=== PATIENT | male | born 1940 | race Caucasian/White ===

== ENCOUNTER 2017-04-13 17:45 | Inpatient (IN) | payer MEDICARE ==
[2017-04-13 18:12] VITALS: BMI 42.0
--- NOTE | 2017-04-13 18:15 | CT ---
PROCEDURE: CT HEAD WITHOUT CONTRAST. HISTORY: CODE STROKE COMPARISON: None available. TECHNIQUE: Axial computed tomography images were obtained through the head/brain without intravenous contrast. Radiation dose: Total exam DLP = 988 mGy-cm. This CT exam was performed using one or more of the following dose reduction techniques: Automated exposure control, adjustment of the mA and/or kV according to patient size, and/or use of iterative reconstruction technique. FINDINGS: HEMORRHAGE: No intracranial hemorrhage. BRAIN: No mass effect or edema. 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 VENTRICLES: Unremarkable. No hydrocephalus. CALVARIUM: Unremarkable. PARANASAL SINUSES: Unremarkable as visualized. No significant inflammatory changes. MASTOID AIR CELLS: Unremarkable as visualized. No inflammatory changes. OTHER FINDINGS: None. IMPRESSION: No bleed..
[2017-04-13] MEDS ORDERED: Aspirin 325 mg EC Tablets PO STA (18:25)
[2017-04-13 18:29] LABS: BASO # 0.1 K/uL (0.0-0.2); BASO % 0.7 % (0.0-2.0); EOS # 0.4 K/uL (0.0-0.7); EOS % 3.9 % (0.0-4.0); HEMATOCRIT 41.2 % (35.0-51.0); LYMPH # 1.3 K/uL (1.0-4.3); LYMPH % 13.3 % (20.0-40.0); MEAN CELL VOLUME 88.8 fL (80.0-94.0); MEAN CORPUSCULAR HEMOGLOBIN 29.6 pg (27.0-31.0); MEAN CORPUSCULAR HGB CONC 33.4 g/dL (33.0-37.0); MEAN PLATELET VOLUME 7.8 fL (7.2-11.7); RED CELL DISTRIBUTION WIDTH 13.7 % (11.5-14.5); WHITE BLOOD COUNT 9.6 K/uL (4.8-10.8)
[2017-04-13 18:36] LABS: CHLORIDE 100 mmol/L (98-107); SODIUM 135 mmol/L (132-148)
[2017-04-13 18:37] LABS: POTASSIUM 5.4 mmol/L (3.6-5.2)
[2017-04-13 18:38] LABS: ALB/GLOB RATIO 1.4 (1.0-2.1); ALKALINE PHOSPHATASE 56 U/L (38-126); AST/SGOT 23 U/L (17-59); BILIRUBIN,TOTAL 0.6 mg/dL (0.2-1.3); BLOOD UREA NITROGEN 42 mg/dL (9-20); CARBON DIOXIDE 26 mmol/L (22-30); CHOLESTEROL 122 mg/dL (0-199); GFR AFRICAN-AMERICAN 40; INR 1.2; TOTAL PROTEIN 7.1 g/dL (6.3-8.3)
[2017-04-13 18:39] LABS: ALT/SGPT 30 U/L (21-72); CALCIUM 8.7 mg/dl (8.6-10.4); GLUCOSE,RANDOM 255 mg/dL (75-110)
--- NOTE | 2017-04-13 18:56 | C.PDOC ---
History Of Present Illness 77 y/o male presents to the emergency department with complains of right facial paresthesia droop and left arm heaviness paresthesia. Pt with history of CVA with prior aphasia, rehabilitated back to normal vocabulary. Pt states symptoms are improving. Denies fever, chest pain, SOB, headache, vomiting or any other complaints. Time Seen by Provider: 04/13/17 18:03 Chief Complaint (Nursing): Weakness/Neurological Deficit History Per: Patient History/Exam Limitations: no limitations Onset/Duration Of Symptoms: Mins Current Symptoms Are (Timing): Better Fall Associated With With Symptoms: No Severity: Mild Recent travel outside of the [place]: No - Symptoms Of CVA Recent Head Trauma: No Past Medical History Reviewed: Historical Data, Nursing Documentation, Vital Signs Vital Signs: Last Vital Signs Temp 98.1 F 04/13/17 17:54 Pulse 92 H 04/13/17 18:15 Resp 18 04/13/17 18:15 BP 135/72 04/13/17 18:15 Pulse Ox 96 04/13/17 19:18 - Medical History PMH: Diabetes, HTN, Hypercholesterolemia Surgical History: CABG (2011) - [facility] Procedures ENDO EXCISION/DEST OF LESION OR TISSUE OF STOMACH (12/31/14) Family History: States: Unknown Family Hx - Social History Hx Tobacco Use: No Hx Alcohol Use: Yes Hx Substance Use: No - Immunization History Hx Tetanus Toxoid Vaccination: No Hx Influenza Vaccination: Yes Hx Pneumococcal Vaccination: No Review Of Systems Except As Marked, All Systems Reviewed And Found Negative. Constitutional: Negative for: Fever Cardiovascular: Negative for: Chest Pain Respiratory: Negative for: Shortness of Breath Gastrointestinal: Negative for: Vomiting Neurological: Positive for: Other (right facial paresthesia droop, left arm heaviness paresthesia). Negative for: Headache Physical Exam - Physical Exam Appears: Non-toxic, No Acute Distress Skin: Warm, Dry, No Rash Head: Atraumatic, Normacephalic Eye(s): bilateral: Normal Inspection, PERRL, EOMI Neck: Normal, Normal ROM, Supple Chest: Symmetrical Cardiovascular: Rhythm Regular, No Murmur Respiratory: Normal Breath Sounds, No Rales, No Rhonchi, No Wheezing Gastrointestinal/Abdominal: Normal Exam, Soft, No Tenderness Extremity: Normal ROM, Other (Extremities normal) Extremity: Bilateral: Atraumatic Neurological/Psych: Oriented x3, Normal Speech, Normal Cognition, Normal Motor, Normal Sensation, Other (mild right facial droop) ED Course And Treatment - Laboratory Results Result Diagrams: 04/13/17 18:23 04/13/17 18:23 Lab Interpretation: Abnormal (mild elev glu) ECG: Interpreted By Wy ECG Rhythm: Sinus Rhythm ECG Interpretation: Normal Rate From EC O2 Sat by Pulse Oximetry: 96 (room air) Pulse Ox Interpretation: Normal - Radiology CXR: Interpreted by Me CXR Interpretation: Yes: No Acute Disease, Other (mild widened mediastinum not sig changed from prior) - CT Scan/US CT head Other Rad Studies (CT/US): Read By Radiologist, Radiology Report Reviewed CT/US Interpretation: FINDINGS: HEMORRHAGE: No intracranial hemorrhage. BRAIN : No mass effect or edema. 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 VENTRICLES : Unremarkable. No hydrocephalus. CALVARIUM: Unremarkable. PARANASAL SINUSES : Unremarkable as visualized. No significant inflammatory changes. MASTOID AIR CELLS: Unremarkable as visualized. No inflammatory changes. OTHER FINDINGS : None. IMPRESSION: No bleed.. Progress Note: Plan: CT head, EKG, labs, CXR, UA, aspirin Reevaluation Time: 19:20 Reassessment Condition: Improved (symptoms resolved.) - Physician Consult Information Outcome Of Conversation: 1914: d/w Dr. Yolanda Seo- Medicine [employer] Consultant- ok to Tele Obs. NIHSS Stroke Scale - Date/Time Evaluation Performed Date Performed: 04/13/17 Time Performed: 17:55 - How Severe is the Stoke Level of Consciousness: 0=Alert LOC to Questions: 0=Both comments correct LOC to commands: 0=Obeys both correctly Best Gaze: 0=Normal Visual: 0=No visual loss Facial: 1=Minor asymmetry (minor R facial droop) Motor Arm - Left: 0=No drift Motor Arm - Right: 0=No drift Motor Leg - Left: 0=No drift Motor Leg - Right: 0=No drift Limb Ataxia: 0=Absent Sensory: 0=Normal Best Language: 0=No aphasia Dysarthia: 0=Normal articulation Extinction & Inattention (Neglect): 0=Normal, no object Score: 1 Severity Of Stroke: 1-4= Minor Stroke rTPA Inclusion/Exclusion - Refusal of Treatment Patient Refused Treatment: No - Inclusion Criteria for Altepase Patient is 18 years or Older: Yes The Clinical Diagnosis of Ischemic Stroke That is Causing a Potentially Disabling Neurological Deficit: Yes Time of Onset is Well Established to be Less Than 270 Minute Before Treatment Would Begin: Yes Risk/Benefit Discussed With Patient/Family Member Present: No - Exclusion Criteria for Altepase Uncontrolled Hypertension at Time of Treatment (Systolic BP above 185 or Diastolic BP above 110 mmHg): No Known Bleeding Diathesis Including but Not Limited to: Platelets Below 100,000/ mm,PTT Above 40 sec After Heparin Use, Current Use of Oral Anitcoagulant With INR Greater Than 1.7 or PT Greater Than 15 secs: No Evidence of an Intracranial Hemorrhage: No Evidence of Major Acute Infarct With Signs Greater Than 1/3 MCA Territory: No Suspicion of Subarachnoid Hemorrhage on Pretreatment Evaluation Even if CT Head Negative For Hemorrhage: No - Warning to TPA With Conditions Following Conditions Weighed Against Anticipated Benefit: Yes Condition: Stroke Serevity Too Mild Medical Decision Making Medical Decision Making: mild recurrent symptoms resolved [employer]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 Disposition Doctor Will See Patient In The: Hospital Counseled Patient/Family Regarding: Studies Performed - Disposition Disposition: HOSPITALIZED Disposition Time: 19:21 Condition: GOOD - POA Core Measure Indicators: Code Stroke - Clinical Impression Clinical Impression: Facial droop, Paresthesia of left arm, TIA (transient ischemic attack) - Scribe Statement The provider has reviewed the documentation as recorded by the Max Gibbs Provider Attestation: All medical record entries made by the Max were at my direction and personally dictated by me. I have reviewed the chart and agree that the record accurately reflects my personal performance of the history, physical exam, medical decision making, and the department course for this patient. I have also personally directed, reviewed, and agree with the discharge instructions and disposition.
--- NOTE | 2017-04-13 19:03 | C.PDOC ---
Time Seen by Provider: 04/13/17 18:03 Chief Complaint (Nursing): Weakness/Neurological Deficit Past Medical History Vital Signs: Last Vital Signs Temp 98.1 F 04/13/17 17:54 Pulse 92 H 04/13/17 18:15 Resp 18 04/13/17 18:15 BP 135/72 04/13/17 18:15 Pulse Ox 96 04/13/17 18:15 - Medical History PMH: Diabetes, HTN, Hypercholesterolemia Surgical History: CABG (2011) - [facility] Procedures ENDO EXCISION/DEST OF LESION OR TISSUE OF STOMACH (12/31/14) Family History: States: Unknown Family Hx - Social History Hx Tobacco Use: No Hx Alcohol Use: Yes Hx Substance Use: No - Immunization History Hx Tetanus Toxoid Vaccination: No Hx Influenza Vaccination: Yes Hx Pneumococcal Vaccination: No ED Course And Treatment - Laboratory Results Result Diagrams: 04/13/17 18:23 04/13/17 18:23 O2 Sat by Pulse Oximetry: 96
[2017-04-13] MEDS ORDERED: Aspirin 325 mg EC Tablets PO ONE (20:11)
[2017-04-14] MEDS ORDERED: Sod Polystyrene Sulf 15 gm/60 ml Oral Susp PO ONE (01:43)
[2017-04-14 07:32] LABS: BILIRUBIN,TOTAL 0.6 mg/dL (0.2-1.3)
[2017-04-14 07:33] LABS: ALB/GLOB RATIO 1.3 (1.0-2.1); CALCIUM 8.5 mg/dl (8.6-10.4); TOTAL PROTEIN 6.7 g/dL (6.3-8.3)
[2017-04-14] MEDS: Enoxaparin 40 mg Syringe SC SCH (10:10)
--- NOTE | 2017-04-14 13:36 | CP.PCM.HP ---
Past Patient History - Infectious Disease Hx of Infectious Diseases: None - Past Medical History & Family History Past Medical History?: Yes - Past Social History Smoking Status: Former Smoker - CARDIAC Hx Hypercholesterolemia: Yes Hx Hypertension: Yes - PULMONARY Hx Respiratory Disorders: No - NEUROLOGICAL Hx Neurological Disorder: Yes HX Cerebrovascular Accident: Yes - HEENT Hx HEENT Problems: No - RENAL Hx Chronic Kidney Disease: No - ENDOCRINE/METABOLIC Hx Endocrine Disorders: Yes Hx Diabetes Mellitus Type 2: Yes - HEMATOLOGICAL/ONCOLOGICAL Hx Blood Disorders: Yes Hx Blood Transfusions: Yes Hx Blood Transfusion Reaction: No - INTEGUMENTARY Hx Dermatological Problems: No - MUSCULOSKELETAL/RHEUMATOLOGICAL Hx Musculoskeletal Disorders: No Hx Falls: No - GASTROINTESTINAL Hx Gastrointestinal Disorders: Yes Hx Constipation: Yes Hx Nausea: Yes Hx Vomiting: Yes - GENITOURINARY/GYNECOLOGICAL Hx Genitourinary Disorders: No - PSYCHIATRIC Hx Psychophysiologic Disorder: No Hx Substance Use: No - SURGICAL HISTORY Hx Surgeries: Yes Hx Coronary Artery Bypass Graft: Yes (2011) - ANESTHESIA Hx Anesthesia: Yes Hx Anesthesia Reactions: No Hx Malignant Hyperthermia: No Meds Allergies/Adverse Reactions: Allergies Allergy/AdvReac Type Severity Reaction Status Date / Time No Known Allergies Allergy Verified 04/13/17 18:11 Physical Exam - Constitutional Appears: Well - Head Exam Head Exam: ATRAUMATIC, NORMAL INSPECTION, NORMOCEPHALIC - Eye Exam Eye Exam: EOMI, Normal appearance, PERRL Pupil Exam: NORMAL ACCOMODATION, PERRL - ENT Exam ENT Exam: Mucous Membranes Moist, Normal Exam - Neck Exam Neck exam: Positive for: Normal Inspection - Respiratory Exam Respiratory Exam: Decreased Breath Sounds - Cardiovascular Exam Cardiovascular Exam: REGULAR RHYTHM, +S1, +S2 - GI/Abdominal Exam GI & Abdominal Exam: Diminished Bowel Sounds, Soft - Rectal Exam Rectal Exam: Deferred Results - Vital Signs Recent Vital Signs: Last Vital Signs Temp 98.3 F 04/13/17 23:25 Pulse 85 04/14/17 07:40 Resp 20 04/13/17 23:25 BP 137/77 04/13/17 23:25 Pulse Ox 96 04/13/17 23:25 - Labs Result Diagrams: 04/13/17 18:23 04/14/17 07:00 Labs: Laboratory Results - last 24 hr 04/13/17 04/14/17 04/14/17 21:51 06:13 07:00 Sodium 138 Potassium 5.0 Chloride 101 Carbon Dioxide 28 Anion Gap 14 BUN 38 H Creatinine 1.8 H Est GFR ( Amer) 45 Est GFR (Non-Af Amer) 37 POC Glucose (mg/dL) 274 H 280 H Random Glucose 269 H Calcium 8.5 L Total Bilirubin 0.6 AST 22 ALT 31 Alkaline Phosphatase 53 Total Protein 6.7 Albumin 3.8 Globulin 2.9 Albumin/Globulin Ratio 1.3 04/14/17 11:10 Sodium Potassium Chloride Carbon Dioxide Anion Gap BUN Creatinine Est GFR ( Amer) Est GFR (Non-Af Amer) POC Glucose (mg/dL) 328 H Random Glucose Calcium Total Bilirubin AST ALT Alkaline Phosphatase Total Protein Albumin Globulin Albumin/Globulin Ratio Assessment & Plan (1) Facial droop Status: Acute (2) Paresthesia of left arm Status: Acute (3) TIA (transient ischemic attack) Status: Acute (4) Abdominal pain Status: Acute (5) CAD (coronary artery disease) of artery bypass graft Status: Acute (6) Dental abscess Status: Acute (7) Dental caries Status: Acute (8) Diabetes mellitus Status: Acute (9) Hypercholesterolemia Status: Acute (10) Leukocytosis Status: Acute (11) Renal insufficiency Status: Acute - Assessment and Plan (Free Text) Plan: asp lovenox crestor homemed reconciliation cardio neuro renu same
[2017-04-14] MEDS: (Novolin R) Insulin Human Regular 100 units/ml vial SC SCH ×2 (17:30→22:18)
--- NOTE | 2017-04-14 17:35 | CON ---
DATE: 04/14/2017 CHIEF COMPLAINT: Right facial tingling, numbness and questionable droop with left arm paresthesias, which does not correlate with the location of cerebrovascular accident. HISTORY OF PRESENT ILLNESS: A 77-year-old man with past medical history of diabetes type 2, hyperten tiana, hypercholesterolemia, history of coronary artery disease, CABG 2011, who came in with complaint s of right facial paresthesia, questionable droop, left arm heaviness and paresthesia, but no focal w eakness. CT head showed no acute intracranial abnormality. Currently, he has no focal neurological deficits except for some mild diabetic peripheral neuropathy on examination. He is on aspirin and Pl avix and Crestor for stroke prevention. No acute events overnight. It is noted that he has had hypo glycemic episodes as well during his course and has A1c of 8.7 and also has some elevated potassium o f 5.4 when he came in with elevated BUN and creatinine, which is more than his baseline. PAST MEDICAL HISTORY: Diabetes, hypertension, dyslipidemia, coronary artery disease, coronary artery bypass graft. FAMILY HISTORY: Noncontributory. PAST SURGICAL HISTORY: CABG. REVIEW OF SYSTEMS: A 14-point review of systems is negative except for the HPI. ALLERGIES: No known drug allergies. CURRENT MEDICATIONS: Reviewed via nurses reconciliation sheet. PHYSICAL EXAMINATION: VITAL SIGNS: Temperature 98.3, pulse rate 86, blood pressure 137/77 respiratory rate 20, oxygen satu ration 96% on room air. GENERAL: The patient is sitting up in bed in no acute distress. HEENT: Atraumatic, normocephalic. PERRLA. Extraocular muscles intact. NECK: Supple, no JVD, no adenopathy noted. LUNGS: Clear to auscultation. No adventitious sounds. HEART: S1, S2, normal rate and rhythm. No murmurs, rubs, or gallops. ABDOMEN: Soft, nontender, nondistended. Bowel sounds present. EXTREMITIES: No clubbing, no cyanosis. Peripheral pulses felt bilaterally. NEUROLOGIC: The patient is alert, oriented to person, place, month and year. Speech is fluent, with out any errors. Cranial nerves II through XII are intact. MOTOR: Moves all extremities, toes downgoing bilaterally. SENSORY: Light touch, pinprick intact up to calves, diffuse vibration of the toes. DTRs are 2+ thro ughout and 1 at the ankles. COORDINATION: Jqqric-es-tsws intact. GAIT: Deferred for now. LABORATORY DATA: A1c is 8.7. Sodium is 138, potassium 5, chloride of 101, carbon dioxide 28, BUN of 33, creatinine 1.8, ____ 269. ASSESSMENT AND PLAN: This is a 77-year-old man who has past medical history of hypertension, dyslipi demia, coronary artery disease, status post coronary artery bypass graft in 2011, diabetes type 2 wit h an A1c of 8.7 which indicates poorly controlled diabetes. He came in with some right facial parest hesias and questionable droop with left arm heaviness, paresthesia, which has currently resolved. No focal neurological deficits but mild diabetic peripheral neuropathy on examination. He did have kofi vated potassium of 5.4 when he came in, elevated blood sugars and elevated BUN and creatinine, which is likely responsible for his underlying paresthesias. 1. At this time, recommend aspirin 81 mg and Plavix 75 mg and Crestor for stroke prevention. 2. Get better control of his blood sugars, keep blood sugars 140 - 180. Diabetic education needs to be given his elevated A1c of 8.7, he needs better hyperglycemic control. 3. At this time he is clinically stable from my standpoint and can follow up with his primary care benjamin tan. Randy Hamilton MD cc: [phone] TT: 04/14/2017 17:34:57 Confirmation # [id number] Dictation # [id number]
--- NOTE | 2017-04-14 20:06 | RAD ---
HISTORY: code stroke COMPARISON: Comparison chest 12/31/2014 FINDINGS: LUNGS: Poor inspiration with low lung volumes, mild crowded bronchovascular markings and mild bibasilar atelectasis. PLEURA: No significant pleural effusion identified, no pneumothorax apparent. CARDIOVASCULAR: Heart appears enlarged of. Sternotomy wires again noted. The OSSEOUS STRUCTURES: No significant abnormalities. VISUALIZED UPPER ABDOMEN: Normal. OTHER FINDINGS: None. IMPRESSION: Poor inspiration with low lung volumes, mild crowded bronchovascular markings and mild bibasilar atelectasis.
[2017-04-15 07:02] LABS: URINE BILIRUBIN NEGATIVE (NEGATIVE); URINE BLOOD NEGATIVE (NEGATIVE); URINE COLOR Yellow (YELLOW); URINE GLUCOSE (UA) 3+ mg/dL (Normal); URINE KETONE NEGATIVE (NEGATIVE); URINE LEUKOCYTE ESTERASE NEG Leu/uL (Negative); URINE PROTEIN NEGATIVE (NEGATIVE); URINE UROBILINOGEN NORMAL mg/dL (0.2-1.0)
[2017-04-15] MEDS: (Novolin R) Insulin Human Regular 100 units/ml vial SC SCH ×4 (08:22→21:51)
[2017-04-15] MEDS: Enoxaparin 40 mg Syringe SC SCH (09:29)
--- NOTE | 2017-04-15 12:18 | CP.PCM.PN ---
Subjective - Date & Time of Evaluation Date of Evaluation: 04/15/17 Objective - Vital Signs/Intake and Output Vital Signs (last 24 hours): Temp Pulse Resp BP Pulse Ox 97.6 F 77 20 142/78 92 L 04/15/17 08:00 04/15/17 08:00 04/15/17 08:00 04/15/17 08:00 04/15/17 08:00 Intake and Output: 04/15/17 04/15/17 06:59 18:59 Intake Total 240 Output Total 500 Balance -260 - Medications Medications: Current Medications Aspirin (Aspirin) 325 mg PO DAILY [facility] Last Admin: 04/15/17 09:29 Dose: 325 mg Clopidogrel Bisulfate (Plavix) 75 mg PO DAILY [facility] Last Admin: 04/15/17 09:29 Dose: 75 mg Enoxaparin Sodium (Lovenox) 40 mg SC DAILY [facility] Last Admin: 04/15/17 09:29 Dose: 40 mg Famotidine (Pepcid) 20 mg PO DAILY [facility] Last Admin: 04/15/17 09:29 Dose: 20 mg Glimepiride (Amaryl) 4 mg PO DAILY@0800 [facility] Last Admin: 04/15/17 08:22 Dose: 4 mg Insulin Human Regular (Novolin R) 0 unit SC [facility] PRN Reason: Protocol Last Admin: 04/15/17 08:22 Dose: 4 unit Rosuvastatin Calcium (Crestor) 20 mg PO [facility] Last Admin: 04/14/17 21:17 Dose: 20 mg - Labs Labs: 04/14/17 07:00 PT 13.9 SECONDS (9.7-12.2) H 04/13/17 18:23 INR 1.2 04/13/17 18:23 APTT 75 SECONDS (21-34) H 04/13/17 18:23 Assessment and Plan (1) Facial droop Status: Acute (2) Paresthesia of left arm Status: Acute (3) TIA (transient ischemic attack) Status: Acute (4) Abdominal pain Status: Acute (5) CAD (coronary artery disease) of artery bypass graft Status: Acute (6) Dental abscess Assessment & Plan: cardiology added contis robyn neuro pt feels better on asp and also o crestor awiting neuro to see p Status: Acute (7) Dental caries Status: Acute (8) Diabetes mellitus Status: Acute (9) Hypercholesterolemia Status: Acute (10) Leukocytosis Status: Acute (11) Renal insufficiency Status: Acute
[2017-04-16] MEDS: (Novolin R) Insulin Human Regular 100 units/ml vial SC SCH ×4 (08:00→23:00)
[2017-04-16] MEDS: Enoxaparin 40 mg Syringe SC SCH (10:21)
--- NOTE | 2017-04-16 12:26 | CARD ---
APPROVED REPORT EKG Measurement Heart [id number] <Conclusion> Normal sinus rhythm Inferior infarct, age undetermined Cannot rule out Anterior infarct, age undetermined Abnormal ECG
--- NOTE | 2017-04-16 12:50 | CP.PCM.CON ---
History of Present Illness - History of Present Illness History of Present Illness: 57-year-old gentleman with prior history of type 2 diabetes, hypertension, and mixed hyperlipidemia. It was complicated with coronary artery disease post coronary artery bypass surgery the year 2011, at [facility]. He did well and now he was admitted with questionable drooping of the face in addition to paresthesia. Seen by neurology no further deficits and the finding of the imaging does not correlate with the symptoms. No chest pain or shortness of breath no syncope follow-up with echocardiogram to evaluate coronary artery disease post CABG. Review of Systems - Constitutional Constitutional: Anorexia, Weakness - EENT Eyes: absent: Discharge Ears: absent: Ear Discharge, Dizziness Nose/Mouth/Throat: absent: Epistaxis - Cardiovascular Cardiovascular: absent: Acrocyanosis, Chest Pain, Diaphoresis, Palpitations, Pedal Edema, Syncope - Respiratory Respiratory: absent: Cough, Dyspnea, Hemoptysis - Gastrointestinal Gastrointestinal: absent: Abdominal Pain, Diarrhea, Hematochezia, Vomiting - Genitourinary Genitourinary: absent: Change in Urinary Stream Past Patient History - Infectious Disease Hx of Infectious Diseases: None - Past Medical History & Family History Past Medical History?: Yes - Past Social History Smoking Status: Former Smoker - CARDIAC Hx Hypertension: Yes - PULMONARY Hx Respiratory Disorders: No - NEUROLOGICAL HX Cerebrovascular Accident: Yes - HEENT Hx HEENT Problems: No - RENAL Hx Chronic Kidney Disease: No - ENDOCRINE/METABOLIC Hx Endocrine Disorders: Yes Hx Diabetes Mellitus Type 2: Yes - HEMATOLOGICAL/ONCOLOGICAL Hx Blood Disorders: Yes Hx Blood Transfusions: Yes Hx Blood Transfusion Reaction: No - INTEGUMENTARY Hx Dermatological Problems: No - MUSCULOSKELETAL/RHEUMATOLOGICAL Hx Musculoskeletal Disorders: No Hx Falls: No - GASTROINTESTINAL Hx Gastrointestinal Disorders: Yes Hx Constipation: Yes Hx Nausea: Yes Hx Vomiting: Yes - GENITOURINARY/GYNECOLOGICAL Hx Genitourinary Disorders: No - PSYCHIATRIC Hx Psychophysiologic Disorder: No Hx Substance Use: No - SURGICAL HISTORY Hx Surgeries: Yes Hx Coronary Artery Bypass Graft: Yes (2011) - ANESTHESIA Hx Anesthesia: Yes Hx Anesthesia Reactions: No Hx Malignant Hyperthermia: No Meds Allergies/Adverse Reactions: Allergies Allergy/AdvReac Type Severity Reaction Status Date / Time No Known Allergies Allergy Verified 04/13/17 18:11 - Medications Medications: Current Medications Aspirin (Aspirin) 325 mg PO DAILY [facility] Last Admin: 04/16/17 10:21 Dose: 325 mg Clopidogrel Bisulfate (Plavix) 75 mg PO DAILY [facility] Last Admin: 04/16/17 10:21 Dose: 75 mg Enoxaparin Sodium (Lovenox) 40 mg SC DAILY [facility] Last Admin: 04/16/17 10:21 Dose: 40 mg Famotidine (Pepcid) 20 mg PO DAILY [facility] Last Admin: 04/16/17 10:21 Dose: 20 mg Glimepiride (Amaryl) 4 mg PO DAILY@0800 [facility] Last Admin: 04/16/17 10:21 Dose: 4 mg Insulin Human Regular (Novolin R) 0 unit SC [facility] PRN Reason: Protocol Last Admin: 04/16/17 08:00 Dose: 4 unit Rosuvastatin Calcium (Crestor) 20 mg PO [facility] Last Admin: 04/15/17 21:52 Dose: 20 mg Physical Exam - Constitutional Appears: No Acute Distress - Head Exam Head Exam: ATRAUMATIC - Eye Exam Eye Exam: EOMI - ENT Exam ENT Exam: Mucous Membranes Moist - Neck Exam Neck exam: Negative for: Lymphadenopathy, Thyromegaly - Respiratory Exam Respiratory Exam: Clear to Auscultation Bilateral. absent: Rales - Cardiovascular Exam Cardiovascular Exam: REGULAR RHYTHM, Systolic Murmur - GI/Abdominal Exam GI & Abdominal Exam: Normal Bowel Sounds. absent: Organomegaly - Rectal Exam Rectal Exam: Deferred - Extremities Exam Extremities exam: Positive for: normal capillary refill. Negative for: calf tenderness - Neurological Exam Neurological exam: Alert, Oriented x3 - Psychiatric Exam Psychiatric exam: Normal Mood - Skin Skin Exam: Dry Results - Vital Signs Recent Vital Signs: Last Vital Signs Temp 97.5 F L 04/16/17 08:47 Pulse 80 04/16/17 08:47 Resp 18 04/16/17 08:47 BP 164/75 H 04/16/17 08:47 Pulse Ox 95 04/16/17 08:47 - Labs Result Diagrams: 04/16/17 14:16 04/16/17 14:16 Labs: Laboratory Results - last 24 hr 04/15/17 04/16/17 04/16/17 21:20 01:51 06:38 POC Glucose (mg/dL) 344 H 309 H 276 H 04/16/17 11:27 POC Glucose (mg/dL) 351 H Assessment & Plan (1) Paresthesia of left arm Status: Acute (2) TIA (transient ischemic attack) Status: Acute (3) CAD (coronary artery disease) of artery bypass graft Status: Chronic Comment: Stable clinically follow-up with echocardiogram (4) Diabetes mellitus Status: Chronic (5) Hypercholesterolemia Status: Chronic (6) Renal insufficiency Status: Acute
[2017-04-16 14:31] LABS: BASO # 0.1 K/uL (0.0-0.2); BASO % 0.7 % (0.0-2.0); EOS # 0.3 K/uL (0.0-0.7); EOS % 3.5 % (0.0-4.0); HEMATOCRIT 40.9 % (35.0-51.0); LYMPH # 1.1 K/uL (1.0-4.3); LYMPH % 12.8 % (20.0-40.0); MEAN CORPUSCULAR HEMOGLOBIN 29.1 pg (27.0-31.0); MEAN CORPUSCULAR HGB CONC 32.7 g/dL (33.0-37.0); MEAN PLATELET VOLUME 8.1 fL (7.2-11.7); MONO # 0.9 K/uL (0.0-0.8); RED CELL DISTRIBUTION WIDTH 13.7 % (11.5-14.5); WHITE BLOOD COUNT 8.7 K/uL (4.8-10.8)
[2017-04-16 14:48] LABS: POTASSIUM 4.8 mmol/L (3.6-5.2)
[2017-04-16 14:50] LABS: BILIRUBIN,TOTAL 0.6 mg/dL (0.2-1.3)
[2017-04-16 14:51] LABS: ALB/GLOB RATIO 1.2 (1.0-2.1)
[2017-04-16 14:52] LABS: CALCIUM 8.9 mg/dl (8.6-10.4)
[2017-04-16 16:09] VITALS: RESP 20
--- NOTE | 2017-04-16 17:33 | CP.PCM.PN ---
Subjective - Date & Time of Evaluation Date of Evaluation: 04/16/17 Time of Evaluation: 11:40 - Subjective Subjective: clinically same Objective - Vital Signs/Intake and Output Vital Signs (last 24 hours): Temp Pulse Resp BP Pulse Ox 97.9 F 78 20 163/79 H 96 04/16/17 15:00 04/16/17 15:00 04/16/17 15:00 04/16/17 15:00 04/16/17 15:00 Intake and Output: 04/16/17 04/16/17 06:59 18:59 Output Total 500 Balance -500 - Medications Medications: Current Medications Amlodipine Besylate (Norvasc) 10 mg PO DAILY [facility] Last Admin: 04/16/17 13:23 Dose: 10 mg Aspirin (Aspirin) 325 mg PO DAILY [facility] Last Admin: 04/16/17 10:21 Dose: 325 mg Clopidogrel Bisulfate (Plavix) 75 mg PO DAILY [facility] Last Admin: 04/16/17 10:21 Dose: 75 mg Enoxaparin Sodium (Lovenox) 40 mg SC DAILY [facility] Last Admin: 04/16/17 10:21 Dose: 40 mg Famotidine (Pepcid) 20 mg PO DAILY [facility] Last Admin: 04/16/17 10:21 Dose: 20 mg Glimepiride (Amaryl) 4 mg PO DAILY@0800 [facility] Last Admin: 04/16/17 10:21 Dose: 4 mg Hydrochlorothiazide (Hydrodiuril) 25 mg PO DAILY [facility] Insulin Human Regular (Novolin R) 0 unit SC [facility] PRN Reason: Protocol Last Admin: 04/16/17 13:00 Dose: 8 unit Losartan Potassium (Cozaar) 100 mg PO DAILY [facility] Last Admin: 04/16/17 13:23 Dose: 100 mg Metformin HCl (Glucophage) 500 mg PO BIDBS [facility] Metoprolol Tartrate (Lopressor) 50 mg PO BID [facility] Rosuvastatin Calcium (Crestor) 20 mg PO HS [facility] Last Admin: 04/15/17 21:52 Dose: 20 mg - Labs Labs: 04/16/17 14:16 04/16/17 14:16 PT 13.9 SECONDS (9.7-12.2) H 04/13/17 18:23 INR 1.2 04/13/17 18:23 APTT 75 SECONDS (21-34) H 04/13/17 18:23 - Constitutional Appears: Well - Head Exam Head Exam: ATRAUMATIC, NORMAL INSPECTION, NORMOCEPHALIC - Eye Exam Eye Exam: EOMI, Normal appearance, PERRL Pupil Exam: NORMAL ACCOMODATION, PERRL - ENT Exam ENT Exam: Mucous Membranes Moist, Normal Exam - Neck Exam Neck Exam: Full ROM, Normal Inspection. absent: Lymphadenopathy - Respiratory Exam Respiratory Exam: Decreased Breath Sounds - Cardiovascular Exam Cardiovascular Exam: REGULAR RHYTHM, +S1, +S2 - GI/Abdominal Exam GI & Abdominal Exam: Soft, Diminished Bowel Sounds - Rectal Exam Rectal Exam: Deferred Assessment and Plan (1) Facial droop Status: Acute (2) Paresthesia of left arm Status: Acute (3) TIA (transient ischemic attack) Status: Acute (4) Abdominal pain Status: Acute (5) CAD (coronary artery disease) of artery bypass graft Status: Chronic (6) Dental abscess Status: Acute (7) Dental caries Status: Acute (8) Diabetes mellitus Status: Chronic (9) Hypercholesterolemia Status: Chronic (10) Leukocytosis Status: Acute (11) Renal insufficiency Status: Acute
[2017-04-17 02:51] VITALS: O2SAT 95
[2017-04-17] MEDS: (Novolin R) Insulin Human Regular 100 units/ml vial SC SCH ×3 (07:55→17:38)
[2017-04-17] MEDS: Enoxaparin 40 mg Syringe SC SCH (09:39)
--- NOTE | 2017-04-17 12:11 | CP.PCM.PN ---
Subjective - Date & Time of Evaluation Date of Evaluation: 04/17/17 Time of Evaluation: 12:00 - Subjective Subjective: Doing well no further neurodeficit, echocardiogram revealed LVH with normal left ventricular contractility and diastolic dysfunction. No aortic stenosis and no pericardial effusion. Stable cardiac continue medical treatment Objective - Vital Signs/Intake and Output Vital Signs (last 24 hours): Temp Pulse Resp BP Pulse Ox 98.4 F 93 H 20 125/65 95 04/17/17 04:25 04/17/17 07:00 04/17/17 04:25 04/17/17 04:25 04/17/17 04:25 - Medications Medications: Current Medications Amlodipine Besylate (Norvasc) 10 mg PO DAILY [facility] Last Admin: 04/17/17 09:39 Dose: 10 mg Aspirin (Aspirin) 325 mg PO DAILY [facility] Last Admin: 04/17/17 09:39 Dose: 325 mg Clopidogrel Bisulfate (Plavix) 75 mg PO DAILY [facility] Last Admin: 04/17/17 09:39 Dose: 75 mg Enoxaparin Sodium (Lovenox) 40 mg SC DAILY [facility] Last Admin: 04/17/17 09:39 Dose: 40 mg Famotidine (Pepcid) 20 mg PO DAILY [facility] Last Admin: 04/17/17 09:39 Dose: 20 mg Glimepiride (Amaryl) 4 mg PO DAILY@0800 [facility] Last Admin: 04/17/17 07:55 Dose: 4 mg Hydrochlorothiazide (Hydrodiuril) 25 mg PO DAILY [facility] Last Admin: 04/17/17 11:59 Dose: 25 mg Insulin Human Regular (Novolin R) 0 unit SC [facility] PRN Reason: Protocol Last Admin: 04/17/17 07:55 Dose: 3 unit Losartan Potassium (Cozaar) 100 mg PO DAILY [facility] Last Admin: 04/17/17 09:39 Dose: 100 mg Metformin HCl (Glucophage) 500 mg PO BIDBS [facility] Last Admin: 04/17/17 07:55 Dose: 500 mg Metoprolol Tartrate (Lopressor) 50 mg PO BID [facility] Last Admin: 04/17/17 09:39 Dose: 50 mg Rosuvastatin Calcium (Crestor) 20 mg PO HS [facility] Last Admin: 04/17/17 00:07 Dose: 20 mg - Labs Labs: 04/16/17 14:16 04/16/17 14:16 PT 13.9 SECONDS (9.7-12.2) H 04/13/17 18:23 INR 1.2 04/13/17 18:23 APTT 75 SECONDS (21-34) H 04/13/17 18:23 - Constitutional Appears: Non-toxic - Head Exam Head Exam: ATRAUMATIC - Eye Exam Eye Exam: EOMI - ENT Exam ENT Exam: Mucous Membranes Moist - Neck Exam Neck Exam: absent: Lymphadenopathy, Thyromegaly - Respiratory Exam Respiratory Exam: Clear to Ausculation Bilateral. absent: Rales - Cardiovascular Exam Cardiovascular Exam: Irregular Rhythm, REGULAR RHYTHM - GI/Abdominal Exam GI & Abdominal Exam: Normal Bowel Sounds. absent: Organomegaly - Rectal Exam Rectal Exam: Deferred - Extremities Exam Extremities Exam: Normal Capillary Refill. absent: Calf Tenderness - Neurological Exam Neurological Exam: Alert, Oriented x3 - Psychiatric Exam Psychiatric exam: Anxious - Skin Skin Exam: Dry Assessment and Plan (1) Paresthesia of left arm Status: Acute (2) TIA (transient ischemic attack) Status: Acute (3) CAD (coronary artery disease) of artery bypass graft Status: Chronic (4) Diabetes mellitus Status: Chronic (5) Hypercholesterolemia Status: Chronic (6) Renal insufficiency Status: Acute
--- NOTE | 2017-04-17 12:15 | CARD ---
APPROVED REPORT EXAM: Two-dimensional and M-mode echocardiogram with Doppler and color Doppler. Other Information Quality : GoodRhythm : NSR INDICATION CVA/TIA Cardiac Disease: CAD Syncope CABG M-Mode DIMENSIONS RVDd2.15 (2.1-3.2cm)Left Atrium (MM)3.75 (2.5-4.0cm) IVSd1.13 (0.7-1.1cm)Aortic Root3.05 (2.2-3.7cm) LVDd4.65 (4.0-5.6cm)Aortic Cusp Exc.1.84 (1.5-2.0cm) PWd1.60 (0.7-1.1cm)FS (%) 45 % LVDs2.58 (2.0-3.8cm)LVEF (%)76 (>50%) Aortic Valve AoV Peak Afdjxsai187.5cm/Jeancarlos Peak GR.8mmHg Mitral Valve MV E Unpdykpp31.0cm/sMV A Pdiuihhp442.1cm/sE/A ratio0.7 TDI E/Lateral E'0.0E/Medial E'0.0 Tricuspid Valve TR Peak Hszzjyft252he/sTR Peak Gr.61dxGlEKYC61bmXs LEFT VENTRICLE The left ventricle is normal size. There is normal left ventricular wall thickness. The left ventricular function is normal. The left ventricular ejection fraction is within the normal range. No regional wall motion abnormalities noted. Transmitral Doppler flow pattern is Grade I-abnormal relaxation pattern. The left atrial pressure is normal No left ventricle thrombus noted on this study. There is no ventricular septal defect visualized. There is no left ventricular aneurysm. There is no mass noted in the left ventricle. RIGHT VENTRICLE The right ventricle is normal size. There is normal right ventricular wall thickness. The right ventricular systolic function is normal. ATRIA The left atrium size is normal. The right atrium size is normal. The interatrial septum is intact with no evidence for an atrial septal defect. AORTIC VALVE The aortic valve is normal in structure and function. No aortic regurgitation is present. There is no aortic valvular stenosis. There is no aortic valvular vegetation. MITRAL VALVE The mitral valve is normal in structure and function. There is no evidence of mitral valve prolapse. There is no mitral valve stenosis. There is no mitral valve regurgitation noted. TRICUSPID VALVE The tricuspid valve is normal in structure and function. There is mild tricuspid regurgitation. Right ventricular systolic pressure is estimated at less than 30 mmHg. There is no tricuspid valve prolapse or vegetation. There is no tricuspid valve stenosis. PULMONIC VALVE The pulmonary valve is normal in structure and function. There is no pulmonic valvular regurgitation. There is no pulmonic valvular stenosis. GREAT VESSELS The aortic root is normal in size. The ascending aorta is normal in size. The pulmonary artery is normal. The IVC is normal in size and collapses >50% with inspiration. PERICARDIAL EFFUSION The pericardium appears normal. There is no pleural effusion. <Conclusion> The left ventricular function is normal. The left ventricular ejection fraction is within the normal range. No regional wall motion abnormalities noted.
[2017-04-17 14:05] LABS: BASO % 0.3 % (0.0-2.0); EOS # 0.3 K/uL (0.0-0.7); EOS % 3.2 % (0.0-4.0); HEMATOCRIT 40.2 % (35.0-51.0); LYMPH # 1.3 K/uL (1.0-4.3); LYMPH % 15.5 % (20.0-40.0); MEAN CELL VOLUME 88.7 fL (80.0-94.0); MEAN CORPUSCULAR HEMOGLOBIN 29.2 pg (27.0-31.0); MEAN CORPUSCULAR HGB CONC 32.9 g/dL (33.0-37.0); MEAN PLATELET VOLUME 7.7 fL (7.2-11.7); MONO # 0.8 K/uL (0.0-0.8); MONO % 10.1 % (0.0-10.0); RED CELL DISTRIBUTION WIDTH 13.7 % (11.5-14.5); WHITE BLOOD COUNT 8.1 K/uL (4.8-10.8)
[2017-04-17 14:28] LABS: POTASSIUM 5.4 mmol/L (3.6-5.2)
[2017-04-17 14:30] LABS: ALB/GLOB RATIO 1.3 (1.0-2.1); BILIRUBIN,TOTAL 0.7 mg/dL (0.2-1.3); TOTAL PROTEIN 6.3 g/dL (6.3-8.3)
[2017-04-17 14:31] LABS: CALCIUM 8.9 mg/dl (8.6-10.4)
--- NOTE | 2017-04-17 16:17 | CP.PCM.PN ---
Subjective - Date & Time of Evaluation Date of Evaluation: 04/17/17 Time of Evaluation: 11:20 - Subjective Subjective: clinically same Objective - Vital Signs/Intake and Output Vital Signs (last 24 hours): Temp Pulse Resp BP Pulse Ox 98.4 F 93 H 20 125/65 95 04/17/17 04:25 04/17/17 07:00 04/17/17 04:25 04/17/17 04:25 04/17/17 04:25 - Medications Medications: Current Medications Amlodipine Besylate (Norvasc) 10 mg PO DAILY [facility] Last Admin: 04/17/17 09:39 Dose: 10 mg Aspirin (Aspirin) 325 mg PO DAILY [facility] Last Admin: 04/17/17 09:39 Dose: 325 mg Clopidogrel Bisulfate (Plavix) 75 mg PO DAILY [facility] Last Admin: 04/17/17 09:39 Dose: 75 mg Enoxaparin Sodium (Lovenox) 40 mg SC DAILY [facility] Last Admin: 04/17/17 09:39 Dose: 40 mg Famotidine (Pepcid) 20 mg PO DAILY [facility] Last Admin: 04/17/17 09:39 Dose: 20 mg Glimepiride (Amaryl) 4 mg PO DAILY@0800 [facility] Last Admin: 04/17/17 07:55 Dose: 4 mg Hydrochlorothiazide (Hydrodiuril) 25 mg PO DAILY [facility] Last Admin: 04/17/17 11:59 Dose: 25 mg Insulin Human Regular (Novolin R) [address] [facility] PRN Reason: Protocol Last Admin: 04/17/17 12:16 Dose: 8 unit Losartan Potassium (Cozaar) 100 mg PO DAILY [facility] Last Admin: 04/17/17 09:39 Dose: 100 mg Metformin HCl (Glucophage) 500 mg PO BIDBS [facility] Last Admin: 04/17/17 07:55 Dose: 500 mg Metoprolol Tartrate (Lopressor) 50 mg PO BID [facility] Last Admin: 04/17/17 09:39 Dose: 50 mg Rosuvastatin Calcium (Crestor) 20 mg PO HS [facility] Last Admin: 04/17/17 00:07 Dose: 20 mg - Labs Labs: 04/17/17 13:54 04/17/17 13:54 PT 13.9 SECONDS (9.7-12.2) H 04/13/17 18:23 INR 1.2 04/13/17 18:23 APTT 75 SECONDS (21-34) H 04/13/17 18:23 - Constitutional Appears: Well - Head Exam Head Exam: ATRAUMATIC, NORMAL INSPECTION, NORMOCEPHALIC - Eye Exam Eye Exam: EOMI, Normal appearance, PERRL Pupil Exam: NORMAL ACCOMODATION, PERRL - ENT Exam ENT Exam: Mucous Membranes Moist, Normal Exam - Neck Exam Neck Exam: Full ROM, Normal Inspection. absent: Lymphadenopathy - Respiratory Exam Respiratory Exam: Decreased Breath Sounds - Cardiovascular Exam Cardiovascular Exam: REGULAR RHYTHM, +S1, +S2 - GI/Abdominal Exam GI & Abdominal Exam: Soft, Diminished Bowel Sounds - Rectal Exam Rectal Exam: Deferred Assessment and Plan (1) Facial droop Status: Acute (2) Paresthesia of left arm Status: Acute (3) TIA (transient ischemic attack) Status: Acute (4) Abdominal pain Status: Acute (5) CAD (coronary artery disease) of artery bypass graft Status: Chronic (6) Dental abscess Status: Acute (7) Dental caries Status: Acute (8) Diabetes mellitus Status: Chronic (9) Hypercholesterolemia Status: Chronic (10) Leukocytosis Status: Acute (11) Renal insufficiency Status: Acute
[2017-04-17 16:27] VITALS: BP 132/73; PULSE 71; TEMP 98.1
--- NOTE | 2017-04-17 17:30 | CP.PCM.PN ---
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 Hamilton today, cardiac shrestha stable , continue meidcal treatemnt Seen by Dr. Nicholson , cleared for discharge home ot and f/u with Dr. Bruna nicholson office tomorrow and Dr. Murrieta office on Sunday Discharge plan discussed with patent , who understands and agrees with plan, Pt instructed to returns to ED if symptoms returns Objective - Vital Signs/Intake and Output Vital Signs (last 24 hours): Temp Pulse Resp BP Pulse Ox 98.1 F 71 20 132/73 95 04/17/17 16:00 04/17/17 16:00 04/17/17 16:00 04/17/17 16:00 04/17/17 16:00 - Medications Medications: Current Medications Amlodipine Besylate (Norvasc) 10 mg PO DAILY [facility] Last Admin: 04/17/17 09:39 Dose: 10 mg Aspirin (Aspirin) 325 mg PO DAILY [facility] Last Admin: 04/17/17 09:39 Dose: 325 mg Clopidogrel Bisulfate (Plavix) 75 mg PO DAILY [facility] Last Admin: 04/17/17 09:39 Dose: 75 mg Enoxaparin Sodium (Lovenox) 40 mg SC DAILY [facility] Last Admin: 04/17/17 09:39 Dose: 40 mg Famotidine (Pepcid) 20 mg PO DAILY [facility] Last Admin: 04/17/17 09:39 Dose: 20 mg Glimepiride (Amaryl) 4 mg PO DAILY@0800 [facility] Last Admin: 04/17/17 07:55 Dose: 4 mg Hydrochlorothiazide (Hydrodiuril) 25 mg PO DAILY [facility] Last Admin: 04/17/17 11:59 Dose: 25 mg Insulin Human Regular (Novolin R) 0 unit SC [facility] PRN Reason: Protocol Last Admin: 04/17/17 12:16 Dose: 8 unit Losartan Potassium (Cozaar) 100 mg PO DAILY [facility] Last Admin: 04/17/17 09:39 Dose: 100 mg Metformin HCl (Glucophage) 500 mg PO BIDBS [facility] Last Admin: 04/17/17 07:55 Dose: 500 mg Metoprolol Tartrate (Lopressor) 50 mg PO BID [facility] Last Admin: 04/17/17 09:39 Dose: 50 mg Rosuvastatin Calcium (Crestor) 20 mg PO [facility] Last Admin: 04/17/17 00:07 Dose: 20 mg - Labs Labs: 04/17/17 13:54 04/17/17 13:54 PT 13.9 SECONDS (9.7-12.2) H 04/13/17 18:23 INR 1.2 04/13/17 18:23 APTT 75 SECONDS (21-34) H 04/13/17 18:23
== END 2017-04-17 18:31 | disposition home or self-care (01) | DRG 69 ==
LOC: C.ER 17:45 → C.9E 19:15 → C.6T 19:50 → OBSVTOIN 04-15 19:15
PROVIDERS: ADMIT Internal Medicine Nephrology; ATTEND Internal Medicine Nephrology
DX: G45.9 Transient cerebral ischemic attack, unspecified (principal); E11.42 Type 2 diabetes mellitus with diabetic polyneuropathy; E11.65 Type 2 diabetes mellitus with hyperglycemia; I10 Essential (primary) hypertension; I25.10 Atherosclerotic heart disease of native coronary artery without angina pectoris; D72.829 Elevated white blood cell count, unspecified; N28.9 Disorder of kidney and ureter, unspecified; K04.7 Periapical abscess without sinus; K02.9 Dental caries, unspecified; E78.2 Mixed hyperlipidemia; Z86.73 Personal history of transient ischemic attack (TIA), and cerebral infarction without residual deficits; Z95.1 Presence of aortocoronary bypass graft; Z87.891 Personal history of nicotine dependence; Z79.84 Long term (current) use of oral hypoglycemic drugs

== ENCOUNTER 2017-05-10 09:23 | Inpatient (IN) | payer MEDICARE ==
[2017-05-10 09:30] VITALS: BMI 40.7
[2017-05-10 10:09] LABS: BASO # 0.1 K/uL (0.0-0.2); EOS # 0.2 K/uL (0.0-0.7); EOS % 2.8 % (0.0-4.0); HEMOGLOBIN 13.6 g/dL (12.0-18.0); LYMPH # 1.3 K/uL (1.0-4.3); LYMPH % 16.6 % (20.0-40.0); MEAN CELL VOLUME 90.3 fL (80.0-94.0); MEAN CORPUSCULAR HEMOGLOBIN 29.5 pg (27.0-31.0); MEAN CORPUSCULAR HGB CONC 32.6 g/dL (33.0-37.0); MEAN PLATELET VOLUME 8.1 fL (7.2-11.7); MONO % 12.3 % (0.0-10.0); NEUT # 5.4 K/uL (1.8-7.0); NEUT % 67.3 % (50.0-75.0); NRBC % 0.1 % (0.0-2.0); RBC 4.63 Mil/uL (4.40-5.90); RED CELL DISTRIBUTION WIDTH 14.3 % (11.5-14.5)
[2017-05-10 10:19] LABS: ALB/GLOB RATIO 1.3 (1.0-2.1); AST/SGOT 31 U/L (17-59); BLOOD UREA NITROGEN 35 mg/dL (9-20); GFR AFRICAN-AMERICAN 51; GFR NON-AFRICAN AMERICAN 42
[2017-05-10 10:20] LABS: ALT/SGPT 35 U/L (21-72); CALCIUM 9.3 mg/dl (8.6-10.4); HDL CHOLESTEROL 50 mg/dL (30-70)
[2017-05-10 10:23] LABS: INR 1.1
[2017-05-10 10:31] LABS: LDL CHOLESTEROL 61 mg/dL (0-129)
--- NOTE | 2017-05-10 10:49 | C.PDOC ---
History Of Present Illness 77 y/o female presents to the ED with complaints of intermittent left arm numbness/weakness x4 days, worsening since yesterday. 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 Pt denies visual changes, headache, facial droop, slurred speech, chest pain, palpitations, SOB. Patient took full strength ASA this morning prior to arrival. Time Seen by Provider: 05/10/17 09:41 Chief Complaint (Nursing): Weakness/Neurological Deficit History Per: Patient History/Exam Limitations: no limitations Onset/Duration Of Symptoms: Days Current Symptoms Are (Timing): Worse Fall Associated With With Symptoms: No Severity: Moderate - Symptoms Of CVA Character Of Deficits: Left: Weakness, Sensory Loss, Arm: Weakness, Sensory Loss Recent Head Trauma: No Past Medical History Reviewed: Historical Data, Nursing Documentation, Vital Signs Vital Signs: Last Vital Signs Temp 97.7 F 05/14/17 15:37 Pulse 69 05/14/17 15:37 Resp 20 05/14/17 15:37 BP 118/63 05/14/17 15:37 Pulse Ox 96 05/14/17 15:37 - Medical History PMH: Diabetes, HTN, Hypercholesterolemia Surgical History: CABG (2011) - [facility]ated Procedures ENDO EXCISION/DEST OF LESION OR TISSUE OF STOMACH (12/31/14) Family History: States: No Known Family Hx - Social History Hx Tobacco Use: No Hx Alcohol Use: Yes Hx Substance Use: No - Immunization History Hx Tetanus Toxoid Vaccination: No Hx Influenza Vaccination: Yes Hx Pneumococcal Vaccination: No Review Of Systems Except As Marked, All Systems Reviewed And Found Negative. Constitutional: Negative for: Fever, Chills Eyes: Negative for: Vision Change Cardiovascular: Negative for: Chest Pain, Palpitations Respiratory: Negative for: Shortness of Breath Skin: Negative for: Rash Neurological: Positive for: Weakness (left arm), Numbness (left arm). Negative for: Change in Speech (no slurred speech), Headache Physical Exam - Physical Exam Appears: Well, Non-toxic, No Acute Distress Skin: Warm, Dry, No Rash Head: Atraumatic, Normacephalic Eye(s): bilateral: Normal Inspection, PERRL, EOMI Oral Mucosa: Moist Neck: Normal, Normal ROM, Supple Chest: Symmetrical, Other (midline sternotomy scar) Cardiovascular: Rhythm Regular, No Murmur Respiratory: Normal Breath Sounds, No Rales, No Rhonchi, No Wheezing Gastrointestinal/Abdominal: Normal Exam, Bowel Sounds, Soft, No Tenderness Extremity: Normal ROM Extremity: Bilateral: Atraumatic Neurological/Psych: Oriented x3, Normal Speech, Normal Cognition, Normal Cranial Nerves, No Cerebellar Signs, No Normal Motor (LUE 3/5 strength, all other extremities 5/5), No Normal Sensation (decreased sensation to left arm and hand, all other extremities normal) ED Course And Treatment - Laboratory Results Result Diagrams: 05/10/17 10:04 05/10/17 10:04 ECG: Interpreted By Me, Viewed By Me (NSR 82 bpm, normal axis, Q waves III, aVF , no acute ST/T wave changes) ECG Interpretation: Abnormal Rate From EC (BPM) O2 Sat by Pulse Oximetry: 97 (room air) Pulse Ox Interpretation: Normal - CT Scan/US ct head Other Rad Studies (CT/US): Read By Radiologist, Radiology Report Reviewed CT/US Interpretation: Accession No. : [id number]. Patient Name / ID : MIHAELA YE / [id number]. Exam Date : 05/10/2017 10:36:13 ( Approved ). Study Comment : Sex / Age : M / [id number]. Creator : Scarlet Cherry MD. Dictator : Scarlet Cherry MD. Graphic Design Intern : Drug Abuse Counselor : Scarlet Cherry MD. Approver2 : Report Date : 05/10/2017 10:54:21. My Comment : . PROCEDURE: CT HEAD WITHOUT CONTRAST. HISTORY: left side weakness/ numbness. COMPARISON: Noncontrast head CT performed 04/13/17. TECHNIQUE: Axial computed tomography images were obtained through the head/brain without intravenous contrast. Radiation dose: Total exam DLP = 987.59 mGy-cm. This CT exam was performed using one or more of the following dose reduction techniques: Automated exposure control, adjustment of the mA and/or kV according to patient size, and/or use of iterative reconstruction technique. FINDINGS: HEMORRHAGE: No intracranial hemorrhage. BRAIN: Diffuse atrophy with prominence of the ventricles and sulci noted. 5 x 14 mm partially calcified right convexity lesion which appears within the extra-axial space within the frontal lobe. No edema. Dense intracranial atherosclerotic calcifications. Left frontal, parietal, and occipital encephalomalacia. Please note that MRI with diffusion imaging is more sensitive in the detection of acute ischemic event. VENTRICLES: No hydrocephalus. CALVARIUM: Unremarkable. PARANASAL SINUSES: Unremarkable as visualized. No significant inflammatory changes. MASTOID AIR CELLS: Unremarkable as visualized. No inflammatory changes. OTHER FINDINGS: None. IMPRESSION: 5 x 14 mm partially calcified right convexity lesion which appears within the extra-axial space within the frontal lobe. If indicated, MRI without and with IV contrast suggested for further characterization. Left frontal, parietal, and occipital encephalomalacia. Findings discussed with Dr. Mahoney on 05/10/17 at 10:53 a.m. Progress Note: Plan: Blood work, CT head, EKG ordered and reviewed. Patient given IV NS bolus. Patient refusing MRI at this time. - Physician Consult Information Physician Contacted: Marshall Madison Outcome Of Conversation: Spoke with Dr. Madison, covers Dr. Murrieta, agrees with telemetry admission for CVA - would like Dr. Hamilton for neurology. NIHSS Stroke Scale - Date/Time Evaluation Performed Date Performed: 05/10/17 Time Performed: 09:30 When Was NIHSS Performed: Baseline - How Severe is the Stoke Level of Consciousness: 0=Alert LOC to Questions: 0=Both comments correct LOC to commands: 0=Obeys both correctly Best Gaze: 0=Normal Visual: 0=No visual loss Facial: 0=Normal Motor Arm - Left: 2=Falls before 10 sec Motor Arm - Right: 0=No drift Motor Leg - Left: 0=No drift Motor Leg - Right: 0=No drift Limb Ataxia: 0=Absent Sensory: 1=Mild to moderate loss (LUE) Best Language: 0=No aphasia Dysarthia: 0=Normal articulation Extinction & Inattention (Neglect): 0=Normal, no object Score: 3 Severity Of Stroke: 1-4= Minor Stroke rTPA Inclusion/Exclusion - Refusal of Treatment Patient Refused Treatment: No - Inclusion Criteria for Altepase Patient is 18 years or Older: Yes The Clinical Diagnosis of Ischemic Stroke That is Causing a Potentially Disabling Neurological Deficit: Yes Time of Onset is Well Established to be Less Than 270 Minute Before Treatment Would Begin: No Risk/Benefit Discussed With Patient/Family Member Present: No Disposition - Disposition Disposition: HOSPITALIZED Disposition Time: 11:20 Condition: STABLE - Clinical Impression Clinical Impression: CVA (cerebral vascular accident), Right frontal lobe lesion, Left arm weakness - Scribe Statement The provider has reviewed the documentation as recorded by the Max Escobedo Provider Attestation: All medical record entries made by the Max were at my direction and personally dictated by me. I have reviewed the chart and agree that the record accurately reflects my personal performance of the history, physical exam, medical decision making, and the department course for this patient. I have also personally directed, reviewed, and agree with the discharge instructions and disposition. Decision To Admit - Pt Status Changed To: Hospital Disposition Of: Inpatient - Admit Certification Admit to Inpatient:: After my assessment, the patient will require hospitalization for at least two midnights. This is because of the severity of symptoms shown, intensity of services needed, and/or the medical risk in this patient being treated as an outpatient. - InPatient: Physician Admission Certification: I certify that this patient requires 2 or more midnights of care for the following reason:: see notes - . Bed Request Type: Telemetry Admitting Physician: Marshall Madison Patient Diagnosis: Left arm weakness, CVA (cerebral vascular accident), Right frontal lobe lesion
--- NOTE | 2017-05-10 10:56 | CT ---
PROCEDURE: CT HEAD WITHOUT CONTRAST. HISTORY: left side weakness/numbness COMPARISON: Noncontrast head CT performed 04/13/17 TECHNIQUE: Axial computed tomography images were obtained through the head/brain without intravenous contrast. Radiation dose: Total exam DLP = 987.59 mGy-cm. This CT exam was performed using one or more of the following dose reduction techniques: Automated exposure control, adjustment of the mA and/or kV according to patient size, and/or use of iterative reconstruction technique. FINDINGS: HEMORRHAGE: No intracranial hemorrhage. BRAIN: Diffuse atrophy with prominence of the ventricles and sulci noted. 5 x 14 mm partially calcified right convexity lesion which appears within the extra-axial space within the frontal lobe. No edema. Dense intracranial atherosclerotic calcifications. Left frontal, parietal, and occipital encephalomalacia. Please note that MRI with diffusion imaging is more sensitive in the detection of acute ischemic event. VENTRICLES: No hydrocephalus. CALVARIUM: Unremarkable. PARANASAL SINUSES: Unremarkable as visualized. No significant inflammatory changes. MASTOID AIR CELLS: Unremarkable as visualized. No inflammatory changes. OTHER FINDINGS: None. IMPRESSION: 5 x 14 mm partially calcified right convexity lesion which appears within the extra-axial space within the frontal lobe. If indicated, MRI without and with IV contrast suggested for further characterization. Left frontal, parietal, and occipital encephalomalacia. Findings discussed with Dr. Mahoney on 05/10/17 at 10:53 a.m.
--- NOTE | 2017-05-10 18:01 | CP.PCM.HP ---
History of Present Illness - History of Present Illness History of Present Illness: 77 y/o male presents with complaints of intermittent left arm numbness/weakness x4 days, worsening since yesterday. 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 Pt denies visual changes, headache, facial droop, slurred speech, chest pain, palpitations, SOB. Patient took 325 mg aspirin prior to coming to the hospital Present on Admission - Present on Admission Any Indicators Present on Admission: No History of DVT/PE: No History of Uncontrolled Diabetes: Yes Urinary Catheter: No Decubitus Ulcer Present: No Review of Systems - Review of Systems All systems: reviewed and no additional remarkable complaints except (As mentioned in HPI) Past Patient History - Infectious Disease Hx of Infectious Diseases: None - Past Medical History & Family History Past Medical History?: Yes - Past Social History Smoking Status: Former Smoker - CARDIAC Hx Hypercholesterolemia: Yes Hx Hypertension: Yes - PULMONARY Hx Respiratory Disorders: No - NEUROLOGICAL HX Cerebrovascular Accident: Yes - HEENT Hx HEENT Problems: No - RENAL Hx Chronic Kidney Disease: No - ENDOCRINE/METABOLIC Hx Diabetes Mellitus Type 2: Yes - HEMATOLOGICAL/ONCOLOGICAL Hx Blood Disorders: Yes Hx Blood Transfusions: Yes Hx Blood Transfusion Reaction: No - INTEGUMENTARY Hx Dermatological Problems: No - MUSCULOSKELETAL/RHEUMATOLOGICAL Hx Musculoskeletal Disorders: No Hx Falls: No - GASTROINTESTINAL Hx Gastrointestinal Disorders: Yes Hx Constipation: Yes Hx Nausea: Yes Hx Vomiting: Yes - GENITOURINARY/GYNECOLOGICAL Hx Genitourinary Disorders: No - PSYCHIATRIC Hx Substance Use: No - SURGICAL HISTORY Hx Coronary Artery Bypass Graft: Yes (2011) - ANESTHESIA Hx Anesthesia: Yes Hx Anesthesia Reactions: No Hx Malignant Hyperthermia: No Meds Allergies/Adverse Reactions: Allergies Allergy/AdvReac Type Severity Reaction Status Date / Time No Known Allergies Allergy Verified 05/10/17 09:29 Physical Exam - Head Exam Head Exam: NORMAL INSPECTION - Eye Exam Eye Exam: Normal appearance - ENT Exam ENT Exam: Mucous Membranes Moist - Respiratory Exam Respiratory Exam: Clear to Auscultation Bilateral - Cardiovascular Exam Cardiovascular Exam: REGULAR RHYTHM, +S1, +S2 - GI/Abdominal Exam GI & Abdominal Exam: Normal Bowel Sounds, Soft - Neurological Exam Neurological exam: Alert, Motor Sensory Deficit (Left forearm and fingers numbness), Oriented x3, Reflexes Normal - Skin Skin Exam: Normal Color, Warm Results - Vital Signs Recent Vital Signs: Last Vital Signs Temp 98.3 F 05/10/17 09:30 Pulse 75 05/10/17 16:33 Resp 17 05/10/17 16:33 BP 118/64 05/10/17 16:33 Pulse Ox 97 05/10/17 16:33 - Labs Result Diagrams: 05/10/17 10:04 05/10/17 10:04 Assessment & Plan - Assessment and Plan (Free Text) Assessment: Subacute CVA Hypertension Diabetes Morbid obesity Prior history of CVA Plan: Subacute CVA History of CVA Hypertension Diabetes Morbid obesity Neurology consult appreciated Needs MRI Aspirin Plavix Statins Accu-Chek Glimepiride 4 mg daily Insulin sliding scale DVT GI prophylaxis
[2017-05-10] MEDS ORDERED: DiphenhydrAMINE 50 mg/ml Inj IVP STA (18:53)
[2017-05-10] MEDS: (Novolin R) Insulin Human Regular 100 units/ml vial SC SCH (22:06)
[2017-05-11 02:43] LABS: CK-MB 2.06 ng/mL (0.0-3.38)
--- NOTE | 2017-05-11 08:25 | CP.PCM.CON ---
History of Present Illness - History of Present Illness History of Present Illness: NEURO CONSULT NOTE: 05/10/17 CHIEF COMPLAINT: LEFT ARM NUMBNESS AND WEAKNESS HPI: THIS IS A 77 YEAR OLD WOMAN WITH PMH OF HTN, HLD, CAD, CABG, TYPE 2 DM WITH LAST A1C 8.7 INDICATING POORLY CONTROLLED DM WHO PRESENTED WITH INTERMITTENT NUMBNESS AND TINGLING/WEAKNESS OF LEFT ARM FOR THE PAST [address] HEAD SHOWED ENCEPHALOMALACIA IN THE LEFT FRONTAL, PARIETAL, OCCIPITAL LOBE INDICATING OLD STROKE. PT WILL HAS MILD NECK TIGHTNESS AND WILL GO FOR MRI BRAIN TO ASSESS FOR STROKE AND C-SPINE TO ASSESS FOR ANY RADICULAR COMPONENT. ROS: 14 POINT REVIEW OF SYMPTOMS IS NEGATIVE PER HPI. ALLERGIES: NONE SOCIAL HISTORY: NO ILLICIT DRUG USE, SMOKING, OR ETOH USE. FAMILY: NON CONTRIBUTORY. MEDICATIONS: REVIEWED BY NURSE'S RECONCILIATION SHEET. PAST MEDICAL HISTORY: HTN, HLD, CAD, CABG, TYPE 2 DM WITH LAST A1C 8.7 PHYSICAL EXAM: VITAL SIGNS: REVIEWED BY THE CHART GENERAL EXAM: PATIENT SEEN IN BED, IN NO ACUTE DISTRESS HEENT: PERRLA, EOMI, NECK SUPPLE, NO JVD, NO ADENOPATHY CVS: S1, S2, RRR, NO MURMURS NOTED LUNGS: CLEAR TO AUSCULTATION, NO ADVENTITIOUS SOUNDS ABDOMEN: SOFT AND NONTENDER EXTREMITIES: NO CLUBBING OR CYANOSIS. PP 2+ B/L NEURO: PT IS ALERT AND ORIENTED TO PERSON, PLACE, AND YEAR. , RECALL TO 5 MINUTES 3/3, SPEECH IS FLUENT WITHOUT ERRORS, CN II-XII INTACT, MOTOR EXAM: NORMAL TONE, NORMAL BULK OF MUSCLE, MOVES ALL EXTREMITIES EQUALLY, NO PRONATOR DRIFT SEEN. SENSORY EXAM: DECREASED LIGHT TOUCH, PIN PRICK UP TO CALVES B/L, INTACT PROPRIOCEPTION , DECREASED VIBRATION AT TOES AND KNEES DEEP TENDON REFLEXES: 2+ THROUGHOUT AND 1 AT THE ANKLES AND KNEES. COORDINATION: FINGER TO NOSE IS INTACT. HEEL TO STEVE IS INTACT GAIT: DEFERRED. LABS: REVIEWED BY THE CHART. ASSESSMENT AND PLAN: THIS IS A 77 YEAR OLD WOMAN WITH PMH OF HTN, HLD, CAD, CABG, TYPE 2 DM WITH LAST A1C 8.7 INDICATING POORLY CONTROLLED DM WHO PRESENTED WITH INTERMITTENT NUMBNESS AND TINGLING/WEAKNESS OF LEFT ARM FOR THE PAST [address] HEAD SHOWED ENCEPHALOMALACIA IN THE LEFT FRONTAL, PARIETAL, OCCIPITAL LOBE INDICATING OLD STROKE. PT HAS MILD NECK TIGHTNESS AND WILL GO FOR MRI BRAIN TO ASSESS FOR STROKE AND C-SPINE TO ASSESS FOR ANY RADICULAR COMPONENT. IMPRESSION: LEFT ARM PARASTHESIAS AND WEAKNESS COULD BE SECONDARY TO LACUNAR INFARCT GIVEN RISK FACTORS VS HTN/HYPERGLYCEMIA VS CERVICAL. 1. ASA 81 MG, PLAVIX 75MG AND CRESTOR 10MG FOR STROKE PREVENTION 2. MONITOR ELECTROLYTES AND CORRECT ACCORDINGLY. HYDRATE. 3. MRI OF BRAIN TO ASSESS FOR STROKE 4. MRI C-SPINE TO ASSESS FOR RADICULAR COMPONET. 5. KEEP BLOOD SUGAR BETWEEN 140-180. DIABETIC EDUCATION INSISTED. 6. PT EVAL THANK YOU. Julio ARANDA MD Past Patient History - Infectious Disease Hx of Infectious Diseases: None - Past Medical History & Family History Past Medical History?: Yes - Past Social History Smoking Status: Former Smoker - CARDIAC Hx Hypercholesterolemia: Yes Hx Hypertension: Yes - PULMONARY Hx Respiratory Disorders: No - NEUROLOGICAL HX Cerebrovascular Accident: Yes - HEENT Hx HEENT Problems: No - RENAL Hx Chronic Kidney Disease: No - ENDOCRINE/METABOLIC Hx Diabetes Mellitus Type 2: Yes - HEMATOLOGICAL/ONCOLOGICAL Hx Blood Disorders: Yes Hx Blood Transfusions: Yes Hx Blood Transfusion Reaction: No - INTEGUMENTARY Hx Dermatological Problems: No - MUSCULOSKELETAL/RHEUMATOLOGICAL Hx Musculoskeletal Disorders: No Hx Falls: No - GASTROINTESTINAL Hx Gastrointestinal Disorders: Yes Hx Constipation: Yes Hx Nausea: Yes Hx Vomiting: Yes - GENITOURINARY/GYNECOLOGICAL Hx Genitourinary Disorders: No - PSYCHIATRIC Hx Substance Use: No - SURGICAL HISTORY Hx Coronary Artery Bypass Graft: Yes (2011) - ANESTHESIA Hx Anesthesia: Yes Hx Anesthesia Reactions: No Hx Malignant Hyperthermia: No Meds Allergies/Adverse Reactions: Allergies Allergy/AdvReac Type Severity Reaction Status Date / Time No Known Allergies Allergy Verified 05/10/17 09:29 Results - Vital Signs Recent Vital Signs: Last Vital Signs Temp 98.3 F 05/10/17 09:30 Pulse 75 05/10/17 16:33 Resp 17 05/10/17 16:33 BP 118/64 05/10/17 16:33 Pulse Ox 97 05/10/17 16:33 - Labs Result Diagrams: 05/10/17 10:04 05/10/17 10:04
[2017-05-11] MEDS: (Novolin R) Insulin Human Regular 100 units/ml vial SC SCH ×4 (08:30→22:42)
--- NOTE | 2017-05-11 12:27 | CP.PCM.CON ---
History of Present Illness - History of Present Illness History of Present Illness: Consult Note for Dr. Sainz Reason for Consult: Chest pain 77 y/o F with PMH of HTN, CAD, CABG, HLD, and NIDDM presents to the ED initially on 05/10/17 for left arm numbness and weakness. Pt states he had these symptoms intermittently for the past 4 days. Pt states there was no pain associated with symptoms. He states that he is compliant with all his medication. Pt denies any recent trauma to the his neck or arm. Pt is currently being seen by neurology who is working him up for his left arm and weakness. Brain MRI has been ordered. Pt states he had intermittent chest pain on arrival to the ED. Pain is nonradiating and located substernally. Pt states he gets out of breath after walking short distances. He states he had a stress test 2 years ago and it was normal. Pt does have a hx of CABG. Troponins have been negative x 2. Currently, pt does not have CP. Denies CP, SOB, N/V/D, fevers, chills, syncope, dysuria. PMH: HTN, CAD, CABG, HLD, and NIDDM Surgical Hx: CABG Social HX: Former smoker, 1 ppd x 10 years, 30 years ago. Denies alcohol or illicit drug use Medication: See MAR Allergies: NKDA Review of Systems - Constitutional Constitutional: Weakness. absent: Fatigue, Fever - EENT Eyes: absent: Blurred Vision, Change in Vision - Cardiovascular Cardiovascular: Chest Pain. absent: Irregular Heart Rhythm - Respiratory Respiratory: absent: Cough, Dyspnea - Gastrointestinal Gastrointestinal: absent: Abdominal Pain, Diarrhea, Vomiting - Genitourinary Genitourinary: absent: Dysuria, Hematuria - Musculoskeletal Musculoskeletal: Muscle Weakness, Numbness - Integumentary Integumentary: absent: Changing Lesions, New Lesions - Neurological Neurological: Numbness, Tingling. absent: Syncope Past Patient History - Infectious Disease Hx of Infectious Diseases: None - Past Medical History & Family History Past Medical History?: Yes - Past Social History Smoking Status: Former Smoker - CARDIAC Hx Hypercholesterolemia: Yes Hx Hypertension: Yes - PULMONARY Hx Respiratory Disorders: No - NEUROLOGICAL HX Cerebrovascular Accident: Yes - HEENT Hx HEENT Problems: No - RENAL Hx Chronic Kidney Disease: No - ENDOCRINE/METABOLIC Hx Diabetes Mellitus Type 2: Yes - HEMATOLOGICAL/ONCOLOGICAL Hx Blood Disorders: Yes Hx Blood Transfusions: Yes Hx Blood Transfusion Reaction: No - INTEGUMENTARY Hx Dermatological Problems: No - MUSCULOSKELETAL/RHEUMATOLOGICAL Hx Musculoskeletal Disorders: No Hx Falls: No - GASTROINTESTINAL Hx Gastrointestinal Disorders: Yes Hx Constipation: Yes Hx Nausea: Yes Hx Vomiting: Yes - GENITOURINARY/GYNECOLOGICAL Hx Genitourinary Disorders: No - PSYCHIATRIC Hx Substance Use: No - SURGICAL HISTORY Hx Coronary Artery Bypass Graft: Yes (2011) - ANESTHESIA Hx Anesthesia: Yes Hx Anesthesia Reactions: No Hx Malignant Hyperthermia: No Meds Allergies/Adverse Reactions: Allergies Allergy/AdvReac Type Severity Reaction Status Date / Time No Known Allergies Allergy Verified 05/10/17 09:29 - Medications Medications: Current Medications Acetaminophen (Tylenol 325mg Tab) 650 mg PO Q6 PRN PRN Reason: Fever >100.4 F Last Admin: 05/10/17 18:58 Dose: 650 mg Aspirin (Aspirin Chewable) 81 mg PO DAILY [facility] Last Admin: 05/11/17 10:01 Dose: 81 mg Clopidogrel Bisulfate (Plavix) 75 mg PO DAILY [facility] Last Admin: 05/11/17 10:01 Dose: 75 mg Glimepiride (Amaryl) 4 mg PO DAILY [facility] Last Admin: 05/11/17 10:00 Dose: 4 mg Insulin Human Regular (Novolin R) 0 unit SC ACHS [facility] PRN Reason: Protocol Last Admin: 05/11/17 08:30 Dose: 2 unit Metoprolol Tartrate (Lopressor) 25 mg PO Q12 [facility] Last Admin: 05/11/17 10:00 Dose: 25 mg Rosuvastatin Calcium (Crestor) 10 mg PO HS [facility] Last Admin: 05/10/17 21:20 Dose: 10 mg Tramadol HCl (Ultram) 50 mg PO Q8H PRN PRN Reason: Pain, moderate (4-7) Physical Exam - Constitutional Appears: Non-toxic, No Acute Distress - Head Exam Head Exam: ATRAUMATIC, NORMAL INSPECTION, NORMOCEPHALIC - Respiratory Exam Respiratory Exam: Clear to Auscultation Bilateral, NORMAL BREATHING PATTERN - Cardiovascular Exam Cardiovascular Exam: RRR, +S1, +S2 - GI/Abdominal Exam GI & Abdominal Exam: Normal Bowel Sounds, Soft. absent: Tenderness - Extremities Exam Extremities exam: Negative for: calf tenderness, pedal edema - Neurological Exam Neurological exam: Alert, Oriented x3 - Skin Skin Exam: Intact, Normal Color, Warm Results - Vital Signs Recent Vital Signs: Last Vital Signs Temp 98 F 05/11/17 07:00 Pulse 80 05/11/17 07:00 Resp 20 05/11/17 07:00 BP 158/78 H 05/11/17 10:00 Pulse Ox 95 05/11/17 07:00 - Labs Result Diagrams: 05/10/17 10:04 05/10/17 10:04 Labs: Laboratory Results - last 24 hr 05/10/17 05/11/17 05/11/17 21:37 01:50 06:47 POC Glucose (mg/dL) 253 H 177 H Total Creatine Kinase 72 CK-MB (Mass) 2.06 Troponin I Troponin I, Quant < 0.0120 05/11/17 09:23 POC Glucose (mg/dL) Total Creatine Kinase CK-MB (Mass) Troponin I < 0.0120 Troponin I, Quant Assessment & Plan (1) Chest pain Assessment and Plan: Troponins negative x 2. EKG shows NSR Echocardiogram ordered Exercise stress test ordered Continue current medical regimen Status: Acute
--- NOTE | 2017-05-11 13:45 | CP.PCM.PN ---
Subjective - Date & Time of Evaluation Date of Evaluation: 05/11/17 Time of Evaluation: 13:34 Objective - Vital Signs/Intake and Output Vital Signs (last 24 hours): Temp Pulse Resp BP Pulse Ox 98 F 80 20 158/78 H 95 05/11/17 07:00 05/11/17 07:00 05/11/17 07:00 05/11/17 10:00 05/11/17 07:00 Intake and Output: 05/11/17 05/11/17 06:59 18:59 Output Total 300 Balance -300 - Medications Medications: Current Medications Acetaminophen (Tylenol 325mg Tab) 650 mg PO Q6 PRN PRN Reason: Fever >100.4 F Last Admin: 05/10/17 18:58 Dose: 650 mg Aspirin (Aspirin Chewable) 81 mg PO DAILY [facility] Last Admin: 05/11/17 10:01 Dose: 81 mg Clopidogrel Bisulfate (Plavix) 75 mg PO DAILY [facility] Last Admin: 05/11/17 10:01 Dose: 75 mg Glimepiride (Amaryl) 4 mg PO DAILY [facility] Last Admin: 05/11/17 10:00 Dose: 4 mg Insulin Human Regular (Novolin R) 0 unit SC ACHS [facility] PRN Reason: Protocol Last Admin: 05/11/17 12:35 Dose: 3 unit Metoprolol Tartrate (Lopressor) 25 mg PO Q12 [facility] Last Admin: 05/11/17 10:00 Dose: 25 mg Rosuvastatin Calcium (Crestor) 10 mg PO HS [facility] Last Admin: 05/10/17 21:20 Dose: 10 mg Tramadol HCl (Ultram) 50 mg PO Q8H PRN PRN Reason: Pain, moderate (4-7) - Labs Labs: PT 12.0 SECONDS (9.7-12.2) 05/10/17 10:04 INR 1.1 05/10/17 10:04 APTT 72 SECONDS (21-34) H 05/10/17 10:04 Assessment and Plan (1) Chest pain Status: Acute
--- NOTE | 2017-05-11 16:45 | CP.PCM.PCO ---
Physician Communication Note - Physician Communication Note Physician Communication Note: MRI PENDING C/W ASPIRIN AND PLAVIX FOR STROKE.
--- NOTE | 2017-05-11 17:39 | CP.PCM.PN ---
Subjective - Date & Time of Evaluation Date of Evaluation: 05/11/17 Time of Evaluation: 17:39 Objective - Vital Signs/Intake and Output Vital Signs (last 24 hours): Temp Pulse Resp BP Pulse Ox 98.1 F 68 20 134/65 96 05/11/17 16:00 05/11/17 16:00 05/11/17 16:00 05/11/17 16:00 05/11/17 16:00 Intake and Output: 05/11/17 05/11/17 06:59 18:59 Intake Total 550 Output Total 300 300 Balance -300 250 - Medications Medications: Current Medications Acetaminophen (Tylenol 325mg Tab) 650 mg PO Q6 PRN PRN Reason: Fever >100.4 F Last Admin: 05/10/17 18:58 Dose: 650 mg Aspirin (Aspirin Chewable) 81 mg PO DAILY [facility] Last Admin: 05/11/17 10:01 Dose: 81 mg Clopidogrel Bisulfate (Plavix) 75 mg PO DAILY [facility] Last Admin: 05/11/17 10:01 Dose: 75 mg Glimepiride (Amaryl) 4 mg PO DAILY [facility] Last Admin: 05/11/17 10:00 Dose: 4 mg Insulin Human Regular (Novolin R) 0 unit SC ACHS [facility] PRN Reason: Protocol Last Admin: 05/11/17 12:35 Dose: 3 unit Metoprolol Tartrate (Lopressor) 25 mg PO Q12 [facility] Last Admin: 05/11/17 10:00 Dose: 25 mg Rosuvastatin Calcium (Crestor) 10 mg PO HS [facility] Last Admin: 05/10/17 21:20 Dose: 10 mg Tramadol HCl (Ultram) 50 mg PO Q8H PRN PRN Reason: Pain, moderate (4-7) - Labs Labs: PT 12.0 SECONDS (9.7-12.2) 05/10/17 10:04 INR 1.1 05/10/17 10:04 APTT 72 SECONDS (21-34) H 05/10/17 10:04
[2017-05-11] MEDS ORDERED: DiphenhydrAMINE 50 mg/ml Inj IVP PRN (20:41)
[2017-05-12 02:14] LABS: CK-MB 1.38 ng/mL (0.0-3.38)
--- NOTE | 2017-05-12 06:59 | CP.PCM.PN ---
Subjective - Date & Time of Evaluation Date of Evaluation: 05/12/17 Time of Evaluation: 06:58 Objective - Vital Signs/Intake and Output Vital Signs (last 24 hours): Temp Pulse Resp BP Pulse Ox 97.7 F 83 20 132/67 98 05/12/17 01:40 05/12/17 04:18 05/12/17 01:40 05/12/17 01:40 05/12/17 01:40 Intake and Output: 05/11/17 05/12/17 18:59 06:59 Intake Total 550 Output Total 300 Balance 250 - Medications Medications: Current Medications Acetaminophen (Tylenol 325mg Tab) 650 mg PO Q6 PRN PRN Reason: Fever >100.4 F Last Admin: 05/10/17 18:58 Dose: 650 mg Aspirin (Aspirin Chewable) 81 mg PO DAILY [facility] Last Admin: 05/11/17 10:01 Dose: 81 mg Clopidogrel Bisulfate (Plavix) 75 mg PO DAILY [facility] Last Admin: 05/11/17 10:01 Dose: 75 mg Diphenhydramine HCl (Benadryl) 25 mg IVP DAILY PRN PRN Reason: Give prior to MRI Glimepiride (Amaryl) 4 mg PO DAILY [facility] Last Admin: 05/11/17 10:00 Dose: 4 mg Insulin Human Regular (Novolin R) 0 unit SC ACHS [facility] PRN Reason: Protocol Last Admin: 05/11/17 22:42 Dose: Not Given Metoprolol Tartrate (Lopressor) 25 mg PO Q12 [facility] Last Admin: 05/11/17 22:41 Dose: 25 mg Rosuvastatin Calcium (Crestor) 10 mg PO HS [facility] Last Admin: 05/11/17 22:40 Dose: 10 mg Tramadol HCl (Ultram) 50 mg PO Q8H PRN PRN Reason: Pain, moderate (4-7) - Labs Labs: PT 12.0 SECONDS (9.7-12.2) 05/10/17 10:04 INR 1.1 05/10/17 10:04 APTT 72 SECONDS (21-34) H 05/10/17 10:04
[2017-05-12] MEDS: (Novolin R) Insulin Human Regular 100 units/ml vial SC SCH ×3 (07:36→22:00)
--- NOTE | 2017-05-12 12:41 | MRI ---
PROCEDURE: MRI BRAIN WITHOUT CONTRAST HISTORY: LUE weakness COMPARISON: Noncontrast head CT from 05/10/2017 TECHNIQUE: Multiplanar, multisequence MR images of the brain were obtained without intravenous contrast enhancement. FINDINGS: HEMORRHAGE: None DWI: There are several discrete areas of restricted diffusion in the right high parietal cortex, right posterior insular cortex and right periatrial white matter. BRAIN PARENCHYMA: There is cystic encephalomalacia and gliosis in the left frontal, temporal and parietal lobes with volume loss and ex vacuo dilatation of the left lateral ventricle. There are moderate chronic microangiopathic changes. There are old infarctions in the left cerebellar hemisphere the midline sagittal structures are normal. VENTRICLES: There is moderate age-related global parenchymal volume loss and proportionate enlargement of the ventricles and cortical sulci. CRANIUM: There is normal bone marrow signal pattern. ORBITS: Grossly unremarkable. PARANASAL SINUSES/MASTOIDS: Predominantly clear. VASCULAR SYSTEM: There are normal signal voids in the larger intracranial arteries. OTHER FINDINGS: None. IMPRESSION: 1. Scattered acute infarctions in the right MCA territory involving the parietal lobe as described above. 2. Cystic encephalomalacia and gliosis in the left MCA territory involving the frontal, parietal and temporal lobes. Old infarction in the left cerebellar hemisphere. 3. Mild chronic microangiopathic changes and moderate age-related global parenchymal volume loss. Important findings were discussed with nurse Houston on 05/12/2017 at 12:35 p.m.
--- NOTE | 2017-05-13 06:09 | CP.PCM.PN ---
Subjective - Date & Time of Evaluation Date of Evaluation: 05/13/17 Time of Evaluation: 06:09 Objective - Vital Signs/Intake and Output Vital Signs (last 24 hours): Temp Pulse Resp BP Pulse Ox 98 F 73 20 169/81 H 98 05/13/17 04:45 05/13/17 04:45 05/13/17 04:45 05/13/17 04:45 05/12/17 23:45 - Medications Medications: Current Medications Acetaminophen (Tylenol 325mg Tab) 650 mg PO Q6 PRN PRN Reason: Fever >100.4 F Last Admin: 05/10/17 18:58 Dose: 650 mg Aspirin (Aspirin Chewable) 81 mg PO DAILY [facility] Last Admin: 05/12/17 09:17 Dose: 81 mg Clopidogrel Bisulfate (Plavix) 75 mg PO DAILY [facility] Last Admin: 05/12/17 09:17 Dose: 75 mg Diphenhydramine HCl (Benadryl) 25 mg IVP DAILY PRN PRN Reason: Give prior to MRI Last Admin: 05/12/17 10:28 Dose: 25 mg Glimepiride (Amaryl) 4 mg PO DAILY [facility] Last Admin: 05/12/17 09:17 Dose: 4 mg Insulin Human Regular (Novolin R) 0 unit SC ACHS [facility] PRN Reason: Protocol Last Admin: 05/12/17 22:00 Dose: Not Given Metoprolol Tartrate (Lopressor) 25 mg PO Q12 [facility] Last Admin: 05/12/17 22:02 Dose: 25 mg Rosuvastatin Calcium (Crestor) 10 mg PO HS [facility] Last Admin: 05/12/17 22:03 Dose: 10 mg Tramadol HCl (Ultram) 50 mg PO Q8H PRN PRN Reason: Pain, moderate (4-7) - Labs Labs: PT 12.0 SECONDS (9.7-12.2) 05/10/17 10:04 INR 1.1 05/10/17 10:04 APTT 72 SECONDS (21-34) H 05/10/17 10:04
[2017-05-13] MEDS: (Novolin R) Insulin Human Regular 100 units/ml vial SC SCH ×4 (09:40→21:52)
--- NOTE | 2017-05-13 13:35 | CP.PCM.PN ---
Subjective - Date & Time of Evaluation Date of Evaluation: 05/13/17 Objective - Vital Signs/Intake and Output Vital Signs (last 24 hours): Temp Pulse Resp BP Pulse Ox 98.1 F 74 20 129/76 94 L 05/13/17 08:57 05/13/17 08:57 05/13/17 08:57 05/13/17 10:17 05/13/17 08:57 - Medications Medications: Current Medications Acetaminophen (Tylenol 325mg Tab) 650 mg PO Q6 PRN PRN Reason: Fever >100.4 F Last Admin: 05/10/17 18:58 Dose: 650 mg Aspirin (Aspirin Chewable) 81 mg PO DAILY [facility] Last Admin: 05/13/17 10:17 Dose: 81 mg Clopidogrel Bisulfate (Plavix) 75 mg PO DAILY [facility] Last Admin: 05/13/17 13:33 Dose: 75 mg Diphenhydramine HCl (Benadryl) 25 mg IVP DAILY PRN PRN Reason: Give prior to MRI Last Admin: 05/12/17 10:28 Dose: 25 mg Glimepiride (Amaryl) 4 mg PO DAILY [facility] Last Admin: 05/13/17 10:17 Dose: 4 mg Insulin Human Regular (Novolin R) 0 unit SC ACHS [facility] PRN Reason: Protocol Last Admin: 05/13/17 12:43 Dose: 3 unit Metoprolol Tartrate (Lopressor) 25 mg PO Q12 [facility] Last Admin: 05/13/17 10:17 Dose: 25 mg Rosuvastatin Calcium (Crestor) 10 mg PO HS [facility] Last Admin: 05/12/17 22:03 Dose: 10 mg Tramadol HCl (Ultram) 50 mg PO Q8H PRN PRN Reason: Pain, moderate (4-7) - Labs Labs: PT 12.0 SECONDS (9.7-12.2) 05/10/17 10:04 INR 1.1 05/10/17 10:04 APTT 72 SECONDS (21-34) H 05/10/17 10:04
[2017-05-13] MEDS ORDERED: guaiFENesin 200 mg/10 ml Syrup UD PO PRN (14:24)
[2017-05-13] MEDS: guaiFENesin 200 mg/10 ml Syrup UD PO PRN (17:11)
--- NOTE | 2017-05-13 18:09 | CP.PCM.CON ---
History of Present Illness - History of Present Illness History of Present Illness: REC EPISODES OF LEFT HAND NUMBNESS WITH FINGER FLEXION AND LEFT FOOT SPAM AND ALSO ASSOCIATED WITH SPEECH IMPAIRMENT FOR THE LAST 3 DAYS. LAST ONE TODAY THIS AFTERNOON LASTED FOR 10 MINUTES NO LOC OCCASIONAL DOUBLE VISION Past Patient History - Infectious Disease Hx of Infectious Diseases: None - Past Medical History & Family History Past Medical History?: Yes - Past Social History Smoking Status: Former Smoker - CARDIAC Hx Hypercholesterolemia: Yes Hx Hypertension: Yes - PULMONARY Hx Respiratory Disorders: No - NEUROLOGICAL HX Cerebrovascular Accident: Yes - HEENT Hx HEENT Problems: No - RENAL Hx Chronic Kidney Disease: No - ENDOCRINE/METABOLIC Hx Diabetes Mellitus Type 2: Yes - HEMATOLOGICAL/ONCOLOGICAL Hx Blood Disorders: Yes Hx Blood Transfusions: Yes Hx Blood Transfusion Reaction: No - INTEGUMENTARY Hx Dermatological Problems: No - MUSCULOSKELETAL/RHEUMATOLOGICAL Hx Musculoskeletal Disorders: No Hx Falls: No - GASTROINTESTINAL Hx Gastrointestinal Disorders: Yes Hx Constipation: Yes Hx Nausea: Yes Hx Vomiting: Yes - GENITOURINARY/GYNECOLOGICAL Hx Genitourinary Disorders: No - PSYCHIATRIC Hx Substance Use: No - SURGICAL HISTORY Hx Coronary Artery Bypass Graft: Yes (2011) - ANESTHESIA Hx Anesthesia: Yes Hx Anesthesia Reactions: No Hx Malignant Hyperthermia: No Meds Allergies/Adverse Reactions: Allergies Allergy/AdvReac Type Severity Reaction Status Date / Time No Known Allergies Allergy Verified 05/10/17 09:29 - Medications Medications: Current Medications Acetaminophen (Tylenol 325mg Tab) 650 mg PO Q6 PRN PRN Reason: Fever >100.4 F Last Admin: 05/10/17 18:58 Dose: 650 mg Clopidogrel Bisulfate (Plavix) 75 mg PO DAILY [facility] Last Admin: 05/13/17 13:33 Dose: 75 mg Diphenhydramine HCl (Benadryl) 25 mg IVP DAILY PRN PRN Reason: Give prior to MRI Last Admin: 05/12/17 10:28 Dose: 25 mg Dipyridamole/Aspirin (Aggrenox 25-200 Mg) 1 ea PO BID [facility] Glimepiride (Amaryl) 4 mg PO DAILY [facility] Last Admin: 05/13/17 10:17 Dose: 4 mg Guaifenesin (Robitussin) 200 mg PO Q6 PRN PRN Reason: Cough and congestion Last Admin: 05/13/17 17:11 Dose: 200 mg Insulin Human Regular (Novolin R) 0 unit SC [facility] PRN Reason: Protocol Last Admin: 05/13/17 12:43 Dose: 3 unit Metoprolol Tartrate (Lopressor) 25 mg PO Q12 [facility] Last Admin: 05/13/17 10:17 Dose: 25 mg Rosuvastatin Calcium (Crestor) 10 mg PO HS [facility] Last Admin: 05/12/17 22:03 Dose: 10 mg Physical Exam - Neck Exam Neck exam: Positive for: Normal Inspection - Expanded Neurological Exam Expanded Patient oriented to: person, place, time Speech: Garbled Speech Cranial nerves: EOM's Intact: Abnormal Left, Abnormal Right (DECREASED), Facial Sensation: Normal, Gag Reflex: Normal, Nystagmus: Normal, Tongue Deviation: Normal Ataxia: No Cerebellar Function: Finger to Nose: Abnormal Left Upper motor neuron: Babinski Sign: Abnormal Left, Abnormal Right, Pronator Drift : Normal, Sensory Extinction: Normal Sensory exam: Lower Extremity Light Touch: Abnormal Left, Abnormal Right, Lower Extremity Pin Prick: Abnormal Left, Abnormal Right (neuropathy) Neuro motor strength exam: Left Upper Extremity: 5, Right Upper Extremity: 5, Left Lower Extremity: 5, Right Lower Extremity: 5 DTR: Achilles Tendon Left: 0, Achilles Tendon Right: 0, Bicep Left: 0, Bicep Right: 0, Brachioradialis Left: 0, Brachioradialis Right: 0, Patellar Left: 0, Patellar Right: 0, Tricep Left: 0, Tricep Right: 0 Results - Vital Signs Recent Vital Signs: Last Vital Signs Temp 97.9 F 05/13/17 15:33 Pulse 77 05/13/17 15:33 Resp 20 05/13/17 15:33 BP 125/75 05/13/17 15:33 Pulse Ox 96 05/13/17 15:33 - Labs Result Diagrams: 05/10/17 10:04 05/10/17 10:04 Labs: Laboratory Results - last 24 hr 05/12/17 05/12/17 05/13/17 16:21 21:03 06:16 POC Glucose (mg/dL) 208 H 194 H 206 H 05/13/17 05/13/17 11:37 16:35 POC Glucose (mg/dL) 231 H 188 H - Imaging and Cardiology MRI - head Status: Image reviewed by me (left mca encephalomalacia and new scattered acute ischemic process in right mca teritary ) Assessment & Plan (1) Stroke (cerebrum) Status: Acute Priority: High - Assessment and Plan (Free Text) Plan: ASA FAILURE SWITCH TO AGGRENOX WITH PLAVIX BP CONTROL DM AND WEIGHT CONTROL CHECK CAROTID /EEG AND ALE NEEDS PSG FOR EFRAIN/CSA OR [facility] EMG AND NCV AN OP - Date & Time Date: 05/13/17 Time: 18:14
[2017-05-13] MEDS ORDERED: Aspirin-Dipyridamole 200-25 mg ER Cap PO SCH (20:45)
[2017-05-13 21:18] LABS: PROLACTIN 24.6 ng/mL (3.7-17.9)
[2017-05-13 21:57] LABS: FREE T4 1.06 ng/dL (0.78-2.19)
--- NOTE | 2017-05-14 07:23 | CP.PCM.PN ---
Subjective - Date & Time of Evaluation Date of Evaluation: 05/14/17 Time of Evaluation: 07:05 - Subjective Subjective: HAD 2 NEW EPISODE OF LEFT HAND SPASM NOT ASSOCIATING WITH SPEECH IMPAIRMENT NO HEADACHE NO NEW NEURO DEFICIT PLAN TOLERATING AGGRENOX DISCUSSED WITH NURSE TO WITNESS THE EVENT IF ANY NEW EPISODES NEEDS ALE AND CARDIO TO FOLLOW Objective - Vital Signs/Intake and Output Vital Signs (last 24 hours): Temp Pulse Resp BP Pulse Ox 98.2 F 66 18 146/73 95 05/14/17 00:00 05/14/17 04:13 05/14/17 00:00 05/14/17 00:00 05/14/17 00:00 - Medications Medications: Current Medications Acetaminophen (Tylenol 325mg Tab) 650 mg PO Q6 PRN PRN Reason: Fever >100.4 F Last Admin: 05/10/17 18:58 Dose: 650 mg Clopidogrel Bisulfate (Plavix) 75 mg PO DAILY [facility] Last Admin: 05/13/17 13:33 Dose: 75 mg Diphenhydramine HCl (Benadryl) 25 mg IVP DAILY PRN PRN Reason: Give prior to MRI Last Admin: 05/12/17 10:28 Dose: 25 mg Dipyridamole/Aspirin (Aggrenox 25-200 Mg) 1 ea PO BID [facility] Dipyridamole/Aspirin (Aggrenox 25-200 Mg) 1 ea PO BID [facility] Last Admin: 05/13/17 22:13 Dose: 1 ea Glimepiride (Amaryl) 4 mg PO DAILY [facility] Last Admin: 05/13/17 10:17 Dose: 4 mg Guaifenesin (Robitussin) 200 mg PO Q6 PRN PRN Reason: Cough and congestion Last Admin: 05/13/17 17:11 Dose: 200 mg Insulin Human Regular (Novolin R) 0 unit SC ACHS [facility] PRN Reason: Protocol Last Admin: 05/13/17 21:52 Dose: Not Given Metoprolol Tartrate (Lopressor) 25 mg PO Q12 [facility] Last Admin: 05/13/17 22:14 Dose: 25 mg Rosuvastatin Calcium (Crestor) 10 mg PO HS [facility] Last Admin: 05/13/17 22:13 Dose: 10 mg - Labs Labs: PT 12.0 SECONDS (9.7-12.2) 05/10/17 10:04 INR 1.1 05/10/17 10:04 APTT 72 SECONDS (21-34) H 05/10/17 10:04 Assessment and Plan (1) Stroke (cerebrum) Status: Acute
[2017-05-14] MEDS: (Novolin R) Insulin Human Regular 100 units/ml vial SC SCH ×4 (08:10→21:21)
[2017-05-14] MEDS: guaiFENesin 200 mg/10 ml Syrup UD PO PRN (09:41)
[2017-05-14] MEDS: Aspirin-Dipyridamole 200-25 mg ER Cap PO SCH ×2 (09:44→17:57)
--- NOTE | 2017-05-14 10:55 | VASCLAB ---
PROCEDURE: HISTORY: STENOSIS COMPARISON: Last exam 06/29/2009,normal TECHNIQUE: Grayscale and duplex Doppler evaluation of the cervical carotid and vertebral arteries were performed. The common carotid, carotid bifurcations and cervical Internal Carotid Artery (ICA) and proximal External Carotid Artery (ECA) were evaluated. The vertebral arteries were evaluated for gross patency and flow direction. Report prepared by VALERIA Santizo FINDINGS: RIGHT CAROTID ARTERIES: 1. Common Carotid Artery: No significant focal plaque formation of the right common carotid artery. Maximum Peak Systolic velocity: 99 cm/sec: End-diastolic velocity 14 cm/sec. 2. Carotid Bifurcation: Calcific plaque formation. Maximum Peak Systolic velocity: 49 cm/sec: End-diastolic velocity 7 cm/sec. 3. Internal Carotid Artery: Plaque description: Calcific 3.1. Proximal Segment: Peak systolic velocity 88 cm/sec: End-diastolic velocity 16 cm/sec - % stenosis 0-15% 3.2. Middle Segment: Peak systolic velocity 121 cm/sec: End-diastolic velocity 33 cm/sec - % stenosis 0-15% 3.3. Distal Segment: Peak systolic velocity 70 cm/sec: End-diastolic velocity 14 cm/sec - % stenosis 0-15% 4. External Carotid Artery: Calcific plaque formation. Peak systolic velocity 133 cm/sec 5. ICA/CCA Ratio: 1.7 LEFT CAROTID ARTERIES: 1. Common Carotid Artery: No significant focal plaque formation of the left common carotid artery. Maximum Peak Systolic velocity: 88 cm/sec: End-diastolic velocity 13 cm/sec. 2. Carotid Bifurcation: Calcific plaque formation. Maximum Peak Systolic velocity: 51 cm/sec: End-diastolic velocity 10 cm/sec. 3. Internal Carotid Artery: Plaque description: Calcific 3.1. Proximal Segment: Peak systolic velocity 81 cm/sec: End-diastolic velocity 24 cm/sec - % stenosis 0-15% 3.2. Middle Segment: Peak systolic velocity 81 cm/sec: End-diastolic velocity 20 cm/sec - % stenosis 0-15% 3.3. Distal Segment: Peak systolic velocity 98 cm/sec: End-diastolic velocity 24 cm/sec - % stenosis 0-15% 4. External Carotid Artery: Calcific plaque formation. Peak systolic velocity 169 cm/sec 5. ICA/CCA Ratio: 1.3 VERTEBRAL ARTERIES: 1. Right Vertebral Artery: The right vertebral artery flow direction is antegrade. 2. Left Vertebral Artery: The left vertebral artery flow direction is antegrade. OTHER FINDINGS: 1. Right Brachial Blood pressure: 150 mmHg. 2. Left Brachial Blood pressure: 160 mmHg. IMPRESSION: RIGHT: Duplex scan does not suggest hemodynamically significant stenosis of the right extracranial carotid arteries. LEFT: Duplex scan does not suggest hemodynamically significant stenosis of the left extracranial carotid arteries. Increased velocity noted of the left ECA of 169cm/s.
--- NOTE | 2017-05-14 11:12 | CP.PCM.PCO ---
Physician Communication Note - Physician Communication Note Physician Communication Note: mri brain reviewed. aggrenox/plavix. Dr hermosillo will be follwoing.
--- NOTE | 2017-05-14 13:00 | CP.PCM.PN ---
Subjective - Date & Time of Evaluation Date of Evaluation: 05/14/17 Time of Evaluation: 13:00 Objective - Vital Signs/Intake and Output Vital Signs (last 24 hours): Temp Pulse Resp BP Pulse Ox 98.1 F 74 18 148/74 95 05/14/17 07:45 05/14/17 07:45 05/14/17 07:45 05/14/17 09:41 05/14/17 07:45 - Medications Medications: Current Medications Acetaminophen (Tylenol 325mg Tab) 650 mg PO Q6 PRN PRN Reason: Fever >100.4 F Last Admin: 05/10/17 18:58 Dose: 650 mg Clopidogrel Bisulfate (Plavix) 75 mg PO DAILY [facility] Last Admin: 05/14/17 09:41 Dose: 75 mg Diphenhydramine HCl (Benadryl) 25 mg IVP DAILY PRN PRN Reason: Give prior to MRI Last Admin: 05/12/17 10:28 Dose: 25 mg Dipyridamole/Aspirin (Aggrenox 25-200 Mg) 1 ea PO BID [facility] Last Admin: 05/14/17 09:44 Dose: 1 ea Glimepiride (Amaryl) 4 mg PO DAILY [facility] Last Admin: 05/14/17 09:41 Dose: 4 mg Guaifenesin (Robitussin) 200 mg PO Q6 PRN PRN Reason: Cough and congestion Last Admin: 05/14/17 09:41 Dose: 200 mg Insulin Human Regular (Novolin R) 0 unit SC A[facility]S [facility] PRN Reason: Protocol Last Admin: 05/14/17 12:27 Dose: 3 unit Metoprolol Tartrate (Lopressor) 25 mg PO Q12 [facility] Last Admin: 05/14/17 09:41 Dose: 25 mg Rosuvastatin Calcium (Crestor) 10 mg PO HS [facility] Last Admin: 05/13/17 22:13 Dose: 10 mg - Labs Labs: PT 12.0 SECONDS (9.7-12.2) 05/10/17 10:04 INR 1.1 05/10/17 10:04 APTT 72 SECONDS (21-34) H 05/10/17 10:04
--- NOTE | 2017-05-14 14:01 | CP.PCM.DIS ---
Provider - Provider Date of Admission: 05/10/17 11:20 Attending physician: Marshall Madison MD [facility] - Lab Results Lab Results: Most Recent Lab Values WBC 8.0 K/uL (4.8-10.8) 05/10/17 10:04 RBC 4.63 Mil/uL (4.40-5.90) 05/10/17 10:04 Hgb 13.6 g/dL (12.0-18.0) 05/10/17 10:04 Hct 41.8 % (35.0-51.0) 05/10/17 10:04 MCV 90.3 fL (80.0-94.0) 05/10/17 10:04 MCH 29.5 pg (27.0-31.0) 05/10/17 10:04 MCHC 32.6 g/dL (33.0-37.0) L 05/10/17 10:04 RDW 14.3 % (11.5-14.5) 05/10/17 10:04 Plt Count 152 K/uL (130-400) 05/10/17 10:04 MPV 8.1 fL (7.2-11.7) 05/10/17 10:04 Neut % (Auto) 67.3 % (50.0-75.0) 05/10/17 10:04 Lymph % (Auto) 16.6 % (20.0-40.0) L 05/10/17 10:04 [place] % (Auto) 12.3 % (0.0-10.0) H 05/10/17 10:04 Eos % (Auto) 2.8 % (0.0-4.0) 05/10/17 10:04 Baso % (Auto) 1.0 % (0.0-2.0) 05/10/17 10:04 Neut # 5.4 K/uL (1.8-7.0) 05/10/17 10:04 Lymph # 1.3 K/uL (1.0-4.3) 05/10/17 10:04 [place] # 1.0 K/uL (0.0-0.8) H 05/10/17 10:04 Eos # 0.2 K/uL (0.0-0.7) 05/10/17 10:04 Baso # 0.1 K/uL (0.0-0.2) 05/10/17 10:04 PT 12.0 SECONDS (9.7-12.2) 05/10/17 10:04 INR 1.1 05/10/17 10:04 APTT 72 SECONDS (21-34) H 05/10/17 10:04 Sodium 140 mmol/L (132-148) 05/10/17 10:04 Potassium 4.8 mmol/L (3.6-5.2) 05/10/17 10:04 Chloride 106 mmol/L (98-107) 05/10/17 10:04 Carbon Dioxide 22 mmol/L (22-30) 05/10/17 10:04 Anion Gap 16 (10-20) 05/10/17 10:04 BUN 35 mg/dL (9-20) H 05/10/17 10:04 Creatinine 1.6 MG/DL (0.8-1.5) H 05/10/17 10:04 Est GFR ( Amer) 51 05/10/17 10:04 Est GFR (Non-Af Amer) 42 05/10/17 10:04 POC Glucose (mg/dL) 225 mg/dL (65-110) H 05/14/17 11:49 Random Glucose 135 mg/dL (75-110) H 05/10/17 10:04 Hemoglobin A1c 9.4 % (4.2-6.5) H 05/10/17 10:04 Calcium 9.3 mg/dl (8.6-10.4) 05/10/17 10:04 Total Bilirubin 0.8 mg/dL (0.2-1.3) 05/10/17 10:04 AST 31 U/L (17-59) 05/10/17 10:04 ALT 35 U/L (21-72) 05/10/17 10:04 Alkaline Phosphatase 63 U/L (38-126) 05/10/17 10:04 Total Creatine Kinase 60 U/L (55-170) 05/12/17 01:45 CK-MB (Mass) 1.38 ng/mL (0.0-3.38) 05/12/17 01:45 Troponin I < 0.0120 ng/mL (0.00-0.120) 05/11/17 09:23 Troponin I, Quant < 0.0120 ng/mL (0.00-0.120) 05/12/17 01:45 Total Protein 7.3 g/dL (6.3-8.3) 05/10/17 10:04 Albumin 4.0 g/dL (3.5-5.0) 05/10/17 10:04 Globulin 3.2 gm/dL (2.2-3.9) 05/10/17 10:04 Albumin/Globulin Ratio 1.3 (1.0-2.1) 05/10/17 10:04 Triglycerides 93 mg/dL (0-149) D 05/10/17 10:04 Cholesterol 131 mg/dL (0-199) 05/10/17 10:04 LDL Cholesterol Direct 61 mg/dL (0-129) 05/10/17 10:04 HDL Cholesterol 50 mg/dL (30-70) 05/10/17 10:04 Vitamin B12 556 pg/mL (239-931) 05/13/17 20:34 Homocysteine 16.5 umol/L (6.6-14.8) H 05/13/17 20:34 Free T4 1.06 ng/dL (0.78-2.19) 05/13/17 20:34 TSH 3rd Generation 2.12 mIU/L (0.46-4.68) 05/13/17 20:34 Prolactin 24.6 ng/mL (3.7-17.9) H 05/13/17 20:34 Discharge Exam - Head Exam Head Exam: ATRAUMATIC, NORMAL INSPECTION, NORMOCEPHALIC Discharge Plan - Follow Up Plan Condition: GOOD Disposition: HOME/ ROUTINE
--- NOTE | 2017-05-14 14:30 | CP.PCM.PN ---
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 He is sitting up comfortably and he is conversing appropriately. He denies any symptoms of CP/SOB. He reports that he continues to feel intermittent numbness and weakness diffusely on his L side involving the upper extremity, lower extremity and the face. Additionally he reports that he had 2 episodes of his L hand "locking up" in the flexed position and he was unable to extend the digits. As per nursing, these events were confirmed. No acute cardiovascular symptoms overnight. Objective - Vital Signs/Intake and Output Vital Signs (last 24 hours): Temp Pulse Resp BP Pulse Ox 98.1 F 74 18 148/74 95 05/14/17 07:45 05/14/17 07:45 05/14/17 07:45 05/14/17 09:41 05/14/17 07:45 - Medications Medications: Current Medications Acetaminophen (Tylenol 325mg Tab) 650 mg PO Q6 PRN PRN Reason: Fever >100.4 F Last Admin: 05/10/17 18:58 Dose: 650 mg Clopidogrel Bisulfate (Plavix) 75 mg PO DAILY [facility] Last Admin: 05/14/17 09:41 Dose: 75 mg Diphenhydramine HCl (Benadryl) 25 mg IVP DAILY PRN PRN Reason: Give prior to MRI Last Admin: 05/12/17 10:28 Dose: 25 mg Dipyridamole/Aspirin (Aggrenox 25-200 Mg) 1 ea PO BID [facility] Last Admin: 05/14/17 09:44 Dose: 1 ea Glimepiride (Amaryl) 4 mg PO DAILY [facility] Last Admin: 05/14/17 09:41 Dose: 4 mg Guaifenesin (Robitussin) 200 mg PO Q6 PRN PRN Reason: Cough and congestion Last Admin: 05/14/17 09:41 Dose: 200 mg Insulin Human Regular (Novolin R) 0 unit SC ACHS [facility] PRN Reason: Protocol Last Admin: 05/14/17 12:27 Dose: 3 unit Metoprolol Tartrate (Lopressor) 25 mg PO Q12 [facility] Last Admin: 05/14/17 09:41 Dose: 25 mg Rosuvastatin Calcium (Crestor) 10 mg PO HS [facility] Last Admin: 05/13/17 22:13 Dose: 10 mg - Labs Labs: PT 12.0 SECONDS (9.7-12.2) 05/10/17 10:04 INR 1.1 05/10/17 10:04 APTT 72 SECONDS (21-34) H 05/10/17 10:04 - Constitutional Appears: No Acute Distress - Eye Exam Eye Exam: EOMI - ENT Exam ENT Exam: Mucous Membranes Moist - Respiratory Exam Respiratory Exam: Decreased Breath Sounds, Clear to Ausculation Bilateral - Cardiovascular Exam Cardiovascular Exam: REGULAR RHYTHM - GI/Abdominal Exam GI & Abdominal Exam: Soft. 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
--- NOTE | 2017-05-15 07:06 | CP.PCM.PN ---
Subjective - Date & Time of Evaluation Date of Evaluation: 05/15/17 Time of Evaluation: 07:06 - Subjective Subjective: Patient seen and examined at bedside. No acute events overnight as per nursing. Patient continues to feel intermittent numbness and weakness on his L side involving the upper extremity, lower extremity and the face. Patient reports no acute complaints of chest pain, palpitations, SOB, cough, abdominal pain, pain in his legs b/l. Objective - Vital Signs/Intake and Output Vital Signs (last 24 hours): Temp Pulse Resp BP Pulse Ox 97.7 F 71 20 150/70 97 05/14/17 23:40 05/15/17 05:18 05/14/17 23:40 05/14/17 23:40 05/14/17 23:40 Intake and Output: 05/15/17 05/15/17 06:59 18:59 Intake Total 400 Balance 400 - Medications Medications: Current Medications Acetaminophen (Tylenol 325mg Tab) 650 mg PO Q6 PRN PRN Reason: Fever >100.4 F Last Admin: 05/10/17 18:58 Dose: 650 mg Clopidogrel Bisulfate (Plavix) 75 mg PO DAILY [facility] Last Admin: 05/14/17 09:41 Dose: 75 mg Diphenhydramine HCl (Benadryl) 25 mg IVP DAILY PRN PRN Reason: Give prior to MRI Last Admin: 05/12/17 10:28 Dose: 25 mg Dipyridamole/Aspirin (Aggrenox 25-200 Mg) 1 ea PO BID [facility] Last Admin: 05/14/17 17:57 Dose: 1 ea Glimepiride (Amaryl) 4 mg PO DAILY [facility] Last Admin: 05/14/17 09:41 Dose: 4 mg Guaifenesin (Robitussin) 200 mg PO Q6 PRN PRN Reason: Cough and congestion Last Admin: 05/14/17 09:41 Dose: 200 mg Insulin Human Regular (Novolin R) 0 unit SC ACHS [facility] PRN Reason: Protocol Last Admin: 05/14/17 21:21 Dose: Not Given Metoprolol Tartrate (Lopressor) 25 mg PO Q12 [facility] Last Admin: 05/14/17 21:51 Dose: 25 mg Rosuvastatin Calcium (Crestor) 10 mg PO HS [facility] Last Admin: 05/14/17 21:51 Dose: 10 mg - Labs Labs: PT 12.0 SECONDS (9.7-12.2) 05/10/17 10:04 INR 1.1 05/10/17 10:04 APTT 72 SECONDS (21-34) H 05/10/17 10:04 - Constitutional Appears: Non-toxic, No Acute Distress - Head Exam Head Exam: NORMAL INSPECTION - Eye Exam Eye Exam: Normal appearance. absent: Conjunctival injection, Scleral icterus - ENT Exam ENT Exam: Mucous Membranes Moist - Respiratory Exam Respiratory Exam: Decreased Breath Sounds, Clear to Ausculation Bilateral - Cardiovascular Exam Cardiovascular Exam: REGULAR RHYTHM - GI/Abdominal Exam GI & Abdominal Exam: Soft. absent: Tenderness - Neurological Exam Neurological Exam: Alert, Awake, Oriented x3 Assessment and Plan - Assessment and Plan (Free Text) Assessment: 77 M PMHx of numerous acute cerebral infarcts in region of R MCA. Cardiology consulted for chest pain. Plan: Chest pain r/o ACS -troponin negative x 3 and no acute changes on EKG x 2 -Echo 04/16/17 shows normal EF with no abnormalities -Lipid panel WNL -HgbA1c 9.4 -Plavix 75mg po daily -Aggrenox 25-200mg 1ea po bid -Lopressor 25mg po q12 -Crestor 10mg po hs -Continue management as per medical team Cardiology will sign off. Thank you for the consult. Please re consult if necessary.
[2017-05-15] MEDS: (Novolin R) Insulin Human Regular 100 units/ml vial SC SCH ×3 (08:17→17:58)
[2017-05-15] MEDS: guaiFENesin 200 mg/10 ml Syrup UD PO PRN (09:05)
[2017-05-15] MEDS: Aspirin-Dipyridamole 200-25 mg ER Cap PO SCH ×2 (09:06→18:02)
--- NOTE | 2017-05-15 13:16 | CP.PCM.PN ---
Subjective - Date & Time of Evaluation Date of Evaluation: 05/15/17 Objective - Vital Signs/Intake and Output Vital Signs (last 24 hours): Temp Pulse Resp BP Pulse Ox 98.3 F 71 20 158/80 H 94 L 05/15/17 07:00 05/15/17 07:00 05/15/17 07:00 05/15/17 09:06 05/15/17 07:00 Intake and Output: 05/15/17 05/15/17 06:59 18:59 Intake Total 400 Balance 400 - Medications Medications: Current Medications Acetaminophen (Tylenol 325mg Tab) 650 mg PO Q6 PRN PRN Reason: Fever >100.4 F Last Admin: 05/10/17 18:58 Dose: 650 mg Clopidogrel Bisulfate (Plavix) 75 mg PO DAILY [facility] Last Admin: 05/15/17 09:05 Dose: 75 mg Diphenhydramine HCl (Benadryl) 25 mg IVP DAILY PRN PRN Reason: Give prior to MRI Last Admin: 05/12/17 10:28 Dose: 25 mg Dipyridamole/Aspirin (Aggrenox 25-200 Mg) 1 ea PO BID [facility] Last Admin: 05/15/17 09:06 Dose: 1 ea Glimepiride (Amaryl) 4 mg PO DAILY [facility] Last Admin: 05/15/17 09:06 Dose: 4 mg Guaifenesin (Robitussin) 200 mg PO Q6 PRN PRN Reason: Cough and congestion Last Admin: 05/15/17 09:05 Dose: 200 mg Insulin Human Regular (Novolin R) 0 unit SC ACHS [facility] PRN Reason: Protocol Last Admin: 05/15/17 12:30 Dose: 6 unit Metoprolol Tartrate (Lopressor) 25 mg PO Q12 [facility] Last Admin: 05/15/17 09:06 Dose: 25 mg Rosuvastatin Calcium (Crestor) 10 mg PO HS [facility] Last Admin: 05/14/17 21:51 Dose: 10 mg - Labs Labs: PT 12.0 SECONDS (9.7-12.2) 05/10/17 10:04 INR 1.1 05/10/17 10:04 APTT 72 SECONDS (21-34) H 05/10/17 10:04
[2017-05-16] MEDS: (Novolin R) Insulin Human Regular 100 units/ml vial SC SCH ×4 (08:40→22:17)
[2017-05-16] MEDS: Aspirin-Dipyridamole 200-25 mg ER Cap PO SCH ×2 (10:01→18:48)
[2017-05-16] MEDS: guaiFENesin 200 mg/10 ml Syrup UD PO PRN (10:01)
[2017-05-16] MEDS ORDERED: Aluminum Hydroxide/Magnesium Hydroxide Susp (30 mL) PO ONE (16:35)
--- NOTE | 2017-05-16 18:34 | CP.PCM.PN ---
Subjective - Date & Time of Evaluation Date of Evaluation: 05/16/17 Time of Evaluation: 07:15 - Subjective Subjective: MILD LEFT HAND WEAKNESS - SUBJECTIVE NO NEW EPISODE OF INVOL MOVEMENTS OR SPEECH IMPIRMENT NOW TOLERATING AGGRENOX WITH PLAVIX REC ALE IS STILL PENDING Objective - Vital Signs/Intake and Output Vital Signs (last 24 hours): Temp Pulse Resp BP Pulse Ox 97.7 F 91 H 20 152/72 H 95 05/16/17 08:00 05/16/17 12:36 05/16/17 08:00 05/16/17 10:00 05/16/17 08:00 Intake and Output: 05/16/17 05/16/17 06:59 18:59 Intake Total 400 Balance 400 - Medications Medications: Current Medications Acetaminophen (Tylenol 325mg Tab) 650 mg PO Q6 PRN PRN Reason: Fever >100.4 F Last Admin: 05/10/17 18:58 Dose: 650 mg Clopidogrel Bisulfate (Plavix) 75 mg PO DAILY [facility] Last Admin: 05/16/17 10:00 Dose: 75 mg Diphenhydramine HCl (Benadryl) 25 mg IVP DAILY PRN PRN Reason: Give prior to MRI Last Admin: 05/12/17 10:28 Dose: 25 mg Dipyridamole/Aspirin (Aggrenox 25-200 Mg) 1 ea PO BID [facility] Last Admin: 05/16/17 10:01 Dose: 1 ea Glimepiride (Amaryl) 4 mg PO DAILY [facility] Last Admin: 05/16/17 10:01 Dose: 4 mg Guaifenesin (Robitussin) 200 mg PO Q6 PRN PRN Reason: Cough and congestion Last Admin: 05/16/17 10:01 Dose: 200 mg Insulin Human Regular (Novolin R) 0 unit SC ACHS [facility] PRN Reason: Protocol Last Admin: 05/16/17 12:32 Dose: 3 unit Metoprolol Tartrate (Lopressor) 25 mg PO Q12 [facility] Last Admin: 05/16/17 10:00 Dose: 25 mg Ondansetron HCl (Zofran Inj) 4 mg IVP Q6H PRN PRN Reason: Nausea/Vomiting Last Admin: 05/16/17 16:53 Dose: 4 mg Rosuvastatin Calcium (Crestor) 10 mg PO HS [facility] Last Admin: 05/15/17 21:58 Dose: 10 mg - Labs Labs: PT 12.0 SECONDS (9.7-12.2) 05/10/17 10:04 INR 1.1 05/10/17 10:04 APTT 72 SECONDS (21-34) H 05/10/17 10:04 Assessment and Plan (1) Stroke (cerebrum) Status: Acute
--- NOTE | 2017-05-16 20:23 | CP.PCM.PN ---
Objective - Vital Signs/Intake and Output Vital Signs (last 24 hours): Temp Pulse Resp BP Pulse Ox 98.3 F 70 20 153/57 H 96 05/16/17 16:00 05/16/17 16:00 05/16/17 16:00 05/16/17 16:00 05/16/17 16:00 Intake and Output: 05/16/17 05/17/17 18:59 06:59 Intake Total 400 Balance 400 - Medications Medications: Current Medications Acetaminophen (Tylenol 325mg Tab) 650 mg PO Q6 PRN PRN Reason: Fever >100.4 F Last Admin: 05/10/17 18:58 Dose: 650 mg Clopidogrel Bisulfate (Plavix) 75 mg PO DAILY [facility] Last Admin: 05/16/17 10:00 Dose: 75 mg Diphenhydramine HCl (Benadryl) 25 mg IVP DAILY PRN PRN Reason: Give prior to MRI Last Admin: 05/12/17 10:28 Dose: 25 mg Dipyridamole/Aspirin (Aggrenox 25-200 Mg) 1 ea PO BID [facility] Last Admin: 05/16/17 18:48 Dose: 1 ea Glimepiride (Amaryl) 4 mg PO DAILY [facility] Last Admin: 05/16/17 10:01 Dose: 4 mg Guaifenesin (Robitussin) 200 mg PO Q6 PRN PRN Reason: Cough and congestion Last Admin: 05/16/17 10:01 Dose: 200 mg Insulin Human Regular (Novolin R) 0 unit SC ACHS [facility] PRN Reason: Protocol Last Admin: 05/16/17 18:52 Dose: 3 unit Metoprolol Tartrate (Lopressor) 25 mg PO Q12 [facility] Last Admin: 05/16/17 10:00 Dose: 25 mg Ondansetron HCl (Zofran Inj) 4 mg IVP Q6H PRN PRN Reason: Nausea/Vomiting Last Admin: 05/16/17 16:53 Dose: 4 mg Rosuvastatin Calcium (Crestor) 10 mg PO HS [facility] Last Admin: 05/15/17 21:58 Dose: 10 mg - Labs Labs: PT 12.0 SECONDS (9.7-12.2) 05/10/17 10:04 INR 1.1 05/10/17 10:04 APTT 72 SECONDS (21-34) H 05/10/17 10:04
[2017-05-16] MEDS ORDERED: Alum-Mag Hydrox-Simethicone Susp (30 mL) PO STA (21:37)
--- NOTE | 2017-05-16 21:46 | CP.PCM.PN ---
Subjective - Date & Time of Evaluation Date of Evaluation: 05/16/17 Time of Evaluation: 17:30 - Subjective Subjective: EEG REPORT: BILATERAL SLOW ACTIVITIES. NO PAROXYSMAL ACTIVITIES OR FOCAL SLOWING NOTED. PHOTIC STIMULATION NO EVOKED RESPONSES. THIS IS CONSISTENT WITH BILATERAL CEREBREAL DYSFUNCTION. CORRELATE CLINICALLY AND RADIOLOGICALLY Objective - Vital Signs/Intake and Output Vital Signs (last 24 hours): Temp Pulse Resp BP Pulse Ox 98.3 F 70 20 153/57 H 96 05/16/17 16:00 05/16/17 16:00 05/16/17 16:00 05/16/17 16:00 05/16/17 16:00 Intake and Output: 05/16/17 05/17/17 18:59 06:59 Intake Total 400 Balance 400 - Medications Medications: Current Medications Acetaminophen (Tylenol 325mg Tab) 650 mg PO Q6 PRN PRN Reason: Fever >100.4 F Last Admin: 05/10/17 18:58 Dose: 650 mg Clopidogrel Bisulfate (Plavix) 75 mg PO DAILY [facility] Last Admin: 05/16/17 10:00 Dose: 75 mg Diphenhydramine HCl (Benadryl) 25 mg IVP DAILY PRN PRN Reason: Give prior to MRI Last Admin: 05/12/17 10:28 Dose: 25 mg Dipyridamole/Aspirin (Aggrenox 25-200 Mg) 1 ea PO BID [facility] Last Admin: 05/16/17 18:48 Dose: 1 ea Glimepiride (Amaryl) 4 mg PO DAILY [facility] Last Admin: 05/16/17 10:01 Dose: 4 mg Guaifenesin (Robitussin) 200 mg PO Q6 PRN PRN Reason: Cough and congestion Last Admin: 05/16/17 10:01 Dose: 200 mg Insulin Human Regular (Novolin R) 0 unit SC ACHS [facility] PRN Reason: Protocol Last Admin: 05/16/17 18:52 Dose: 3 unit Metoprolol Tartrate (Lopressor) 25 mg PO Q12 [facility] Last Admin: 05/16/17 10:00 Dose: 25 mg Ondansetron HCl (Zofran Inj) 4 mg IVP Q6H PRN PRN Reason: Nausea/Vomiting Last Admin: 05/16/17 16:53 Dose: 4 mg Ondansetron HCl (Zofran Inj) 4 mg IVP DAILY@ONCE PRN PRN Reason: Nausea vomiting Last Admin: 05/16/17 20:55 Dose: 4 mg Rosuvastatin Calcium (Crestor) 10 mg PO HS [facility] Last Admin: 05/15/17 21:58 Dose: 10 mg - Labs Labs: PT 12.0 SECONDS (9.7-12.2) 05/10/17 10:04 INR 1.1 05/10/17 10:04 APTT 72 SECONDS (21-34) H 05/10/17 10:04 Assessment and Plan (1) Stroke (cerebrum) Status: Acute
--- NOTE | 2017-05-16 23:30 | CP.PCM.CON ---
History of Present Illness - History of Present Illness History of Present Illness: Patient seen and evaluated Scheduled for ALE in am Past Patient History - Infectious Disease Hx of Infectious Diseases: None - Past Medical History & Family History Past Medical History?: Yes - Past Social History Smoking Status: Former Smoker - CARDIAC Hx Hypercholesterolemia: Yes Hx Hypertension: Yes - PULMONARY Hx Respiratory Disorders: No - NEUROLOGICAL HX Cerebrovascular Accident: Yes - HEENT Hx HEENT Problems: No - RENAL Hx Chronic Kidney Disease: No - ENDOCRINE/METABOLIC Hx Diabetes Mellitus Type 2: Yes - HEMATOLOGICAL/ONCOLOGICAL Hx Blood Disorders: Yes Hx Blood Transfusions: Yes Hx Blood Transfusion Reaction: No - INTEGUMENTARY Hx Dermatological Problems: No - MUSCULOSKELETAL/RHEUMATOLOGICAL Hx Musculoskeletal Disorders: No Hx Falls: No - GASTROINTESTINAL Hx Gastrointestinal Disorders: Yes Hx Constipation: Yes Hx Nausea: Yes Hx Vomiting: Yes - GENITOURINARY/GYNECOLOGICAL Hx Genitourinary Disorders: No - PSYCHIATRIC Hx Substance Use: No - SURGICAL HISTORY Hx Coronary Artery Bypass Graft: Yes (2011) - ANESTHESIA Hx Anesthesia: Yes Hx Anesthesia Reactions: No Hx Malignant Hyperthermia: No Meds Allergies/Adverse Reactions: Allergies Allergy/AdvReac Type Severity Reaction Status Date / Time No Known Allergies Allergy Verified 05/10/17 09:29 - Medications Medications: Current Medications Acetaminophen (Tylenol 325mg Tab) 650 mg PO Q6 PRN PRN Reason: Fever >100.4 F Last Admin: 05/10/17 18:58 Dose: 650 mg Clopidogrel Bisulfate (Plavix) 75 mg PO DAILY [facility] Last Admin: 05/16/17 10:00 Dose: 75 mg Diphenhydramine HCl (Benadryl) 25 mg IVP DAILY PRN PRN Reason: Give prior to MRI Last Admin: 05/12/17 10:28 Dose: 25 mg Dipyridamole/Aspirin (Aggrenox 25-200 Mg) 1 ea PO BID [facility] Last Admin: 05/16/17 18:48 Dose: 1 ea Famotidine (Pepcid) 20 mg IVP Q24H [facility] Last Admin: 05/16/17 23:27 Dose: 20 mg Glimepiride (Amaryl) 4 mg PO DAILY [facility] Last Admin: 05/16/17 10:01 Dose: 4 mg Guaifenesin (Robitussin) 200 mg PO Q6 PRN PRN Reason: Cough and congestion Last Admin: 05/16/17 10:01 Dose: 200 mg Insulin Human Regular (Novolin R) 0 unit SC ACHS [facility] PRN Reason: Protocol Last Admin: 05/16/17 22:17 Dose: Not Given Metoprolol Tartrate (Lopressor) 25 mg PO Q12 [facility] Last Admin: 05/16/17 22:11 Dose: 25 mg Ondansetron HCl (Zofran Inj) 4 mg IVP Q6H PRN PRN Reason: Nausea/Vomiting Last Admin: 05/16/17 16:53 Dose: 4 mg Ondansetron HCl (Zofran Inj) 4 mg IVP DAILY@ONCE PRN PRN Reason: Nausea vomiting Last Admin: 05/16/17 20:55 Dose: 4 mg Rosuvastatin Calcium (Crestor) 10 mg PO HS [facility] Last Admin: 05/16/17 22:11 Dose: 10 mg Results - Vital Signs Recent Vital Signs: Last Vital Signs Temp 98.3 F 05/16/17 16:00 Pulse 70 05/16/17 16:00 Resp 20 05/16/17 16:00 BP 164/89 H 05/16/17 22:11 Pulse Ox 96 05/16/17 16:00 - Labs Result Diagrams: 05/10/17 10:04 05/10/17 10:04 Labs: Laboratory Results - last 24 hr 05/12/17 05/16/17 05/16/17 16:21 06:44 11:30 POC Glucose (mg/dL) 208 H 172 H 241 H 05/16/17 05/16/17 16:48 21:35 POC Glucose (mg/dL) 216 H 140 H
[2017-05-17 04:31] LABS: BASO % 0.3 % (0.0-2.0); EOS % 0.1 % (0.0-4.0); HEMOGLOBIN 14.5 g/dL (12.0-18.0); LYMPH # 0.5 K/uL (1.0-4.3); LYMPH % 3.3 % (20.0-40.0); MEAN CORPUSCULAR HEMOGLOBIN 29.2 pg (27.0-31.0); MEAN CORPUSCULAR HGB CONC 32.1 g/dL (33.0-37.0); MEAN PLATELET VOLUME 8.4 fL (7.2-11.7); MONO # 1.6 K/uL (0.0-0.8); MONO % 9.6 % (0.0-10.0); NEUT # 14.1 K/uL (1.8-7.0); NEUT % 86.7 % (50.0-75.0); NRBC % 0.1 % (0.0-2.0); PLATELET COUNT 178 K/uL (130-400); RBC 4.97 Mil/uL (4.40-5.90); RED CELL DISTRIBUTION WIDTH 14.1 % (11.5-14.5); WHITE BLOOD COUNT 16.2 K/uL (4.8-10.8)
[2017-05-17 04:37] LABS: ALBUMIN 4.1 g/dL (3.5-5.0)
[2017-05-17 04:40] LABS: ALB/GLOB RATIO 1.2 (1.0-2.1); ALT/SGPT 130 U/L (21-72); AST/SGOT 170 U/L (17-59); BLOOD UREA NITROGEN 33 mg/dL (9-20); GFR AFRICAN-AMERICAN > 60; GFR NON-AFRICAN AMERICAN 54
[2017-05-17 04:41] LABS: CALCIUM 9.6 mg/dl (8.6-10.4); MAGNESIUM 2.3 mg/dL (1.6-2.3)
[2017-05-17] MEDS ORDERED: Sod Polystyrene Sulf 15 gm/60 ml Oral Susp PO STA (05:09)
--- NOTE | 2017-05-17 05:47 | CP.PCM.PN ---
Subjective - Date & Time of Evaluation Date of Evaluation: 05/17/17 Time of Evaluation: 05:00 - Subjective Subjective: House Doctor Paged for chest pain Patient was seen and examined at bedside. Patient reported having midsternal chest pain that radiated towards his back. CBC, CMP, MAG, PHOS, GINNA, EKG was ordered. Patient was given a dose of morphine. Pain did not improve. EKG looks unchanged from previous EKGs. Labs revealed leukocytosis, hyperkalemia, and transaminitis. Stat dissection study was ordered. Objective - Vital Signs/Intake and Output Vital Signs (last 24 hours): Temp Pulse Resp BP Pulse Ox 98 F 84 20 163/81 H 95 05/16/17 23:50 05/16/17 23:50 05/16/17 23:50 05/16/17 23:50 05/16/17 23:50 Intake and Output: 05/16/17 05/17/17 18:59 06:59 Intake Total 400 Balance 400 - Medications Medications: Current Medications Acetaminophen (Tylenol 325mg Tab) 650 mg PO Q6 PRN PRN Reason: Fever >100.4 F Last Admin: 05/10/17 18:58 Dose: 650 mg Clopidogrel Bisulfate (Plavix) 75 mg PO DAILY [facility] Last Admin: 05/16/17 10:00 Dose: 75 mg Dipyridamole/Aspirin (Aggrenox 25-200 Mg) 1 ea PO BID [facility] Last Admin: 05/16/17 18:48 Dose: 1 ea Famotidine (Pepcid) 20 mg IVP Q12 [facility] Glimepiride (Amaryl) 4 mg PO DAILY [facility] Last Admin: 05/16/17 10:01 Dose: 4 mg Guaifenesin (Robitussin) 200 mg PO Q6 PRN PRN Reason: Cough and congestion Last Admin: 05/16/17 10:01 Dose: 200 mg Sodium Chloride (Sodium Chloride 0.45%) 1,000 mls @ 100 mls/hr IV .Q10H [facility] Insulin Human Regular (Novolin R) 0 unit SC ACHS [facility] PRN Reason: Protocol Last Admin: 05/16/17 22:17 Dose: Not Given Metoprolol Tartrate (Lopressor) 25 mg PO Q12 [facility] Last Admin: 05/16/17 22:11 Dose: 25 mg Ondansetron HCl (Zofran Inj) 4 mg IVP Q6H PRN PRN Reason: Nausea/Vomiting Last Admin: 05/16/17 16:53 Dose: 4 mg Ondansetron HCl (Zofran Inj) 4 mg IVP DAILY@ONCE PRN PRN Reason: Nausea vomiting Last Admin: 05/16/17 20:55 Dose: 4 mg Rosuvastatin Calcium (Crestor) 10 mg PO HS [facility] Last Admin: 05/16/17 22:11 Dose: 10 mg - Labs Labs: 05/17/17 04:26 05/17/17 04:26 PT 12.0 SECONDS (9.7-12.2) 05/10/17 10:04 INR 1.1 05/10/17 10:04 APTT 72 SECONDS (21-34) H 05/10/17 10:04
[2017-05-17] MEDS ORDERED: Iodixanol 320 MG/ML 100 ML BOTTLE IV ONE (05:51)
[2017-05-17 06:30] LABS: BANDS 1 % (0-2); LYMPHOCYTE 4 % (20-40); MONOCYTE 12 % (0-10); NEUTROPHIL 83 % (50-75); TOTAL CELLS COUNTED 100
[2017-05-17 06:31] LABS: PLATELET ESTIMATE NORMAL (NORMAL); TOXIC GRANULATION PRESENT
[2017-05-17] MEDS ORDERED: Sodium Chloride 0.45% 1,000 ML IV SCH ×2 (06:45→14:15)
--- NOTE | 2017-05-17 07:14 | CP.PCM.PN ---
Subjective - Date & Time of Evaluation Date of Evaluation: 05/17/17 Time of Evaluation: 07:00 - Subjective Subjective: PT SEEMS TO BE MENTALLY BETTER NO NEW RT CEREBRAL DYSFUNCITON C/O NEW ABDOMINAL PAIN AND NAUSEA SCHEDULED FOR ALE TOLERATING DUAL ANTIPLATLETS EEG IS NO Sz ACTIVITIES Objective - Vital Signs/Intake and Output Vital Signs (last 24 hours): Temp Pulse Resp BP Pulse Ox 97.8 F 94 H 18 184/83 H 97 05/17/17 05:52 05/17/17 05:52 05/17/17 05:52 05/17/17 05:52 05/17/17 05:52 - Medications Medications: Current Medications Acetaminophen (Tylenol 325mg Tab) 650 mg PO Q6 PRN PRN Reason: Fever >100.4 F Last Admin: 05/10/17 18:58 Dose: 650 mg Clopidogrel Bisulfate (Plavix) 75 mg PO DAILY [facility] Last Admin: 05/16/17 10:00 Dose: 75 mg Dipyridamole/Aspirin (Aggrenox 25-200 Mg) 1 ea PO BID [facility] Last Admin: 05/16/17 18:48 Dose: 1 ea Famotidine (Pepcid) 20 mg IVP Q12 [facility] Glimepiride (Amaryl) 4 mg PO DAILY [facility] Last Admin: 05/16/17 10:01 Dose: 4 mg Guaifenesin (Robitussin) 200 mg PO Q6 PRN PRN Reason: Cough and congestion Last Admin: 05/16/17 10:01 Dose: 200 mg Sodium Chloride (Sodium Chloride 0.45%) 1,000 mls @ 100 mls/hr IV .Q10H [facility] Last Admin: 05/17/17 06:56 Dose: 100 mls/hr Insulin Human Regular (Novolin R) 0 unit SC ACHS [facility] PRN Reason: Protocol Last Admin: 05/16/17 22:17 Dose: Not Given Metoprolol Tartrate (Lopressor) 25 mg PO Q12 [facility] Last Admin: 05/16/17 22:11 Dose: 25 mg Ondansetron HCl (Zofran Inj) 4 mg IVP Q6H PRN PRN Reason: Nausea/Vomiting Last Admin: 05/16/17 16:53 Dose: 4 mg Ondansetron HCl (Zofran Inj) 4 mg IVP DAILY@ONCE PRN PRN Reason: Nausea vomiting Last Admin: 05/16/17 20:55 Dose: 4 mg Rosuvastatin Calcium (Crestor) 10 mg PO HS [facility] Last Admin: 05/16/17 22:11 Dose: 10 mg - Labs Labs: 05/17/17 04:26 05/17/17 04:26 PT 12.0 SECONDS (9.7-12.2) 05/10/17 10:04 INR 1.1 05/10/17 10:04 APTT 72 SECONDS (21-34) H 05/10/17 10:04 Assessment and Plan (1) Stroke (cerebrum) Status: Acute
--- NOTE | 2017-05-17 07:24 | CARD ---
APPROVED REPORT EKG Measurement Heart [id number] [place] 168P [id number] <Conclusion> Poor data quality, interpretation may be adversely affected Suspect arm lead reversal, interpretation assumes no reversal Sinus rhythm with occasional premature ventricular complexes and fusion complexes Lateral infarct, age undetermined Inferior infarct, age undetermined Abnormal ECG
--- NOTE | 2017-05-17 07:26 | CARD ---
APPROVED REPORT EKG Measurement Heart [id number] <Conclusion> Normal sinus rhythm Inferior infarct, age undetermined Abnormal ECG
--- NOTE | 2017-05-17 07:27 | CARD ---
APPROVED REPORT EKG Measurement Heart [id number] [place] [id number] [id number] <Conclusion> Normal sinus rhythm Inferior infarct, age undetermined Abnormal ECG
[2017-05-17 07:33] LABS: INR 1.2; PROTHROMBIN TIME 13.2 SECONDS (9.7-12.2)
[2017-05-17 08:17] VITALS: RESP 20
[2017-05-17] MEDS: (Novolin R) Insulin Human Regular 100 units/ml vial SC SCH ×4 (08:42→23:20)
[2017-05-17] MEDS: Piperacillin/Tazobact 3.375 GM in Sodium Chloride 100 ML IVPB SCH ×2 (10:16→19:52)
[2017-05-17] MEDS: Aspirin-Dipyridamole 200-25 mg ER Cap PO SCH ×2 (10:18→23:19)
--- NOTE | 2017-05-17 13:28 | US ---
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 FINDINGS: LIVER: Measures 21.6 cm in length. Echogenic liver may be seen in setting of hepatic parenchymal disease or fatty infiltration. No focal hepatic mass identified. No intrahepatic bile duct dilatation. GALLBLADDER: Gallstones. No gallbladder wall thickening or pericholecystic edema. Echogenic foci about the gallbladder wall presumably related to a air demonstrated on CT performed 05/17/17. Positive sonographic Saleh's sign as assessed by the belling machine operator. COMMON BILE DUCT: Measures 4 mm. PANCREAS: Not well-visualized. RIGHT KIDNEY: Measures 11.3 x 5.1 x 5.0 cm. No obstructing calculus or hydronephrosis identified. Right lower pole lesion with associated calcification, poorly visualized. AORTA: Limited visualization appears grossly unremarkable. IVC: Limited visualization appears grossly unremarkable. OTHER FINDINGS: None . IMPRESSION: Gallstones. No gallbladder wall thickening or pericholecystic edema. Echogenic foci about the gallbladder wall presumably related to a air demonstrated on CT performed 05/17/17. Positive sonographic Saleh's sign as assessed by the belling machine operator. Correlate clinically. Right lower pole renal lesion with associated calcification, poorly visualized. Hepatomegaly. Echogenic liver may be seen in setting of hepatic parenchymal disease or fatty infiltration.
--- NOTE | 2017-05-17 13:57 | CP.PCM.CON ---
History of Present Illness - History of Present Illness History of Present Illness: General surgery consult for Fauzia Ventura, PGY-1 Pt S & E at bedside. 77M w/PMH sig for CVA, HTN, DM, HLD consulted for potential retroperitoneal hematoma on Pt states that he was admitted to the hospital for dizziness, non productive cough x 6 days. Pt states that 2 days ago, he developed severe, intermittent, RUQ abdominal pain w/radiation to Right back. Pain was alleviated by morphine. Denies association with fatty food intake. No aggravating factors identified. Pt admits to nausea, numerous episodes of bilious, non bloody emesis (states he is vomiting Q5min) x 2 days, back pain (diffuse), chest pain, numbness and tingling of extremities. Denies fevers, chills, recent illness, constipation, diarrhea, changes in urinary habits (dysuria, hematuria, urgency), SOB, hematochezia, hematuria. PMH: CVA, HTN, HLD, DM, chronic constipation, cataracts PSH: CABG (2011), Left inguinal hernia repair (1986) All: Denies SH: former tobacco use (quit 30 yrs ago, 1ppd x 10 yrs), denies ETOH or illicit drug use; wears glasses FH: Colon CA in siblings and mother Review of Systems - Constitutional Constitutional: absent: Chills, Fever - EENT Eyes: absent: Change in Vision Nose/Mouth/Throat: Epistaxis (occasional). absent: Sore Throat - Cardiovascular Cardiovascular: Chest Pain, Leg Edema, Lightheadedness. absent: Palpitations - Respiratory Respiratory: Cough (non productive) - Gastrointestinal Gastrointestinal: Abdominal Pain (RUQ), Constipation (occasional), Nausea, Vomiting. absent: Diarrhea, Dysphagia, Hematemesis, Hematochezia - Genitourinary Genitourinary: absent: Change in Urinary Stream, Dysuria, Hematuria - Musculoskeletal Musculoskeletal: absent: Neck Pain - Neurological Neurological: Dizziness, Numbness (of extremities), Tingling (of extremities). absent: Focal Weakness Past Patient History - Infectious Disease Hx of Infectious Diseases: None - Past Medical History & Family History Past Medical History?: Yes - Past Social History Smoking Status: Former Smoker - CARDIAC Hx Hypercholesterolemia: Yes Hx Hypertension: Yes - PULMONARY Hx Respiratory Disorders: No - NEUROLOGICAL HX Cerebrovascular Accident: Yes - HEENT Hx HEENT Problems: No - RENAL Hx Chronic Kidney Disease: No - ENDOCRINE/METABOLIC Hx Diabetes Mellitus Type 2: Yes - HEMATOLOGICAL/ONCOLOGICAL Hx Blood Disorders: Yes Hx Blood Transfusions: Yes Hx Blood Transfusion Reaction: No - INTEGUMENTARY Hx Dermatological Problems: No - MUSCULOSKELETAL/RHEUMATOLOGICAL Hx Musculoskeletal Disorders: No Hx Falls: No - GASTROINTESTINAL Hx Gastrointestinal Disorders: Yes Hx Constipation: Yes Hx Nausea: Yes Hx Vomiting: Yes - GENITOURINARY/GYNECOLOGICAL Hx Genitourinary Disorders: No - PSYCHIATRIC Hx Substance Use: No - SURGICAL HISTORY Hx Coronary Artery Bypass Graft: Yes (2011) - ANESTHESIA Hx Anesthesia: Yes Hx Anesthesia Reactions: No Hx Malignant Hyperthermia: No Meds Allergies/Adverse Reactions: Allergies Allergy/AdvReac Type Severity Reaction Status Date / Time No Known Allergies Allergy Verified 05/10/17 09:29 - Medications Medications: Current Medications Acetaminophen (Tylenol 325mg Tab) 650 mg PO Q6 PRN PRN Reason: Fever >100.4 F Last Admin: 05/10/17 18:58 Dose: 650 mg Clopidogrel Bisulfate (Plavix) 75 mg PO DAILY [facility] [place] Last Admin: 05/17/17 10:18 Dose: 75 mg Dipyridamole/Aspirin (Aggrenox 25-200 Mg) 1 ea PO BID [facility] Last Admin: 05/17/17 10:18 Dose: 1 ea Famotidine (Pepcid) 20 mg IVP Q12 [facility] Last Admin: 05/17/17 10:18 Dose: 20 mg Glimepiride (Amaryl) 4 mg PO DAILY [facility] Last Admin: 05/17/17 10:18 Dose: 4 mg Guaifenesin (Robitussin) 200 mg PO Q6 PRN PRN Reason: Cough and congestion Last Admin: 05/16/17 10:01 Dose: 200 mg Sodium Chloride (Sodium Chloride 0.45%) 1,000 mls @ 100 mls/hr IV .Q10H [facility] Last Admin: 05/17/17 06:56 Dose: 100 mls/hr Piperacillin Sod/Tazobactam (Sod 3.375 gm/ Sodium Chloride) 100 mls @ 200 mls/ hr IVPB Q8H [facility] Last Admin: 05/17/17 10:16 Dose: 200 mls/hr Insulin Human Regular (Novolin R) 0 unit SC ACHS [facility] [place] PRN Reason: Protocol Last Admin: 05/17/17 12:48 Dose: Not Given Metoprolol Tartrate (Lopressor) 25 mg PO Q12 [facility] Last Admin: 05/17/17 10:18 Dose: 25 mg Ondansetron HCl (Zofran Inj) 4 mg IVP Q6H PRN PRN Reason: Nausea/Vomiting Last Admin: 05/16/17 16:53 Dose: 4 mg Ondansetron HCl (Zofran Inj) 4 mg IVP DAILY@ONCE PRN PRN Reason: Nausea vomiting Last Admin: 05/16/17 20:55 Dose: 4 mg Rosuvastatin Calcium (Crestor) 10 mg PO HS [facility] Last Admin: 05/16/17 22:11 Dose: 10 mg Physical Exam - Constitutional Appears: Non-toxic, No Acute Distress - Head Exam Head Exam: ATRAUMATIC, NORMAL INSPECTION, NORMOCEPHALIC - Eye Exam Eye Exam: EOMI, Normal appearance, PERRL. absent: Nystagmus Pupil Exam: NORMAL ACCOMODATION, PERRL - ENT Exam ENT Exam: Mucous Membranes Moist, Normal Exam - Neck Exam Neck exam: Positive for: Full Rom, Normal Inspection - Respiratory Exam Respiratory Exam: Clear to Auscultation Bilateral, NORMAL BREATHING PATTERN. absent: Accessory Muscle Use, Chest Wall Tenderness, Rales, Rhonchi, Wheezes, Respiratory Distress Additional comments: Midchest with linear, well healed surgical incision - Cardiovascular Exam Cardiovascular Exam: REGULAR RHYTHM, +S1, +S2 - GI/Abdominal Exam GI & Abdominal Exam: Guarding (RUQ), Hernia (umbilical), Normal Bowel Sounds, Tenderness (RUQ). absent: Distended (obese), Firm, Rebound, Rigid Additional comments: diastasis + Saleh's sign - Extremities Exam Extremities exam: Positive for: full ROM, normal inspection. Negative for: tenderness - Back Exam Back exam: FULL ROM, NORMAL INSPECTION, tenderness (diffuse). absent: CVA tenderness (L), CVA tenderness (R) - Neurological Exam Neurological exam: Alert, CN II-XII Intact, Oriented x3 - Psychiatric Exam Psychiatric exam: Normal Affect, Normal Mood - Skin Skin Exam: Dry, Intact, Normal Color, Warm Results - Vital Signs Recent Vital Signs: Last Vital Signs Temp 99.5 F 05/17/17 08:16 Pulse 106 H 05/17/17 08:16 Resp 20 05/17/17 08:16 BP 126/76 05/17/17 10:18 Pulse Ox 98 05/17/17 08:16 - Labs Result Diagrams: 05/17/17 04:26 05/17/17 04:26 Labs: Laboratory Results - last 24 hr 05/16/17 05/16/17 05/17/17 16:48 21:35 04:26 WBC 16.2 H D RBC 4.97 Hgb 14.5 Hct 45.2 MCV 91.0 MCH 29.2 MCHC 32.1 L RDW 14.1 Plt Count 178 MPV 8.4 Neut % (Auto) 86.7 H Lymph % (Auto) 3.3 L [place] % (Auto) 9.6 Eos % (Auto) 0.1 Baso % (Auto) 0.3 Neut # 14.1 H Lymph # 0.5 L [place] # 1.6 H Eos # 0.0 Baso # 0.0 Neutrophils % (Manual) 83 H Band Neutrophils % 1 Lymphocytes % (Manual) 4 L Monocytes % (Manual) 12 H Toxic Granulation Present Platelet Estimate Normal RBC Morphology Normal PT INR APTT Sodium Potassium Chloride Carbon Dioxide Anion Gap BUN Creatinine Est GFR ( Amer) Est GFR (Non-Af Amer) POC Glucose (mg/dL) 216 H 140 H Random Glucose Calcium Phosphorus Magnesium Total Bilirubin AST ALT Alkaline Phosphatase Total Creatine Kinase CK-MB (Mass) Troponin I, Quant Total Protein Albumin Globulin Albumin/Globulin Ratio 05/17/17 05/17/17 05/17/17 04:26 06:56 07:11 WBC RBC Hgb Hct MCV MCH MCHC RDW Plt Count MPV Neut % (Auto) Lymph % (Auto) Jasper % (Auto) Eos % (Auto) Baso % (Auto) Neut # Lymph # Jasper # Eos # Baso # Neutrophils % (Manual) Band Neutrophils % Lymphocytes % (Manual) Monocytes % (Manual) Toxic Granulation Platelet Estimate RBC Morphology PT 13.2 H INR 1.2 APTT 71 H Sodium 137 Potassium 5.7 H Chloride 101 Carbon Dioxide 24 Anion Gap 17 BUN 33 H Creatinine 1.3 Est GFR ( Amer) > 60 Est GFR (Non-Af Amer) 54 POC Glucose (mg/dL) 253 H Random Glucose 305 H Calcium 9.6 Phosphorus 2.8 Magnesium 2.3 Total Bilirubin 1.6 H AST 170 H D ALT 130 H D Alkaline Phosphatase 162 H D Total Creatine Kinase 42 L CK-MB (Mass) 1.50 Troponin I, Quant 0.0180 Total Protein 7.6 Albumin 4.1 Globulin 3.5 Albumin/Globulin Ratio 1.2 05/17/17 11:38 WBC RBC Hgb Hct MCV MCH MCHC RDW Plt Count MPV Neut % (Auto) Lymph % (Auto) [place]asper % (Auto) Eos % (Auto) Baso % (Auto) Neut # Lymph # [place] # Eos # Baso # Neutrophils % (Manual) Band Neutrophils % Lymphocytes % (Manual) Monocytes % (Manual) Toxic Granulation Platelet Estimate RBC Morphology PT INR APTT Sodium Potassium Chloride Carbon Dioxide Anion Gap BUN Creatinine Est GFR ( Amer) Est GFR (Non-Af Amer) POC Glucose (mg/dL) 255 H Random Glucose Calcium Phosphorus Magnesium Total Bilirubin AST ALT Alkaline Phosphatase Total Creatine Kinase CK-MB (Mass) Troponin I, Quant Total Protein Albumin Globulin Albumin/Globulin Ratio Assessment & Plan - Assessment and Plan (Free Text) Plan: 77M w/sepsis 2/2 emphysematous gallbladder w/transaminitis -Cont IVF- changed to NS @100 -Cont ABx -FU trujillo cultures -FU lipase, amylase, Lactate -Rec ID c/s -Rec IR c/s for armando tube 2/2 pt currently on anticoagulation and underlying co -morbidities -Rec GI c/s -Regarding retroperitoneal hematoma-recheck Hgb in AM, pain likely 2/2 emphysematous gallbladder DW attending Shannon, PGY-1 - Date & Time Date: 05/17/17 Time: 13:59
--- NOTE | 2017-05-17 14:43 | CT ---
Dissection CT Indication: Rule out aortic dissection Technique: Contiguous axial images were obtained through the chest, abdomen, and pelvis with intravenous contrast enhancement. Sagittal and coronal reconstructions were generated and reviewed. This CT exam was performed using 1 or more of the falling dose reduction techniques: Automated exposure control, adjustment of the MAA and/or kV according to patient size, and/or use of iterative reconstruction technique. IV Contrast: 100 cc Visipaque Radiation dose (DLP): 2644.44 MGy-cm. Comparison: CT abdomen and pelvis with contrast performed 12/31/14 chest x-ray performed 04/13/27 Findings: 1.8 x 2.5 cm left peritracheal soft tissue lesion appears to arise from the lower pole inferior thyroid gland, likely nodule. The mediastinal and hilar vascular structures appear grossly unremarkable. Median sternotomy wires and vascular clips compatible with CABG. The heart appears within normal limits of size. Minimal basilar atelectasis. No focal consolidation. No pleural effusion. No pneumothorax. No suspicious pulmonary nodules measuring greater than 5 mm. Scattered atherosclerotic calcifications of the aorta and branches. There is normal course and contour of the abdominal aorta and common iliac arteries. The celiac artery origin is widely patent. The superior mesenteric artery origin is widely patent. The inferior mesenteric artery origin is patent. Single renal arteries identified bilaterally, both widely patent. Mild intrahepatic pneumobilia. Intraluminal gas within the gallbladder lumen. Gas is noted within the cystic duct and common bile duct. Numerous gallstones within the gallbladder. Gallbladder wall thickening. Pericholecystic inflammatory stranding and fluid. Air also appears within the gallbladder wall. 19 mm low-density lesion within the right lower pole kidney with associated peripheral calcifications. No hydronephrosis. No obstructing calculus evident. The spleen, right adrenal gland, and pancreas appear unremarkable. Nodular appearance of the left adrenal gland. 5.6 x 3.5 cm left retroperitoneal mass medial to the left kidney, appear cystic. Small fat containing umbilical hernia. The stomach is nondistended. The bowel loops appear within normal limits of caliber without evidence of intestinal obstruction. Diverticulosis without CT evidence of acute diverticulitis. The appendix appears within normal limits of caliber. No secondary signs of acute appendicitis. There is no definite free air. Enlarged prostate gland measures approximately 6.1 x 6.6 cm. Under distention of the urinary bladder limits evaluation. Probable tiny urachal remnant and calcification. Fat containing left inguinal hernia. Degenerative changes of the spine. Impression: Findings as described above appear consistent with emphysematous cholecystitis. Correlate clinically. No evidence for aortic dissection. Left retroperitoneal cystic appearing mass, indeterminate. Considerations include but not limited to cystic lymphangioma, mesothelioma, chronic hematoma, etc. Recommend further evaluation as indicated. 1.8 x 2.5 cm left peritracheal soft tissue lesion appears to arise from the lower pole inferior thyroid gland, likely nodule. Recommend dedicated thyroid ultrasound for further evaluation. Enlargement of the prostate gland. Recommend correlation with PSA. Additional findings as above. Preliminary impression was provided by virtual radiologic. Emergent findings were discussed between Dr. Mckee and GAY Higgins by telephone on 05/17/17 at 8:35 a.m. Additional findings discussed with GAY Higgins on 05/17/17 at 2:38 p.m..
--- NOTE | 2017-05-17 18:03 | CP.PCM.PN ---
Objective - Vital Signs/Intake and Output Vital Signs (last 24 hours): Temp Pulse Resp BP Pulse Ox 98.9 F 103 H 20 148/74 95 05/17/17 16:00 05/17/17 16:00 05/17/17 16:00 05/17/17 16:00 05/17/17 16:00 Intake and Output: 05/17/17 05/17/17 06:59 18:59 Intake Total 600 Balance 600 - Medications Medications: Current Medications Acetaminophen (Tylenol 325mg Tab) 650 mg PO Q6 PRN PRN Reason: Fever >100.4 F Last Admin: 05/10/17 18:58 Dose: 650 mg Clopidogrel Bisulfate (Plavix) 75 mg PO DAILY [facility] Last Admin: 05/17/17 10:18 Dose: 75 mg Dipyridamole/Aspirin (Aggrenox 25-200 Mg) 1 ea PO BID [facility] Last Admin: 05/17/17 10:18 Dose: 1 ea Famotidine (Pepcid) 20 mg IVP Q12 [facility] Last Admin: 05/17/17 10:18 Dose: 20 mg Glimepiride (Amaryl) 4 mg PO DAILY [facility] Last Admin: 05/17/17 10:18 Dose: 4 mg Guaifenesin (Robitussin) 200 mg PO Q6 PRN PRN Reason: Cough and congestion Last Admin: 05/16/17 10:01 Dose: 200 mg Piperacillin Sod/Tazobactam (Sod 3.375 gm/ Sodium Chloride) 100 mls @ 200 mls/ hr IVPB Q8H [facility] Last Admin: 05/17/17 10:16 Dose: 200 mls/hr Sodium Chloride (Sodium Chloride 0.9%) 1,000 mls @ 100 mls/hr IV .Q10H [facility] Insulin Human Regular (Novolin R) 0 unit SC ACHS [facility] PRN Reason: Protocol Last Admin: 05/17/17 12:48 Dose: Not Given Metoprolol Tartrate (Lopressor) 25 mg PO Q12 [facility] Last Admin: 05/17/17 10:18 Dose: 25 mg Ondansetron HCl (Zofran Inj) 4 mg IVP Q6H PRN PRN Reason: Nausea/Vomiting Last Admin: 05/16/17 16:53 Dose: 4 mg Ondansetron HCl (Zofran Inj) 4 mg IVP DAILY@ONCE PRN PRN Reason: Nausea vomiting Last Admin: 05/16/17 20:55 Dose: 4 mg Rosuvastatin Calcium (Crestor) 10 mg PO HS [facility] Last Admin: 05/16/17 22:11 Dose: 10 mg - Labs Labs: 05/17/17 04:26 05/17/17 04:26 PT 13.2 SECONDS (9.7-12.2) H 05/17/17 07:11 INR 1.2 05/17/17 07:11 APTT 71 SECONDS (21-34) H 05/17/17 07:11
--- NOTE | 2017-05-17 18:51 | CP.PCM.CON ---
History of Present Illness - History of Present Illness History of Present Illness: 77M w/PMH sig for CVA, HTN, DM, HLD was admitted to the hospital for dizziness, non productive cough x 6 days. Pt states that 2 days [employer]ORDINATE MEAS[employer]MENT [employer] , he developed severe, intermittent, RUQ abdominal pain w/radiation to Right back. 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 and ID consulted for possible sepsis DR Epps on board for GI IV antibiotics in progress PMH: CVA, HTN, HLD, DM, chronic constipation, cataracts PSH: CABG (2011), Left inguinal hernia repair (1986) All: Denies SH: former tobacco use (quit 30 yrs ago, 1ppd x 10 yrs), denies ETOH or illicit drug use; wears glasses FH: Colon CA in siblings and mother Review of Systems - Review of Systems All systems: reviewed and no additional remarkable complaints except - Constitutional Constitutional: As Per HPI - EENT Eyes: absent: As Per HPI, Blind Spots, Blurred Vision, Change in Vision, Decreased Night Vision, Diplopia, Discharge, Dry Eye, Exophthalmos, Floaters, Irritation, Itchy Eyes, Loss of Peripheral Vision, Pain, Photophobia, Requires Corrective Lenses, Sees Flashes, Spots in Vision, Tunnel Vision, Other Visual Disturbances, Loss of Vision, Other Ears: absent: As Per HPI, Decreased Hearing, Ear Discharge, Ear Pain, Tinnitus, Abnormal Hearing, Disequilibrium, Dizziness, Other Nose/Mouth/Throat: absent: As Per HPI, Epistaxis, Nasal Congestion, Nasal Discharge, Nasal Obstruction, Nasal Trauma, Nose Pain, Post Nasal Drip, Sinus Pain, Sinus Pressure, Bleeding Gums, Change in Voice, Dental Pain, Dry Mouth, Dysphagia, Halitosis, Hoarsness, Lip Swelling, Mouth Lesions, Mouth Pain, Odynophagia, Sore Throat, Throat Swelling, Tongue Swelling, Facial Pain, Neck Pain, Neck Mass, Other - Cardiovascular Cardiovascular: As Per HPI - Respiratory Respiratory: As Per HPI - Gastrointestinal Gastrointestinal: As Per HPI, Abdominal Pain - Genitourinary Genitourinary: absent: As Per HPI, Change in Urinary Stream, Difficulty Urinating, Dysuria, Flank Pain, Hematuria, Pyuria, Nocturia, Urinary Incontinence, Urinary Frequency, Urinary Hesitance, Urinary Urgency, Voiding Freq/Small Amts, Freq UTI, Hx Renal/Bladder Calculi, Hx /Renal Surgery, Bladder Distension, Other - Musculoskeletal Musculoskeletal: absent: As Per HPI, Abnormal Gait, Arthralgias, Atrophy, Back Pain, Deformity, Joint Swelling, Limited Range of Motion, Loss of Height, Muscle Cramps, Muscle Weakness, Myalgias, Neck Pain, Numbness, Radiating Pain into Limb, Stiffness, Tingling, Other - Neurological Neurological: absent: As Per HPI, Abnormal Gait, Abnormal Hearing, Abnormal Movements, Abnormal Speech, Behavioral Changes, Burning Sensations, Confusion, Convulsions, Disequilibrium, Dizziness, Numbness, Focal Weakness, Frequent Falls , Headaches, Lack of Coordination, Loss of Vision, Memory Loss, Paresthesias, Radicular Pain, Restless Legs, Sensory Deficit, Syncope, Tingling, Tremor, Vertigo, Weakness, Other Visual Disturbances, Other - Psychiatric Psychiatric: absent: As Per HPI, Abnormal Sleep Pattern, Anhedonia, Anxiety, Auditory Hallucinations, Behavioral Changes, Change in Appetite, Change in Libido, Confusion, Depression, Difficulty Concentrating, Hallucinations, Homicidal Ideation, Hopelessness, Irritability, Memory Loss, Mood Swings, Panic Attacks, Paranoia, Suicidal Ideation, Visual Hallucinations, Tactile Hallucinations, Other - Endocrine Endocrine: absent: As Per HPI, Change in Body Appearance, Change in Libido, Cold Intolorance, Deepening of Voice, Excessive Sweating, Fatigue, Flushing, Heat Intolorance, Increase in Ring/Shoe/Hat Size, Palpitations, Polydipsia, Polyphagia, Polyuria, Other - Hematologic/Lymphatic Hematologic: absent: As Per HPI, Easy Bleeding, Easy Bruising, Lymphadenopathy, Other Past Patient History - Infectious Disease Hx of Infectious Diseases: None - Past Medical History & Family History Past Medical History?: Yes - Past Social History Smoking Status: Former Smoker - CARDIAC Hx Hypercholesterolemia: Yes Hx Hypertension: Yes - PULMONARY Hx Respiratory Disorders: No - NEUROLOGICAL HX Cerebrovascular Accident: Yes - HEENT Hx HEENT Problems: No - RENAL Hx Chronic Kidney Disease: No - ENDOCRINE/METABOLIC Hx Diabetes Mellitus Type 2: Yes - HEMATOLOGICAL/ONCOLOGICAL Hx Blood Disorders: Yes Hx Blood Transfusions: Yes Hx Blood Transfusion Reaction: No - INTEGUMENTARY Hx Dermatological Problems: No - MUSCULOSKELETAL/RHEUMATOLOGICAL Hx Musculoskeletal Disorders: No Hx Falls: No - GASTROINTESTINAL Hx Gastrointestinal Disorders: Yes Hx Constipation: Yes Hx Nausea: Yes Hx Vomiting: Yes - GENITOURINARY/GYNECOLOGICAL Hx Genitourinary Disorders: No - PSYCHIATRIC Hx Substance Use: No - SURGICAL HISTORY Hx Coronary Artery Bypass Graft: Yes (2011) - ANESTHESIA Hx Anesthesia: Yes Hx Anesthesia Reactions: No Hx Malignant Hyperthermia: No Meds Allergies/Adverse Reactions: Allergies Allergy/AdvReac Type Severity Reaction Status Date / Time No Known Allergies Allergy Verified 05/10/17 09:29 - Medications Medications: Current Medications Acetaminophen (Tylenol 325mg Tab) 650 mg PO Q6 PRN PRN Reason: Fever >100.4 F Last Admin: 05/10/17 18:58 Dose: 650 mg Clopidogrel Bisulfate (Plavix) 75 mg PO DAILY [facility] Last Admin: 05/17/17 10:18 Dose: 75 mg Dipyridamole/Aspirin (Aggrenox 25-200 Mg) 1 ea PO BID [facility] Last Admin: 05/17/17 10:18 Dose: 1 ea Famotidine (Pepcid) 20 mg IVP Q12 [facility] Last Admin: 05/17/17 10:18 Dose: 20 mg Glimepiride (Amaryl) 4 mg PO DAILY [facility] Last Admin: 05/17/17 10:18 Dose: 4 mg Guaifenesin (Robitussin) 200 mg PO Q6 PRN PRN Reason: Cough and congestion Last Admin: 05/16/17 10:01 Dose: 200 mg Piperacillin Sod/Tazobactam (Sod 3.375 gm/ Sodium Chloride) 100 mls @ 200 mls/ hr IVPB Q8H [facility] Last Admin: 05/17/17 10:16 Dose: 200 mls/hr Sodium Chloride (Sodium Chloride 0.9%) 1,000 mls @ 100 mls/hr IV .Q10H [facility] Insulin Human Regular (Novolin R) 0 unit SC ACHS [facility] PRN Reason: Protocol Last Admin: 05/17/17 12:48 Dose: Not Given Metoprolol Tartrate (Lopressor) 25 mg PO Q12 [facility] Last Admin: 05/17/17 10:18 Dose: 25 mg Ondansetron HCl (Zofran Inj) 4 mg IVP Q6H PRN PRN Reason: Nausea/Vomiting Last Admin: 05/16/17 16:53 Dose: 4 mg Ondansetron HCl (Zofran Inj) 4 mg IVP DAILY@ONCE PRN PRN Reason: Nausea vomiting Last Admin: 05/16/17 20:55 Dose: 4 mg Rosuvastatin Calcium (Crestor) 10 mg PO HS [facility] Last Admin: 05/16/17 22:11 Dose: 10 mg Physical Exam - Constitutional Appears: Non-toxic, Chronically Ill - Head Exam Head Exam: NORMOCEPHALIC - Eye Exam Eye Exam: PERRL. absent: Scleral icterus - ENT Exam ENT Exam: Mucous Membranes Dry, Normal External Ear Exam - Neck Exam Neck exam: Negative for: Lymphadenopathy - Respiratory Exam Respiratory Exam: Decreased Breath Sounds, Rhonchi - Cardiovascular Exam Cardiovascular Exam: REGULAR RHYTHM, +S1, +S2 - GI/Abdominal Exam GI & Abdominal Exam: Diminished Bowel Sounds, Distended, Guarding, Soft, Tenderness. absent: Rebound, Rigid - Rectal Exam Rectal Exam: Deferred - Exam Exam: NORMAL INSPECTION - Extremities Exam Extremities exam: Positive for: pedal pulses present. Negative for: calf tenderness, pedal edema, tenderness - Back Exam Back exam: absent: CVA tenderness (L), CVA tenderness (R) - Neurological Exam Neurological exam: Alert, CN II-XII Intact, Oriented x3, Reflexes Normal - Psychiatric Exam Psychiatric exam: Normal Mood - Skin Skin Exam: Dry, Intact Results - Vital Signs Recent Vital Signs: Last Vital Signs Temp 98.9 F 05/17/17 16:00 Pulse 103 H 05/17/17 16:00 Resp 20 05/17/17 16:00 BP 148/74 05/17/17 16:00 Pulse Ox 95 05/17/17 16:00 - Labs Result Diagrams: 05/17/17 04:26 05/17/17 04:26 Labs: Laboratory Results - last 24 hr 05/16/17 05/17/17 05/17/17 21:35 04:26 04:26 WBC 16.2 H D RBC 4.97 Hgb 14.5 Hct 45.2 MCV 91.0 MCH 29.2 MCHC 32.1 L RDW 14.1 Plt Count 178 MPV 8.4 Neut % (Auto) 86.7 H Lymph % (Auto) 3.3 L Gila % (Auto) 9.6 Eos % (Auto) 0.1 Baso % (Auto) 0.3 Neut # 14.1 H Lymph # 0.5 L Gila # 1.6 H Eos # 0.0 Baso # 0.0 Neutrophils % (Manual) 83 H Band Neutrophils % 1 Lymphocytes % (Manual) 4 L Monocytes % (Manual) 12 H Toxic Granulation Present Platelet Estimate Normal RBC Morphology Normal PT INR APTT Sodium 137 Potassium 5.7 H Chloride 101 Carbon Dioxide 24 Anion Gap 17 BUN 33 H Creatinine 1.3 Est GFR ( Amer) > 60 Est GFR (Non-Af Amer) 54 POC Glucose (mg/dL) 140 H Random Glucose 305 H Calcium 9.6 Phosphorus 2.8 Magnesium 2.3 Total Bilirubin 1.6 H AST 170 H D ALT 130 H D Alkaline Phosphatase 162 H D Total Creatine Kinase 42 L CK-MB (Mass) 1.50 Troponin I, Quant 0.0180 Total Protein 7.6 Albumin 4.1 Globulin 3.5 Albumin/Globulin Ratio 1.2 05/17/17 05/17/17 05/17/17 06:56 07:11 11:38 WBC RBC Hgb Hct MCV MCH MCHC RDW Plt Count MPV Neut % (Auto) Lymph % (Auto) Gila % (Auto) Eos % (Auto) Baso % (Auto) Neut # Lymph # Gila # Eos # Baso # Neutrophils % (Manual) Band Neutrophils % Lymphocytes % (Manual) Monocytes % (Manual) Toxic Granulation Platelet Estimate RBC Morphology PT 13.2 H INR 1.2 APTT 71 H Sodium Potassium Chloride Carbon Dioxide Anion Gap BUN Creatinine Est GFR ( Amer) Est GFR (Non-Af Amer) POC Glucose (mg/dL) 253 H 255 H Random Glucose Calcium Phosphorus Magnesium Total Bilirubin AST ALT Alkaline Phosphatase Total Creatine Kinase CK-MB (Mass) Troponin I, Quant Total Protein Albumin Globulin Albumin/Globulin Ratio 05/17/17 16:37 WBC RBC Hgb Hct MCV MCH MCHC RDW Plt Count MPV Neut % (Auto) Lymph % (Auto) Gila % (Auto) Eos % (Auto) Baso % (Auto) Neut # Lymph # Gila # Eos # Baso # Neutrophils % (Manual) Band Neutrophils % Lymphocytes % (Manual) Monocytes % (Manual) Toxic Granulation Platelet Estimate RBC Morphology PT INR APTT Sodium Potassium Chloride Carbon Dioxide Anion Gap BUN Creatinine Est GFR ( Amer) Est GFR (Non-Af Amer) POC Glucose (mg/dL) 216 H Random Glucose Calcium Phosphorus Magnesium Total Bilirubin AST ALT Alkaline Phosphatase Total Creatine Kinase CK-MB (Mass) Troponin I, Quant Total Protein Albumin Globulin Albumin/Globulin Ratio Assessment & Plan - Assessment and Plan (Free Text) Assessment: emphysematous cholecystitis r/o sepsis may need cholecystotomy GI on board cont iv antibiotic
[2017-05-17] MEDS: Sodium Chloride 0.9% 1,000 ML IV SCH (20:06)
[2017-05-17 20:28] LABS: AMYLASE 57 U/L (30-110); LIPASE 112 U/L (23-300)
[2017-05-18] MEDS: Piperacillin/Tazobact 3.375 GM in Sodium Chloride 100 ML IVPB SCH ×3 (03:27→18:55)
[2017-05-18] MEDS: (Novolin R) Insulin Human Regular 100 units/ml vial SC SCH ×4 (07:30→22:00)
[2017-05-18] MEDS ORDERED: Lidocaine 4% (Laryng-O-Jet) Kit MM ONE ×2 (07:50→08:44)
--- NOTE | 2017-05-18 08:12 | PCM.IRPREO ---
Pre Procedure Note - History Proposed Procedure: Cholecystostomy tube placement Pre-Op Diagnosis: Emphysematous cholecystitis - Previous Medical/Surgical History Endocrine/Metabolic: Diabetes Neuro: TIA/CVA - Pre Procedure Were any radiologic studies performed in the last 12 months: Yes List of radiologic studies performed: CT abdomen, Ultrasound Was medical management performed in the past 24 months: Not Applicable Clinical indication for the procedure: Emphesematous cholecystitis. Have risks and benefits been explained to the patient: Yes Risks and benefits been explained to the patient: Bleeding, liver injury, gallbladder injury, peritonitis. Have alternatives to surgery explained to the patient as applicable: Yes (Pt is not a surgical candidate and cholecystostomy requested. Medical management explained.) - Allergies Allergies: Allergies No Known Allergies Allergy (Verified 05/10/17 09:29) - Physical Exam Vital Signs: Vital Signs 05/18/17 05/18/17 05/18/17 02:13 04:31 06:46 Temperature 98.1 F 98.3 F Pulse Rate 98 H 95 H 98 H Respiratory 20 20 Rate Blood Pressure 138/76 154/76 H O2 Sat by Pulse 96 95 Oximetry 05/18/17 07:03 Temperature Pulse Rate Respiratory Rate Blood Pressure 154/76 H O2 Sat by Pulse Oximetry Mental Status: Alert & Oriented x3 Neuro: WNL Heart: WNL Lungs: WNL - Specialist Directed Exam Abdomen: Other (Tender to palpation RUQ) - Impression Impression: Pt with emphysematous cholecystitis referred for cholecystostomy tube placement. Imaging reviewed and case discussed with patient. Plan cholecystostomy tube placement. Informed consent obtained. - Date & Time Date: 05/18/17 Time: 08:00
[2017-05-18] MEDS ORDERED: Midazolam 2 MG/2 ML VIAL ONE (08:21)
[2017-05-18] MEDS ORDERED: Propofol 10 mg/ml Inj (20 ML) ONE (08:40)
[2017-05-18 08:41] LABS: BASO % 0.2 % (0.0-2.0); HEMOGLOBIN 13.6 g/dL (12.0-18.0); LYMPH # 0.6 K/uL (1.0-4.3); LYMPH % 4.2 % (20.0-40.0); MEAN CELL VOLUME 90.1 fL (80.0-94.0); MEAN CORPUSCULAR HEMOGLOBIN 29.1 pg (27.0-31.0); MEAN CORPUSCULAR HGB CONC 32.4 g/dL (33.0-37.0); MEAN PLATELET VOLUME 8.2 fL (7.2-11.7); MONO # 1.6 K/uL (0.0-0.8); MONO % 12.3 % (0.0-10.0); NEUT # 10.9 K/uL (1.8-7.0); NEUT % 83.3 % (50.0-75.0); PLATELET COUNT 179 K/uL (130-400); RBC 4.68 Mil/uL (4.40-5.90); RED CELL DISTRIBUTION WIDTH 14.6 % (11.5-14.5); WHITE BLOOD COUNT 13.1 K/uL (4.8-10.8)
--- NOTE | 2017-05-18 08:55 | CP.PCM.PN ---
Subjective - Date & Time of Evaluation Date of Evaluation: 05/18/17 Time of Evaluation: 06:35 - Subjective Subjective: General Sx progress note for Dr. Marisela Ortega, PGY-1 Pt S & E at bedside. Pt continues with RUQ pain overnight. Denies N/V/F/C, SOB, CP. Pt NPO since MN. Objective - Vital Signs/Intake and Output Vital Signs (last 24 hours): Temp Pulse Resp BP Pulse Ox 98.5 F 70 20 132/85 98 05/18/17 08:41 05/18/17 08:41 05/18/17 08:41 05/18/17 08:41 05/18/17 08:41 - Medications Medications: Current Medications Acetaminophen (Tylenol 325mg Tab) 650 mg PO Q6 PRN PRN Reason: Fever >100.4 F Last Admin: 05/10/17 18:58 Dose: 650 mg Clopidogrel Bisulfate (Plavix) 75 mg PO DAILY [facility] Last Admin: 05/17/17 10:18 Dose: 75 mg Dipyridamole/Aspirin (Aggrenox 25-200 Mg) 1 ea PO BID [facility] Last Admin: 05/17/17 23:19 Dose: 1 ea Famotidine (Pepcid) 20 mg IVP Q12 [facility] Last Admin: 05/17/17 23:21 Dose: 20 mg Glimepiride (Amaryl) 4 mg PO DAILY [facility] Last Admin: 05/17/17 10:18 Dose: 4 mg Guaifenesin (Robitussin) 200 mg PO Q6 PRN PRN Reason: Cough and congestion Last Admin: 05/16/17 10:01 Dose: 200 mg Piperacillin Sod/Tazobactam (Sod 3.375 gm/ Sodium Chloride) 100 mls @ 200 mls/ hr IVPB Q8H [facility] Last Admin: 05/18/17 03:27 Dose: 200 mls/hr Sodium Chloride (Sodium Chloride 0.9%) 1,000 mls @ 100 mls/hr IV .Q10H [facility] Last Admin: 05/17/17 20:06 Dose: 100 mls/hr Insulin Human Regular (Novolin R) 0 unit SC ACHS [facility] PRN Reason: Protocol Last Admin: 05/17/17 23:20 Dose: Not Given Metoprolol Tartrate (Lopressor) 25 mg PO Q12 [facility] Last Admin: 05/18/17 07:03 Dose: 25 mg Ondansetron HCl (Zofran Inj) 4 mg IVP Q6H PRN PRN Reason: Nausea/Vomiting Last Admin: 05/16/17 16:53 Dose: 4 mg Ondansetron HCl (Zofran Inj) 4 mg IVP DAILY@ONCE PRN PRN Reason: Nausea vomiting Last Admin: 05/16/17 20:55 Dose: 4 mg Rosuvastatin Calcium (Crestor) 10 mg PO HS [facility] Last Admin: 05/17/17 23:20 Dose: 10 mg - Labs Labs: 05/18/17 08:34 05/17/17 04:26 PT 13.2 SECONDS (9.7-12.2) H 05/17/17 07:11 INR 1.2 05/17/17 07:11 APTT 71 SECONDS (21-34) H 05/17/17 07:11 - Constitutional Appears: Non-toxic, No Acute Distress - Head Exam Head Exam: ATRAUMATIC, NORMAL INSPECTION, NORMOCEPHALIC - Eye Exam Eye Exam: EOMI, Normal appearance - ENT Exam ENT Exam: Mucous Membranes Moist, Normal Exam - Neck Exam Neck Exam: Full ROM, Normal Inspection - Respiratory Exam Respiratory Exam: Clear to Ausculation Bilateral, NORMAL BREATHING PATTERN. absent: Rales, Rhonchi, Wheezes - Cardiovascular Exam Cardiovascular Exam: REGULAR RHYTHM, +S1, +S2 - GI/Abdominal Exam GI & Abdominal Exam: Guarding, Soft, Tenderness (RUQ with increased temperature) , Hernia (umbilical w/large diastasis). absent: Distended (obese), Firm, Mass, Rebound - Extremities Exam Extremities Exam: Normal Inspection - Neurological Exam Neurological Exam: Alert, Awake, CN II-XII Intact, Oriented x3 - Psychiatric Exam Psychiatric exam: Normal Affect, Normal Mood - Skin Skin Exam: Dry, Intact, Normal Color, Warm Assessment and Plan - Assessment and Plan (Free Text) Assessment: 77M w/sepsis 2/2 cholecystitis. Plan: for perc armando tube today following ALE Ok to advance diet after procedures OOBTC PT/OT IS Cont ABx Cont IVF Will DW attending Shannon, PGY-1
--- NOTE | 2017-05-18 08:59 | PCM.SURG1 ---
Surgeon's Initial Post Op Note - Surgeon's Notes Surgeon: Sea Vale MD Battery Tester: NONE Type of Anesthesia: IV Sedation Pre-Operative Diagnosis: Cholecystitis Operative Findings: Complex GB with air Post-Operative Diagnosis: Cholecystitis Operation Performed: 8.5 Fr Cholecystostomy tube placement. Specimen/Specimens Removed: 20 cc of slightly bloody purulent bile Estimated Blood Loss: EBL {In ML}: 0 Blood Products Given: N/A Drains Used: Wilson Metz Post-Op Condition: Fair Date of Surgery/Procedure: 05/18/17 Time of Surgery/Procedure: 08:35
[2017-05-18 09:05] LABS: ALBUMIN 3.7 g/dL (3.5-5.0)
[2017-05-18 09:08] LABS: ALB/GLOB RATIO 1.1 (1.0-2.1)
[2017-05-18 09:09] LABS: CALCIUM 9.2 mg/dl (8.6-10.4)
[2017-05-18] MEDS: Aspirin-Dipyridamole 200-25 mg ER Cap PO SCH ×2 (10:30→21:57)
[2017-05-18 10:39] LABS: BANDS 3 % (0-2); LYMPHOCYTE 2 % (20-40); MONOCYTE 12 % (0-10); NEUTROPHIL 82 % (50-75); PLATELET ESTIMATE NORMAL (NORMAL); REACTIVE LYMPHOCYTES 1 % (0-0); TOTAL CELLS COUNTED 100
--- NOTE | 2017-05-18 11:45 | US ---
PROCEDURE: Date of procedure: 05/18/2017 Procedure: 1. Percutaneous Cholecystostomy tube placement Medications: The patient was sedated by the anesthesiologist along with physiologic monitoring. 8 cubic centimeters lidocaine 2 percent HISTORY: Emphysematous cholecystitis, poor surgical candidate. TECHNIQUE: Following informed consent the patient right abdomen was marked. The patient was placed supine on the interventional table and procedure time-out was called. Ultrasound showed distended gallbladder. At the patient sedated, the skin was anesthetized with 2 percent lidocaine. Under direct ultrasound guidance, a Ovuline catheter was advanced percutaneously into the gallbladder. Upon return of bile, an 035 wire was advanced into the gallbladder. The tract was dilated to accommodate 8.5 Polish drainage catheter which was formed within the gallbladder. The catheter was secured to patient's renogram IMPRESSION: Percutaneous placement of a 8.5 fr cholecystostomy tube.
[2017-05-18] MEDS: Sodium Chloride 0.9% 1,000 ML IV SCH (11:51)
--- NOTE | 2017-05-18 15:05 | CP.PCM.PN ---
Subjective - Date & Time of Evaluation Date of Evaluation: 05/18/17 Time of Evaluation: 07:05 - Subjective Subjective: SEEN WITH HIS HIS LEFT HAND IS NUMB AND MILD WEAKNESS AND NOT PROGRESSIVE. EXAM IS UNCHANGED HE IS SCHEDULED FOR ABDOMINAL PROCEDURES ALE IS PENDING PATIENT IS THROWING CLOTS FROM [employer] SOURCE. HE SHOULD GET ALE PRIOR TO THE OTHER PROCEDURES WHICH WERE NOT LIFE THERATEANING ON AGGRENOX AND PLAVIX Objective - Vital Signs/Intake and Output Vital Signs (last 24 hours): Temp Pulse Resp BP Pulse Ox 98.5 F 70 20 132/85 98 05/18/17 08:41 05/18/17 08:41 05/18/17 08:41 05/18/17 08:41 05/18/17 08:41 - Medications Medications: Current Medications Acetaminophen (Tylenol 325mg Tab) 650 mg PO Q6 PRN PRN Reason: Fever >100.4 F Last Admin: 05/10/17 18:58 Dose: 650 mg Clopidogrel Bisulfate (Plavix) 75 mg PO DAILY [facility] Last Admin: 05/18/17 10:30 Dose: Not Given Dipyridamole/Aspirin (Aggrenox 25-200 Mg) 1 ea PO BID [facility] Last Admin: 05/18/17 10:30 Dose: Not Given Famotidine (Pepcid) 20 mg IVP Q12 [facility] Last Admin: 05/18/17 10:30 Dose: 20 mg Glimepiride (Amaryl) 4 mg PO DAILY [facility] Last Admin: 05/18/17 10:30 Dose: Not Given Guaifenesin (Robitussin) 200 mg PO Q6 PRN PRN Reason: Cough and congestion Last Admin: 05/16/17 10:01 Dose: 200 mg Piperacillin Sod/Tazobactam (Sod 3.375 gm/ Sodium Chloride) 100 mls @ 200 mls/ hr IVPB Q8H [facility] Last Admin: 05/18/17 11:50 Dose: 200 mls/hr Sodium Chloride (Sodium Chloride 0.9%) 1,000 mls @ 100 mls/hr IV .Q10H [facility] Last Admin: 05/18/17 11:51 Dose: 100 mls/hr Insulin Human Regular (Novolin R) 0 unit SC ACHS [facility] PRN Reason: Protocol Last Admin: 05/18/17 13:01 Dose: 2 unit Metoprolol Tartrate (Lopressor) 25 mg PO Q12 [facility] Last Admin: 05/18/17 10:30 Dose: Not Given Ondansetron HCl (Zofran Inj) 4 mg IVP Q6H PRN PRN Reason: Nausea/Vomiting Last Admin: 05/16/17 16:53 Dose: 4 mg Ondansetron HCl (Zofran Inj) 4 mg IVP DAILY@ONCE PRN PRN Reason: Nausea vomiting Last Admin: 05/16/17 20:55 Dose: 4 mg Rosuvastatin Calcium (Crestor) 10 mg PO HS [facility] Last Admin: 05/17/17 23:20 Dose: 10 mg - Labs Labs: 05/18/17 08:34 05/18/17 08:34 PT 13.2 SECONDS (9.7-12.2) H 05/17/17 07:11 INR 1.2 05/17/17 07:11 APTT 71 SECONDS (21-34) H 05/17/17 07:11 Assessment and Plan (1) Stroke (cerebrum) Status: Acute
--- NOTE | 2017-05-18 15:17 | CP.PCM.PN ---
Subjective - Date & Time of Evaluation Date of Evaluation: 05/18/17 Time of Evaluation: 08:00 - Subjective Subjective: pain relieved s/p cholecystotomy afebrile alert NAD Objective - Vital Signs/Intake and Output Vital Signs (last 24 hours): Temp Pulse Resp BP Pulse Ox 98.5 F 103 H 20 132/85 98 05/18/17 08:41 05/18/17 13:14 05/18/17 08:41 05/18/17 08:41 05/18/17 08:41 Intake and Output: 05/18/17 05/18/17 06:59 18:59 Intake Total 775 Balance 775 - Medications Medications: Current Medications Acetaminophen (Tylenol 325mg Tab) 650 mg PO Q6 PRN PRN Reason: Fever >100.4 F Last Admin: 05/10/17 18:58 Dose: 650 mg Clopidogrel Bisulfate (Plavix) 75 mg PO DAILY [facility] Last Admin: 05/18/17 10:30 Dose: Not Given Dipyridamole/Aspirin (Aggrenox 25-200 Mg) 1 ea PO BID [facility] Last Admin: 05/18/17 10:30 Dose: Not Given Famotidine (Pepcid) 20 mg IVP Q12 [facility] Last Admin: 05/18/17 10:30 Dose: 20 mg Glimepiride (Amaryl) 4 mg PO DAILY [facility] Last Admin: 05/18/17 10:30 Dose: Not Given Guaifenesin (Robitussin) 200 mg PO Q6 PRN PRN Reason: Cough and congestion Last Admin: 05/16/17 10:01 Dose: 200 mg Piperacillin Sod/Tazobactam (Sod 3.375 gm/ Sodium Chloride) 100 mls @ 200 mls/ hr IVPB Q8H [facility] Last Admin: 05/18/17 11:50 Dose: 200 mls/hr Sodium Chloride (Sodium Chloride 0.9%) 1,000 mls @ 100 mls/hr IV .Q10H [facility] Last Admin: 05/18/17 11:51 Dose: 100 mls/hr Insulin Human Regular (Novolin R) 0 unit SC ACHS [facility] PRN Reason: Protocol Last Admin: 05/18/17 13:01 Dose: 2 unit Metoprolol Tartrate (Lopressor) 25 mg PO Q12 [facility] Last Admin: 05/18/17 10:30 Dose: Not Given Ondansetron HCl (Zofran Inj) 4 mg IVP Q6H PRN PRN Reason: Nausea/Vomiting Last Admin: 05/16/17 16:53 Dose: 4 mg Ondansetron HCl (Zofran Inj) 4 mg IVP DAILY@ONCE PRN PRN Reason: Nausea vomiting Last Admin: 05/16/17 20:55 Dose: 4 mg Rosuvastatin Calcium (Crestor) 10 mg PO HS [facility] Last Admin: 05/17/17 23:20 Dose: 10 mg - Labs Labs: 05/18/17 08:34 05/18/17 08:34 PT 13.2 SECONDS (9.7-12.2) H 05/17/17 07:11 INR 1.2 05/17/17 07:11 APTT 71 SECONDS (21-34) H 05/17/17 07:11 - Constitutional Appears: Non-toxic, Chronically Ill - Head Exam Head Exam: NORMOCEPHALIC - Eye Exam Eye Exam: PERRL - ENT Exam ENT Exam: Mucous Membranes Dry - Neck Exam Neck Exam: absent: Lymphadenopathy - Respiratory Exam Respiratory Exam: Decreased Breath Sounds, Clear to Ausculation Bilateral - Cardiovascular Exam Cardiovascular Exam: REGULAR RHYTHM - GI/Abdominal Exam GI & Abdominal Exam: Distended, Soft. absent: Tenderness - Rectal Exam Rectal Exam: Deferred - Exam Exam: NORMAL INSPECTION - Extremities Exam Extremities Exam: absent: Calf Tenderness, Pedal Edema - Back Exam Back Exam: absent: CVA tenderness (L), CVA tenderness (R) - Neurological Exam Neurological Exam: Alert, Awake, Oriented x3 - Psychiatric Exam Psychiatric exam: Normal Mood - Skin Skin Exam: Dry Assessment and Plan - Assessment and Plan (Free Text) Assessment: s/p cholecystotomy cholecystitis cont IV antibiotics
--- NOTE | 2017-05-18 18:25 | CP.PCM.PN ---
Subjective - Date & Time of Evaluation Date of Evaluation: 05/18/17 Time of Evaluation: 18:25 Objective - Vital Signs/Intake and Output Vital Signs (last 24 hours): Temp Pulse Resp BP Pulse Ox 99.1 F 94 H 20 132/66 95 05/18/17 17:50 05/18/17 17:50 05/18/17 17:50 05/18/17 17:50 05/18/17 17:50 Intake and Output: 05/18/17 05/18/17 06:59 18:59 Intake Total 775 Balance 775 - Medications Medications: Current Medications Acetaminophen (Tylenol 325mg Tab) 650 mg PO Q6 PRN PRN Reason: Fever >100.4 F Last Admin: 05/10/17 18:58 Dose: 650 mg Clopidogrel Bisulfate (Plavix) 75 mg PO DAILY [facility] Last Admin: 05/18/17 10:30 Dose: Not Given Dipyridamole/Aspirin (Aggrenox 25-200 Mg) 1 ea PO BID [facility] Last Admin: 05/18/17 10:30 Dose: Not Given Famotidine (Pepcid) 20 mg IVP Q12 [facility] Last Admin: 05/18/17 10:30 Dose: 20 mg Glimepiride (Amaryl) 4 mg PO DAILY [facility] Last Admin: 05/18/17 10:30 Dose: Not Given Guaifenesin (Robitussin) 200 mg PO Q6 PRN PRN Reason: Cough and congestion Last Admin: 05/16/17 10:01 Dose: 200 mg Piperacillin Sod/Tazobactam (Sod 3.375 gm/ Sodium Chloride) 100 mls @ 200 mls/ hr IVPB Q8H [facility] Last Admin: 05/18/17 11:50 Dose: 200 mls/hr Sodium Chloride (Sodium Chloride 0.9%) 1,000 mls @ 100 mls/hr IV .Q10H [facility] Last Admin: 05/18/17 11:51 Dose: 100 mls/hr Insulin Human Regular (Novolin R) 0 unit SC ACHS [facility] PRN Reason: Protocol Last Admin: 05/18/17 13:01 Dose: 2 unit Metoprolol Tartrate (Lopressor) 25 mg PO Q12 [facility] Last Admin: 05/18/17 10:30 Dose: Not Given Ondansetron HCl (Zofran Inj) 4 mg IVP Q6H PRN PRN Reason: Nausea/Vomiting Last Admin: 05/16/17 16:53 Dose: 4 mg Ondansetron HCl (Zofran Inj) 4 mg IVP DAILY@ONCE PRN PRN Reason: Nausea vomiting Last Admin: 05/16/17 20:55 Dose: 4 mg Rosuvastatin Calcium (Crestor) 10 mg PO HS [facility] Last Admin: 05/17/17 23:20 Dose: 10 mg - Labs Labs: 05/18/17 08:34 05/18/17 08:34 PT 13.2 SECONDS (9.7-12.2) H 05/17/17 07:11 INR 1.2 05/17/17 07:11 APTT 71 SECONDS (21-34) H 05/17/17 07:11
--- NOTE | 2017-05-18 22:27 | CP.PCM.PN ---
Subjective - Date & Time of Evaluation Date of Evaluation: 05/18/17 Time of Evaluation: 10:00 - Subjective Subjective: Patient s/p ALE Normal LV function No intra cardiac clot noted No bubble cross over Full report to follow Objective - Vital Signs/Intake and Output Vital Signs (last 24 hours): Temp Pulse Resp BP Pulse Ox 99.1 F 94 H 20 109/70 95 05/18/17 17:50 05/18/17 17:50 05/18/17 17:50 05/18/17 21:57 05/18/17 17:50 Intake and Output: 05/18/17 05/19/17 18:59 06:59 Intake Total 775 Balance 775 - Medications Medications: Current Medications Acetaminophen (Tylenol 325mg Tab) 650 mg PO Q6 PRN PRN Reason: Fever >100.4 F Last Admin: 05/10/17 18:58 Dose: 650 mg Clopidogrel Bisulfate (Plavix) 75 mg PO DAILY [facility] Last Admin: 05/18/17 10:30 Dose: Not Given Dipyridamole/Aspirin (Aggrenox 25-200 Mg) 1 ea PO BID [facility] Last Admin: 05/18/17 21:57 Dose: 1 ea Famotidine (Pepcid) 20 mg IVP Q12 [facility] Last Admin: 05/18/17 21:58 Dose: 20 mg Glimepiride (Amaryl) 4 mg PO DAILY [facility] Last Admin: 05/18/17 10:30 Dose: Not Given Guaifenesin (Robitussin) 200 mg PO Q6 PRN PRN Reason: Cough and congestion Last Admin: 05/16/17 10:01 Dose: 200 mg Piperacillin Sod/Tazobactam (Sod 3.375 gm/ Sodium Chloride) 100 mls @ 200 mls/ hr IVPB Q8H [facility] Last Admin: 05/18/17 18:55 Dose: 200 mls/hr Sodium Chloride (Sodium Chloride 0.9%) 1,000 mls @ 100 mls/hr IV .Q10H [facility] Last Admin: 05/18/17 11:51 Dose: 100 mls/hr Insulin Human Regular (Novolin R) 0 unit SC ACHS [facility] PRN Reason: Protocol Last Admin: 05/18/17 18:55 Dose: 3 unit Metoprolol Tartrate (Lopressor) 25 mg PO Q12 [facility] Last Admin: 05/18/17 21:57 Dose: 25 mg Ondansetron HCl (Zofran Inj) 4 mg IVP Q6H PRN PRN Reason: Nausea/Vomiting Last Admin: 05/16/17 16:53 Dose: 4 mg Ondansetron HCl (Zofran Inj) 4 mg IVP DAILY@ONCE PRN PRN Reason: Nausea vomiting Last Admin: 05/16/17 20:55 Dose: 4 mg Rosuvastatin Calcium (Crestor) 10 mg PO HS [facility] Last Admin: 05/18/17 21:57 Dose: 10 mg - Labs Labs: 05/18/17 08:34 05/18/17 08:34 PT 13.2 SECONDS (9.7-12.2) H 05/17/17 07:11 INR 1.2 05/17/17 07:11 APTT 71 SECONDS (21-34) H 05/17/17 07:11
[2017-05-19] MEDS: Sodium Chloride 0.9% 1,000 ML IV SCH ×4 (01:00→21:48)
[2017-05-19] MEDS: Piperacillin/Tazobact 3.375 GM in Sodium Chloride 100 ML IVPB SCH ×3 (02:37→18:17)
[2017-05-19 06:46] LABS: BASO % 0.1 % (0.0-2.0); EOS # 0.1 K/uL (0.0-0.7); EOS % 1.3 % (0.0-4.0); HEMOGLOBIN 11.7 g/dL (12.0-18.0); LYMPH # 0.6 K/uL (1.0-4.3); LYMPH % 8.9 % (20.0-40.0); MEAN CELL VOLUME 92.1 fL (80.0-94.0); MEAN CORPUSCULAR HEMOGLOBIN 29.2 pg (27.0-31.0); MEAN CORPUSCULAR HGB CONC 31.7 g/dL (33.0-37.0); MEAN PLATELET VOLUME 8.1 fL (7.2-11.7); MONO # 0.9 K/uL (0.0-0.8); MONO % 14.9 % (0.0-10.0); NEUT # 4.8 K/uL (1.8-7.0); NEUT % 74.8 % (50.0-75.0); PLATELET COUNT 146 K/uL (130-400); RBC 4.02 Mil/uL (4.40-5.90); RED CELL DISTRIBUTION WIDTH 14.7 % (11.5-14.5); WHITE BLOOD COUNT 6.4 K/uL (4.8-10.8)
[2017-05-19 07:00] LABS: CALCIUM 8.3 mg/dl (8.6-10.4)
[2017-05-19 08:29] LABS: EOSINOPHIL 1 % (0-4); NEUTROPHIL 77 % (50-75); TOTAL CELLS COUNTED 100
[2017-05-19 08:30] LABS: ANISOCYTOSIS SLIGHT; LYMPHOCYTE 9 % (20-40); MONOCYTE 13 % (0-10); PLATELET ESTIMATE NORMAL (NORMAL)
[2017-05-19 08:31] LABS: LARGE PLATELETS PRESENT
--- NOTE | 2017-05-19 08:38 | CP.PCM.PN ---
Subjective - Date & Time of Evaluation Date of Evaluation: 05/19/17 Time of Evaluation: 06:05 - Subjective Subjective: General Surgery Dr. Delacruz Pt S&E @bedside. NAEO. armando tube placed yesterday by IR. pt tolerated procedure well. 120cc output since placement. c/o n/v, abd pain w/ mvt. denies f /c. tolerating diet. Objective - Vital Signs/Intake and Output Vital Signs (last 24 hours): Temp Pulse Resp BP Pulse Ox 98.6 F 83 20 128/55 L 96 05/18/17 23:00 05/19/17 03:51 05/18/17 23:00 05/18/17 23:00 05/18/17 23:00 Intake and Output: 05/19/17 05/19/17 06:59 18:59 Intake Total 2300 Output Total 120 Balance 2180 - Medications Medications: Current Medications Acetaminophen (Tylenol 325mg Tab) 650 mg PO Q6 PRN PRN Reason: Fever >100.4 F Last Admin: 05/19/17 04:44 Dose: 650 mg Clopidogrel Bisulfate (Plavix) 75 mg PO DAILY [facility] Last Admin: 05/18/17 10:30 Dose: Not Given Dipyridamole/Aspirin (Aggrenox 25-200 Mg) 1 ea PO BID [facility] Last Admin: 05/18/17 21:57 Dose: 1 ea Famotidine (Pepcid) 20 mg IVP Q12 [facility] Last Admin: 05/18/17 21:58 Dose: 20 mg Glimepiride (Amaryl) 4 mg PO DAILY [facility] Last Admin: 05/18/17 10:30 Dose: Not Given Guaifenesin (Robitussin) 200 mg PO Q6 PRN PRN Reason: Cough and congestion Last Admin: 05/16/17 10:01 Dose: 200 mg Piperacillin Sod/Tazobactam (Sod 3.375 gm/ Sodium Chloride) 100 mls @ 200 mls/ hr IVPB Q8H [facility] Last Admin: 05/19/17 02:37 Dose: 200 mls/hr Sodium Chloride (Sodium Chloride 0.9%) 1,000 mls @ 100 mls/hr IV .Q10H [facility] Last Admin: 05/19/17 01:00 Dose: 100 mls/hr Insulin Human Regular (Novolin R) 0 unit SC ACHS [facility] PRN Reason: Protocol Last Admin: 05/18/17 22:00 Dose: Not Given Metoprolol Tartrate (Lopressor) 25 mg PO Q12 [facility] Last Admin: 05/18/17 21:57 Dose: 25 mg Ondansetron HCl (Zofran Inj) 4 mg IVP Q6H PRN PRN Reason: Nausea/Vomiting Last Admin: 05/16/17 16:53 Dose: 4 mg Ondansetron HCl (Zofran Inj) 4 mg IVP DAILY@ONCE PRN PRN Reason: Nausea vomiting Last Admin: 05/16/17 20:55 Dose: 4 mg Rosuvastatin Calcium (Crestor) 10 mg PO HS [facility] Last Admin: 05/18/17 21:57 Dose: 10 mg - Labs Labs: 05/19/17 06:33 05/19/17 06:33 PT 13.2 SECONDS (9.7-12.2) H 05/17/17 07:11 INR 1.2 05/17/17 07:11 APTT 71 SECONDS (21-34) H 05/17/17 07:11 - Constitutional Appears: Non-toxic, No Acute Distress - Head Exam Head Exam: NORMAL INSPECTION - Eye Exam Eye Exam: Normal appearance - ENT Exam ENT Exam: Mucous Membranes Moist - Respiratory Exam Respiratory Exam: NORMAL BREATHING PATTERN. absent: Accessory Muscle Use, Respiratory Distress - Cardiovascular Exam Cardiovascular Exam: absent: Bradycardia, Tachycardia - GI/Abdominal Exam GI & Abdominal Exam: Distended (minimal), Soft, Tenderness (TTP RUQ). absent: Firm, Guarding, Rigid, Rebound Additional comments: IR drain in place - Neurological Exam Neurological Exam: Alert, Awake, Oriented x3 - Psychiatric Exam Psychiatric exam: Normal Affect, Normal Mood - Skin Skin Exam: Dry, Intact, Normal Color, Warm Assessment and Plan - Assessment and Plan (Free Text) Assessment: 77 y/o M w/ sepsis 2/2 cholecystitis. - Cont IV Abx - Cont IVF - pain management - f/u bile Cx - OOB to chair/Amb/IS use - PT/OT - GI/DVT PPx Pt discussed w/ Dr. Jayme Gilliam PGY2
[2017-05-19] MEDS: (Novolin R) Insulin Human Regular 100 units/ml vial SC SCH ×4 (09:16→22:00)
[2017-05-19] MEDS: Aspirin-Dipyridamole 200-25 mg ER Cap PO SCH ×2 (10:48→17:46)
--- NOTE | 2017-05-19 10:57 | CP.PCM.PN ---
Subjective - Date & Time of Evaluation Date of Evaluation: 05/19/17 Time of Evaluation: 10:57 - Subjective Subjective: much improved Objective - Vital Signs/Intake and Output Vital Signs (last 24 hours): Temp Pulse Resp BP Pulse Ox 98 F 85 20 135/73 97 05/19/17 08:00 05/19/17 10:46 05/19/17 08:00 05/19/17 10:47 05/19/17 08:00 Intake and Output: 05/19/17 05/19/17 06:59 18:59 Intake Total 2300 Output Total 120 Balance 2180 - Medications Medications: Current Medications Acetaminophen (Tylenol 325mg Tab) 650 mg PO Q6 PRN PRN Reason: Fever >100.4 F Last Admin: 05/19/17 04:44 Dose: 650 mg Clopidogrel Bisulfate (Plavix) 75 mg PO DAILY [facility] Last Admin: 05/19/17 10:48 Dose: 75 mg Dipyridamole/Aspirin (Aggrenox 25-200 Mg) 1 ea PO BID [facility] Last Admin: 05/19/17 10:48 Dose: 1 ea Famotidine (Pepcid) 20 mg IVP Q12 [facility] Last Admin: 05/19/17 10:48 Dose: 20 mg Glimepiride (Amaryl) 4 mg PO DAILY [facility] Last Admin: 05/19/17 10:48 Dose: 4 mg Guaifenesin (Robitussin) 200 mg PO Q6 PRN PRN Reason: Cough and congestion Last Admin: 05/16/17 10:01 Dose: 200 mg Piperacillin Sod/Tazobactam (Sod 3.375 gm/ Sodium Chloride) 100 mls @ 200 mls/ hr IVPB Q8H [facility] Last Admin: 05/19/17 10:47 Dose: 200 mls/hr Sodium Chloride (Sodium Chloride 0.9%) 1,000 mls @ 100 mls/hr IV .Q10H [facility] Last Admin: 05/19/17 01:00 Dose: 100 mls/hr Insulin Human Regular (Novolin R) 0 unit SC ACHS [facility] PRN Reason: Protocol Last Admin: 05/19/17 09:16 Dose: 2 unit Metoprolol Tartrate (Lopressor) 25 mg PO Q12 [facility] Last Admin: 05/19/17 10:47 Dose: 25 mg Ondansetron HCl (Zofran Inj) 4 mg IVP Q6H PRN PRN Reason: Nausea/Vomiting Last Admin: 05/16/17 16:53 Dose: 4 mg Ondansetron HCl (Zofran Inj) 4 mg IVP DAILY@ONCE PRN PRN Reason: Nausea vomiting Last Admin: 05/16/17 20:55 Dose: 4 mg Rosuvastatin Calcium (Crestor) 10 mg PO HS [facility] Last Admin: 05/18/17 21:57 Dose: 10 mg - Labs Labs: 05/19/17 06:33 05/19/17 06:33 PT 13.2 SECONDS (9.7-12.2) H 05/17/17 07:11 INR 1.2 05/17/17 07:11 APTT 71 SECONDS (21-34) H 05/17/17 07:11
--- NOTE | 2017-05-19 12:48 | CP.PCM.PN ---
Subjective - Date & Time of Evaluation Date of Evaluation: 05/19/17 Time of Evaluation: 12:47 - Subjective Subjective: Pt seen and examined S/p Cholecystostomy tube placed by IR Awake and alert Objective - Vital Signs/Intake and Output Vital Signs (last 24 hours): Temp Pulse Resp BP Pulse Ox 98 F 85 20 135/73 97 05/19/17 08:00 05/19/17 10:46 05/19/17 08:00 05/19/17 10:47 05/19/17 08:00 Intake and Output: 05/19/17 05/19/17 06:59 18:59 Intake Total 2300 Output Total 120 Balance 2180 - Medications Medications: Current Medications Acetaminophen (Tylenol 325mg Tab) 650 mg PO Q6 PRN PRN Reason: Fever >100.4 F Last Admin: 05/19/17 04:44 Dose: 650 mg Clopidogrel Bisulfate (Plavix) 75 mg PO DAILY [facility] Last Admin: 05/19/17 10:48 Dose: 75 mg Dipyridamole/Aspirin (Aggrenox 25-200 Mg) 1 ea PO BID [facility] Last Admin: 05/19/17 10:48 Dose: 1 ea Famotidine (Pepcid) 20 mg IVP Q12 [facility] Last Admin: 05/19/17 10:48 Dose: 20 mg Glimepiride (Amaryl) 4 mg PO DAILY [facility] Last Admin: 05/19/17 10:48 Dose: 4 mg Guaifenesin (Robitussin) 200 mg PO Q6 PRN PRN Reason: Cough and congestion Last Admin: 05/16/17 10:01 Dose: 200 mg Piperacillin Sod/Tazobactam (Sod 3.375 gm/ Sodium Chloride) 100 mls @ 200 mls/ hr IVPB Q8H [facility] Last Admin: 05/19/17 10:47 Dose: 200 mls/hr Sodium Chloride (Sodium Chloride 0.9%) 1,000 mls @ 100 mls/hr IV .Q10H [facility] Last Admin: 05/19/17 01:00 Dose: 100 mls/hr Insulin Human Regular (Novolin R) 0 unit SC ACHS [facility] PRN Reason: Protocol Last Admin: 05/19/17 09:16 Dose: 2 unit Metoprolol Tartrate (Lopressor) 25 mg PO Q12 [facility] Last Admin: 05/19/17 10:47 Dose: 25 mg Ondansetron HCl (Zofran Inj) 4 mg IVP Q6H PRN PRN Reason: Nausea/Vomiting Last Admin: 05/16/17 16:53 Dose: 4 mg Ondansetron HCl (Zofran Inj) 4 mg IVP DAILY@ONCE PRN PRN Reason: Nausea vomiting Last Admin: 05/16/17 20:55 Dose: 4 mg Rosuvastatin Calcium (Crestor) 10 mg PO HS [facility] Last Admin: 05/18/17 21:57 Dose: 10 mg - Labs Labs: 05/19/17 06:33 05/19/17 06:33 PT 13.2 SECONDS (9.7-12.2) H 05/17/17 07:11 INR 1.2 05/17/17 07:11 APTT 71 SECONDS (21-34) H 05/17/17 07:11 - Head Exam Head Exam: ATRAUMATIC, NORMAL INSPECTION, NORMOCEPHALIC - Eye Exam Eye Exam: Normal appearance - ENT Exam ENT Exam: Mucous Membranes Moist - Respiratory Exam Respiratory Exam: Clear to Ausculation Bilateral, NORMAL BREATHING PATTERN - Cardiovascular Exam Cardiovascular Exam: REGULAR RHYTHM, +S1, +S2 - GI/Abdominal Exam GI & Abdominal Exam: Soft, Normal Bowel Sounds - Skin Skin Exam: Normal Color, Warm Assessment and Plan - Assessment and Plan (Free Text) Assessment: Acute Cholecystitis Acute CVA HTN DM s/p Cholecystostomy Continue Abx Surgery follow up OOB to chair PT/OT Aggrenox and plavix Follow cultures Neuro on board Accucheck BP control DVT/GI prophalaxis
--- NOTE | 2017-05-19 14:23 | CP.PCM.PN ---
Subjective - Date & Time of Evaluation Date of Evaluation: 05/19/17 Time of Evaluation: 14:21 - Subjective Subjective: MORE AWAKE AND ALERT ' NO NEW EPISODES CASE DISCUSSED WITH DR KNOX AND PMD ALE NEGATIVE BUT HE MAY NEED REPEAT BUBBLE STUDY NEAR FUTURE MEAN TIME CONTINUE THE PRESENT MANAGEMENT Objective - Vital Signs/Intake and Output Vital Signs (last 24 hours): Temp Pulse Resp BP Pulse Ox 98 F 85 20 135/73 97 05/19/17 08:00 05/19/17 10:46 05/19/17 08:00 05/19/17 10:47 05/19/17 08:00 Intake and Output: 05/19/17 05/19/17 06:59 18:59 Intake Total 2300 Output Total 120 Balance 2180 - Medications Medications: Current Medications Acetaminophen (Tylenol 325mg Tab) 650 mg PO Q6 PRN PRN Reason: Fever >100.4 F Last Admin: 05/19/17 04:44 Dose: 650 mg Clopidogrel Bisulfate (Plavix) 75 mg PO DAILY [facility] Last Admin: 05/19/17 10:48 Dose: 75 mg Dipyridamole/Aspirin (Aggrenox 25-200 Mg) 1 ea PO BID [facility] Last Admin: 05/19/17 10:48 Dose: 1 ea Famotidine (Pepcid) 20 mg IVP Q12 [facility] Last Admin: 05/19/17 10:48 Dose: 20 mg Glimepiride (Amaryl) 4 mg PO DAILY [facility] Last Admin: 05/19/17 10:48 Dose: 4 mg Guaifenesin (Robitussin) 200 mg PO Q6 PRN PRN Reason: Cough and congestion Last Admin: 05/16/17 10:01 Dose: 200 mg Piperacillin Sod/Tazobactam (Sod 3.375 gm/ Sodium Chloride) 100 mls @ 200 mls/ hr IVPB Q8H [facility] Last Admin: 05/19/17 10:47 Dose: 200 mls/hr Sodium Chloride (Sodium Chloride 0.9%) 1,000 mls @ 100 mls/hr IV .Q10H [facility] Last Admin: 05/19/17 01:00 Dose: 100 mls/hr Insulin Human Regular (Novolin R) 0 unit SC ACHS [facility] PRN Reason: Protocol Last Admin: 05/19/17 13:30 Dose: 2 unit Metoprolol Tartrate (Lopressor) 25 mg PO Q12 [facility] Last Admin: 05/19/17 10:47 Dose: 25 mg Ondansetron HCl (Zofran Inj) 4 mg IVP Q6H PRN PRN Reason: Nausea/Vomiting Last Admin: 05/16/17 16:53 Dose: 4 mg Ondansetron HCl (Zofran Inj) 4 mg IVP DAILY@ONCE PRN PRN Reason: Nausea vomiting Last Admin: 05/16/17 20:55 Dose: 4 mg Rosuvastatin Calcium (Crestor) 10 mg PO HS [facility] Last Admin: 05/18/17 21:57 Dose: 10 mg - Labs Labs: 05/19/17 06:33 05/19/17 06:33 PT 13.2 SECONDS (9.7-12.2) H 05/17/17 07:11 INR 1.2 05/17/17 07:11 APTT 71 SECONDS (21-34) H 05/17/17 07:11 Assessment and Plan (1) Stroke (cerebrum) Status: Acute
--- NOTE | 2017-05-19 19:44 | CARD ---
APPROVED REPORT EXAM: Transesophageal echocardiogram with color flow Doppler. INDICATION CVA/TIA Mitral Valve E/A ratio0.0 TDI E/Lateral E'0.0E/Medial E'0.0 Reason For Test : Rule out cardiac source of emboli. PROCEDURE After obtaining informed consent, patient underwent transesophageal echo in the [employer]. Type of Sedation : Conscious Sedation Sedation was provided by anesthesiologist. Sedation was achieved with intravenously. The ALE was performed complications. Throughout the procedure, the blood pressure, pulse oximetry, cardiac rhythm, and rate were monitored. The patient tolerated the procedure without adverse effects. Recovery from conscious sedation was uneventful and vital signs were stable. LEFT VENTRICLE The left ventricle is normal size. The left ventricular function is normal. The left ventricular ejection fraction is within the normal range. There is normal LV segmental wall motion. No left ventricle thrombus noted on this study. There is no ventricular septal defect visualized. There is no left ventricular aneurysm. RIGHT VENTRICLE The right ventricular systolic function is normal. ATRIA The left atrium size is normal. The right atrium size is normal. 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 No aortic regurgitation is present. There is no aortic valvular stenosis. There is no aortic valvular vegetation. MITRAL VALVE The mitral valve is normal in structure. There is no mitral valve stenosis. Mitral regurgitation is mild. TRICUSPID VALVE The tricuspid valve is normal in structure. There is mild tricuspid regurgitation. There is no tricuspid valve stenosis. PULMONIC VALVE The pulmonary valve is normal in structure. GREAT VESSELS The aortic root is normal in size. <Conclusion> ALE report as above No evidence of cardiac source of emboli
[2017-05-20] MEDS: Piperacillin/Tazobact 3.375 GM in Sodium Chloride 100 ML IVPB SCH ×3 (03:01→18:13)
[2017-05-20] MEDS: Sodium Chloride 0.9% 1,000 ML IV SCH (03:03)
[2017-05-20 08:32] LABS: BASO % 0.5 % (0.0-2.0); EOS # 0.2 K/uL (0.0-0.7); EOS % 3.2 % (0.0-4.0); HEMOGLOBIN 11.7 g/dL (12.0-18.0); LYMPH # 0.6 K/uL (1.0-4.3); MEAN CORPUSCULAR HEMOGLOBIN 29.5 pg (27.0-31.0); MEAN CORPUSCULAR HGB CONC 32.8 g/dL (33.0-37.0); MEAN PLATELET VOLUME 8.4 fL (7.2-11.7); MONO # 0.8 K/uL (0.0-0.8); NEUT % 71.3 % (50.0-75.0); NRBC % 0.1 % (0.0-2.0); RBC 3.96 Mil/uL (4.40-5.90); RED CELL DISTRIBUTION WIDTH 14.1 % (11.5-14.5); WHITE BLOOD COUNT 5.7 K/uL (4.8-10.8)
[2017-05-20 08:39] LABS: ALBUMIN 3.1 g/dL (3.5-5.0)
[2017-05-20 08:40] LABS: MEAN CELL VOLUME 90.1 fL (80.0-94.0)
[2017-05-20 08:43] LABS: CALCIUM 8.7 mg/dl (8.6-10.4)
[2017-05-20] MEDS: (Novolin R) Insulin Human Regular 100 units/ml vial SC SCH ×5 (10:43→21:47)
[2017-05-20] MEDS: Aspirin-Dipyridamole 200-25 mg ER Cap PO SCH ×2 (11:00→17:54)
--- NOTE | 2017-05-20 12:00 | CP.PCM.PN ---
Subjective - Date & Time of Evaluation Date of Evaluation: 05/20/17 Time of Evaluation: 07:00 - Subjective Subjective: SURGERY PROGRESS NOTE FOR DR. RECIO Patient seen and examined at bedside. He states the abdominal pain is a little better but he does have some pain that is worse with standing. He is tolerating his diet and denies nausea or vomiting. IR armando drain had 270cc output over past 24 hours. Objective - Vital Signs/Intake and Output Vital Signs (last 24 hours): Temp Pulse Resp BP Pulse Ox 98.3 F 71 20 152/78 H 96 05/20/17 09:05 05/20/17 09:05 05/20/17 09:05 05/20/17 10:49 05/20/17 09:05 Intake and Output: 05/20/17 05/20/17 06:59 18:59 Intake Total 2170 Output Total 70 Balance 2100 - Medications Medications: Current Medications Acetaminophen (Tylenol 325mg Tab) 650 mg PO Q6 PRN PRN Reason: Fever >100.4 F Last Admin: 05/19/17 04:44 Dose: 650 mg Clopidogrel Bisulfate (Plavix) 75 mg PO DAILY [facility] Last Admin: 05/20/17 10:49 Dose: 75 mg Dipyridamole/Aspirin (Aggrenox 25-200 Mg) 1 ea PO BID [facility] Last Admin: 05/19/17 17:46 Dose: 1 ea Famotidine (Pepcid) 20 mg IVP Q12 [facility] Last Admin: 05/20/17 10:49 Dose: 20 mg Glimepiride (Amaryl) 4 mg PO DAILY [facility] Last Admin: 05/20/17 10:49 Dose: 4 mg Guaifenesin (Robitussin) 200 mg PO Q6 PRN PRN Reason: Cough and congestion Last Admin: 05/16/17 10:01 Dose: 200 mg Piperacillin Sod/Tazobactam (Sod 3.375 gm/ Sodium Chloride) 100 mls @ 200 mls/ hr IVPB Q8H [facility] Last Admin: 05/20/17 10:52 Dose: 200 mls/hr Sodium Chloride (Sodium Chloride 0.9%) 1,000 mls @ 100 mls/hr IV .Q10H [facility] Last Admin: 05/20/17 03:03 Dose: 100 mls/hr Insulin Human Regular (Novolin R) 0 unit SC ACHS E[facility]KA PRN Reason: Protocol Last Admin: 05/20/17 10:43 Dose: Not Given Metoprolol Tartrate (Lopressor) 25 mg PO Q12 [facility] Last Admin: 05/20/17 10:49 Dose: 25 mg Ondansetron HCl (Zofran Inj) 4 mg IVP Q6H PRN PRN Reason: Nausea/Vomiting Last Admin: 05/16/17 16:53 Dose: 4 mg Ondansetron HCl (Zofran Inj) 4 mg IVP DAILY@ONCE PRN PRN Reason: Nausea vomiting Last Admin: 05/16/17 20:55 Dose: 4 mg Rosuvastatin Calcium (Crestor) 10 mg PO HS [facility] Last Admin: 05/19/17 21:43 Dose: 10 mg - Labs Labs: 05/20/17 08:05 05/20/17 08:05 PT 13.2 SECONDS (9.7-12.2) H 05/17/17 07:11 INR 1.2 05/17/17 07:11 APTT 71 SECONDS (21-34) H 05/17/17 07:11 - Constitutional Appears: Non-toxic, No Acute Distress - Head Exam Head Exam: ATRAUMATIC, NORMAL INSPECTION - Respiratory Exam Respiratory Exam: NORMAL BREATHING PATTERN. absent: Respiratory Distress - Cardiovascular Exam Cardiovascular Exam: +S1, +S2 - GI/Abdominal Exam GI & Abdominal Exam: Soft, Tenderness (mild tenderness in RUQ and LUQ). absent : Distended, Firm, Guarding, Rigid, Rebound Additional comments: IR drain in place with sero-bilious output - Neurological Exam Neurological Exam: Alert, Awake - Psychiatric Exam Psychiatric exam: Normal Affect, Normal Mood - Skin Skin Exam: Dry, Normal Color Assessment and Plan - Assessment and Plan (Free Text) Assessment: 77yo M with sepsis secondary to cholecystitis - Afebrile, VSS - No leukocytosis - Bili improved to 1.0 today - LFTs still elevated but trending down - Continue IV Abx - Pain management PRN - Bile cx = no growth at 24 hours, Bile gram stain = moderate Gram + bacilli - OOB to chair, encouraged ambulation - IR armando drain had 270cc output over past 24 hours - Discussed plan with Dr. Jayme Dasilva PGY-2
--- NOTE | 2017-05-20 12:49 | CP.PCM.PN ---
Subjective - Date & Time of Evaluation Date of Evaluation: 05/19/17 Time of Evaluation: 15:10 - Subjective Subjective: Patient seen and evaluated No cardiac events ALE negative for cardioembolic stroke Continue Neuro recommendations Objective - Vital Signs/Intake and Output Vital Signs (last 24 hours): Temp Pulse Resp BP Pulse Ox 98.3 F 71 20 152/78 H 96 05/20/17 09:05 05/20/17 09:05 05/20/17 09:05 05/20/17 10:49 05/20/17 09:05 Intake and Output: 05/20/17 05/20/17 06:59 18:59 Intake Total 2170 Output Total 70 Balance 2100 - Medications Medications: Current Medications Acetaminophen (Tylenol 325mg Tab) 650 mg PO Q6 PRN PRN Reason: Fever >100.4 F Last Admin: 05/19/17 04:44 Dose: 650 mg Clopidogrel Bisulfate (Plavix) 75 mg PO DAILY [facility] Last Admin: 05/20/17 10:49 Dose: 75 mg Dipyridamole/Aspirin (Aggrenox 25-200 Mg) 1 ea PO BID [facility] Last Admin: 05/19/17 17:46 Dose: 1 ea Famotidine (Pepcid) 20 mg IVP Q12 [facility] Last Admin: 05/20/17 10:49 Dose: 20 mg Glimepiride (Amaryl) 4 mg PO DAILY [facility] Last Admin: 05/20/17 10:49 Dose: 4 mg Guaifenesin (Robitussin) 200 mg PO Q6 PRN PRN Reason: Cough and congestion Last Admin: 05/16/17 10:01 Dose: 200 mg Piperacillin Sod/Tazobactam (Sod 3.375 gm/ Sodium Chloride) 100 mls @ 200 mls/ hr IVPB Q8H [facility] Last Admin: 05/20/17 10:52 Dose: 200 mls/hr Sodium Chloride (Sodium Chloride 0.9%) 1,000 mls @ 100 mls/hr IV .Q10H [facility] Last Admin: 05/20/17 03:03 Dose: 100 mls/hr Insulin Human Regular (Novolin R) 0 unit SC ACHS ERIKA PRN Reason: Protocol Last Admin: 05/20/17 10:43 Dose: Not Given Metoprolol Tartrate (Lopressor) 25 mg PO Q12 [facility] Last Admin: 05/20/17 10:49 Dose: 25 mg Ondansetron HCl (Zofran Inj) 4 mg IVP Q6H PRN PRN Reason: Nausea/Vomiting Last Admin: 05/16/17 16:53 Dose: 4 mg Ondansetron HCl (Zofran Inj) 4 mg IVP DAILY@ONCE PRN PRN Reason: Nausea vomiting Last Admin: 05/16/17 20:55 Dose: 4 mg Rosuvastatin Calcium (Crestor) 10 mg PO HS [facility] Last Admin: 05/19/17 21:43 Dose: 10 mg - Labs Labs: 05/20/17 08:05 05/20/17 08:05 PT 13.2 SECONDS (9.7-12.2) H 05/17/17 07:11 INR 1.2 05/17/17 07:11 APTT 71 SECONDS (21-34) H 05/17/17 07:11
--- NOTE | 2017-05-20 15:31 | CP.PCM.PN ---
Subjective - Date & Time of Evaluation Date of Evaluation: 05/20/17 Time of Evaluation: 15:29 - Subjective Subjective: COMFORTABLY LYING DOWN WITH NO NEW SYMPTOMS STILL MILD LEFT SENSORY AND MOTOR DYSFUNCTION REST IS UNCHANGED CONTINUE THE SAME DISCUSSED WITH CARDIO ON ALE Objective - Vital Signs/Intake and Output Vital Signs (last 24 hours): Temp Pulse Resp BP Pulse Ox 98.3 F 71 20 152/78 H 96 05/20/17 09:05 05/20/17 09:05 05/20/17 09:05 05/20/17 10:49 05/20/17 09:05 Intake and Output: 05/20/17 05/20/17 06:59 18:59 Intake Total 2170 Output Total 70 50 Balance 2100 -50 - Medications Medications: Current Medications Acetaminophen (Tylenol 325mg Tab) 650 mg PO Q6 PRN PRN Reason: Fever >100.4 F Last Admin: 05/19/17 04:44 Dose: 650 mg Clopidogrel Bisulfate (Plavix) 75 mg PO DAILY [facility] Last Admin: 05/20/17 10:49 Dose: 75 mg Dipyridamole/Aspirin (Aggrenox 25-200 Mg) 1 ea PO BID [facility] Last Admin: 05/20/17 11:00 Dose: 1 ea Famotidine (Pepcid) 20 mg IVP Q12 [facility] Last Admin: 05/20/17 10:49 Dose: 20 mg Glimepiride (Amaryl) 4 mg PO DAILY [facility] Last Admin: 05/20/17 10:49 Dose: 4 mg Guaifenesin (Robitussin) 200 mg PO Q6 PRN PRN Reason: Cough and congestion Last Admin: 05/16/17 10:01 Dose: 200 mg Piperacillin Sod/Tazobactam (Sod 3.375 gm/ Sodium Chloride) 100 mls @ 200 mls/ hr IVPB Q8H [facility] Last Admin: 05/20/17 10:52 Dose: 200 mls/hr Sodium Chloride (Sodium Chloride 0.9%) 1,000 mls @ 100 mls/hr IV .Q10H [facility] Last Admin: 05/20/17 03:03 Dose: 100 mls/hr Insulin Human Regular (Novolin R) 0 unit SC ACHS ERIKA PRN Reason: Protocol Last Admin: 05/20/17 13:58 Dose: Not Given Metoprolol Tartrate (Lopressor) 25 mg PO Q12 [facility] Last Admin: 05/20/17 10:49 Dose: 25 mg Ondansetron HCl (Zofran Inj) 4 mg IVP Q6H PRN PRN Reason: Nausea/Vomiting Last Admin: 05/16/17 16:53 Dose: 4 mg Ondansetron HCl (Zofran Inj) 4 mg IVP DAILY@ONCE PRN PRN Reason: Nausea vomiting Last Admin: 05/16/17 20:55 Dose: 4 mg Rosuvastatin Calcium (Crestor) 10 mg PO HS [facility] Last Admin: 05/19/17 21:43 Dose: 10 mg - Labs Labs: 05/20/17 08:05 05/20/17 08:05 PT 13.2 SECONDS (9.7-12.2) H 05/17/17 07:11 INR 1.2 05/17/17 07:11 APTT 71 SECONDS (21-34) H 05/17/17 07:11 Assessment and Plan (1) Stroke (cerebrum) Status: Acute
--- NOTE | 2017-05-20 15:57 | CP.PCM.PN ---
Subjective - Date & Time of Evaluation Date of Evaluation: 05/20/17 Time of Evaluation: 09:00 - Subjective Subjective: pain relieved s/p cholecystotomy afebrile alert NAD dr biggs on board Objective - Vital Signs/Intake and Output Vital Signs (last 24 hours): Temp Pulse Resp BP Pulse Ox 98.3 F 71 20 152/78 H 96 05/20/17 09:05 05/20/17 09:05 05/20/17 09:05 05/20/17 10:49 05/20/17 09:05 Intake and Output: 05/20/17 05/20/17 06:59 18:59 Intake Total 2170 Output Total 70 50 Balance 2100 -50 - Medications Medications: Current Medications Acetaminophen (Tylenol 325mg Tab) 650 mg PO Q6 PRN PRN Reason: Fever >100.4 F Last Admin: 05/19/17 04:44 Dose: 650 mg Clopidogrel Bisulfate (Plavix) 75 mg PO DAILY [facility] Last Admin: 05/20/17 10:49 Dose: 75 mg Dipyridamole/Aspirin (Aggrenox 25-200 Mg) 1 ea PO BID [facility] Last Admin: 05/20/17 11:00 Dose: 1 ea Famotidine (Pepcid) 20 mg IVP Q12 [facility] Last Admin: 05/20/17 10:49 Dose: 20 mg Glimepiride (Amaryl) 4 mg PO DAILY [facility] Last Admin: 05/20/17 10:49 Dose: 4 mg Guaifenesin (Robitussin) 200 mg PO Q6 PRN PRN Reason: Cough and congestion Last Admin: 05/16/17 10:01 Dose: 200 mg Piperacillin Sod/Tazobactam (Sod 3.375 gm/ Sodium Chloride) 100 mls @ 200 mls/ hr IVPB Q8H [facility] Last Admin: 05/20/17 10:52 Dose: 200 mls/hr Sodium Chloride (Sodium Chloride 0.9%) 1,000 mls @ 100 mls/hr IV .Q10H [facility] Last Admin: 05/20/17 03:03 Dose: 100 mls/hr Insulin Human Regular (Novolin R) 0 unit SC ACHS ERIKA PRN Reason: Protocol Last Admin: 05/20/17 13:58 Dose: Not Given Metoprolol Tartrate (Lopressor) 25 mg PO Q12 [facility] Last Admin: 05/20/17 10:49 Dose: 25 mg Ondansetron HCl (Zofran Inj) 4 mg IVP Q6H PRN PRN Reason: Nausea/Vomiting Last Admin: 05/16/17 16:53 Dose: 4 mg Ondansetron HCl (Zofran Inj) 4 mg IVP DAILY@ONCE PRN PRN Reason: Nausea vomiting Last Admin: 05/16/17 20:55 Dose: 4 mg Rosuvastatin Calcium (Crestor) 10 mg PO HS [facility] Last Admin: 05/19/17 21:43 Dose: 10 mg - Labs Labs: 05/20/17 08:05 05/20/17 08:05 PT 13.2 SECONDS (9.7-12.2) H 05/17/17 07:11 INR 1.2 05/17/17 07:11 APTT 71 SECONDS (21-34) H 05/17/17 07:11 - Constitutional Appears: Non-toxic, Chronically Ill - Head Exam Head Exam: NORMOCEPHALIC - Eye Exam Eye Exam: PERRL. absent: Scleral icterus - ENT Exam ENT Exam: Mucous Membranes Dry, Normal External Ear Exam - Neck Exam Neck Exam: absent: Lymphadenopathy - Respiratory Exam Respiratory Exam: Decreased Breath Sounds - Cardiovascular Exam Cardiovascular Exam: REGULAR RHYTHM - GI/Abdominal Exam GI & Abdominal Exam: Distended, Soft - Rectal Exam Rectal Exam: Deferred - Exam Exam: NORMAL INSPECTION - Back Exam Back Exam: absent: CVA tenderness (L), CVA tenderness (R) - Neurological Exam Neurological Exam: Alert, Awake Assessment and Plan (1) CVA (cerebral vascular accident) Status: Acute (2) CAD (coronary artery disease) of artery bypass graft Status: Chronic - Assessment and Plan (Free Text) Assessment: s/p cholecystotomy cholecystitis elevated liver enzymes s/p sepsis TIA cont iv antibiotic rx cultures neg thus far
--- NOTE | 2017-05-20 16:06 | CP.PCM.PN ---
Subjective - Date & Time of Evaluation Date of Evaluation: 05/20/17 Time of Evaluation: 16:06 Objective - Vital Signs/Intake and Output Vital Signs (last 24 hours): Temp Pulse Resp BP Pulse Ox 98.3 F 71 20 152/78 H 96 05/20/17 09:05 05/20/17 09:05 05/20/17 09:05 05/20/17 10:49 05/20/17 09:05 Intake and Output: 05/20/17 05/20/17 06:59 18:59 Intake Total 2170 Output Total 70 50 Balance 2100 -50 - Medications Medications: Current Medications Acetaminophen (Tylenol 325mg Tab) 650 mg PO Q6 PRN PRN Reason: Fever >100.4 F Last Admin: 05/19/17 04:44 Dose: 650 mg Clopidogrel Bisulfate (Plavix) 75 mg PO DAILY [facility] Last Admin: 05/20/17 10:49 Dose: 75 mg Dipyridamole/Aspirin (Aggrenox 25-200 Mg) 1 ea PO BID [facility] Last Admin: 05/20/17 11:00 Dose: 1 ea Famotidine (Pepcid) 20 mg IVP Q12 [facility] Last Admin: 05/20/17 10:49 Dose: 20 mg Glimepiride (Amaryl) 4 mg PO DAILY [facility] Last Admin: 05/20/17 10:49 Dose: 4 mg Guaifenesin (Robitussin) 200 mg PO Q6 PRN PRN Reason: Cough and congestion Last Admin: 05/16/17 10:01 Dose: 200 mg Piperacillin Sod/Tazobactam (Sod 3.375 gm/ Sodium Chloride) 100 mls @ 200 mls/ hr IVPB Q8H [facility] Last Admin: 05/20/17 10:52 Dose: 200 mls/hr Sodium Chloride (Sodium Chloride 0.9%) 1,000 mls @ 100 mls/hr IV .Q10H [facility] Last Admin: 05/20/17 03:03 Dose: 100 mls/hr Insulin Human Regular (Novolin R) 0 unit SC ACHS ERIKA PRN Reason: Protocol Last Admin: 05/20/17 13:58 Dose: Not Given Metoprolol Tartrate (Lopressor) 25 mg PO Q12 [facility] Last Admin: 05/20/17 10:49 Dose: 25 mg Ondansetron HCl (Zofran Inj) 4 mg IVP Q6H PRN PRN Reason: Nausea/Vomiting Last Admin: 05/16/17 16:53 Dose: 4 mg Ondansetron HCl (Zofran Inj) 4 mg IVP DAILY@ONCE PRN PRN Reason: Nausea vomiting Last Admin: 05/16/17 20:55 Dose: 4 mg Rosuvastatin Calcium (Crestor) 10 mg PO HS [facility] Last Admin: 05/19/17 21:43 Dose: 10 mg - Labs Labs: 05/20/17 08:05 05/20/17 08:05 PT 13.2 SECONDS (9.7-12.2) H 05/17/17 07:11 INR 1.2 05/17/17 07:11 APTT 71 SECONDS (21-34) H 05/17/17 07:11
[2017-05-21] MEDS: Piperacillin/Tazobact 3.375 GM in Sodium Chloride 100 ML IVPB SCH ×3 (02:08→19:09)
--- NOTE | 2017-05-21 07:24 | CP.PCM.PN ---
Subjective - Date & Time of Evaluation Date of Evaluation: 05/21/17 Time of Evaluation: 07:05 - Subjective Subjective: PT MORE AWAKE SPEECH IS CLEAR NEURO NO PROGRESSION STABLE PT OT CONTINUE THE REST Objective - Vital Signs/Intake and Output Vital Signs (last 24 hours): Temp Pulse Resp BP Pulse Ox 98.2 F 58 L 20 178/55 H 95 05/20/17 23:05 05/21/17 04:02 05/20/17 23:05 05/20/17 23:05 05/20/17 23:05 Intake and Output: 05/21/17 05/21/17 06:59 18:59 Intake Total 1990 Output Total 560 Balance 1430 - Medications Medications: Current Medications Acetaminophen (Tylenol 325mg Tab) 650 mg PO Q6 PRN PRN Reason: Fever >100.4 F Last Admin: 05/19/17 04:44 Dose: 650 mg Clopidogrel Bisulfate (Plavix) 75 mg PO DAILY [facility] Last Admin: 05/20/17 10:49 Dose: 75 mg Dipyridamole/Aspirin (Aggrenox 25-200 Mg) 1 ea PO BID [facility] Last Admin: 05/20/17 17:54 Dose: 1 ea Famotidine (Pepcid) 20 mg IVP Q12 [facility] Last Admin: 05/20/17 21:17 Dose: 20 mg Glimepiride (Amaryl) 4 mg PO DAILY [facility] Last Admin: 05/20/17 10:49 Dose: 4 mg Guaifenesin (Robitussin) 200 mg PO Q6 PRN PRN Reason: Cough and congestion Last Admin: 05/16/17 10:01 Dose: 200 mg Piperacillin Sod/Tazobactam (Sod 3.375 gm/ Sodium Chloride) 100 mls @ 200 mls/ hr IVPB Q8H [facility] Last Admin: 05/21/17 02:08 Dose: 200 mls/hr Insulin Human Regular (Novolin R) 0 unit SC ACHS ERIKA PRN Reason: Protocol Last Admin: 05/20/17 21:47 Dose: Not Given Metoprolol Tartrate (Lopressor) 25 mg PO Q12 [facility] Last Admin: 05/20/17 21:08 Dose: 25 mg Ondansetron HCl (Zofran Inj) 4 mg IVP Q6H PRN PRN Reason: Nausea/Vomiting Last Admin: 05/16/17 16:53 Dose: 4 mg Ondansetron HCl (Zofran Inj) 4 mg IVP DAILY@ONCE PRN PRN Reason: Nausea vomiting Last Admin: 05/16/17 20:55 Dose: 4 mg Rosuvastatin Calcium (Crestor) 10 mg PO HS [facility] Last Admin: 05/20/17 21:07 Dose: 10 mg - Labs Labs: 05/20/17 08:05 05/20/17 08:05 PT 13.2 SECONDS (9.7-12.2) H 05/17/17 07:11 INR 1.2 05/17/17 07:11 APTT 71 SECONDS (21-34) H 05/17/17 07:11 Assessment and Plan (1) Stroke (cerebrum) Status: Acute
[2017-05-21] MEDS: (Novolin R) Insulin Human Regular 100 units/ml vial SC SCH ×4 (07:41→21:39)
[2017-05-21 07:56] LABS: ALBUMIN 3.3 g/dL (3.5-5.0)
[2017-05-21 08:07] LABS: BASO % 0.3 % (0.0-2.0); EOS # 0.2 K/uL (0.0-0.7); EOS % 3.9 % (0.0-4.0); HEMOGLOBIN 12.4 g/dL (12.0-18.0); LYMPH # 0.5 K/uL (1.0-4.3); LYMPH % 10.3 % (20.0-40.0); MEAN CELL VOLUME 89.8 fL (80.0-94.0); MEAN CORPUSCULAR HEMOGLOBIN 29.5 pg (27.0-31.0); MEAN CORPUSCULAR HGB CONC 32.9 g/dL (33.0-37.0); MONO # 0.8 K/uL (0.0-0.8); MONO % 14.8 % (0.0-10.0); NEUT # 3.6 K/uL (1.8-7.0); NEUT % 70.7 % (50.0-75.0); RBC 4.19 Mil/uL (4.40-5.90); WHITE BLOOD COUNT 5.2 K/uL (4.8-10.8)
--- NOTE | 2017-05-21 09:03 | CP.PCM.PN ---
Subjective - Date & Time of Evaluation Date of Evaluation: 05/21/17 Time of Evaluation: 06:40 - Subjective Subjective: Patient seen and examined this AM. SONG. Patient states that he has pain at the cholecystostomy tube site and the RUQ but it is well controlled. Denies any nausea, vomiting, and is tolerating diet. Encouraged patient to ambulate Objective - Vital Signs/Intake and Output Vital Signs (last 24 hours): Temp Pulse Resp BP Pulse Ox 98.5 F 81 20 197/81 H 98 05/21/17 08:54 05/21/17 08:54 05/21/17 08:54 05/21/17 08:54 05/21/17 08:54 Intake and Output: 05/21/17 05/21/17 06:59 18:59 Intake Total 1990 Output Total 560 Balance 1430 - Medications Medications: Current Medications Acetaminophen (Tylenol 325mg Tab) 650 mg PO Q6 PRN PRN Reason: Fever >100.4 F Last Admin: 05/19/17 04:44 Dose: 650 mg Clopidogrel Bisulfate (Plavix) 75 mg PO DAILY [facility] Last Admin: 05/20/17 10:49 Dose: 75 mg Dipyridamole/Aspirin (Aggrenox 25-200 Mg) 1 ea PO BID [facility] Last Admin: 05/20/17 17:54 Dose: 1 ea Famotidine (Pepcid) 20 mg IVP Q12 [facility] Last Admin: 05/20/17 21:17 Dose: 20 mg Glimepiride (Amaryl) 4 mg PO DAILY [facility] Last Admin: 05/20/17 10:49 Dose: 4 mg Guaifenesin (Robitussin) 200 mg PO Q6 PRN PRN Reason: Cough and congestion Last Admin: 05/16/17 10:01 Dose: 200 mg Piperacillin Sod/Tazobactam (Sod 3.375 gm/ Sodium Chloride) 100 mls @ 200 mls/ hr IVPB Q8H [facility] Last Admin: 05/21/17 02:08 Dose: 200 mls/hr Insulin Human Regular (Novolin R) 0 unit SC ACHS [facility]RIKA PRN Reason: Protocol Last Admin: 05/21/17 07:41 Dose: Not Given Metoprolol Tartrate (Lopressor) 25 mg PO Q12 [facility] Last Admin: 05/20/17 21:08 Dose: 25 mg Ondansetron HCl (Zofran Inj) 4 mg IVP Q6H PRN PRN Reason: Nausea/Vomiting Last Admin: 05/16/17 16:53 Dose: 4 mg Ondansetron HCl (Zofran Inj) 4 mg IVP DAILY@ONCE PRN PRN Reason: Nausea vomiting Last Admin: 05/16/17 20:55 Dose: 4 mg Rosuvastatin Calcium (Crestor) 10 mg PO HS [facility] Last Admin: 05/20/17 21:07 Dose: 10 mg - Labs Labs: 05/21/17 07:14 05/21/17 07:14 PT 13.2 SECONDS (9.7-12.2) H 05/17/17 07:11 INR 1.2 05/17/17 07:11 APTT 71 SECONDS (21-34) H 05/17/17 07:11 - Constitutional Appears: Well, Non-toxic, No Acute Distress - Head Exam Head Exam: ATRAUMATIC, NORMOCEPHALIC - Eye Exam Eye Exam: Normal appearance. absent: Conjunctival injection, Scleral icterus - ENT Exam ENT Exam: Mucous Membranes Moist, Normal Oropharynx - Respiratory Exam Respiratory Exam: NORMAL BREATHING PATTERN. absent: Accessory Muscle Use, Respiratory Distress - GI/Abdominal Exam GI & Abdominal Exam: Distended (mild), Soft, Tenderness (RUQ around the cholecystostomy insertion site) Additional comments: cholecystostomy tube in the RUQ with minimal sero-bilious fluid drainage. Dressing c/d/i - Extremities Exam Extremities Exam: Calf Tenderness. absent: Pedal Edema, Tenderness - Neurological Exam Neurological Exam: Alert, Awake, Oriented x3 - Psychiatric Exam Psychiatric exam: Normal Affect, Normal Mood - Skin Skin Exam: Dry, Intact, Normal Color, Warm Assessment and Plan - Assessment and Plan (Free Text) Assessment: 77yo M with sepsis secondary to cholecystitis Afebrile, VSS 110 cc's of output in the cholecystostomy tube over 24 hours down from 270 day before LFT's wnl except for ALT of 157 Plan: - Continue IV Abx - Pain management and anti-emetics PRN - Bile cx = no growth at 48 hours - OOB to chair, encouraged ambulation, ordered PT - IR drain care per Dr. Sea Vale's recs - No plan for surgical intervention. Possible outpatient cholecystectomy in the future once patient's clinical state has stabilized. - Patient should follow up with Dr. Delacruz in his office after discharge - Surgery will sign off at this time. Please re-consult for further questions or concerns Discussed plan with Dr. Jayme Todd, PGY2
[2017-05-21] MEDS: Aspirin-Dipyridamole 200-25 mg ER Cap PO SCH ×2 (09:04→17:36)
[2017-05-21] MEDS: Sodium Chloride 0.9% 1,000 ML IV SCH ×2 (11:44)
--- NOTE | 2017-05-21 15:19 | CP.PCM.PN ---
Subjective - Date & Time of Evaluation Date of Evaluation: 05/21/17 Objective - Vital Signs/Intake and Output Vital Signs (last 24 hours): Temp Pulse Resp BP Pulse Ox 98.5 F 81 20 190/80 H 98 05/21/17 08:54 05/21/17 08:54 05/21/17 08:54 05/21/17 09:00 05/21/17 08:54 Intake and Output: 05/21/17 05/21/17 06:59 18:59 Intake Total 1990 550 Output Total 560 30 Balance 1430 520 - Medications Medications: Current Medications Acetaminophen (Tylenol 325mg Tab) 650 mg PO Q6 PRN PRN Reason: Fever >100.4 F Last Admin: 05/19/17 04:44 Dose: 650 mg Clopidogrel Bisulfate (Plavix) 75 mg PO DAILY [facility] Last Admin: 05/21/17 09:00 Dose: 75 mg Dipyridamole/Aspirin (Aggrenox 25-200 Mg) 1 ea PO BID [facility] Last Admin: 05/21/17 09:04 Dose: 1 ea Famotidine (Pepcid) 20 mg IVP Q12 [facility] Last Admin: 05/21/17 08:59 Dose: 20 mg Glimepiride (Amaryl) 4 mg PO DAILY [facility] Last Admin: 05/21/17 09:00 Dose: 4 mg Guaifenesin (Robitussin) 200 mg PO Q6 PRN PRN Reason: Cough and congestion Last Admin: 05/16/17 10:01 Dose: 200 mg Piperacillin Sod/Tazobactam (Sod 3.375 gm/ Sodium Chloride) 100 mls @ 200 mls/ hr IVPB Q8H [facility] Last Admin: 05/21/17 10:25 Dose: 200 mls/hr Insulin Human Regular (Novolin R) 0 unit SC ACHS [facility] PRN Reason: Protocol Last Admin: 05/21/17 12:12 Dose: 3 unit Metoprolol Tartrate (Lopressor) 25 mg PO Q12 [facility] Last Admin: 05/21/17 09:00 Dose: 25 mg Ondansetron HCl (Zofran Inj) 4 mg IVP Q6H PRN PRN Reason: Nausea/Vomiting Last Admin: 05/16/17 16:53 Dose: 4 mg Ondansetron HCl (Zofran Inj) 4 mg IVP DAILY@ONCE PRN PRN Reason: Nausea vomiting Last Admin: 05/16/17 20:55 Dose: 4 mg Rosuvastatin Calcium (Crestor) 10 mg PO HS [facility] Last Admin: 05/20/17 21:07 Dose: 10 mg - Labs Labs: 05/21/17 07:14 05/21/17 07:14 PT 13.2 SECONDS (9.7-12.2) H 05/17/17 07:11 INR 1.2 05/17/17 07:11 APTT 71 SECONDS (21-34) H 05/17/17 07:11
--- NOTE | 2017-05-21 15:40 | CARD ---
APPROVED REPORT EKG Measurement Heart [id number] <Conclusion> Normal sinus rhythm Inferior infarct, age undetermined Abnormal ECG
[2017-05-22] MEDS: Piperacillin/Tazobact 3.375 GM in Sodium Chloride 100 ML IVPB SCH ×3 (03:23→19:00)
[2017-05-22 07:21] LABS: BASO % 0.4 % (0.0-2.0); EOS # 0.2 K/uL (0.0-0.7); EOS % 2.7 % (0.0-4.0); LYMPH # 0.7 K/uL (1.0-4.3); LYMPH % 10.7 % (20.0-40.0); MEAN CELL VOLUME 89.5 fL (80.0-94.0); MEAN CORPUSCULAR HEMOGLOBIN 29.2 pg (27.0-31.0); MEAN CORPUSCULAR HGB CONC 32.7 g/dL (33.0-37.0); MEAN PLATELET VOLUME 7.6 fL (7.2-11.7); MONO # 0.8 K/uL (0.0-0.8); MONO % 13.7 % (0.0-10.0); NEUT # 4.5 K/uL (1.8-7.0); NEUT % 72.5 % (50.0-75.0); NRBC % 0.1 % (0.0-2.0); RBC 4.44 Mil/uL (4.40-5.90); RED CELL DISTRIBUTION WIDTH 14.2 % (11.5-14.5); WHITE BLOOD COUNT 6.2 K/uL (4.8-10.8)
[2017-05-22] MEDS: (Novolin R) Insulin Human Regular 100 units/ml vial SC SCH ×4 (07:30→21:24)
[2017-05-22 07:36] LABS: ALBUMIN 3.6 g/dL (3.5-5.0)
[2017-05-22 07:40] LABS: ALB/GLOB RATIO 1.1 (1.0-2.1); CALCIUM 9.3 mg/dl (8.6-10.4)
[2017-05-22] MEDS: Aspirin-Dipyridamole 200-25 mg ER Cap PO SCH ×2 (09:32→19:00)
--- NOTE | 2017-05-22 14:32 | CP.PCM.PN ---
Subjective - Date & Time of Evaluation Date of Evaluation: 05/22/17 Time of Evaluation: 14:32 Objective - Vital Signs/Intake and Output Vital Signs (last 24 hours): Temp Pulse Resp BP Pulse Ox 98.2 F 68 20 180/75 H 94 L 05/22/17 07:00 05/22/17 07:00 05/22/17 07:00 05/22/17 09:27 05/22/17 07:00 Intake and Output: 05/22/17 05/22/17 06:59 18:59 Intake Total 765 Output Total 90 Balance 675 - Medications Medications: Current Medications Acetaminophen (Tylenol 325mg Tab) 650 mg PO Q6 PRN PRN Reason: Fever >100.4 F Last Admin: 05/19/17 04:44 Dose: 650 mg Clopidogrel Bisulfate (Plavix) 75 mg PO DAILY [facility] Last Admin: 05/22/17 09:27 Dose: 75 mg Dipyridamole/Aspirin (Aggrenox 25-200 Mg) 1 ea PO BID [facility] Last Admin: 05/22/17 09:32 Dose: 1 ea Famotidine (Pepcid) 20 mg IVP Q12 [facility] Last Admin: 05/22/17 09:27 Dose: 20 mg Glimepiride (Amaryl) 4 mg PO DAILY [facility] Last Admin: 05/22/17 09:27 Dose: 4 mg Guaifenesin (Robitussin) 200 mg PO Q6 PRN PRN Reason: Cough and congestion Last Admin: 05/16/17 10:01 Dose: 200 mg Piperacillin Sod/Tazobactam (Sod 3.375 gm/ Sodium Chloride) 100 mls @ 200 mls/ hr IVPB Q8H [facility] Last Admin: 05/22/17 10:00 Dose: 200 mls/hr Insulin Human Regular (Novolin R) 0 unit SC ACHS ERIKA PRN Reason: Protocol Last Admin: 05/22/17 11:35 Dose: 3 unit Metoprolol Tartrate (Lopressor) 25 mg PO Q12 [facility] Last Admin: 05/22/17 09:27 Dose: 25 mg Ondansetron HCl (Zofran Inj) 4 mg IVP Q6H PRN PRN Reason: Nausea/Vomiting Last Admin: 05/16/17 16:53 Dose: 4 mg Ondansetron HCl (Zofran Inj) 4 mg IVP DAILY@ONCE PRN PRN Reason: Nausea vomiting Last Admin: 05/16/17 20:55 Dose: 4 mg Rosuvastatin Calcium (Crestor) 10 mg PO HS ERIKA Last Admin: 05/21/17 21:29 Dose: 10 mg - Labs Labs: 05/22/17 07:08 05/22/17 07:08 PT 13.2 SECONDS (9.7-12.2) H 05/17/17 07:11 INR 1.2 05/17/17 07:11 APTT 71 SECONDS (21-34) H 05/17/17 07:11
[2017-05-23] MEDS: Piperacillin/Tazobact 3.375 GM in Sodium Chloride 100 ML IVPB SCH ×2 (05:19→11:00)
[2017-05-23] MEDS: (Novolin R) Insulin Human Regular 100 units/ml vial SC SCH ×3 (07:58→17:48)
[2017-05-23 08:33] VITALS: TEMP 98.3
--- NOTE | 2017-05-23 08:35 | CARD ---
APPROVED REPORT EKG Measurement Heart [id number] [place] 170P [id number] <Conclusion> Suspect arm lead reversal, interpretation assumes no reversal Normal sinus rhythm Lateral infarct, age undetermined Inferior infarct, age undetermined Abnormal ECG
[2017-05-23] MEDS: Aspirin-Dipyridamole 200-25 mg ER Cap PO SCH ×2 (09:22→17:41)
--- NOTE | 2017-05-23 14:38 | CP.PCM.DIS ---
Provider - Provider Date of Admission: 05/10/17 11:20 Attending physician: Marshall Madison MD Time Spent in preparation of Discharge (in minutes): 30 Hospital Course - Lab Results Lab Results: Micro Results 05/17/17 15:16 Blood-Venous Blood Culture - Final NO GROWTH AFTER 5 DAYS 05/17/17 15:16 Blood-Venous Gram Stain - Final TEST NOT PERFORMED 05/17/17 17:30 Blood-Venous Blood Culture - Final NO GROWTH AFTER 5 DAYS 05/17/17 17:30 Blood-Venous Gram Stain - Final TEST NOT PERFORMED 05/18/17 10:00 Bile Gram Stain - Final 05/18/17 10:00 Bile Body Fluid Culture - Final No growth. 05/18/17 06:00 Urine,Clean Catch Urine Culture - Final No Growth (<1,000 CFU/ML) Most Recent Lab Values WBC 6.2 K/uL (4.8-10.8) 05/22/17 07:08 RBC 4.44 Mil/uL (4.40-5.90) 05/22/17 07:08 Hgb 13.0 g/dL (12.0-18.0) 05/22/17 07:08 Hct 39.7 % (35.0-51.0) 05/22/17 07:08 MCV 89.5 fL (80.0-94.0) 05/22/17 07:08 MCH 29.2 pg (27.0-31.0) 05/22/17 07:08 MCHC 32.7 g/dL (33.0-37.0) L 05/22/17 07:08 RDW 14.2 % (11.5-14.5) 05/22/17 07:08 Plt Count 190 K/uL (130-400) 05/22/17 07:08 MPV 7.6 fL (7.2-11.7) 05/22/17 07:08 Neut % (Auto) 72.5 % (50.0-75.0) 05/22/17 07:08 Lymph % (Auto) 10.7 % (20.0-40.0) L 05/22/17 07:08 Hamlin % (Auto) 13.7 % (0.0-10.0) H 05/22/17 07:08 Eos % (Auto) 2.7 % (0.0-4.0) 05/22/17 07:08 Baso % (Auto) 0.4 % (0.0-2.0) 05/22/17 07:08 Neut # 4.5 K/uL (1.8-7.0) 05/22/17 07:08 Lymph # 0.7 K/uL (1.0-4.3) L 05/22/17 07:08 Hamlin # 0.8 K/uL (0.0-0.8) 05/22/17 07:08 Eos # 0.2 K/uL (0.0-0.7) 05/22/17 07:08 Baso # 0.0 K/uL (0.0-0.2) 05/22/17 07:08 Neutrophils % (Manual) 77 % (50-75) H 05/19/17 06:33 Band Neutrophils % 3 % (0-2) H 05/18/17 08:34 Lymphocytes % (Manual) 9 % (20-40) L 05/19/17 06:33 Reactive Lymphs % 1 % (0-0) H 05/18/17 08:34 Monocytes % (Manual) 13 % (0-10) H 05/19/17 06:33 Eosinophils % (Manual) 1 % (0-4) 05/19/17 06:33 Toxic Granulation Present 05/17/17 04:26 Platelet Estimate Normal (NORMAL) 05/19/17 06:33 Large Platelets Present 05/19/17 06:33 RBC Morphology Normal 05/18/17 08:34 Anisocytosis (manual) Slight 05/19/17 06:33 PT 13.2 SECONDS (9.7-12.2) H 05/17/17 07:11 INR 1.2 05/17/17 07:11 APTT 71 SECONDS (21-34) H 05/17/17 07:11 Sodium 141 mmol/L (132-148) 05/22/17 07:08 Potassium 4.5 mmol/L (3.6-5.2) 05/22/17 07:08 Chloride 103 mmol/L (98-107) 05/22/17 07:08 Carbon Dioxide 25 mmol/L (22-30) 05/22/17 07:08 Anion Gap 17 (10-20) 05/22/17 07:08 BUN 17 mg/dL (9-20) 05/22/17 07:08 Creatinine 1.5 MG/DL (0.8-1.5) 05/22/17 07:08 Est GFR ( Amer) 55 05/22/17 07:08 Est GFR (Non-Af Amer) 46 05/22/17 07:08 POC Glucose (mg/dL) 218 mg/dL (65-110) H 05/23/17 11:15 Random Glucose 144 mg/dL (75-110) H 05/22/17 07:08 Hemoglobin A1c 9.4 % (4.2-6.5) H 05/10/17 10:04 Lactic Acid 1.0 mmol/L (0.7-2.1) 05/17/17 20:06 Calcium 9.3 mg/dl (8.6-10.4) 05/22/17 07:08 Phosphorus 2.8 mg/dL (2.5-4.5) 05/17/17 04:26 Magnesium 2.3 mg/dL (1.6-2.3) 05/17/17 04:26 Total Bilirubin 1.0 mg/dL (0.2-1.3) 05/22/17 07:08 AST 49 U/L (17-59) 05/22/17 07:08 ALT 135 U/L (21-72) H 05/22/17 07:08 Alkaline Phosphatase 113 U/L (38-126) 05/22/17 07:08 Total Creatine Kinase 42 U/L (55-170) L 05/17/17 04:26 CK-MB (Mass) 1.50 ng/mL (0.0-3.38) 05/17/17 04:26 Troponin I < 0.0120 ng/mL (0.00-0.120) 05/11/17 09:23 Troponin I, Quant 0.0180 ng/mL (0.00-0.120) 05/17/17 04:26 Total Protein 6.9 g/dL (6.3-8.3) 05/22/17 07:08 Albumin 3.6 g/dL (3.5-5.0) 05/22/17 07:08 Globulin 3.4 gm/dL (2.2-3.9) 05/22/17 07:08 Albumin/Globulin Ratio 1.1 (1.0-2.1) 05/22/17 07:08 Triglycerides 93 mg/dL (0-149) D 05/10/17 10:04 Cholesterol 131 mg/dL (0-199) 05/10/17 10:04 LDL Cholesterol Direct 61 mg/dL (0-129) 05/10/17 10:04 HDL Cholesterol 50 mg/dL (30-70) 05/10/17 10:04 Amylase 57 U/L (30-110) 05/17/17 20:06 Lipase 112 U/L (23-300) 05/17/17 20:06 Vitamin B12 556 pg/mL (239-931) 05/13/17 20:34 Homocysteine 16.5 umol/L (6.6-14.8) H 05/13/17 20:34 Procalcitonin 1.07 NG/ML (0.19-0.49) H 05/17/17 20:06 Free T4 1.06 ng/dL (0.78-2.19) 05/13/17 20:34 TSH 3rd Generation 2.12 mIU/L (0.46-4.68) 05/13/17 20:34 Prolactin 24.6 ng/mL (3.7-17.9) H 05/13/17 20:34 RPR Nonreactive (NONREACTIVE) 05/13/17 20:34 - Hospital Course Hospital Course: Evaluated by Neurology and Surgery for acute cholecystitis. The patient underwent cholecystostomy tube placement by IR. He will follow up with Dr Delacruz as out patient for cholecystectomy. The patient is being transferred to [facility] Discharge Exam - Head Exam Head Exam: ATRAUMATIC, NORMOCEPHALIC - Eye Exam Eye Exam: Normal appearance - Respiratory Exam Respiratory Exam: Clear to PA & Lateral, NORMAL BREATHING PATTERN - Cardiovascular Exam Cardiovascular Exam: REGULAR RHYTHM, +S1, +S2 - GI/Abdominal Exam GI & Abdominal Exam: Normal Bowel Sounds, Soft - Extremities Exam Extremities exam: normal inspection - Neurological Exam Neurological exam: Alert, Oriented x3 - Psychiatric Exam Psychiatric exam: Normal Affect, Normal Mood Discharge Plan - Follow Up Plan Condition: STABLE Disposition: REHAB FACILITY/REHAB UNIT Instructions: Cholecystitis (DC), Cholecystitis (GEN) Additional Instructions: Please place Pt under Dr Yolanda Seo's service while at [facility]-- call upon arrival with bed assignment and for admitting orders continue meds as per med rec follow up
--- NOTE | 2017-05-23 15:24 | CP.PCM.PN ---
Subjective - Date & Time of Evaluation Date of Evaluation: 05/23/17 Time of Evaluation: 08:00 - Subjective Subjective: events noted iv rx in progress drains in place no distress Objective - Vital Signs/Intake and Output Vital Signs (last 24 hours): Temp Pulse Resp BP Pulse Ox 98.3 F 77 20 162/80 H 96 05/23/17 06:00 05/23/17 07:00 05/23/17 06:00 05/23/17 09:23 05/23/17 06:00 Intake and Output: 05/23/17 05/23/17 06:59 18:59 Intake Total 500 550 Output Total 175 Balance 325 550 - Medications Medications: Current Medications Acetaminophen (Tylenol 325mg Tab) 650 mg PO Q6 PRN PRN Reason: Fever >100.4 F Last Admin: 05/19/17 04:44 Dose: 650 mg Clopidogrel Bisulfate (Plavix) 75 mg PO DAILY [facility] Last Admin: 05/23/17 09:23 Dose: 75 mg Dipyridamole/Aspirin (Aggrenox 25-200 Mg) 1 ea PO BID [facility] Last Admin: 05/23/17 09:22 Dose: 1 ea Famotidine (Pepcid) 20 mg IVP Q12 [facility] Last Admin: 05/23/17 09:22 Dose: 20 mg Glimepiride (Amaryl) 4 mg PO DAILY [facility] Last Admin: 05/23/17 09:23 Dose: 4 mg Guaifenesin (Robitussin) 200 mg PO Q6 PRN PRN Reason: Cough and congestion Last Admin: 05/16/17 10:01 Dose: 200 mg Insulin Human Regular (Novolin R) 0 unit SC [facility] PRN Reason: Protocol Last Admin: 05/23/17 11:56 Dose: 3 unit Metoprolol Tartrate (Lopressor) 25 mg PO Q12 [facility] Last Admin: 05/23/17 09:23 Dose: 25 mg Ondansetron HCl (Zofran Inj) 4 mg IVP Q6H PRN PRN Reason: Nausea/Vomiting Last Admin: 05/16/17 16:53 Dose: 4 mg Ondansetron HCl (Zofran Inj) 4 mg IVP DAILY@ONCE PRN PRN Reason: Nausea vomiting Last Admin: 05/16/17 20:55 Dose: 4 mg Rosuvastatin Calcium (Crestor) 10 mg PO HS [facility] Last Admin: 05/22/17 21:11 Dose: 10 mg - Labs Labs: 05/22/17 07:08 05/22/17 07:08 PT 13.2 SECONDS (9.7-12.2) H 05/17/17 07:11 INR 1.2 05/17/17 07:11 APTT 71 SECONDS (21-34) H 05/17/17 07:11 - Constitutional Appears: Non-toxic, Chronically Ill - Head Exam Head Exam: NORMOCEPHALIC - Eye Exam Eye Exam: PERRL. absent: Scleral icterus - ENT Exam ENT Exam: Mucous Membranes Dry, Normal External Ear Exam - Neck Exam Neck Exam: absent: Lymphadenopathy - Respiratory Exam Respiratory Exam: Decreased Breath Sounds, Clear to Ausculation Bilateral - Cardiovascular Exam Cardiovascular Exam: REGULAR RHYTHM, +S1, +S2 - GI/Abdominal Exam GI & Abdominal Exam: Distended, Soft. absent: Tenderness - Rectal Exam Rectal Exam: Deferred Assessment and Plan (1) CVA (cerebral vascular accident) Status: Acute (2) CAD (coronary artery disease) of artery bypass graft Status: Chronic
[2017-05-23 18:39] VITALS: O2SAT 94
[2017-05-23 19:26] VITALS: PULSE 75
[2017-05-23 21:12] VITALS: BP 159/77
--- NOTE | 2017-05-25 12:35 | CARD ---
APPROVED REPORT EKG Measurement Heart [id number] [place] 172P45 [id number] <Conclusion> Normal sinus rhythm Inferior infarct, age undetermined Abnormal ECG
--- NOTE | 2017-05-26 07:00 | CARD ---
APPROVED REPORT EKG Measurement Heart [id number] DC [id number] <Conclusion> Normal sinus rhythm Inferior infarct, age undetermined Abnormal ECG
--- NOTE | 2017-05-30 10:53 | CON ---
DATE: 05/18/[address] Dr. Epps [address] Dr. Madison, Marshall, I was called for a GI consultation by the admitting MD. The patient was seen and fully examined on 05/18/2017 as requested by the admitting medical team. A written short consultation note was provided and due to the malfunction of the dictation system this consultation dictation note is provided now. HISTORY OF PRESENT ILLNESS: This is a 77-year-old male seen and examined on 05/18/2017 as requested by the medical admitting staff. The entire chart is reviewed including, but not limited to the most recent lab and ------ results. Current and previous medication list, current and previous medical events, allergy to medication list as well as all the available current and previous medical records. Case discussed with the staff at length in the floor. This is a 77-year-old male who was admitted to the hospital through the emergency room with generalized weakness and malaise, mainly in the right upper extremities with dyspepsia and nausea, was known reported history of CVA with some mild speech difficulty, dyspepsia with nausea and intermittent periods of mild shortness of breath. The patient denied any recent episode of active bleeding, palpitations or actual chest pain. After being admitted to the hospital initial blood workup showed normal CBC with increased blood glucose level of 135, increased BUN of 35, creatinine 1.6 with subsequent drop of hemoglobin and hematocrit was reported. Guaiac positive stool. The patient had also CAT scan of the head and report is seen. PAST MEDICAL HISTORY: Included, but not limited to: 1. Hypertension. 2. Diabetes mellitus. 3. Hyperlipidemia. 4. Peptic ulcer disease. 5. Coronary artery disease. 6. Status post CABG. FAMILY HISTORY: Unknown. SOCIAL HISTORY: Positive for alcohol intake, but no recent history of cigarette smoking. ALLERGIES TO MEDICATIONS: UNCLEAR. CURRENT MEDICATIONS: Medication lists were reviewed. PHYSICAL EXAMINATION: GENERAL: A 77-year-old male in mild respiratory distress. Awake, alert and oriented with respiratory rate of 20 to 24, ------, pulse of 72, blood pressure 124/66. HEENT: Showed pale, dry mucous membrane, nonicteric sclerae. HEART: Positive S1 and S2. LUNGS: Few scattered crepitation. Decreased air entry at bases. ABDOMEN: Soft with mild generalized tenderness. No mass or organomegaly. No rebound tenderness or guarding. RECTAL: Deferred. EXTREMITIES: Left-sided weakness with mild loss of sensation especially in the left arm. No other reported neurological deficits. No clubbing or cyanosis. IMPRESSION: 1. Exacerbation of peptic ulcer disease. 2. Rule out recurrent transient ischemic attack. 3. Mild anemia. 4. Known history of, but not limited to hyperlipidemia. 5. Hypertension. 6. Diabetes mellitus. 7. Coronary artery disease as well as status post coronary artery bypass graft. SUGGESTIONS: 1. Consult ------. 2. The patient had abdomen and pelvic CAT scan. 3. ------. 4. Repeat stool for occult blood x3. 5. No need for aggressive GI workup in the meantime as said the patient is more stable clinically except for significant drop of hemoglobin and hematocrit. Otherwise proton pump inhibitor and IV ------ p.o. to be added. Thank you for letting me to participating in your patient's case management. Yamile Connor MD
== END 2017-05-23 21:20 | DRG 64 ==
LOC: C.ER 09:23 → C.9E 11:20 → C.6T 18:07
PROVIDERS: ADMIT Internal Medicine Critical Care Medicine; ATTEND Internal Medicine Critical Care Medicine
PROC: B246ZZ4 Ultrasonography of Right and Left Heart, Transesophageal (ICD-10-PCS; 2017-05-18)
PROC: 0F9430Z Drainage of Gallbladder with Drainage Device, Percutaneous Approach (ICD-10-PCS; principal; 2017-05-18 08:00)
DX: I63.9 Cerebral infarction, unspecified (principal); A41.9 Sepsis, unspecified organism; K81.0 Acute cholecystitis; E11.65 Type 2 diabetes mellitus with hyperglycemia; G93.89 Other specified disorders of brain; E66.01 Morbid (severe) obesity due to excess calories; I25.810 Atherosclerosis of coronary artery bypass graft(s) without angina pectoris; E87.5 Hyperkalemia; E78.5 Hyperlipidemia, unspecified; I10 Essential (primary) hypertension; I25.10 Atherosclerotic heart disease of native coronary artery without angina pectoris; G83.24 Monoplegia of upper limb affecting left nondominant side; I69.311 Memory deficit following cerebral infarction; I69.328 Other speech and language deficits following cerebral infarction; Z79.4 Long term (current) use of insulin; Z68.39 Body mass index [BMI] 39.0-39.9, adult; Z87.891 Personal history of nicotine dependence; Z95.1 Presence of aortocoronary bypass graft

== ENCOUNTER 2017-07-09 05:20 | Day surgery (SDC) | payer MEDICARE ==
[2017-07-09] MEDS ORDERED: Midazolam 2 MG/2 ML VIAL ONE (07:24)
[2017-07-09] MEDS ORDERED: Propofol 10 mg/ml Inj (20 ML) ONE (07:25)
[2017-07-09 07:36] LABS: INR 1.1
[2017-07-09] MEDS ORDERED: Lactated Ringer's 1,000 ML IV ONE ×4 (07:52→10:35)
[2017-07-09] MEDS ORDERED: Iohexol 240 (50 ml) ONE (08:23)
[2017-07-09] MEDS ORDERED: Succinylcholine Chloride 20 mg/ml Syr (5 ml) IV ONE (08:41)
[2017-07-09] MEDS ORDERED: ceFAZolin IV 1 gm in Dextrose 1 GM/50 ML BAG IVPB ONE (08:41)
[2017-07-09] MEDS ORDERED: Rocuronium 10 mg/ml (5 ml) ONE (08:41)
[2017-07-09] MEDS ORDERED: ePHEDrine 50 mg/ml Inj ONE (08:50)
[2017-07-09] MEDS ORDERED: Phenylephrine 10 mg/ml Inj ONE (08:50)
[2017-07-09] MEDS ORDERED: Morphine 4 MG/ML VIAL ONE (09:10)
[2017-07-09] MEDS ORDERED: Neostigmine Methylsulfate 3mg/3ml Syringe IV ONE (09:40)
--- NOTE | 2017-07-09 10:17 | PCM.SURG1 ---
Surgeon's Initial Post Op Note - Surgeon's Notes Surgeon: Dr. Delacruz Coal Shoveler: Dr. Dasilva PGY-3, Dr. Kellogg PGY-2, Garth Mcfarland Jackie-GUERRERO Type of Anesthesia: General Endo Pre-Operative Diagnosis: Cholecystitis Operative Findings: cholelithiasis, umbilical hernia Post-Operative Diagnosis: Cholecystitis, umbilical hernia Operation Performed: Laparoscopic cholecystectomy, intra-operative cholangiogram , umbilical hernia repair Specimen/Specimens Removed: gallbladder Estimated Blood Loss: EBL {In ML}: 75 Blood Products Given: N/A Drains Used: No Drains Post-Op Condition: Good Date of Surgery/Procedure: 07/09/17 Time of Surgery/Procedure: 08:00
[2017-07-09 13:27] VITALS: BP 116/57; PULSE 77; RESP 12; TEMP 97.2; O2SAT 95
--- NOTE | 2017-07-09 23:31 | OP ---
PROCEDURE DATE: 07/09/2017 PREOPERATIVE DIAGNOSES: Cholecystitis, cholelithiasis, and status post cholecystostomy tube percutaneous. POSTOPERATIVE DIAGNOSES: Cholecystitis, cholelithiasis, and status post cholecystostomy tube percutaneous. PROCEDURE CARRIED OUT: Laparoscopic cholecystectomy with C-arm cholangiogram and to repair of chronic umbilical hernia. SURGEON: Spenser Delacruz Jr., MD [employer] SUPERVISOR: Dr. Dasilva and Dr. Kellogg. ANESTHESIA ADMINISTERED BY: Dr. Shankar FINDINGS: The patient is an older man with history of cardiac and neurological problems who initially presented with abdominal pain and gallbladder attack. At that time, he underwent percutaneous cholecystostomy with excellent resolution of his problem. He is now readmitted for removal of the cholecystostomy tube and removal of his gallbladder. OPERATIVE FINDINGS: 1. The gallbladder was inflamed. 2. There was a chronic umbilical hernia, which led to some difficulty in entrance and exit, but eventually was repaired quite well. 3. There was some bleeding from the cystic artery, which was promptly controlled with blood loss; however, approximately 75 to 100 mL. DESCRIPTION OF PROCEDURE: The patient was given general anesthesia, intravenous antibiotics, and Venodyne boots were applied. Ariel trocar was inserted in the umbilicus using a cutdown technique. After this has been placed and a pneumoperitoneum created, we then placed 2 additional 5-mm trocars. The cystic duct and cystic artery were reviewed, the view safety was obtained. Cholangiogram carried out to the cystic duct, which showed free flow into the duodenum, visualization of hepatic radicles and it did show no evidence of any stones or strictures. The only technical problem as we had difficulty capturing the portion just above the entrance of the cystic duct. After this had been done and checked again, we then removed the gallbladder from the field. We removed the cholecystostomy tube and then we removed the gallbladder in a bag. Bleeding from the liver bed was controlled with the use of cautery. We made the thorough suture for hemostasis twice. The cystic duct and cystic artery had been adequately clipped. We then terminated the procedure. We repaired the umbilical hernia with Vicryl sutures and nonabsorbable suture Maxon on the way out and closed the skin with subcuticular closure. Blood loss was 75 to 100 mL and the operation carried out laparoscopic cholecystectomy with cholangiogram (status post percutaneous cholecystostomy and to repair of chronic umbilical hernia chronically incarcerated.) Spenser Delacruz Jr., MD [facility] # [id number]
--- NOTE | 2017-07-11 14:51 | RAD ---
PROCEDURE: Intraoperative fluoroscopy HISTORY: CHOLECYSTITIS COMPARISON: Not available TECHNIQUE: Intraoperative fluoroscopy was provided for an intraoperative cholangiogram. Total time of fluoroscopy was 15.1 seconds. FINDINGS: Multiple fluoroscopic spot films are submitted. These demonstrate filling of the common bile duct and proximal biliary tree. No gross filling defect is appreciated. IMPRESSION: Fluoroscopy provided.
== END 2017-07-09 14:05 | disposition home or self-care (01) ==
LOC: C.SDS 05:20
PROVIDERS: ATTEND Surgery Vascular Surgery
DX: K80.12 Calculus of gallbladder with acute and chronic cholecystitis without obstruction (principal); K42.9 Umbilical hernia without obstruction or gangrene; E11.9 Type 2 diabetes mellitus without complications; I10 Essential (primary) hypertension; E78.00 Pure hypercholesterolemia, unspecified; E78.5 Hyperlipidemia, unspecified; Z93.4 Other artificial openings of gastrointestinal tract status; Z95.1 Presence of aortocoronary bypass graft; Z79.4 Long term (current) use of insulin; Z86.73 Personal history of transient ischemic attack (TIA), and cerebral infarction without residual deficits; Z79.02 Long term (current) use of antithrombotics/antiplatelets; Z79.82 Long term (current) use of aspirin
CPT/HCPCS: 36415; 47563; 49652; 76000; 82948; 85610; 85730; 88304; J0690; J2001; J2270; J2370; J2704; J2710; J3010; J7120; Q9966

== ENCOUNTER 2017-07-10 23:48 | Inpatient (IN) | payer MEDICARE ==
[2017-07-10 23:48] VITALS: BMI 40.7
[2017-07-11] MEDS ORDERED: Sodium Chloride 0.9% 1,000 ML IV STA (00:16)
--- NOTE | 2017-07-11 00:21 | C.PDOC ---
History Of Present Illness 77 y/o M c PMHx HTN, HLD, DM, recent laparoscopy 2 days ago p/w fever x 1 day. Patient complained of chest pain at triage, fever during nursing evaluation, and low blood pressure (SBP 101) at home during my evaluation. at bedside states that patient has been confused for the last 2 days and is not a reliable historian at this time. Patient and state patient has had abdominal pain when palpated or when sitting up or lying down but not at rest. Time Seen by Provider: 07/11/17 00:00 Chief Complaint (Nursing): Fever History Per: Patient History/Exam Limitations: no limitations Onset/Duration Of Symptoms: Days (1) Current Symptoms Are (Timing): Still Present Severity: Mild Recent travel outside of the [place]: No Additional History Per: Patient Past Medical History Reviewed: Historical Data, Nursing Documentation, Vital Signs Vital Signs: Last Vital Signs Temp 99.3 F 07/11/17 00:58 Pulse 109 H 07/11/17 00:58 Resp 17 07/11/17 00:58 BP 138/71 07/11/17 00:58 Pulse Ox 94 L 07/11/17 00:58 - Medical History PMH: Diabetes, HTN, Hypercholesterolemia Denies: Chronic Kidney Disease Surgical History: CABG (2011) - [facility] Procedures DRAINAGE OF GALLBLADDER WITH DRAINAGE DEVICE, PERC APPROACH (05/10/17) ENDO EXCISION/DEST OF LESION OR TISSUE OF STOMACH (12/31/14) ULTRASONOGRAPHY OF RIGHT AND LEFT HEART, TRANSESOPHAGEAL (05/10/17) Family History: States: Unknown Family Hx - Social History Hx Tobacco Use: No Hx Alcohol Use: Yes Hx Substance Use: No - Immunization History Hx Tetanus Toxoid Vaccination: Yes Hx Influenza Vaccination: Yes Hx Pneumococcal Vaccination: Yes Review Of Systems Except As Marked, All Systems Reviewed And Found Negative. Constitutional: Positive for: Fever Cardiovascular: Negative for: Chest Pain Respiratory: Negative for: Shortness of Breath Physical Exam - Physical Exam Additional Physical Exam Comments: Constitutional: No acute distress. Head: Normocephalic. Atraumatic. Eyes: PERRL. ENT: Moist mucous membranes. Neck: Supple. Cardiovascular: Tachycardic. Radial pulse 2+ bilaterally. Chest: No tenderness. Abdomen: Soft, clean and dry surgical bandages, normal tenderness over incision sites. Respiratory: Clear to auscultation bilaterally. GI: Soft. Nontender. Nondistended. Back: No CVA tenderness. Musculoskeletal: No tenderness or swelling of extremities. Skin: No rash. Neurologic: Alert, no focal deficit. ED Course And Treatment - Laboratory Results Result Diagrams: 07/11/17 00:33 07/11/17 00:33 O2 Sat by Pulse Oximetry: 86 (RA) Pulse Ox Interpretation: Normal Medical Decision Making Medical Decision Making: Impression: 77 y/o male here for fever x 1 day. Plans: * Blood work up * CXR * Tylenol * IV fluids * UA IMPRESSION: There has been a cholecystectomy. There is a small amount of fluid in the right upper quadrant. If there is desire to evaluate for the possibility of a bile leak, a nuclear medicine hepatobiliary scan could be performed. There is mild patchy consolidation in the right lower lobe of the lung consistent with atelectasis and/or pneumonia. There is a small right pleural effusion. Started on Cefepime antibiotics. Vital signs improved. Dr. Madison accepts admission to his service. EKG shows sinus tachycardia 119 bpm, no ST elevations. Disposition - Disposition Disposition: HOSPITALIZED Disposition Time: 02:02 Condition: GUARDED Forms: [employer] (Indonesian) - POA Core Measure Indicators: Pneumonia - Clinical Impression Clinical Impression: Pneumonia, Sepsis - Scribe Statement The provider has reviewed the documentation as recorded by the Scribceline rubio All medical record entries made by the Dungibceline were at my direction and personally dictated by me. I have reviewed the chart and agree that the record accurately reflects my personal performance of the history, physical exam, medical decision making, and the department course for this patient. I have also personally directed, reviewed, and agree with the discharge instructions and disposition.
[2017-07-11] MEDS ORDERED: Sodium Chloride 0.9% 1,000 ML ONE (00:24)
[2017-07-11 00:36] LABS: BASO % 0.4 % (0.0-2.0); EOS # 0.1 K/uL (0.0-0.7); EOS % 0.8 % (0.0-4.0); HEMATOCRIT 35.3 % (35.0-51.0); LYMPH # 0.9 K/uL (1.0-4.3); LYMPH % 8.8 % (20.0-40.0); MEAN CORPUSCULAR HEMOGLOBIN 30.2 pg (27.0-31.0); MEAN CORPUSCULAR HGB CONC 33.2 g/dL (33.0-37.0); MEAN PLATELET VOLUME 8.1 fL (7.2-11.7); MONO # 1.6 K/uL (0.0-0.8); MONO % 15.3 % (0.0-10.0); NRBC % 0.1 % (0.0-2.0); PLATELET COUNT 137 K/uL (130-400); RED CELL DISTRIBUTION WIDTH 14.6 % (11.5-14.5); WHITE BLOOD COUNT 10.5 K/uL (4.8-10.8)
[2017-07-11 00:39] LABS: VENOUS BLOOD GAS BASE EXCESS -2.5 mmol/L (0.0-2.0); VENOUS BLOOD GAS PCO2 55 mmHg (40-60); VENOUS BLOOD PH 7.27 (7.32-7.43)
[2017-07-11 00:45] LABS: ALB/GLOB RATIO 1.3 (1.0-2.1); TOTAL PROTEIN 6.7 g/dL (6.3-8.3)
[2017-07-11 00:46] LABS: BILIRUBIN,TOTAL 0.7 mg/dL (0.2-1.3); CALCIUM 9.2 mg/dl (8.6-10.4)
[2017-07-11 01:48] LABS: EOSINOPHIL 1 % (0-4); NEUTROPHIL 79 % (50-75); TOTAL CELLS COUNTED 100
[2017-07-11 01:48] LABS: RBC URINE 1 /hpf (0-3); URINE BILIRUBIN NEGATIVE (NEGATIVE); URINE BLOOD NEGATIVE (NEGATIVE); URINE COLOR Yellow (YELLOW); URINE GLUCOSE (UA) NORMAL (Normal); URINE HYALINE CAST 0-2 /lpf (0-2); URINE KETONE NEGATIVE (NEGATIVE); URINE LEUKOCYTE ESTERASE NEG Leu/uL (Negative); URINE PROTEIN 2+ mg/dL (NEGATIVE); URINE UROBILINOGEN NORMAL mg/dL (0.2-1.0); WBC URINE 1 /hpf (0-5)
[2017-07-11] MEDS ORDERED: Cefepime IV 1 gm in Dextrose 1 GM/50 ML BAG IVPB STA (01:57)
[2017-07-11] MEDS: Cefepime IV 1 gm in Dextrose 1 GM/50 ML BAG IVPB SCH ×2 (02:00→13:27)
[2017-07-11 03:10] VITALS: RESP 20
[2017-07-11] MEDS: (Novolin R) Insulin Human Regular 100 units/ml vial SC SCH ×4 (08:00→21:49)
--- NOTE | 2017-07-11 08:44 | CT ---
PROCEDURE: CT Abdomen and Pelvis without intravenous contrast HISTORY: s/p recent laparoscopy, fever COMPARISON: 12/31/2014 TECHNIQUE: Without contrast.. Contrast Dose: 0 Radiation dose: Total exam DLP = 1182.27 mGy-cm. This CT exam was performed using one or more of the following dose reduction techniques: Automated exposure control, adjustment of the mA and/or kV according to patient size, and/or use of iterative reconstruction technique. FINDINGS: LOWER THORAX: Subsegmental atelectasis right lower lobe with trace right pleural effusion. Linear scar/atelectasis also noted in right lower lobe. No priscila infiltrate. Coronary arterial calcification noted. LIVER: Normal size, contour and attenuation. No mass. No biliary dilatation. Status post cholecystectomy. Surgical clips in gallbladder fossa. Small collection of fluid in gallbladder fossa may reflect merely expected postoperative change. However, cannot entirely rule out abscess or bile leak. There is also stranding of the pericholecystic fat again consistent with postoperative change from recent laparoscopic cholecystectomy. If there is clinical concern regarding bile leak, consider evaluation with radionuclide hepatobiliary scan. GALLBLADDER AND BILE DUCTS: Cholecystectomy PANCREAS: Unremarkable. No gross lesion or ductal dilatation. SPLEEN: Unremarkable. ADRENALS: Unremarkable. KIDNEYS AND URETERS: Curvilinear calcification associated with right lower pole renal cortical cyst. This is better visualized on prior CT examination of 12/31/2014, performed with intravenous contrast administration. The right lower pole cyst itself is poorly visualized on this noncontrast examination. There is a very small exophytic left upper pole renal cortical cyst, approximately 9 mm in diameter. This is unchanged. There is no other renal mass. There is no obstructing calculus or hydronephrosis. Medial to upper pole left kidney, there is a low-density mass which appears separate from the adrenal gland. This measures 3.3 x 5.2 x 4.8 cm. This has increased in size mildly when compared to the prior CT examination of 12/31/2014, at which time this measured approximately 4.9 x 3.0 x 4.4 cm. This measures 1.7 Hounsfield units, roughly equivalent to water. However this could represent partial lipid content as well. Given the lack of apparent association with the left adrenal gland and the interval increase in size, further evaluation is suggested. Recommend gadolinium enhanced magnetic resonance imaging for further evaluation. VASCULATURE: Unremarkable. No aortic aneurysm. BOWEL: Unremarkable. No obstruction. No gross mural thickening. APPENDIX: Unremarkable. Normal appendix. PERITONEUM: Unremarkable. No free fluid. No free air. LYMPH NODES: Unremarkable. No enlarged lymph nodes. BLADDER: Unremarkable. REPRODUCTIVE: Mild prostate enlargement. BONES: No acute fracture. OTHER FINDINGS: None. IMPRESSION: Postoperative changes in gallbladder fossa. Small collection of fluid in gallbladder fossa status post recent cholecystectomy, nonspecific. This may reflect postoperative seroma, bile leak or abscess. Please correlate clinically. Fluid density mass medial to upper pole left kidney separate from left adrenal gland, slightly increased in size from 12/31/2014. Further evaluation is advised with gadolinium enhanced magnetic resonance imaging. Preliminary interpretation of this examination was reported by Captain Wise at 1:56 a.m. on 07/11/2017. There is discordance of this report with the preliminary interpretation. Interval change in size of the mass medial to upper pole left kidney was not described and recommendation for further evaluation was not made in the preliminary report of this examination.
[2017-07-11] MEDS: Enoxaparin 40 mg Syringe SC SCH (10:28)
[2017-07-11] MEDS: Aspirin-Dipyridamole 200-25 mg ER Cap PO SCH ×2 (10:28→21:45)
--- NOTE | 2017-07-11 13:46 | RAD ---
HISTORY: fever COMPARISON: Chest x-ray performed 04/13/17, lung bases on CT of the abdomen and pelvis performed 07/11/17. TECHNIQUE: Chest, one view. FINDINGS: Examination limited by habitus and hypoinflation. LUNGS: Small right pleural effusion. Mild bibasilar atelectasis. No definite pneumothorax. CARDIOVASCULAR: Median sternotomy wires. Cardiomegaly. OSSEOUS STRUCTURES: No acute osseous abnormality identified. VISUALIZED UPPER ABDOMEN: Unremarkable. OTHER FINDINGS: None. IMPRESSION: Hypoinflation. Small right pleural effusion. Mild bibasilar atelectasis. Cardiomegaly.
--- NOTE | 2017-07-11 14:38 | CP.PCM.HP ---
History of Present Illness - History of Present Illness History of Present Illness: 77 y/o M c PMHx HTN, HLD, DM, recent laparoscopy 2 days ago p/w fever x 1 day. Patient complained of chest pain at triage, fever during nursing evaluation, and low blood pressure (SBP 101) at home during my evaluation. at bedside states that patient has been confused for the last 2 days and is not a reliable historian at this time. Patient and state patient has had abdominal pain when palpated or when sitting up or lying down but not at rest. Present on Admission - Present on Admission Any Indicators Present on Admission: No History of DVT/PE: No History of Uncontrolled Diabetes: No Urinary Catheter: No Decubitus Ulcer Present: No Review of Systems - Review of Systems All systems: reviewed and no additional remarkable complaints except (As mentioned in HPI) Past Patient History - Infectious Disease Hx of Infectious Diseases: None - Past Medical History & Family History Past Medical History?: Yes - Past Social History Smoking Status: Former Smoker - CARDIAC Hx Hypercholesterolemia: Yes Hx Hypertension: Yes - PULMONARY Hx Respiratory Disorders: Yes Hx Bronchitis: Yes - NEUROLOGICAL Hx Neurological Disorder: Yes HX Cerebrovascular Accident: Yes - HEENT Hx HEENT Problems: No - RENAL Hx Chronic Kidney Disease: No - ENDOCRINE/METABOLIC Hx Endocrine Disorders: Yes Hx Diabetes Mellitus Type 2: Yes - HEMATOLOGICAL/ONCOLOGICAL Hx Blood Disorders: Yes Hx Blood Transfusions: Yes Hx Blood Transfusion Reaction: No - INTEGUMENTARY Hx Dermatological Problems: No - MUSCULOSKELETAL/RHEUMATOLOGICAL Hx Musculoskeletal Disorders: Yes Hx Arthritis: Yes Hx Falls: No - GASTROINTESTINAL Hx Gastrointestinal Disorders: Yes - GENITOURINARY/GYNECOLOGICAL Hx Genitourinary Disorders: No - PSYCHIATRIC Hx Psychophysiologic Disorder: No Hx Substance Use: No - SURGICAL HISTORY Hx Surgeries: Yes Hx Cholecystectomy: Yes Hx Coronary Artery Bypass Graft: Yes (2011) Hx Herniorrhaphy: Yes - ANESTHESIA Hx Anesthesia: Yes Hx Anesthesia Reactions: No Hx Malignant Hyperthermia: No Meds Home Medications: Home Medication List Medication Instructions Recorded Confirmed Type Ciprofloxacin [Cipro] 500 mg PO Q12 #14 tab 07/14/17 Rx Metronidazole [Flagyl] 500 mg PO Q8 #21 tablet 07/14/17 Rx Allergies/Adverse Reactions: Allergies Allergy/AdvReac Type Severity Reaction Status Date / Time No Known Allergies Allergy Verified 07/11/17 00:04 Physical Exam - Head Exam Head Exam: NORMAL INSPECTION - Eye Exam Eye Exam: Normal appearance - ENT Exam ENT Exam: Mucous Membranes Moist - Respiratory Exam Respiratory Exam: Clear to Auscultation Bilateral, NORMAL BREATHING PATTERN - Cardiovascular Exam Cardiovascular Exam: REGULAR RHYTHM, +S1, +S2 - GI/Abdominal Exam GI & Abdominal Exam: Guarding, Hypoactive Bowel Sounds. absent: Rebound, Rigid - Extremities Exam Extremities exam: Positive for: pedal edema - Neurological Exam Neurological exam: Alert, Normal Gait, Oriented x3 - Skin Skin Exam: Normal Color Results - Vital Signs Recent Vital Signs: Last Vital Signs Temp 98.3 F 07/11/17 07:00 Pulse 98 H 07/11/17 07:00 Resp 20 07/11/17 07:00 BP 152/73 H 07/11/17 10:27 Pulse Ox 96 07/11/17 07:00 - Labs Result Diagrams: 07/14/17 06:21 07/14/17 06:21 Labs: Laboratory Results - last 24 hr 07/11/17 07/11/17 06:03 11:49 POC Glucose (mg/dL) 130 H 194 H Assessment & Plan - Assessment and Plan (Free Text) Assessment: Abdominal pain Sepsissmall collection of fluid in gallbladder fossa Hypertension Diabetes Zosyn/Vanco Peañ cultures BP control Accu-Chek Hyperglycemic control DVT/GI prophylaxis
--- NOTE | 2017-07-11 20:21 | CARD ---
APPROVED REPORT EKG Measurement Heart [id number] <Conclusion> Sinus tachycardia Inferior infarct, age undetermined Abnormal ECG
[2017-07-12] MEDS: Cefepime IV 1 gm in Dextrose 1 GM/50 ML BAG IVPB SCH ×2 (01:00→14:00)
[2017-07-12] MEDS: (Novolin R) Insulin Human Regular 100 units/ml vial SC SCH ×4 (07:47→22:17)
[2017-07-12] MEDS: Enoxaparin 40 mg Syringe SC SCH (09:17)
[2017-07-12] MEDS: Aspirin-Dipyridamole 200-25 mg ER Cap PO SCH ×2 (09:20→18:07)
--- NOTE | 2017-07-12 18:03 | CP.PCM.PN ---
Subjective - Date & Time of Evaluation Date of Evaluation: 07/12/17 Time of Evaluation: 18:03 - Subjective Subjective: Patient seen and examined Reports less abdominal pain Feels better Objective - Vital Signs/Intake and Output Vital Signs (last 24 hours): Temp Pulse Resp BP Pulse Ox 98.2 F 78 20 131/64 96 07/12/17 15:00 07/12/17 15:00 07/12/17 15:00 07/12/17 15:00 07/12/17 15:00 Intake and Output: 07/12/17 07/12/17 06:59 18:59 Intake Total 210 Balance 210 - Medications Medications: Current Medications Acetaminophen (Tylenol 325mg Tab) 650 mg PO Q6 PRN PRN Reason: Fever >100.4 F Last Admin: 07/12/17 14:18 Dose: 650 mg Clopidogrel Bisulfate (Plavix) 75 mg PO DAILY [facility] Last Admin: 07/12/17 09:18 Dose: 75 mg Dipyridamole/Aspirin (Aggrenox 25-200 Mg) 1 ea PO BID [facility] Last Admin: 07/12/17 09:20 Dose: 1 ea Enoxaparin Sodium (Lovenox) 40 mg SC DAILY [facility] Last Admin: 07/12/17 09:17 Dose: 40 mg Glimepiride (Amaryl) 4 mg PO ACB [facility] Last Admin: 07/12/17 07:46 Dose: 4 mg Cefepime HCl (Maxipime Iv 1 Gm Premix) 1 gm in 50 mls @ 100 mls/hr IVPB Q12H [facility] Last Admin: 07/12/17 14:00 Dose: 100 mls/hr Insulin Human Regular (Novolin R) 0 unit SC ACHS [facility] PRN Reason: Protocol Last Admin: 07/12/17 18:01 Dose: Not Given Metoprolol Tartrate (Lopressor) 25 mg PO Q12 [facility] Last Admin: 07/12/17 09:17 Dose: 25 mg Rosuvastatin Calcium (Crestor) 10 mg PO HS [facility] Last Admin: 07/11/17 21:45 Dose: 10 mg - Eye Exam Eye Exam: Normal appearance - ENT Exam ENT Exam: Mucous Membranes Moist - Respiratory Exam Respiratory Exam: Clear to Ausculation Bilateral, NORMAL BREATHING PATTERN - Cardiovascular Exam Cardiovascular Exam: REGULAR RHYTHM, +S1, +S2 - GI/Abdominal Exam GI & Abdominal Exam: Soft, Hypoactive Bowel Sounds - Extremities Exam Extremities Exam: Pedal Edema - Neurological Exam Neurological Exam: Alert, Oriented x3 - Psychiatric Exam Psychiatric exam: Normal Affect, Normal Mood Assessment and Plan - Assessment and Plan (Free Text) Assessment: Abdominal pain Sepsissource GI Hypertension Diabetes History of CVA Continue Vanco/Zosyn Cultures with no growth so far Repeat CBC in the morning PT/OT Out of bed to chair Incentive spirometry Accu-Chek Insulin sliding scale BP control DVT GI prophylax
[2017-07-13] MEDS: Cefepime IV 1 gm in Dextrose 1 GM/50 ML BAG IVPB SCH ×2 (01:36→14:00)
[2017-07-13] MEDS: (Novolin R) Insulin Human Regular 100 units/ml vial SC SCH ×4 (07:30→21:56)
[2017-07-13] MEDS: Enoxaparin 40 mg Syringe SC SCH (09:05)
[2017-07-13] MEDS: Aspirin-Dipyridamole 200-25 mg ER Cap PO SCH ×2 (10:39→17:18)
--- NOTE | 2017-07-13 16:17 | CP.PCM.PN ---
Subjective - Date & Time of Evaluation Date of Evaluation: 07/13/17 Time of Evaluation: 16:17 - Subjective Subjective: Patient seen and examined Abdominal pain has nearly resolved Objective - Vital Signs/Intake and Output Vital Signs (last 24 hours): Temp Pulse Resp BP Pulse Ox 98.4 F 74 20 125/71 96 07/13/17 07:49 07/13/17 16:04 07/13/17 07:49 07/13/17 09:07 07/13/17 07:49 Intake and Output: 07/13/17 07/13/17 06:59 18:59 Intake Total 60 Output Total 1000 Balance -940 - Medications Medications: Current Medications Acetaminophen (Tylenol 325mg Tab) 650 mg PO Q6 PRN PRN Reason: Fever >100.4 F Last Admin: 07/13/17 09:09 Dose: 650 mg Clopidogrel Bisulfate (Plavix) 75 mg PO DAILY [facility] Last Admin: 07/13/17 09:05 Dose: 75 mg Dipyridamole/Aspirin (Aggrenox 25-200 Mg) 1 ea PO BID [facility] Last Admin: 07/13/17 10:39 Dose: 1 ea Enoxaparin Sodium (Lovenox) 40 mg SC DAILY [facility] Last Admin: 07/13/17 09:05 Dose: 40 mg Glimepiride (Amaryl) 4 mg PO ACB [facility] Last Admin: 07/13/17 09:05 Dose: 4 mg Cefepime HCl (Maxipime Iv 1 Gm Premix) 1 gm in 50 mls @ 100 mls/hr IVPB Q12H [facility] Last Admin: 07/13/17 14:00 Dose: 100 mls/hr Insulin Human Regular (Novolin R) 0 unit SC ACHS [facility] PRN Reason: Protocol Last Admin: 07/13/17 11:30 Dose: Not Given Metoprolol Tartrate (Lopressor) 25 mg PO Q12 [facility] Last Admin: 07/13/17 09:07 Dose: 25 mg Rosuvastatin Calcium (Crestor) 10 mg PO HS [facility] Last Admin: 07/12/17 22:16 Dose: 10 mg - Head Exam Head Exam: NORMAL INSPECTION - Eye Exam Eye Exam: Normal appearance - ENT Exam ENT Exam: Mucous Membranes Moist - Respiratory Exam Respiratory Exam: Clear to Ausculation Bilateral, NORMAL BREATHING PATTERN - GI/Abdominal Exam GI & Abdominal Exam: Soft, Normal Bowel Sounds - Extremities Exam Extremities Exam: Pedal Edema - Neurological Exam Neurological Exam: Normal Gait, Oriented x3 Assessment and Plan - Assessment and Plan (Free Text) Assessment: Abdominal pain Sepsissource GI Hypertension Diabetes History of CVA Continue antibiotics PT/OT Out of bed to chair Incentive spirometry Accu-Chek Insulin sliding scale BP control DC planning for tomorrow morning DVT GI prophylax
[2017-07-14] MEDS: Cefepime IV 1 gm in Dextrose 1 GM/50 ML BAG IVPB SCH ×2 (02:29→13:25)
[2017-07-14 06:32] LABS: BASO % 0.1 % (0.0-2.0); EOS # 0.3 K/uL (0.0-0.7); EOS % 4.5 % (0.0-4.0); HEMATOCRIT 31.7 % (35.0-51.0); LYMPH # 0.8 K/uL (1.0-4.3); LYMPH % 11.4 % (20.0-40.0); MEAN CELL VOLUME 89.9 fL (80.0-94.0); MEAN CORPUSCULAR HEMOGLOBIN 30.4 pg (27.0-31.0); MEAN CORPUSCULAR HGB CONC 33.9 g/dL (33.0-37.0); MONO # 0.9 K/uL (0.0-0.8); MONO % 13.7 % (0.0-10.0); RED CELL DISTRIBUTION WIDTH 14.2 % (11.5-14.5); WHITE BLOOD COUNT 6.6 K/uL (4.8-10.8)
[2017-07-14 07:05] LABS: ALB/GLOB RATIO 1.1 (1.0-2.1); ALKALINE PHOSPHATASE 63 U/L (38-126); ALT/SGPT 46 U/L (21-72); AST/SGOT 21 U/L (17-59); BILIRUBIN,TOTAL 0.6 mg/dL (0.2-1.3); BLOOD UREA NITROGEN 22 mg/dL (9-20); CALCIUM 9.3 mg/dl (8.6-10.4); CARBON DIOXIDE 23 mmol/L (22-30); CHLORIDE 102 mmol/L (98-107); GFR AFRICAN-AMERICAN > 60; GLUCOSE,RANDOM 109 mg/dL (75-110); POTASSIUM 4.9 mmol/L (3.6-5.2); SODIUM 136 mmol/L (132-148); TOTAL PROTEIN 6.3 g/dL (6.3-8.3)
[2017-07-14] MEDS: (Novolin R) Insulin Human Regular 100 units/ml vial SC SCH ×2 (08:17→12:10)
[2017-07-14] MEDS: Aspirin-Dipyridamole 200-25 mg ER Cap PO SCH (09:57)
[2017-07-14] MEDS: Enoxaparin 40 mg Syringe SC SCH (10:00)
--- NOTE | 2017-07-14 14:47 | CP.PCM.PN ---
Subjective - Date & Time of Evaluation Date of Evaluation: 07/14/17 Time of Evaluation: 14:20 - Subjective Subjective: Pt seen and examined today, denies any chest pain, sob, abdominal pain, c/o cough a febrile Objective - Vital Signs/Intake and Output Vital Signs (last 24 hours): Temp Pulse Resp BP Pulse Ox 98.2 F 74 20 132/71 96 07/14/17 04:00 07/14/17 08:40 07/14/17 04:00 07/14/17 09:58 07/14/17 04:00 Intake and Output: 07/14/17 07/14/17 06:59 18:59 Intake Total 560 Output Total 300 Balance 260 - Medications Medications: Current Medications Acetaminophen (Tylenol 325mg Tab) 650 mg PO Q6 PRN PRN Reason: Fever >100.4 F Last Admin: 07/14/17 02:46 Dose: 650 mg Clopidogrel Bisulfate (Plavix) 75 mg PO DAILY [facility] Last Admin: 07/14/17 09:59 Dose: 75 mg Dipyridamole/Aspirin (Aggrenox 25-200 Mg) 1 ea PO BID [facility] Last Admin: 07/14/17 09:57 Dose: 1 ea Enoxaparin Sodium (Lovenox) 40 mg SC DAILY [facility] Last Admin: 07/14/17 10:00 Dose: 40 mg Glimepiride (Amaryl) 4 mg PO ACB [facility] Last Admin: 07/14/17 08:30 Dose: 4 mg Cefepime HCl (Maxipime Iv 1 Gm Premix) 1 gm in 50 mls @ 100 mls/hr IVPB Q12H [facility] Last Admin: 07/14/17 13:25 Dose: 100 mls/hr Insulin Human Regular (Novolin R) 0 unit SC ACHS [facility] PRN Reason: Protocol Last Admin: 07/14/17 12:10 Dose: 3 unit Metoprolol Tartrate (Lopressor) 25 mg PO Q12 [facility] Last Admin: 07/14/17 09:58 Dose: 25 mg Rosuvastatin Calcium (Crestor) 10 mg PO HS [facility] Last Admin: 07/13/17 21:06 Dose: 10 mg - Labs Labs: 07/14/17 06:21 07/14/17 06:21 Assessment and Plan - Assessment and Plan (Free Text) Assessment: A/P 77 yr old male admitted for fever, pneumonia afebrile blood and urine culture - negative x 3 days d/w Dr. Madison, stable for discharge home today and f/u wi Dr. Murrieta office in 1 week discharge plan discussed with patient and family at bedside , who understands and agrees with plan patient instructed to returns to ED if symptoms returns
[2017-07-14 16:35] VITALS: BP 171/77; PULSE 81; TEMP 98.4; O2SAT 95
--- NOTE | 2017-07-17 01:09 | CP.PCM.DIS ---
Provider - Provider Date of Admission: 07/11/17 02:04 Attending physician: Marshall Madison MD Time Spent in preparation of Discharge (in minutes): 25 Diagnosis - Discharge Diagnosis (1) Sepsis Status: Acute (2) Diabetes mellitus Status: Chronic Hospital Course - Lab Results Lab Results: Micro Results 07/11/17 09:03 Urine,Clean Catch Urine Culture - Final No Growth (<1,000 CFU/ML) Most Recent Lab Values WBC 6.6 K/uL (4.8-10.8) 07/14/17 06:21 RBC 3.53 Mil/uL (4.40-5.90) L 07/14/17 06:21 Hgb 10.7 g/dL (12.0-18.0) L 07/14/17 06:21 Hct 31.7 % (35.0-51.0) L 07/14/17 06:21 MCV 89.9 fL (80.0-94.0) 07/14/17 06:21 MCH 30.4 pg (27.0-31.0) 07/14/17 06:21 MCHC 33.9 g/dL (33.0-37.0) 07/14/17 06:21 RDW 14.2 % (11.5-14.5) 07/14/17 06:21 Plt Count 165 K/uL (130-400) 07/14/17 06:21 MPV 8.0 fL (7.2-11.7) 07/14/17 06:21 Neut % (Auto) 70.3 % (50.0-75.0) 07/14/17 06:21 Lymph % (Auto) 11.4 % (20.0-40.0) L 07/14/17 06:21 [place] % (Auto) 13.7 % (0.0-10.0) H 07/14/17 06:21 Eos % (Auto) 4.5 % (0.0-4.0) H 07/14/17 06:21 Baso % (Auto) 0.1 % (0.0-2.0) 07/14/17 06:21 Neut # 4.6 K/uL (1.8-7.0) 07/14/17 06:21 Lymph # 0.8 K/uL (1.0-4.3) L 07/14/17 06:21 [place] # 0.9 K/uL (0.0-0.8) H 07/14/17 06:21 Eos # 0.3 K/uL (0.0-0.7) 07/14/17 06:21 Baso # 0.0 K/uL (0.0-0.2) 07/14/17 06:21 Neutrophils % (Manual) 79 % (50-75) H 07/11/17 00:33 Lymphocytes % (Manual) 10 % (20-40) L 07/11/17 00:33 Monocytes % (Manual) 10 % (0-10) 07/11/17 00:33 Eosinophils % (Manual) 1 % (0-4) 07/11/17 00:33 Platelet Estimate Normal (NORMAL) 07/11/17 00:33 RBC Morphology Normal 07/11/17 00:33 pO2 41 mm/Hg (30-55) 07/11/17 00:25 VBG pH 7.27 (7.32-7.43) L 07/11/17 00:25 VBG pCO2 55 mmHg (40-60) 07/11/17 00:25 VBG HCO3 22.2 mmol/L 07/11/17 00:25 VBG Total CO2 27.0 mmol/L (22-28) 07/11/17 00:25 VBG O2 Sat (Calc) 79.0 % (40-65) H 07/11/17 00:25 VBG Base Excess -2.5 mmol/L (0.0-2.0) L 07/11/17 00:25 VBG Potassium 4.9 mmol/L (3.6-5.2) 07/11/17 00:25 Sodium 137.0 mmol/l (132-148) 07/11/17 00:25 Chloride 103.0 mmol/L (98-107) 07/11/17 00:25 Glucose 167 mg/dl (75-110) H 07/11/17 00:25 Lactate 1.4 mmol/L (0.7-2.1) 07/11/17 00:25 Sodium 136 mmol/L (132-148) 07/14/17 06:21 Potassium 4.9 mmol/L (3.6-5.2) 07/14/17 06:21 Chloride 102 mmol/L (98-107) 07/14/17 06:21 Carbon Dioxide 23 mmol/L (22-30) 07/14/17 06:21 Anion Gap 17 (10-20) 07/14/17 06:21 BUN 22 mg/dL (9-20) H 07/14/17 06:21 Creatinine 1.1 MG/DL (0.8-1.5) 07/14/17 06:21 Est GFR ( Amer) > 60 07/14/17 06:21 Est GFR (Non-Af Amer) > 60 07/14/17 06:21 POC Glucose (mg/dL) 204 mg/dL (65-110) H 07/14/17 11:41 Random Glucose 109 mg/dL (75-110) 07/14/17 06:21 Calcium 9.3 mg/dl (8.6-10.4) 07/14/17 06:21 Total Bilirubin 0.6 mg/dL (0.2-1.3) 07/14/17 06:21 AST 21 U/L (17-59) 07/14/17 06:21 ALT 46 U/L (21-72) 07/14/17 06:21 Alkaline Phosphatase 63 U/L (38-126) 07/14/17 06:21 NT-Pro-B Natriuret Pep 1390 pg/mL (0-900) H 07/11/17 00:33 Total Protein 6.3 g/dL (6.3-8.3) 07/14/17 06:21 Albumin 3.3 g/dL (3.5-5.0) L 07/14/17 06:21 Globulin 3.0 gm/dL (2.2-3.9) 07/14/17 06:21 Albumin/Globulin Ratio 1.1 (1.0-2.1) 07/14/17 06:21 Lipase 43 U/L (23-300) 07/11/17 00:33 Venous Blood Potassium 4.9 mmol/L (3.6-5.2) 07/11/17 00:25 Urine Color Yellow (YELLOW) 07/11/17 01:41 Urine Clarity Clear (Clear) 07/11/17 01:41 Urine pH 5.0 (5.0-8.0) 07/11/17 01:41 Ur Specific [place] 1.017 (1.003-1.030) 07/11/17 01:41 Urine Protein 2+ mg/dL (NEGATIVE) H 07/11/17 01:41 Urine Glucose (UA) Normal mg/dL (Normal) 07/11/17 01:41 Urine Ketones Negative mg/dL (NEGATIVE) 07/11/17 01:41 Urine Blood Negative (NEGATIVE) 07/11/17 01:41 Urine Nitrate Negative (NEGATIVE) 07/11/17 01:41 Urine Bilirubin Negative (NEGATIVE) 07/11/17 01:41 Urine Urobilinogen Normal mg/dL (0.2-1.0) 07/11/17 01:41 Ur Leukocyte Esterase Neg Isabel/uL (Negative) 07/11/17 01:41 Urine WBC (Auto) 1 /hpf (0-5) 07/11/17 01:41 Urine RBC (Auto) 1 /hpf (0-3) 07/11/17 01:41 Ur Squamous Epith Cells < 1 /hpf (0-5) 07/11/17 01:41 Hyaline Casts 0-2 /lpf (0-2) 07/11/17 01:41 - Hospital Course Hospital Course: Patient was treated with IV antibiotics and responded nicely. His white cell count improved and abdominal pain resolved. Patient was discharged home on oral antibiotics Discharge Exam - Eye Exam Eye Exam: Normal appearance - Respiratory Exam Respiratory Exam: Clear to PA & Lateral, NORMAL BREATHING PATTERN - Cardiovascular Exam Cardiovascular Exam: REGULAR RHYTHM, +S1, +S2 - GI/Abdominal Exam GI & Abdominal Exam: Normal Bowel Sounds, Soft - Extremities Exam Extremities exam: normal inspection - Neurological Exam Neurological exam: Alert, Oriented x3 - Psychiatric Exam Psychiatric exam: Normal Affect, Normal Mood Discharge Plan - Discharge Medications Prescriptions: Ciprofloxacin [Cipro] 500 mg PO Q12 #14 tab Metronidazole [Flagyl] 500 mg PO Q8 #21 tablet - Follow Up Plan Condition: GOOD Disposition: HOME/ ROUTINE Instructions: Cholecystitis (DC), Cholecystitis (GEN), Sepsis (DC), Sepsis (GEN ), Acute Abdominal Pain (DC), Acute Abdominal Pain (GEN), Pneumonia (DC) Additional Instructions: Please f/u with Dr. Murrieta office in 1 week continue medication as per Med. REc. Referrals: Kojo Murrieta DO [Staff Provider] -
== END 2017-07-14 14:10 | disposition home or self-care (01) | DRG 871 ==
LOC: C.ER 23:48 → C.6T 07-11 02:04
PROVIDERS: ADMIT Internal Medicine Critical Care Medicine; ATTEND Internal Medicine Critical Care Medicine
DX: A41.9 Sepsis, unspecified organism (principal); J18.9 Pneumonia, unspecified organism; I10 Essential (primary) hypertension; R65.20 Severe sepsis without septic shock; E11.65 Type 2 diabetes mellitus with hyperglycemia; E78.5 Hyperlipidemia, unspecified; Z79.4 Long term (current) use of insulin; Z87.891 Personal history of nicotine dependence; Z86.73 Personal history of transient ischemic attack (TIA), and cerebral infarction without residual deficits; Z95.1 Presence of aortocoronary bypass graft

== ENCOUNTER 2017-08-22 16:24 | Inpatient (IN) | payer MEDICARE ==
[2017-08-22 16:25] VITALS: BMI 40.7
--- NOTE | 2017-08-22 16:58 | C.PDOC ---
History Of Present Illness 77 y/o male with a hx of bypass surgery, c/o chest pain that began today. Patient notes a brief episode of chest pain that occurred yesterday night. Pain is described as heaviness and is 6/10. Reports SOB, diaphoresis, and vomiting x3. Took 325 mg of aspirin [employer]. Denies lower extremity swelling or pain, Jaw pain, or palpitations. Time Seen by Provider: 08/22/17 16:42 Chief Complaint (Nursing): Chest Pain History Per: Patient History/Exam Limitations: no limitations Onset/Duration Of Symptoms: Hrs (today) Current Symptoms Are (Timing): Still Present Severity: Moderate Pain Scale Rating Of: 6 Quality: Pressure Recent travel outside of the [place]: No Additional History Per: Patient Past Medical History Reviewed: Historical Data, Nursing Documentation, Vital Signs Vital Signs: Last Vital Signs Temp 97.8 F 08/22/17 16:25 Pulse 78 08/22/17 17:57 Resp 18 08/22/17 17:57 BP 100/58 L 08/22/17 17:57 Pulse Ox 95 08/22/17 18:29 - Medical History PMH: Arthritis, Bronchitis, Diabetes, HTN, Hypercholesterolemia Denies: Chronic Kidney Disease Surgical History: CABG (2011), Cholecystectomy - [facility] Procedures DRAINAGE OF GALLBLADDER WITH DRAINAGE DEVICE, PERC APPROACH (05/10/17) ENDO EXCISION/DEST OF LESION OR TISSUE OF STOMACH (12/31/14) ULTRASONOGRAPHY OF RIGHT AND LEFT HEART, TRANSESOPHAGEAL (05/10/17) Family History: States: Unknown Family Hx - Social History Hx Tobacco Use: No Hx Alcohol Use: Yes (holidays) Hx Substance Use: No - Immunization History Hx Tetanus Toxoid Vaccination: No Hx Influenza Vaccination: Yes Hx Pneumococcal Vaccination: Yes Review Of Systems Except As Marked, All Systems Reviewed And Found Negative. Constitutional: Positive for: Sweats Cardiovascular: Positive for: Chest Pain. Negative for: Palpitations Respiratory: Positive for: Shortness of Breath Gastrointestinal: Positive for: Vomiting Musculoskeletal: Negative for: Leg Pain, Foot Pain, Other (Jaw pain) Physical Exam - Physical Exam Appears: Non-toxic, No Acute Distress Skin: Warm, Dry Head: Atraumatic, Normacephalic Chest: Symmetrical, No Tenderness, Other (Old medsternal scar) Cardiovascular: Rhythm Regular (NSR, normal rate), No Murmur Respiratory: Normal Breath Sounds, No Rales, No Rhonchi, No Wheezing Extremity: Normal ROM, No Pedal Edema, Capillary Refill (<2secs), No Swelling Pulses: Left Dorsalis Pedis: Normal, Right Dorsalis Pedis: Normal Neurological/Psych: Oriented x3 ED Course And Treatment - Laboratory Results Result Diagrams: 08/22/17 17:04 08/22/17 17:04 ECG: Interpreted By Me ECG Rhythm: Sinus Rhythm ECG Interpretation: Abnormal Interpretation Of ECG: Q waves in 3,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.No acute ST or T wave abnormalities.No ectopy Rate From EC O2 Sat by Pulse Oximetry: 95 (RA/nasal cannula) Pulse Ox Interpretation: Normal Medical Decision Making Medical Decision Making: Impression: * chest pain that began today.Pt with known CAD.Will admit for poss ACS.Pt is pain free after SLNTG times 2.Will admit to floor telem Plans: * Blood labs * CXR * EKG * Nitro * O2 nasal cannula * IV fluids Disposition - Disposition Disposition: HOSPITALIZED Disposition Time: 18:28 Condition: SERIOUS Forms: [facility] (Vietnamese) - Clinical Impression Clinical Impression: Crescendo angina - Scribe Statement The provider has reviewed the documentation as recorded by the Scribe Benitez rubio All medical record entries made by the Scribe were at my direction and personally dictated by me. I have reviewed the chart and agree that the record accurately reflects my personal performance of the history, physical exam, medical decision making, and the department course for this patient. I have also personally directed, reviewed, and agree with the discharge instructions and disposition.
[2017-08-22 17:16] LABS: BASO % 0.4 % (0.0-2.0); EOS # 0.3 K/uL (0.0-0.7); EOS % 3.9 % (0.0-4.0); HEMATOCRIT 37.3 % (35.0-51.0); LYMPH % 14.9 % (20.0-40.0); MEAN CELL VOLUME 91.5 fL (80.0-94.0); MEAN CORPUSCULAR HEMOGLOBIN 30.4 pg (27.0-31.0); MEAN CORPUSCULAR HGB CONC 33.3 g/dL (33.0-37.0); MEAN PLATELET VOLUME 8.2 fL (7.2-11.7); MONO # 0.7 K/uL (0.0-0.8); MONO % 11.3 % (0.0-10.0); RED CELL DISTRIBUTION WIDTH 13.6 % (11.5-14.5); WHITE BLOOD COUNT 6.5 K/uL (4.8-10.8)
[2017-08-22 17:27] LABS: INR 1.1
[2017-08-22 17:39] LABS: CHLORIDE 102 mmol/L (98-107); POTASSIUM 5.2 mmol/L (3.6-5.2); SODIUM 136 mmol/L (132-148)
[2017-08-22 17:41] LABS: BILIRUBIN,TOTAL 0.9 mg/dL (0.2-1.3); CARBON DIOXIDE 21 mmol/L (22-30); GFR AFRICAN-AMERICAN 55
[2017-08-22 17:42] LABS: ALB/GLOB RATIO 1.1 (1.0-2.1); ALKALINE PHOSPHATASE 84 U/L (38-126); ALT/SGPT 64 U/L (21-72); AST/SGOT 54 U/L (17-59); BLOOD UREA NITROGEN 38 mg/dL (9-20); CALCIUM 9.4 mg/dl (8.6-10.4); GLUCOSE,RANDOM 254 mg/dL (75-110); TOTAL PROTEIN 7.8 g/dL (6.3-8.3)
--- NOTE | 2017-08-22 17:57 | RAD ---
PROCEDURE: CHEST RADIOGRAPH, 1 VIEW HISTORY: chest pain COMPARISON: Comparison chest dated 07/11/2017 FINDINGS: LUNGS: Mild bibasilar atelectasis. PLEURA: No pneumothorax or pleural fluid seen. CARDIOVASCULAR: Sternotomy wires again noted. Heart size is within range of normal. OSSEOUS STRUCTURES: Mild degenerative changes right acromioclavicular joint. VISUALIZED UPPER ABDOMEN: Normal. OTHER FINDINGS: None. IMPRESSION: Minor bibasilar atelectasis.
[2017-08-22] MEDS ORDERED: Nitroglycerin 2% Ointment Foilpak UD TOP STA (18:52)
[2017-08-22] MEDS ORDERED: Nitroglycerin 2% Ointment Foilpak UD TOP ONE ×2 (19:15→19:17)
[2017-08-23] MEDS: (Novolog) Insulin Aspart, Recombinant 100 u/ml 10 ml vial SC SCH ×4 (08:18→22:00)
[2017-08-23] MEDS: Aspirin-Dipyridamole 200-25 mg ER Cap PO SCH ×2 (09:45→18:03)
[2017-08-23] MEDS ORDERED: Influenza Vaccine 60 mcg/0.5 mL SYR (4YR UP) IM ONE (10:00)
--- NOTE | 2017-08-23 13:06 | CARD ---
APPROVED REPORT EKG Measurement Heart [id number] <Conclusion> Normal sinus rhythm Inferior infarct, age undetermined Abnormal ECG
--- NOTE | 2017-08-23 19:16 | CP.PCM.HP ---
Past Patient History - Infectious Disease Hx of Infectious Diseases: None - Past Medical History & Family History Past Medical History?: Yes - Past Social History Smoking Status: Former Smoker - CARDIAC Hx Hypercholesterolemia: Yes Hx Hypertension: Yes - PULMONARY Hx Bronchitis: Yes - NEUROLOGICAL Hx Neurological Disorder: Yes HX Cerebrovascular Accident: Yes - HEENT Hx HEENT Problems: No - RENAL Hx Chronic Kidney Disease: No - ENDOCRINE/METABOLIC Hx Endocrine Disorders: Yes Hx Diabetes Mellitus Type 2: Yes - HEMATOLOGICAL/ONCOLOGICAL Hx Blood Disorders: Yes Hx Blood Transfusions: Yes Hx Blood Transfusion Reaction: No - INTEGUMENTARY Hx Dermatological Problems: No - MUSCULOSKELETAL/RHEUMATOLOGICAL Hx Arthritis: Yes Hx Falls: Yes - GASTROINTESTINAL Hx Gastrointestinal Disorders: Yes - GENITOURINARY/GYNECOLOGICAL Hx Genitourinary Disorders: No - PSYCHIATRIC Hx Substance Use: No - SURGICAL HISTORY Hx Cholecystectomy: Yes Hx Coronary Artery Bypass Graft: Yes (2011) - ANESTHESIA Hx Anesthesia: Yes Hx Anesthesia Reactions: No Hx Malignant Hyperthermia: No Meds Allergies/Adverse Reactions: Allergies Allergy/AdvReac Type Severity Reaction Status Date / Time No Known Allergies Allergy Verified 08/22/17 16:29 Results - Vital Signs Recent Vital Signs: Last Vital Signs Temp 97.7 F 08/23/17 15:45 Pulse 66 08/23/17 15:45 Resp 18 08/23/17 15:45 BP 133/64 08/23/17 15:45 Pulse Ox 96 08/23/17 15:45 - Labs Result Diagrams: 08/22/17 17:04 08/22/17 17:04 Labs: Laboratory Results - last 24 hr 08/22/17 08/23/17 08/23/17 21:34 01:01 06:17 POC Glucose (mg/dL) 285 H 159 H Total Creatine Kinase 48 L CK-MB (Mass) 0.95 Troponin I, Quant < 0.0120 08/23/17 08/23/17 08/23/17 08:30 12:40 16:11 POC Glucose (mg/dL) 219 H 276 H Total Creatine Kinase 52 L CK-MB (Mass) 1.15 Troponin I, Quant < 0.0120
--- NOTE | 2017-08-23 22:49 | CP.PCM.CON ---
History of Present Illness - History of Present Illness History of Present Illness: CAD s/p CABG admitted for chest pain ECHO and stress test in am 77 y/o male with a hx of bypass surgery, c/o chest pain that began yesterday. Patient notes a brief episode of chest pain that occurred yesterday night. Pain is described as heaviness and is 6/10. Reports SOB, diaphoresis, and vomiting x3. 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 Denies lower extremity swelling or pain, Jaw pain, or palpitations. Chief Complaint (Nursing): Chest Pain History Per: Patient History/Exam Limitations: no limitations Onset/Duration Of Symptoms: Hrs Current Symptoms Are (Timing): Resolved Severity: Moderate Pain Scale Rating Of: 6 Quality: Pressure Recent travel outside of the [place]: No Additional History Per: Patient - Medical History PMH: Arthritis, Bronchitis, Diabetes, HTN, Hypercholesterolemia Denies: Chronic Kidney Disease Surgical History: CABG (2011), Cholecystectomy - [facility] Procedures DRAINAGE OF GALLBLADDER WITH DRAINAGE DEVICE, PERC APPROACH (05/10/17) ENDO EXCISION/DEST OF LESION OR TISSUE OF STOMACH (12/31/14) ULTRASONOGRAPHY OF RIGHT AND LEFT HEART, TRANSESOPHAGEAL (05/10/17) Family History: States: Unknown Family Hx - Social History Hx Tobacco Use: No Hx Alcohol Use: Yes (holidays) Hx Substance Use: No - Immunization History Hx Tetanus Toxoid Vaccination: No Hx Influenza Vaccination: Yes Hx Pneumococcal Vaccination: Yes Review Of Systems Except As Marked, All Systems Reviewed And Found Negative. Constitutional: Positive for: Sweats Cardiovascular: Positive for: Chest Pain. Negative for: Palpitations Respiratory: Positive for: Shortness of Breath Gastrointestinal: Positive for: Vomiting Musculoskeletal: Negative for: Leg Pain, Foot Pain, Other (Jaw pain) Physical Exam - Physical Exam Appears: Non-toxic, No Acute Distress Skin: Warm, Dry Head: Atraumatic, Normacephalic Chest: Symmetrical, No Tenderness, Other (Old medsternal scar) Cardiovascular: Rhythm Regular (NSR, normal rate), No Murmur Respiratory: Normal Breath Sounds, No Rales, No Rhonchi, No Wheezing Extremity: Normal ROM, No Pedal Edema, Capillary Refill (<2secs), No Swelling Pulses: Left Dorsalis Pedis: Normal, Right Dorsalis Pedis: Normal Neurological/Psych: Oriented x3 Past Patient History - Infectious Disease Hx of Infectious Diseases: None - Past Medical History & Family History Past Medical History?: Yes - Past Social History Smoking Status: Former Smoker - CARDIAC Hx Hypercholesterolemia: Yes Hx Hypertension: Yes - PULMONARY Hx Bronchitis: Yes - NEUROLOGICAL Hx Neurological Disorder: Yes HX Cerebrovascular Accident: Yes - HEENT Hx HEENT Problems: No - RENAL Hx Chronic Kidney Disease: No - ENDOCRINE/METABOLIC Hx Endocrine Disorders: Yes Hx Diabetes Mellitus Type 2: Yes - HEMATOLOGICAL/ONCOLOGICAL Hx Blood Disorders: Yes Hx Blood Transfusions: Yes Hx Blood Transfusion Reaction: No - INTEGUMENTARY Hx Dermatological Problems: No - MUSCULOSKELETAL/RHEUMATOLOGICAL Hx Arthritis: Yes Hx Falls: Yes - GASTROINTESTINAL Hx Gastrointestinal Disorders: Yes - GENITOURINARY/GYNECOLOGICAL Hx Genitourinary Disorders: No - PSYCHIATRIC Hx Substance Use: No - SURGICAL HISTORY Hx Cholecystectomy: Yes Hx Coronary Artery Bypass Graft: Yes (2011) - ANESTHESIA Hx Anesthesia: Yes Hx Anesthesia Reactions: No Hx Malignant Hyperthermia: No Meds Home Medications: Home Medication List Medication Instructions Recorded Confirmed Type Famotidine [Pepcid] 20 mg PO BID tab 08/25/17 Rx Allergies/Adverse Reactions: Allergies Allergy/AdvReac Type Severity Reaction Status Date / Time No Known Allergies Allergy Verified 08/22/17 16:29 - Medications Medications: Current Medications Acetaminophen (Tylenol 325mg Tab) 650 mg PO Q6 PRN PRN Reason: Fever >100.4 F Ciprofloxacin (Cipro) 500 mg PO Q12 [facility] Last Admin: 08/23/17 21:21 Dose: Not Given Dipyridamole/Aspirin (Aggrenox 25-200 Mg) 1 ea PO BID [facility] Last Admin: 08/23/17 18:03 Dose: 1 ea Famotidine (Pepcid) 20 mg PO BID [facility] Last Admin: 08/23/17 18:04 Dose: 20 mg Glimepiride (Amaryl) 4 mg PO DAILY [facility] Last Admin: 08/23/17 09:44 Dose: 4 mg Heparin Sodium (Porcine) (Heparin) 5,000 units SC Q8 [facility] Last Admin: 08/23/17 21:22 Dose: 5,000 units Insulin Aspart (Novolog) 0 unit SC ACHS [facility] PRN Reason: Protocol Last Admin: 08/23/17 18:03 Dose: 4 unit Metoprolol Tartrate (Lopressor) 25 mg PO Q12 [facility] Last Admin: 08/23/17 21:46 Dose: 25 mg Metronidazole (Flagyl) 500 mg PO Q8 [facility] Last Admin: 08/23/17 21:21 Dose: Not Given Rosuvastatin Calcium (Crestor) 10 mg PO HS [facility] Last Admin: 08/23/17 21:46 Dose: 10 mg Results - Vital Signs Recent Vital Signs: Last Vital Signs Temp 97.7 F 08/23/17 15:45 Pulse 66 08/23/17 15:45 Resp 18 08/23/17 15:45 BP 152/77 H 08/23/17 21:46 Pulse Ox 96 08/23/17 15:45 - Labs Result Diagrams: 08/22/17 17:04 08/22/17 17:04 Labs: Laboratory Results - last 24 hr 08/23/17 08/23/17 08/23/17 01:01 06:17 08:30 POC Glucose (mg/dL) 159 H Total Creatine Kinase 48 L 52 L CK-MB (Mass) 0.95 1.15 Troponin I, Quant < 0.0120 < 0.0120 08/23/17 08/23/17 08/23/17 12:40 16:11 21:15 POC Glucose (mg/dL) 219 H 276 H 205 H Total Creatine Kinase CK-MB (Mass) Troponin I, Quant Assessment & Plan - Assessment and Plan (Free Text) Assessment: 1. CVA 2. CAD s/p CABG 3. DM 2 4. HTN Will check ECHO and Stress test
[2017-08-24 00:21] VITALS: RESP 20
[2017-08-24] MEDS ORDERED: Aminophylline 25 mg/ml Inj ONE (07:18)
[2017-08-24] MEDS: (Novolog) Insulin Aspart, Recombinant 100 u/ml 10 ml vial SC SCH ×3 (07:59→22:20)
[2017-08-24] MEDS: Aspirin-Dipyridamole 200-25 mg ER Cap PO SCH ×2 (09:55→17:58)
--- NOTE | 2017-08-24 15:20 | CP.PCM.PN ---
Subjective - Date & Time of Evaluation Date of Evaluation: 08/24/17 Time of Evaluation: 15:20 Objective - Vital Signs/Intake and Output Vital Signs (last 24 hours): Temp Pulse Resp BP Pulse Ox 98.0 F 82 20 129/74 96 08/24/17 08:40 08/24/17 08:40 08/24/17 08:40 08/24/17 09:38 08/24/17 08:40 - Medications Medications: Current Medications Acetaminophen (Tylenol 325mg Tab) 650 mg PO Q6 PRN PRN Reason: Fever >100.4 F Ciprofloxacin (Cipro) 500 mg PO Q12 [facility] Last Admin: 08/24/17 09:55 Dose: 500 mg Dipyridamole/Aspirin (Aggrenox 25-200 Mg) 1 ea PO BID [facility] Last Admin: 08/24/17 09:55 Dose: 1 ea Famotidine (Pepcid) 20 mg PO BID [facility] Last Admin: 08/24/17 09:55 Dose: 20 mg Glimepiride (Amaryl) 4 mg PO DAILY [facility] Last Admin: 08/24/17 09:55 Dose: 4 mg Heparin Sodium (Porcine) (Heparin) 5,000 units SC Q8 [facility] Last Admin: 08/24/17 14:25 Dose: Not Given Insulin Aspart (Novolog) 0 unit SC ACHS [facility] PRN Reason: Protocol Last Admin: 08/24/17 07:59 Dose: Not Given Metoprolol Tartrate (Lopressor) 25 mg PO Q12 [facility] Last Admin: 08/24/17 09:38 Dose: 25 mg Metronidazole (Flagyl) 500 mg PO Q8 [facility] Last Admin: 08/24/17 14:25 Dose: Not Given Rosuvastatin Calcium (Crestor) 10 mg PO HS [facility] Last Admin: 08/23/17 21:46 Dose: 10 mg - Labs Labs: 08/22/17 17:04 08/22/17 17:04 PT 12.0 SECONDS (9.7-12.2) 08/22/17 17:04 INR 1.1 08/22/17 17:04 APTT 64 SECONDS (21-34) H 08/22/17 17:04
--- NOTE | 2017-08-24 23:09 | CP.PCM.PN ---
Subjective - Date & Time of Evaluation Date of Evaluation: 08/24/17 Time of Evaluation: 08:30 - Subjective Subjective: Patient seen and evaluated Denies chest pain and dyspnea Review Of Systems Except As Marked, All Systems Reviewed And Found Negative. Constitutional: Positive for: Sweats Cardiovascular: Positive for: Chest Pain. Negative for: Palpitations Respiratory: Positive for: Shortness of Breath Gastrointestinal: Positive for: Vomiting Musculoskeletal: Negative for: Leg Pain, Foot Pain, Other (Jaw pain) Physical Exam - Physical Exam Appears: Non-toxic, No Acute Distress Skin: Warm, Dry Head: Atraumatic, Normacephalic Chest: Symmetrical, No Tenderness, Other (Old medsternal scar) Cardiovascular: Rhythm Regular (NSR, normal rate), No Murmur Respiratory: Normal Breath Sounds, No Rales, No Rhonchi, No Wheezing Extremity: Normal ROM, No Pedal Edema, Capillary Refill (<2secs), No Swelling Pulses: Left Dorsalis Pedis: Normal, Right Dorsalis Pedis: Normal Neurological/Psych: Oriented x3 Objective - Vital Signs/Intake and Output Vital Signs (last 24 hours): Temp Pulse Resp BP Pulse Ox 97.9 F 64 20 146/76 98 08/24/17 15:30 08/24/17 17:30 08/24/17 15:30 08/24/17 22:19 08/24/17 15:30 - Medications Medications: Current Medications Acetaminophen (Tylenol 325mg Tab) 650 mg PO Q6 PRN PRN Reason: Fever >100.4 F Dipyridamole/Aspirin (Aggrenox 25-200 Mg) 1 ea PO BID [facility] Last Admin: 08/24/17 17:58 Dose: 1 ea Famotidine (Pepcid) 20 mg PO BID [facility] Last Admin: 08/24/17 17:58 Dose: 20 mg Glimepiride (Amaryl) 4 mg PO DAILY [facility] Last Admin: 08/24/17 09:55 Dose: 4 mg Heparin Sodium (Porcine) (Heparin) 5,000 units SC Q8 [facility] Last Admin: 08/24/17 22:19 Dose: 5,000 units Insulin Aspart (Novolog) 0 unit SC ACHS [facility] PRN Reason: Protocol Last Admin: 08/24/17 22:20 Dose: Not Given Metoprolol Tartrate (Lopressor) 25 mg PO Q12 [facility] Last Admin: 08/24/17 22:19 Dose: 25 mg Rosuvastatin Calcium (Crestor) 10 mg PO HS [facility] Last Admin: 08/24/17 22:18 Dose: 10 mg - Labs Labs: 08/22/17 17:04 08/22/17 17:04 PT 12.0 SECONDS (9.7-12.2) 08/22/17 17:04 INR 1.1 08/22/17 17:04 APTT 64 SECONDS (21-34) H 08/22/17 17:04 Assessment and Plan - Assessment and Plan (Free Text) Assessment: 1. CVA 2. CAD s/p CABG 3. DM 2 4. 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 yeh
[2017-08-25 00:40] VITALS: O2SAT 96
[2017-08-25 08:24] VITALS: TEMP 97.2
[2017-08-25] MEDS: (Novolog) Insulin Aspart, Recombinant 100 u/ml 10 ml vial SC SCH (08:40)
[2017-08-25] MEDS: Aspirin-Dipyridamole 200-25 mg ER Cap PO SCH (10:31)
[2017-08-25 10:32] VITALS: BP 131/67
[2017-08-25 12:45] VITALS: PULSE 76
--- NOTE | 2017-08-25 15:49 | CP.PCM.DIS ---
Provider - Provider Date of Admission: 08/22/17 18:26 Attending physician: Marshall Madison MD [facility] Course - Lab Results Lab Results: Most Recent Lab Values WBC 6.5 K/uL (4.8-10.8) 08/22/17 17:04 RBC 4.08 Mil/uL (4.40-5.90) L 08/22/17 17:04 Hgb 12.4 g/dL (12.0-18.0) 08/22/17 17:04 Hct 37.3 % (35.0-51.0) 08/22/17 17:04 MCV 91.5 fL (80.0-94.0) 08/22/17 17: MCH 30.4 pg (27.0-31.0) 08/22/17 17:04 MCHC 33.3 g/dL (33.0-37.0) 08/22/17 17:04 RDW 13.6 % (11.5-14.5) 08/22/17 17:04 Plt Count 168 K/uL (130-400) 08/22/17 17:04 MPV 8.2 fL (7.2-11.7) 08/22/17 17:04 Neut % (Auto) 69.5 % (50.0-75.0) 08/22/17 17:04 Lymph % (Auto) 14.9 % (20.0-40.0) L 08/22/17 17:04 [place] % (Auto) 11.3 % (0.0-10.0) H 08/22/17 17:04 Eos % (Auto) 3.9 % (0.0-4.0) 08/22/17 17:04 Baso % (Auto) 0.4 % (0.0-2.0) 08/22/17 17:04 Neut # 4.5 K/uL (1.8-7.0) 08/22/17 17:04 Lymph # 1.0 K/uL (1.0-4.3) 08/22/17 17:04 [place] # 0.7 K/uL (0.0-0.8) 08/22/17 17:04 Eos # 0.3 K/uL (0.0-0.7) 08/22/17 17:04 Baso # 0.0 K/uL (0.0-0.2) 08/22/17 17:04 PT 12.0 SECONDS (9.7-12.2) 08/22/17 17:04 INR 1.1 08/22/17 17:04 APTT 64 SECONDS (21-34) H 08/22/17 17:04 Sodium 136 mmol/L (132-148) 08/22/17 17:04 Potassium 5.2 mmol/L (3.6-5.2) 08/22/17 17:04 Chloride 102 mmol/L (98-107) 08/22/17 17:04 Carbon Dioxide 21 mmol/L (22-30) L 08/22/17 17:04 Anion Gap 18 (10-20) 08/22/17 17:04 BUN 38 mg/dL (9-20) H 08/22/17 17:04 Creatinine 1.5 mg/dL (0.8-1.5) 08/22/17 17:04 Est GFR ( Amer) 55 08/22/17 17:04 Est GFR (Non-Af Amer) 46 08/22/17 17:04 POC Glucose (mg/dL) 276 mg/dL (65-110) H 08/25/17 13:02 Random Glucose 254 mg/dL (75-110) H 08/22/17 17:04 Calcium 9.4 mg/dl (8.6-10.4) 08/22/17 17:04 Total Bilirubin 0.9 mg/dL (0.2-1.3) 08/22/17 17:04 AST 54 U/L (17-59) 08/22/17 17:04 ALT 64 U/L (21-72) 08/22/17 17:04 Alkaline Phosphatase 84 U/L (38-126) 08/22/17 17:04 Total Creatine Kinase 52 U/L (55-170) L 08/23/17 08:30 CK-MB (Mass) 1.15 ng/mL (0.0-3.38) 08/23/17 08:30 Troponin I < 0.0120 ng/mL (0.00-0.120) 08/22/17 17:04 Troponin I, Quant < 0.0120 ng/mL (0.00-0.120) 08/23/17 08:30 NT-Pro-B Natriuret Pep 243 pg/mL (0-900) 08/22/17 17:04 Total Protein 7.8 g/dL (6.3-8.3) 08/22/17 17:04 Albumin 4.1 g/dL (3.5-5.0) 08/22/17 17:04 Globulin 3.7 gm/dL (2.2-3.9) 08/22/17 17:04 Albumin/Globulin Ratio 1.1 (1.0-2.1) 08/22/17 17:04 Discharge Plan - Follow Up Plan Condition: SERIOUS Disposition: HOME/ ROUTINE Instructions: Chest Pain (DC), Chest Pain (GEN) Additional Instructions: PLEASE FOLLOW UP WITH YOUR PMD AND CARDIOLOGY IN THE OFFICE-- CALL FOR AN APPOINTMENT CONTINUE HOME MEDS RETURN TO ER FOR ANY WORSENING S/S Referrals: Darnell Yeung MD [Staff Provider] - Marshall Madison MD [Staff Provider] -
== END 2017-08-25 14:07 | disposition home or self-care (01) | DRG 303 ==
LOC: C.ER 16:24 → C.9E 18:26 → C.6T 20:19 → C.9E 20:25 → C.6T 20:28
PROVIDERS: ADMIT Internal Medicine Critical Care Medicine; ATTEND Internal Medicine Critical Care Medicine
DX: I25.10 Atherosclerotic heart disease of native coronary artery without angina pectoris (principal); E11.9 Type 2 diabetes mellitus without complications; I10 Essential (primary) hypertension; Z86.73 Personal history of transient ischemic attack (TIA), and cerebral infarction without residual deficits; Z87.891 Personal history of nicotine dependence; Z95.1 Presence of aortocoronary bypass graft; E78.00 Pure hypercholesterolemia, unspecified

== ENCOUNTER 2017-08-27 21:35 | Emergency (ER) | payer MEDICARE ==
[2017-08-27 21:35] VITALS: BMI 40.7
[2017-08-27] MEDS ORDERED: Sodium Chloride 0.9% 1,000 ML IV ONE (22:36)
--- NOTE | 2017-08-27 22:36 | C.PDOC ---
History Of Present Illness Patient presents to the ER with a complaint of elevated blood sugar after he noticed it was high at approximately 17:40. Patient took 5 units of insulin at home; on arrival patient's blood sugar is 409. Patient denies fever, chills, nausea, vomiting, or vision changes. Time Seen by Provider: 08/27/17 22:36 Chief Complaint (Nursing): High Blood Sugar History Per: Patient History/Exam Limitations: no limitations Onset/Duration Of Symptoms: Hrs Current Symptoms Are (Timing): Still Present Severity: Mild Pain Scale Rating Of: 4 Current Diabetic Medications: Insulin Causative (Exacerbating) Factor(s): Other (Not known) Associated Infectious Symptoms: denies: Cough, Sore Throat, Sinus Congestion, Dysuria, Urinary Urgency, Urinary Frequency, Nausea, Vomiting, Diarrhea Treatment Prior To Provider Evaluation: None Recent travel outside of the [place]: No Past Medical History Reviewed: Historical Data, Nursing Documentation, Vital Signs Vital Signs: Last Vital Signs Temp 97.6 F 08/27/17 21:56 Pulse 87 08/27/17 21:56 Resp 20 08/27/17 21:56 BP 164/80 H 08/27/17 21:56 Pulse Ox 96 08/27/17 22:54 - Medical History PMH: Arthritis, Bronchitis, Diabetes, HTN, Hypercholesterolemia Surgical History: CABG (2011), Cholecystectomy - [facility] Procedures DRAINAGE OF GALLBLADDER WITH DRAINAGE DEVICE, PERC APPROACH (05/10/17) ENDO EXCISION/DEST OF LESION OR TISSUE OF STOMACH (12/31/14) ULTRASONOGRAPHY OF RIGHT AND LEFT HEART, TRANSESOPHAGEAL (05/10/17) Family History: States: No Known Family Hx - Social History Hx Tobacco Use: No Hx Alcohol Use: No Hx Substance Use: No - Immunization History Hx Tetanus Toxoid Vaccination: No Hx Influenza Vaccination: Yes Hx Pneumococcal Vaccination: Yes Review Of Systems Constitutional: Negative for: Fever, Chills Eyes: Negative for: Vision Change Gastrointestinal: Negative for: Nausea, Vomiting Physical Exam - Physical Exam Appears: Non-toxic, No Acute Distress Skin: Warm, Dry Head: Normacephalic Oral Mucosa: Moist Neck: Supple Chest: Symmetrical Cardiovascular: Rhythm Regular Respiratory: No Rales, No Rhonchi, No Wheezing Gastrointestinal/Abdominal: Soft, No Tenderness, Other (Obese) Back: No CVA Tenderness Extremity: Normal ROM Extremity: Bilateral: Atraumatic Pulses: Left Dorsalis Pedis: Normal, Right Dorsalis Pedis: Normal Neurological/Psych: Oriented x3, Normal Speech, Normal Cognition Gait: Steady ED Course And Treatment - Laboratory Results Result Diagrams: 08/27/17 22:40 08/27/17 22:40 O2 Sat by Pulse Oximetry: 96 (Room air) Pulse Ox Interpretation: Normal Progress Note: Blood work and urinalysis ordered. IV fluids administered. Reevaluation Time: 00:27 Reassessment Condition: Improved Medical Decision Making Medical Decision Making: Upon provider reevaluation patient is feeling better, is medically stable, and requires no further treatment in the ED at this time. Patient will be discharged home . Counseling was provided and all questions were answered regarding diagnosis and need for follow up with dr arrington. There is agreement to discharge plan. Return if symptoms persist or worsen. Disposition Counseled Patient/Family Regarding: Studies Performed, Diagnosis, Need For Followup - Disposition Referrals: Kojo Arrington DO [Staff Provider] - Disposition: HOME/ ROUTINE Disposition Time: 22:36 Condition: FAIR Instructions: Diabetic Hyperglycemia (ED) Forms: [employer] (Kosovan) - Clinical Impression Clinical Impression: Hyperglycemia - Scribe Statement The provider has reviewed the documentation as recorded by the Scribe Dale Lee All medical record entries made by the Scribe were at my direction and personally dictated by me. I have reviewed the chart and agree that the record accurately reflects my personal performance of the history, physical exam, medical decision making, and the department course for this patient. I have also personally directed, reviewed, and agree with the discharge instructions and disposition.
[2017-08-27 22:43] LABS: BASO % 0.3 % (0.0-2.0); EOS # 0.2 K/uL (0.0-0.7); EOS % 3.1 % (0.0-4.0); HEMATOCRIT 37.1 % (35.0-51.0); LYMPH % 14.4 % (20.0-40.0); MEAN CELL VOLUME 93.1 fL (80.0-94.0); MEAN CORPUSCULAR HEMOGLOBIN 30.7 pg (27.0-31.0); MEAN PLATELET VOLUME 8.7 fL (7.2-11.7); MONO # 0.8 K/uL (0.0-0.8); MONO % 12.2 % (0.0-10.0); NRBC % 0.1 % (0.0-2.0); RED CELL DISTRIBUTION WIDTH 13.6 % (11.5-14.5); WHITE BLOOD COUNT 6.8 K/uL (4.8-10.8)
[2017-08-27 22:45] LABS: URINE BILIRUBIN NEGATIVE (NEGATIVE); URINE BLOOD NEGATIVE (NEGATIVE); URINE COLOR Straw (YELLOW); URINE GLUCOSE (UA) 3+ mg/dL (Normal); URINE KETONE NEGATIVE (NEGATIVE); URINE LEUKOCYTE ESTERASE NEG Leu/uL (Negative); URINE PROTEIN NEGATIVE (NEGATIVE); URINE UROBILINOGEN NORMAL mg/dL (0.2-1.0)
[2017-08-27 22:52] LABS: CHLORIDE 98 mmol/L (98-107); POTASSIUM 5.5 mmol/L (3.6-5.2); SODIUM 131 mmol/L (132-148)
[2017-08-27 22:54] LABS: BILIRUBIN,TOTAL 0.5 mg/dL (0.2-1.3); GFR AFRICAN-AMERICAN 55
[2017-08-27 22:55] LABS: ALB/GLOB RATIO 1.4 (1.0-2.1); ALKALINE PHOSPHATASE 92 U/L (38-126); ALT/SGPT 140 U/L (21-72); AST/SGOT 30 U/L (17-59); BLOOD UREA NITROGEN 37 mg/dL (9-20); CALCIUM 8.8 mg/dl (8.6-10.4); CARBON DIOXIDE 22 mmol/L (22-30); TOTAL PROTEIN 7.3 g/dL (6.3-8.3)
[2017-08-27 22:57] LABS: GLUCOSE,RANDOM 484 mg/dL (75-110)
[2017-08-27] MEDS ORDERED: (Novolin R) Insulin Human Regular 100 units/ml vial IV ONE (23:05)
[2017-08-27] MEDS ORDERED: (Novolin R) Insulin Human Regular 100 units/ml vial ONE (23:41)
[2017-08-27 23:54] LABS: VENOUS BLOOD GAS BASE EXCESS -1.9 mmol/L (0.0-2.0); VENOUS BLOOD GAS PCO2 53 mmHg (40-60); VENOUS BLOOD PH 7.29 (7.32-7.43)
[2017-08-28 00:40] VITALS: BP 142/56; PULSE 72; RESP 16; TEMP 98.4; O2SAT 97
== END 2017-08-28 00:40 | disposition home or self-care (01) ==
LOC: C.ER 21:35
DX: E11.65 Type 2 diabetes mellitus with hyperglycemia (principal); Z79.4 Long term (current) use of insulin
CPT/HCPCS: 80053; 81001; 82009; 82803; 82948; 83690; 85025; 96374; 99284; J7040

== ENCOUNTER 2018-10-23 19:34 | Inpatient (IN) | payer MEDICARE ==
[2018-10-23 19:34] VITALS: BMI 40.7
[2018-10-23] MEDS ORDERED: Sodium Chloride 0.9% 1,000 ML IV ONE (20:24)
--- NOTE | 2018-10-23 20:36 | C.PDOC ---
History Of Present Illness 78 year old male presents to the ED c/o right flank pain, hematuria, fever, chills, SOB. Patient states his abdominal pain and hematuria has been worsening since this morning. Patient is speaking in 3-4 sentences. Patient denies nausea, vomit, diarrhea, rash, weakness, numbness. Time Seen by Provider: 10/23/18 20:23 Chief Complaint (Nursing): Dizziness/Lightheaded History Per: Patient History/Exam Limitations: no limitations Onset/Duration Of Symptoms: Hrs Current Symptoms Are (Timing): Still Present Seizure Or Post-ictal Symptoms: None Fall Associated With With Symptoms: No Severity: Moderate Pain Scale Rating Of: 5 Recent travel outside of the [place]: No Additional History Per: Patient Past Medical History Reviewed: Historical Data, Nursing Documentation, Vital Signs Vital Signs: Last Vital Signs Temp 100.0 F H 10/23/18 19:35 Pulse 114 H 10/23/18 19:35 Resp 34 H 10/23/18 20:07 BP 156/85 H 10/23/18 19:35 Pulse Ox 92 L 10/23/18 19:35 - Medical History PMH: Arthritis, Bronchitis, Diabetes, HTN, Hypercholesterolemia Denies: Chronic Kidney Disease Surgical History: CABG (2011), Cholecystectomy - [facility] Procedures DRAINAGE OF GALLBLADDER WITH DRAINAGE DEVICE, PERC APPROACH (05/10/17) ENDO EXCISION/DEST OF LESION OR TISSUE OF STOMACH (12/31/14) ULTRASONOGRAPHY OF RIGHT AND LEFT HEART, TRANSESOPHAGEAL (05/10/17) Family History: States: Unknown Family Hx - Social History Hx Tobacco Use: No Hx Alcohol Use: No Hx Substance Use: No - Immunization History Hx Tetanus Toxoid Vaccination: No Hx Influenza Vaccination: Yes Hx Pneumococcal Vaccination: Yes Review Of Systems Constitutional: Negative for: Fever, Chills Eyes: Negative for: Vision Change Cardiovascular: Negative for: Chest Pain, Palpitations Respiratory: Positive for: Shortness of Breath. Negative for: Cough Gastrointestinal: Positive for: Abdominal Pain. Negative for: Nausea, Vomiting Genitourinary: Positive for: Hematuria Musculoskeletal: Positive for: Back Pain Skin: Negative for: Rash Neurological: Negative for: Weakness, Numbness, Headache Physical Exam - Physical Exam Appears: Non-toxic, Other (in moderate discomfort) Skin: Warm, Dry Head: Normacephalic Eye(s): bilateral: Normal Inspection Oral Mucosa: Moist Neck: Supple Chest: Symmetrical Cardiovascular: Rhythm Regular Respiratory: Decreased Breath Sounds, No Rales, Rhonchi (scattered), No Wheezing Gastrointestinal/Abdominal: Soft, Tenderness (diffuse, but worse rlq), Distention, No Guarding, No Rebound, Other (tympanic to percussion, glucose meter on left abdominal wall) Back: Normal Inspection Extremity: Normal ROM Extremity: Bilateral: Atraumatic, Normal Color And Temperature, Normal ROM, Other (trace pedal edema) Pulses: Left Dorsalis Pedis: Normal, Right Dorsalis Pedis: Normal Neurological/Psych: Oriented x3, Normal Speech, Normal Cognition Gait: With Assistance ED Course And Treatment - Laboratory Results Result Diagrams: 10/23/18 20:50 10/23/18 20:50 ECG: Interpreted By Me, Viewed By Me O2 Sat by Pulse Oximetry: 92 Pulse Ox Interpretation: Abnormal - Radiology CXR: Interpreted by Me, Viewed By Me Progress Note: Plan: - VBG. - EKG. - Labs. - CXR. - IV fluids. - Tylenol 975 mg PO. - Blood culture. - UA. spoke with the surgical residen t and will see the patient in the ed Critical Care Time - Critical Care Note Total Time (in mins): 30 Documented critical care: time excludes all time spent performing seperately billable procedures. Disposition Discussed With : Marshall Madison Comment: accepted the pt on his service and took over the care at 11:53 PM Doctor Will See Patient In The: Hospital Counseled Patient/Family Regarding: Studies Performed, Diagnosis - Disposition Disposition: HOSPITALIZED Disposition Time: 20:36 Condition: GUARDED Forms: [facility] (Burkinan) - POA Present On Arrival: Poor Glycemic Control - Clinical Impression Clinical Impression: Abdominal pain, Acute appendicitis with rupture, Renal insufficiency - Scribe Statement The provider has reviewed the documentation as recorded by the Scribe Kurt Pratt All medical record entries made by the Scribe were at my direction and personally dictated by me. I have reviewed the chart and agree that the record accurately reflects my personal performance of the history, physical exam, medical decision making, and the department course for this patient. I have also personally directed, reviewed, and agree with the discharge instructions and disposition. Decision To Admit - Pt Status Changed To: Hospital Disposition Of: Inpatient - Admit Certification Admit to Inpatient:: After my assessment, the patient will require hospitalization for at least two midnights. This is because of the severity of symptoms shown, intensity of services needed, and/or the medical risk in this patient being treated as an outpatient. - InPatient: Physician Admission Certification: I certify that this patient requires 2 or more midnights of care for the following reason:: After my assessment, the patient will require hospitalization for at least two midnights. This is bec ause of the severity of symptoms shown, intensity of services needed, and/or the medical risk in this patient being treated as an outpatient. - . Bed Request Type: Telemetry Admitting Physician: Marshall Madison Patient Diagnosis: Abdominal pain, Acute appendicitis with rupture, Renal insufficiency
[2018-10-23] MEDS ORDERED: Sodium Chloride 0.9% 1,000 ML ONE (20:51)
[2018-10-23 20:53] LABS: VENOUS BLOOD GAS BASE EXCESS 0.6 mmol/L (0.0-2.0); VENOUS BLOOD GAS PCO2 52 mmHg (40-60); VENOUS BLOOD GAS PO2 51 mm/Hg (30-55); VENOUS BLOOD PH 7.33 (7.32-7.43)
[2018-10-23 21:04] LABS: BASO # 0.1 K/uL (0.0-0.2); BASO % 0.7 % (0.0-2.0); HEMOGLOBIN 13.7 g/dL (12.0-18.0); LYMPH # 0.8 K/uL (1.0-4.3); MEAN CORPUSCULAR HEMOGLOBIN 29.2 pg (27.0-31.0); MEAN CORPUSCULAR HGB CONC 32.3 g/dL (33.0-37.0); MEAN PLATELET VOLUME 8.5 fL (7.2-11.7); MONO % 9.8 % (0.0-10.0); NEUT # 17.2 K/uL (1.8-7.0); NEUT % 85.5 % (50.0-75.0); PLATELET COUNT 167 K/uL (130-400); RBC 4.68 Mil/uL (4.40-5.90); RED CELL DISTRIBUTION WIDTH 13.6 % (11.5-14.5); WHITE BLOOD COUNT 20.2 K/uL (4.8-10.8)
[2018-10-23 21:06] LABS: MEAN CELL VOLUME 90.5 fL (80.0-94.0)
[2018-10-23 21:13] LABS: INR 1.5; PROTHROMBIN TIME 15.9 SECONDS (9.7-12.2)
[2018-10-23] MEDS ORDERED: Piperacillin/Tazobact 3.375 gm 100 ML IVPB STA (21:13)
[2018-10-23 21:23] LABS: ALB/GLOB RATIO 1.3 (1.0-2.1); ALBUMIN 4.1 g/dL (3.5-5.0); CALCIUM 9.1 mg/dl (8.6-10.4)
[2018-10-23] MEDS ORDERED: Piperacillin/Tazobact 3.375 gm 100 ML IVPB ONE (21:26)
[2018-10-23 22:10] LABS: SQUAMOUS EPITHIAL 2 /hpf (0-5); URINE AMORPHOUS SEDIMENT RARE /ul (<OCC); URINE BACTERIA RARE (<OCC); URINE BILIRUBIN NEGATIVE (NEGATIVE); URINE BLOOD 1+ (NEGATIVE); URINE CLARITY Hazy (Clear); URINE COLOR Amber (YELLOW); URINE GLUCOSE (UA) NORMAL (Normal); URINE LEUKOCYTE ESTERASE NEG Leu/uL (Negative); URINE PROTEIN 3+ mg/dL (NEGATIVE)
[2018-10-23 22:46] LABS: BANDS 1 % (0-2); LYMPHOCYTE 3 % (20-40); MONOCYTE 7 % (0-10); NEUTROPHIL 89 % (50-75); PLATELET ESTIMATE NORMAL (NORMAL); TOTAL CELLS COUNTED 100
[2018-10-23] MEDS ORDERED: metroNIDAZOLE IV 500 mg/100 ml 500 MG/100 ML BAG IVPB SCH (23:45)
[2018-10-24] MEDS ORDERED: Benzoin Compound Tincture (60 ml) ONE (00:19)
[2018-10-24] MEDS: Sodium Chloride 0.9% 1,000 ML IV SCH ×3 (00:21→22:08)
[2018-10-24] MEDS: Piperacillin/Tazobact 3.375 GM in Sodium Chloride 100 ML IVPB SCH ×2 (00:22→09:15)
[2018-10-24] MEDS ORDERED: metroNIDAZOLE IV 500 mg/100 ml 500 MG/100 ML BAG ONE (00:29)
[2018-10-24] MEDS ORDERED: metroNIDAZOLE IV 500 mg/100 ml 500 MG/100 ML BAG IVPB STA (00:34)
--- NOTE | 2018-10-24 05:38 | CP.PCM.CON ---
History of Present Illness - History of Present Illness History of Present Illness: General Surgery Cons Note for Dr. Delacruz This is a 78M with a PMH of CAD, HTN, DM, HLD, who presents to the ER due to abdominal pain. Durring my patient encounter the patient is minimally verbal both in [place] and in [place]. He endorses RLQ abdominal pain of the pst day. He does not endorse ay changes in character or qualirty of the pain since it began. He reports feeling sweaty and feverish without subjective temp. CT in the Ed shows acute perforated appendicitis. PMH: CVA, Catracts, CAD, HTN, DM, HLD PSH: CABG (2011), Left inguinal hernia repair (1986), Lap [place] (2016) ALL: NKDA SH: former tobacco use (quit 30 yrs ago, 1ppd x 10 yrs), denies ETOH or illicit drug use Review of Systems - Review of Systems All systems: reviewed and no additional remarkable complaints except - Constitutional Constitutional: Chills, Fever - Respiratory Respiratory: Dyspnea - Gastrointestinal Gastrointestinal: Abdominal Pain Past Patient History - Infectious Disease Hx of Infectious Diseases: None - Past Medical History & Family History Past Medical History?: Yes - Past Social History Smoking Status: Former Smoker - CARDIAC Hx Hypercholesterolemia: Yes Hx Hypertension: Yes - PULMONARY Hx Bronchitis: Yes - NEUROLOGICAL Hx Neurological Disorder: Yes HX Cerebrovascular Accident: Yes - HEENT Hx HEENT Problems: No - RENAL Hx Chronic Kidney Disease: No - ENDOCRINE/METABOLIC Hx Endocrine Disorders: Yes Hx Diabetes Mellitus Type 2: Yes - HEMATOLOGICAL/ONCOLOGICAL Hx Blood Disorders: Yes Hx Blood Transfusions: Yes Hx Blood Transfusion Reaction: No - INTEGUMENTARY Hx Dermatological Problems: No - MUSCULOSKELETAL/RHEUMATOLOGICAL Hx Falls: No - GASTROINTESTINAL Hx Gastrointestinal Disorders: Yes - GENITOURINARY/GYNECOLOGICAL Hx Genitourinary Disorders: No - PSYCHIATRIC Hx Substance Use: No - SURGICAL HISTORY Hx Cholecystectomy: Yes Hx Coronary Artery Bypass Graft: Yes (2011) - ANESTHESIA Hx Anesthesia: Yes Hx Anesthesia Reactions: No Hx Malignant Hyperthermia: No Meds Allergies/Adverse Reactions: Allergies Allergy/AdvReac Type Severity Reaction Status Date / Time No Known Allergies Allergy Verified 10/23/18 19:42 - Medications Medications: Current Medications Enoxaparin Sodium (Lovenox) 40 mg SC DAILY ERIKA Sodium Chloride (Sodium Chloride 0.9%) 1,000 mls @ 100 mls/hr IV .Q10H ONE Stop: 10/24/18 06:23 Last Admin: 10/23/18 20:54 Dose: 100 mls/hr Piperacillin Sod/Tazobactam (Sod 3.375 gm/ Sodium Chloride) 100 mls @ 200 mls/hr IVPB Q8H [facility]; Protocol Last Admin: 10/24/18 00:22 Dose: Not Given Sodium Chloride (Sodium Chloride 0.9%) 1,000 mls @ 100 mls/hr IV .Q10H [facility] Last Admin: 10/24/18 00:21 Dose: 100 mls/hr Physical Exam - Constitutional Appears: Non-toxic, No Acute Distress - Head Exam Head Exam: ATRAUMATIC, NORMOCEPHALIC - Eye Exam Eye Exam: EOMI - ENT Exam ENT Exam: Mucous Membranes Moist - Respiratory Exam Respiratory Exam: NORMAL BREATHING PATTERN - Cardiovascular Exam Cardiovascular Exam: +S1, +S2 - GI/Abdominal Exam GI & Abdominal Exam: Distended, Rebound, Soft, Tenderness. absent: Firm, Guarding, Rigid - Psychiatric Exam Psychiatric exam: Normal Affect, Normal Mood - Skin Skin Exam: Diaphoretic, Warm Results - Vital Signs Recent Vital Signs: Last Vital Signs Temp 97.8 F 10/24/18 03:30 Pulse 83 10/24/18 03:45 Resp 20 10/24/18 03:30 BP 103/64 10/24/18 03:30 Pulse Ox 95 10/24/18 03:30 - Labs Result Diagrams: 10/23/18 20:50 10/23/18 20:50 Labs: Laboratory Results - last 24 hr 10/23/18 10/23/18 10/23/18 19:42 20:40 20:50 WBC 20.2 H D RBC 4.68 Hgb 13.7 Hct 42.4 MCV 90.5 D MCH 29.2 MCHC 32.3 L RDW 13.6 Plt Count 167 MPV 8.5 Neut % (Auto) 85.5 H Lymph % (Auto) 4.0 L [place] % (Auto) 9.8 Eos % (Auto) 0.0 Baso % (Auto) 0.7 Neut # (Auto) 17.2 H Lymph # (Auto) 0.8 L [place] # (Auto) 2.0 H Eos # (Auto) 0.0 Baso # (Auto) 0.1 Neutrophils % (Manual) 89 H Band Neutrophils % 1 Lymphocytes % (Manual) 3 L Monocytes % (Manual) 7 Platelet Estimate Normal PT INR APTT pO2 51 VBG pH 7.33 VBG pCO2 52 VBG HCO3 25.0 VBG Total CO2 29.0 H VBG O2 Sat (Calc) 87.5 H VBG Base Excess 0.6 VBG Potassium 4.5 Sodium 135.0 Chloride 99.0 Glucose 201 H Lactate 1.9 Potassium Carbon Dioxide Anion Gap BUN Creatinine Est GFR ( Amer) Est GFR (Non-Af Amer) POC Glucose (mg/dL) 153 H Random Glucose Lactic Acid Calcium Total Bilirubin AST ALT Alkaline Phosphatase NT-Pro-B Natriuret Pep Total Protein Albumin Globulin Albumin/Globulin Ratio Lipase Venous Blood Potassium 4.5 Urine Color Urine Clarity Urine pH Ur Specific [place] Urine Protein Urine Glucose (UA) Urine Ketones Urine Blood Urine Nitrate Urine Bilirubin Urine Urobilinogen Ur Leukocyte Esterase Urine WBC (Auto) Urine RBC (Auto) Ur Squamous Epith Cells Amorphous Sediment Urine Bacteria 10/23/18 10/23/18 10/23/18 20:50 20:50 21:25 WBC RBC Hgb Hct MCV MCH MCHC RDW Plt Count MPV Neut % (Auto) Lymph % (Auto) [place] % (Auto) Eos % (Auto) Baso % (Auto) Neut # (Auto) Lymph # (Auto) [place] # (Auto) Eos # (Auto) Baso # (Auto) Neutrophils % (Manual) Band Neutrophils % Lymphocytes % (Manual) Monocytes % (Manual) Platelet Estimate PT 15.9 H INR 1.5 APTT 93 H pO2 VBG pH VBG pCO2 VBG HCO3 VBG Total CO2 VBG O2 Sat (Calc) VBG Base Excess VBG Potassium Sodium 134 Chloride 95 L Glucose Lactate Potassium 4.7 Carbon Dioxide 27 Anion Gap 17 BUN 48 H Creatinine 2.8 H Est GFR ( Amer) 27 Est GFR (Non-Af Amer) 22 POC Glucose (mg/dL) Random Glucose 203 H Lactic Acid Calcium 9.1 Total Bilirubin 2.5 H AST 29 ALT 26 Alkaline Phosphatase 67 NT-Pro-B Natriuret Pep 582 Total Protein 7.4 Albumin 4.1 Globulin 3.2 Albumin/Globulin Ratio 1.3 Lipase 38 Venous Blood Potassium Urine Color Urine Clarity Urine pH Ur Specific [place] Urine Protein Urine Glucose (UA) Urine Ketones Urine Blood Urine Nitrate Urine Bilirubin Urine Urobilinogen Ur Leukocyte Esterase Urine WBC (Auto) Urine RBC (Auto) Ur Squamous Epith Cells Amorphous Sediment Urine Bacteria 10/23/18 10/23/18 10/24/18 21:55 22:51 02:54 WBC RBC Hgb Hct MCV MCH MCHC RDW Plt Count MPV Neut % (Auto) Lymph % (Auto) [place] % (Auto) Eos % (Auto) Baso % (Auto) Neut # (Auto) Lymph # (Auto) [place] # (Auto) Eos # (Auto) Baso # (Auto) Neutrophils % (Manual) Band Neutrophils % Lymphocytes % (Manual) Monocytes % (Manual) Platelet Estimate PT INR APTT pO2 VBG pH VBG pCO2 VBG HCO3 VBG Total CO2 VBG O2 Sat (Calc) VBG Base Excess VBG Potassium Sodium Chloride Glucose Lactate Potassium Carbon Dioxide Anion Gap BUN Creatinine Est GFR ( Amer) Est GFR (Non-Af Amer) POC Glucose (mg/dL) 172 H Random Glucose Lactic Acid 0.9 Calcium Total Bilirubin AST ALT Alkaline Phosphatase NT-Pro-B Natriuret Pep Total Protein Albumin Globulin Albumin/Globulin Ratio Lipase Venous Blood Potassium Urine Color Marie Urine Clarity Hazy Urine pH 5.0 Ur Specific [place] 1.019 Urine Protein 3+ H Urine Glucose (UA) Normal Urine Ketones Negative Urine Blood 1+ H Urine Nitrate Negative Urine Bilirubin Negative Urine Urobilinogen 4.0 Ur Leukocyte Esterase Neg Urine WBC (Auto) 2 Urine RBC (Auto) 3 Ur Squamous Epith Cells 2 Amorphous Sediment Rare H Urine Bacteria Rare Assessment & Plan - Assessment and Plan (Free Text) Assessment: 78M with ruptured appendicitis NPO IV ABX, consider Merrem/imepenem IVF Monitor CBC for response to ABX D/W Dr. Jayme Willis PGY3 [phone]
[2018-10-24] MEDS ORDERED: Enoxaparin 30 mg Syringe SC SCH (10:00)
--- NOTE | 2018-10-24 10:13 | RAD ---
Chest x-ray single frontal view History: Shortness of breath. Comparison: 08/22/2017 Findings: Status post median sternotomy and CABG. Cardiomegaly. Prominent superior mediastinum. Mild venous congestion. Right hilar prominence. Patchy increased markings at the left lung base. Surgical clip projects over the left lung apex. Degenerative changes in the spine and shoulders. Impression: Status post median sternotomy and CABG. Cardiomegaly. Prominent superior mediastinum. Mild venous congestion. Right hilar prominence. Patchy increased markings at the left lung base. Surgical clip projects over the left lung apex.
--- NOTE | 2018-10-24 10:50 | CARD ---
APPROVED REPORT Date of service: 10/23/2018 EKG Measurement Heart [id number] <Conclusion> Sinus tachycardia Inferior infarct, age undetermined Abnormal ECG
--- NOTE | 2018-10-24 12:53 | CT ---
PROCEDURE: CT Abdomen and Pelvis without Oral or IV contrast. HISTORY: abd pain COMPARISON: CT abdomen and pelvis without IV contrast performed 07/11/17 TECHNIQUE: Contiguous axial images of the abdomen and pelvis. No oral or IV contrast administered. Coronal and Sagittal reformats generated and reviewed. Radiation dose: Total exam DLP = 1295.45 mGy-cm. This CT exam was performed using one or more of the following dose reduction techniques: Automated exposure control, adjustment of the mA and/or kV according to patient size, and/or use of iterative reconstruction technique. FINDINGS: There is limited evaluation of the solid organs without the administration of IV contrast. LOWER THORAX: Mild bibasilar atelectasis. No visible pleural effusion or pneumothorax. Small hiatal hernia/distal esophageal wall thickening. LIVER: Hepatomegaly. GALLBLADDER AND BILE DUCTS: Cholecystectomy. PANCREAS: Unremarkable. SPLEEN: Unremarkable. ADRENALS: Mild bilateral adrenal gland hypertrophy. KIDNEYS AND URETERS: No hydronephrosis or obstructing renal calculus. Curvilinear calcification re-identified involving right lower pole renal cortical cyst. 9 mm left upper pole exophytic hypodensity, statistically likely cyst. 4.9 x 3.3 cm ovoid left retroperitoneal mass measures approximately 13 Hounsfield units. BLADDER: Thick-walled under distended urinary bladder. REPRODUCTIVE: Enlarged prostate gland measures approximately 5.8 x 6.5 cm and contains calcifications. APPENDIX: Dilated appendix measuring approximately 19 mm in diameter with evidence of appendicolith. Severe associated inflammatory stranding. Suspect adjacent phlegmon which may be due to rupture. BOWEL: The stomach is nondistended. Lack of oral contrast limits evaluation for bowel pathology. The bowel loops appear within normal limits of caliber without evidence of intestinal obstruction. PERITONEUM: No significant free fluid. No definite free air. LYMPH NODES: No bulky lymphadenopathy identified. VASCULATURE: Atherosclerotic calcifications of the aorta. No aortic aneurysm. BONES: Degenerative changes. OTHER FINDINGS: Small fat containing left inguinal hernia. IMPRESSION: Findings as above consistent with acute appendicitis. Appearance concerning for possible rupture. Correlate clinically. 4.9 x 3.3 cm ovoid left retroperitoneal mass measures approximately 13 Hounsfield units, similar prior study. Recommend follow-up cross-sectional imaging without and with IV contrast for further characterization if indicated. Severely enlarged prostate gland containing calcifications. Recommend correlation with PSA. Urinary bladder wall thickening. Cystitis is not excluded. Recommend correlation with urinalysis. Curvilinear calcification re-identified involving right lower pole renal cortical cyst. 9 mm left upper pole exophytic hypodensity, statistically likely cyst. Additional incidental findings as above. Preliminary impression was provided by [facility].
--- NOTE | 2018-10-24 13:49 | CP.PCM.HP ---
History of Present Illness - History of Present Illness History of Present Illness: 78 year old male presents to the ED c/o right flank pain, hematuria, fever, chills, SOB. Patient states his abdominal pain and hematuria has been worsening since this morning. Patient is speaking in 3-4 sentences. Patient denies nausea, vomit, diarrhea, rash, weakness, numbness. CT abdomen shows appendicitis Present on Admission - Present on Admission Any Indicators Present on Admission: No History of DVT/PE: No History of Uncontrolled Diabetes: No Urinary Catheter: No Decubitus Ulcer Present: No Review of Systems - Review of Systems All systems: reviewed and no additional remarkable complaints except (As mentioned in HPI) Past Patient History - Infectious Disease Hx of Infectious Diseases: None - Past Medical History & Family History Past Medical History?: Yes - Past Social History Smoking Status: Former Smoker - CARDIAC Hx Hypercholesterolemia: Yes Hx Hypertension: Yes - PULMONARY Hx Bronchitis: Yes - NEUROLOGICAL Hx Neurological Disorder: Yes HX Cerebrovascular Accident: Yes - HEENT Hx HEENT Problems: No - RENAL Hx Chronic Kidney Disease: No - ENDOCRINE/METABOLIC Hx Endocrine Disorders: Yes Hx Diabetes Mellitus Type 2: Yes - HEMATOLOGICAL/ONCOLOGICAL Hx Blood Disorders: Yes Hx Blood Transfusions: Yes Hx Blood Transfusion Reaction: No - INTEGUMENTARY Hx Dermatological Problems: No - MUSCULOSKELETAL/RHEUMATOLOGICAL Hx Falls: No - GASTROINTESTINAL Hx Gastrointestinal Disorders: Yes - GENITOURINARY/GYNECOLOGICAL Hx Genitourinary Disorders: No - PSYCHIATRIC Hx Substance Use: No - SURGICAL HISTORY Hx Cholecystectomy: Yes Hx Coronary Artery Bypass Graft: Yes (2011) - ANESTHESIA Hx Anesthesia: Yes Hx Anesthesia Reactions: No Hx Malignant Hyperthermia: No Meds Allergies/Adverse Reactions: Allergies Allergy/AdvReac Type Severity Reaction Status Date / Time No Known Allergies Allergy Verified 10/23/18 19:42 Physical Exam - Head Exam Head Exam: NORMAL INSPECTION - Eye Exam Eye Exam: Normal appearance - ENT Exam ENT Exam: Mucous Membranes Moist - Respiratory Exam Respiratory Exam: Decreased Breath Sounds - Cardiovascular Exam Cardiovascular Exam: REGULAR RHYTHM, +S1, +S2 - GI/Abdominal Exam GI & Abdominal Exam: Diminished Bowel Sounds, Guarding, Tenderness - Extremities Exam Extremities exam: Positive for: normal inspection Results - Vital Signs Recent Vital Signs: Last Vital Signs Temp 97.9 F 10/24/18 07:00 Pulse 83 10/24/18 07:13 Resp 18 10/24/18 07:00 BP 105/66 10/24/18 07:00 Pulse Ox 96 10/24/18 07:00 - Labs Result Diagrams: 10/25/18 08:51 10/23/18 20:50 Labs: Laboratory Results - last 24 hr 10/23/18 10/23/18 10/23/18 19:42 20:40 20:50 WBC 20.2 H D RBC 4.68 Hgb 13.7 Hct 42.4 MCV 90.5 D MCH 29.2 MCHC 32.3 L RDW 13.6 Plt Count 167 MPV 8.5 Neut % (Auto) 85.5 H Lymph % (Auto) 4.0 L [place] % (Auto) 9.8 Eos % (Auto) 0.0 Baso % (Auto) 0.7 Neut # (Auto) 17.2 H Lymph # (Auto) 0.8 L [place] # (Auto) 2.0 H Eos # (Auto) 0.0 Baso # (Auto) 0.1 Neutrophils % (Manual) 89 H Band Neutrophils % 1 Lymphocytes % (Manual) 3 L Monocytes % (Manual) 7 Platelet Estimate Normal PT INR APTT pO2 51 VBG pH 7.33 VBG pCO2 52 VBG HCO3 25.0 VBG Total CO2 29.0 H VBG O2 Sat (Calc) 87.5 H VBG Base Excess 0.6 VBG Potassium 4.5 Sodium 135.0 Chloride 99.0 Glucose 201 H Lactate 1.9 Potassium Carbon Dioxide Anion Gap BUN Creatinine Est GFR ( Amer) Est GFR (Non-Af Amer) POC Glucose (mg/dL) 153 H Random Glucose Lactic Acid Calcium Total Bilirubin AST ALT Alkaline Phosphatase NT-Pro-B Natriuret Pep Total Protein Albumin Globulin Albumin/Globulin Ratio Lipase Venous Blood Potassium 4.5 Urine Color Urine Clarity Urine pH Ur Specific [place] Urine Protein Urine Glucose (UA) Urine Ketones Urine Blood Urine Nitrate Urine Bilirubin Urine Urobilinogen Ur Leukocyte Esterase Urine WBC (Auto) Urine RBC (Auto) Ur Squamous Epith Cells Amorphous Sediment Urine Bacteria 10/23/18 10/23/18 10/23/18 20:50 20:50 21:25 WBC RBC Hgb Hct MCV MCH MCHC RDW Plt Count MPV Neut % (Auto) Lymph % (Auto) [place] % (Auto) Eos % (Auto) Baso % (Auto) Neut # (Auto) Lymph # (Auto) [place] # (Auto) Eos # (Auto) Baso # (Auto) Neutrophils % (Manual) Band Neutrophils % Lymphocytes % (Manual) Monocytes % (Manual) Platelet Estimate PT 15.9 H INR 1.5 APTT 93 H pO2 VBG pH VBG pCO2 VBG HCO3 VBG Total CO2 VBG O2 Sat (Calc) VBG Base Excess VBG Potassium Sodium 134 Chloride 95 L Glucose Lactate Potassium 4.7 Carbon Dioxide 27 Anion Gap 17 BUN 48 H Creatinine 2.8 H Est GFR ( Amer) 27 Est GFR (Non-Af Amer) 22 POC Glucose (mg/dL) Random Glucose 203 H Lactic Acid Calcium 9.1 Total Bilirubin 2.5 H AST 29 ALT 26 Alkaline Phosphatase 67 NT-Pro-B Natriuret Pep 582 Total Protein 7.4 Albumin 4.1 Globulin 3.2 Albumin/Globulin Ratio 1.3 Lipase 38 Venous Blood Potassium Urine Color Urine Clarity Urine pH Ur Specific [place] Urine Protein Urine Glucose (UA) Urine Ketones Urine Blood Urine Nitrate Urine Bilirubin Urine Urobilinogen Ur Leukocyte Esterase Urine WBC (Auto) Urine RBC (Auto) Ur Squamous Epith Cells Amorphous Sediment Urine Bacteria 10/23/18 10/23/18 10/24/18 21:55 22:51 02:54 WBC RBC Hgb Hct MCV MCH MCHC RDW Plt Count MPV Neut % (Auto) Lymph % (Auto) [place] % (Auto) Eos % (Auto) Baso % (Auto) Neut # (Auto) Lymph # (Auto) [place] # (Auto) Eos # (Auto) Baso # (Auto) Neutrophils % (Manual) Band Neutrophils % Lymphocytes % (Manual) Monocytes % (Manual) Platelet Estimate PT INR APTT pO2 VBG pH VBG pCO2 VBG HCO3 VBG Total CO2 VBG O2 Sat (Calc) VBG Base Excess VBG Potassium Sodium Chloride Glucose Lactate Potassium Carbon Dioxide Anion Gap BUN Creatinine Est GFR ( Amer) Est GFR (Non-Af Amer) POC Glucose (mg/dL) 172 H Random Glucose Lactic Acid 0.9 Calcium Total Bilirubin AST ALT Alkaline Phosphatase NT-Pro-B Natriuret Pep Total Protein Albumin Globulin Albumin/Globulin Ratio Lipase Venous Blood Potassium Urine Color [place] Urine Clarity Hazy Urine pH 5.0 Ur Specific [place] 1.019 Urine Protein 3+ H Urine Glucose (UA) Normal Urine Ketones Negative Urine Blood 1+ H Urine Nitrate Negative Urine Bilirubin Negative Urine Urobilinogen 4.0 Ur Leukocyte Esterase Neg Urine WBC (Auto) 2 Urine RBC (Auto) 3 Ur Squamous Epith Cells 2 Amorphous Sediment Rare H Urine Bacteria Rare 10/24/18 10/24/18 06:33 10:51 WBC RBC Hgb Hct MCV MCH MCHC RDW Plt Count MPV Neut % (Auto) Lymph % (Auto) [place] % (Auto) Eos % (Auto) Baso % (Auto) Neut # (Auto) Lymph # (Auto) [place] # (Auto) Eos # (Auto) Baso # (Auto) Neutrophils % (Manual) Band Neutrophils % Lymphocytes % (Manual) Monocytes % (Manual) Platelet Estimate PT INR APTT pO2 VBG pH VBG pCO2 VBG HCO3 VBG Total CO2 VBG O2 Sat (Calc) VBG Base Excess VBG Potassium Sodium Chloride Glucose Lactate Potassium Carbon Dioxide Anion Gap BUN Creatinine Est GFR ( Amer) Est GFR (Non-Af Amer) POC Glucose (mg/dL) 165 H 166 H Random Glucose Lactic Acid Calcium Total Bilirubin AST ALT Alkaline Phosphatase NT-Pro-B Natriuret Pep Total Protein Albumin Globulin Albumin/Globulin Ratio Lipase Venous Blood Potassium Urine Color Urine Clarity Urine pH Ur Specific [place] Urine Protein Urine Glucose (UA) Urine Ketones Urine Blood Urine Nitrate Urine Bilirubin Urine Urobilinogen Ur Leukocyte Esterase Urine WBC (Auto) Urine RBC (Auto) Ur Squamous Epith Cells Amorphous Sediment Urine Bacteria Assessment & Plan (1) Abdominal pain Status: Acute (2) Acute appendicitis with rupture Status: Acute (3) CVA (cerebral vascular accident) Status: Acute (4) Diabetes mellitus Status: Chronic - Assessment and Plan (Free Text) Plan: IV antibiotics ID consult Surgery consult N.p.o. Accu-Chek Insulin sliding scale insulin blood pressure control DVT/GI prophylaxis
[2018-10-24] MEDS: Meropenem 500 MG in Sodium Chloride 0.9% 100 ML IVPB SCH ×2 (14:44→21:32)
--- NOTE | 2018-10-24 18:06 | CP.PCM.CON ---
History of Present Illness - History of Present Illness History of Present Illness: 78M presents to the ER due to abdominal pain. Pain started 2 days ago . Positive nausea and fever without vomiting Also reported hematuria on admission to ER CT in the Ed shows acute perforated appendicitis. ID consulted for this PMH: CVA, Catracts, CAD, HTN, DM, HLD PSH: CABG (2011), Left inguinal hernia repair (1986), Lap [place] (2016) ALL: NKDA SH: former tobacco use (quit 30 yrs ago, 1ppd x 10 yrs), denies ETOH or illicit drug use Review of Systems - Review of Systems All systems: reviewed and no additional remarkable complaints except - Constitutional Constitutional: Chills, Fever, Malaise - EENT Eyes: absent: As Per HPI, Blind Spots, Blurred Vision, Change in Vision, Decreased Night Vision, Diplopia, Discharge, Dry Eye, Exophthalmos, Floaters, Irritation, Itchy Eyes, Loss of Peripheral Vision, Pain, Photophobia, Requires Corrective Lenses, Sees Flashes, Spots in Vision, Tunnel Vision, Other Visual Disturbances, Loss of Vision, Other Ears: absent: As Per HPI, Decreased Hearing, Ear Discharge, Ear Pain, Tinnitus, Abnormal Hearing, Disequilibrium, Dizziness, Other Nose/Mouth/Throat: absent: As Per HPI, Epistaxis, Nasal Congestion, Nasal Discharge, Nasal Obstruction, Nasal Trauma, Nose Pain, Post Nasal Drip, Sinus Pain, Sinus Pressure, Bleeding Gums, Change in Voice, Dental Pain, Dry Mouth, Dysphagia, Halitosis, Hoarsness, Lip Swelling, Mouth Lesions, Mouth Pain, Odynophagia, Sore Throat, Throat Swelling, Tongue Swelling, Facial Pain, Neck Pain, Neck Mass, Other - Cardiovascular Cardiovascular: absent: As Per HPI, Acrocyanosis, Chest Pain, Chest Pain at Rest, Chest Pain with Activity, Claudication, Diaphoresis, Dyspnea, Dyspnea on Exertion, Edema, Irregular Heart Rhythm, Pain Radiating to Arm/Neck/Jaw, Leg Edema, Leg Ulcers, Lightheadedness, Orthopnea, Palpitations, Paroxysmal Nocturnal Dyspnea, Pedal Edema, Radiating Pain, Rapid Heart Rate, Slow Heart Rat e, Syncope, Other - Respiratory Respiratory: absent: As Per HPI, Cough, Dyspnea, Hemoptysis, Dyspnea on Exertion, Wheezing, Snoring, Stridor, Pain on Inspiration, Chest Congestion, Excessive Mucous Production, Change in Mucous Color, Pain with Coughing, Other - Gastrointestinal Gastrointestinal: As Per HPI - Genitourinary Genitourinary: absent: As Per HPI, Change in Urinary Stream, Difficulty Urinating, Dysuria, Flank Pain, Hematuria, Pyuria, Nocturia, Urinary Incontinence, Urinary Frequency, Urinary Hesitance, Urinary Urgency, Voiding Freq/Small Amts, Freq UTI, Hx Renal/Bladder Calculi, Hx /Renal Surgery, Bladder Distension, Other - Musculoskeletal Musculoskeletal: absent: As Per HPI, Abnormal Gait, Arthralgias, Atrophy, Back Pain, Deformity, Joint Swelling, Limited Range of Motion, Loss of Height, Muscle Cramps, Muscle Weakness, Myalgias, Neck Pain, Numbness, Radiating Pain into Limb, Stiffness, Tingling, Other - Integumentary Integumentary: absent: As Per HPI, Acne, Alopecia, Bleeding Lesions, Change in Hair, Change in Nails, Change in Pigmentation, Changing Lesions, Dry Skin, Erythema, Furuncle, Hirsutism, Lesions, New Lesions, Non-Healing Lesions, Photosensitivity, Pruritus, Rash, Skin Pain, Skin Ulcer, Sores, Striae, Swelling, Unusual Bruising, Wounds, Jaundice, Other - Neurological Neurological: absent: As Per HPI, Abnormal Gait, Abnormal Hearing, Abnormal Movements, Abnormal Speech, Behavioral Changes, Burning Sensations, Confusion, Convulsions, Disequilibrium, Dizziness, Numbness, Focal Weakness, Frequent Falls, Headaches, Lack of Coordination, Loss of Vision, Memory Loss, Paresthesias, Radicular Pain, Restless Legs, Sensory Deficit, Syncope, Tingling, Tremor, Vertigo, Weakness, Other Visual Disturbances, Other - Psychiatric Psychiatric: absent: As Per HPI, Abnormal Sleep Pattern, Anhedonia, Anxiety, Auditory Hallucinations, Behavioral Changes, Change in Appetite, Change in Libido, Confusion, Depression, Difficulty Concentrating, Hallucinations, Homicidal Ideation, Hopelessness, Irritability, Memory Loss, Mood Swings, Panic Attacks, Paranoia, Suicidal Ideation, Visual Hallucinations, Tactile Hallucinations, Other - Endocrine Endocrine: absent: As Per HPI, Change in Body Appearance, Change in Libido, Cold Intolorance, Deepening of Voice, Excessive Sweating, Fatigue, Flushing, Heat Intolorance, Increase in Ring/Shoe/Hat Size, Palpitations, Polydipsia, Polyphagia, Polyuria, Other Past Patient History - Infectious Disease Hx of Infectious Diseases: None - Past Medical History & Family History Past Medical History?: Yes - Past Social History Smoking Status: Former Smoker - CARDIAC Hx Hypercholesterolemia: Yes Hx Hypertension: Yes - PULMONARY Hx Bronchitis: Yes - NEUROLOGICAL Hx Neurological Disorder: Yes HX Cerebrovascular Accident: Yes - HEENT Hx HEENT Problems: No - RENAL Hx Chronic Kidney Disease: No - ENDOCRINE/METABOLIC Hx Endocrine Disorders: Yes Hx Diabetes Mellitus Type 2: Yes - HEMATOLOGICAL/ONCOLOGICAL Hx Blood Disorders: Yes Hx Blood Transfusions: Yes Hx Blood Transfusion Reaction: No - INTEGUMENTARY Hx Dermatological Problems: No - MUSCULOSKELETAL/RHEUMATOLOGICAL Hx Falls: No - GASTROINTESTINAL Hx Gastrointestinal Disorders: Yes - GENITOURINARY/GYNECOLOGICAL Hx Genitourinary Disorders: No - PSYCHIATRIC Hx Substance Use: No - SURGICAL HISTORY Hx Cholecystectomy: Yes Hx Coronary Artery Bypass Graft: Yes (2011) - ANESTHESIA Hx Anesthesia: Yes Hx Anesthesia Reactions: No Hx Malignant Hyperthermia: No Meds Allergies/Adverse Reactions: Allergies Allergy/AdvReac Type Severity Reaction Status Date / Time No Known Allergies Allergy Verified 10/23/18 19:42 - Medications Medications: Current Medications Enoxaparin Sodium (Lovenox) 40 mg SC DAILY ERIKA Sodium Chloride (Sodium Chloride 0.9%) 1,000 mls @ 100 mls/hr IV .Q10H ERIKA Last Admin: 10/24/18 10:12 Dose: 100 mls/hr Meropenem 500 mg/ Sodium (Chloride) 100 mls @ 100 mls/hr IVPB Q8H ERIKA; Protocol Last Admin: 10/24/18 14:44 Dose: 100 mls/hr Physical Exam - Constitutional Appears: Non-toxic, No Acute Distress, Chronically Ill - Head Exam Head Exam: ATRAUMATIC, NORMAL INSPECTION, NORMOCEPHALIC - Eye Exam Eye Exam: PERRL. absent: Scleral icterus - ENT Exam ENT Exam: Mucous Membranes Dry, Normal External Ear Exam - Neck Exam Neck exam: Negative for: Lymphadenopathy - Respiratory Exam Respiratory Exam: Decreased Breath Sounds, Clear to Auscultation Bilateral - Cardiovascular Exam Cardiovascular Exam: REGULAR RHYTHM, +S1, +S2 - GI/Abdominal Exam GI & Abdominal Exam: Diminished Bowel Sounds, Distended, Guarding, Rebound, So ft, Tenderness. absent: Organomegaly, Pulsatile Mass, Rigid - Rectal Exam Rectal Exam: Deferred - Exam Exam: NORMAL INSPECTION - Extremities Exam Extremities exam: Negative for: pedal edema - Back Exam Back exam: absent: CVA tenderness (L), CVA tenderness (R), paraspinal tenderness - Neurological Exam Neurological exam: Alert, CN II-XII Intact, Oriented x3, Reflexes Normal - Psychiatric Exam Psychiatric exam: Depressed - Skin Skin Exam: Dry, Intact Results - Vital Signs Recent Vital Signs: Last Vital Signs Temp 99.5 F 10/24/18 15:00 Pulse 114 H 10/24/18 15:00 Resp 18 10/24/18 15:00 BP 105/56 L 10/24/18 15:00 Pulse Ox 95 10/24/18 15:00 - Labs Result Diagrams: 10/23/18 20:50 10/23/18 20:50 Labs: Laboratory Results - last 24 hr 10/23/18 10/23/18 10/23/18 19:42 20:40 20:50 WBC 20.2 H D RBC 4.68 Hgb 13.7 Hct 42.4 MCV 90.5 D MCH 29.2 MCHC 32.3 L RDW 13.6 Plt Count 167 MPV 8.5 Neut % (Auto) 85.5 H Lymph % (Auto) 4.0 L [place] % (Auto) 9.8 Eos % (Auto) 0.0 Baso % (Auto) 0.7 Neut # (Auto) 17.2 H Lymph # (Auto) 0.8 L [place] # (Auto) 2.0 H Eos # (Auto) 0.0 Baso # (Auto) 0.1 Neutrophils % (Manual) 89 H Band Neutrophils % 1 Lymphocytes % (Manual) 3 L Monocytes % (Manual) 7 Platelet Estimate Normal PT INR APTT pO2 51 VBG pH 7.33 VBG pCO2 52 VBG HCO3 25.0 VBG Total CO2 29.0 H VBG O2 Sat (Calc) 87.5 H VBG Base Excess 0.6 VBG Potassium 4.5 Sodium 135.0 Chloride 99.0 Glucose 201 H Lactate 1.9 Potassium Carbon Dioxide Anion Gap BUN Creatinine Est GFR ( Amer) Est GFR (Non-Af Amer) POC Glucose (mg/dL) 153 H Random Glucose Lactic Acid Calcium Total Bilirubin AST ALT Alkaline Phosphatase NT-Pro-B Natriuret Pep Total Protein Albumin Globulin Albumin/Globulin Ratio Lipase Venous Blood Potassium 4.5 Urine Color Urine Clarity Urine pH Ur Specific [place] Urine Protein Urine Glucose (UA) Urine Ketones Urine Blood Urine Nitrate Urine Bilirubin Urine Urobilinogen Ur Leukocyte Esterase Urine WBC (Auto) Urine RBC (Auto) Ur Squamous Epith Cells Amorphous Sediment Urine Bacteria 10/23/18 10/23/18 10/23/18 20:50 20:50 21:25 WBC RBC Hgb Hct MCV MCH MCHC RDW Plt Count MPV Neut % (Auto) Lymph % (Auto) [place] % (Auto) Eos % (Auto) Baso % (Auto) Neut # (Auto) Lymph # (Auto) [place] # (Auto) Eos # (Auto) Baso # (Auto) Neutrophils % (Manual) Band Neutrophils % Lymphocytes % (Manual) Monocytes % (Manual) Platelet Estimate PT 15.9 H INR 1.5 APTT 93 H pO2 VBG pH VBG pCO2 VBG HCO3 VBG Total CO2 VBG O2 Sat (Calc) VBG Base Excess VBG Potassium Sodium 134 Chloride 95 L Glucose Lactate Potassium 4.7 Carbon Dioxide 27 Anion Gap 17 BUN 48 H Creatinine 2.8 H Est GFR ( Amer) 27 Est GFR (Non-Af Amer) 22 POC Glucose (mg/dL) Random Glucose 203 H Lactic Acid Calcium 9.1 Total Bilirubin 2.5 H AST 29 ALT 26 Alkaline Phosphatase 67 NT-Pro-B Natriuret Pep 582 Total Protein 7.4 Albumin 4.1 Globulin 3.2 Albumin/Globulin Ratio 1.3 Lipase 38 Venous Blood Potassium Urine Color Urine Clarity Urine pH Ur Specific [place] Urine Protein Urine Glucose (UA) Urine Ketones Urine Blood Urine Nitrate Urine Bilirubin Urine Urobilinogen Ur Leukocyte Esterase Urine WBC (Auto) Urine RBC (Auto) Ur Squamous Epith Cells Amorphous Sediment Urine Bacteria 10/23/18 10/23/18 10/24/18 21:55 22:51 02:54 WBC RBC Hgb Hct MCV MCH MCHC RDW Plt Count MPV Neut % (Auto) Lymph % (Auto) [place] % (Auto) Eos % (Auto) Baso % (Auto) Neut # (Auto) Lymph # (Auto) [place] # (Auto) Eos # (Auto) Baso # (Auto) Neutrophils % (Manual) Band Neutrophils % Lymphocytes % (Manual) Monocytes % (Manual) Platelet Estimate PT INR APTT pO2 VBG pH VBG pCO2 VBG HCO3 VBG Total CO2 VBG O2 Sat (Calc) VBG Base Excess VBG Potassium Sodium Chloride Glucose Lactate Potassium Carbon Dioxide Anion Gap BUN Creatinine Est GFR ( Amer) Est GFR (Non-Af Amer) POC Glucose (mg/dL) 172 H Random Glucose Lactic Acid 0.9 Calcium Total Bilirubin AST ALT Alkaline Phosphatase NT-Pro-B Natriuret Pep Total Protein Albumin Globulin Albumin/Globulin Ratio Lipase Venous Blood Potassium Urine Color Marie Urine Clarity Hazy Urine pH 5.0 Ur Specific [place] 1.019 Urine Protein 3+ H Urine Glucose (UA) Normal Urine Ketones Negative Urine Blood 1+ H Urine Nitrate Negative Urine Bilirubin Negative Urine Urobilinogen 4.0 Ur Leukocyte Esterase Neg Urine WBC (Auto) 2 Urine RBC (Auto) 3 Ur Squamous Epith Cells 2 Amorphous Sediment Rare H Urine Bacteria Rare 10/24/18 10/24/18 10/24/18 06:33 10:51 16:49 WBC RBC Hgb Hct MCV MCH MCHC RDW Plt Count MPV Neut % (Auto) Lymph % (Auto) [place] % (Auto) Eos % (Auto) Baso % (Auto) Neut # (Auto) Lymph # (Auto) [place] # (Auto) Eos # (Auto) Baso # (Auto) Neutrophils % (Manual) Band Neutrophils % Lymphocytes % (Manual) Monocytes % (Manual) Platelet Estimate PT INR APTT pO2 VBG pH VBG pCO2 VBG HCO3 VBG Total CO2 VBG O2 Sat (Calc) VBG Base Excess VBG Potassium Sodium Chloride Glucose Lactate Potassium Carbon Dioxide Anion Gap BUN Creatinine Est GFR ( Amer) Est GFR (Non-Af Amer) POC Glucose (mg/dL) 165 H 166 H 144 H Random Glucose Lactic Acid Calcium Total Bilirubin AST ALT Alkaline Phosphatase NT-Pro-B Natriuret Pep Total Protein Albumin Globulin Albumin/Globulin Ratio Lipase Venous Blood Potassium Urine Color Urine Clarity Urine pH Ur Specific [place] Urine Protein Urine Glucose (UA) Urine Ketones Urine Blood Urine Nitrate Urine Bilirubin Urine Urobilinogen Ur Leukocyte Esterase Urine WBC (Auto) Urine RBC (Auto) Ur Squamous Epith Cells Amorphous Sediment Urine Bacteria Assessment & Plan (1) Abdominal pain Status: Acute (2) Acute appendicitis with rupture Status: Acute - Assessment and Plan (Free Text) Assessment: 78 yo male with ruptured appendix and SIRS Has multiple co-morbidities including DM HTN CAD COPD CKD with RILEY IV antibiotic in progress If no improvement may need IR / OR drainage
[2018-10-24] MEDS: metroNIDAZOLE IV 500 mg/100 ml 500 MG/100 ML BAG IVPB SCH (18:52)
[2018-10-25] MEDS: metroNIDAZOLE IV 500 mg/100 ml 500 MG/100 ML BAG IVPB SCH ×3 (02:53→18:00)
[2018-10-25] MEDS: Sodium Chloride 0.9% 1,000 ML IV SCH ×3 (04:35→17:57)
[2018-10-25] MEDS: Meropenem 500 MG in Sodium Chloride 0.9% 100 ML IVPB SCH ×3 (05:29→21:37)
[2018-10-25 09:07] LABS: BASO % 0.3 % (0.0-2.0); HEMOGLOBIN 12.2 g/dL (12.0-18.0); LYMPH # 0.5 K/uL (1.0-4.3); LYMPH % 3.3 % (20.0-40.0); MEAN CORPUSCULAR HEMOGLOBIN 30.3 pg (27.0-31.0); MEAN CORPUSCULAR HGB CONC 32.6 g/dL (33.0-37.0); MEAN PLATELET VOLUME 8.8 fL (7.2-11.7); MONO # 1.7 K/uL (0.0-0.8); MONO % 11.9 % (0.0-10.0); NEUT # 12.4 K/uL (1.8-7.0); NEUT % 84.5 % (50.0-75.0); PLATELET COUNT 173 K/uL (130-400); RBC 4.03 Mil/uL (4.40-5.90); RED CELL DISTRIBUTION WIDTH 14.2 % (11.5-14.5); WHITE BLOOD COUNT 14.7 K/uL (4.8-10.8)
[2018-10-25 09:24] LABS: MEAN CELL VOLUME 92.9 fL (80.0-94.0)
[2018-10-25] MEDS: Enoxaparin 40 mg Syringe SC SCH (09:37)
--- NOTE | 2018-10-25 10:12 | CP.PCM.PN ---
Subjective - Date & Time of Evaluation Date of Evaluation: 10/25/18 Time of Evaluation: 10:08 - Subjective Subjective: General Surgery Progress Note for Dr. Delacruz This 78M was seen and examined this Am at bedside no acute events overnight.he reports his pain is improving, he is hungry. He denies any chest pain or SOb he reports he is moving his bowels and has had diarrhea. Objective - Vital Signs/Intake and Output Vital Signs (last 24 hours): Temp Pulse Resp BP Pulse Ox 98.1 F 95 H 18 117/65 96 10/25/18 07:35 10/25/18 07:35 10/25/18 07:35 10/25/18 07:35 10/25/18 07:35 Intake and Output: 10/25/18 10/25/18 06:59 18:59 Intake Total 1600 Balance 1600 - Medications Medications: Current Medications Enoxaparin Sodium (Lovenox) 40 mg SC DAILY ERIKA Last Admin: 10/25/18 09:37 Dose: 40 mg Sodium Chloride (Sodium Chloride 0.9%) 1,000 mls @ 100 mls/hr IV .Q10H ERIKA Last Admin: 10/25/18 04:35 Dose: 100 mls/hr Meropenem 500 mg/ Sodium (Chloride) 100 mls @ 100 mls/hr IVPB Q8H ERIKA; Protocol Last Admin: 10/25/18 05:29 Dose: 100 mls/hr Metronidazole (Flagyl) 500 mg in 100 mls @ 100 mls/hr IVPB Q8H ERIKA; Protocol Last Admin: 10/25/18 10:08 Dose: 100 mls/hr Morphine Sulfate (Morphine) 2 mg IVP Q4 PRN PRN Reason: Pain, severe (8-10) Last Admin: 10/25/18 02:54 Dose: 2 mg - Labs Labs: 10/25/18 08:51 10/23/18 20:50 PT 15.9 SECONDS (9.7-12.2) H 10/23/18 20:50 INR 1.5 10/23/18 20:50 APTT 93 SECONDS (21-34) H 10/23/18 20:50 - Constitutional Appears: Non-toxic, No Acute Distress - Head Exam Head Exam: ATRAUMATIC, NORMOCEPHALIC - Eye Exam Eye Exam: EOMI - ENT Exam ENT Exam: Mucous Membranes Moist - Respiratory Exam Respiratory Exam: NORMAL BREATHING PATTERN - Cardiovascular Exam Cardiovascular Exam: +S1, +S2 - GI/Abdominal Exam GI & Abdominal Exam: Distended, Soft, Tenderness. absent: Firm, Guarding, Rigid - Neurological Exam Neurological Exam: Alert, Awake - Psychiatric Exam Psychiatric exam: Normal Affect, Normal Mood - Skin Skin Exam: Dry, Intact Assessment and Plan - Assessment and Plan (Free Text) Assessment: 78M with ruptured appendicitis WBC down to 14.7 from 10 Clear Liquid Diet IV abx Monitor abdominal exam AM labs Further recs per Dr. Jayme Willis PGY3
[2018-10-25 10:41] LABS: BANDS 1 % (0-2); LYMPHOCYTE 4 % (20-40); MONOCYTE 10 % (0-10); NEUTROPHIL 85 % (50-75); TOTAL CELLS COUNTED 100
[2018-10-25 10:43] LABS: PLATELET ESTIMATE NORMAL (NORMAL)
--- NOTE | 2018-10-25 16:41 | CP.PCM.PN ---
Subjective - Date & Time of Evaluation Date of Evaluation: 10/25/18 Time of Evaluation: 16:40 Objective - Vital Signs/Intake and Output Vital Signs (last 24 hours): Temp Pulse Resp BP Pulse Ox 99.3 F 107 H 18 128/72 93 L 10/25/18 16:00 10/25/18 16:00 10/25/18 07:35 10/25/18 16:00 10/25/18 16:00 Intake and Output: 10/25/18 10/25/18 06:59 18:59 Intake Total 1600 Balance 1600 - Medications Medications: Current Medications Enoxaparin Sodium (Lovenox) 40 mg SC DAILY ERIKA Last Admin: 10/25/18 09:37 Dose: 40 mg Sodium Chloride (Sodium Chloride 0.9%) 1,000 mls @ 100 mls/hr IV .Q10H ERIKA Last Admin: 10/25/18 15:43 Dose: Not Given Meropenem 500 mg/ Sodium (Chloride) 100 mls @ 100 mls/hr IVPB Q8H ERIKA; Protocol Last Admin: 10/25/18 15:30 Dose: 100 mls/hr Metronidazole (Flagyl) 500 mg in 100 mls @ 100 mls/hr IVPB Q8H ERIKA; Protocol Last Admin: 10/25/18 10:08 Dose: 100 mls/hr Morphine Sulfate (Morphine) 2 mg IVP Q4 PRN PRN Reason: Pain, severe (8-10) Last Admin: 10/25/18 16:03 Dose: 2 mg - Labs Labs: 10/25/18 08:51 10/23/18 20:50 PT 15.9 SECONDS (9.7-12.2) H 10/23/18 20:50 INR 1.5 10/23/18 20:50 APTT 93 SECONDS (21-34) H 10/23/18 20:50 Assessment and Plan (1) Abdominal pain Status: Acute (2) Acute appendicitis with rupture Status: Acute (3) CVA (cerebral vascular accident) Status: Acute (4) Diabetes mellitus Status: Chronic
--- NOTE | 2018-10-25 18:00 | CP.PCM.PN ---
Subjective - Date & Time of Evaluation Date of Evaluation: 10/25/18 Time of Evaluation: 08:00 - Subjective Subjective: afeb less pain Objective - Vital Signs/Intake and Output Vital Signs (last 24 hours): Temp Pulse Resp BP Pulse Ox 99.3 F 107 H 18 128/72 93 L 10/25/18 16:00 10/25/18 16:00 10/25/18 07:35 10/25/18 16:00 10/25/18 16:00 Intake and Output: 10/25/18 10/25/18 06:59 18:59 Intake Total 1600 Balance 1600 - Medications Medications: Current Medications Enoxaparin Sodium (Lovenox) 40 mg SC DAILY ERIKA Last Admin: 10/25/18 09:37 Dose: 40 mg Sodium Chloride (Sodium Chloride 0.9%) 1,000 mls @ 100 mls/hr IV .Q10H ERIKA Last Admin: 10/25/18 17:57 Dose: 100 mls/hr Meropenem 500 mg/ Sodium (Chloride) 100 mls @ 100 mls/hr IVPB Q8H ERIKA; Protocol Last Admin: 10/25/18 15:30 Dose: 100 mls/hr Metronidazole (Flagyl) 500 mg in 100 mls @ 100 mls/hr IVPB Q8H ERIKA; Protocol Last Admin: 10/25/18 10:08 Dose: 100 mls/hr Morphine Sulfate (Morphine) 2 mg IVP Q4 PRN PRN Reason: Pain, severe (8-10) Last Admin: 10/25/18 16:03 Dose: 2 mg - Labs Labs: 10/25/18 08:51 10/23/18 20:50 PT 15.9 SECONDS (9.7-12.2) H 10/23/18 20:50 INR 1.5 10/23/18 20:50 APTT 93 SECONDS (21-34) H 10/23/18 20:50 - Constitutional Appears: Non-toxic, Chronically Ill - Head Exam Head Exam: NORMOCEPHALIC - Eye Exam Eye Exam: absent: Nystagmus - ENT Exam ENT Exam: Mucous Membranes Dry - Neck Exam Neck Exam: absent: Lymphadenopathy - Respiratory Exam Respiratory Exam: Decreased Breath Sounds, Rhonchi - Cardiovascular Exam Cardiovascular Exam: REGULAR RHYTHM, +S1, +S2 - GI/Abdominal Exam GI & Abdominal Exam: Distended, Guarding, Soft, Tenderness, Hypoactive Bowel Sounds. absent: Mass, Normal Bowel Sounds, Organomegaly - Rectal Exam Rectal Exam: Deferred - Exam Exam: NORMAL INSPECTION - Extremities Exam Extremities Exam: absent: Pedal Edema - Back Exam Back Exam: absent: CVA tenderness (L), CVA tenderness (R) - Neurological Exam Neurological Exam: Alert, Awake, Oriented x3 Neuro motor strength exam: Left Upper Extremity: 5, Right Upper Extremity: 5, Left Lower Extremity: 5, Right Lower Extremity: 5 - Psychiatric Exam Psychiatric exam: Normal Mood - Skin Skin Exam: Dry Assessment and Plan (1) Abdominal pain Status: Acute (2) Acute appendicitis with rupture Status: Acute - Assessment and Plan (Free Text) Assessment: cont iv rx as ordered
[2018-10-26] MEDS: Sodium Chloride 0.9% 1,000 ML IV SCH ×6 (01:45→22:56)
[2018-10-26] MEDS: metroNIDAZOLE IV 500 mg/100 ml 500 MG/100 ML BAG IVPB SCH ×3 (03:15→19:25)
[2018-10-26] MEDS: Meropenem 500 MG in Sodium Chloride 0.9% 100 ML IVPB SCH ×2 (05:30→13:51)
--- NOTE | 2018-10-26 08:42 | CP.PCM.PN ---
Subjective - Date & Time of Evaluation Date of Evaluation: 10/26/18 Time of Evaluation: 06:45 - Subjective Subjective: General Surgery Pt seen and examined. Febrile to 100.6 this AM. Had confusion overnight, needed 1:1. Ambulating, tolerating CLD. Still reports pain in RLQ Objective - Vital Signs/Intake and Output Vital Signs (last 24 hours): Temp Pulse Resp BP Pulse Ox 101.4 F H 100 H 20 106/65 97 10/26/18 07:00 10/26/18 07:10 10/26/18 07:00 10/26/18 07:00 10/26/18 07:00 Intake and Output: 10/26/18 10/26/18 06:59 18:59 Intake Total 700 Output Total 200 Balance 500 - Medications Medications: Current Medications Enoxaparin Sodium (Lovenox) 40 mg SC DAILY ERIKA Last Admin: 10/25/18 09:37 Dose: 40 mg Sodium Chloride (Sodium Chloride 0.9%) 1,000 mls @ 100 mls/hr IV .Q10H ERIKA Last Admin: 10/26/18 03:00 Dose: 100 mls/hr Meropenem 500 mg/ Sodium (Chloride) 100 mls @ 100 mls/hr IVPB Q8H ERIKA; Protocol Last Admin: 10/26/18 05:30 Dose: 100 mls/hr Metronidazole (Flagyl) 500 mg in 100 mls @ 100 mls/hr IVPB Q8H ERIKA; Protocol Last Admin: 10/26/18 03:15 Dose: 100 mls/hr Morphine Sulfate (Morphine) 2 mg IVP Q4 PRN PRN Reason: Pain, severe (8-10) Last Admin: 10/26/18 03:13 Dose: 2 mg - Labs Labs: 10/25/18 08:51 10/23/18 20:50 PT 15.9 SECONDS (9.7-12.2) H 10/23/18 20:50 INR 1.5 10/23/18 20:50 APTT 93 SECONDS (21-34) H 10/23/18 20:50 - Constitutional Appears: Non-toxic, No Acute Distress - Head Exam Head Exam: ATRAUMATIC, NORMOCEPHALIC - Eye Exam Eye Exam: EOMI. absent: Scleral icterus - Respiratory Exam Respiratory Exam: NORMAL BREATHING PATTERN. absent: Respiratory Distress - GI/Abdominal Exam GI & Abdominal Exam: Soft, Tenderness (In RLQ and some epigastrum). absent: Distended, Firm, Guarding, Rigid, Rebound - Neurological Exam Neurological Exam: Alert, Awake - Skin Skin Exam: Dry, Warm Assessment and Plan - Assessment and Plan (Free Text) Assessment: 78M with ruptured appendicitis Plan: Clear Liquid Diet IV abx Monitor abdominal exam F/U CBC AM labs May need OR if no improvement or clinically declines, will consider CT scan to re-evaluate D/W Dr. Jayme Dykes PGY4
[2018-10-26] MEDS: Enoxaparin 40 mg Syringe SC SCH (10:08)
[2018-10-26 11:45] LABS: BASO % 0.2 % (0.0-2.0); HEMOGLOBIN 11.3 g/dL (12.0-18.0); LYMPH # 0.5 K/uL (1.0-4.3); LYMPH % 3.2 % (20.0-40.0); MEAN CELL VOLUME 93.3 fL (80.0-94.0); MEAN CORPUSCULAR HEMOGLOBIN 29.7 pg (27.0-31.0); MEAN CORPUSCULAR HGB CONC 31.8 g/dL (33.0-37.0); MEAN PLATELET VOLUME 9.3 fL (7.2-11.7); MONO # 1.6 K/uL (0.0-0.8); MONO % 11.3 % (0.0-10.0); NEUT # 11.9 K/uL (1.8-7.0); NEUT % 85.3 % (50.0-75.0); PLATELET COUNT 162 K/uL (130-400); RBC 3.82 Mil/uL (4.40-5.90); RED CELL DISTRIBUTION WIDTH 14.5 % (11.5-14.5)
[2018-10-26 12:02] LABS: LYMPHOCYTE 8 % (20-40); MONOCYTE 12 % (0-10); NEUTROPHIL 80 % (50-75); TOTAL CELLS COUNTED 100
[2018-10-26 12:03] LABS: ANISOCYTOSIS SLIGHT; PLATELET ESTIMATE NORMAL (NORMAL)
[2018-10-26 12:04] LABS: ALBUMIN 3.2 g/dL (3.5-5.0); CALCIUM 8.3 mg/dl (8.6-10.4)
[2018-10-26 12:05] LABS: POLYCHROMIC SLIGHT
--- NOTE | 2018-10-26 17:25 | CP.PCM.PN ---
Subjective - Date & Time of Evaluation Date of Evaluation: 10/26/18 Time of Evaluation: 17:25 Objective - Vital Signs/Intake and Output Vital Signs (last 24 hours): Temp Pulse Resp BP Pulse Ox 98.9 F 99 H 20 106/65 97 10/26/18 10:30 10/26/18 16:00 10/26/18 07:00 10/26/18 07:00 10/26/18 07:00 Intake and Output: 10/26/18 10/26/18 06:59 18:59 Intake Total 700 950 Output Total 200 Balance 500 950 - Medications Medications: Current Medications Acetaminophen (Tylenol 325mg Tab) 650 mg PO Q6 PRN PRN Reason: Fever >100.4 F Last Admin: 10/26/18 09:30 Dose: 650 mg Enoxaparin Sodium (Lovenox) 40 mg SC DAILY ERIKA Last Admin: 10/26/18 10:08 Dose: 40 mg Metronidazole (Flagyl) 500 mg in 100 mls @ 100 mls/hr IVPB Q8H ERIKA; Protocol Last Admin: 10/26/18 10:12 Dose: 100 mls/hr Sodium Chloride (Sodium Chloride 0.9%) 1,000 mls @ 125 mls/hr IV .Q8H ERIKA Last Admin: 10/26/18 13:00 Dose: 125 mls/hr Meropenem 500 mg/ Sodium (Chloride) 100 mls @ 100 mls/hr IVPB Q12H ERIKA; Protocol Morphine Sulfate (Morphine) 2 mg IVP Q4 PRN PRN Reason: Pain, severe (8-10) Last Admin: 10/26/18 03:13 Dose: 2 mg - Labs Labs: 10/26/18 11:34 10/26/18 11:34 PT 15.9 SECONDS (9.7-12.2) H 10/23/18 20:50 INR 1.5 10/23/18 20:50 APTT 93 SECONDS (21-34) H 10/23/18 20:50 Assessment and Plan (1) Abdominal pain Status: Acute (2) Acute appendicitis with rupture Status: Acute (3) CVA (cerebral vascular accident) Status: Acute (4) Diabetes mellitus Status: Chronic
[2018-10-26 17:49] LABS: ABG ALLEN TEST POS; ARTERIAL BLOOD GAS HCO3 23.3 mmol/L (21-28); ARTERIAL BLOOD GAS O2 SAT 93.6 % (95-98); ARTERIAL BLOOD GAS PCO2 72 mm/Hg (35-45); ARTERIAL BLOOD GAS PO2 65 mm/Hg (80-100); ARTERIAL BLOOD GAS TCO2 30.3 mmol/L (22-28)
[2018-10-26 19:56] LABS: ABG ALLEN TEST POS; ARTERIAL BLOOD GAS HCO3 24.2 mmol/L (21-28); ARTERIAL BLOOD GAS HEMOGLOBIN 11.3 g/dL (11.7-17.4); ARTERIAL BLOOD GAS O2 SAT 97.1 % (95-98); ARTERIAL BLOOD GAS PCO2 80 mm/Hg (35-45); ARTERIAL BLOOD GAS PH 7.17 (7.35-7.45); ARTERIAL BLOOD GAS PO2 91 mm/Hg (80-100); ARTERIAL BLOOD GAS TCO2 31.7 mmol/L (22-28)
[2018-10-26] MEDS ORDERED: Naloxone 0.4 mg/ml Inj (Adult) ONE (20:24)
[2018-10-26] MEDS ORDERED: Naloxone 0.4 mg/ml Inj (Adult) IVP ONE (20:29)
[2018-10-26 21:50] LABS: ABG ALLEN TEST POS; ARTERIAL BLOOD GAS HCO3 23.2 mmol/L (21-28); ARTERIAL BLOOD GAS HEMOGLOBIN 11.5 g/dL (11.7-17.4); ARTERIAL BLOOD GAS O2 SAT 97.7 % (95-98); ARTERIAL BLOOD GAS PCO2 76 mm/Hg (35-45); ARTERIAL BLOOD GAS PH 7.17 (7.35-7.45); ARTERIAL BLOOD GAS PO2 99 mm/Hg (80-100)
--- NOTE | 2018-10-26 22:31 | CP.PCM.CON ---
History of Present Illness - History of Present Illness History of Present Illness: [facility] Asked to f/u pt with resp acidosis. Pt is 78 yo male with hx HTN/DM /HLD /CAD/CABG /CVA /?CKD Adm. with abd pain. Pt found with appendicitis and was being managed with IV AB. ON ABG today pt with resp acidosis. Repeat ABG not improved and pt had receive morphine. Pt lethargic when seen was given narcan and became more alert and responsive. Not giving good hx of pain or sob. denied nausea. Pt remains on BIPAP 3rd abg sl. better. ROS- as noted All- NKDA Pncezg-kh-dbp/? etoh or drugs Meds- reviewed FH- Unknown PE T-99.8 P-103 R-28 BP123/68 Obese lethargic--> more responsive Perrl Neck- no jvd lungs- bilat bs Heart-rr ABd- distended, bs+, sl. 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) Increase IV fluid bolus and maintanance avoid narcotics maintain optimal lytes f/u labs /abg May require intubation Nephrology eval I&O's DVT prophylaxis analgesia prn cont AB Surgical f/u Past Patient History - Infectious Disease Hx of Infectious Diseases: None - Past Medical History & Family History Past Medical History?: Yes - Past Social History Smoking Status: Former Smoker - CARDIAC Hx Hypercholesterolemia: Yes Hx Hypertension: Yes - PULMONARY Hx Bronchitis: Yes - NEUROLOGICAL Hx Neurological Disorder: Yes HX Cerebrovascular Accident: Yes - HEENT Hx HEENT Problems: No - RENAL Hx Chronic Kidney Disease: No - ENDOCRINE/METABOLIC Hx Endocrine Disorders: Yes Hx Diabetes Mellitus Type 2: Yes - HEMATOLOGICAL/ONCOLOGICAL Hx Blood Disorders: Yes Hx Blood Transfusions: Yes Hx Blood Transfusion Reaction: No - INTEGUMENTARY Hx Dermatological Problems: No - MUSCULOSKELETAL/RHEUMATOLOGICAL Hx Falls: No - GASTROINTESTINAL Hx Gastrointestinal Disorders: Yes - GENITOURINARY/GYNECOLOGICAL Hx Genitourinary Disorders: No - PSYCHIATRIC Hx Substance Use: No - SURGICAL HISTORY Hx Cholecystectomy: Yes Hx Coronary Artery Bypass Graft: Yes (2011) - ANESTHESIA Hx Anesthesia: Yes Hx Anesthesia Reactions: No Hx Malignant Hyperthermia: No Meds Allergies/Adverse Reactions: Allergies Allergy/AdvReac Type Severity Reaction Status Date / Time No Known Allergies Allergy Verified 10/23/18 19:42 - Medications Medications: Current Medications Acetaminophen (Tylenol 325mg Tab) 650 mg PO Q6 PRN PRN Reason: Fever >100.4 F Last Admin: 10/26/18 09:30 Dose: 650 mg Enoxaparin Sodium (Lovenox) 40 mg SC DAILY ERIKA Last Admin: 10/26/18 10:08 Dose: 40 mg Metronidazole (Flagyl) 500 mg in 100 mls @ 100 mls/hr IVPB Q8H ERIKA; Protocol Last Admin: 10/26/18 19:25 Dose: 100 mls/hr Sodium Chloride (Sodium Chloride 0.9%) 1,000 mls @ 125 mls/hr IV .Q8H ERIKA Last Admin: 10/26/18 21:14 Dose: Not Given Meropenem 500 mg/ Sodium (Chloride) 100 mls @ 100 mls/hr IVPB Q12H ERIKA; Protocol Acetaminophen (Ofirmev) 100 mls @ 100 mls/hr IV ONCE ONE Stop: 10/26/18 21:59 Morphine Sulfate (Morphine) 2 mg IVP Q4 PRN PRN Reason: Pain, severe (8-10) Last Admin: 10/26/18 18:01 Dose: 2 mg Results - Vital Signs Recent Vital Signs: Last Vital Signs Temp 99.8 F H 10/26/18 15:32 Pulse 103 H 10/26/18 21:24 Resp 28 H 10/26/18 20:30 BP 123/68 10/26/18 20:30 Pulse Ox 96 10/26/18 20:30 - Labs Result Diagrams: 10/26/18 11:34 10/26/18 11:34 Labs: Laboratory Results - last 24 hr 10/26/18 10/26/18 10/26/18 06:40 11:28 11:34 WBC 14.0 H RBC 3.82 L Hgb 11.3 L Hct 35.6 MCV 93.3 MCH 29.7 MCHC 31.8 L RDW 14.5 Plt Count 162 MPV 9.3 Neut % (Auto) 85.3 H Lymph % (Auto) 3.2 L [place] % (Auto) 11.3 H Eos % (Auto) 0.0 Baso % (Auto) 0.2 Neut # (Auto) 11.9 H Lymph # (Auto) 0.5 L [place] # (Auto) 1.6 H Eos # (Auto) 0.0 Baso # (Auto) 0.0 Neutrophils % (Manual) 80 H Lymphocytes % (Manual) 8 L Monocytes % (Manual) 12 H Platelet Estimate Normal Polychromasia Slight Basophilic Stippling Slight Anisocytosis (manual) Slight Puncture Site pCO2 pO2 HCO3 ABG pH ABG Total CO2 ABG O2 Saturation ABG Base Excess ABG Hemoglobin ABG Carboxyhemoglobin POC ABG HHb (Measured) ABG Methemoglobin Andres Test ABG Potassium A-a O2 Difference Respiratory Index Hgb O2 Saturation Glucose Lactate Liter Flow Vent Mode FiO2 Inspiratory BiPAP Expiratory BiPAP Crit Value Called To Crit Value Called By Crit Value Read Back Blood Gas Notified Time Sodium Potassium Chloride Carbon Dioxide Anion Gap BUN Creatinine Est GFR ( Amer) Est GFR (Non-Af Amer) POC Glucose (mg/dL) 204 H 205 H Random Glucose Calcium Phosphorus Magnesium Total Bilirubin AST ALT Alkaline Phosphatase Total Protein Albumin Globulin Albumin/Globulin Ratio Arterial Blood Potassium 10/26/18 10/26/18 10/26/18 11:34 16:48 17:40 WBC RBC Hgb Hct MCV MCH MCHC RDW Plt Count MPV Neut % (Auto) Lymph % (Auto) [place] % (Auto) Eos % (Auto) Baso % (Auto) Neut # (Auto) Lymph # (Auto) [place] # (Auto) Eos # (Auto) Baso # (Auto) Neutrophils % (Manual) Lymphocytes % (Manual) Monocytes % (Manual) Platelet Estimate Polychromasia Basophilic Stippling Anisocytosis (manual) Puncture Site Rradial pCO2 72 H* pO2 65 L HCO3 23.3 ABG pH 7.20 L ABG Total CO2 30.3 H ABG O2 Saturation 93.6 L ABG Base Excess -1.7 ABG Hemoglobin ABG Carboxyhemoglobin POC ABG HHb (Measured) ABG Methemoglobin Andres Test Pos ABG Potassium 4.6 A-a O2 Difference 130.0 Respiratory Index 2.0 Hgb O2 Saturation Glucose 225 H Lactate 0.7 Liter Flow 5.0 Vent Mode FiO2 40.0 Inspiratory BiPAP Expiratory BiPAP Crit Value Called To Dr. marrero Crit Value Called By Brenda cisneros rcp Crit Value Read Back Y Blood Gas Notified Time 175 Sodium 137 141.0 Potassium 4.9 Chloride 100 110.0 H Carbon Dioxide 28 Anion Gap 15 BUN 91 H Creatinine 3.4 H Est GFR ( Amer) 21 Est GFR (Non-Af Amer) 18 POC Glucose (mg/dL) 224 H Random Glucose 228 H Calcium 8.3 L Phosphorus 5.3 H Magnesium 2.3 Total Bilirubin 0.6 AST 27 ALT 33 Alkaline Phosphatase 60 Total Protein 6.2 L Albumin 3.2 L D Globulin 3.1 Albumin/Globulin Ratio 1.0 Arterial Blood Potassium 4.6 10/26/18 10/26/18 19:50 21:40 WBC RBC Hgb Hct MCV MCH MCHC RDW Plt Count MPV Neut % (Auto) Lymph % (Auto) [place] % (Auto) Eos % (Auto) Baso % (Auto) Neut # (Auto) Lymph # (Auto) [place] # (Auto) Eos # (Auto) Baso # (Auto) Neutrophils % (Manual) Lymphocytes % (Manual) Monocytes % (Manual) Platelet Estimate Polychromasia Basophilic Stippling Anisocytosis (manual) Puncture Site Rradial Lradial pCO2 80 H* 76 H* pO2 91 99 HCO3 24.2 23.2 ABG pH 7.17 L* 7.17 L* ABG Total CO2 31.7 H 30.0 H ABG O2 Saturation 97.1 97.7 ABG Base Excess -0.9 -2.2 L ABG Hemoglobin 11.3 L 11.5 L ABG Carboxyhemoglobin 1.4 1.3 POC ABG HHb (Measured) 2.8 2.2 ABG Methemoglobin 1.3 1.3 Andres Test Pos Pos ABG Potassium A-a O2 Difference 166.0 163.0 Respiratory Index 1.8 1.6 Hgb O2 Saturation 94.6 L 95.2 Glucose Lactate Liter Flow Vent Mode Bipap Bipap FiO2 50.0 50.0 Inspiratory BiPAP 12 16 Expiratory BiPAP 6 8 Crit Value Called To Dr. gregoria kinney Crit Value Called By mazin Vasquez rcp Crit Value Read Back Y Y Blood Gas Notified Time 1954 2149 Sodium Potassium Chloride Carbon Dioxide Anion Gap BUN Creatinine Est GFR ( Amer) Est GFR (Non-Af Amer) POC Glucose (mg/dL) Random Glucose Calcium Phosphorus Magnesium Total Bilirubin AST ALT Alkaline Phosphatase Total Protein Albumin Globulin Albumin/Globulin Ratio Arterial Blood Potassium Assessment & Plan (1) Acute respiratory failure with hypercapnia Status: Acute (2) Appendicitis with perforation Status: Acute (3) RILEY (acute kidney injury) Status: Acute (4) Diabetes mellitus Status: Chronic (5) CAD (coronary artery disease) of artery bypass graft Status: Chronic
[2018-10-26] MEDS ORDERED: Sodium Chloride 0.9% 500 ML IV ONE (22:35)
[2018-10-26 23:42] LABS: ABG ALLEN TEST POS; ARTERIAL BLOOD GAS HCO3 23.5 mmol/L (21-28); ARTERIAL BLOOD GAS HEMOGLOBIN 11.3 g/dL (11.7-17.4); ARTERIAL BLOOD GAS O2 SAT 96.9 % (95-98); ARTERIAL BLOOD GAS PCO2 77 mm/Hg (35-45); ARTERIAL BLOOD GAS PH 7.17 (7.35-7.45); ARTERIAL BLOOD GAS PO2 95 mm/Hg (80-100); ARTERIAL BLOOD GAS TCO2 30.5 mmol/L (22-28)
[2018-10-27] MEDS: Acetaminophen IV 1,000 MG in Premixed IV 1 EA IV PRN ×3 (01:47→22:15)
[2018-10-27] MEDS: Meropenem 500 MG in Sodium Chloride 0.9% 100 ML IVPB SCH ×2 (01:47→14:59)
[2018-10-27] MEDS: Dexmedetomidine Hydrochloride 200 MCG in Sodium Chloride 0.9% 48 ML IV PRN ×2 (02:11→06:08)
[2018-10-27] MEDS: metroNIDAZOLE IV 500 mg/100 ml 500 MG/100 ML BAG IVPB SCH ×3 (02:11→18:26)
[2018-10-27 03:38] LABS: BASO % 0.3 % (0.0-2.0); EOS % 0.1 % (0.0-4.0); HEMOGLOBIN 10.5 g/dL (12.0-18.0); LYMPH # 0.4 K/uL (1.0-4.3); LYMPH % 3.7 % (20.0-40.0); MEAN CELL VOLUME 94.5 fL (80.0-94.0); MEAN CORPUSCULAR HEMOGLOBIN 29.7 pg (27.0-31.0); MEAN CORPUSCULAR HGB CONC 31.4 g/dL (33.0-37.0); MEAN PLATELET VOLUME 8.8 fL (7.2-11.7); MONO # 1.3 K/uL (0.0-0.8); MONO % 13.9 % (0.0-10.0); NEUT # 7.8 K/uL (1.8-7.0); PLATELET COUNT 149 K/uL (130-400); RBC 3.54 Mil/uL (4.40-5.90); RED CELL DISTRIBUTION WIDTH 14.8 % (11.5-14.5); WHITE BLOOD COUNT 9.5 K/uL (4.8-10.8)
[2018-10-27 03:44] LABS: INR 1.4; PROTHROMBIN TIME 15.2 SECONDS (9.7-12.2)
[2018-10-27 03:45] LABS: ARTERIAL BLOOD GAS HCO3 22.5 mmol/L (21-28); ARTERIAL BLOOD GAS O2 SAT 96.7 % (95-98); ARTERIAL BLOOD GAS PCO2 80 mm/Hg (35-45); ARTERIAL BLOOD GAS PH 7.15 (7.35-7.45); ARTERIAL BLOOD GAS PO2 88 mm/Hg (80-100); ARTERIAL BLOOD GAS TCO2 30.4 mmol/L (22-28)
[2018-10-27 03:53] LABS: ALB/GLOB RATIO 1.1 (1.0-2.1); ALBUMIN 2.8 g/dL (3.5-5.0)
[2018-10-27 04:02] LABS: LYMPHOCYTE 3 % (20-40); MONOCYTE 14 % (0-10); NEUTROPHIL 83 % (50-75); PLATELET ESTIMATE NORMAL (NORMAL); TOTAL CELLS COUNTED 100
[2018-10-27] MEDS: Sodium Chloride 0.9% 1,000 ML IV SCH (05:39)
--- NOTE | 2018-10-27 06:36 | PCM.PROC ---
Procedures Attestation:: I certify that I have explained the specified Operation(s) or Procedure(s), risks, benefits and reasonable alternatives to the Patient and/or other person responsible. The opportunity was given to ask questions and all questions answered - Intubation Sedative: Etomidate Laryngoscope: Celia ET Tube Size: 8.0 ET Tube Uncuffed: No ET Tube Secured at Depth: 23 ET Tube Secured Locarion: Lips ET Tube Placement Confirmation: Visualized Passing Through Cords, Breath Sounds Equal Bilaterally, No Breath Sounds Over Epigastrum, Confirmation w/Capnometry Patient Tolerated Procedure: Well, No Complications Procedure Immediate Complications: None Additional comments: Intubated for worsening resp acidosis
[2018-10-27 08:29] LABS: ARTERIAL BLOOD GAS HCO3 20.2 mmol/L (21-28); ARTERIAL BLOOD GAS O2 SAT 97.6 % (95-98); ARTERIAL BLOOD GAS PCO2 47 mm/Hg (35-45); ARTERIAL BLOOD GAS PH 7.26 (7.35-7.45); ARTERIAL BLOOD GAS PO2 113 mm/Hg (80-100); ARTERIAL BLOOD GAS TCO2 22.5 mmol/L (22-28)
[2018-10-27] MEDS ORDERED: Lactated Ringer's 1,000 ML IV SCH (08:30)
--- NOTE | 2018-10-27 08:32 | RAD ---
Date of service: 10/26/2018 HISTORY: sob COMPARISON: Comparison is made with 10/23/2018 FINDINGS: LUNGS: Bibasilar opacities likely atelectasis. Mild pulmonary vascular congestion is again noted. PLEURA: No significant pleural effusion identified, no pneumothorax apparent. CARDIOVASCULAR: No aortic atherosclerotic calcification present. Normal cardiac size. No pulmonary vascular congestion. OSSEOUS STRUCTURES: No significant abnormalities. VISUALIZED UPPER ABDOMEN: No evidence of free air. OTHER FINDINGS: Post sternotomy changes are again noted. IMPRESSION: Bibasilar atelectasis and mild pulmonary vascular congestion.
--- NOTE | 2018-10-27 09:11 | CP.PCM.PN ---
Subjective - Date & Time of Evaluation Date of Evaluation: 10/27/18 Time of Evaluation: 09:08 - Subjective Subjective: General Surgery progress Note for Dr. Delacruz This 78M was seen and examined this AM at bedside. He was intubated ovenright. He is awake and alert on precidex. He denies any abdominal pain at this time communicating though head nods. Abdominal exam appears improved. Objective - Vital Signs/Intake and Output Vital Signs (last 24 hours): Temp Pulse Resp BP Pulse Ox 100.6 F H 63 16 108/53 L 100 10/26/18 23:00 10/27/18 06:00 10/27/18 06:00 10/27/18 06:00 10/27/18 06:00 Intake and Output: 10/27/18 10/27/18 06:59 18:59 Intake Total 2781 Output Total 520 Balance 2261 - Medications Medications: Current Medications Enoxaparin Sodium (Lovenox) 40 mg SC DAILY ERIKA Last Admin: 10/26/18 10:08 Dose: 40 mg Metronidazole (Flagyl) 500 mg in 100 mls @ 100 mls/hr IVPB Q8H ERIKA; Protocol Last Admin: 10/27/18 02:11 Dose: 100 mls/hr Meropenem 500 mg/ Sodium (Chloride) 100 mls @ 100 mls/hr IVPB Q12H ERIKA; Protocol Last Admin: 10/27/18 01:47 Dose: 100 mls/hr Acetaminophen 1,000 mg/ (Miscellaneous) 100 mls @ 400 mls/hr IV Q6 PRN PRN Reason: Pain, moderate (4-7) Stop: 10/27/18 23:25 Last Admin: 10/27/18 01:47 Dose: 400 mls/hr Dexmedetomidine HCl 200 mcg/ (Sodium Chloride) 50 mls @ 5.44 mls/hr IV TITR PRN; Protocol PRN Reason: Agitation Last Admin: 10/27/18 06:08 Dose: 0.5 mcg/kg/hr, 13.61 mls/hr Lactated Ringer's (Lactated Ringer's) 1,000 mls @ 125 mls/hr IV .Q8H ERIKA Pantoprazole Sodium (Protonix Inj) 40 mg IVP DAILY ERIKA - Labs Labs: 10/27/18 03:32 10/27/18 03:32 PT 15.2 SECONDS (9.7-12.2) H 10/27/18 03:32 INR 1.4 10/27/18 03:32 APTT 66 SECONDS (21-34) H 10/27/18 03:32 - Constitutional Appears: In Acute Distress - Head Exam Head Exam: ATRAUMATIC, NORMOCEPHALIC - Eye Exam Eye Exam: EOMI - ENT Exam ENT Exam: Mucous Membranes Moist - Respiratory Exam Additional comments: Intubated and ventilated - Cardiovascular Exam Cardiovascular Exam: REGULAR RHYTHM, +S1, +S2 - GI/Abdominal Exam GI & Abdominal Exam: Soft. absent: Firm, Guarding, Rigid, Tenderness - Neurological Exam Neurological Exam: Alert, Awake - Psychiatric Exam Additional comments: Unable to asses - Skin Skin Exam: Dry, Intact Assessment and Plan - Assessment and Plan (Free Text) Assessment: 78M with ruptured appendicitis, now in respiratory and renal failure Continue ABX No surgery at this time Continue medical management Discussed with Dr. Jayme Willis PGY3
--- NOTE | 2018-10-27 09:41 | CP.PCM.PN ---
Subjective - Date & Time of Evaluation Date of Evaluation: 10/27/18 Time of Evaluation: 09:39 - Subjective Subjective: reviewed and discussed with family no immediate plan for OR VS stable,pulse 72, wbc 9k+ ct noted plan reviwewed with son Objective - Vital Signs/Intake and Output Vital Signs (last 24 hours): Temp Pulse Resp BP Pulse Ox 100.6 F H 69 16 105/49 L 98 10/26/18 23:00 10/27/18 08:00 10/27/18 08:00 10/27/18 08:00 10/27/18 08:00 Intake and Output: 10/27/18 10/27/18 06:59 18:59 Intake Total 2781 Output Total 520 Balance 2261 - Medications Medications: Current Medications Enoxaparin Sodium (Lovenox) 40 mg SC DAILY ERIKA Last Admin: 10/26/18 10:08 Dose: 40 mg Metronidazole (Flagyl) 500 mg in 100 mls @ 100 mls/hr IVPB Q8H ERIKA; Protocol Last Admin: 10/27/18 02:11 Dose: 100 mls/hr Meropenem 500 mg/ Sodium (Chloride) 100 mls @ 100 mls/hr IVPB Q12H ERIKA; Protocol Last Admin: 10/27/18 01:47 Dose: 100 mls/hr Acetaminophen 1,000 mg/ (Miscellaneous) 100 mls @ 400 mls/hr IV Q6 PRN PRN Reason: Pain, moderate (4-7) Stop: 10/27/18 23:25 Last Admin: 10/27/18 01:47 Dose: 400 mls/hr Dexmedetomidine HCl 200 mcg/ (Sodium Chloride) 50 mls @ 5.44 mls/hr IV TITR PRN; Protocol PRN Reason: Agitation Last Admin: 10/27/18 06:08 Dose: 0.5 mcg/kg/hr, 13.61 mls/hr Lactated Ringer's (Lactated Ringer's) 1,000 mls @ 125 mls/hr IV .Q8H ERIKA Pantoprazole Sodium (Protonix Inj) 40 mg IVP DAILY ERIKA - Labs Labs: 10/27/18 03:32 10/27/18 03:32 PT 15.2 SECONDS (9.7-12.2) H 10/27/18 03:32 INR 1.4 10/27/18 03:32 APTT 66 SECONDS (21-34) H 10/27/18 03:32
[2018-10-27] MEDS: Enoxaparin 40 mg Syringe SC SCH (10:39)
[2018-10-27 11:04] LABS: SQUAMOUS EPITHIAL < 1 /hpf (0-5); URINE BACTERIA RARE (<OCC); URINE BILIRUBIN NEGATIVE (NEGATIVE); URINE BLOOD 2+ (NEGATIVE); URINE CLARITY Clear (Clear); URINE COLOR Yellow (YELLOW); URINE GLUCOSE (UA) NORMAL (Normal); URINE LEUKOCYTE ESTERASE TRACE Leu/uL (Negative); URINE PROTEIN NEGATIVE (NEGATIVE); URINE UROBILINOGEN NORMAL mg/dL (0.2-1.0)
--- NOTE | 2018-10-27 12:01 | CT ---
Date of service: 10/26/2018 PROCEDURE: CT Abdomen and Pelvis without intravenous contrast HISTORY: change is clinical status with perforated appendix COMPARISON: Comparison is made with prior study dated 10/23/2018 TECHNIQUE: Axial and reformatted coronal and sagittal CT images of the abdomen and pelvis were obtained without IV or oral contrast administration.. Contrast dose: 0 Radiation dose: Total exam DLP = 1265.2 mGy-cm. This CT exam was performed using one or more of the following dose reduction techniques: Automated exposure control, adjustment of the mA and/or kV according to patient size, and/or use of iterative reconstruction technique. FINDINGS: LOWER THORAX: Cardiomegaly is again noted. There is small right and trace left pleural effusion associated with mild atelectasis at the right lung base. LIVER: Unremarkable. No gross lesion or ductal dilatation. GALLBLADDER AND BILE DUCTS: Status post cholecystectomy. PANCREAS: Unremarkable. No gross lesion or ductal dilatation. SPLEEN: Unremarkable. ADRENALS: Unremarkable. No mass. KIDNEYS AND URETERS: Mild nonspecific bilateral perinephric stranding is again noted. No hydronephrosis. No solid mass. VASCULATURE: Unremarkable. No aortic aneurysm. Foci of atherosclerotic calcification are again noted BOWEL: Vquphn-bw-wthubmqaew distended stomach contains air-fluid levels. No obstruction. No gross mural thickening. APPENDIX: Enlarged appendix contains appendicoliths and surrounding with inflammatory changes again noted consistent with acute appendicitis. There is a fluid collection with air-fluid level again noted adjacent to the appendix suspicious for contain perforation and abscess formation. PERITONEUM: Again noted is low-attenuation oval-shaped lesion to the left of the Olivia at the level of the left kidney suspicious for retroperitoneal mass or cystic formation. This lesion measures 5.6 centimeter in the largest AP diameter and 3.5 in the largest transverse diameter. Mild fat stranding adjacent to this lesion is again noted. Mesenteric stranding in the right lower abdomen is again noted. LYMPH NODES: Unremarkable. No enlarged lymph nodes. BLADDER: Ortega catheter in the bladder is noted. REPRODUCTIVE: The prostate is moderately to markedly enlarged. BONES: No acute fracture. OTHER FINDINGS: None. IMPRESSION: Findings are again suggestive of acute pancreatitis with possible perforation and adjacent abscess formation. Dilated stomach suspicious for gastro paresis. With defined low-attenuation lesion adjacent to the left kidney again noted if clinically warranted CT guided aspiration/biopsy may be obtained. Additional findings as discussed above. Preliminary report was submitted by [facility] Radiology contains concordant findings.
[2018-10-27] MEDS ORDERED: Enoxaparin 40 mg Syringe SC SCH (12:15)
[2018-10-27] MEDS ORDERED: Dextrose 50% SYRINGE Inj (50 ml) IV PRN (12:16)
[2018-10-27] MEDS ORDERED: Glucagon Recombinant 1 mg Inj IM PRN (12:16)
[2018-10-27] MEDS ORDERED: Albumin Human 5% (12.5 gm/250 ml) IV ONE (12:45)
[2018-10-27] MEDS: (Novolog) Insulin Aspart, Recombinant 100 u/ml 10 ml vial SC SCH ×2 (12:52→19:13)
--- NOTE | 2018-10-27 12:52 | RAD ---
Date of service: 10/27/2018 HISTORY: intubated COMPARISON: Comparison is made with 10/26/2018 FINDINGS: LUNGS: Status post intubation. The ET tube is seen at appropriate position. Left lower lung opacity may represent atelectasis. [id number] pulmonary vascular congestion. PLEURA: Blunting of the left costophrenic angle is noted in this study. CARDIOVASCULAR: Cardiomegaly and post sternotomy changes . No pulmonary vascular congestion. OSSEOUS STRUCTURES: No significant abnormalities. VISUALIZED UPPER ABDOMEN: The NG tube seen extending to the abdomen OTHER FINDINGS: None. IMPRESSION: Status post intubation. Appropriate position of the support devices. Suspicious for left lung base atelectasis.
[2018-10-27] MEDS: Lactated Ringer's 1,000 ML IV SCH (12:55)
--- NOTE | 2018-10-27 14:28 | CP.PCM.PN ---
Subjective - Date & Time of Evaluation Date of Evaluation: 10/27/18 Time of Evaluation: 07:00 - Subjective Subjective: intubated in ICU sedated Objective - Vital Signs/Intake and Output Vital Signs (last 24 hours): Temp Pulse Resp BP Pulse Ox 100.6 F H 69 16 120/58 L 98 10/26/18 23:00 10/27/18 08:00 10/27/18 08:00 10/27/18 12:51 10/27/18 08:00 Intake and Output: 10/27/18 10/27/18 06:59 18:59 Intake Total 2781 Output Total 520 Balance 2261 - Medications Medications: Current Medications Dextrose (Dextrose 50% Inj) 0 ml IV STAT PRN; Protocol PRN Reason: Hypoglycemia Protocol Dextrose (Glutose 15) 0 gm PO ONCE PRN; Protocol PRN Reason: Hypoglycemia Protocol Enoxaparin Sodium (Lovenox) 30 mg SC DAILY ERIKA Furosemide (Lasix) 20 mg IVP Q12H ERIKA Stop: 10/29/18 00:31 Last Admin: 10/27/18 12:51 Dose: 20 mg Glucagon (Glucagen Diagnostic Kit) 0 mg IM STAT PRN; Protocol PRN Reason: Hypoglycemia Protocol Metronidazole (Flagyl) 500 mg in 100 mls @ 100 mls/hr IVPB Q8H ERIKA; Protocol Last Admin: 10/27/18 10:39 Dose: 100 mls/hr Meropenem 500 mg/ Sodium (Chloride) 100 mls @ 100 mls/hr IVPB Q12H ERIKA; Protocol Last Admin: 10/27/18 01:47 Dose: 100 mls/hr Acetaminophen 1,000 mg/ (Miscellaneous) 100 mls @ 400 mls/hr IV Q6 PRN PRN Reason: Pain, moderate (4-7) Stop: 10/27/18 23:25 Last Admin: 10/27/18 01:47 Dose: 400 mls/hr Dexmedetomidine HCl 200 mcg/ (Sodium Chloride) 50 mls @ 5.44 mls/hr IV TITR PRN; Protocol PRN Reason: Agitation Last Admin: 10/27/18 06:08 Dose: 0.5 mcg/kg/hr, 13.61 mls/hr Dextrose (Dextrose 5% In Water 1000 Ml) 1,000 mls @ 0 mls/hr IV .Q0M PRN; Protocol PRN Reason: Hypoglycemia Protocol Lactated Ringer's (Lactated Ringer's) 1,000 mls @ 75 mls/hr IV .[id number] [facility] Last Admin: 10/27/18 12:55 Dose: 75 mls/hr Insulin Aspart (Novolog) 0 unit SC Q6H ERIKA; Protocol Last Admin: 10/27/18 12:52 Dose: 3 u Pantoprazole Sodium (Protonix Inj) 40 mg IVP DAILY [facility] Last Admin: 10/27/18 10:39 Dose: 40 mg - Labs Labs: 10/27/18 03:32 10/27/18 03:32 PT 15.2 SECONDS (9.7-12.2) H 10/27/18 03:32 INR 1.4 10/27/18 03:32 APTT 66 SECONDS (21-34) H 10/27/18 03:32 - Constitutional Appears: Toxic, Confused - Head Exam Head Exam: NORMOCEPHALIC - Eye Exam Eye Exam: absent: Scleral icterus - ENT Exam ENT Exam: Mucous Membranes Dry - Neck Exam Neck Exam: absent: Lymphadenopathy - Respiratory Exam Respiratory Exam: Decreased Breath Sounds, Rhonchi - Cardiovascular Exam Cardiovascular Exam: Tachycardia, REGULAR RHYTHM, +S1, +S2 - GI/Abdominal Exam GI & Abdominal Exam: Distended, Tenderness, Diminished Bowel Sounds - Rectal Exam Rectal Exam: Deferred - Exam Exam: NORMAL INSPECTION - Extremities Exam Extremities Exam: Pedal Edema. absent: Calf Tenderness, Tenderness - Back Exam Back Exam: absent: CVA tenderness (L), CVA tenderness (R) - Neurological Exam Neurological Exam: Altered - Psychiatric Exam Psychiatric exam: Depressed - Skin Skin Exam: Dry Assessment and Plan (1) Abdominal pain Status: Acute (2) Acute appendicitis with rupture Status: Acute - Assessment and Plan (Free Text) Assessment: ruptured appendix/ abscess sepsis/ RILEY complex PMH poor prognosis cont medical management for now IV antibiotics adjusted for worsening renal failure consider IR drainage
[2018-10-27] MEDS ORDERED: Alum-Mag Hydrox-Simethicone Susp (30 mL) PO STA (14:40)
--- NOTE | 2018-10-27 17:17 | CP.CCUPN ---
CCU Subjective - Physician Review Events Since Last Encounter (Free Text): 10/27/18 17:05 78yo M. PMHx HTN, DM type 2, CAD, HLD, HTN, CAD, CABG, CKD. was being treated medically for suspected rupture appendicitis. Patient started retaining CO2 and went into respiratory failure, requiring intubation early this morning. CCU Objective - Vital Signs / Intake & Output Vital Signs (Last 4 hours): Vital Signs Pulse BP 10/27/18 15:00 77 10/27/18 14:00 78 114/49 L Intake and Output (Last 8hrs): Intake & Output 10/27/18 10/27/18 10/27/18 06:59 14:59 22:59 Intake Total 2781 894.0 200 Output Total 520 1025 400 Balance 2261 -131.0 -200 Weight 240 lb 4.8 oz Intake: IV 50 Intake, IV Amount 2731 894.0 200 Left Forearm 2031 69.0 0 Right Forearm 700 775 150 y line to R Forearm 50 50 Output: Urine 520 1025 400 Urethral (Stewart) 520 1025 400 - Physical Exam Head: Positive for: Atraumatic, Normocephalic Pupils: Positive for: PERRL Extroacular Muscles: Positive for: EOMI Conjunctiva: Positive for: Normal Ears: Positive for: Normal Mouth: Positive for: Moist Mucous Membranes Nose (External): Positive for: Atraumatic Cardiovascular: Positive for: Regular Rate and Rhythm, Normal S1, S2 Abdomen: Positive for: Normal Bowel Sounds. Negative for: Tenderness, Distention, Peritoneal Signs Upper Extremity: Positive for: Normal Inspection Psychiatric: Positive for: Alert - Medications Active Medications: Active Medications Generic Name Dose Route Start Last Admin Trade Name Freq PRN Reason Stop Dose Admin Dextrose 0 ml 10/27/18 12:16 Dextrose 50% Inj IV STAT PRN Hypoglycemia Protocol Protocol Dextrose 0 gm 10/27/18 12:16 Glutose 15 PO ONCE PRN Hypoglycemia Protocol Protocol Enoxaparin Sodium 30 mg 10/27/18 12:15 Lovenox SC DAILY ERIKA Furosemide 20 mg 10/27/18 12:30 10/27/18 12:51 Lasix IVP 10/29/18 00:31 20 mg Q12H ERIKA Administration Glucagon 0 mg 10/27/18 12:16 Glucagen Diagnostic Kit IM STAT PRN Hypoglycemia Protocol Protocol Metronidazole 500 mg in 100 mls @ 100 mls/hr 10/24/18 19:00 10/27/18 10:39 Flagyl IVPB 100 mls/hr Q8H ERIKA Administration Protocol Meropenem 500 mg/ Sodium 100 mls @ 100 mls/hr 10/27/18 02:00 10/27/18 14:59 Chloride IVPB 100 mls/hr Q12H ERIKA Administration Protocol Acetaminophen 1,000 mg/ 100 mls @ 400 mls/hr 10/26/18 23:24 10/27/18 14:58 Miscellaneous IV 10/27/18 23:25 400 mls/hr Q6 PRN Administration Pain, moderate (4-7) Dexmedetomidine HCl 200 mcg/ 50 mls @ 5.44 mls/hr 10/27/18 01:39 10/27/18 06:08 Sodium Chloride IV 0.5 mcg/kg/hr TITR PRN 13.61 mls/hr Agitation Administration Protocol 0.2 MCG/KG/HR Dextrose 1,000 mls @ 0 mls/hr 10/27/18 12:16 Dextrose 5% In Water 1000 Ml IV .Q0M PRN Hypoglycemia Protocol Protocol Per Protocol Lactated Ringer's 1,000 mls @ 75 mls/hr 10/27/18 12:18 10/27/18 12:55 Lactated Ringer's IV 75 mls/hr .[id number] ERIKA Administration Insulin Aspart 0 unit 10/27/18 12:30 10/27/18 12:52 Novolog SC 3 u Q6H ERIKA Administration Protocol Pantoprazole Sodium 40 mg 10/27/18 10:00 10/27/18 10:39 Protonix Inj IVP 40 mg DAILY ERIKA Administration - Patient Studies Lab Studies: Microbiology Studies 10/23/18 20:50 Blood Culture - Preliminary Blood NO GROWTH AFTER 3 DAYS 10/23/18 20:00 Blood Culture - Preliminary Blood NO GROWTH AFTER 3 DAYS Lab Studies 10/27/18 10/27/18 10/27/18 Range/Units 11:35 10:50 08:26 WBC (4.8-10.8) K/uL RBC (4.40-5.90) Mil/uL Hgb (12.0-18.0) g/dL Hct (35.0-51.0) % MCV (80.0-94.0) fL MCH (27.0-31.0) pg MCHC (33.0-37.0) g/dL RDW (11.5-14.5) % Plt Count (130-400) K/uL MPV (7.2-11.7) fL Neut % (Auto) (50.0-75.0) % Lymph % (Auto) (20.0-40.0) % Garfield % (Auto) (0.0-10.0) % Eos % (Auto) (0.0-4.0) % Baso % (Auto) (0.0-2.0) % Neut # (Auto) (1.8-7.0) K/uL Lymph # (Auto) (1.0-4.3) K/uL Garfield # (Auto) (0.0-0.8) K/uL Eos # (Auto) (0.0-0.7) K/uL Baso # (Auto) (0.0-0.2) K/uL Neutrophils % (Manual) (50-75) % Lymphocytes % (Manual) (20-40) % Monocytes % (Manual) (0-10) % Platelet Estimate (NORMAL) PT (9.7-12.2) SECONDS INR APTT (21-34) SECONDS Puncture Site Lb pCO2 47 H (35-45) mm/Hg pO2 113 H (80-100) mm/Hg HCO3 20.2 L (21-28) mmol/L ABG pH 7.26 L (7.35-7.45) ABG Total CO2 22.5 (22-28) mmol/L ABG O2 Saturation 97.6 (95-98) % ABG Base Excess -6.1 L (-2.0-3.0) mmol/L ABG Hemoglobin (11.7-17.4) g/dL ABG Carboxyhemoglobin (0.5-1.5) % POC ABG HHb (Measured) (0.0-5.0) % ABG Methemoglobin (0.0-3.0) % Andres Test Na ABG Potassium 4.1 (3.6-5.2) mmol/L A-a O2 Difference 256.0 mm/Hg Respiratory Index 2.3 Hgb O2 Saturation (95.0-98.0) % Sodium 145.0 (132-148) mmol/l Chloride 115.0 H (98-107) mmol/L Glucose 189 H (75-110) mg/dl Lactate 0.8 (0.7-2.1) mmol/L Liter Flow Vent Mode Mechanical Rate 16 FiO2 60.0 % Tidal Volume 500 PEEP 5 Inspiratory BiPAP Expiratory BiPAP Crit Value Called To Crit Value Called By Crit Value Read Back Blood Gas Notified Time Potassium (3.6-5.2) mmol/L Carbon Dioxide (22-30) mmol/L Anion Gap (10-20) BUN (9-20) mg/dL Creatinine (0.8-1.5) mg/dL Est GFR ( Amer) Est GFR (Non-Af Amer) POC Glucose (mg/dL) 207 H (65-110) mg/dL Random Glucose (75-110) mg/dL Calcium (8.6-10.4) mg/dl Phosphorus (2.5-4.5) mg/dL Magnesium (1.6-2.3) mg/dL Total Bilirubin (0.2-1.3) mg/dL AST (17-59) U/L ALT (21-72) U/L Alkaline Phosphatase (38-126) U/L NT-Pro-B Natriuret Pep (0-900) pg/mL Total Protein (6.3-8.3) g/dL Albumin (3.5-5.0) g/dL Globulin (2.2-3.9) gm/dL Albumin/Globulin Ratio (1.0-2.1) Arterial Blood Potassium 4.1 (3.6-5.2) mmol/L Urine Color Yellow (YELLOW) Urine Clarity Clear (Clear) Urine pH 5.0 (5.0-8.0) Ur Specific [place] 1.014 (1.003-1.030) Urine Protein Negative (NEGATIVE) mg/dL Urine Glucose (UA) Normal (Normal) mg/dL Urine Ketones Negative (NEGATIVE) mg/dL Urine Blood 2+ H (NEGATIVE) Urine Nitrate Negative (NEGATIVE) Urine Bilirubin Negative (NEGATIVE) Urine Urobilinogen Normal (0.2-1.0) mg/dL Ur Leukocyte Esterase Trace (Negative) Isabel/uL Urine WBC (Auto) 5 (0-5) /hpf Urine RBC (Auto) 10 H (0-3) /hpf Ur Squamous Epith Cells < 1 (0-5) /hpf Urine Bacteria Rare (<OCC) Blood Type Antibody Screen 10/27/18 10/27/18 10/27/18 Range/Units 06:36 03:40 03:32 WBC (4.8-10.8) K/uL RBC (4.40-5.90) Mil/uL Hgb (12.0-18.0) g/dL Hct (35.0-51.0) % MCV (80.0-94.0) fL MCH (27.0-31.0) pg MCHC (33.0-37.0) g/dL RDW (11.5-14.5) % Plt Count (130-400) K/uL MPV (7.2-11.7) fL Neut % (Auto) (50.0-75.0) % Lymph % (Auto) (20.0-40.0) % Garfield % (Auto) (0.0-10.0) % Eos % (Auto) (0.0-4.0) % Baso % (Auto) (0.0-2.0) % Neut # (Auto) (1.8-7.0) K/uL Lymph # (Auto) (1.0-4.3) K/uL Garfield # (Auto) (0.0-0.8) K/uL Eos # (Auto) (0.0-0.7) K/uL Baso # (Auto) (0.0-0.2) K/uL Neutrophils % (Manual) (50-75) % Lymphocytes % (Manual) (20-40) % Monocytes % (Manual) (0-10) % Platelet Estimate (NORMAL) PT (9.7-12.2) SECONDS INR APTT (21-34) SECONDS Puncture Site Rb pCO2 80 H* (35-45) mm/Hg pO2 88 (80-100) mm/Hg HCO3 22.5 (21-28) mmol/L ABG pH 7.15 L* (7.35-7.45) ABG Total CO2 30.4 H (22-28) mmol/L ABG O2 Saturation 96.7 (95-98) % ABG Base Excess -3.0 L (-2.0-3.0) mmol/L ABG Hemoglobin (11.7-17.4) g/dL ABG Carboxyhemoglobin (0.5-1.5) % POC ABG HHb (Measured) (0.0-5.0) % ABG Methemoglobin (0.0-3.0) % Andres Test Na ABG Potassium 4.7 (3.6-5.2) mmol/L A-a O2 Difference 169.0 mm/Hg Respiratory Index 1.9 Hgb O2 Saturation (95.0-98.0) % Sodium 143.0 (132-148) mmol/l Chloride 112.0 H (98-107) mmol/L Glucose 215 H (75-110) mg/dl Lactate 0.6 L (0.7-2.1) mmol/L Liter Flow Vent Mode Bipap Mechanical Rate FiO2 50.0 % Tidal Volume PEEP Inspiratory BiPAP 16 Expiratory BiPAP 8 Crit Value Called To Carmelo noble/rn Crit Value Called By Gwyn pablo/rt Crit Value Read Back Y Blood Gas Notified Time 350 Potassium (3.6-5.2) mmol/L Carbon Dioxide (22-30) mmol/L Anion Gap (10-20) BUN (9-20) mg/dL Creatinine (0.8-1.5) mg/dL Est GFR ( Amer) Est GFR (Non-Af Amer) POC Glucose (mg/dL) 194 H (65-110) mg/dL Random Glucose (75-110) mg/dL Calcium (8.6-10.4) mg/dl Phosphorus (2.5-4.5) mg/dL Magnesium (1.6-2.3) mg/dL Total Bilirubin (0.2-1.3) mg/dL AST (17-59) U/L ALT (21-72) U/L Alkaline Phosphatase (38-126) U/L NT-Pro-B Natriuret Pep (0-900) pg/mL Total Protein (6.3-8.3) g/dL Albumin (3.5-5.0) g/dL Globulin (2.2-3.9) gm/dL Albumin/Globulin Ratio (1.0-2.1) Arterial Blood Potassium 4.7 (3.6-5.2) mmol/L Urine Color (YELLOW) Urine Clarity (Clear) Urine pH (5.0-8.0) Ur Specific [place] (1.003-1.030) Urine Protein (NEGATIVE) mg/dL Urine Glucose (UA) (Normal) mg/dL Urine Ketones (NEGATIVE) mg/dL Urine Blood (NEGATIVE) Urine Nitrate (NEGATIVE) Urine Bilirubin (NEGATIVE) Urine Urobilinogen (0.2-1.0) mg/dL Ur Leukocyte Esterase (Negative) Isabel/uL Urine WBC (Auto) (0-5) /hpf Urine RBC (Auto) (0-3) /hpf Ur Squamous Epith Cells (0-5) /hpf Urine Bacteria (<OCC) Blood Type O POSITIVE Antibody Screen Negative 10/27/18 10/27/18 10/27/18 Range/Units 03:32 03:32 03:32 WBC 9.5 (4.8-10.8) K/uL RBC 3.54 L (4.40-5.90) Mil/uL Hgb 10.5 L (12.0-18.0) g/dL Hct 33.4 L (35.0-51.0) % MCV 94.5 H (80.0-94.0) fL MCH 29.7 (27.0-31.0) pg MCHC 31.4 L (33.0-37.0) g/dL RDW 14.8 H (11.5-14.5) % Plt Count 149 (130-400) K/uL MPV 8.8 (7.2-11.7) fL Neut % (Auto) 82.0 H (50.0-75.0) % Lymph % (Auto) 3.7 L (20.0-40.0) % Garfield % (Auto) 13.9 H (0.0-10.0) % Eos % (Auto) 0.1 (0.0-4.0) % Baso % (Auto) 0.3 (0.0-2.0) % Neut # (Auto) 7.8 H (1.8-7.0) K/uL Lymph # (Auto) 0.4 L (1.0-4.3) K/uL Garfield # (Auto) 1.3 H (0.0-0.8) K/uL Eos # (Auto) 0.0 (0.0-0.7) K/uL Baso # (Auto) 0.0 (0.0-0.2) K/uL Neutrophils % (Manual) 83 H (50-75) % Lymphocytes % (Manual) 3 L (20-40) % Monocytes % (Manual) 14 H (0-10) % Platelet Estimate Normal (NORMAL) PT 15.2 H (9.7-12.2) SECONDS INR 1.4 APTT 66 H (21-34) SECONDS Puncture Site pCO2 (35-45) mm/Hg pO2 (80-100) mm/Hg HCO3 (21-28) mmol/L ABG pH (7.35-7.45) ABG Total CO2 (22-28) mmol/L ABG O2 Saturation (95-98) % ABG Base Excess (-2.0-3.0) mmol/L ABG Hemoglobin (11.7-17.4) g/dL ABG Carboxyhemoglobin (0.5-1.5) % POC ABG HHb (Measured) (0.0-5.0) % ABG Methemoglobin (0.0-3.0) % Andres Test ABG Potassium (3.6-5.2) mmol/L A-a O2 Difference mm/Hg Respiratory Index Hgb O2 Saturation (95.0-98.0) % Sodium 139 (132-148) mmol/l Chloride 107 (98-107) mmol/L Glucose (75-110) mg/dl Lactate (0.7-2.1) mmol/L Liter Flow Vent Mode Mechanical Rate FiO2 % Tidal Volume PEEP Inspiratory BiPAP Expiratory BiPAP Crit Value Called To Crit Value Called By Crit Value Read Back Blood Gas Notified Time Potassium 5.2 (3.6-5.2) mmol/L Carbon Dioxide 25 (22-30) mmol/L Anion Gap 13 (10-20) BUN 91 H (9-20) mg/dL Creatinine 3.2 H (0.8-1.5) mg/dL Est GFR ( Amer) 23 Est GFR (Non-Af Amer) 19 POC Glucose (mg/dL) (65-110) mg/dL Random Glucose 214 H (75-110) mg/dL Calcium 8.0 L (8.6-10.4) mg/dl Phosphorus 5.5 H (2.5-4.5) mg/dL Magnesium 2.4 H (1.6-2.3) mg/dL Total Bilirubin 0.5 (0.2-1.3) mg/dL AST 17 D (17-59) U/L ALT 31 (21-72) U/L Alkaline Phosphatase 47 (38-126) U/L NT-Pro-B Natriuret Pep 2530 H (0-900) pg/mL Total Protein 5.5 L (6.3-8.3) g/dL Albumin 2.8 L (3.5-5.0) g/dL Globulin 2.7 (2.2-3.9) gm/dL Albumin/Globulin Ratio 1.1 (1.0-2.1) Arterial Blood Potassium (3.6-5.2) mmol/L Urine Color (YELLOW) Urine Clarity (Clear) Urine pH (5.0-8.0) Ur Specific [place] (1.003-1.030) Urine Protein (NEGATIVE) mg/dL Urine Glucose (UA) (Normal) mg/dL Urine Ketones (NEGATIVE) mg/dL Urine Blood (NEGATIVE) Urine Nitrate (NEGATIVE) Urine Bilirubin (NEGATIVE) Urine Urobilinogen (0.2-1.0) mg/dL Ur Leukocyte Esterase (Negative) Isabel/uL Urine WBC (Auto) (0-5) /hpf Urine RBC (Auto) (0-3) /hpf Ur Squamous Epith Cells (0-5) /hpf Urine Bacteria (<OCC) Blood Type Antibody Screen 10/27/18 10/26/18 10/26/18 Range/Units 00:32 23:35 21:40 WBC (4.8-10.8) K/uL RBC (4.40-5.90) Mil/uL Hgb (12.0-18.0) g/dL Hct (35.0-51.0) % MCV (80.0-94.0) fL MCH (27.0-31.0) pg MCHC (33.0-37.0) g/dL RDW (11.5-14.5) % Plt Count (130-400) K/uL MPV (7.2-11.7) fL Neut % (Auto) (50.0-75.0) % Lymph % (Auto) (20.0-40.0) % Garfield % (Auto) (0.0-10.0) % Eos % (Auto) (0.0-4.0) % Baso % (Auto) (0.0-2.0) % Neut # (Auto) (1.8-7.0) K/uL Lymph # (Auto) (1.0-4.3) K/uL Garfield # (Auto) (0.0-0.8) K/uL Eos # (Auto) (0.0-0.7) K/uL Baso # (Auto) (0.0-0.2) K/uL Neutrophils % (Manual) (50-75) % Lymphocytes % (Manual) (20-40) % Monocytes % (Manual) (0-10) % Platelet Estimate (NORMAL) PT (9.7-12.2) SECONDS INR APTT (21-34) SECONDS Puncture Site Rr Lradial pCO2 77 H* 76 H* (35-45) mm/Hg pO2 95 99 (80-100) mm/Hg HCO3 23.5 23.2 (21-28) mmol/L ABG pH 7.17 L* 7.17 L* (7.35-7.45) ABG Total CO2 30.5 H 30.0 H (22-28) mmol/L ABG O2 Saturation 96.9 97.7 (95-98) % ABG Base Excess -1.8 -2.2 L (-2.0-3.0) mmol/L ABG Hemoglobin 11.3 L 11.5 L (11.7-17.4) g/dL ABG Carboxyhemoglobin 1.1 1.3 (0.5-1.5) % POC ABG HHb (Measured) 3.0 2.2 (0.0-5.0) % ABG Methemoglobin 1.0 1.3 (0.0-3.0) % Andres Test Pos Pos ABG Potassium (3.6-5.2) mmol/L A-a O2 Difference 165.0 163.0 mm/Hg Respiratory Index 1.7 1.6 Hgb O2 Saturation 95.0 95.2 (95.0-98.0) % Sodium (132-148) mmol/l Chloride (98-107) mmol/L Glucose (75-110) mg/dl Lactate (0.7-2.1) mmol/L Liter Flow Vent Mode Bipap Bipap Mechanical Rate FiO2 50.0 50.0 % Tidal Volume PEEP Inspiratory BiPAP 20 16 Expiratory BiPAP 10 8 Crit Value Called To Carmelo noble/rn Dr. kinney Crit Value Called By Gwyn pablo/rt Brenda cisneros rcp Crit Value Read Back Y Y Blood Gas Notified Time 2345 2150 Potassium (3.6-5.2) mmol/L Carbon Dioxide (22-30) mmol/L Anion Gap (10-20) BUN (9-20) mg/dL Creatinine (0.8-1.5) mg/dL Est GFR ( Amer) Est GFR (Non-Af Amer) POC Glucose (mg/dL) 208 H (65-110) mg/dL Random Glucose (75-110) mg/dL Calcium (8.6-10.4) mg/dl Phosphorus (2.5-4.5) mg/dL Magnesium (1.6-2.3) mg/dL Total Bilirubin (0.2-1.3) mg/dL AST (17-59) U/L ALT (21-72) U/L Alkaline Phosphatase (38-126) U/L NT-Pro-B Natriuret Pep (0-900) pg/mL Total Protein (6.3-8.3) g/dL Albumin (3.5-5.0) g/dL Globulin (2.2-3.9) gm/dL Albumin/Globulin Ratio (1.0-2.1) Arterial Blood Potassium (3.6-5.2) mmol/L Urine Color (YELLOW) Urine Clarity (Clear) Urine pH (5.0-8.0) Ur Specific [place] (1.003-1.030) Urine Protein (NEGATIVE) mg/dL Urine Glucose (UA) (Normal) mg/dL Urine Ketones (NEGATIVE) mg/dL Urine Blood (NEGATIVE) Urine Nitrate (NEGATIVE) Urine Bilirubin (NEGATIVE) Urine Urobilinogen (0.2-1.0) mg/dL Ur Leukocyte Esterase (Negative) Isabel/uL Urine WBC (Auto) (0-5) /hpf Urine RBC (Auto) (0-3) /hpf Ur Squamous Epith Cells (0-5) /hpf Urine Bacteria (<OCC) Blood Type Antibody Screen 10/26/18 10/26/1818 Range/Units 21:35 19:50 17:40 WBC (4.8-10.8) K/uL RBC (4.40-5.90) Mil/uL Hgb (12.0-18.0) g/dL Hct (35.0-51.0) % MCV (80.0-94.0) fL MCH (27.0-31.0) pg MCHC (33.0-37.0) g/dL RDW (11.5-14.5) % Plt Count (130-400) K/uL MPV (7.2-11.7) fL Neut % (Auto) (50.0-75.0) % Lymph % (Auto) (20.0-40.0) % [place]field % (Auto) (0.0-10.0) % Eos % (Auto) (0.0-4.0) % Baso % (Auto) (0.0-2.0) % Neut # (Auto) (1.8-7.0) K/uL Lymph # (Auto) (1.0-4.3) K/uL Garfield # (Auto) (0.0-0.8) K/uL Eos # (Auto) (0.0-0.7) K/uL Baso # (Auto) (0.0-0.2) K/uL Neutrophils % (Manual) (50-75) % Lymphocytes % (Manual) (20-40) % Monocytes % (Manual) (0-10) % Platelet Estimate (NORMAL) PT (9.7-12.2) SECONDS INR APTT (21-34) SECONDS Puncture Site Rradial Rradial pCO2 80 H* 72 H* (35-45) mm/Hg pO2 91 65 L (80-100) mm/Hg HCO3 24.2 23.3 (21-28) mmol/L ABG pH 7.17 L* 7.20 L (7.35-7.45) ABG Total CO2 31.7 H 30.3 H (22-28) mmol/L ABG O2 Saturation 97.1 93.6 L (95-98) % ABG Base Excess -0.9 -1.7 (-2.0-3.0) mmol/L ABG Hemoglobin 11.3 L (11.7-17.4) g/dL ABG Carboxyhemoglobin 1.4 (0.5-1.5) % POC ABG HHb (Measured) 2.8 (0.0-5.0) % ABG Methemoglobin 1.3 (0.0-3.0) % Andres Test Pos Pos ABG Potassium 4.6 (3.6-5.2) mmol/L A-a O2 Difference 166.0 130.0 mm/Hg Respiratory Index 1.8 2.0 Hgb O2 Saturation 94.6 L (95.0-98.0) % Sodium 141.0 (132-148) mmol/l Chloride 110.0 H (98-107) mmol/L Glucose 225 H (75-110) mg/dl Lactate 0.7 (0.7-2.1) mmol/L Liter Flow 5.0 Vent Mode Bipap Mechanical Rate FiO2 50.0 40.0 % Tidal Volume PEEP Inspiratory BiPAP 12 Expiratory BiPAP 6 Crit Value Called To Dr. gregoria marrero Crit Value Called By mazin Vasquez rcp Crit Value Read Back Y Y Blood Gas Notified Time 1954 175 Potassium (3.6-5.2) mmol/L Carbon Dioxide (22-30) mmol/L Anion Gap (10-20) BUN (9-20) mg/dL Creatinine (0.8-1.5) mg/dL Est GFR ( Amer) Est GFR (Non-Af Amer) POC Glucose (mg/dL) 211 H (65-110) mg/dL Random Glucose (75-110) mg/dL Calcium (8.6-10.4) mg/dl Phosphorus (2.5-4.5) mg/dL Magnesium (1.6-2.3) mg/dL Total Bilirubin (0.2-1.3) mg/dL AST (17-59) U/L ALT (21-72) U/L Alkaline Phosphatase (38-126) U/L NT-Pro-B Natriuret Pep (0-900) pg/mL Total Protein (6.3-8.3) g/dL Albumin (3.5-5.0) g/dL Globulin (2.2-3.9) gm/dL Albumin/Globulin Ratio (1.0-2.1) Arterial Blood Potassium 4.6 (3.6-5.2) mmol/L Urine Color (YELLOW) Urine Clarity (Clear) Urine pH (5.0-8.0) Ur Specific [place] (1.003-1.030) Urine Protein (NEGATIVE) mg/dL Urine Glucose (UA) (Normal) mg/dL Urine Ketones (NEGATIVE) mg/dL Urine Blood (NEGATIVE) Urine Nitrate (NEGATIVE) Urine Bilirubin (NEGATIVE) Urine Urobilinogen (0.2-1.0) mg/dL Ur Leukocyte Esterase (Negative) Isabel/uL Urine WBC (Auto) (0-5) /hpf Urine RBC (Auto) (0-3) /hpf Ur Squamous Epith Cells (0-5) /hpf Urine Bacteria (<OCC) Blood Type Antibody Screen 10/26/18 Range/Units 16:48 WBC (4.8-10.8) K/uL RBC (4.40-5.90) Mil/uL Hgb (12.0-18.0) g/dL Hct (35.0-51.0) % MCV (80.0-94.0) fL MCH (27.0-31.0) pg MCHC (33.0-37.0) g/dL RDW (11.5-14.5) % Plt Count (130-400) K/uL MPV (7.2-11.7) fL Neut % (Auto) (50.0-75.0) % Lymph % (Auto) (20.0-40.0) % [place]field % (Auto) (0.0-10.0) % Eos % (Auto) (0.0-4.0) % Baso % (Auto) (0.0-2.0) % Neut # (Auto) (1.8-7.0) K/uL Lymph # (Auto) (1.0-4.3) K/uL Garfield # (Auto) (0.0-0.8) K/uL Eos # (Auto) (0.0-0.7) K/uL Baso # (Auto) (0.0-0.2) K/uL Neutrophils % (Manual) (50-75) % Lymphocytes % (Manual) (20-40) % Monocytes % (Manual) (0-10) % Platelet Estimate (NORMAL) PT (9.7-12.2) SECONDS INR APTT (21-34) SECONDS Puncture Site pCO2 (35-45) mm/Hg pO2 (80-100) mm/Hg HCO3 (21-28) mmol/L ABG pH (7.35-7.45) ABG Total CO2 (22-28) mmol/L ABG O2 Saturation (95-98) % ABG Base Excess (-2.0-3.0) mmol/L ABG Hemoglobin (11.7-17.4) g/dL ABG Carboxyhemoglobin (0.5-1.5) % POC ABG HHb (Measured) (0.0-5.0) % ABG Methemoglobin (0.0-3.0) % Andres Test ABG Potassium (3.6-5.2) mmol/L A-a O2 Difference mm/Hg Respiratory Index Hgb O2 Saturation (95.0-98.0) % Sodium (132-148) mmol/l Chloride (98-107) mmol/L Glucose (75-110) mg/dl Lactate (0.7-2.1) mmol/L Liter Flow Vent Mode Mechanical Rate FiO2 % Tidal Volume PEEP Inspiratory BiPAP Expiratory BiPAP Crit Value Called To Crit Value Called By Crit Value Read Back Blood Gas Notified Time Potassium (3.6-5.2) mmol/L Carbon Dioxide (22-30) mmol/L Anion Gap (10-20) BUN (9-20) mg/dL Creatinine (0.8-1.5) mg/dL Est GFR ( Amer) Est GFR (Non-Af Amer) POC Glucose (mg/dL) 224 H (65-110) mg/dL Random Glucose (75-110) mg/dL Calcium (8.6-10.4) mg/dl Phosphorus (2.5-4.5) mg/dL Magnesium (1.6-2.3) mg/dL Total Bilirubin (0.2-1.3) mg/dL AST (17-59) U/L ALT (21-72) U/L Alkaline Phosphatase (38-126) U/L NT-Pro-B Natriuret Pep (0-900) pg/mL Total Protein (6.3-8.3) g/dL Albumin (3.5-5.0) g/dL Globulin (2.2-3.9) gm/dL Albumin/Globulin Ratio (1.0-2.1) Arterial Blood Potassium (3.6-5.2) mmol/L Urine Color (YELLOW) Urine Clarity (Clear) Urine pH (5.0-8.0) Ur Specific [place] (1.003-1.030) Urine Protein (NEGATIVE) mg/dL Urine Glucose (UA) (Normal) mg/dL Urine Ketones (NEGATIVE) mg/dL Urine Blood (NEGATIVE) Urine Nitrate (NEGATIVE) Urine Bilirubin (NEGATIVE) Urine Urobilinogen (0.2-1.0) mg/dL Ur Leukocyte Esterase (Negative) Isabel/uL Urine WBC (Auto) (0-5) /hpf Urine RBC (Auto) (0-3) /hpf Ur Squamous Epith Cells (0-5) /hpf Urine Bacteria (<OCC) Blood Type Antibody Screen Laboratory Results - last 24 hr 10/26/18 10/26/18 10/26/18 16:48 17:40 19:50 WBC RBC Hgb Hct MCV MCH MCHC RDW Plt Count MPV Neut % (Auto) Lymph % (Auto) Garfield % (Auto) Eos % (Auto) Baso % (Auto) Neut # (Auto) Lymph # (Auto) Garfield # (Auto) Eos # (Auto) Baso # (Auto) Neutrophils % (Manual) Lymphocytes % (Manual) Monocytes % (Manual) Platelet Estimate PT INR APTT Puncture Site Rradial Rradial pCO2 72 H* 80 H* pO2 65 L 91 HCO3 23.3 24.2 ABG pH 7.20 L 7.17 L* ABG Total CO2 30.3 H 31.7 H ABG O2 Saturation 93.6 L 97.1 ABG Base Excess -1.7 -0.9 ABG Hemoglobin 11.3 L ABG Carboxyhemoglobin 1.4 POC ABG HHb (Measured) 2.8 ABG Methemoglobin 1.3 Andres Test Pos Pos ABG Potassium 4.6 A-a O2 Difference 130.0 166.0 Respiratory Index 2.0 1.8 Hgb O2 Saturation 94.6 L Sodium 141.0 Chloride 110.0 H Glucose 225 H Lactate 0.7 Liter Flow 5.0 Vent Mode Bipap Mechanical Rate FiO2 40.0 50.0 Tidal Volume PEEP Inspiratory BiPAP 12 Expiratory BiPAP 6 Crit Value Called To Dr. burgess Dr. kinney Crit Value Called By mazin Vasquez rcp Crit Value Read Back Y Y Blood Gas Notified Time [id number] 1954 Potassium Carbon Dioxide Anion Gap BUN Creatinine Est GFR ( Amer) Est GFR (Non-Af Amer) POC Glucose (mg/dL) 224 H Random Glucose Calcium Phosphorus Magnesium Total Bilirubin AST ALT Alkaline Phosphatase NT-Pro-B Natriuret Pep Total Protein Albumin Globulin Albumin/Globulin Ratio Arterial Blood Potassium 4.6 Urine Color Urine Clarity Urine pH Ur Specific [place] Urine Protein Urine Glucose (UA) Urine Ketones Urine Blood Urine Nitrate Urine Bilirubin Urine Urobilinogen Ur Leukocyte Esterase Urine WBC (Auto) Urine RBC (Auto) Ur Squamous Epith Cells Urine Bacteria Blood Type Antibody Screen 10/26/18 10/26/18 10/26/18 21:35 21:40 23:35 WBC RBC Hgb Hct MCV MCH MCHC RDW Plt Count MPV Neut % (Auto) Lymph % (Auto) Garfield % (Auto) Eos % (Auto) Baso % (Auto) Neut # (Auto) Lymph # (Auto) Garfield # (Auto) Eos # (Auto) Baso # (Auto) Neutrophils % (Manual) Lymphocytes % (Manual) Monocytes % (Manual) Platelet Estimate PT INR APTT Puncture Site Lradial Rr pCO2 76 H* 77 H* pO2 99 95 HCO3 23.2 23.5 ABG pH 7.17 L* 7.17 L* ABG Total CO2 30.0 H 30.5 H ABG O2 Saturation 97.7 96.9 ABG Base Excess -2.2 L -1.8 ABG Hemoglobin 11.5 L 11.3 L ABG Carboxyhemoglobin 1.3 1.1 POC ABG HHb (Measured) 2.2 3.0 ABG Methemoglobin 1.3 1.0 Andres Test Pos Pos ABG Potassium A-a O2 Difference 163.0 165.0 Respiratory Index 1.6 1.7 Hgb O2 Saturation 95.2 95.0 Sodium Chloride Glucose Lactate Liter Flow Vent Mode Bipap Bipap Mechanical Rate FiO2 50.0 50.0 Tidal Volume PEEP Inspiratory BiPAP 16 20 Expiratory BiPAP 8 10 Crit Value Called To Dr. gregoria noble/maylin Crit Value Called By mazin Vasquez/rt Crit Value Read Back Y Y Blood Gas Notified Time 21495 Potassium Carbon Dioxide Anion Gap BUN Creatinine Est GFR ( Amer) Est GFR (Non-Af Amer) POC Glucose (mg/dL) 211 H Random Glucose Calcium Phosphorus Magnesium Total Bilirubin AST ALT Alkaline Phosphatase NT-Pro-B Natriuret Pep Total Protein Albumin Globulin Albumin/Globulin Ratio Arterial Blood Potassium Urine Color Urine Clarity Urine pH Ur Specific [place] Urine Protein Urine Glucose (UA) Urine Ketones Urine Blood Urine Nitrate Urine Bilirubin Urine Urobilinogen Ur Leukocyte Esterase Urine WBC (Auto) Urine RBC (Auto) Ur Squamous Epith Cells Urine Bacteria Blood Type Antibody Screen 10/27/18 10/27/18 10/27/18 00:32 03:32 03:32 WBC 9.5 RBC 3.54 L Hgb 10.5 L Hct 33.4 L MCV 94.5 H MCH 29.7 MCHC 31.4 L RDW 14.8 H Plt Count 149 MPV 8.8 Neut % (Auto) 82.0 H Lymph % (Auto) 3.7 L Garfield % (Auto) 13.9 H Eos % (Auto) 0.1 Baso % (Auto) 0.3 Neut # (Auto) 7.8 H Lymph # (Auto) 0.4 L Garfield # (Auto) 1.3 H Eos # (Auto) 0.0 Baso # (Auto) 0.0 Neutrophils % (Manual) 83 H Lymphocytes % (Manual) 3 L Monocytes % (Manual) 14 H Platelet Estimate Normal PT INR APTT Puncture Site pCO2 pO2 HCO3 ABG pH ABG Total CO2 ABG O2 Saturation ABG Base Excess ABG Hemoglobin ABG Carboxyhemoglobin POC ABG HHb (Measured) ABG Methemoglobin Andres Test ABG Potassium A-a O2 Difference Respiratory Index Hgb O2 Saturation Sodium 139 Chloride 107 Glucose Lactate Liter Flow Vent Mode Mechanical Rate FiO2 Tidal Volume PEEP Inspiratory BiPAP Expiratory BiPAP Crit Value Called To Crit Value Called By Crit Value Read Back Blood Gas Notified Time Potassium 5.2 Carbon Dioxide 25 Anion Gap 13 BUN 91 H Creatinine 3.2 H Est GFR ( Amer) 23 Est GFR (Non-Af Amer) 19 POC Glucose (mg/dL) 208 H Random Glucose 214 H Calcium 8.0 L Phosphorus 5.5 H Magnesium 2.4 H Total Bilirubin 0.5 AST 17 D ALT 31 Alkaline Phosphatase 47 NT-Pro-B Natriuret Pep 2530 H Total Protein 5.5 L Albumin 2.8 L Globulin 2.7 Albumin/Globulin Ratio 1.1 Arterial Blood Potassium Urine Color Urine Clarity Urine pH Ur Specific [place] Urine Protein Urine Glucose (UA) Urine Ketones Urine Blood Urine Nitrate Urine Bilirubin Urine Urobilinogen Ur Leukocyte Esterase Urine WBC (Auto) Urine RBC (Auto) Ur Squamous Epith Cells Urine Bacteria Blood Type Antibody Screen 10/27/18 10/27/18 10/27/18 03:32 03:32 03:40 WBC RBC Hgb Hct MCV MCH MCHC RDW Plt Count MPV Neut % (Auto) Lymph % (Auto) Garfield % (Auto) Eos % (Auto) Baso % (Auto) Neut # (Auto) Lymph # (Auto) Garfield # (Auto) Eos # (Auto) Baso # (Auto) Neutrophils % (Manual) Lymphocytes % (Manual) Monocytes % (Manual) Platelet Estimate PT 15.2 H INR 1.4 APTT 66 H Puncture Site Rb pCO2 80 H* pO2 88 HCO3 22.5 ABG pH 7.15 L* ABG Total CO2 30.4 H ABG O2 Saturation 96.7 ABG Base Excess -3.0 L ABG Hemoglobin ABG Carboxyhemoglobin POC ABG HHb (Measured) ABG Methemoglobin Andres Test Na ABG Potassium 4.7 A-a O2 Difference 169.0 Respiratory Index 1.9 Hgb O2 Saturation Sodium 143.0 Chloride 112.0 H Glucose 215 H Lactate 0.6 L Liter Flow Vent Mode Bipap Mechanical Rate FiO2 50.0 Tidal Volume PEEP Inspiratory BiPAP 16 Expiratory BiPAP 8 Crit Value Called To Carmelo noble/rn Crit Value Called By Gwyn pablo/rt Crit Value Read Back Y Blood Gas Notified Time 350 Potassium Carbon Dioxide Anion Gap BUN Creatinine Est GFR ( Amer) Est GFR (Non-Af Amer) POC Glucose (mg/dL) Random Glucose Calcium Phosphorus Magnesium Total Bilirubin AST ALT Alkaline Phosphatase NT-Pro-B Natriuret Pep Total Protein Albumin Globulin Albumin/Globulin Ratio Arterial Blood Potassium 4.7 Urine Color Urine Clarity Urine pH Ur Specific [place] Urine Protein Urine Glucose (UA) Urine Ketones Urine Blood Urine Nitrate Urine Bilirubin Urine Urobilinogen Ur Leukocyte Esterase Urine WBC (Auto) Urine RBC (Auto) Ur Squamous Epith Cells Urine Bacteria Blood Type O POSITIVE Antibody Screen Negative 10/27/18 10/27/18 10/27/18 06:36 08:26 10:50 WBC RBC Hgb Hct MCV MCH MCHC RDW Plt Count MPV Neut % (Auto) Lymph % (Auto) Garfield % (Auto) Eos % (Auto) Baso % (Auto) Neut # (Auto) Lymph # (Auto) Garfield # (Auto) Eos # (Auto) Baso # (Auto) Neutrophils % (Manual) Lymphocytes % (Manual) Monocytes % (Manual) Platelet Estimate PT INR APTT Puncture Site Lb pCO2 47 H pO2 113 H HCO3 20.2 L ABG pH 7.26 L ABG Total CO2 22.5 ABG O2 Saturation 97.6 ABG Base Excess -6.1 L ABG Hemoglobin ABG Carboxyhemoglobin POC ABG HHb (Measured) ABG Methemoglobin Andres Test Na ABG Potassium 4.1 A-a O2 Difference 256.0 Respiratory Index 2.3 Hgb O2 Saturation Sodium 145.0 Chloride 115.0 H Glucose 189 H Lactate 0.8 Liter Flow Vent Mode Mechanical Rate 16 FiO2 60.0 Tidal Volume 500 PEEP 5 Inspiratory BiPAP Expiratory BiPAP Crit Value Called To Crit Value Called By Crit Value Read Back Blood Gas Notified Time Potassium Carbon Dioxide Anion Gap BUN Creatinine Est GFR ( Amer) Est GFR (Non-Af Amer) POC Glucose (mg/dL) 194 H Random Glucose Calcium Phosphorus Magnesium Total Bilirubin AST ALT Alkaline Phosphatase NT-Pro-B Natriuret Pep Total Protein Albumin Globulin Albumin/Globulin Ratio Arterial Blood Potassium 4.1 Urine Color Yellow Urine Clarity Clear Urine pH 5.0 Ur Specific [place] 1.014 Urine Protein Negative Urine Glucose (UA) Normal Urine Ketones Negative Urine Blood 2+ H Urine Nitrate Negative Urine Bilirubin Negative Urine Urobilinogen Normal Ur Leukocyte Esterase Trace Urine WBC (Auto) 5 Urine RBC (Auto) 10 H Ur Squamous Epith Cells < 1 Urine Bacteria Rare Blood Type Antibody Screen 10/27/18 11:35 WBC RBC Hgb Hct MCV MCH MCHC RDW Plt Count MPV Neut % (Auto) Lymph % (Auto) Garfield % (Auto) Eos % (Auto) Baso % (Auto) Neut # (Auto) Lymph # (Auto) Garfield # (Auto) Eos # (Auto) Baso # (Auto) Neutrophils % (Manual) Lymphocytes % (Manual) Monocytes % (Manual) Platelet Estimate PT INR APTT Puncture Site pCO2 pO2 HCO3 ABG pH ABG Total CO2 ABG O2 Saturation ABG Base Excess ABG Hemoglobin ABG Carboxyhemoglobin POC ABG HHb (Measured) ABG Methemoglobin Andres Test ABG Potassium A-a O2 Difference Respiratory Index Hgb O2 Saturation Sodium Chloride Glucose Lactate Liter Flow Vent Mode Mechanical Rate FiO2 Tidal Volume PEEP Inspiratory BiPAP Expiratory BiPAP Crit Value Called To Crit Value Called By Crit Value Read Back Blood Gas Notified Time Potassium Carbon Dioxide Anion Gap BUN Creatinine Est GFR ( Amer) Est GFR (Non-Af Amer) POC Glucose (mg/dL) 207 H Random Glucose Calcium Phosphorus Magnesium Total Bilirubin AST ALT Alkaline Phosphatase NT-Pro-B Natriuret Pep Total Protein Albumin Globulin Albumin/Globulin Ratio Arterial Blood Potassium Urine Color Urine Clarity Urine pH Ur Specific [place] Urine Protein Urine Glucose (UA) Urine Ketones Urine Blood Urine Nitrate Urine Bilirubin Urine Urobilinogen Ur Leukocyte Esterase Urine WBC (Auto) Urine RBC (Auto) Ur Squamous Epith Cells Urine Bacteria Blood Type Antibody Screen Radiology Impressions: Radiology Impressions Abdomen/Pelvis CT 10/26/18 17:39 IMPRESSION: Findings are again suggestive of acute pancreatitis with possible perforation and adjacent abscess formation. Dilated stomach suspicious for gastro paresis. With defined low-attenuation lesion adjacent to the left kidney again noted if clinically warranted CT guided aspiration/biopsy may be obtained. Additional findings as discussed above. Preliminary report was submitted by [facility] contains concordant findings. Chest X-Ray 10/26/18 17:54 IMPRESSION: Bibasilar atelectasis and mild pulmonary vascular congestion. Chest X-Ray 10/27/18 04:00 IMPRESSION: Status post intubation. Appropriate position of the support devices. Suspicious for left lung base atelectasis. Fingerstick Blood Sugar Results: 205 Review of Systems - Review of Systems Systems not reviewed;Unavailable: Intubated Critical Care Progress Note - Ventilator Checklist Head of Bed 30 Degrees: Yes Daily Sedation Vacation: Yes Daily Assessment of Readiness to Wean: Yes Daily Spontaneous Breathing Trial: Yes PUD Prophalyxis: Yes DVT Prophylaxis: Yes Oral Care with Chlorhexidine Gluconate {CHG}: Yes - Nutrition Nutrition: Nutrition Category Date Time Status NPO Diet [DIET] Diets 10/26/18 Dinner Active Assessment/Plan (1) Acute respiratory failure with hypercapnia Assessment and plan: 78yo M. PMHx HTN, DM type 2, CAD, HLD, HTN, CAD, CABG, CKD. was being treated medically for suspected rupture appendicitis. Patient started retaining CO2 and went into respiratory failure, requiring intubation early this morning. Neuro: alert, tapering off precedex gtt Pulm: acute respiratory failure with hypercapnia, on vent, on PRVC. I suspect patient went into respiratory failure secondary to multiple factors. He probable CHF, obtaining echo, with pulmonary edema from fluid resuscitation for sepsis. Most likely has EFRAIN or OHS. He also received multiple doses of morphine. These three things in combination possibly set him into CO2 retention with subsequent respiratory failure. Will extubate to BIPAP with BIPAP at night. CV: hemodynamically stable. Hem: no acute issues Renal: acute on chronic kidney disease. LR for 24h. albumin drip and lasix for diuresis. Endo: DM type 2, SISS q6h. GI: NPO, tube feedings, Glucerna. ID: sepsis from ruptured appendicitis, improving, continue meropenem and metronidazole. Collection most likely too small for drainage. Appendectomy to be done at a later date once patient is more stable and current critical illness is not primarily secondary to intra-abdominal processes. DVT proph - renally dosed lovenox GI proph - protonix stewart for strict I/O's during acute illness Code status - full code Critical Care Time spent 35 minutes Multi-disciplinary rounds were performed with house staff, nursing, speech therapy, respiratory therapy, pharmacy and nutrition with integrated input from the primary team/attending and other consulting services. The documented time is cumulative and includes review of patient data/exams/labs/chart review and examination of the patient on rounds and throughout the day; time is exclusive of any procedures or teaching time. Current Visit: Yes Status: Acute
[2018-10-28] MEDS: Meropenem 500 MG in Sodium Chloride 0.9% 100 ML IVPB SCH ×2 (02:00→14:04)
[2018-10-28] MEDS: metroNIDAZOLE IV 500 mg/100 ml 500 MG/100 ML BAG IVPB SCH ×3 (03:00→18:13)
[2018-10-28 04:39] LABS: ABG ALLEN TEST POS; ARTERIAL BLOOD GAS HCO3 24.2 mmol/L (21-28); ARTERIAL BLOOD GAS O2 SAT 97.3 % (95-98); ARTERIAL BLOOD GAS PCO2 50 mm/Hg (35-45); ARTERIAL BLOOD GAS PH 7.32 (7.35-7.45); ARTERIAL BLOOD GAS PO2 93 mm/Hg (80-100); ARTERIAL BLOOD GAS TCO2 27.3 mmol/L (22-28)
[2018-10-28] MEDS: Lactated Ringer's 1,000 ML IV SCH ×2 (05:40→21:00)
[2018-10-28 05:41] LABS: BASO % 0.3 % (0.0-2.0); EOS # 0.1 K/uL (0.0-0.7); HEMOGLOBIN 9.7 g/dL (12.0-18.0); LYMPH # 0.7 K/uL (1.0-4.3); MEAN CORPUSCULAR HEMOGLOBIN 29.8 pg (27.0-31.0); MEAN PLATELET VOLUME 8.9 fL (7.2-11.7); MONO % 13.3 % (0.0-10.0); NEUT # 5.7 K/uL (1.8-7.0); NEUT % 76.4 % (50.0-75.0); PLATELET COUNT 159 K/uL (130-400); RBC 3.27 Mil/uL (4.40-5.90); RED CELL DISTRIBUTION WIDTH 14.5 % (11.5-14.5); WHITE BLOOD COUNT 7.5 K/uL (4.8-10.8)
[2018-10-28] MEDS: (Novolog) Insulin Aspart, Recombinant 100 u/ml 10 ml vial SC SCH ×4 (05:41→18:30)
[2018-10-28 06:06] LABS: ALB/GLOB RATIO 0.9 (1.0-2.1); ALBUMIN 2.5 g/dL (3.5-5.0); CALCIUM 7.7 mg/dl (8.6-10.4)
--- NOTE | 2018-10-28 08:00 | CP.PCM.PN ---
Subjective - Date & Time of Evaluation Date of Evaluation: 10/28/18 Time of Evaluation: 07:10 - Subjective Subjective: General Surgery Pt seen and examined. No acute issues overnight. Intubated and sedated. Grimaces with RLQ palpation if aroused enough. Objective - Vital Signs/Intake and Output Vital Signs (last 24 hours): Temp Pulse Resp BP Pulse Ox 99.9 F H 78 16 108/46 L 77 L 10/28/18 04:00 10/28/18 07:00 10/27/18 08:00 10/28/18 07:00 10/28/18 06:00 Intake and Output: 10/28/18 10/28/18 06:59 18:59 Intake Total 2194.4 152 Output Total 1000 Balance 1194.4 152 - Medications Medications: Current Medications Enoxaparin Sodium (Lovenox) 30 mg SC DAILY [facility] Metronidazole (Flagyl) 500 mg in 100 mls @ 100 mls/hr IVPB Q8H ERIKA; Protocol Last Admin: 10/28/18 03:00 Dose: 100 mls/hr Meropenem 500 mg/ Sodium (Chloride) 100 mls @ 100 mls/hr IVPB Q12H ERIKA; Protocol Last Admin: 10/28/18 02:00 Dose: 100 mls/hr Lactated Ringer's (Lactated Ringer's) 1,000 mls @ 75 mls/hr IV .[id number] ERIKA Last Admin: 10/28/18 05:40 Dose: Not Given Fentanyl Citrate 2,500 mcg/ (Sodium Chloride) 250 mls @ 21.8 mls/hr IV .[id number] ERIKA; Protocol Last Admin: 10/28/18 05:40 Dose: Not Given Insulin Aspart (Novolog) 0 unit SC Q6H ERIKA; Protocol Last Admin: 10/28/18 05:41 Dose: Not Given Pantoprazole Sodium (Protonix Inj) 40 mg IVP DAILY E[facility]KA Last Admin: 10/27/18 10:39 Dose: 40 mg - Labs Labs: 10/28/18 05:36 10/28/18 05:36 PT 15.2 SECONDS (9.7-12.2) H 10/27/18 03:32 INR 1.4 10/27/18 03:32 APTT 66 SECONDS (21-34) H 10/27/18 03:32 - Constitutional Appears: Non-toxic, No Acute Distress - Head Exam Head Exam: ATRAUMATIC, NORMOCEPHALIC - Eye Exam Eye Exam: PERRL. absent: Scleral icterus - ENT Exam Additional comments: NGT in place with bilious drainage - Respiratory Exam Respiratory Exam: NORMAL BREATHING PATTERN (on vent). absent: Accessory Muscle Use, Respiratory Distress - Cardiovascular Exam Cardiovascular Exam: +S1, +S2. absent: Bradycardia, Tachycardia - GI/Abdominal Exam GI & Abdominal Exam: Distended (mild), Soft, Tenderness (in RLQ). absent: Firm, Guarding, Rigid - Neurological Exam Neurological Exam: Awake Additional comments: intubated, follows commands when aroused first - Skin Skin Exam: Dry, Warm Assessment and Plan - Assessment and Plan (Free Text) Assessment: 78M with ruptured appendicitis, now in respiratory and renal failure Plan: Continue ABX No surgery needed at this time. Continue medical management per ICU team Wean as able Monitor UOP: improving D/W Dr. Jayme Dykes PGY4
[2018-10-28 08:50] LABS: ANISOCYTOSIS SLIGHT; EOSINOPHIL 3 % (0-4); HYPOCHROMIC SLIGHT; LYMPHOCYTE 8 % (20-40); MONOCYTE 12 % (0-10); NEUTROPHIL 77 % (50-75); PLATELET ESTIMATE NORMAL (NORMAL); POIKILOCYTOSIS SLIGHT; TOTAL CELLS COUNTED 100
[2018-10-28 08:51] LABS: PLATELET CLUMPS PRESENT
--- NOTE | 2018-10-28 10:22 | CP.PCM.PN ---
Subjective - Date & Time of Evaluation Date of Evaluation: 10/28/18 Time of Evaluation: 10:00 - Subjective Subjective: intubated family at bedside afeb Objective - Vital Signs/Intake and Output Vital Signs (last 24 hours): Temp Pulse Resp BP Pulse Ox 99.9 F H 78 16 108/46 L 77 L 10/28/18 04:00 10/28/18 07:00 10/27/18 08:00 10/28/18 07:00 10/28/18 06:00 Intake and Output: 10/28/18 10/28/18 06:59 18:59 Intake Total 2194.4 152 Output Total 1000 Balance 1194.4 152 - Medications Medications: Current Medications Enoxaparin Sodium (Lovenox) 30 mg SC DAILY [facility] Last Admin: 10/28/18 09:17 Dose: 30 mg Heparin Sodium (Porcine) (Heparin) 5,000 units SC Q8 ERIKA Metronidazole (Flagyl) 500 mg in 100 mls @ 100 mls/hr IVPB Q8H ERIKA; Protocol Last Admin: 10/28/18 03:00 Dose: 100 mls/hr Meropenem 500 mg/ Sodium (Chloride) 100 mls @ 100 mls/hr IVPB Q12H ERIKA; Protocol Last Admin: 10/28/18 02:00 Dose: 100 mls/hr Lactated Ringer's (Lactated Ringer's) 1,000 mls @ 75 mls/hr IV .[id number] ERIKA Last Admin: 10/28/18 05:40 Dose: Not Given Fentanyl Citrate 2,500 mcg/ (Sodium Chloride) 250 mls @ 21.8 mls/hr IV .[id number] ERIKA; Protocol Last Admin: 10/28/18 05:40 Dose: Not Given Insulin Aspart (Novolog) 0 unit SC Q6H ERIKA; Protocol Last Admin: 10/28/18 05:41 Dose: Not Given Pantoprazole Sodium (Protonix Inj) 40 mg IVP DAILY [facility] Last Admin: 10/28/18 09:17 Dose: 40 mg - Labs Labs: 10/28/18 05:36 10/28/18 05:36 PT 15.2 SECONDS (9.7-12.2) H 10/27/18 03:32 INR 1.4 10/27/18 03:32 APTT 66 SECONDS (21-34) H 10/27/18 03:32 - Constitutional Appears: Non-toxic, Chronically Ill - Head Exam Head Exam: ATRAUMATIC, NORMOCEPHALIC - Eye Exam Eye Exam: absent: Scleral icterus - ENT Exam ENT Exam: Mucous Membranes Dry - Neck Exam Neck Exam: absent: Lymphadenopathy - Respiratory Exam Respiratory Exam: Decreased Breath Sounds, Clear to Ausculation Bilateral - Cardiovascular Exam Cardiovascular Exam: REGULAR RHYTHM, +S1, +S2 - GI/Abdominal Exam GI & Abdominal Exam: Distended, Soft, Hypoactive Bowel Sounds. absent: Tenderness - Rectal Exam Rectal Exam: Deferred - Exam Exam: NORMAL INSPECTION - Extremities Exam Extremities Exam: absent: Pedal Edema - Back Exam Back Exam: absent: CVA tenderness (L), CVA tenderness (R) - Neurological Exam Neurological Exam: Altered Additional comments: sedated - Psychiatric Exam Psychiatric exam: Depressed - Skin Skin Exam: Dry Assessment and Plan (1) Abdominal pain Status: Acute (2) Acute appendicitis with rupture Status: Acute - Assessment and Plan (Free Text) Assessment: s/p ruptured appendix/ sepsis / RILEY/ VDRF cont IV antibiotics no surgery planned for now as pt status improving
--- NOTE | 2018-10-28 10:31 | RAD ---
Date of service: 10/28/2018 HISTORY: intubated COMPARISON: 10/27/2018 FINDINGS: LUNGS: No active pulmonary disease. PLEURA: No significant pleural effusion identified, no pneumothorax apparent. CARDIOVASCULAR: No aortic atherosclerotic calcification present. Mild cardiomegaly no pulmonary vascular congestion. OSSEOUS STRUCTURES: No significant abnormalities. VISUALIZED UPPER ABDOMEN: Normal. OTHER FINDINGS: None. IMPRESSION: Endotracheal tube in satisfactory position. The distal nasogastric tube is not visualized. An overpenetrated upper abdominal film may be necessary to visualize the nasogastric tube
[2018-10-28 12:08] LABS: ARTERIAL BLOOD GAS HCO3 24.5 mmol/L (21-28); ARTERIAL BLOOD GAS PCO2 39 mm/Hg (35-45); ARTERIAL BLOOD GAS PO2 91 mm/Hg (80-100); ARTERIAL BLOOD GAS TCO2 25.4 mmol/L (22-28)
--- NOTE | 2018-10-28 12:21 | CP.CCUPN ---
CCU Subjective - Physician Review Subjective (Free Text): 10/28/18 12:18 Critical Care Progress Note for Dr. Marie's service Patient seen and examined at bedside. Patient unable to be aroused likely 2/2 pain meds. ROS limited. Critical Care Time Spent (in minutes): 35 CCU Objective - Vital Signs / Intake & Output Vital Signs (Last 4 hours): Vital Signs Pulse BP Pulse Ox 10/28/18 12:00 75 105/43 L 98 10/28/18 11:00 70 101/52 L 99 10/28/18 10:00 69 110/49 L 99 10/28/18 09:00 70 108/43 L 98 Intake and Output (Last 8hrs): Intake & Output 10/27/18 10/28/18 10/28/18 22:59 06:59 14:59 Intake Total 989.4 1505 1110 Output Total 1150 450 320 Balance -160.6 1055 790 Intake: IV 80 170 350 Intake, IV Amount 809.4 1285 760 Left Forearm 100 300 Right Forearm 525 600 375 y line to R Forearm 184.4 385 385 Albumin 100 50 Output: Urine 1150 450 320 Urethral (Stewart) 1150 450 320 - Physical Exam Head: Positive for: Atraumatic, Normocephalic Pupils: Positive for: PERRL Extroacular Muscles: Positive for: EOMI Conjunctiva: Positive for: Normal Ears: Positive for: Normal Mouth: Positive for: Moist Mucous Membranes Nose (External): Positive for: Atraumatic Cardiovascular: Positive for: Regular Rate and Rhythm, Normal S1, S2 Abdomen: Positive for: Normal Bowel Sounds. Negative for: Tenderness, Distention, Peritoneal Signs Upper Extremity: Positive for: Normal Inspection Lower Extremity: Negative for: Edema Psychiatric: Positive for: Alert - Medications Active Medications: Active Medications Generic Name Dose Route Start Last Admin Trade Name Freq PRN Reason Stop Dose Admin Enoxaparin Sodium 30 mg 10/27/18 12:15 10/28/18 09:17 Lovenox SC 30 mg DAILY ERIKA Administration Heparin Sodium (Porcine) 5,000 units 10/28/18 14:00 Heparin SC Q8 ERIKA Metronidazole 500 mg in 100 mls @ 100 mls/hr 10/24/18 19:00 10/28/18 11:39 Flagyl IVPB 100 mls/hr Q8H ERIKA Administration Protocol Meropenem 500 mg/ Sodium 100 mls @ 100 mls/hr 10/27/18 02:00 10/28/18 02:00 Chloride IVPB 100 mls/hr Q12H ERIKA Administration Protocol Lactated Ringer's 1,000 mls @ 75 mls/hr 10/27/18 12:18 10/28/18 05:40 Lactated Ringer's IV Not Given .[id number] ERIKA Fentanyl Citrate 2,500 mcg/ 250 mls @ 21.8 mls/hr 10/27/18 18:00 10/28/18 10:00 Sodium Chloride IV 6 mcg/kg/hr .[id number] ERIKA 65.4 mls/hr Titration Protocol 2 MCG/KG/HR Insulin Aspart 0 unit 10/27/18 12:30 10/28/18 11:40 Novolog SC Not Given Q6H ERIKA Protocol Pantoprazole Sodium 40 mg 10/27/18 10:00 10/28/18 09:17 Protonix Inj IVP 40 mg DAILY ERIKA Administration - Patient Studies Lab Studies: Microbiology Studies 10/27/18 10:50 Urine Culture - Final Urine,Catheterized No Growth (<1,000 CFU/ML) 10/23/18 20:50 Blood Culture - Preliminary Blood NO GROWTH AFTER 4 DAYS 10/23/18 20:00 Blood Culture - Preliminary Blood NO GROWTH AFTER 4 DAYS Lab Studies 10/28/18 10/28/18 10/28/18 Range/Units 12:04 05:36 05:36 WBC 7.5 (4.8-10.8) K/uL RBC 3.27 L (4.40-5.90) Mil/uL Hgb 9.7 L (12.0-18.0) g/dL Hct 30.4 L (35.0-51.0) % MCV 93.0 (80.0-94.0) fL MCH 29.8 (27.0-31.0) pg MCHC 32.0 L (33.0-37.0) g/dL RDW 14.5 (11.5-14.5) % Plt Count 159 (130-400) K/uL MPV 8.9 (7.2-11.7) fL Neut % (Auto) 76.4 H (50.0-75.0) % Lymph % (Auto) 9.0 L (20.0-40.0) % Mineral % (Auto) 13.3 H (0.0-10.0) % Eos % (Auto) 1.0 (0.0-4.0) % Baso % (Auto) 0.3 (0.0-2.0) % Neut # (Auto) 5.7 (1.8-7.0) K/uL Lymph # (Auto) 0.7 L (1.0-4.3) K/uL Mineral # (Auto) 1.0 H (0.0-0.8) K/uL Eos # (Auto) 0.1 (0.0-0.7) K/uL Baso # (Auto) 0.0 (0.0-0.2) K/uL Neutrophils % (Manual) 77 H (50-75) % Lymphocytes % (Manual) 8 L (20-40) % Monocytes % (Manual) 12 H (0-10) % Eosinophils % (Manual) 3 (0-4) % Differential Comment Platelet Estimate Normal (NORMAL) Plt Clumps, EDTA Present Hypochromasia (manual) Slight Poikilocytosis (manual Slight Anisocytosis (manual) Slight Puncture Site Lf pCO2 39 (35-45) mm/Hg pO2 91 (80-100) mm/Hg HCO3 24.5 (21-28) mmol/L ABG pH 7.40 (7.35-7.45) ABG Total CO2 25.4 (22-28) mmol/L ABG O2 Saturation (95-98) % ABG Base Excess -0.5 (-2.0-3.0) mmol/L Andres Test Na ABG Potassium 3.6 (3.6-5.2) mmol/L A-a O2 Difference 217.0 mm/Hg Respiratory Index 2.4 Sodium 154.0 H 144 (132-148) mmol/l Chloride 123.0 H 113 H (98-107) mmol/L Glucose 121 H (75-110) mg/dl Lactate 0.8 (0.7-2.1) mmol/L Vent Mode Mechanical Rate 20 FiO2 50.0 % Tidal Volume 500 PEEP 5 Crit Value Called To Dr lance Crit Value Called By Sundeep cisneros welt treater Crit Value Read Back Y Blood Gas Notified Time 1208 Potassium 4.3 (3.6-5.2) mmol/L Carbon Dioxide 24 (22-30) mmol/L Anion Gap 11 (10-20) BUN 83 H (9-20) mg/dL Creatinine 2.5 H (0.8-1.5) mg/dL Est GFR ( Amer) 30 Est GFR (Non-Af Amer) 25 POC Glucose (mg/dL) (65-110) mg/dL Random Glucose 139 H (75-110) mg/dL Calcium 7.7 L (8.6-10.4) mg/dl Phosphorus 2.1 L (2.5-4.5) mg/dL Magnesium 2.3 (1.6-2.3) mg/dL Total Bilirubin 0.7 (0.2-1.3) mg/dL AST 12 L D (17-59) U/L ALT 29 (21-72) U/L Alkaline Phosphatase 42 (38-126) U/L Total Protein 5.2 L (6.3-8.3) g/dL Albumin 2.5 L (3.5-5.0) g/dL Globulin 2.7 (2.2-3.9) gm/dL Albumin/Globulin Ratio 0.9 L (1.0-2.1) Arterial Blood Potassium 3.6 (3.6-5.2) mmol/L 10/28/18 10/28/18 10/28/18 Range/Units 05:10 04:30 00:02 WBC (4.8-10.8) K/uL RBC (4.40-5.90) Mil/uL Hgb (12.0-18.0) g/dL Hct (35.0-51.0) % MCV (80.0-94.0) fL MCH (27.0-31.0) pg MCHC (33.0-37.0) g/dL RDW (11.5-14.5) % Plt Count (130-400) K/uL MPV (7.2-11.7) fL Neut % (Auto) (50.0-75.0) % Lymph % (Auto) (20.0-40.0) % Mineral % (Auto) (0.0-10.0) % Eos % (Auto) (0.0-4.0) % Baso % (Auto) (0.0-2.0) % Neut # (Auto) (1.8-7.0) K/uL Lymph # (Auto) (1.0-4.3) K/uL Mineral # (Auto) (0.0-0.8) K/uL Eos # (Auto) (0.0-0.7) K/uL Baso # (Auto) (0.0-0.2) K/uL Neutrophils % (Manual) (50-75) % Lymphocytes % (Manual) (20-40) % Monocytes % (Manual) (0-10) % Eosinophils % (Manual) (0-4) % Differential Comment Platelet Estimate (NORMAL) Plt Clumps, EDTA Hypochromasia (manual) Poikilocytosis (manual Anisocytosis (manual) Puncture Site Rr pCO2 50 H (35-45) mm/Hg pO2 93 (80-100) mm/Hg HCO3 24.2 (21-28) mmol/L ABG pH 7.32 L (7.35-7.45) ABG Total CO2 27.3 (22-28) mmol/L ABG O2 Saturation 97.3 (95-98) % ABG Base Excess -0.9 (-2.0-3.0) mmol/L Andres Test Pos ABG Potassium 4.2 (3.6-5.2) mmol/L A-a O2 Difference 201.0 mm/Hg Respiratory Index 2.2 Sodium 148.0 (132-148) mmol/l Chloride 115.0 H (98-107) mmol/L Glucose 143 H (75-110) mg/dl Lactate 0.8 (0.7-2.1) mmol/L Vent Mode Prvc Mechanical Rate 16 FiO2 50.0 % Tidal Volume 500 PEEP 5 Crit Value Called To Crit Value Called By Crit Value Read Back Blood Gas Notified Time Potassium (3.6-5.2) mmol/L Carbon Dioxide (22-30) mmol/L Anion Gap (10-20) BUN (9-20) mg/dL Creatinine (0.8-1.5) mg/dL Est GFR ( Amer) Est GFR (Non-Af Amer) POC Glucose (mg/dL) 97 155 H (65-110) mg/dL Random Glucose (75-110) mg/dL Calcium (8.6-10.4) mg/dl Phosphorus (2.5-4.5) mg/dL Magnesium (1.6-2.3) mg/dL Total Bilirubin (0.2-1.3) mg/dL AST (17-59) U/L ALT (21-72) U/L Alkaline Phosphatase (38-126) U/L Total Protein (6.3-8.3) g/dL Albumin (3.5-5.0) g/dL Globulin (2.2-3.9) gm/dL Albumin/Globulin Ratio (1.0-2.1) Arterial Blood Potassium 4.2 (3.6-5.2) mmol/L 10/27/18 Range/Units 17:30 WBC (4.8-10.8) K/uL RBC (4.40-5.90) Mil/uL Hgb (12.0-18.0) g/dL Hct (35.0-51.0) % MCV (80.0-94.0) fL MCH (27.0-31.0) pg MCHC (33.0-37.0) g/dL RDW (11.5-14.5) % Plt Count (130-400) K/uL MPV (7.2-11.7) fL Neut % (Auto) (50.0-75.0) % Lymph % (Auto) (20.0-40.0) % Mineral % (Auto) (0.0-10.0) % Eos % (Auto) (0.0-4.0) % Baso % (Auto) (0.0-2.0) % Neut # (Auto) (1.8-7.0) K/uL Lymph # (Auto) (1.0-4.3) K/uL Mineral # (Auto) (0.0-0.8) K/uL Eos # (Auto) (0.0-0.7) K/uL Baso # (Auto) (0.0-0.2) K/uL Neutrophils % (Manual) (50-75) % Lymphocytes % (Manual) (20-40) % Monocytes % (Manual) (0-10) % Eosinophils % (Manual) (0-4) % Differential Comment Platelet Estimate (NORMAL) Plt Clumps, EDTA Hypochromasia (manual) Poikilocytosis (manual Anisocytosis (manual) Puncture Site pCO2 (35-45) mm/Hg pO2 (80-100) mm/Hg HCO3 (21-28) mmol/L ABG pH (7.35-7.45) ABG Total CO2 (22-28) mmol/L ABG O2 Saturation (95-98) % ABG Base Excess (-2.0-3.0) mmol/L Andres Test ABG Potassium (3.6-5.2) mmol/L A-a O2 Difference mm/Hg Respiratory Index Sodium (132-148) mmol/l Chloride (98-107) mmol/L Glucose (75-110) mg/dl Lactate (0.7-2.1) mmol/L Vent Mode Mechanical Rate FiO2 % Tidal Volume PEEP Crit Value Called To Crit Value Called By Crit Value Read Back Blood Gas Notified Time Potassium (3.6-5.2) mmol/L Carbon Dioxide (22-30) mmol/L Anion Gap (10-20) BUN (9-20) mg/dL Creatinine (0.8-1.5) mg/dL Est GFR ( Amer) Est GFR (Non-Af Amer) POC Glucose (mg/dL) 169 H (65-110) mg/dL Random Glucose (75-110) mg/dL Calcium (8.6-10.4) mg/dl Phosphorus (2.5-4.5) mg/dL Magnesium (1.6-2.3) mg/dL Total Bilirubin (0.2-1.3) mg/dL AST (17-59) U/L ALT (21-72) U/L Alkaline Phosphatase (38-126) U/L Total Protein (6.3-8.3) g/dL Albumin (3.5-5.0) g/dL Globulin (2.2-3.9) gm/dL Albumin/Globulin Ratio (1.0-2.1) Arterial Blood Potassium (3.6-5.2) mmol/L Laboratory Results - last 24 hr 10/27/18 10/28/18 10/28/18 17:30 00:02 04:30 WBC RBC Hgb Hct MCV MCH MCHC RDW Plt Count MPV Neut % (Auto) Lymph % (Auto) Mineral % (Auto) Eos % (Auto) Baso % (Auto) Neut # (Auto) Lymph # (Auto) Mineral # (Auto) Eos # (Auto) Baso # (Auto) Neutrophils % (Manual) Lymphocytes % (Manual) Monocytes % (Manual) Eosinophils % (Manual) Differential Comment Platelet Estimate Plt Clumps, EDTA Hypochromasia (manual) Poikilocytosis (manual Anisocytosis (manual) Puncture Site Rr pCO2 50 H pO2 93 HCO3 24.2 ABG pH 7.32 L ABG Total CO2 27.3 ABG O2 Saturation 97.3 ABG Base Excess -0.9 Andres Test Pos ABG Potassium 4.2 A-a O2 Difference 201.0 Respiratory Index 2.2 Sodium 148.0 Chloride 115.0 H Glucose 143 H Lactate 0.8 Vent Mode Prvc Mechanical Rate 16 FiO2 50.0 Tidal Volume 500 PEEP 5 Crit Value Called To Crit Value Called By Crit Value Read Back Blood Gas Notified Time Potassium Carbon Dioxide Anion Gap BUN Creatinine Est GFR ( Amer) Est GFR (Non-Af Amer) POC Glucose (mg/dL) 169 H 155 H Random Glucose Calcium Phosphorus Magnesium Total Bilirubin AST ALT Alkaline Phosphatase Total Protein Albumin Globulin Albumin/Globulin Ratio Arterial Blood Potassium 4.2 10/28/18 10/28/18 10/28/18 05:10 05:36 05:36 WBC 7.5 RBC 3.27 L Hgb 9.7 L Hct 30.4 L MCV 93.0 MCH 29.8 MCHC 32.0 L RDW 14.5 Plt Count 159 MPV 8.9 Neut % (Auto) 76.4 H Lymph % (Auto) 9.0 L Mineral % (Auto) 13.3 H Eos % (Auto) 1.0 Baso % (Auto) 0.3 Neut # (Auto) 5.7 Lymph # (Auto) 0.7 L Mineral # (Auto) 1.0 H Eos # (Auto) 0.1 Baso # (Auto) 0.0 Neutrophils % (Manual) 77 H Lymphocytes % (Manual) 8 L Monocytes % (Manual) 12 H Eosinophils % (Manual) 3 Differential Comment Platelet Estimate Normal Plt Clumps, EDTA Present Hypochromasia (manual) Slight Poikilocytosis (manual Slight Anisocytosis (manual) Slight Puncture Site pCO2 pO2 HCO3 ABG pH ABG Total CO2 ABG O2 Saturation ABG Base Excess Andres Test ABG Potassium A-a O2 Difference Respiratory Index Sodium 144 Chloride 113 H Glucose Lactate Vent Mode Mechanical Rate FiO2 Tidal Volume PEEP Crit Value Called To Crit Value Called By Crit Value Read Back Blood Gas Notified Time Potassium 4.3 Carbon Dioxide 24 Anion Gap 11 BUN 83 H Creatinine 2.5 H Est GFR ( Amer) 30 Est GFR (Non-Af Amer) 25 POC Glucose (mg/dL) 97 Random Glucose 139 H Calcium 7.7 L Phosphorus 2.1 L Magnesium 2.3 Total Bilirubin 0.7 AST 12 L D ALT 29 Alkaline Phosphatase 42 Total Protein 5.2 L Albumin 2.5 L Globulin 2.7 Albumin/Globulin Ratio 0.9 L Arterial Blood Potassium 10/28/18 12:04 WBC RBC Hgb Hct MCV MCH MCHC RDW Plt Count MPV Neut % (Auto) Lymph % (Auto) Mineral % (Auto) Eos % (Auto) Baso % (Auto) Neut # (Auto) Lymph # (Auto) Mineral # (Auto) Eos # (Auto) Baso # (Auto) Neutrophils % (Manual) Lymphocytes % (Manual) Monocytes % (Manual) Eosinophils % (Manual) Differential Comment Platelet Estimate Plt Clumps, EDTA Hypochromasia (manual) Poikilocytosis (manual Anisocytosis (manual) Puncture Site Lf pCO2 39 pO2 91 HCO3 24.5 ABG pH 7.40 ABG Total CO2 25.4 ABG O2 Saturation ABG Base Excess -0.5 Andres Test Na ABG Potassium 3.6 A-a O2 Difference 217.0 Respiratory Index 2.4 Sodium 154.0 H Chloride 123.0 H Glucose 121 H Lactate 0.8 Vent Mode Mechanical Rate 20 FiO2 50.0 Tidal Volume 500 PEEP 5 Crit Value Called To Dr lance Crit Value Called By Sundeep cisneros welt treater Crit Value Read Back Y Blood Gas Notified Time 1208 Potassium Carbon Dioxide Anion Gap BUN Creatinine Est GFR ( Amer) Est GFR (Non-Af Amer) POC Glucose (mg/dL) Random Glucose Calcium Phosphorus Magnesium Total Bilirubin AST ALT Alkaline Phosphatase Total Protein Albumin Globulin Albumin/Globulin Ratio Arterial Blood Potassium 3.6 Radiology Impressions: Radiology Impressions Chest X-Ray 10/27/18 04:00 IMPRESSION: Status post intubation. Appropriate position of the support devices. Suspicious for left lung base atelectasis. Chest X-Ray 10/28/18 07:00 IMPRESSION: Endotracheal tube in satisfactory position. The distal nasogastric tube is not visualized. An overpenetrated upper abdominal film may be necessary to visualize the nasogastric tube Fingerstick Blood Sugar Results: 136 Results Reviewed to Date: Yes Review of Systems - Review of Systems Systems not reviewed;Unavailable: Intubated Critical Care Progress Note - Ventilator Checklist Head of Bed 30 Degrees: Yes Daily Sedation Vacation: Yes Daily Assessment of Readiness to Wean: Yes Daily Spontaneous Breathing Trial: Yes PUD Prophalyxis: Yes DVT Prophylaxis: Yes Oral Care with Chlorhexidine Gluconate {CHG}: Yes - Vent Settings MODE:: PRVC TIDAL VOLUME:: 500 RESP RATE:: 20 FIO2:: 50 PEEP:: 8 - Extremities/Vascular Catheter Insertion Criteria: Need for accurate measurement of output in critically ill patient - Prophylaxis GI Prophylaxis GI: PPI - Prophylaxis DVT Prophylaxis DVT: Heparin SQ - Nutrition Nutrition: Nutrition Category Date Time Status NPO Diet [DIET] Diets 10/26/18 Dinner Active Assessment/Plan - Assessment and Plan (Free Text) Assessment: 78yo M. PMHx HTN, DM type 2, CAD, HLD, HTN, CAD, CABG, CKD. was being treated medically for suspected rupture appendicitis. Patient started retaining CO2 and went into respiratory failure, requiring intubation early this morning. Neuro: difficult to arouse; on fentanyl drip Pulm: acute respiratory failure with hypercapnia, on vent, on PRVC. Etiology: CHF vs pain meds vs EFRAIN/OHS (possible that it is multifactorial); increased RR to 20 to blow off CO2 CV: hemodynamically stable. Hem: no acute issues Renal: acute on chronic kidney disease. LR @ 75 Endo: DM type 2, SISS q6h. GI: NPO, tube feedings, Glucerna. ID: [id number] from ruptured appendicitis, improving, continue meropenem and metronidazole. Collection most likely too small for drainage. Appendectomy to be done at a later date once patient is more stable and current critical illness is not primarily secondary to intra-abdominal processes. DVT proph - Heparin 5000 units sc q8h GI proph - protonix stewart for strict I/O's during acute illness
--- NOTE | 2018-10-28 16:07 | CARD ---
APPROVED REPORT Date of service: 10/28/2018 EXAM: Two-dimensional and M-mode echocardiogram with Doppler and color Doppler. Other Information Quality : TDSRhythm : INDICATION CAD Congestive Heart Failure 2D DIMENSIONS IVSd1.0 (0.7-1.1cm)LVDd4.8 (3.9-5.9cm) PWd1.0 (0.7-1.1cm)LA [id number] (18-58mL) LVDs3.3 (2.5-4.0cm)FS (%) 32.4 % LVEF (%)60.5 (>50%)LVEF (Cho's)57.89 % M-Mode DIMENSIONS Left Atrium (MM)3.80 (2.5-4.0cm)IVSd1.18 (0.7-1.1cm) Aortic Root3.78 (2.2-3.7cm)LVDd5.28 (4.0-5.6cm) Aortic Cusp Exc.2.68 (1.5-2.0cm)PWd0.94 (0.7-1.1cm) FS (%) 33 %LVDs3.54 (2.0-3.8cm) LVEF (%)61 (>50%) Mitral Valve MV E Rlzqtnli50.2cm/sMV A Xrmqlimy11.9cm/sE/A ratio1.0 TDI Lateral E' Peak V11.39cm/sMedial E' Peak V6.74cm/sE/Lateral E'8.6 E/Medial E'14.6 LEFT VENTRICLE The left ventricle is normal size. There is normal left ventricular wall thickness. The left ventricular systolic function is normal. The left ventricular ejection fraction is within the normal range. There is normal LV segmental wall motion. The left ventricular diastolic function is normal. RIGHT VENTRICLE The right ventricle is borderline to mildly enlarged. The right ventricular systolic function is normal. ATRIA The left atrial index is moderately increased. The right atrium size is normal. The interatrial septum is intact with no evidence for an atrial septal defect. AORTIC VALVE The aortic valve is normal in structure. No aortic regurgitation is present. There is no aortic valvular stenosis. MITRAL VALVE The mitral valve is normal in structure. There is no mitral valve regurgitation noted. TRICUSPID VALVE The tricuspid valve is normal in structure. There is no tricuspid valve regurgitation noted. PULMONIC VALVE The pulmonary valve is normal in structure. There is trace to mild pulmonic valvular regurgitation. GREAT VESSELS The aortic root is normal in size. The IVC is dilated. PERICARDIAL EFFUSION There is no pericardial effusion. <Conclusion> The left ventricular systolic function is normal.There is normal LV segmental wall motion. The right ventricle is borderline to mildly enlarged. The right ventricular systolic function is normal. The left atrial index is moderately increased. Dilated IVC with poor inspiration collapse is consistent with elevated right atrial pressure. There is no pericardial effusion.
[2018-10-28] MEDS ORDERED: Acetaminophen IV 1,000 MG in Premixed IV 1 EA IV ONE (16:51)
--- NOTE | 2018-10-28 19:10 | CP.PCM.PN ---
Subjective - Date & Time of Evaluation Date of Evaluation: 10/28/18 Time of Evaluation: 11:30 - Subjective Subjective: clinically same Objective - Vital Signs/Intake and Output Vital Signs (last 24 hours): Temp Pulse Resp BP Pulse Ox 99.9 F H 76 16 115/56 L 96 10/28/18 04:00 10/28/18 18:00 10/27/18 08:00 10/28/18 18:00 10/28/18 18:00 Intake and Output: 10/28/18 10/29/18 18:59 06:59 Intake Total 2624 Output Total 660 Balance 1964 - Medications Medications: Current Medications Enoxaparin Sodium (Lovenox) 30 mg SC DAILY ERIKA Last Admin: 10/28/18 09:17 Dose: 30 mg Heparin Sodium (Porcine) (Heparin) 5,000 units SC Q8 ERIKA Last Admin: 10/28/18 14:05 Dose: 5,000 units Metronidazole (Flagyl) 500 mg in 100 mls @ 100 mls/hr IVPB Q8H ERIKA; Protocol Last Admin: 10/28/18 18:13 Dose: 100 mls/hr Meropenem 500 mg/ Sodium (Chloride) 100 mls @ 100 mls/hr IVPB Q12H ERIKA; Protoc ol Last Admin: 10/28/18 14:04 Dose: 100 mls/hr Lactated Ringer's (Lactated Ringer's) 1,000 mls @ 75 mls/hr IV .[id number] ERIKA Last Admin: 10/28/18 05:40 Dose: Not Given Fentanyl Citrate 2,500 mcg/ (Sodium Chloride) 250 mls @ 21.8 mls/hr IV .[id number] ERIKA; Protocol Last Admin: 10/28/18 16:00 Dose: 6 mcg/kg/hr, 65.4 mls/hr Insulin Aspart (Novolog) 0 unit SC Q6H ERIKA; Protocol Last Admin: 10/28/18 18:30 Dose: Not Given Pantoprazole Sodium (Protonix Inj) 40 mg IVP DAILY ERIKA Last Admin: 10/28/18 09:17 Dose: 40 mg - Labs Labs: 10/28/18 05:36 10/28/18 05:36 PT 15.2 SECONDS (9.7-12.2) H 10/27/18 03:32 INR 1.4 10/27/18 03:32 APTT 66 SECONDS (21-34) H 10/27/18 03:32 - Constitutional Appears: Well - Head Exam Head Exam: ATRAUMATIC, NORMAL INSPECTION, NORMOCEPHALIC - Eye Exam Eye Exam: EOMI, Normal appearance, PERRL Pupil Exam: NORMAL ACCOMODATION, PERRL - ENT Exam ENT Exam: Mucous Membranes Moist, Normal Exam - Neck Exam Neck Exam: Full ROM, Normal Inspection. absent: Lymphadenopathy - Respiratory Exam Respiratory Exam: Decreased Breath Sounds - Cardiovascular Exam Cardiovascular Exam: REGULAR RHYTHM, +S1, +S2 - GI/Abdominal Exam GI & Abdominal Exam: Soft, Diminished Bowel Sounds - Rectal Exam Rectal Exam: Deferred
--- NOTE | 2018-10-28 20:21 | CP.PCM.PN ---
Subjective - Date & Time of Evaluation Date of Evaluation: 10/28/18 Time of Evaluation: 20:18 - Subjective Subjective: Pt is seen and examined On Vent support Events noted Objective - Vital Signs/Intake and Output Vital Signs (last 24 hours): Temp Pulse Resp BP Pulse Ox 100.2 F H 76 16 115/56 L 96 10/28/18 17:00 18 18:00 10/27/18 08:00 10/28/18 18:00 10/28/18 18:00 Intake and Output: 10/28/18 10/29/18 18:59 06:59 Intake Total 2516 Output Total 770 Balance 1746 - Medications Medications: Current Medications Enoxaparin Sodium (Lovenox) 30 mg SC DAILY [facility] Last Admin: 10/28/18 09:17 Dose: 30 mg Heparin Sodium (Porcine) (Heparin) 5,000 units SC Q8 ERIKA Last Admin: 10/28/18 14:05 Dose: 5,000 units Metronidazole (Flagyl) 500 mg in 100 mls @ 100 mls/hr IVPB Q8H ERIKA; Protocol Last Admin: 10/28/18 18:13 Dose: 100 mls/hr Meropenem 500 mg/ Sodium (Chloride) 100 mls @ 100 mls/hr IVPB Q12H ERIKA; Protocol Last Admin: 10/28/18 14:04 Dose: 100 mls/hr Lactated Ringer's (Lactated Ringer's) 1,000 mls @ 75 mls/hr IV .[id number] ERIKA Last Admin: 10/28/18 05:40 Dose: Not Given Fentanyl Citrate 2,500 mcg/ (Sodium Chloride) 250 mls @ 21.8 mls/hr IV .[id number] ERIKA; Protocol Last Admin: 10/28/18 16:00 Dose: 6 mcg/kg/hr, 65.4 mls/hr Insulin Aspart (Novolog) 0 unit SC Q6H ERIKA; Protocol Last Admin: 10/28/18 18:30 Dose: Not Given Pantoprazole Sodium (Protonix Inj) 40 mg IVP DAILY [facility] Last Admin: 10/28/18 09:17 Dose: 40 mg - Labs Labs: 10/28/18 05:36 10/28/18 05:36 PT 15.2 SECONDS (9.7-12.2) H 10/27/18 03:32 INR 1.4 10/27/18 03:32 APTT 66 SECONDS (21-34) H 10/27/18 03:32 - Head Exam Head Exam: NORMAL INSPECTION - Eye Exam Eye Exam: Normal appearance - ENT Exam ENT Exam: Mucous Membranes Moist - Respiratory Exam Respiratory Exam: Clear to Ausculation Bilateral - Cardiovascular Exam Cardiovascular Exam: REGULAR RHYTHM, +S1, +S2 - GI/Abdominal Exam GI & Abdominal Exam: Soft, Normal Bowel Sounds - Extremities Exam Extremities Exam: Pedal Edema Assessment and Plan (1) Abdominal pain Status: Acute (2) Acute appendicitis with rupture Status: Acute (3) CVA (cerebral vascular accident) Status: Acute (4) Diabetes mellitus Status: Chronic (5) RILEY (acute kidney injury) Status: Acute (6) Acute respiratory failure with hypercapnia Status: Acute - Assessment and Plan (Free Text) Plan: Continue Abx Surgery follow up Nephrology follow up Monitor electrolytes and Cr Improving renal fcn DVT/GI prophalaxis
[2018-10-28] MEDS ORDERED: Sodium Chloride 0.9% 500 ML IV ONE (21:24)
--- NOTE | 2018-10-28 23:51 | CP.PCM.CON ---
Past Patient History - Infectious Disease Hx of Infectious Diseases: None - Past Medical History & Family History Past Medical History?: Yes - Past Social History Smoking Status: Former Smoker - CARDIAC Hx Hypercholesterolemia: Yes Hx Hypertension: Yes - PULMONARY Hx Bronchitis: Yes - NEUROLOGICAL Hx Neurological Disorder: Yes HX Cerebrovascular Accident: Yes - HEENT Hx HEENT Problems: No - RENAL Hx Chronic Kidney Disease: No - ENDOCRINE/METABOLIC Hx Endocrine Disorders: Yes Hx Diabetes Mellitus Type 2: Yes - HEMATOLOGICAL/ONCOLOGICAL Hx Blood Disorders: Yes Hx Blood Transfusions: Yes Hx Blood Transfusion Reaction: No - INTEGUMENTARY Hx Dermatological Problems: No - MUSCULOSKELETAL/RHEUMATOLOGICAL Hx Falls: No - GASTROINTESTINAL Hx Gastrointestinal Disorders: Yes - GENITOURINARY/GYNECOLOGICAL Hx Genitourinary Disorders: No - PSYCHIATRIC Hx Substance Use: No - SURGICAL HISTORY Hx Cholecystectomy: Yes Hx Coronary Artery Bypass Graft: Yes (2011) - ANESTHESIA Hx Anesthesia: Yes Hx Anesthesia Reactions: No Hx Malignant Hyperthermia: No Meds Allergies/Adverse Reactions: Allergies Allergy/AdvReac Type Severity Reaction Status Date / Time No Known Allergies Allergy Verified 10/23/18 19:42 - Medications Medications: Current Medications Enoxaparin Sodium (Lovenox) 30 mg SC DAILY [facility] Last Admin: 10/28/18 09:17 Dose: 30 mg Heparin Sodium (Porcine) (Heparin) 5,000 units SC Q8 ERIKA Last Admin: 10/28/18 21:50 Dose: 5,000 units Metronidazole (Flagyl) 500 mg in 100 mls @ 100 mls/hr IVPB Q8H ERIKA; Protocol Last Admin: 10/28/18 18:13 Dose: 100 mls/hr Meropenem 500 mg/ Sodium (Chloride) 100 mls @ 100 mls/hr IVPB Q12H ERIKA; Protocol Last Admin: 10/28/18 14:04 Dose: 100 mls/hr Lactated Ringer's (Lactated Ringer's) 1,000 mls @ 75 mls/hr IV .[id number] ERIKA Last Admin: 10/28/18 21:00 Dose: 75 mls/hr Fentanyl Citrate 2,500 mcg/ (Sodium Chloride) 250 mls @ 21.8 mls/hr IV .[id number] ERIKA; Protocol Last Titration: 10/28/18 22:34 Dose: 6 mcg/kg/hr, 65.4 mls/hr Insulin Aspart (Novolog) 0 unit SC Q6H ERIKA; Protocol Last Admin: 10/28/18 18:30 Dose: Not Given Pantoprazole Sodium (Protonix Inj) 40 mg IVP DAILY [facility] Last Admin: 10/28/18 09:17 Dose: 40 mg Results - Vital Signs Recent Vital Signs: Last Vital Signs Temp 102 F H 10/28/18 20:00 Pulse 133 H 10/28/18 22:01 Resp 20 10/28/18 20:00 BP 115/62 10/28/18 22:01 Pulse Ox 94 L 10/28/18 22:01 - Labs Result Diagrams: 10/28/18 05:36 10/28/18 05:36 Labs: Laboratory Results - last 24 hr 10/28/18 10/28/18 10/28/18 00:02 04:30 05:10 WBC RBC Hgb Hct MCV MCH MCHC RDW Plt Count MPV Neut % (Auto) Lymph % (Auto) [place] % (Auto) Eos % (Auto) Baso % (Auto) Neut # (Auto) Lymph # (Auto) [place] # (Auto) Eos # (Auto) Baso # (Auto) Neutrophils % (Manual) Lymphocytes % (Manual) Monocytes % (Manual) Eosinophils % (Manual) Differential Comment Platelet Estimate Plt Clumps, EDTA Hypochromasia (manual) Poikilocytosis (manual Anisocytosis (manual) Puncture Site Rr pCO2 50 H pO2 93 HCO3 24.2 ABG pH 7.32 L ABG Total CO2 27.3 ABG O2 Saturation 97.3 ABG Base Excess -0.9 Andres Test Pos ABG Potassium 4.2 A-a O2 Difference 201.0 Respiratory Index 2.2 Sodium 148.0 Chloride 115.0 H Glucose 143 H Lactate 0.8 Vent Mode Prvc Mechanical Rate 16 FiO2 50.0 Tidal Volume 500 PEEP 5 Crit Value Called To Crit Value Called By Crit Value Read Back Blood Gas Notified Time Potassium Carbon Dioxide Anion Gap BUN Creatinine Est GFR ( Amer) Est GFR (Non-Af Amer) POC Glucose (mg/dL) 155 H 97 Random Glucose Calcium Phosphorus Magnesium Total Bilirubin AST ALT Alkaline Phosphatase Total Protein Albumin Globulin Albumin/Globulin Ratio Arterial Blood Potassium 4.2 10/28/18 10/28/18 10/28/18 05:36 05:36 11:20 WBC 7.5 RBC 3.27 L Hgb 9.7 L Hct 30.4 L MCV 93.0 MCH 29.8 MCHC 32.0 L RDW 14.5 Plt Count 159 MPV 8.9 Neut % (Auto) 76.4 H Lymph % (Auto) 9.0 L [place] % (Auto) 13.3 H Eos % (Auto) 1.0 Baso % (Auto) 0.3 Neut # (Auto) 5.7 Lymph # (Auto) 0.7 L [place] # (Auto) 1.0 H Eos # (Auto) 0.1 Baso # (Auto) 0.0 Neutrophils % (Manual) 77 H Lymphocytes % (Manual) 8 L Monocytes % (Manual) 12 H Eosinophils % (Manual) 3 Differential Comment Platelet Estimate Normal Plt Clumps, EDTA Present Hypochromasia (manual) Slight Poikilocytosis (manual Slight Anisocytosis (manual) Slight Puncture Site pCO2 pO2 HCO3 ABG pH ABG Total CO2 ABG O2 Saturation ABG Base Excess Andres Test ABG Potassium A-a O2 Difference Respiratory Index Sodium 144 Chloride 113 H Glucose Lactate Vent Mode Mechanical Rate FiO2 Tidal Volume PEEP Crit Value Called To Crit Value Called By Crit Value Read Back Blood Gas Notified Time Potassium 4.3 Carbon Dioxide 24 Anion Gap 11 BUN 83 H Creatinine 2.5 H Est GFR ( Amer) 30 Est GFR (Non-Af Amer) 25 POC Glucose (mg/dL) 136 H Random Glucose 139 H Calcium 7.7 L Phosphorus 2.1 L Magnesium 2.3 Total Bilirubin 0.7 AST 12 L D ALT 29 Alkaline Phosphatase 42 Total Protein 5.2 L Albumin 2.5 L Globulin 2.7 Albumin/Globulin Ratio 0.9 L Arterial Blood Potassium 10/28/18 10/28/18 12:04 17:32 WBC RBC Hgb Hct MCV MCH MCHC RDW Plt Count MPV Neut % (Auto) Lymph % (Auto) [place] % (Auto) Eos % (Auto) Baso % (Auto) Neut # (Auto) Lymph # (Auto) [place] # (Auto) Eos # (Auto) Baso # (Auto) Neutrophils % (Manual) Lymphocytes % (Manual) Monocytes % (Manual) Eosinophils % (Manual) Differential Comment Platelet Estimate Plt Clumps, EDTA Hypochromasia (manual) Poikilocytosis (manual Anisocytosis (manual) Puncture Site Lf pCO2 39 pO2 91 HCO3 24.5 ABG pH 7.40 ABG Total CO2 25.4 ABG O2 Saturation ABG Base Excess -0.5 Andres Test Na ABG Potassium 3.6 A-a O2 Difference 217.0 Respiratory Index 2.4 Sodium 154.0 H Chloride 123.0 H Glucose 121 H Lactate 0.8 Vent Mode Mechanical Rate 20 FiO2 50.0 Tidal Volume 500 PEEP 5 Crit Value Called To Dr lance 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
[2018-10-29] MEDS: (Novolog) Insulin Aspart, Recombinant 100 u/ml 10 ml vial SC SCH ×5 (00:11→23:52)
[2018-10-29] MEDS: Meropenem 500 MG in Sodium Chloride 0.9% 100 ML IVPB SCH ×2 (01:38→14:31)
[2018-10-29] MEDS: metroNIDAZOLE IV 500 mg/100 ml 500 MG/100 ML BAG IVPB SCH ×3 (03:24→18:06)
[2018-10-29] MEDS: Lactated Ringer's 1,000 ML IV SCH ×2 (05:04→16:52)
[2018-10-29 05:27] LABS: ARTERIAL BLOOD GAS HCO3 22.6 mmol/L (21-28); ARTERIAL BLOOD GAS O2 SAT 96.2 % (95-98); ARTERIAL BLOOD GAS PCO2 55 mm/Hg (35-45); ARTERIAL BLOOD GAS PH 7.26 (7.35-7.45); ARTERIAL BLOOD GAS PO2 86 mm/Hg (80-100); ARTERIAL BLOOD GAS TCO2 26.4 mmol/L (22-28)
[2018-10-29 05:57] LABS: BASO % 0.3 % (0.0-2.0); EOS # 0.1 K/uL (0.0-0.7); EOS % 0.9 % (0.0-4.0); HEMOGLOBIN 10.8 g/dL (12.0-18.0); LYMPH # 0.7 K/uL (1.0-4.3); LYMPH % 7.8 % (20.0-40.0); MEAN CELL VOLUME 94.9 fL (80.0-94.0); MEAN CORPUSCULAR HEMOGLOBIN 30.7 pg (27.0-31.0); MEAN CORPUSCULAR HGB CONC 32.4 g/dL (33.0-37.0); MEAN PLATELET VOLUME 9.7 fL (7.2-11.7); MONO % 11.9 % (0.0-10.0); NEUT # 6.8 K/uL (1.8-7.0); NEUT % 79.1 % (50.0-75.0); PLATELET COUNT 170 K/uL (130-400); RED CELL DISTRIBUTION WIDTH 14.9 % (11.5-14.5); WHITE BLOOD COUNT 8.6 K/uL (4.8-10.8)
[2018-10-29 06:24] LABS: ALBUMIN 2.7 g/dL (3.5-5.0); CALCIUM 8.1 mg/dl (8.6-10.4)
[2018-10-29 08:21] LABS: EOSINOPHIL 1 % (0-4); LYMPHOCYTE 4 % (20-40); MONOCYTE 10 % (0-10); NEUTROPHIL 85 % (50-75); PLATELET ESTIMATE NORMAL (NORMAL); TOTAL CELLS COUNTED 100
[2018-10-29 08:22] LABS: ANISOCYTOSIS SLIGHT; HYPOCHROMIC SLIGHT; POIKILOCYTOSIS SLIGHT
--- NOTE | 2018-10-29 09:59 | RAD ---
Date of service: 10/29/2018 HISTORY: intubated COMPARISON: 10/28/2018 FINDINGS: LUNGS: No interval consolidation. An endotracheal tube is approximately 4 cm cephalad to the geeta. There is apparent additional tubing possible nasogastric tubing partially visualized also apparently right lateral to the endotracheal tube-however its distal course is difficult to visualize and clinical confirmation of a 2nd nasogastric tube here is needed. If 1 is present and recommend repeat exam with greater with exposure to more optimally visualize its distal course. Currently the contrast is very limited in this regard PLEURA: No significant pleural effusion identified, no pneumothorax apparent. CARDIOVASCULAR: There is absence of aortic atherosclerotic calcification on x-ray. Mild cardiomegaly. Coronary artery bypass clips and midline sternotomy status noted. No significant appearing pulmonary venous congestion. OSSEOUS STRUCTURES: Midline sternotomy VISUALIZED UPPER ABDOMEN: Normal. OTHER FINDINGS: None. IMPRESSION: Limited exam in terms of ruling and/or ruling out presence of a nasogastric tube-this is questioned over the cervical and upper thoracic level of the esophagus. However a distal coursing nasogastric tube is difficult to confirm present insert course. Clinical correlation is essential. If a NG tube is in place then consider repeat exam with greater exposure to visualize its distal course. If no NG tube is inserted than that this is not necessary. Otherwise no acute cardiopulmonary pathology noted. The endotracheal tube is well positioned. Comments: Study marked for PA review .
--- NOTE | 2018-10-29 10:10 | CP.PCM.PN ---
Subjective - Date & Time of Evaluation Date of Evaluation: 10/29/18 Time of Evaluation: 08:00 - Subjective Subjective: still spiking intermittently arousable NAD intubated Objective - Vital Signs/Intake and Output Vital Signs (last 24 hours): Temp Pulse Resp BP Pulse Ox 99.6 F 72 20 120/57 L 99 10/29/18 08:00 10/29/18 09:00 10/29/18 04:00 10/29/18 09:00 10/29/18 09:00 Intake and Output: 10/29/18 10/29/18 06:59 18:59 Intake Total 2873 357 Output Total 1200 130 Balance 1673 227 - Medications Medications: Current Medications Enoxaparin Sodium (Lovenox) 30 mg SC DAILY [facility] Last Admin: 10/28/18 09:17 Dose: 30 mg Heparin Sodium (Porcine) (Heparin) 5,000 units SC Q8 ERIKA Last Admin: 10/29/18 05:35 Dose: 5,000 units Metronidazole (Flagyl) 500 mg in 100 mls @ 100 mls/hr IVPB Q8H ERIKA; Protocol Last Admin: 10/29/18 10:05 Dose: 100 mls/hr Meropenem 500 mg/ Sodium (Chloride) 100 mls @ 100 mls/hr IVPB Q12H ERIKA; Protocol Last Admin: 10/29/18 01:38 Dose: 100 mls/hr Lactated Ringer's (Lactated Ringer's) 1,000 mls @ 75 mls/hr IV .[id number] ERIKA Last Admin: 10/29/18 05:04 Dose: Not Given Fentanyl Citrate 2,500 mcg/ (Sodium Chloride) 250 mls @ 21.8 mls/hr IV .[id number] ERIKA; Protocol Last Admin: 10/29/18 06:17 Dose: 4 mcg/kg/hr, 43.6 mls/hr Insulin Aspart (Novolog) 0 unit SC Q6H ERIKA; Protocol Last Admin: 10/29/18 05:35 Dose: Not Given Pantoprazole Sodium (Protonix Inj) 40 mg IVP DAILY [facility] Last Admin: 10/29/18 10:06 Dose: 40 mg - Labs Labs: 10/29/18 05:51 10/29/18 05:51 PT 15.2 SECONDS (9.7-12.2) H 10/27/18 03:32 INR 1.4 10/27/18 03:32 APTT 66 SECONDS (21-34) H 10/27/18 03:32 - Constitutional Appears: Non-toxic, No Acute Distress - Head Exam Head Exam: NORMOCEPHALIC - Eye Exam Eye Exam: absent: Scleral icterus Pupil Exam: NORMAL ACCOMODATION - ENT Exam ENT Exam: Mucous Membranes Dry - Neck Exam Neck Exam: absent: Lymphadenopathy - Respiratory Exam Respiratory Exam: Decreased Breath Sounds - Cardiovascular Exam Cardiovascular Exam: REGULAR RHYTHM - GI/Abdominal Exam GI & Abdominal Exam: Distended, Soft - Rectal Exam Rectal Exam: Deferred - Exam Exam: NORMAL INSPECTION - Extremities Exam Extremities Exam: Pedal Edema. absent: Calf Tenderness - Back Exam Back Exam: absent: CVA tenderness (L), CVA tenderness (R) - Neurological Exam Neurological Exam: Alert, Awake Assessment and Plan (1) Abdominal pain Status: Acute (2) Acute appendicitis with rupture Status: Acute - Assessment and Plan (Free Text) Assessment: consider venous doppler reculture for temp spike consider IR drainage if fever persists
[2018-10-29 10:29] LABS: ARTERIAL BLOOD GAS HCO3 23.2 mmol/L (21-28); ARTERIAL BLOOD GAS O2 SAT 97.7 % (95-98); ARTERIAL BLOOD GAS PCO2 44 mm/Hg (35-45); ARTERIAL BLOOD GAS PH 7.34 (7.35-7.45); ARTERIAL BLOOD GAS PO2 104 mm/Hg (80-100); ARTERIAL BLOOD GAS TCO2 25.1 mmol/L (22-28)
--- NOTE | 2018-10-29 10:34 | US ---
Date of service: 10/29/2018 PROCEDURE: Ultrasound of the Kidneys HISTORY: unique COMPARISON: CT abdomen pelvis without contrast performed 10/26/18 TECHNIQUE: Sonogram of the kidneys. FINDINGS: RIGHT KIDNEY: Measures: 11.1 x 4.8 x 5.0 cm. 1.7 cm echogenic structure at the left lower pole with posterior acoustic shadowing consistent with calcification. No hydronephrosis. LEFT KIDNEY: Measures: 12.3 x 6.2 x 5.6 cm. No hydronephrosis or obstructing calculus identified. OTHER FINDINGS: Ortega catheter within the urinary bladder. IMPRESSION: 1.7 cm echogenic structure at the left lower pole with posterior acoustic shadowing consistent with calcification. CT performed 10/26/18 demonstrates low-attenuation lesion associated with this calcification. Correlate clinically. No hydronephrosis bilaterally. Ortega catheter within the urinary bladder.
--- NOTE | 2018-10-29 12:03 | CP.CCUPN ---
<Ny Saucedo - Last Filed: 10/29/18 12:00> CCU Subjective - Physician Review Subjective (Free Text): 10/28/18 12:18 Critical Care Progress Note for Dr. Hyde's service Patient seen and examined at bedside. Patient arousable to verbal stimuli. Patient can respond to questioning by nodding yes or no. Overnight patient spiked a temperature and had elevated heart rate. Patient was given IV tyelnol and cardizem which resolved the symptoms. 10/29/18 12:00 10/29/18 12:01 CCU Objective - Vital Signs / Intake & Output Vital Signs (Last 4 hours): Vital Signs Pulse BP Pulse Ox 10/29/18 11:00 75 114/70 99 10/29/18 10:00 79 112/64 100 10/29/18 09:00 72 120/57 L 99 Intake and Output (Last 8hrs): Intake & Output 10/28/18 10/29/18 10/29/18 22:59 06:59 14:59 Intake Total 2206 1482 620 Output Total 880 650 320 Balance 1326 832 300 Weight 284 lb 1.6 oz Intake: IV 630 370 Intake, IV Amount 1576 1112 620 Right Forearm 611 462 220 Right Wrist 725 650 400 y line to R Forearm 240 Output: Drainage 310 200 Left Nare 310 200 Urine 570 450 320 Urethral (Stewart) 570 450 320 Other: # Bowel Movements 0 0 - Physical Exam Physical Exam Limitations: Positive for: Clinical Condition Head: Positive for: Atraumatic, Normocephalic Pupils: Positive for: PERRL Extroacular Muscles: Positive for: EOMI Conjunctiva: Positive for: Normal Ears: Positive for: Normal Mouth: Positive for: Moist Mucous Membranes Nose (External): Positive for: Atraumatic Cardiovascular: Positive for: Regular Rate and Rhythm, Normal S1, S2 Abdomen: Positive for: Normal Bowel Sounds. Negative for: Tenderness, Distention, Peritoneal Signs, Rebound, Guarding Upper Extremity: Positive for: Normal Inspection. Negative for: Cyanosis, Edema Lower Extremity: Positive for: Normal Inspection. Negative for: Edema Skin: Positive for: Warm, Normal Color Psychiatric: Positive for: Alert - Medications Active Medications: Active Medications Generic Name Dose Route Start Last Admin Trade Name Freq PRN Reason Stop Dose Admin Enoxaparin Sodium 30 mg 10/27/18 12:15 12/17/18 09:17 Lovenox SC 30 mg DAILY ERIKA Administration Heparin Sodium (Porcine) 5,000 units 10/28/18 14:00 10/29/18 05:35 Heparin SC 5,000 units Q8 ERIKA Administration Metronidazole 500 mg in 100 mls @ 100 mls/hr 10/24/18 19:00 10/29/18 10:05 Flagyl IVPB 100 mls/hr Q8H [facility] Administration Protocol Meropenem 500 mg/ Sodium 100 mls @ 100 mls/hr 10/27/18 02:00 10/29/18 01:38 Chloride IVPB 100 mls/hr Q12H [facility] Administration Protocol Lactated Ringer's 1,000 mls @ 75 mls/hr 10/27/18 12:18 10/29/18 05:04 Lactated Ringer's IV Not Given .[id number] ERIKA Fentanyl Citrate 2,500 mcg/ 250 mls @ 21.8 mls/hr 10/27/18 18:00 10/29/18 06:17 Sodium Chloride IV 4 mcg/kg/hr .[id number] ERIKA 43.6 mls/hr Administration Protocol 2 MCG/KG/HR Insulin Aspart 0 unit 10/27/18 12:30 10/29/18 05:35 Novolog SC Not Given Q6H [facility] Protocol Pantoprazole Sodium 40 mg 10/27/18 10:00 10/29/18 10:06 Protonix Inj IVP 40 mg DAILY ERIKA Administration - Patient Studies Lab Studies: Microbiology Studies 10/23/18 20:00 Blood Culture - Final Blood NO GROWTH AFTER 5 DAYS Gram Stain - Final TEST NOT PERFORMED 10/23/18 20:50 Blood Culture - Final Blood NO GROWTH AFTER 5 DAYS Gram Stain - Final TEST NOT PERFORMED 10/27/18 07:51 MRSA Culture (Admit) - Final Naris MRSA NOT DETECTED 10/27/18 10:50 Urine Culture - Final Urine,Catheterized No Growth (<1,000 CFU/ML) Lab Studies 10/29/18 10/29/18 10/29/18 Range/Units 10:18 06:58 05:51 WBC (4.8-10.8) K/uL RBC (4.40-5.90) Mil/uL Hgb (12.0-18.0) g/dL Hct (35.0-51.0) % MCV (80.0-94.0) fL MCH (27.0-31.0) pg MCHC (33.0-37.0) g/dL RDW (11.5-14.5) % Plt Count (130-400) K/uL MPV (7.2-11.7) fL Neut % (Auto) (50.0-75.0) % Lymph % (Auto) (20.0-40.0) % [place] % (Auto) (0.0-10.0) % Eos % (Auto) (0.0-4.0) % Baso % (Auto) (0.0-2.0) % Neut # (Auto) (1.8-7.0) K/uL Lymph # (Auto) (1.0-4.3) K/uL [place] # (Auto) (0.0-0.8) K/uL Eos # (Auto) (0.0-0.7) K/uL Baso # (Auto) (0.0-0.2) K/uL Neutrophils % (Manual) (50-75) % Lymphocytes % (Manual) (20-40) % Monocytes % (Manual) (0-10) % Eosinophils % (Manual) (0-4) % Platelet Estimate (NORMAL) Hypochromasia (manual) Poikilocytosis (manual Anisocytosis (manual) Puncture Site Rba pCO2 44 (35-45) mm/Hg pO2 104 H (80-100) mm/Hg HCO3 23.2 (21-28) mmol/L ABG pH 7.34 L (7.35-7.45) ABG Total CO2 25.1 (22-28) mmol/L ABG O2 Saturation 97.7 (95-98) % ABG Base Excess -2.2 L (-2.0-3.0) mmol/L ABG Hemoglobin (11.7-17.4) g/dL ABG Carboxyhemoglobin (0.5-1.5) % POC ABG HHb (Measured) (0.0-5.0) % ABG Methemoglobin (0.0-3.0) % Andres Test Na ABG Potassium 4.3 (3.6-5.2) mmol/L A-a O2 Difference 198.0 mm/Hg Respiratory Index 1.9 Hgb O2 Saturation (95.0-98.0) % Sodium 151.0 H 148 (132-148) mmol/l Chloride 122.0 H 118 H (98-107) mmol/L Glucose 152 H (75-110) mg/dl Lactate 0.8 (0.7-2.1) mmol/L Vent Mode Prvc Mechanical Rate 20 FiO2 50.0 % Tidal Volume 550 PEEP 5 Crit Value Called To Crit Value Called By Crit Value Read Back Blood Gas Notified Time Potassium 4.9 (3.6-5.2) mmol/L Carbon Dioxide 23 (22-30) mmol/L Anion Gap 13 (10-20) BUN 82 H (9-20) mg/dL Creatinine 2.5 H (0.8-1.5) mg/dL Est GFR ( Amer) 30 Est GFR (Non-Af Amer) 25 POC Glucose (mg/dL) (65-110) mg/dL Random Glucose 179 H (75-110) mg/dL Calcium 8.1 L (8.6-10.4) mg/dl Phosphorus 3.2 (2.5-4.5) mg/dL Magnesium 2.5 H (1.6-2.3) mg/dL Total Bilirubin 0.5 (0.2-1.3) mg/dL AST 31 (17-59) U/L ALT 27 (21-72) U/L Alkaline Phosphatase 45 (38-126) U/L Total Protein 5.6 L (6.3-8.3) g/dL Albumin 2.7 L (3.5-5.0) g/dL Globulin 2.8 (2.2-3.9) gm/dL Albumin/Globulin Ratio 1.0 (1.0-2.1) Arterial Blood Potassium 4.3 (3.6-5.2) mmol/L Ur Random Sodium 36 mmol/L 10/29/18 10/29/18 10/29/18 Range/Units 05:51 05:31 05:11 WBC 8.6 (4.8-10.8) K/uL RBC 3.50 L (4.40-5.90) Mil/uL Hgb 10.8 L (12.0-18.0) g/dL Hct 33.2 L (35.0-51.0) % MCV 94.9 H (80.0-94.0) fL MCH 30.7 (27.0-31.0) pg MCHC 32.4 L (33.0-37.0) g/dL RDW 14.9 H (11.5-14.5) % Plt Count 170 (130-400) K/uL MPV 9.7 (7.2-11.7) fL Neut % (Auto) 79.1 H (50.0-75.0) % Lymph % (Auto) 7.8 L (20.0-40.0) % [place] % (Auto) 11.9 H (0.0-10.0) % Eos % (Auto) 0.9 (0.0-4.0) % Baso % (Auto) 0.3 (0.0-2.0) % Neut # (Auto) 6.8 (1.8-7.0) K/uL Lymph # (Auto) 0.7 L (1.0-4.3) K/uL [place] # (Auto) 1.0 H (0.0-0.8) K/uL Eos # (Auto) 0.1 (0.0-0.7) K/uL Baso # (Auto) 0.0 (0.0-0.2) K/uL Neutrophils % (Manual) 85 H (50-75) % Lymphocytes % (Manual) 4 L (20-40) % Monocytes % (Manual) 10 (0-10) % Eosinophils % (Manual) 1 (0-4) % Platelet Estimate Normal (NORMAL) Hypochromasia (manual) Slight Poikilocytosis (manual Slight Anisocytosis (manual) Slight Puncture Site Rb pCO2 55 H (35-45) mm/Hg pO2 86 (80-100) mm/Hg HCO3 22.6 (21-28) mmol/L ABG pH 7.26 L (7.35-7.45) ABG Total CO2 26.4 (22-28) mmol/L ABG O2 Saturation 96.2 (95-98) % ABG Base Excess -2.9 L (-2.0-3.0) mmol/L ABG Hemoglobin 11.0 L (11.7-17.4) g/dL ABG Carboxyhemoglobin 0.6 (0.5-1.5) % POC ABG HHb (Measured) 3.7 (0.0-5.0) % ABG Methemoglobin 0.8 (0.0-3.0) % Andres Test Na ABG Potassium (3.6-5.2) mmol/L A-a O2 Difference 202.0 mm/Hg Respiratory Index 2.3 Hgb O2 Saturation 94.9 L (95.0-98.0) % Sodium (132-148) mmol/l Chloride (98-107) mmol/L Glucose (75-110) mg/dl Lactate (0.7-2.1) mmol/L Vent Mode Prvc Mechanical Rate 20 FiO2 50.0 % Tidal Volume 500 PEEP 8 Crit Value Called To Crit Value Called By Crit Value Read Back Blood Gas Notified Time Potassium (3.6-5.2) mmol/L Carbon Dioxide (22-30) mmol/L Anion Gap (10-20) BUN (9-20) mg/dL Creatinine (0.8-1.5) mg/dL Est GFR ( Amer) Est GFR (Non-Af Amer) POC Glucose (mg/dL) 161 H (65-110) mg/dL Random Glucose (75-110) mg/dL Calcium (8.6-10.4) mg/dl Phosphorus (2.5-4.5) mg/dL Magnesium (1.6-2.3) mg/dL Total Bilirubin (0.2-1.3) mg/dL AST (17-59) U/L ALT (21-72) U/L Alkaline Phosphatase (38-126) U/L Total Protein (6.3-8.3) g/dL Albumin (3.5-5.0) g/dL Globulin (2.2-3.9) gm/dL Albumin/Globulin Ratio (1.0-2.1) Arterial Blood Potassium (3.6-5.2) mmol/L Ur Random Sodium mmol/L 10/28/18 10/28/18 10/28/18 Range/Units 23:46 17:32 12:04 WBC (4.8-10.8) K/uL RBC (4.40-5.90) Mil/uL Hgb (12.0-18.0) g/dL Hct (35.0-51.0) % MCV (80.0-94.0) fL MCH (27.0-31.0) pg MCHC (33.0-37.0) g/dL RDW (11.5-14.5) % Plt Count (130-400) K/uL MPV (7.2-11.7) fL Neut % (Auto) (50.0-75.0) % Lymph % (Auto) (20.0-40.0) % [place] % (Auto) (0.0-10.0) % Eos % (Auto) (0.0-4.0) % Baso % (Auto) (0.0-2.0) % Neut # (Auto) (1.8-7.0) K/uL Lymph # (Auto) (1.0-4.3) K/uL [place] # (Auto) (0.0-0.8) K/uL Eos # (Auto) (0.0-0.7) K/uL Baso # (Auto) (0.0-0.2) K/uL Neutrophils % (Manual) (50-75) % Lymphocytes % (Manual) (20-40) % Monocytes % (Manual) (0-10) % Eosinophils % (Manual) (0-4) % Platelet Estimate (NORMAL) Hypochromasia (manual) Poikilocytosis (manual Anisocytosis (manual) Puncture Site Lf pCO2 39 (35-45) mm/Hg pO2 91 (80-100) mm/Hg HCO3 24.5 (21-28) mmol/L ABG pH 7.40 (7.35-7.45) ABG Total CO2 25.4 (22-28) mmol/L ABG O2 Saturation (95-98) % ABG Base Excess -0.5 (-2.0-3.0) mmol/L ABG Hemoglobin (11.7-17.4) g/dL ABG Carboxyhemoglobin (0.5-1.5) % POC ABG HHb (Measured) (0.0-5.0) % ABG Methemoglobin (0.0-3.0) % Andres Test Na ABG Potassium 3.6 (3.6-5.2) mmol/L A-a O2 Difference 217.0 mm/Hg Respiratory Index 2.4 Hgb O2 Saturation (95.0-98.0) % Sodium 154.0 H (132-148) mmol/l Chloride 123.0 H (98-107) mmol/L Glucose 121 H (75-110) mg/dl Lactate 0.8 (0.7-2.1) mmol/L Vent Mode Mechanical Rate 20 FiO2 50.0 % Tidal Volume 500 PEEP 5 Crit Value Called To Dr lance Crit Value Called By Sundeep cisneros telephone station installer Crit Value Read Back Y Blood Gas Notified Time 1208 Potassium (3.6-5.2) mmol/L Carbon Dioxide (22-30) mmol/L Anion Gap (10-20) BUN (9-20) mg/dL Creatinine (0.8-1.5) mg/dL Est GFR ( Amer) Est GFR (Non-Af Amer) POC Glucose (mg/dL) 124 H 123 H (65-110) mg/dL Random Glucose (75-110) mg/dL Calcium (8.6-10.4) mg/dl Phosphorus (2.5-4.5) mg/dL Magnesium (1.6-2.3) mg/dL Total Bilirubin (0.2-1.3) mg/dL AST (17-59) U/L ALT (21-72) U/L Alkaline Phosphatase (38-126) U/L Total Protein (6.3-8.3) g/dL Albumin (3.5-5.0) g/dL Globulin (2.2-3.9) gm/dL Albumin/Globulin Ratio (1.0-2.1) Arterial Blood Potassium 3.6 (3.6-5.2) mmol/L Ur Random Sodium mmol/L 10/28/ Range/Units 11:20 WBC (4.8-10.8) K/uL RBC (4.40-5.90) Mil/uL Hgb (12.0-18.0) g/dL Hct (35.0-51.0) % MCV (80.0-94.0) fL MCH (27.0-31.0) pg MCHC (33.0-37.0) g/dL RDW (11.5-14.5) % Plt Count (130-400) K/uL MPV (7.2-11.7) fL Neut % (Auto) (50.0-75.0) % Lymph % (Auto) (20.0-40.0) % [place] % (Auto) (0.0-10.0) % Eos % (Auto) (0.0-4.0) % Baso % (Auto) (0.0-2.0) % Neut # (Auto) (1.8-7.0) K/uL Lymph # (Auto) (1.0-4.3) K/uL [place] # (Auto) (0.0-0.8) K/uL Eos # (Auto) (0.0-0.7) K/uL Baso # (Auto) (0.0-0.2) K/uL Neutrophils % (Manual) (50-75) % Lymphocytes % (Manual) (20-40) % Monocytes % (Manual) (0-10) % Eosinophils % (Manual) (0-4) % Platelet Estimate (NORMAL) Hypochromasia (manual) Poikilocytosis (manual Anisocytosis (manual) Puncture Site pCO2 (35-45) mm/Hg pO2 (80-100) mm/Hg HCO3 (21-28) mmol/L ABG pH (7.35-7.45) ABG Total CO2 (22-28) mmol/L ABG O2 Saturation (95-98) % ABG Base Excess (-2.0-3.0) mmol/L ABG Hemoglobin (11.7-17.4) g/dL ABG Carboxyhemoglobin (0.5-1.5) % POC ABG HHb (Measured) (0.0-5.0) % ABG Methemoglobin (0.0-3.0) % Andres Test ABG Potassium (3.6-5.2) mmol/L A-a O2 Difference mm/Hg Respiratory Index Hgb O2 Saturation (95.0-98.0) % Sodium (132-148) mmol/l Chloride (98-107) mmol/L Glucose (75-110) mg/dl Lactate (0.7-2.1) mmol/L Vent Mode Mechanical Rate FiO2 % Tidal Volume PEEP Crit Value Called To Crit Value Called By Crit Value Read Back Blood Gas Notified Time Potassium (3.6-5.2) mmol/L Carbon Dioxide (22-30) mmol/L Anion Gap (10-20) BUN (9-20) mg/dL Creatinine (0.8-1.5) mg/dL Est GFR ( Amer) Est GFR (Non-Af Amer) POC Glucose (mg/dL) 136 H (65-110) mg/dL Random Glucose (75-110) mg/dL Calcium (8.6-10.4) mg/dl Phosphorus (2.5-4.5) mg/dL Magnesium (1.6-2.3) mg/dL Total Bilirubin (0.2-1.3) mg/dL AST (17-59) U/L ALT (21-72) U/L Alkaline Phosphatase (38-126) U/L Total Protein (6.3-8.3) g/dL Albumin (3.5-5.0) g/dL Globulin (2.2-3.9) gm/dL Albumin/Globulin Ratio (1.0-2.1) Arterial Blood Potassium (3.6-5.2) mmol/L Ur Random Sodium mmol/L Laboratory Results - last 24 hr 10/28/18 10/28/18 10/28/18 11:20 12:04 17:32 WBC RBC Hgb Hct MCV MCH MCHC RDW Plt Count MPV Neut % (Auto) Lymph % (Auto) [place] % (Auto) Eos % (Auto) Baso % (Auto) Neut # (Auto) Lymph # (Auto) [place] # (Auto) Eos # (Auto) Baso # (Auto) Neutrophils % (Manual) Lymphocytes % (Manual) Monocytes % (Manual) Eosinophils % (Manual) Platelet Estimate Hypochromasia (manual) Poikilocytosis (manual Anisocytosis (manual) Puncture Site Lf pCO2 39 pO2 91 HCO3 24.5 ABG pH 7.40 ABG Total CO2 25.4 ABG O2 Saturation ABG Base Excess -0.5 ABG Hemoglobin ABG Carboxyhemoglobin POC ABG HHb (Measured) ABG Methemoglobin Andres Test Na ABG Potassium 3.6 A-a O2 Difference 217.0 Respiratory Index 2.4 Hgb O2 Saturation Sodium 154.0 H Chloride 123.0 H Glucose 121 H Lactate 0.8 Vent Mode Mechanical Rate 20 FiO2 50.0 Tidal Volume 500 PEEP 5 Crit Value Called To Dr lance Crit Value Called By Sundeep cisneros telephone station installer Crit Value Read Back Y Blood Gas Notified Time 1208 Potassium Carbon Dioxide Anion Gap BUN Creatinine Est GFR ( Amer) Est GFR (Non-Af Amer) POC Glucose (mg/dL) 136 H 123 H Random Glucose Calcium Phosphorus Magnesium Total Bilirubin AST ALT Alkaline Phosphatase Total Protein Albumin Globulin Albumin/Globulin Ratio Arterial Blood Potassium 3.6 Ur Random Sodium 10/28/18 10/29/18 10/29/18 23:46 05:11 05:31 WBC RBC Hgb Hct MCV MCH MCHC RDW Plt Count MPV Neut % (Auto) Lymph % (Auto) [place] % (Auto) Eos % (Auto) Baso % (Auto) Neut # (Auto) Lymph # (Auto) [place] # (Auto) Eos # (Auto) Baso # (Auto) Neutrophils % (Manual) Lymphocytes % (Manual) Monocytes % (Manual) Eosinophils % (Manual) Platelet Estimate Hypochromasia (manual) Poikilocytosis (manual Anisocytosis (manual) Puncture Site Rb pCO2 55 H pO2 86 HCO3 22.6 ABG pH 7.26 L ABG Total CO2 26.4 ABG O2 Saturation 96.2 ABG Base Excess -2.9 L ABG Hemoglobin 11.0 L ABG Carboxyhemoglobin 0.6 POC ABG HHb (Measured) 3.7 ABG Methemoglobin 0.8 Andres Test Na ABG Potassium A-a O2 Difference 202.0 Respiratory Index 2.3 Hgb O2 Saturation 94.9 L Sodium Chloride Glucose Lactate Vent Mode Prvc Mechanical Rate 20 FiO2 50.0 Tidal Volume 500 PEEP 8 Crit Value Called To Crit Value Called By Crit Value Read Back Blood Gas Notified Time Potassium Carbon Dioxide Anion Gap BUN Creatinine Est GFR ( Amer) Est GFR (Non-Af Amer) POC Glucose (mg/dL) 124 H 161 H Random Glucose Calcium Phosphorus Magnesium Total Bilirubin AST ALT Alkaline Phosphatase Total Protein Albumin Globulin Albumin/Globulin Ratio Arterial Blood Potassium Ur Random Sodium 10/29/18 10/29/18 10/29/18 05:51 05:51 06:58 WBC 8.6 RBC 3.50 L Hgb 10.8 L Hct 33.2 L MCV 94.9 H MCH 30.7 MCHC 32.4 L RDW 14.9 H Plt Count 170 MPV 9.7 Neut % (Auto) 79.1 H Lymph % (Auto) 7.8 L [place] % (Auto) 11.9 H Eos % (Auto) 0.9 Baso % (Auto) 0.3 Neut # (Auto) 6.8 Lymph # (Auto) 0.7 L [place] # (Auto) 1.0 H Eos # (Auto) 0.1 Baso # (Auto) 0.0 Neutrophils % (Manual) 85 H Lymphocytes % (Manual) 4 L Monocytes % (Manual) 10 Eosinophils % (Manual) 1 Platelet Estimate Normal Hypochromasia (manual) Slight Poikilocytosis (manual Slight Anisocytosis (manual) Slight Puncture Site pCO2 pO2 HCO3 ABG pH ABG Total CO2 ABG O2 Saturation ABG Base Excess ABG Hemoglobin ABG Carboxyhemoglobin POC ABG HHb (Measured) ABG Methemoglobin Andres Test ABG Potassium A-a O2 Difference Respiratory Index Hgb O2 Saturation Sodium 148 Chloride 118 H Glucose Lactate Vent Mode Mechanical Rate FiO2 Tidal Volume PEEP Crit Value Called To Crit Value Called By Crit Value Read Back Blood Gas Notified Time Potassium 4.9 Carbon Dioxide 23 Anion Gap 13 BUN 82 H Creatinine 2.5 H Est GFR ( Amer) 30 Est GFR (Non-Af Amer) 25 POC Glucose (mg/dL) Random Glucose 179 H Calcium 8.1 L Phosphorus 3.2 Magnesium 2.5 H Total Bilirubin 0.5 AST 31 ALT 27 Alkaline Phosphatase 45 Total Protein 5.6 L Albumin 2.7 L Globulin 2.8 Albumin/Globulin Ratio 1.0 Arterial Blood Potassium Ur Random Sodium 36 18/18 10:18 WBC RBC Hgb Hct MCV MCH MCHC RDW Plt Count MPV Neut % (Auto) Lymph % (Auto) [place] % (Auto) Eos % (Auto) Baso % (Auto) Neut # (Auto) Lymph # (Auto) [place] # (Auto) Eos # (Auto) Baso # (Auto) Neutrophils % (Manual) Lymphocytes % (Manual) Monocytes % (Manual) Eosinophils % (Manual) Platelet Estimate Hypochromasia (manual) Poikilocytosis (manual Anisocytosis (manual) Puncture Site Rba pCO2 44 pO2 104 H HCO3 23.2 ABG pH 7.34 L ABG Total CO2 25.1 ABG O2 Saturation 97.7 ABG Base Excess -2.2 L ABG Hemoglobin ABG Carboxyhemoglobin POC ABG HHb (Measured) ABG Methemoglobin Andres Test Na ABG Potassium 4.3 A-a O2 Difference 198.0 Respiratory Index 1.9 Hgb O2 Saturation Sodium 151.0 H Chloride 122.0 H Glucose 152 H Lactate 0.8 Vent Mode Prvc Mechanical Rate 20 FiO2 50.0 Tidal Volume 550 PEEP 5 Crit Value Called To Crit Value Called By Crit Value Read Back Blood Gas Notified Time Potassium Carbon Dioxide Anion Gap BUN Creatinine Est GFR ( Amer) Est GFR (Non-Af Amer) POC Glucose (mg/dL) Random Glucose Calcium Phosphorus Magnesium Total Bilirubin AST ALT Alkaline Phosphatase Total Protein Albumin Globulin Albumin/Globulin Ratio Arterial Blood Potassium 4.3 Ur Random Sodium Radiology Impressions: Radiology Impressions Chest X-Ray 10/29/18 04:00 IMPRESSION: Limited exam in terms of ruling and/or ruling out presence of a nasogastric tube-this is questioned over the cervical and upper thoracic level of the esophagus. However a distal coursing nasogastric tube is difficult to confirm present insert course. Clinical correlation is essential. If a NG tube is in place then consider repeat exam with greater exposure to visualize its distal course. If no NG tube is inserted than that this is not necessary. Otherwise no acute cardiopulmonary pathology noted. The endotracheal tube is well positioned. Comments: Study marked for PA review . Renal Ultrasound 10/29/18 23:46 IMPRESSION: 1.7 cm echogenic structure at the left lower pole with posterior acoustic shadowing consistent with calcification. CT performed 10/26/18 demonstrates low-attenuation lesion associated with this calcification. Correlate clinically. No hydronephrosis bilaterally. Stewart catheter within the urinary bladder. EKG/Cardiology Studies: Cardiology / EKG Studies 10/28/18 22:05 EKG [ELECTROCARDIOGRAM] Stat Comment: Mode Of Transportation: Reason For Exam: tachycardia Fingerstick Blood Sugar Results: 123 Results Reviewed to Date: Yes Review of Systems - Review of Systems Systems not reviewed;Unavailable: Intubated Critical Care Progress Note - Ventilator Checklist Head of Bed 30 Degrees: Yes Daily Sedation Vacation: Yes Daily Assessment of Readiness to Wean: Yes Daily Spontaneous Breathing Trial: Yes PUD Prophalyxis: Yes DVT Prophylaxis: Yes Oral Care with Chlorhexidine Gluconate {CHG}: Yes - Vent Settings MODE:: PRVC TIDAL VOLUME:: 550 RESP RATE:: 20 FIO2:: 50 PEEP:: 5 - Extremities/Vascular Does the Patient have a Central Venous Catheter?: No Does the Patient need a Central Venous Catheter?: No Does the Patient have a Stewart Catheter?: Yes Does the Patient need a Stewart Catheter?: Yes Catheter Insertion Criteria: Need for accurate measurement of output in critically ill patient ([id number]) - Prophylaxis GI Prophylaxis GI: PPI - Prophylaxis DVT Prophylaxis DVT: Heparin SQ - Nutrition Nutrition: Nutrition Category Date Time Status NPO Diet [DIET] Diets 10/26/18 Dinner Active Assessment/Plan - Assessment and Plan (Free Text) Assessment: 78yo M. PMHx HTN, DM type 2, CAD, HLD, HTN, CAD, CABG, CKD. was being treated medically for suspected rupture appendicitis. Patient started retaining CO2 and went into respiratory failure, requiring intubation early this morning. Neuro: arousable to verbal and tactile stimuli; on fentanyl drip Pulm: acute respiratory failure with hypercapnia, on vent, on PRVC. Etiology: CHF vs pain meds vs EFRAIN/OHS (possible that it is multifactorial); increased RR to 20 to blow off CO2; ABG repeat shows no hypercapnia or acidosis/alkalosis CV: hemodynamically stable. GI: NPO, tube feedings, Glucerna. Fentanly drip Hem: no acute issues Renal: acute on chronic kidney disease. LR @ 75; Renal U/S no acute pathology Endo: DM type 2, ISS q6h. ID: sepsis from appendicitis, improving, continue meropenem and metronidazole. Collection most likely too small for drainage. Appendectomy to be done at a later date once patient is more stable and current critical illness is not primarily secondary to intra-abdominal processes. (6-8 weeks) DVT proph - Heparin 5000 units sc q8h GI proph - protonix stewart for strict I/O's during acute illness <Kojo Hyde S - Last Filed: 10/29/18 18:17> CCU Subjective - Physician Review Critical Care Time Spent (in minutes): 45 CCU Objective - Vital Signs / Intake & Output Vital Signs (Last 4 hours): Vital Signs Temp Pulse BP Pulse Ox 10/29/18 17:00 130 H 157/63 H 99 10/29/18 16:01 103 H 172/78 H 99 10/29/18 16:00 98.4 F 10/29/18 15:00 80 138/63 99 Intake and Output (Last 8hrs): Intake & Output 10/29/18 10/29/18 10/29/18 06:59 14:59 22:59 Intake Total 1482 1161 316 Output Total 650 600 359 Balance 832 561 -43 Weight 284 lb 1.6 oz Intake: IV 370 250 Intake, IV Amount 1112 911 316 Right Forearm 462 286 66 Right Wrist 650 625 250 Output: Drainage 200 Left Nare 200 Urine 450 600 359 Urethral (Stewart) 450 600 359 Other: # Bowel Movements 0 - Medications Active Medications: Active Medications Generic Name Dose Route Start Last Admin Trade Name Freq PRN Reason Stop Dose Admin Enoxaparin Sodium 30 mg 10/27/18 12:15 10/28/18 09:17 Lovenox SC 30 mg DAILY ERIKA Administration Heparin Sodium (Porcine) 5,000 units 10/28/18 14:00 10/29/18 14:30 Heparin SC 5,000 units Q8 ERIKA Administration Metronidazole 500 mg in 100 mls @ 100 mls/hr 10/24/18 19:00 10/29/18 18:06 Flagyl IVPB 100 mls/hr Q8H ERIKA Administration Protocol Meropenem 500 mg/ Sodium 100 mls @ 100 mls/hr 10/27/18 02:00 10/29/18 14:31 Chloride IVPB 100 mls/hr Q12H ERIKA Administration Protocol Lactated Ringer's 1,000 mls @ 75 mls/hr 10/27/18 12:18 10/29/18 16:52 Lactated Ringer's IV 75 mls/hr .[id number] ERIKA Administration Fentanyl Citrate 2,500 mcg/ 250 mls @ 21.8 mls/hr 10/27/18 18:00 10/29/18 16:21 Sodium Chloride IV Not Given .[id number] ERIKA Protocol 2 MCG/KG/HR Insulin Aspart 0 unit 10/27/18 12:30 10/29/18 17:51 Novolog SC Not Given Q6H [facility] Protocol Pantoprazole Sodium 40 mg 10/27/18 10:00 10/29/18 10:06 Protonix Inj IVP 40 mg DAILY ERIKA Administration - Patient Studies Lab Studies: Microbiology Studies 10/23/18 20:00 Blood Culture - Final Blood NO GROWTH AFTER 5 DAYS Gram Stain - Final TEST NOT PERFORMED 10/23/18 20:50 Blood Culture - Final Blood NO GROWTH AFTER 5 DAYS Gram Stain - Final TEST NOT PERFORMED 10/27/18 07:51 MRSA Culture (Admit) - Final Naris MRSA NOT DETECTED Lab Studies 10/29/18 10/29/18 10/29/18 Range/Units 17:36 11:16 10:18 WBC (4.8-10.8) K/uL RBC (4.40-5.90) Mil/uL Hgb (12.0-18.0) g/dL Hct (35.0-51.0) % MCV (80.0-94.0) fL MCH (27.0-31.0) pg MCHC (33.0-37.0) g/dL RDW (11.5-14.5) % Plt Count (130-400) K/uL MPV (7.2-11.7) fL Neut % (Auto) (50.0-75.0) % Lymph % (Auto) (20.0-40.0) % [place] % (Auto) (0.0-10.0) % Eos % (Auto) (0.0-4.0) % Baso % (Auto) (0.0-2.0) % Neut # (Auto) (1.8-7.0) K/uL Lymph # (Auto) (1.0-4.3) K/uL [place] # (Auto) (0.0-0.8) K/uL Eos # (Auto) (0.0-0.7) K/uL Baso # (Auto) (0.0-0.2) K/uL Neutrophils % (Manual) (50-75) % Lymphocytes % (Manual) (20-40) % Monocytes % (Manual) (0-10) % Eosinophils % (Manual) (0-4) % Platelet Estimate (NORMAL) Hypochromasia (manual) Poikilocytosis (manual Anisocytosis (manual) Puncture Site Rba pCO2 44 (35-45) mm/Hg pO2 104 H (80-100) mm/Hg HCO3 23.2 (21-28) mmol/L ABG pH 7.34 L (7.35-7.45) ABG Total CO2 25.1 (22-28) mmol/L ABG O2 Saturation 97.7 (95-98) % ABG Base Excess -2.2 L (-2.0-3.0) mmol/L ABG Hemoglobin (11.7-17.4) g/dL ABG Carboxyhemoglobin (0.5-1.5) % POC ABG HHb (Measured) (0.0-5.0) % ABG Methemoglobin (0.0-3.0) % Andres Test Na ABG Potassium 4.3 (3.6-5.2) mmol/L A-a O2 Difference 198.0 mm/Hg Respiratory Index 1.9 Hgb O2 Saturation (95.0-98.0) % Glucose 152 H (75-110) mg/dl Lactate 0.8 (0.7-2.1) mmol/L Vent Mode Prvc Mechanical Rate 20 FiO2 50.0 % Tidal Volume 550 PEEP 5 Sodium 151.0 H (132-148) mmol/L Potassium (3.6-5.2) mmol/L Chloride 122.0 H (98-107) mmol/L Carbon Dioxide (22-30) mmol/L Anion Gap (10-20) BUN (9-20) mg/dL Creatinine (0.8-1.5) mg/dL Est GFR ( Amer) Est GFR (Non-Af Amer) POC Glucose (mg/dL) 140 H 142 H (65-110) mg/dL Random Glucose (75-110) mg/dL Calcium (8.6-10.4) mg/dl Phosphorus (2.5-4.5) mg/dL Magnesium (1.6-2.3) mg/dL Total Bilirubin (0.2-1.3) mg/dL AST (17-59) U/L ALT (21-72) U/L Alkaline Phosphatase (38-126) U/L Total Protein (6.3-8.3) g/dL Albumin (3.5-5.0) g/dL Globulin (2.2-3.9) gm/dL Albumin/Globulin Ratio (1.0-2.1) Arterial Blood Potassium 4.3 (3.6-5.2) mmol/L Ur Random Sodium mmol/L 10/29/18 10/29/18 10/29/18 Range/Units 06:58 05:51 05:51 WBC 8.6 (4.8-10.8) K/uL RBC 3.50 L (4.40-5.90) Mil/uL Hgb 10.8 L (12.0-18.0) g/dL Hct 33.2 L (35.0-51.0) % MCV 94.9 H (80.0-94.0) fL MCH 30.7 (27.0-31.0) pg MCHC 32.4 L (33.0-37.0) g/dL RDW 14.9 H (11.5-14.5) % Plt Count 170 (130-400) K/uL MPV 9.7 (7.2-11.7) fL Neut % (Auto) 79.1 H (50.0-75.0) % Lymph % (Auto) 7.8 L (20.0-40.0) % [place] % (Auto) 11.9 H (0.0-10.0) % Eos % (Auto) 0.9 (0.0-4.0) % Baso % (Auto) 0.3 (0.0-2.0) % Neut # (Auto) 6.8 (1.8-7.0) K/uL Lymph # (Auto) 0.7 L (1.0-4.3) K/uL [place] # (Auto) 1.0 H (0.0-0.8) K/uL Eos # (Auto) 0.1 (0.0-0.7) K/uL Baso # (Auto) 0.0 (0.0-0.2) K/uL Neutrophils % (Manual) 85 H (50-75) % Lymphocytes % (Manual) 4 L (20-40) % Monocytes % (Manual) 10 (0-10) % Eosinophils % (Manual) 1 (0-4) % Platelet Estimate Normal (NORMAL) Hypochromasia (manual) Slight Poikilocytosis (manual Slight Anisocytosis (manual) Slight Puncture Site pCO2 (35-45) mm/Hg pO2 (80-100) mm/Hg HCO3 (21-28) mmol/L ABG pH (7.35-7.45) ABG Total CO2 (22-28) mmol/L ABG O2 Saturation (95-98) % ABG Base Excess (-2.0-3.0) mmol/L ABG Hemoglobin (11.7-17.4) g/dL ABG Carboxyhemoglobin (0.5-1.5) % POC ABG HHb (Measured) (0.0-5.0) % ABG Methemoglobin (0.0-3.0) % Andres Test ABG Potassium (3.6-5.2) mmol/L A-a O2 Difference mm/Hg Respiratory Index Hgb O2 Saturation (95.0-98.0) % Glucose (75-110) mg/dl Lactate (0.7-2.1) mmol/L Vent Mode Mechanical Rate FiO2 % Tidal Volume PEEP Sodium 148 (132-148) mmol/L Potassium 4.9 (3.6-5.2) mmol/L Chloride 118 H (98-107) mmol/L Carbon Dioxide 23 (22-30) mmol/L Anion Gap 13 (10-20) BUN 82 H (9-20) mg/dL Creatinine 2.5 H (0.8-1.5) mg/dL Est GFR ( Amer) 30 Est GFR (Non-Af Amer) 25 POC Glucose (mg/dL) (65-110) mg/dL Random Glucose 179 H (75-110) mg/dL Calcium 8.1 L (8.6-10.4) mg/dl Phosphorus 3.2 (2.5-4.5) mg/dL Magnesium 2.5 H (1.6-2.3) mg/dL Total Bilirubin 0.5 (0.2-1.3) mg/dL AST 31 (17-59) U/L ALT 27 (21-72) U/L Alkaline Phosphatase 45 (38-126) U/L Total Protein 5.6 L (6.3-8.3) g/dL Albumin 2.7 L (3.5-5.0) g/dL Globulin 2.8 (2.2-3.9) gm/dL Albumin/Globulin Ratio 1.0 (1.0-2.1) Arterial Blood Potassium (3.6-5.2) mmol/L Ur Random Sodium 36 mmol/L 10/29/18 10/29/18 10/28/18 Range/Units 05:31 05:11 23:46 WBC (4.8-10.8) K/uL RBC (4.40-5.90) Mil/uL Hgb (12.0-18.0) g/dL Hct (35.0-51.0) % MCV (80.0-94.0) fL MCH (27.0-31.0) pg MCHC (33.0-37.0) g/dL RDW (11.5-14.5) % Plt Count (130-400) K/uL MPV (7.2-11.7) fL Neut % (Auto) (50.0-75.0) % Lymph % (Auto) (20.0-40.0) % [place] % (Auto) (0.0-10.0) % Eos % (Auto) (0.0-4.0) % Baso % (Auto) (0.0-2.0) % Neut # (Auto) (1.8-7.0) K/uL Lymph # (Auto) (1.0-4.3) K/uL [place] # (Auto) (0.0-0.8) K/uL Eos # (Auto) (0.0-0.7) K/uL Baso # (Auto) (0.0-0.2) K/uL Neutrophils % (Manual) (50-75) % Lymphocytes % (Manual) (20-40) % Monocytes % (Manual) (0-10) % Eosinophils % (Manual) (0-4) % Platelet Estimate (NORMAL) Hypochromasia (manual) Poikilocytosis (manual Anisocytosis (manual) Puncture Site Rb pCO2 55 H (35-45) mm/Hg pO2 86 (80-100) mm/Hg HCO3 22.6 (21-28) mmol/L ABG pH 7.26 L (7.35-7.45) ABG Total CO2 26.4 (22-28) mmol/L ABG O2 Saturation 96.2 (95-98) % ABG Base Excess -2.9 L (-2.0-3.0) mmol/L ABG Hemoglobin 11.0 L (11.7-17.4) g/dL ABG Carboxyhemoglobin 0.6 (0.5-1.5) % POC ABG HHb (Measured) 3.7 (0.0-5.0) % ABG Methemoglobin 0.8 (0.0-3.0) % Andres Test Na ABG Potassium (3.6-5.2) mmol/L A-a O2 Difference 202.0 mm/Hg Respiratory Index 2.3 Hgb O2 Saturation 94.9 L (95.0-98.0) % Glucose (75-110) mg/dl Lactate (0.7-2.1) mmol/L Vent Mode Prvc Mechanical Rate 20 FiO2 50.0 % Tidal Volume 500 PEEP 8 Sodium (132-148) mmol/L Potassium (3.6-5.2) mmol/L Chloride (98-107) mmol/L Carbon Dioxide (22-30) mmol/L Anion Gap (10-20) BUN (9-20) mg/dL Creatinine (0.8-1.5) mg/dL Est GFR ( Amer) Est GFR (Non-Af Amer) POC Glucose (mg/dL) 161 H 124 H (65-110) mg/dL Random Glucose (75-110) mg/dL Calcium (8.6-10.4) mg/dl Phosphorus (2.5-4.5) mg/dL Magnesium (1.6-2.3) mg/dL Total Bilirubin (0.2-1.3) mg/dL AST (17-59) U/L ALT (21-72) U/L Alkaline Phosphatase (38-126) U/L Total Protein (6.3-8.3) g/dL Albumin (3.5-5.0) g/dL Globulin (2.2-3.9) gm/dL Albumin/Globulin Ratio (1.0-2.1) Arterial Blood Potassium (3.6-5.2) mmol/L Ur Random Sodium mmol/L Laboratory Results - last 24 hr 10/28/18 10/29/18 10/29/18 23:46 05:11 05:31 WBC RBC Hgb Hct MCV MCH MCHC RDW Plt Count MPV Neut % (Auto) Lymph % (Auto) [place] % (Auto) Eos % (Auto) Baso % (Auto) Neut # (Auto) Lymph # (Auto) [place] # (Auto) Eos # (Auto) Baso # (Auto) Neutrophils % (Manual) Lymphocytes % (Manual) Monocytes % (Manual) Eosinophils % (Manual) Platelet Estimate Hypochromasia (manual) Poikilocytosis (manual Anisocytosis (manual) Puncture Site Rb pCO2 55 H pO2 86 HCO3 22.6 ABG pH 7.26 L ABG Total CO2 26.4 ABG O2 Saturation 96.2 ABG Base Excess -2.9 L ABG Hemoglobin 11.0 L ABG Carboxyhemoglobin 0.6 POC ABG HHb (Measured) 3.7 ABG Methemoglobin 0.8 Andres Test Na ABG Potassium A-a O2 Difference 202.0 Respiratory Index 2.3 Hgb O2 Saturation 94.9 L Glucose Lactate Vent Mode Prvc Mechanical Rate 20 FiO2 50.0 Tidal Volume 500 PEEP 8 Sodium Potassium Chloride Carbon Dioxide Anion Gap BUN Creatinine Est GFR ( Amer) Est GFR (Non-Af Amer) POC Glucose (mg/dL) 124 H 161 H Random Glucose Calcium Phosphorus Magnesium Total Bilirubin AST ALT Alkaline Phosphatase Total Protein Albumin Globulin Albumin/Globulin Ratio Arterial Blood Potassium Ur Random Sodium 10/29/18 10/29/18 10/29/18 05:51 05:51 06:58 WBC 8.6 RBC 3.50 L Hgb 10.8 L Hct 33.2 L MCV 94.9 H MCH 30.7 MCHC 32.4 L RDW 14.9 H Plt Count 170 MPV 9.7 Neut % (Auto) 79.1 H Lymph % (Auto) 7.8 L [place] % (Auto) 11.9 H Eos % (Auto) 0.9 Baso % (Auto) 0.3 Neut # (Auto) 6.8 Lymph # (Auto) 0.7 L [place] # (Auto) 1.0 H Eos # (Auto) 0.1 Baso # (Auto) 0.0 Neutrophils % (Manual) 85 H Lymphocytes % (Manual) 4 L Monocytes % (Manual) 10 Eosinophils % (Manual) 1 Platelet Estimate Normal Hypochromasia (manual) Slight Poikilocytosis (manual Slight Anisocytosis (manual) Slight Puncture Site pCO2 pO2 HCO3 ABG pH ABG Total CO2 ABG O2 Saturation ABG Base Excess ABG Hemoglobin ABG Carboxyhemoglobin POC ABG HHb (Measured) ABG Methemoglobin Andres Test ABG Potassium A-a O2 Difference Respiratory Index Hgb O2 Saturation Glucose Lactate Vent Mode Mechanical Rate FiO2 Tidal Volume PEEP Sodium 148 Potassium 4.9 Chloride 118 H Carbon Dioxide 23 Anion Gap 13 BUN 82 H Creatinine 2.5 H Est GFR ( Amer) 30 Est GFR (Non-Af Amer) 25 POC Glucose (mg/dL) Random Glucose 179 H Calcium 8.1 L Phosphorus 3.2 Magnesium 2.5 H Total Bilirubin 0.5 AST 31 ALT 27 Alkaline Phosphatase 45 Total Protein 5.6 L Albumin 2.7 L Globulin 2.8 Albumin/Globulin Ratio 1.0 Arterial Blood Potassium Ur Random Sodium 36 10/29/18 10/29/18 10/29/18 10:18 11:16 17:36 WBC RBC Hgb Hct MCV MCH MCHC RDW Plt Count MPV Neut % (Auto) Lymph % (Auto) [place] % (Auto) Eos % (Auto) Baso % (Auto) Neut # (Auto) Lymph # (Auto) [place] # (Auto) Eos # (Auto) Baso # (Auto) Neutrophils % (Manual) Lymphocytes % (Manual) Monocytes % (Manual) Eosinophils % (Manual) Platelet Estimate Hypochromasia (manual) Poikilocytosis (manual Anisocytosis (manual) Puncture Site Rba pCO2 44 pO2 104 H HCO3 23.2 ABG pH 7.34 L ABG Total CO2 25.1 ABG O2 Saturation 97.7 ABG Base Excess -2.2 L ABG Hemoglobin ABG Carboxyhemoglobin POC ABG HHb (Measured) ABG Methemoglobin Andres Test Na ABG Potassium 4.3 A-a O2 Difference 198.0 Respiratory Index 1.9 Hgb O2 Saturation Glucose 152 H Lactate 0.8 Vent Mode Prvc Mechanical Rate 20 FiO2 50.0 Tidal Volume 550 PEEP 5 Sodium 151.0 H Potassium Chloride 122.0 H Carbon Dioxide Anion Gap BUN Creatinine Est GFR ( Amer) Est GFR (Non-Af Amer) POC Glucose (mg/dL) 142 H 140 H Random Glucose Calcium Phosphorus Magnesium Total Bilirubin AST ALT Alkaline Phosphatase Total Protein Albumin Globulin Albumin/Globulin Ratio Arterial Blood Potassium 4.3 Ur Random Sodium Radiology Impressions: Radiology Impressions Chest X-Ray 10/29/18 04:00 IMPRESSION: Limited exam in terms of ruling and/or ruling out presence of a nasogastric tube-this is questioned over the cervical and upper thoracic level of the esophagus. However a distal coursing nasogastric tube is difficult to confirm present insert course. Clinical correlation is essential. If a NG tube is in place then consider repeat exam with greater exposure to visualize its distal course. If no NG tube is inserted than that this is not necessary. Otherwise no acute cardiopulmonary pathology noted. The endotracheal tube is well positioned. Comments: Study marked for PA review . Renal Ultrasound 10/29/18 23:46 IMPRESSION: 1.7 cm echogenic structure at the left lower pole with posterior acoustic shadowing consistent with calcification. CT performed 10/26/18 demonstrates low-attenuation lesion associated with this calcification. Correlate clinically. No hydronephrosis bilaterally. Stewart catheter within the urinary bladder. EKG/Cardiology Studies: Cardiology / EKG Studies 10/28/18 22:05 EKG [ELECTROCARDIOGRAM] Stat Comment: Mode Of Transportation: Reason For Exam: tachycardia Critical Care Progress Note - Nutrition Nutrition: Nutrition Category Date Time Status NPO Diet [DIET] Diets 10/26/18 Dinner Active Attending/Attestation - Attestation I have personally seen and examined this patient.: Yes I have fully participated in the care of the patient.: Yes I have reviewed all pertinent clinical information: Yes Notes (Text): 10/29/18 18:15 patient seen and examined in the intensive care unit. wean off ventilator as tolerated IV antibiotics Follow-up ABG and chest x-ray No surgical intervention as per surgery
--- NOTE | 2018-10-29 14:11 | CP.PCM.PN ---
Subjective - Date & Time of Evaluation Date of Evaluation: 10/29/18 Time of Evaluation: 11:15 - Subjective Subjective: clinically same Objective - Vital Signs/Intake and Output Vital Signs (last 24 hours): Temp Pulse Resp BP Pulse Ox 99.3 F 96 H 20 134/50 L 99 10/29/18 12:00 10/29/18 13:01 10/29/18 04:00 10/29/18 13:01 10/29/18 13:01 Intake and Output: 10/29/18 10/29/18 06:59 18:59 Intake Total 2873 1064 Output Total 1200 525 Balance 1673 539 - Medications Medications: Current Medications Enoxaparin Sodium (Lovenox) 30 mg SC DAILY [facility] Last Admin: 10/28/18 09:17 Dose: 30 mg Heparin Sodium (Porcine) (Heparin) 5,000 units SC Q8 [facility] Last Admin: 10/29/18 05:35 Dose: 5,000 units Metronidazole (Flagyl) 500 mg in 100 mls @ 100 mls/hr IVPB Q8H [facility]; Protocol Last Admin: 10/29/18 10:05 Dose: 100 mls/hr Meropenem 500 mg/ Sodium (Chloride) 100 mls @ 100 mls/hr IVPB Q12H [facility]; Protocol Last Admin: 10/29/18 01:38 Dose: 100 mls/hr Lactated Ringer's (Lactated Ringer's) 1,000 mls @ 75 mls/hr IV .[id number] [facility] Last Admin: 10/29/18 05:04 Dose: Not Given Fentanyl Citrate 2,500 mcg/ (Sodium Chloride) 250 mls @ 21.8 mls/hr IV .[id number] [facility]; Protocol Last Admin: 10/29/18 13:12 Dose: 2 mcg/kg/hr, 21.8 mls/hr Insulin Aspart (Novolog) 0 unit SC Q6H [facility]; Protocol Last Admin: 10/29/18 12:24 Dose: Not Given Pantoprazole Sodium (Protonix Inj) 40 mg IVP DAILY [facility] Last Admin: 10/29/18 10:06 Dose: 40 mg - Labs Labs: 10/29/18 05:51 10/29/18 05:51 PT 15.2 SECONDS (9.7-12.2) H 12/16/18 03:32 INR 1.4 10/27/18 03:32 APTT 66 SECONDS (21-34) H 10/27/18 03:32 - Constitutional Appears: Well - Head Exam Head Exam: ATRAUMATIC, NORMAL INSPECTION, NORMOCEPHALIC - Eye Exam Eye Exam: EOMI, Normal appearance, PERRL Pupil Exam: NORMAL ACCOMODATION, PERRL - ENT Exam ENT Exam: Mucous Membranes Moist, Normal Exam - Neck Exam Neck Exam: Full ROM, Normal Inspection. absent: Lymphadenopathy - Respiratory Exam Respiratory Exam: Decreased Breath Sounds - Cardiovascular Exam Cardiovascular Exam: REGULAR RHYTHM, +S1, +S2 - GI/Abdominal Exam GI & Abdominal Exam: Soft, Diminished Bowel Sounds - Rectal Exam Rectal Exam: Deferred
--- NOTE | 2018-10-29 15:14 | CP.PCM.PN ---
Subjective - Date & Time of Evaluation Date of Evaluation: 10/29/18 Time of Evaluation: 07:20 - Subjective Subjective: Surgery Progress note. Dr. Delacruz service. Pt seen and examined at bedside. Patient intubated and on fentanyl for pain control. Does not respond to commands appropriately. Winces to palpation right lower quadrant. Tmax 101F yesterday afternoon. Objective - Vital Signs/Intake and Output Vital Signs (last 24 hours): Temp Pulse Resp BP Pulse Ox 99.3 F 86 20 127/56 L 96 10/29/18 12:00 10/29/18 14:00 10/29/18 04:00 10/29/18 14:00 10/29/18 14:00 Intake and Output: 10/29/18 10/29/18 06:59 18:59 Intake Total 2873 1161 Output Total 1200 525 Balance 1673 636 - Medications Medications: Current Medications Enoxaparin Sodium (Lovenox) 30 mg SC DAILY [facility] Last Admin: 10/28/18 09:17 Dose: 30 mg Heparin Sodium (Porcine) (Heparin) 5,000 units SC Q8 [facility] Last Admin: 10/29/18 14:30 Dose: 5,000 units Metronidazole (Flagyl) 500 mg in 100 mls @ 100 mls/hr IVPB Q8H [facility]; Protocol Last Admin: 10/29/18 10:05 Dose: 100 mls/hr Meropenem 500 mg/ Sodium (Chloride) 100 mls @ 100 mls/hr IVPB Q12H [facility]; Protocol Last Admin: 10/29/18 14:31 Dose: 100 mls/hr Lactated Ringer's (Lactated Ringer's) 1,000 mls @ 75 mls/hr IV .[id number] [facility] Last Admin: 10/29/18 05:04 Dose: Not Given Fentanyl Citrate 2,500 mcg/ (Sodium Chloride) 250 mls @ 21.8 mls/hr IV .[id number] [facility]; Protocol Last Admin: 10/29/18 13:12 Dose: 2 mcg/kg/hr, 21.8 mls/hr Insulin Aspart (Novolog) 0 unit SC Q6H [facility]; Protocol Last Admin: 10/29/18 12:24 Dose: Not Given Pantoprazole Sodium (Protonix Inj) 40 mg IVP DAILY [facility] Last Admin: 10/29/18 10:06 Dose: 40 mg - Labs Labs: 10/29/18 05:51 10/29/18 05:51 PT 15.2 SECONDS (9.7-12.2) H 10/27/18 03:32 INR 1.4 10/27/18 03:32 APTT 66 SECONDS (21-34) H 10/27/18 03:32 - Constitutional Appears: Older Than Stated Age, Agitated - Head Exam Head Exam: ATRAUMATIC, NORMAL INSPECTION, NORMOCEPHALIC - Eye Exam Eye Exam: EOMI, Normal appearance. absent: Scleral icterus - ENT Exam ENT Exam: Mucous Membranes Moist - Respiratory Exam Additional comments: Intubated - Cardiovascular Exam Cardiovascular Exam: RRR. absent: JVD - GI/Abdominal Exam GI & Abdominal Exam: Soft. absent: Distended, Guarding, Rigid Additional comments: Apparent tenderness right lower quadrant. - Neurological Exam Additional comments: Intubated. Does not respond to questions appropriately. - Skin Skin Exam: Dry, Intact, Normal Color, Warm Assessment and Plan - Assessment and Plan (Free Text) Assessment: 78yo M with ruptured appendicitis. Now in ICU for medical management of hyper capnic respiratory failure, Renal Failure and sepsis. Plan: - Repeat CT with very small collection likely not amenable to percutaneous drainage - Continue IV Abx as per ID team - Medical maximization - No surgery at this time. - wean off vent as able to by the ICU team Further recs as per Dr. Jayme Pinon PGY2 surgery
--- NOTE | 2018-10-29 18:04 | CP.PCM.PN ---
Subjective - Date & Time of Evaluation Date of Evaluation: 10/29/18 Time of Evaluation: 18:04 Objective - Vital Signs/Intake and Output Vital Signs (last 24 hours): Temp Pulse Resp BP Pulse Ox 98.4 F 130 H 20 157/63 H 99 10/29/18 16:00 10/29/18 17:00 10/29/18 04:00 10/29/18 17:00 10/29/18 17:00 Intake and Output: 10/29/18 10/29/18 06:59 18:59 Intake Total 2873 1477 Output Total 1200 959 Balance 1673 518 - Medications Medications: Current Medications Enoxaparin Sodium (Lovenox) 30 mg SC DAILY [facility] Last Admin: 10/28/18 09:17 Dose: 30 mg Heparin Sodium (Porcine) (Heparin) 5,000 units SC Q8 [facility] Last Admin: 10/29/18 14:30 Dose: 5,000 units Metronidazole (Flagyl) 500 mg in 100 mls @ 100 mls/hr IVPB Q8H [facility]; Protocol Last Admin: 10/29/18 10:05 Dose: 100 mls/hr Meropenem 500 mg/ Sodium (Chloride) 100 mls @ 100 mls/hr IVPB Q12H [facility]; Protocol Last Admin: 10/29/18 14:31 Dose: 100 mls/hr Lactated Ringer's (Lactated Ringer's) 1,000 mls @ 75 mls/hr IV .[id number] [facility] Last Admin: 10/29/18 16:52 Dose: 75 mls/hr Fentanyl Citrate 2,500 mcg/ (Sodium Chloride) 250 mls @ 21.8 mls/hr IV .[id number] [facility]; Protocol Last Admin: 10/29/18 16:21 Dose: Not Given Insulin Aspart (Novolog) 0 unit SC Q6H [facility]; Protocol Last Admin: 10/29/18 17:51 Dose: Not Given Pantoprazole Sodium (Protonix Inj) 40 mg IVP DAILY [facility] Last Admin: 10/29/18 10:06 Dose: 40 mg - Labs Labs: 10/29/18 05:51 10/29/18 05:51 PT 15.2 SECONDS (9.7-12.2) H 10/27/18 03:32 INR 1.4 10/27/18 03:32 APTT 66 SECONDS (21-34) H 10/27/18 03:32 Assessment and Plan (1) Abdominal pain Status: Acute (2) Acute appendicitis with rupture Status: Acute (3) CVA (cerebral vascular accident) Status: Acute (4) Diabetes mellitus Status: Chronic (5) RILEY (acute kidney injury) Status: Acute (6) Acute respiratory failure with hypercapnia Status: Acute
--- NOTE | 2018-10-29 19:58 | CARD ---
APPROVED REPORT Date of service: 10/28/2018 EKG Measurement Heart [id number] <Conclusion> Atrial fibrillation rapid V respons Abnormal ECG
[2018-10-29] MEDS: Aritificial Tears (15ml) OU SCH (22:24)
[2018-10-30 01:05] LABS: ABG ALLEN TEST POS; ARTERIAL BLOOD GAS HCO3 21.6 mmol/L (21-28); ARTERIAL BLOOD GAS HEMOGLOBIN 10.3 g/dL (11.7-17.4); ARTERIAL BLOOD GAS PCO2 71 mm/Hg (35-45); ARTERIAL BLOOD GAS PH 7.16 (7.35-7.45); ARTERIAL BLOOD GAS PO2 85 mm/Hg (80-100); ARTERIAL BLOOD GAS TCO2 27.5 mmol/L (22-28)
[2018-10-30] MEDS: Meropenem 500 MG in Sodium Chloride 0.9% 100 ML IVPB SCH ×2 (01:20→15:00)
[2018-10-30] MEDS: metroNIDAZOLE IV 500 mg/100 ml 500 MG/100 ML BAG IVPB SCH ×3 (03:10→18:13)
[2018-10-30] MEDS: (Novolog) Insulin Aspart, Recombinant 100 u/ml 10 ml vial SC SCH ×3 (05:35→18:13)
[2018-10-30 05:38] LABS: ARTERIAL BLOOD GAS HCO3 23.8 mmol/L (21-28); ARTERIAL BLOOD GAS HEMOGLOBIN 11.4 g/dL (11.7-17.4); ARTERIAL BLOOD GAS O2 SAT 96.5 % (95-98); ARTERIAL BLOOD GAS PCO2 57 mm/Hg (35-45); ARTERIAL BLOOD GAS PH 7.27 (7.35-7.45); ARTERIAL BLOOD GAS PO2 85 mm/Hg (80-100); ARTERIAL BLOOD GAS TCO2 27.9 mmol/L (22-28)
[2018-10-30 05:46] LABS: BASO % 0.2 % (0.0-2.0); EOS # 0.1 K/uL (0.0-0.7); EOS % 1.5 % (0.0-4.0); LYMPH # 0.4 K/uL (1.0-4.3); LYMPH % 5.1 % (20.0-40.0); MEAN CELL VOLUME 94.8 fL (80.0-94.0); MEAN CORPUSCULAR HGB CONC 31.6 g/dL (33.0-37.0); MEAN PLATELET VOLUME 9.5 fL (7.2-11.7); MONO # 0.8 K/uL (0.0-0.8); MONO % 10.5 % (0.0-10.0); NEUT # 6.5 K/uL (1.8-7.0); NEUT % 82.7 % (50.0-75.0); PLATELET COUNT 188 K/uL (130-400); RBC 3.67 Mil/uL (4.40-5.90); WHITE BLOOD COUNT 7.9 K/uL (4.8-10.8)
[2018-10-30 06:04] LABS: ALBUMIN 3.1 g/dL (3.5-5.0); CALCIUM 8.7 mg/dl (8.6-10.4)
[2018-10-30] MEDS: Lactated Ringer's 1,000 ML IV SCH (07:12)
[2018-10-30 08:17] LABS: METAMYELOCYTE 1 % (0-0); NEUTROPHIL 81 % (50-75); TOTAL CELLS COUNTED 100
[2018-10-30 08:18] LABS: LYMPHOCYTE 4 % (20-40); MONOCYTE 14 % (0-10); PLATELET ESTIMATE NORMAL (NORMAL)
[2018-10-30 08:20] LABS: ANISOCYTOSIS SLIGHT; HYPOCHROMIC SLIGHT; OVALOCYTES SLIGHT; POIKILOCYTOSIS SLIGHT
[2018-10-30] MEDS: Aritificial Tears (15ml) OU SCH ×2 (09:13→18:13)
--- NOTE | 2018-10-30 10:07 | RAD ---
Date of service: 10/30/2018 HISTORY: intubated COMPARISON: 10/29/2018 FINDINGS: There has been interval extubation LUNGS: The lungs are well inflated and clear. PLEURA: No pleural effusions or pneumothorax. CARDIOVASCULAR: Persistent moderate cardiomegaly. No aortic atherosclerotic calcification present. Status post CABG with OSSEOUS STRUCTURES: Within normal limits for the patient's age. VISUALIZED UPPER ABDOMEN: Normal. OTHER FINDINGS: None. IMPRESSION: Status post extubation. No acute findings.
[2018-10-30 10:15] LABS: ARTERIAL BLOOD GAS HCO3 24.4 mmol/L (21-28); ARTERIAL BLOOD GAS O2 SAT 97.3 % (95-98); ARTERIAL BLOOD GAS PCO2 54 mm/Hg (35-45); ARTERIAL BLOOD GAS PO2 108 mm/Hg (80-100); ARTERIAL BLOOD GAS TCO2 28.3 mmol/L (22-28)
[2018-10-30] MEDS: Sodium Chloride 0.45% 1,000 ML IV SCH ×2 (10:33→22:37)
--- NOTE | 2018-10-30 13:04 | CP.CCUPN ---
<Darshan Saucedojt - Last Filed: 10/30/18 13:21> CCU Subjective - Physician Review Events Since Last Encounter (Free Text): 10/30/18 12:45 Patient self extubated previous evening. Was put on venturi mask but was uncomfortable and switched to BIPAP. No issues after. Subjective (Free Text): Critical Care Progress Note for Dr. Hyde's service Patient seen and examined at bedside. Patient no longer intubated. Patient admits to abdominal pain in RUQ and RLQ. Patient denies fevers, chills, chest pain, sob, n/v, constipation or diarrhea, and dysuria. Critical Care Time Spent (in minutes): 35 CCU Objective - Vital Signs / Intake & Output Vital Signs (Last 4 hours): Vital Signs Temp Pulse Resp BP Pulse Ox 10/30/18 12:00 98.1 F 80 21 176/68 H 98 10/30/18 11:09 86 10/30/18 11:00 82 17 160/80 H 98 10/30/18 10:00 86 16 158/75 H 98 10/30/18 09:00 90 15 157/80 H 99 Intake and Output (Last 8hrs): Intake & Output 10/29/18 10/30/18 10/30/18 22:59 06:59 14:59 Intake Total 826 945 475 Output Total 1111 1350 595 Balance -285 -405 -120 Weight 284 lb Intake: IV 251 Intake, IV Amount 826 694 475 Right Forearm 176 44 Right Wrist 650 650 475 Output: Gastric Amount 150 50 Nares 150 50 Urine 961 1300 595 Urethral (Stewart) 961 1300 595 - Physical Exam Head: Positive for: Atraumatic, Normocephalic Pupils: Positive for: PERRL Extroacular Muscles: Positive for: EOMI Conjunctiva: Positive for: Normal Ears: Positive for: Normal Mouth: Positive for: Moist Mucous Membranes Nose (External): Positive for: Atraumatic Cardiovascular: Positive for: Regular Rate and Rhythm, Normal S1, S2 Abdomen: Positive for: Tenderness, Distention, Normal Bowel Sounds. Negative for: Peritoneal Signs, Rebound, Guarding Upper Extremity: Positive for: Normal Inspection. Negative for: Cyanosis, Edema Lower Extremity: Positive for: Normal Inspection. Negative for: Edema Neurological: Positive for: Speech Normal Skin: Positive for: Warm, Normal Color Psychiatric: Positive for: Alert, Oriented x 3 Other physical findings (Free Text): on BIPAP - Medications Active Medications: Active Medications Generic Name Dose Route Start Last Admin Trade Name Traceq PRN Reason Stop Dose Admin Artificial Tears 0 ml 10/29/18 22:00 10/30/18 09:13 Artificial Tears OU 1 drop BID ERIKA Administration Heparin Sodium (Porcine) 5,000 units 10/28/18 14:00 10/30/18 05:22 Heparin SC 5,000 units Q8 ERIKA Administration Metronidazole 500 mg in 100 mls @ 100 mls/hr 10/24/18 19:00 10/30/18 10:42 Flagyl IVPB 100 mls/hr Q8H ERIKA Administration Protocol Meropenem 500 mg/ Sodium 100 mls @ 100 mls/hr 10/27/18 02:00 10/30/18 01:20 Chloride IVPB 100 mls/hr Q12H ERIKA Administration Protocol Fentanyl Citrate 2,500 mcg/ 250 mls @ 21.8 mls/hr 10/27/18 18:00 10/30/18 04:15 Sodium Chloride IV Not Given .[id number] ERIKA Protocol 2 MCG/KG/HR Sodium Chloride 1,000 mls @ 75 mls/hr 10/30/18 09:45 10/30/18 10:33 Sodium Chloride 0.45% IV 75 mls/hr .[id number] ERIKA Administration Insulin Aspart 0 unit 10/27/18 12:30 10/30/18 12:06 Novolog SC Not Given Q6H ERIKA Protocol Pantoprazole Sodium 40 mg 10/27/18 10:00 10/30/18 09:12 Protonix Inj IVP 40 mg DAILY ERIKA Administration - Patient Studies Lab Studies: Lab Studies 10/30/18 10/30/18 10/30/18 Range/Units 10:11 05:37 05:35 WBC 7.9 (4.8-10.8) K/uL RBC 3.67 L (4.40-5.90) Mil/uL Hgb 11.0 L (12.0-18.0) g/dL Hct 34.8 L (35.0-51.0) % MCV 94.8 H (80.0-94.0) fL MCH 30.0 (27.0-31.0) pg MCHC 31.6 L (33.0-37.0) g/dL RDW 15.0 H (11.5-14.5) % Plt Count 188 (130-400) K/uL MPV 9.5 (7.2-11.7) fL Neut % (Auto) 82.7 H (50.0-75.0) % Lymph % (Auto) 5.1 L (20.0-40.0) % [place] % (Auto) 10.5 H (0.0-10.0) % Eos % (Auto) 1.5 (0.0-4.0) % Baso % (Auto) 0.2 (0.0-2.0) % Neut # (Auto) 6.5 (1.8-7.0) K/uL Lymph # (Auto) 0.4 L (1.0-4.3) K/uL [place] # (Auto) 0.8 (0.0-0.8) K/uL Eos # (Auto) 0.1 (0.0-0.7) K/uL Baso # (Auto) 0.0 (0.0-0.2) K/uL Neutrophils % (Manual) 81 H (50-75) % Lymphocytes % (Manual) 4 L (20-40) % Monocytes % (Manual) 14 H (0-10) % Metamyelocytes % 1 H (0-0) % Platelet Estimate Normal (NORMAL) Hypochromasia (manual) Slight Poikilocytosis (manual Slight Anisocytosis (manual) Slight Ovalocytes Slight Puncture Site Rba pCO2 54 H (35-45) mm/Hg pO2 108 H (80-100) mm/Hg HCO3 24.4 (21-28) mmol/L ABG pH 7.30 L (7.35-7.45) ABG Total CO2 28.3 H (22-28) mmol/L ABG O2 Saturation 97.3 (95-98) % ABG Base Excess -0.7 (-2.0-3.0) mmol/L ABG Hemoglobin (11.7-17.4) g/dL ABG Carboxyhemoglobin (0.5-1.5) % POC ABG HHb (Measured) (0.0-5.0) % ABG Methemoglobin (0.0-3.0) % Andres Test Na ABG Potassium 4.5 (3.6-5.2) mmol/L A-a O2 Difference 181.0 mm/Hg Respiratory Index 1.7 Hgb O2 Saturation (95.0-98.0) % Glucose 176 H (75-110) mg/dl Lactate 0.7 (0.7-2.1) mmol/L Vent Mode Bipap FiO2 50.0 % Inspiratory BiPAP 20 Expiratory BiPAP 10 Crit Value Called To Crit Value Called By Crit Value Read Back Blood Gas Notified Time Sodium 155.0 H 151 H (132-148) mmol/L Potassium 4.6 (3.6-5.2) mmol/L Chloride 124.0 H 118 H (98-107) mmol/L Carbon Dioxide 25 (22-30) mmol/L Anion Gap 13 (10-20) BUN 63 H (9-20) mg/dL Creatinine 1.9 H (0.8-1.5) mg/dL Est GFR ( Amer) 42 Est GFR (Non-Af Amer) 35 POC Glucose (mg/dL) (65-110) mg/dL Random Glucose 181 H (75-110) mg/dL Calcium 8.7 (8.6-10.4) mg/dl Phosphorus 3.7 (2.5-4.5) mg/dL Magnesium 2.4 H (1.6-2.3) mg/dL Total Bilirubin 0.5 (0.2-1.3) mg/dL AST 35 (17-59) U/L ALT 23 (21-72) U/L Alkaline Phosphatase 55 (38-126) U/L Total Protein 6.2 L (6.3-8.3) g/dL Albumin 3.1 L (3.5-5.0) g/dL Globulin 3.1 (2.2-3.9) gm/dL Albumin/Globulin Ratio 1.0 (1.0-2.1) Arterial Blood Potassium 4.5 (3.6-5.2) mmol/L 10/30/18 10/30/18 10/30/18 Range/Units 05:15 05:12 00:57 WBC (4.8-10.8) K/uL RBC (4.40-5.90) Mil/uL Hgb (12.0-18.0) g/dL Hct (35.0-51.0) % MCV (80.0-94.0) fL MCH (27.0-31.0) pg MCHC (33.0-37.0) g/dL RDW (11.5-14.5) % Plt Count (130-400) K/uL MPV (7.2-11.7) fL Neut % (Auto) (50.0-75.0) % Lymph % (Auto) (20.0-40.0) % [place] % (Auto) (0.0-10.0) % Eos % (Auto) (0.0-4.0) % Baso % (Auto) (0.0-2.0) % Neut # (Auto) (1.8-7.0) K/uL Lymph # (Auto) (1.0-4.3) K/uL [place] # (Auto) (0.0-0.8) K/uL Eos # (Auto) (0.0-0.7) K/uL Baso # (Auto) (0.0-0.2) K/uL Neutrophils % (Manual) (50-75) % Lymphocytes % (Manual) (20-40) % Monocytes % (Manual) (0-10) % Metamyelocytes % (0-0) % Platelet Estimate (NORMAL) Hypochromasia (manual) Poikilocytosis (manual Anisocytosis (manual) Ovalocytes Puncture Site Rb Rr pCO2 57 H 71 H* (35-45) mm/Hg pO2 85 85 (80-100) mm/Hg HCO3 23.8 21.6 (21-28) mmol/L ABG pH 7.27 L 7.16 L* (7.35-7.45) ABG Total CO2 27.9 27.5 (22-28) mmol/L ABG O2 Saturation 96.5 96.0 (95-98) % ABG Base Excess -1.4 -4.2 L (-2.0-3.0) mmol/L ABG Hemoglobin 11.4 L 10.3 L (11.7-17.4) g/dL ABG Carboxyhemoglobin 0.8 0.9 (0.5-1.5) % POC ABG HHb (Measured) 3.4 3.9 (0.0-5.0) % ABG Methemoglobin 0.8 0.5 (0.0-3.0) % Andres Test Na Pos ABG Potassium (3.6-5.2) mmol/L A-a O2 Difference 200.0 183.0 mm/Hg Respiratory Index 2.4 2.2 Hgb O2 Saturation 94.9 L 94.8 L (95.0-98.0) % Glucose (75-110) mg/dl Lactate (0.7-2.1) mmol/L Vent Mode Bipap Bipap FiO2 50.0 50.0 % Inspiratory BiPAP 20 14 Expiratory BiPAP 10 6 Crit Value Called To Dr. 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 Crit Value Read Back Y Blood Gas Notified Time 104 Sodium (132-148) mmol/L Potassium (3.6-5.2) mmol/L Chloride (98-107) mmol/L Carbon Dioxide (22-30) mmol/L Anion Gap (10-20) BUN (9-20) mg/dL Creatinine (0.8-1.5) mg/dL Est GFR ( Amer) Est GFR (Non-Af Amer) POC Glucose (mg/dL) 159 H (65-110) mg/dL Random Glucose (75-110) mg/dL Calcium (8.6-10.4) mg/dl Phosphorus (2.5-4.5) mg/dL Magnesium (1.6-2.3) mg/dL Total Bilirubin (0.2-1.3) mg/dL AST (17-59) U/L ALT (21-72) U/L Alkaline Phosphatase (38-126) U/L Total Protein (6.3-8.3) g/dL Albumin (3.5-5.0) g/dL Globulin (2.2-3.9) gm/dL Albumin/Globulin Ratio (1.0-2.1) Arterial Blood Potassium (3.6-5.2) mmol/L 10/29/18 10/29/18 10/29/18 Range/Units 23:48 17:36 11:16 WBC (4.8-10.8) K/uL RBC (4.40-5.90) Mil/uL Hgb (12.0-18.0) g/dL Hct (35.0-51.0) % MCV (80.0-94.0) fL MCH (27.0-31.0) pg MCHC (33.0-37.0) g/dL RDW (11.5-14.5) % Plt Count (130-400) K/uL MPV (7.2-11.7) fL Neut % (Auto) (50.0-75.0) % Lymph % (Auto) (20.0-40.0) % [place] % (Auto) (0.0-10.0) % Eos % (Auto) (0.0-4.0) % Baso % (Auto) (0.0-2.0) % Neut # (Auto) (1.8-7.0) K/uL Lymph # (Auto) (1.0-4.3) K/uL [place] # (Auto) (0.0-0.8) K/uL Eos # (Auto) (0.0-0.7) K/uL Baso # (Auto) (0.0-0.2) K/uL Neutrophils % (Manual) (50-75) % Lymphocytes % (Manual) (20-40) % Monocytes % (Manual) (0-10) % Metamyelocytes % (0-0) % Platelet Estimate (NORMAL) Hypochromasia (manual) Poikilocytosis (manual Anisocytosis (manual) Ovalocytes Puncture Site pCO2 (35-45) mm/Hg pO2 (80-100) mm/Hg HCO3 (21-28) mmol/L ABG pH (7.35-7.45) ABG Total CO2 (22-28) mmol/L ABG O2 Saturation (95-98) % ABG Base Excess (-2.0-3.0) mmol/L ABG Hemoglobin (11.7-17.4) g/dL ABG Carboxyhemoglobin (0.5-1.5) % POC ABG HHb (Measured) (0.0-5.0) % ABG Methemoglobin (0.0-3.0) % Andres Test ABG Potassium (3.6-5.2) mmol/L A-a O2 Difference mm/Hg Respiratory Index Hgb O2 Saturation (95.0-98.0) % Glucose (75-110) mg/dl Lactate (0.7-2.1) mmol/L Vent Mode FiO2 % Inspiratory BiPAP Expiratory BiPAP Crit Value Called To Crit Value Called By Crit Value Read Back Blood Gas Notified Time Sodium (132-148) mmol/L Potassium (3.6-5.2) mmol/L Chloride (98-107) mmol/L Carbon Dioxide (22-30) mmol/L Anion Gap (10-20) BUN (9-20) mg/dL Creatinine (0.8-1.5) mg/dL Est GFR ( Amer) Est GFR (Non-Af Amer) POC Glucose (mg/dL) 216 H 140 H 142 H (65-110) mg/dL Random Glucose (75-110) mg/dL Calcium (8.6-10.4) mg/dl Phosphorus (2.5-4.5) mg/dL Magnesium (1.6-2.3) mg/dL Total Bilirubin (0.2-1.3) mg/dL AST (17-59) U/L ALT (21-72) U/L Alkaline Phosphatase (38-126) U/L Total Protein (6.3-8.3) g/dL Albumin (3.5-5.0) g/dL Globulin (2.2-3.9) gm/dL Albumin/Globulin Ratio (1.0-2.1) Arterial Blood Potassium (3.6-5.2) mmol/L Laboratory Results - last 24 hr 10/29/18 10/29/18 10/29/18 11:16 17:36 23:48 WBC RBC Hgb Hct MCV MCH MCHC RDW Plt Count MPV Neut % (Auto) Lymph % (Auto) [place] % (Auto) Eos % (Auto) Baso % (Auto) Neut # (Auto) Lymph # (Auto) [place] # (Auto) Eos # (Auto) Baso # (Auto) Neutrophils % (Manual) Lymphocytes % (Manual) Monocytes % (Manual) Metamyelocytes % Platelet Estimate Hypochromasia (manual) Poikilocytosis (manual Anisocytosis (manual) Ovalocytes Puncture Site pCO2 pO2 HCO3 ABG pH ABG Total CO2 ABG O2 Saturation ABG Base Excess ABG Hemoglobin ABG Carboxyhemoglobin POC ABG HHb (Measured) ABG Methemoglobin Andres Test ABG Potassium A-a O2 Difference Respiratory Index Hgb O2 Saturation Glucose Lactate Vent Mode FiO2 Inspiratory BiPAP Expiratory BiPAP Crit Value Called To Crit Value Called By Crit Value Read Back Blood Gas Notified Time Sodium Potassium Chloride Carbon Dioxide Anion Gap BUN Creatinine Est GFR ( Amer) Est GFR (Non-Af Amer) POC Glucose (mg/dL) 142 H 140 H 216 H Random Glucose Calcium Phosphorus Magnesium Total Bilirubin AST ALT Alkaline Phosphatase Total Protein Albumin Globulin Albumin/Globulin Ratio Arterial Blood Potassium 10/30/18 10/30/18 10/30/18 00:57 05:12 05:15 WBC RBC Hgb Hct MCV MCH MCHC RDW Plt Count MPV Neut % (Auto) Lymph % (Auto) [place] % (Auto) Eos % (Auto) Baso % (Auto) Neut # (Auto) Lymph # (Auto) [place] # (Auto) Eos # (Auto) Baso # (Auto) Neutrophils % (Manual) Lymphocytes % (Manual) Monocytes % (Manual) Metamyelocytes % Platelet Estimate Hypochromasia (manual) Poikilocytosis (manual Anisocytosis (manual) Ovalocytes Puncture Site Rr Rb pCO2 71 H* 57 H pO2 85 85 HCO3 21.6 23.8 ABG pH 7.16 L* 7.27 L ABG Total CO2 27.5 27.9 ABG O2 Saturation 96.0 96.5 ABG Base Excess -4.2 L -1.4 ABG Hemoglobin 10.3 L 11.4 L ABG Carboxyhemoglobin 0.9 0.8 POC ABG HHb (Measured) 3.9 3.4 ABG Methemoglobin 0.5 0.8 Andres Test Pos Na ABG Potassium A-a O2 Difference 183.0 200.0 Respiratory Index 2.2 2.4 Hgb O2 Saturation 94.8 L 94.9 L Glucose Lactate Vent Mode Bipap Bipap FiO2 50.0 50.0 Inspiratory BiPAP 14 20 Expiratory BiPAP 6 10 Crit Value Called To Dr. 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 Crit Value Read Back Y Blood Gas Notified Time 104 Sodium Potassium Chloride Carbon Dioxide Anion Gap BUN Creatinine Est GFR ( Amer) Est GFR (Non-Af Amer) POC Glucose (mg/dL) 159 H Random Glucose Calcium Phosphorus Magnesium Total Bilirubin AST ALT Alkaline Phosphatase Total Protein Albumin Globulin Albumin/Globulin Ratio Arterial Blood Potassium 10/30/18 10/30/18 10/30/18 05:35 05:37 10:11 WBC 7.9 RBC 3.67 L Hgb 11.0 L Hct 34.8 L MCV 94.8 H MCH 30.0 MCHC 31.6 L RDW 15.0 H Plt Count 188 MPV 9.5 Neut % (Auto) 82.7 H Lymph % (Auto) 5.1 L [place] % (Auto) 10.5 H Eos % (Auto) 1.5 Baso % (Auto) 0.2 Neut # (Auto) 6.5 Lymph # (Auto) 0.4 L [place] # (Auto) 0.8 Eos # (Auto) 0.1 Baso # (Auto) 0.0 Neutrophils % (Manual) 81 H Lymphocytes % (Manual) 4 L Monocytes % (Manual) 14 H Metamyelocytes % 1 H Platelet Estimate Normal Hypochromasia (manual) Slight Poikilocytosis (manual Slight Anisocytosis (manual) Slight Ovalocytes Slight Puncture Site Rba pCO2 54 H pO2 108 H HCO3 24.4 ABG pH 7.30 L ABG Total CO2 28.3 H ABG O2 Saturation 97.3 ABG Base Excess -0.7 ABG Hemoglobin ABG Carboxyhemoglobin POC ABG HHb (Measured) ABG Methemoglobin Andres Test Na ABG Potassium 4.5 A-a O2 Difference 181.0 Respiratory Index 1.7 Hgb O2 Saturation Glucose 176 H Lactate 0.7 Vent Mode Bipap FiO2 50.0 Inspiratory BiPAP 20 Expiratory BiPAP 10 Crit Value Called To Crit Value Called By Crit Value Read Back Blood Gas Notified Time Sodium 151 H 155.0 H Potassium 4.6 Chloride 118 H 124.0 H Carbon Dioxide 25 Anion Gap 13 BUN 63 H Creatinine 1.9 H Est GFR ( Amer) 42 Est GFR (Non-Af Amer) 35 POC Glucose (mg/dL) Random Glucose 181 H Calcium 8.7 Phosphorus 3.7 Magnesium 2.4 H Total Bilirubin 0.5 AST 35 ALT 23 Alkaline Phosphatase 55 Total Protein 6.2 L Albumin 3.1 L Globulin 3.1 Albumin/Globulin Ratio 1.0 Arterial Blood Potassium 4.5 Radiology Impressions: Radiology Impressions Chest X-Ray 10/30/18 07:00 IMPRESSION: Status post extubation. No acute findings. Fingerstick Blood Sugar Results: 155 Results Reviewed to Date: Yes Review of Systems - Constitutional Constitutional: absent: Fever, Chills, Sweats - EENT Eyes: absent: Blurred Vision, Change in Vision - Cardiovascular Cardiovascular: Dyspnea. absent: Chest Pain, Chest Pain at Rest - Respiratory Respiratory: Dyspnea. absent: Cough, Hemoptysis - Gastrointestinal Gastrointestinal: Abdominal Pain. absent: Belching, Bloating, Change in Bowel Habits, Diarrhea, Vomiting - Genitourinary Genitourinary: absent: Difficulty Urinating, Dysuria - Neurological Neurological: absent: Dizziness, Headaches Critical Care Progress Note - Extremities/Vascular Does the Patient have a Stewart Catheter?: Yes Does the Patient need a Stewart Catheter?: Yes Catheter Insertion Criteria: Need for accurate measurement of output in critically ill patient - Prophylaxis GI Prophylaxis GI: PPI - Prophylaxis DVT Prophylaxis DVT: Heparin SQ - Nutrition Nutrition: Nutrition Category Date Time Status NPO Diet [DIET] Diets 10/26/18 Dinner Active Assessment/Plan - Assessment and Plan (Free Text) Assessment: 78yo M. PMHx HTN, DM type 2, CAD, HLD, HTN, CAD, CABG, CKD. was being treated medically for suspected rupture appendicitis. Patient started retaining CO2 and went into respiratory failure, requiring intubation. Neuro: verbal, awake, alert; fentanyl drip on hold Pulm: acute respiratory failure with hypercapnia s/p on vent; On bipap with most recent ABG showing mild respiratory acidosis improved from prior; Chest xray- shows no acute findings CV: hemodynamically stable. GI: NPO, tube feedings, Glucerna. Fentanly drip- on hold Hem: no acute issues Renal: acute on chronic kidney disease; Cr trending down; LR @ 75 - Dc'ed due to hypernatremia; 1/2 NS @ 75mls/hr Endo: DM type 2, ISS q6h. ID: sepsis from appendicitis, improving, continue meropenem and metronidazole. Further appendicitis management as per Surgery DVT proph - Heparin 5000 units sc q8h GI proph - protonix stewart for strict I/O's during acute illness <Kojo Hyde - Last Filed: 10/30/18 17:48> CCU Objective - Vital Signs / Intake & Output Vital Signs (Last 4 hours): Vital Signs Pulse Resp BP Pulse Ox 10/30/18 15:01 94 H 24 166/76 H 94 L 12/19/18 14:00 83 20 178/70 H 100 Intake and Output (Last 8hrs): Intake & Output 10/30/18 10/30/18 10/30/18 06:59 14:59 22:59 Intake Total 945 625 100 Output Total 1350 985 120 Balance -405 -360 -20 Weight 284 lb Intake: IV 251 Intake, IV Amount 694 625 100 Right Forearm 44 Right Wrist 650 625 100 Output: Gastric Amount 50 Nares 50 Urine 1300 985 120 Urethral (Stewart) 1300 985 120 - Medications Active Medications: Active Medications Generic Name Dose Route Start Last Admin Trade Name Freq PRN Reason Stop Dose Admin Artificial Tears 0 ml 10/29/18 22:00 10/30/18 09:13 Artificial Tears OU 1 drop BID ERIKA Administration Heparin Sodium (Porcine) 5,000 units 10/28/18 14:00 10/30/18 15:01 Heparin SC 5,000 units Q8 ERIKA Administration Metronidazole 500 mg in 100 mls @ 100 mls/hr 10/24/18 19:00 10/30/18 10:42 Flagyl IVPB 100 mls/hr Q8H ERIKA Administration Protocol Meropenem 500 mg/ Sodium 100 mls @ 100 mls/hr 10/27/18 02:00 10/30/18 15:00 Chloride IVPB 100 mls/hr Q12H ERIKA Administration Protocol Fentanyl Citrate 2,500 mcg/ 250 mls @ 21.8 mls/hr 10/27/18 18:00 10/30/18 04:15 Sodium Chloride IV Not Given .[id number] ERIKA Protocol 2 MCG/KG/HR Sodium Chloride 1,000 mls @ 75 mls/hr 10/30/18 09:45 10/30/18 10:33 Sodium Chloride 0.45% IV 75 mls/hr .[id number] ERIKA Administration Insulin Aspart 0 unit 10/27/18 12:30 10/30/18 12:06 Novolog SC Not Given Q6H ERIKA Protocol Pantoprazole Sodium 40 mg 10/27/18 10:00 10/30/18 09:12 Protonix Inj IVP 40 mg DAILY ERIKA Administration - Patient Studies Lab Studies: Lab Studies 10/30/18 10/30/18 10/30/18 Range/Units 17:04 11:17 10:11 WBC (4.8-10.8) K/uL RBC (4.40-5.90) Mil/uL Hgb (12.0-18.0) g/dL Hct (35.0-51.0) % MCV (80.0-94.0) fL MCH (27.0-31.0) pg MCHC (33.0-37.0) g/dL RDW (11.5-14.5) % Plt Count (130-400) K/uL MPV (7.2-11.7) fL Neut % (Auto) (50.0-75.0) % Lymph % (Auto) (20.0-40.0) % [place] % (Auto) (0.0-10.0) % Eos % (Auto) (0.0-4.0) % Baso % (Auto) (0.0-2.0) % Neut # (Auto) (1.8-7.0) K/uL Lymph # (Auto) (1.0-4.3) K/uL [place] # (Auto) (0.0-0.8) K/uL Eos # (Auto) (0.0-0.7) K/uL Baso # (Auto) (0.0-0.2) K/uL Neutrophils % (Manual) (50-75) % Lymphocytes % (Manual) (20-40) % Monocytes % (Manual) (0-10) % Metamyelocytes % (0-0) % Platelet Estimate (NORMAL) Hypochromasia (manual) Poikilocytosis (manual Anisocytosis (manual) Ovalocytes Puncture Site Rba pCO2 54 H (35-45) mm/Hg pO2 108 H (80-100) mm/Hg HCO3 24.4 (21-28) mmol/L ABG pH 7.30 L (7.35-7.45) ABG Total CO2 28.3 H (22-28) mmol/L ABG O2 Saturation 97.3 (95-98) % ABG Base Excess -0.7 (-2.0-3.0) mmol/L ABG Hemoglobin (11.7-17.4) g/dL ABG Carboxyhemoglobin (0.5-1.5) % POC ABG HHb (Measured) (0.0-5.0) % ABG Methemoglobin (0.0-3.0) % Andres Test Na ABG Potassium 4.5 (3.6-5.2) mmol/L A-a O2 Difference 181.0 mm/Hg Respiratory Index 1.7 Hgb O2 Saturation (95.0-98.0) % Glucose 176 H (75-110) mg/dl Lactate 0.7 (0.7-2.1) mmol/L Vent Mode Bipap FiO2 50.0 % Inspiratory BiPAP 20 Expiratory BiPAP 10 Crit Value Called To Crit Value Called By Crit Value Read Back Blood Gas Notified Time Sodium 155.0 H (132-148) mmol/L Potassium (3.6-5.2) mmol/L Chloride 124.0 H (98-107) mmol/L Carbon Dioxide (22-30) mmol/L Anion Gap (10-20) BUN (9-20) mg/dL Creatinine (0.8-1.5) mg/dL Est GFR ( Amer) Est GFR (Non-Af Amer) POC Glucose (mg/dL) 169 H 155 H (65-110) mg/dL Random Glucose (75-110) mg/dL Calcium (8.6-10.4) mg/dl Phosphorus (2.5-4.5) mg/dL Magnesium (1.6-2.3) mg/dL Total Bilirubin (0.2-1.3) mg/dL AST (17-59) U/L ALT (21-72) U/L Alkaline Phosphatase (38-126) U/L Total Protein (6.3-8.3) g/dL Albumin (3.5-5.0) g/dL Globulin (2.2-3.9) gm/dL Albumin/Globulin Ratio (1.0-2.1) Arterial Blood Potassium 4.5 (3.6-5.2) mmol/L 10/30/18 10/30/18 10/30/18 Range/Units 05:37 05:35 05:15 WBC 7.9 (4.8-10.8) K/uL RBC 3.67 L (4.40-5.90) Mil/uL Hgb 11.0 L (12.0-18.0) g/dL Hct 34.8 L (35.0-51.0) % MCV 94.8 H (80.0-94.0) fL MCH 30.0 (27.0-31.0) pg MCHC 31.6 L (33.0-37.0) g/dL RDW 15.0 H (11.5-14.5) % Plt Count 188 (130-400) K/uL MPV 9.5 (7.2-11.7) fL Neut % (Auto) 82.7 H (50.0-75.0) % Lymph % (Auto) 5.1 L (20.0-40.0) % [place] % (Auto) 10.5 H (0.0-10.0) % Eos % (Auto) 1.5 (0.0-4.0) % Baso % (Auto) 0.2 (0.0-2.0) % Neut # (Auto) 6.5 (1.8-7.0) K/uL Lymph # (Auto) 0.4 L (1.0-4.3) K/uL [place] # (Auto) 0.8 (0.0-0.8) K/uL Eos # (Auto) 0.1 (0.0-0.7) K/uL Baso # (Auto) 0.0 (0.0-0.2) K/uL Neutrophils % (Manual) 81 H (50-75) % Lymphocytes % (Manual) 4 L (20-40) % Monocytes % (Manual) 14 H (0-10) % Metamyelocytes % 1 H (0-0) % Platelet Estimate Normal (NORMAL) Hypochromasia (manual) Slight Poikilocytosis (manual Slight Anisocytosis (manual) Slight Ovalocytes Slight Puncture Site Rb pCO2 57 H (35-45) mm/Hg pO2 85 (80-100) mm/Hg HCO3 23.8 (21-28) mmol/L ABG pH 7.27 L (7.35-7.45) ABG Total CO2 27.9 (22-28) mmol/L ABG O2 Saturation 96.5 (95-98) % ABG Base Excess -1.4 (-2.0-3.0) mmol/L ABG Hemoglobin 11.4 L (11.7-17.4) g/dL ABG Carboxyhemoglobin 0.8 (0.5-1.5) % POC ABG HHb (Measured) 3.4 (0.0-5.0) % ABG Methemoglobin 0.8 (0.0-3.0) % Andres Test Na ABG Potassium (3.6-5.2) mmol/L A-a O2 Difference 200.0 mm/Hg Respiratory Index 2.4 Hgb O2 Saturation 94.9 L (95.0-98.0) % Glucose (75-110) mg/dl Lactate (0.7-2.1) mmol/L Vent Mode Bipap FiO2 50.0 % Inspiratory BiPAP 20 Expiratory BiPAP 10 Crit Value Called To Crit Value Called By Crit Value Read Back Blood Gas Notified Time Sodium 151 H (132-148) mmol/L Potassium 4.6 (3.6-5.2) mmol/L Chloride 118 H (98-107) mmol/L Carbon Dioxide 25 (22-30) mmol/L Anion Gap 13 (10-20) BUN 63 H (9-20) mg/dL Creatinine 1.9 H (0.8-1.5) mg/dL Est GFR ( Amer) 42 Est GFR (Non-Af Amer) 35 POC Glucose (mg/dL) (65-110) mg/dL Random Glucose 181 H (75-110) mg/dL Calcium 8.7 (8.6-10.4) mg/dl Phosphorus 3.7 (2.5-4.5) mg/dL Magnesium 2.4 H (1.6-2.3) mg/dL Total Bilirubin 0.5 (0.2-1.3) mg/dL AST 35 (17-59) U/L ALT 23 (21-72) U/L Alkaline Phosphatase 55 (38-126) U/L Total Protein 6.2 L (6.3-8.3) g/dL Albumin 3.1 L (3.5-5.0) g/dL Globulin 3.1 (2.2-3.9) gm/dL Albumin/Globulin Ratio 1.0 (1.0-2.1) Arterial Blood Potassium (3.6-5.2) mmol/L 10/30/18 10/30/18 10/29/18 Range/Units 05:12 00:57 23:48 WBC (4.8-10.8) K/uL RBC (4.40-5.90) Mil/uL Hgb (12.0-18.0) g/dL Hct (35.0-51.0) % MCV (80.0-94.0) fL MCH (27.0-31.0) pg MCHC (33.0-37.0) g/dL RDW (11.5-14.5) % Plt Count (130-400) K/uL MPV (7.2-11.7) fL Neut % (Auto) (50.0-75.0) % Lymph % (Auto) (20.0-40.0) % [place] % (Auto) (0.0-10.0) % Eos % (Auto) (0.0-4.0) % Baso % (Auto) (0.0-2.0) % Neut # (Auto) (1.8-7.0) K/uL Lymph # (Auto) (1.0-4.3) K/uL [place] # (Auto) (0.0-0.8) K/uL Eos # (Auto) (0.0-0.7) K/uL Baso # (Auto) (0.0-0.2) K/uL Neutrophils % (Manual) (50-75) % Lymphocytes % (Manual) (20-40) % Monocytes % (Manual) (0-10) % Metamyelocytes % (0-0) % Platelet Estimate (NORMAL) Hypochromasia (manual) Poikilocytosis (manual Anisocytosis (manual) Ovalocytes Puncture Site Rr pCO2 71 H* (35-45) mm/Hg pO2 85 (80-100) mm/Hg HCO3 21.6 (21-28) mmol/L ABG pH 7.16 L* (7.35-7.45) ABG Total CO2 27.5 (22-28) mmol/L ABG O2 Saturation 96.0 (95-98) % ABG Base Excess -4.2 L (-2.0-3.0) mmol/L ABG Hemoglobin 10.3 L (11.7-17.4) g/dL ABG Carboxyhemoglobin 0.9 (0.5-1.5) % POC ABG HHb (Measured) 3.9 (0.0-5.0) % ABG Methemoglobin 0.5 (0.0-3.0) % Andres Test Pos ABG Potassium (3.6-5.2) mmol/L A-a O2 Difference 183.0 mm/Hg Respiratory Index 2.2 Hgb O2 Saturation 94.8 L (95.0-98.0) % Glucose (75-110) mg/dl Lactate (0.7-2.1) mmol/L Vent Mode Bipap FiO2 50.0 % Inspiratory BiPAP 14 Expiratory BiPAP 6 Crit Value Called To Dr. 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 Crit Value Read Back Y Blood Gas Notified Time 104 Sodium (132-148) mmol/L Potassium (3.6-5.2) mmol/L Chloride (98-107) mmol/L Carbon Dioxide (22-30) mmol/L Anion Gap (10-20) BUN (9-20) mg/dL Creatinine (0.8-1.5) mg/dL Est GFR ( Amer) Est GFR (Non-Af Amer) POC Glucose (mg/dL) 159 H 216 H (65-110) mg/dL Random Glucose (75-110) mg/dL Calcium (8.6-10.4) mg/dl Phosphorus (2.5-4.5) mg/dL Magnesium (1.6-2.3) mg/dL Total Bilirubin (0.2-1.3) mg/dL AST (17-59) U/L ALT (21-72) U/L Alkaline Phosphatase (38-126) U/L Total Protein (6.3-8.3) g/dL Albumin (3.5-5.0) g/dL Globulin (2.2-3.9) gm/dL Albumin/Globulin Ratio (1.0-2.1) Arterial Blood Potassium (3.6-5.2) mmol/L 18 Range/Units 17:36 WBC (4.8-10.8) K/uL RBC (4.40-5.90) Mil/uL Hgb (12.0-18.0) g/dL Hct (35.0-51.0) % MCV (80.0-94.0) fL MCH (27.0-31.0) pg MCHC (33.0-37.0) g/dL RDW (11.5-14.5) % Plt Count (130-400) K/uL MPV (7.2-11.7) fL Neut % (Auto) (50.0-75.0) % Lymph % (Auto) (20.0-40.0) % [place] % (Auto) (0.0-10.0) % Eos % (Auto) (0.0-4.0) % Baso % (Auto) (0.0-2.0) % Neut # (Auto) (1.8-7.0) K/uL Lymph # (Auto) (1.0-4.3) K/uL [place] # (Auto) (0.0-0.8) K/uL Eos # (Auto) (0.0-0.7) K/uL Baso # (Auto) (0.0-0.2) K/uL Neutrophils % (Manual) (50-75) % Lymphocytes % (Manual) (20-40) % Monocytes % (Manual) (0-10) % Metamyelocytes % (0-0) % Platelet Estimate (NORMAL) Hypochromasia (manual) Poikilocytosis (manual Anisocytosis (manual) Ovalocytes Puncture Site pCO2 (35-45) mm/Hg pO2 (80-100) mm/Hg HCO3 (21-28) mmol/L ABG pH (7.35-7.45) ABG Total CO2 (22-28) mmol/L ABG O2 Saturation (95-98) % ABG Base Excess (-2.0-3.0) mmol/L ABG Hemoglobin (11.7-17.4) g/dL ABG Carboxyhemoglobin (0.5-1.5) % POC ABG HHb (Measured) (0.0-5.0) % ABG Methemoglobin (0.0-3.0) % Andres Test ABG Potassium (3.6-5.2) mmol/L A-a O2 Difference mm/Hg Respiratory Index Hgb O2 Saturation (95.0-98.0) % Glucose (75-110) mg/dl Lactate (0.7-2.1) mmol/L Vent Mode FiO2 % Inspiratory BiPAP Expiratory BiPAP Crit Value Called To Crit Value Called By Crit Value Read Back Blood Gas Notified Time Sodium (132-148) mmol/L Potassium (3.6-5.2) mmol/L Chloride (98-107) mmol/L Carbon Dioxide (22-30) mmol/L Anion Gap (10-20) BUN (9-20) mg/dL Creatinine (0.8-1.5) mg/dL Est GFR ( Amer) Est GFR (Non-Af Amer) POC Glucose (mg/dL) 140 H (65-110) mg/dL Random Glucose (75-110) mg/dL Calcium (8.6-10.4) mg/dl Phosphorus (2.5-4.5) mg/dL Magnesium (1.6-2.3) mg/dL Total Bilirubin (0.2-1.3) mg/dL AST (17-59) U/L ALT (21-72) U/L Alkaline Phosphatase (38-126) U/L Total Protein (6.3-8.3) g/dL Albumin (3.5-5.0) g/dL Globulin (2.2-3.9) gm/dL Albumin/Globulin Ratio (1.0-2.1) Arterial Blood Potassium (3.6-5.2) mmol/L Laboratory Results - last 24 hr 10/29/18 10/29/18 10/30/18 17:36 23:48 00:57 WBC RBC Hgb Hct MCV MCH MCHC RDW Plt Count MPV Neut % (Auto) Lymph % (Auto) [place] % (Auto) Eos % (Auto) Baso % (Auto) Neut # (Auto) Lymph # (Auto) [place] # (Auto) Eos # (Auto) Baso # (Auto) Neutrophils % (Manual) Lymphocytes % (Manual) Monocytes % (Manual) Metamyelocytes % Platelet Estimate Hypochromasia (manual) Poikilocytosis (manual Anisocytosis (manual) Ovalocytes Puncture Site Rr pCO2 71 H* pO2 85 HCO3 21.6 ABG pH 7.16 L* ABG Total CO2 27.5 ABG O2 Saturation 96.0 ABG Base Excess -4.2 L ABG Hemoglobin 10.3 L ABG Carboxyhemoglobin 0.9 POC ABG HHb (Measured) 3.9 ABG Methemoglobin 0.5 Andres Test Pos ABG Potassium A-a O2 Difference 183.0 Respiratory Index 2.2 Hgb O2 Saturation 94.8 L Glucose Lactate Vent Mode Bipap FiO2 50.0 Inspiratory BiPAP 14 Expiratory BiPAP 6 Crit Value Called To Dr. 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 Crit Value Read Back Y Blood Gas Notified Time 104 Sodium Potassium Chloride Carbon Dioxide Anion Gap BUN Creatinine Est GFR ( Amer) Est GFR (Non-Af Amer) POC Glucose (mg/dL) 140 H 216 H Random Glucose Calcium Phosphorus Magnesium Total Bilirubin AST ALT Alkaline Phosphatase Total Protein Albumin Globulin Albumin/Globulin Ratio Arterial Blood Potassium 10/30/18 10/30/18 10/30/18 05:12 05:15 05:35 WBC RBC Hgb Hct MCV MCH MCHC RDW Plt Count MPV Neut % (Auto) Lymph % (Auto) [place] % (Auto) Eos % (Auto) Baso % (Auto) Neut # (Auto) Lymph # (Auto) [place] # (Auto) Eos # (Auto) Baso # (Auto) Neutrophils % (Manual) Lymphocytes % (Manual) Monocytes % (Manual) Metamyelocytes % Platelet Estimate Hypochromasia (manual) Poikilocytosis (manual Anisocytosis (manual) Ovalocytes Puncture Site Rb pCO2 57 H pO2 85 HCO3 23.8 ABG pH 7.27 L ABG Total CO2 27.9 ABG O2 Saturation 96.5 ABG Base Excess -1.4 ABG Hemoglobin 11.4 L ABG Carboxyhemoglobin 0.8 POC ABG HHb (Measured) 3.4 ABG Methemoglobin 0.8 Andres Test Na ABG Potassium A-a O2 Difference 200.0 Respiratory Index 2.4 Hgb O2 Saturation 94.9 L Glucose Lactate Vent Mode Bipap FiO2 50.0 Inspiratory BiPAP 20 Expiratory BiPAP 10 Crit Value Called To Crit Value Called By Crit Value Read Back Blood Gas Notified Time Sodium 151 H Potassium 4.6 Chloride 118 H Carbon Dioxide 25 Anion Gap 13 BUN 63 H Creatinine 1.9 H Est GFR ( Amer) 42 Est GFR (Non-Af Amer) 35 POC Glucose (mg/dL) 159 H Random Glucose 181 H Calcium 8.7 Phosphorus 3.7 Magnesium 2.4 H Total Bilirubin 0.5 AST 35 ALT 23 Alkaline Phosphatase 55 Total Protein 6.2 L Albumin 3.1 L Globulin 3.1 Albumin/Globulin Ratio 1.0 Arterial Blood Potassium 10/30/18 10/30/18 10/30/18 05:37 10:11 11:17 WBC 7.9 RBC 3.67 L Hgb 11.0 L Hct 34.8 L MCV 94.8 H MCH 30.0 MCHC 31.6 L RDW 15.0 H Plt Count 188 MPV 9.5 Neut % (Auto) 82.7 H Lymph % (Auto) 5.1 L [place] % (Auto) 10.5 H Eos % (Auto) 1.5 Baso % (Auto) 0.2 Neut # (Auto) 6.5 Lymph # (Auto) 0.4 L [place] # (Auto) 0.8 Eos # (Auto) 0.1 Baso # (Auto) 0.0 Neutrophils % (Manual) 81 H Lymphocytes % (Manual) 4 L Monocytes % (Manual) 14 H Metamyelocytes % 1 H Platelet Estimate Normal Hypochromasia (manual) Slight Poikilocytosis (manual Slight Anisocytosis (manual) Slight Ovalocytes Slight Puncture Site Rba pCO2 54 H pO2 108 H HCO3 24.4 ABG pH 7.30 L ABG Total CO2 28.3 H ABG O2 Saturation 97.3 ABG Base Excess -0.7 ABG Hemoglobin ABG Carboxyhemoglobin POC ABG HHb (Measured) ABG Methemoglobin Andres Test Na ABG Potassium 4.5 A-a O2 Difference 181.0 Respiratory Index 1.7 Hgb O2 Saturation Glucose 176 H Lactate 0.7 Vent Mode Bipap FiO2 50.0 Inspiratory BiPAP 20 Expiratory BiPAP 10 Crit Value Called To Crit Value Called By Crit Value Read Back Blood Gas Notified Time Sodium 155.0 H Potassium Chloride 124.0 H Carbon Dioxide Anion Gap BUN Creatinine Est GFR ( Amer) Est GFR (Non-Af Amer) POC Glucose (mg/dL) 155 H Random Glucose Calcium Phosphorus Magnesium Total Bilirubin AST ALT Alkaline Phosphatase Total Protein Albumin Globulin Albumin/Globulin Ratio Arterial Blood Potassium 4.5 10/30/18 17:04 WBC RBC Hgb Hct MCV MCH MCHC RDW Plt Count MPV Neut % (Auto) Lymph % (Auto) [place] % (Auto) Eos % (Auto) Baso % (Auto) Neut # (Auto) Lymph # (Auto) [place] # (Auto) Eos # (Auto) Baso # (Auto) Neutrophils % (Manual) Lymphocytes % (Manual) Monocytes % (Manual) Metamyelocytes % Platelet Estimate Hypochromasia (manual) Poikilocytosis (manual Anisocytosis (manual) Ovalocytes Puncture Site pCO2 pO2 HCO3 ABG pH ABG Total CO2 ABG O2 Saturation ABG Base Excess ABG Hemoglobin ABG Carboxyhemoglobin POC ABG HHb (Measured) ABG Methemoglobin Andres Test ABG Potassium A-a O2 Difference Respiratory Index Hgb O2 Saturation Glucose Lactate Vent Mode FiO2 Inspiratory BiPAP Expiratory BiPAP Crit Value Called To Crit Value Called By Crit Value Read Back Blood Gas Notified Time Sodium Potassium Chloride Carbon Dioxide Anion Gap BUN Creatinine Est GFR ( Amer) Est GFR (Non-Af Amer) POC Glucose (mg/dL) 169 H Random Glucose Calcium Phosphorus Magnesium Total Bilirubin AST ALT Alkaline Phosphatase Total Protein Albumin Globulin Albumin/Globulin Ratio Arterial Blood Potassium Radiology Impressions: Radiology Impressions Chest X-Ray 10/30/18 07:00 IMPRESSION: Status post extubation. No acute findings. Critical Care Progress Note - Nutrition Nutrition: Nutrition Category Date Time Status Liquid Diet [DIET] Diets 10/30/18 Lunch Active Attending/Attestation - Attestation I have personally seen and examined this patient.: Yes I have fully participated in the care of the patient.: Yes I have reviewed all pertinent clinical information: Yes Notes (Text): 10/30/18 17:42 patient seen and examined in the intensive care unit Patient self extubated last night and placed on BiPAP Patient response to vocal commands No surgical intervention Continue antibiotics Swallowing evaluation Follow-up ABG
--- NOTE | 2018-10-30 13:21 | CP.PCM.PN ---
Subjective - Date & Time of Evaluation Date of Evaluation: 10/30/18 Time of Evaluation: 10:20 - Subjective Subjective: General Surgery Pt seen and examined. Extubated and on BIPAP. Reports pain more in RUQ now, but overall better than it was. No new complaints. Afebrile Objective - Vital Signs/Intake and Output Vital Signs (last 24 hours): Temp Pulse Resp BP Pulse Ox 98.1 F 80 21 176/68 H 98 10/30/18 12:00 10/30/18 12:00 10/30/18 12:00 10/30/18 12:00 10/30/18 12:00 Intake and Output: 10/30/18 10/30/18 06:59 18:59 Intake Total 1236 475 Output Total 1700 595 Balance -464 -120 - Medications Medications: Current Medications Artificial Tears (Artificial Tears) 0 ml OU BID ERIKA Last Admin: 10/30/18 09:13 Dose: 1 drop Heparin Sodium (Porcine) (Heparin) 5,000 units SC Q8 ERIKA Last Admin: 10/30/18 05:22 Dose: 5,000 units Metronidazole (Flagyl) 500 mg in 100 mls @ 100 mls/hr IVPB Q8H ERIKA; Protocol Last Admin: 10/30/18 10:42 Dose: 100 mls/hr Meropenem 500 mg/ Sodium (Chloride) 100 mls @ 100 mls/hr IVPB Q12H ERIKA; Protocol Last Admin: 10/30/18 01:20 Dose: 100 mls/hr Fentanyl Citrate 2,500 mcg/ (Sodium Chloride) 250 mls @ 21.8 mls/hr IV .[id number] ERIKA; Protocol Last Admin: 10/30/18 04:15 Dose: Not Given Sodium Chloride (Sodium Chloride 0.45%) 1,000 mls @ 75 mls/hr IV .[id number] ERIKA Last Admin: 10/30/18 10:33 Dose: 75 mls/hr Insulin Aspart (Novolog) 0 unit SC Q6H ERIKA; Protocol Last Admin: 10/30/18 12:06 Dose: Not Given Pantoprazole Sodium (Protonix Inj) 40 mg IVP DAILY [facility] Last Admin: 10/30/18 09:12 Dose: 40 mg - Labs Labs: 10/30/18 05:37 10/30/18 05:35 PT 15.2 SECONDS (9.7-12.2) H 10/27/18 03:32 INR 1.4 10/27/18 03:32 APTT 66 SECONDS (21-34) H 10/27/18 03:32 - Constitutional Appears: Non-toxic, No Acute Distress - Head Exam Head Exam: ATRAUMATIC, NORMOCEPHALIC - Eye Exam Eye Exam: EOMI. absent: Scleral icterus - Respiratory Exam Respiratory Exam: NORMAL BREATHING PATTERN (on BIPAP). absent: Accessory Muscle Use, Respiratory Distress - Cardiovascular Exam Cardiovascular Exam: +S1, +S2 - GI/Abdominal Exam GI & Abdominal Exam: Soft, Tenderness (in RUQ). absent: Distended (mild), Firm, Guarding, Rigid, Rebound - Neurological Exam Neurological Exam: Alert, Awake - Skin Skin Exam: Dry, Warm Assessment and Plan - Assessment and Plan (Free Text) Assessment: 78M with ruptured appendicitis. Now in ICU for medical management of hypercapnic respiratory failure, Renal Failure. Plan: - Repeat CT with very small collection likely not amenable to percutaneous drainage - Continue IV Abx as per ID team - Medical maximization - No surgery at this time. - Kidney function improving - Start CLD D/W Dr. Jayme Dykes PGY4
--- NOTE | 2018-10-30 15:46 | CP.PCM.PN ---
Objective - Vital Signs/Intake and Output Vital Signs (last 24 hours): Temp Pulse Resp BP Pulse Ox 98.1 F 94 H 24 166/76 H 94 L 10/30/18 12:00 10/30/18 15:01 10/30/18 15:01 10/30/18 15:01 10/30/18 15:01 Intake and Output: 10/30/18 10/30/18 06:59 18:59 Intake Total 1236 725 Output Total 1700 1105 Balance -464 -380 - Medications Medications: Current Medications Artificial Tears (Artificial Tears) 0 ml OU BID ERIKA Last Admin: 10/30/18 09:13 Dose: 1 drop Heparin Sodium (Porcine) (Heparin) 5,000 units SC Q8 ERIKA Last Admin: 10/30/18 15:01 Dose: 5,000 units Metronidazole (Flagyl) 500 mg in 100 mls @ 100 mls/hr IVPB Q8H ERIKA; Protocol Last Admin: 10/30/18 10:42 Dose: 100 mls/hr Meropenem 500 mg/ Sodium (Chloride) 100 mls @ 100 mls/hr IVPB Q12H ERIKA; Protocol Last Admin: 10/30/18 15:00 Dose: 100 mls/hr Fentanyl Citrate 2,500 mcg/ (Sodium Chloride) 250 mls @ 21.8 mls/hr IV .[id number] ERIKA; Protocol Last Admin: 10/30/18 04:15 Dose: Not Given Sodium Chloride (Sodium Chloride 0.45%) 1,000 mls @ 75 mls/hr IV .[id number] ERIKA Last Admin: 10/30/18 10:33 Dose: 75 mls/hr Insulin Aspart (Novolog) 0 unit SC Q6H ERIKA; Protocol Last Admin: 10/30/18 12:06 Dose: Not Given Pantoprazole Sodium (Protonix Inj) 40 mg IVP DAILY ERIKA Last Admin: 10/30/18 09:12 Dose: 40 mg - Labs Labs: 10/30/18 05:37 10/30/18 05:35 PT 15.2 SECONDS (9.7-12.2) H 10/27/18 03:32 INR 1.4 10/27/18 03:32 APTT 66 SECONDS (21-34) H 10/27/18 03:32 Assessment and Plan (1) Abdominal pain Status: Acute (2) Acute appendicitis with rupture Status: Acute (3) CVA (cerebral vascular accident) Status: Acute (4) Diabetes mellitus Status: Chronic (5) RILEY (acute kidney injury) Status: Acute (6) Acute respiratory failure with hypercapnia Status: Acute
[2018-10-30] MEDS ORDERED: Labetalol 5mg/ml (4ml) IVP ONE (18:03)
--- NOTE | 2018-10-30 19:05 | CP.PCM.PN ---
Subjective - Date & Time of Evaluation Date of Evaluation: 10/30/18 Time of Evaluation: 08:00 - Subjective Subjective: extubated on BiPap Objective - Vital Signs/Intake and Output Vital Signs (last 24 hours): Temp Pulse Resp BP Pulse Ox 98.2 F 94 H 27 H 171/75 H 96 10/30/18 16:00 10/30/18 18:26 10/30/18 18:26 10/30/18 18:26 10/30/18 18:26 Intake and Output: 10/30/18 10/31/18 18:59 06:59 Intake Total 950 Output Total 1900 Balance -950 - Medications Medications: Current Medications Artificial Tears (Artificial Tears) 0 ml OU BID ERIKA Last Admin: 10/30/18 18:13 Dose: 1 drop Heparin Sodium (Porcine) (Heparin) 5,000 units SC Q8 ERIKA Last Admin: 10/30/18 15:01 Dose: 5,000 units Metronidazole (Flagyl) 500 mg in 100 mls @ 100 mls/hr IVPB Q8H ERIKA; Protocol Last Admin: 10/30/18 18:13 Dose: 100 mls/hr Meropenem 500 mg/ Sodium (Chloride) 100 mls @ 100 mls/hr IVPB Q12H ERIKA; Protocol Last Admin: 10/30/18 15:00 Dose: 100 mls/hr Fentanyl Citrate 2,500 mcg/ (Sodium Chloride) 250 mls @ 21.8 mls/hr IV .[id number] ERIKA; Protocol Last Admin: 10/30/18 04:15 Dose: Not Given Sodium Chloride (Sodium Chloride 0.45%) 1,000 mls @ 75 mls/hr IV .[id number] ERIKA Last Admin: 10/30/18 10:33 Dose: 75 mls/hr Insulin Aspart (Novolog) 0 unit SC Q6H ERIKA; Protocol Last Admin: 10/30/18 18:13 Dose: 2 u Pantoprazole Sodium (Protonix Inj) 40 mg IVP DAILY ERIKA Last Admin: 10/30/18 09:12 Dose: 40 mg - Labs Labs: 10/30/18 05:37 10/30/18 05:35 PT 15.2 SECONDS (9.7-12.2) H 10/27/18 03:32 INR 1.4 10/27/18 03:32 APTT 66 SECONDS (21-34) H 10/27/18 03:32 - Constitutional Appears: Non-toxic, Chronically Ill - Head Exam Head Exam: NORMOCEPHALIC - Eye Exam Eye Exam: PERRL - ENT Exam ENT Exam: Mucous Membranes Dry - Neck Exam Neck Exam: absent: Lymphadenopathy - Respiratory Exam Respiratory Exam: Decreased Breath Sounds, Rhonchi - Cardiovascular Exam Cardiovascular Exam: REGULAR RHYTHM - GI/Abdominal Exam GI & Abdominal Exam: Distended, Soft, Tenderness - Rectal Exam Rectal Exam: Deferred - Exam Exam: NORMAL INSPECTION - Extremities Exam Extremities Exam: Pedal Edema - Neurological Exam Neurological Exam: Alert, Awake, Oriented x3 - Psychiatric Exam Psychiatric exam: Depressed - Skin Skin Exam: Dry Assessment and Plan (1) Abdominal pain Status: Acute (2) Acute appendicitis with rupture Status: Acute - Assessment and Plan (Free Text) Assessment: cont iv rx improving slowly
--- NOTE | 2018-10-30 21:03 | CP.PCM.PN ---
Subjective - Date & Time of Evaluation Date of Evaluation: 10/30/18 Time of Evaluation: 10:00 - Subjective Subjective: clinically same Objective - Vital Signs/Intake and Output Vital Signs (last 24 hours): Temp Pulse Resp BP Pulse Ox 98.2 F 94 H 27 H 171/75 H 96 10/30/18 16:00 10/30/18 18:26 10/30/18 18:26 10/30/18 18:26 10/30/18 18:26 Intake and Output: 10/30/18 10/31/18 18:59 06:59 Intake Total 950 Output Total 1900 Balance -950 - Medications Medications: Current Medications Artificial Tears (Artificial Tears) 0 ml OU BID ERIKA Last Admin: 10/30/18 18:13 Dose: 1 drop Heparin Sodium (Porcine) (Heparin) 5,000 units SC Q8 ERIKA Last Admin: 10/30/18 15:01 Dose: 5,000 units Metronidazole (Flagyl) 500 mg in 100 mls @ 100 mls/hr IVPB Q8H ERIKA; Protocol Last Admin: 10/30/18 18:13 Dose: 100 mls/hr Meropenem 500 mg/ Sodium (Chloride) 100 mls @ 100 mls/hr IVPB Q12H ERIKA; Protocol Last Admin: 10/30/18 15:00 Dose: 100 mls/hr Fentanyl Citrate 2,500 mcg/ (Sodium Chloride) 250 mls @ 21.8 mls/hr IV .[id number] ERIKA; Protocol Last Admin: 10/30/18 04:15 Dose: Not Given Sodium Chloride (Sodium Chloride 0.45%) 1,000 mls @ 75 mls/hr IV .[id number] ERIKA Last Admin: 10/30/18 10:33 Dose: 75 mls/hr Insulin Aspart (Novolog) 0 unit SC Q6H ERIKA; Protocol Last Admin: 10/30/18 18:13 Dose: 2 u Pantoprazole Sodium (Protonix Inj) 40 mg IVP DAILY ERIKA Last Admin: 10/30/18 09:12 Dose: 40 mg - Labs Labs: 10/30/18 05:37 10/30/18 05:35 PT 15.2 SECONDS (9.7-12.2) H 10/27/18 03:32 INR 1.4 10/27/18 03:32 APTT 66 SECONDS (21-34) H 10/27/18 03:32 - Constitutional Appears: Well - Head Exam Head Exam: ATRAUMATIC, NORMAL INSPECTION, NORMOCEPHALIC - Eye Exam Eye Exam: EOMI, Normal appearance, PERRL Pupil Exam: NORMAL ACCOMODATION, PERRL - ENT Exam ENT Exam: Mucous Membranes Moist, Normal Exam - Neck Exam Neck Exam: Full ROM, Normal Inspection. absent: Lymphadenopathy - Respiratory Exam Respiratory Exam: Decreased Breath Sounds - Cardiovascular Exam Cardiovascular Exam: REGULAR RHYTHM, +S1, +S2 - GI/Abdominal Exam GI & Abdominal Exam: Soft, Diminished Bowel Sounds - Rectal Exam Rectal Exam: Deferred
[2018-10-31] MEDS: (Novolog) Insulin Aspart, Recombinant 100 u/ml 10 ml vial SC SCH ×5 (00:06→21:44)
[2018-10-31] MEDS: Meropenem 500 MG in Sodium Chloride 0.9% 100 ML IVPB SCH ×2 (01:37→14:35)
[2018-10-31] MEDS: metroNIDAZOLE IV 500 mg/100 ml 500 MG/100 ML BAG IVPB SCH ×3 (02:46→19:10)
[2018-10-31] MEDS: Sodium Chloride 0.45% 1,000 ML IV SCH (05:34)
[2018-10-31 06:18] LABS: BASO % 0.5 % (0.0-2.0); EOS # 0.2 K/uL (0.0-0.7); EOS % 2.6 % (0.0-4.0); HEMOGLOBIN 11.1 g/dL (12.0-18.0); LYMPH # 0.4 K/uL (1.0-4.3); LYMPH % 5.5 % (20.0-40.0); MEAN CELL VOLUME 93.5 fL (80.0-94.0); MEAN CORPUSCULAR HEMOGLOBIN 30.2 pg (27.0-31.0); MEAN CORPUSCULAR HGB CONC 32.3 g/dL (33.0-37.0); MEAN PLATELET VOLUME 9.9 fL (7.2-11.7); MONO # 0.6 K/uL (0.0-0.8); MONO % 8.4 % (0.0-10.0); NEUT # 6.3 K/uL (1.8-7.0); NRBC % 0.1 % (0.0-2.0); PLATELET COUNT 139 K/uL (130-400); RBC 3.67 Mil/uL (4.40-5.90); RED CELL DISTRIBUTION WIDTH 14.8 % (11.5-14.5); WHITE BLOOD COUNT 7.5 K/uL (4.8-10.8)
[2018-10-31 06:32] LABS: CALCIUM 8.7 mg/dl (8.6-10.4)
--- NOTE | 2018-10-31 07:47 | CP.PCM.PN ---
Subjective - Date & Time of Evaluation Date of Evaluation: 10/31/18 Time of Evaluation: 06:50 - Subjective Subjective: General Surgery Pt seen and examined. Much improved today, denies RLQ pain. Still with mild RUQ pain. No new complaints. Objective - Vital Signs/Intake and Output Vital Signs (last 24 hours): Temp Pulse Resp BP Pulse Ox 99 F 100 H 22 179/89 H 95 10/31/18 04:00 10/31/18 07:27 10/31/18 06:37 10/31/18 06:37 10/31/18 06:37 Intake and Output: 10/31/18 10/31/18 06:59 18:59 Intake Total 1200 75 Output Total 1250 150 Balance -50 -75 - Medications Medications: Current Medications Artificial Tears (Artificial Tears) 0 ml OU BID ERIKA Last Admin: 10/30/18 18:13 Dose: 1 drop Heparin Sodium (Porcine) (Heparin) 5,000 units SC Q8 ERIKA Last Admin: 10/31/18 05:33 Dose: 5,000 units Metronidazole (Flagyl) 500 mg in 100 mls @ 100 mls/hr IVPB Q8H ERIKA; Protocol Last Admin: 10/31/18 02:46 Dose: 100 mls/hr Meropenem 500 mg/ Sodium (Chloride) 100 mls @ 100 mls/hr IVPB Q12H ERIKA; Protocol Last Admin: 10/31/18 01:37 Dose: 100 mls/hr Fentanyl Citrate 2,500 mcg/ (Sodium Chloride) 250 mls @ 21.8 mls/hr IV .[id number] ERIKA; Protocol Last Admin: 10/30/18 04:15 Dose: Not Given Sodium Chloride (Sodium Chloride 0.45%) 1,000 mls @ 75 mls/hr IV .[id number] ERIKA Last Admin: 10/31/18 05:34 Dose: 75 mls/hr Insulin Aspart (Novolog) 0 unit SC Q6H ERIKA; Protocol Last Admin: 10/31/18 06:48 Dose: 3 u Pantoprazole Sodium (Protonix Inj) 40 mg IVP DAILY ERIKA Last Admin: 10/30/18 09:12 Dose: 40 mg - Labs Labs: 10/31/18 06:11 10/31/18 06:09 PT 15.2 SECONDS (9.7-12.2) H 10/27/18 03:32 INR 1.4 10/27/18 03:32 APTT 66 SECONDS (21-34) H 10/27/18 03:32 - Constitutional Appears: Non-toxic, No Acute Distress - Head Exam Head Exam: ATRAUMATIC, NORMOCEPHALIC - Eye Exam Eye Exam: EOMI. absent: Scleral icterus - Respiratory Exam Respiratory Exam: NORMAL BREATHING PATTERN. absent: Respiratory Distress - Cardiovascular Exam Cardiovascular Exam: Tachycardia (mild @ 102bpm) - GI/Abdominal Exam GI & Abdominal Exam: Soft, Tenderness (mild in RUQ, no pain in RLQ). absent: Distended, Firm, Guarding, Rigid, Rebound - Extremities Exam Extremities Exam: Normal Capillary Refill. absent: Calf Tenderness - Neurological Exam Neurological Exam: Alert, Awake, Oriented x3 - Skin Skin Exam: Dry, Warm Assessment and Plan - Assessment and Plan (Free Text) Assessment: 78M with ruptured appendicitis, hypercapnic respiratory failure, and acute on chronic renal failure which are resolving Plan: - Continue Abx per ID - Kidney function improved - Start Heart healthy diet - No surgery planned this admission as long as patient continues to improve. - Pt can follow up as an outpatient with Dr. Delacruz in 6-8 weeks to discuss possibility of interval appendectomy. D/W Dr. Jayme Dykes PGY4
[2018-10-31 08:34] LABS: EOSINOPHIL 1 % (0-4); LYMPHOCYTE 3 % (20-40); MONOCYTE 10 % (0-10); MYELOCYTE 1 % (0-0); NEUTROPHIL 85 % (50-75); NUCLEATED RED BLOOD CELL 1 % (0-0); PLATELET ESTIMATE NORMAL (NORMAL); TOTAL CELLS COUNTED 100
[2018-10-31 08:36] LABS: ANISOCYTOSIS SLIGHT; HYPOCHROMIC SLIGHT; PLATELET CLUMPS PRESENT; POIKILOCYTOSIS SLIGHT
[2018-10-31] MEDS: Aritificial Tears (15ml) OU SCH ×2 (09:15→18:33)
--- NOTE | 2018-10-31 12:18 | CP.CCUPN ---
CCU Subjective - Physician Review Subjective (Free Text): Critical Care Progress Note for Dr. Tejada's service Patient seen and examined at bedside. Patient no longer intubated. Patient states he has minimal abdominal pain and that it barely bothers him. Patient passing gas. Patient denies fevers, chills, chest pain, sob, n/v, constipation or diarrhea, and dysuria. Critical Care Time Spent (in minutes): 45 CCU Objective - Vital Signs / Intake & Output Vital Signs (Last 4 hours): Vital Signs Temp Pulse Resp BP Pulse Ox 10/31/18 10:00 103 H 14 154/103 H 97 10/31/18 09:00 95 H 23 183/99 H 95 10/31/18 08:00 99.1 F 94 H 27 H 170/88 H 97 Intake and Output (Last 8hrs): Intake & Output 10/30/18 10/31/18 10/31/18 22:59 06:59 14:59 Intake Total 675 850 420 Output Total 1265 900 350 Balance -590 -50 70 Weight 268 lb 8 oz Intake: Intake, IV Amount 625 650 300 Right Wrist 625 650 300 Oral 50 200 120 Output: Urine 1265 900 350 Urethral (Stewart) 1265 900 150 Urine, Voided 200 Other: # Voids Urethral (Stewart) 1 0 1 # Bowel Movements 0 0 0 - Physical Exam Head: Positive for: Atraumatic, Normocephalic Pupils: Positive for: PERRL Extroacular Muscles: Positive for: EOMI Conjunctiva: Positive for: Normal Ears: Positive for: Normal Mouth: Positive for: Moist Mucous Membranes Nose (External): Positive for: Atraumatic Neck: Positive for: Normal Range of Motion. Negative for: Meningeal Signs Respiratory/Chest: Positive for: Clear to Auscultation, Good Air Exchange. Negative for: Respiratory Distress Cardiovascular: Positive for: Regular Rate and Rhythm, Normal S1, S2 Abdomen: Positive for: Tenderness, Distention, Normal Bowel Sounds. Negative for: Peritoneal Signs, Rebound, Guarding Upper Extremity: Positive for: Normal Inspection. Negative for: Cyanosis, Edema Lower Extremity: Positive for: Normal Inspection. Negative for: Edema Neurological: Positive for: GCS=15, Speech Normal Skin: Positive for: Warm, Normal Color Psychiatric: Positive for: Alert, Oriented x 3 - Medications Active Medications: Active Medications Generic Name Dose Route Start Last Admin Trade Name Traceq PRN Reason Stop Dose Admin Artificial Tears 0 ml 10/29/18 22:00 10/31/18 09:15 Artificial Tears OU 1 drop BID ERIKA Administration Heparin Sodium (Porcine) 5,000 units 10/28/18 14:00 10/31/18 05:33 Heparin SC 5,000 units Q8 ERIKA Administration Metronidazole 500 mg in 100 mls @ 100 mls/hr 10/24/18 19:00 10/31/18 11:24 Flagyl IVPB 100 mls/hr Q8H ERIKA Administration Protocol Meropenem 500 mg/ Sodium 100 mls @ 100 mls/hr 10/27/18 02:00 10/31/18 01:37 Chloride IVPB 100 mls/hr Q12H ERIKA Administration Protocol Insulin Aspart 0 unit 10/31/18 16:30 Novolog SC ACHS ERIKA Protocol Pantoprazole Sodium 40 mg 11/01/18 10:00 Protonix Ec Tab PO DAILY ERIKA - Patient Studies Lab Studies: Lab Studies 10/31/18 10/31/18 10/31/18 Range/Units 11:21 06:11 06:09 WBC 7.5 (4.8-10.8) K/uL RBC 3.67 L (4.40-5.90) Mil/uL Hgb 11.1 L (12.0-18.0) g/dL Hct 34.3 L (35.0-51.0) % MCV 93.5 (80.0-94.0) fL MCH 30.2 (27.0-31.0) pg MCHC 32.3 L (33.0-37.0) g/dL RDW 14.8 H (11.5-14.5) % Plt Count 139 (130-400) K/uL MPV 9.9 (7.2-11.7) fL Neut % (Auto) 83.0 H (50.0-75.0) % Lymph % (Auto) 5.5 L (20.0-40.0) % Rogers % (Auto) 8.4 (0.0-10.0) % Eos % (Auto) 2.6 (0.0-4.0) % Baso % (Auto) 0.5 (0.0-2.0) % Neut # (Auto) 6.3 (1.8-7.0) K/uL Lymph # (Auto) 0.4 L (1.0-4.3) K/uL Rogers # (Auto) 0.6 (0.0-0.8) K/uL Eos # (Auto) 0.2 (0.0-0.7) K/uL Baso # (Auto) 0.0 (0.0-0.2) K/uL Neutrophils % (Manual) 85 H (50-75) % Lymphocytes % (Manual) 3 L (20-40) % Monocytes % (Manual) 10 (0-10) % Eosinophils % (Manual) 1 (0-4) % Myelocytes % 1 H (0-0) % Nucleated RBC % 1 H (0-0) % Differential Comment Platelet Estimate Normal (NORMAL) Plt Clumps, EDTA Present Hypochromasia (manual) Slight Poikilocytosis (manual Slight Anisocytosis (manual) Slight Sodium 151 H (132-148) mmol/L Potassium 4.7 (3.6-5.2) mmol/L Chloride 117 H (98-107) mmol/L Carbon Dioxide 29 (22-30) mmol/L Anion Gap 10 (10-20) BUN 46 H (9-20) mg/dL Creatinine 1.4 (0.8-1.5) mg/dL Est GFR ( Amer) 59 Est GFR (Non-Af Amer) 49 POC Glucose (mg/dL) 180 H (65-110) mg/dL Random Glucose 170 H (75-110) mg/dL Calcium 8.7 (8.6-10.4) mg/dl Phosphorus 3.1 (2.5-4.5) mg/dL Magnesium 2.1 (1.6-2.3) mg/dL Total Bilirubin 0.7 (0.2-1.3) mg/dL AST 33 (17-59) U/L ALT 30 (21-72) U/L Alkaline Phosphatase 54 (38-126) U/L Total Protein 6.1 L (6.3-8.3) g/dL Albumin 3.0 L (3.5-5.0) g/dL Globulin 3.1 (2.2-3.9) gm/dL Albumin/Globulin Ratio 1.0 (1.0-2.1) 10/31/18 10/30/1810/30/18 Range/Units 06:05 23:26 17:04 WBC (4.8-10.8) K/uL RBC (4.40-5.90) Mil/uL Hgb (12.0-18.0) g/dL Hct (35.0-51.0) % MCV (80.0-94.0) fL MCH (27.0-31.0) pg MCHC (33.0-37.0) g/dL RDW (11.5-14.5) % Plt Count (130-400) K/uL MPV (7.2-11.7) fL Neut % (Auto) (50.0-75.0) % Lymph % (Auto) (20.0-40.0) % Rogers % (Auto) (0.0-10.0) % Eos % (Auto) (0.0-4.0) % Baso % (Auto) (0.0-2.0) % Neut # (Auto) (1.8-7.0) K/uL Lymph # (Auto) (1.0-4.3) K/uL Rogers # (Auto) (0.0-0.8) K/uL Eos # (Auto) (0.0-0.7) K/uL Baso # (Auto) (0.0-0.2) K/uL Neutrophils % (Manual) (50-75) % Lymphocytes % (Manual) (20-40) % Monocytes % (Manual) (0-10) % Eosinophils % (Manual) (0-4) % Myelocytes % (0-0) % Nucleated RBC % (0-0) % Differential Comment Platelet Estimate (NORMAL) Plt Clumps, EDTA Hypochromasia (manual) Poikilocytosis (manual Anisocytosis (manual) Sodium (132-148) mmol/L Potassium (3.6-5.2) mmol/L Chloride (98-107) mmol/L Carbon Dioxide (22-30) mmol/L Anion Gap (10-20) BUN (9-20) mg/dL Creatinine (0.8-1.5) mg/dL Est GFR ( Amer) Est GFR (Non-Af Amer) POC Glucose (mg/dL) 206 H 163 H 169 H (65-110) mg/dL Random Glucose (75-110) mg/dL Calcium (8.6-10.4) mg/dl Phosphorus (2.5-4.5) mg/dL Magnesium (1.6-2.3) mg/dL Total Bilirubin (0.2-1.3) mg/dL AST (17-59) U/L ALT (21-72) U/L Alkaline Phosphatase (38-126) U/L Total Protein (6.3-8.3) g/dL Albumin (3.5-5.0) g/dL Globulin (2.2-3.9) gm/dL Albumin/Globulin Ratio (1.0-2.1) 10/30/18 Range/Units 11:17 WBC (4.8-10.8) K/uL RBC (4.40-5.90) Mil/uL Hgb (12.0-18.0) g/dL Hct (35.0-51.0) % MCV (80.0-94.0) fL MCH (27.0-31.0) pg MCHC (33.0-37.0) g/dL RDW (11.5-14.5) % Plt Count (130-400) K/uL MPV (7.2-11.7) fL Neut % (Auto) (50.0-75.0) % Lymph % (Auto) (20.0-40.0) % Rogers % (Auto) (0.0-10.0) % Eos % (Auto) (0.0-4.0) % Baso % (Auto) (0.0-2.0) % Neut # (Auto) (1.8-7.0) K/uL Lymph # (Auto) (1.0-4.3) K/uL Rogers # (Auto) (0.0-0.8) K/uL Eos # (Auto) (0.0-0.7) K/uL Baso # (Auto) (0.0-0.2) K/uL Neutrophils % (Manual) (50-75) % Lymphocytes % (Manual) (20-40) % Monocytes % (Manual) (0-10) % Eosinophils % (Manual) (0-4) % Myelocytes % (0-0) % Nucleated RBC % (0-0) % Differential Comment Platelet Estimate (NORMAL) Plt Clumps, EDTA Hypochromasia (manual) Poikilocytosis (manual Anisocytosis (manual) Sodium (132-148) mmol/L Potassium (3.6-5.2) mmol/L Chloride (98-107) mmol/L Carbon Dioxide (22-30) mmol/L Anion Gap (10-20) BUN (9-20) mg/dL Creatinine (0.8-1.5) mg/dL Est GFR ( Amer) Est GFR (Non-Af Amer) POC Glucose (mg/dL) 155 H (65-110) mg/dL Random Glucose (75-110) mg/dL Calcium (8.6-10.4) mg/dl Phosphorus (2.5-4.5) mg/dL Magnesium (1.6-2.3) mg/dL Total Bilirubin (0.2-1.3) mg/dL AST (17-59) U/L ALT (21-72) U/L Alkaline Phosphatase (38-126) U/L Total Protein (6.3-8.3) g/dL Albumin (3.5-5.0) g/dL Globulin (2.2-3.9) gm/dL Albumin/Globulin Ratio (1.0-2.1) Laboratory Results - last 24 hr 10/30/18 10/30/18 10/30/18 11:17 17:04 23:26 WBC RBC Hgb Hct MCV MCH MCHC RDW Plt Count MPV Neut % (Auto) Lymph % (Auto) Rogers % (Auto) Eos % (Auto) Baso % (Auto) Neut # (Auto) Lymph # (Auto) Rogers # (Auto) Eos # (Auto) Baso # (Auto) Neutrophils % (Manual) Lymphocytes % (Manual) Monocytes % (Manual) Eosinophils % (Manual) Myelocytes % Nucleated RBC % Differential Comment Platelet Estimate Plt Clumps, EDTA Hypochromasia (manual) Poikilocytosis (manual Anisocytosis (manual) Sodium Potassium Chloride Carbon Dioxide Anion Gap BUN Creatinine Est GFR ( Amer) Est GFR (Non-Af Amer) POC Glucose (mg/dL) 155 H 169 H 163 H Random Glucose Calcium Phosphorus Magnesium Total Bilirubin AST ALT Alkaline Phosphatase Total Protein Albumin Globulin Albumin/Globulin Ratio 10/31/18 10/31/18 10/31/18 06:05 06:09 06:11 WBC 7.5 RBC 3.67 L Hgb 11.1 L Hct 34.3 L MCV 93.5 MCH 30.2 MCHC 32.3 L RDW 14.8 H Plt Count 139 MPV 9.9 Neut % (Auto) 83.0 H Lymph % (Auto) 5.5 L Rogers % (Auto) 8.4 Eos % (Auto) 2.6 Baso % (Auto) 0.5 Neut # (Auto) 6.3 Lymph # (Auto) 0.4 L Rogers # (Auto) 0.6 Eos # (Auto) 0.2 Baso # (Auto) 0.0 Neutrophils % (Manual) 85 H Lymphocytes % (Manual) 3 L Monocytes % (Manual) 10 Eosinophils % (Manual) 1 Myelocytes % 1 H Nucleated RBC % 1 H Differential Comment Platelet Estimate Normal Plt Clumps, EDTA Present Hypochromasia (manual) Slight Poikilocytosis (manual Slight Anisocytosis (manual) Slight Sodium 151 H Potassium 4.7 Chloride 117 H Carbon Dioxide 29 Anion Gap 10 BUN 46 H Creatinine 1.4 Est GFR ( Amer) 59 Est GFR (Non-Af Amer) 49 POC Glucose (mg/dL) 206 H Random Glucose 170 H Calcium 8.7 Phosphorus 3.1 Magnesium 2.1 Total Bilirubin 0.7 AST 33 ALT 30 Alkaline Phosphatase 54 Total Protein 6.1 L Albumin 3.0 L Globulin 3.1 Albumin/Globulin Ratio 1.0 10/31/18 11:21 WBC RBC Hgb Hct MCV MCH MCHC RDW Plt Count MPV Neut % (Auto) Lymph % (Auto) Rogers % (Auto) Eos % (Auto) Baso % (Auto) Neut # (Auto) Lymph # (Auto) Rogers # (Auto) Eos # (Auto) Baso # (Auto) Neutrophils % (Manual) Lymphocytes % (Manual) Monocytes % (Manual) Eosinophils % (Manual) Myelocytes % Nucleated RBC % Differential Comment Platelet Estimate Plt Clumps, EDTA Hypochromasia (manual) Poikilocytosis (manual Anisocytosis (manual) Sodium Potassium Chloride Carbon Dioxide Anion Gap BUN Creatinine Est GFR ( Amer) Est GFR (Non-Af Amer) POC Glucose (mg/dL) 180 H Random Glucose Calcium Phosphorus Magnesium Total Bilirubin AST ALT Alkaline Phosphatase Total Protein Albumin Globulin Albumin/Globulin Ratio Fingerstick Blood Sugar Results: 180 Results Reviewed to Date: Yes Review of Systems - Review of Systems Review of Systems: 12 point ROS obtained and noted as in HPI Critical Care Progress Note - Nutrition Nutrition: Nutrition Category Date Time Status Heart Healthy Diet [DIET] Diets 10/31/18 Breakfast Active Assessment/Plan - Assessment and Plan (Free Text) Assessment: 78yo M. PMHx HTN, DM type 2, CAD, HLD, HTN, CAD, CABG. Being treated medically for suspected rupture appendicitis. Patient started retaining CO2 and went into respiratory failure, requiring intubation. Neuro: verbal, awake, alert; fentanyl drip on hold Pulm: acute respiratory failure with hypercapnia s/p on vent; On nasal cannula CV: Hx of HTN- Anti-HTNs started as per home meds; RECHECK blood pressure before anti-HTNs at 6:00 pm in evening GI: Heart Healthy Diet. Fentanly drip- on hold Hem: no acute issues Renal: acute kidney injury; possibly no CKD with GFR numbers returning to normal; Cr trending down; Fluids d'ed Endo: DM type 2, ISS ACHS ID: [id number] from appendicitis, improving, continue meropenem and metronidazole. Further appendicitis management as per Surgery Will be downgraded from ICU to tele floor DVT proph - Heparin 5000 units sc q8h GI proph - protonix stewart for strict I/O's during acute illness surgical recommendations for continued management of appendicitis
[2018-10-31] MEDS: Metoprolol Succinate 100 mg XL Tab PO SCH (12:31)
--- NOTE | 2018-10-31 17:44 | CP.PCM.PN ---
Subjective - Date & Time of Evaluation Date of Evaluation: 10/31/18 Time of Evaluation: 08:45 - Subjective Subjective: clinically same Objective - Vital Signs/Intake and Output Vital Signs (last 24 hours): Temp Pulse Resp BP Pulse Ox 98.1 F 93 H 20 190/83 H 94 L 10/31/18 15:10 10/31/18 16:00 10/31/18 15:10 10/31/18 15:10 10/31/18 15:10 Intake and Output: 10/31/18 10/31/18 06:59 18:59 Intake Total 1200 670 Output Total 1250 850 Balance -50 -180 - Medications Medications: Current Medications Amlodipine Besylate (Norvasc) 10 mg PO DAILY [facility] Last Admin: 10/31/18 17:42 Dose: 10 mg Artificial Tears (Artificial Tears) 0 ml OU BID [facility] Last Admin: 10/31/18 09:15 Dose: 1 drop Heparin Sodium (Porcine) (Heparin) 5,000 units SC Q8 [facility] Last Admin: 10/31/18 14:34 Dose: 5,000 units Hydralazine HCl (Apresoline) 50 mg PO BID [facility] Last Admin: 10/31/18 17:42 Dose: 50 mg Hydrochlorothiazide (Hydrodiuril) 25 mg PO DAILY [facility] Last Admin: 10/31/18 12:32 Dose: 25 mg Metronidazole (Flagyl) 500 mg in 100 mls @ 100 mls/hr IVPB Q8H ERIKA; Protocol Last Admin: 10/31/18 11:24 Dose: 100 mls/hr Meropenem 500 mg/ Sodium (Chloride) 100 mls @ 100 mls/hr IVPB Q12H ERIKA; Protocol Last Admin: 10/31/18 14:35 Dose: 100 mls/hr Insulin Aspart (Novolog) 0 unit SC ACHS ERIKA; Protocol Last Admin: 10/31/18 17:41 Dose: 2 unit Losartan Potassium (Cozaar) 25 mg PO DAILY [facility] Last Admin: 10/31/18 12:31 Dose: 25 mg Metoprolol Succinate (Toprol Xl) 100 mg PO DAILY [facility] Last Admin: 10/31/18 12:31 Dose: 100 mg Pantoprazole Sodium (Protonix Ec Tab) 40 mg PO DAILY [facility] - Labs Labs: 10/31/18 06:11 10/31/18 06:09 PT 15.2 SECONDS (9.7-12.2) H 10/27/18 03:32 INR 1.4 10/27/18 03:32 APTT 66 SECONDS (21-34) H 10/27/18 03:32 - Constitutional Appears: Well - Head Exam Head Exam: ATRAUMATIC, NORMAL INSPECTION, NORMOCEPHALIC - Eye Exam Eye Exam: EOMI, Normal appearance, PERRL Pupil Exam: NORMAL ACCOMODATION, PERRL - ENT Exam ENT Exam: Mucous Membranes Moist, Normal Exam - Neck Exam Neck Exam: Full ROM, Normal Inspection. absent: Lymphadenopathy - Respiratory Exam Respiratory Exam: Decreased Breath Sounds - Cardiovascular Exam Cardiovascular Exam: REGULAR RHYTHM, +S1, +S2 - GI/Abdominal Exam GI & Abdominal Exam: Soft, Diminished Bowel Sounds - Rectal Exam Rectal Exam: Deferred
--- NOTE | 2018-10-31 20:06 | CP.PCM.PN ---
Subjective - Date & Time of Evaluation Date of Evaluation: 10/31/18 Time of Evaluation: 20:06 Objective - Vital Signs/Intake and Output Vital Signs (last 24 hours): Temp Pulse Resp BP Pulse Ox 98.1 F 93 H 20 190/83 H 94 L 10/31/18 15:10 10/31/18 16:00 10/31/18 15:10 10/31/18 15:10 10/31/18 15:10 Intake and Output: 10/31/18 11/01/18 18:59 06:59 Intake Total 670 Output Total 850 Balance -180 - Medications Medications: Current Medications Amlodipine Besylate (Norvasc) 10 mg PO DAILY [facility] Last Admin: 10/31/18 17:42 Dose: 10 mg Artificial Tears (Artificial Tears) 0 ml OU BID [facility] Last Admin: 10/31/18 18:33 Dose: 2 drop Heparin Sodium (Porcine) (Heparin) 5,000 units SC Q8 [facility]RIKA Last Admin: 10/31/18 14:34 Dose: 5,000 units Hydralazine HCl (Apresoline) 50 mg PO BID ERIKA Last Admin: 10/31/18 17:42 Dose: 50 mg Hydrochlorothiazide (Hydrodiuril) 25 mg PO DAILY [facility] Last Admin: 10/31/18 12:32 Dose: 25 mg Metronidazole (Flagyl) 500 mg in 100 mls @ 100 mls/hr IVPB Q8H ERIKA; Protocol Last Admin: 10/31/18 19:10 Dose: 100 mls/hr Meropenem 500 mg/ Sodium (Chloride) 100 mls @ 100 mls/hr IVPB Q12H ERIKA; Protoco l Last Admin: 10/31/18 14:35 Dose: 100 mls/hr Insulin Aspart (Novolog) 0 unit SC ACHS ERIKA; Protocol Last Admin: 10/31/18 17:41 Dose: 2 unit Losartan Potassium (Cozaar) 25 mg PO DAILY [facility] Last Admin: 10/31/18 12:31 Dose: 25 mg Metoprolol Succinate (Toprol Xl) 100 mg PO DAILY [facility] Last Admin: 10/31/18 12:31 Dose: 100 mg Pantoprazole Sodium (Protonix Ec Tab) 40 mg PO DAILY [facility] - Labs Labs: 10/31/18 06:11 10/31/18 06:09 PT 15.2 SECONDS (9.7-12.2) H 10/27/18 03:32 INR 1.4 10/27/18 03:32 APTT 66 SECONDS (21-34) H 10/27/18 03:32 Assessment and Plan (1) Abdominal pain Status: Acute (2) Acute appendicitis with rupture Status: Acute (3) CVA (cerebral vascular accident) Status: Acute (4) Diabetes mellitus Status: Chronic (5) RILEY (acute kidney injury) Status: Acute (6) Acute respiratory failure with hypercapnia Status: Acute
[2018-11-01] MEDS ORDERED: guaiFENesin 100 mg/5 ml Syrup UD PO ONE (00:25)
[2018-11-01] MEDS: Meropenem 500 MG in Sodium Chloride 0.9% 100 ML IVPB SCH ×2 (01:00→13:44)
[2018-11-01] MEDS: metroNIDAZOLE IV 500 mg/100 ml 500 MG/100 ML BAG IVPB SCH ×3 (02:01→19:06)
[2018-11-01 07:42] LABS: BASO % 0.2 % (0.0-2.0); EOS # 0.1 K/uL (0.0-0.7); EOS % 0.8 % (0.0-4.0); HEMOGLOBIN 11.5 g/dL (12.0-18.0); LYMPH # 0.4 K/uL (1.0-4.3); LYMPH % 5.3 % (20.0-40.0); RED CELL DISTRIBUTION WIDTH 14.7 % (11.5-14.5); WHITE BLOOD COUNT 8.5 K/uL (4.8-10.8)
--- NOTE | 2018-11-01 07:43 | CP.PCM.PN ---
Subjective - Date & Time of Evaluation Date of Evaluation: 11/01/18 Time of Evaluation: 06:45 - Subjective Subjective: Surgery Progress note. Dr. Delacruz Pt seen and examined at bedside this morning. No new complaints. Abd pain improved. Tolerating diet. Denies any N/V/D. No Fevers or chills. Objective - Vital Signs/Intake and Output Vital Signs (last 24 hours): Temp Pulse Resp BP Pulse Ox 98.4 F 90 20 169/79 H 98 10/31/18 23:40 11/01/18 04:00 10/31/18 23:40 10/31/18 23:40 10/31/18 23:40 - Medications Medications: Current Medications Amlodipine Besylate (Norvasc) 10 mg PO DAILY [facility] Last Admin: 10/31/18 17:42 Dose: 10 mg Artificial Tears (Artificial Tears) 0 ml OU BID [facility] Last Admin: 10/31/18 18:33 Dose: 2 drop Heparin Sodium (Porcine) (Heparin) 5,000 units SC Q8 [facility] Last Admin: 11/01/18 05:41 Dose: 5,000 units Hydralazine HCl (Apresoline) 50 mg PO BID [facility] Last Admin: 10/31/18 17:42 Dose: 50 mg Hydrochlorothiazide (Hydrodiuril) 25 mg PO DAILY [facility] Last Admin: 10/31/18 12:32 Dose: 25 mg Metronidazole (Flagyl) 500 mg in 100 mls @ 100 mls/hr IVPB Q8H ERIKA; Protocol Last Admin: 11/01/18 02:01 Dose: 100 mls/hr Meropenem 500 mg/ Sodium (Chloride) 100 mls @ 100 mls/hr IVPB Q12H ERIKA; Protoco l Last Admin: 11/01/18 01:00 Dose: 100 mls/hr Insulin Aspart (Novolog) 0 unit SC ACHS ERIKA; Protocol Last Admin: 10/31/18 21:44 Dose: Not Given Losartan Potassium (Cozaar) 25 mg PO DAILY [facility] Last Admin: 10/31/18 12:31 Dose: 25 mg Metoprolol Succinate (Toprol Xl) 100 mg PO DAILY [facility] Last Admin: 10/31/18 12:31 Dose: 100 mg Pantoprazole Sodium (Protonix Ec Tab) 40 mg PO DAILY [facility] - Labs Labs: 10/31/18 06:11 10/31/18 06:09 PT 15.2 SECONDS (9.7-12.2) H 10/27/18 03:32 INR 1.4 10/27/18 03:32 APTT 66 SECONDS (21-34) H 10/27/18 03:32 - Constitutional Appears: Well, Non-toxic, No Acute Distress - Head Exam Head Exam: ATRAUMATIC, NORMAL INSPECTION, NORMOCEPHALIC - Eye Exam Eye Exam: EOMI, Normal appearance - ENT Exam ENT Exam: Mucous Membranes Moist - Respiratory Exam Respiratory Exam: NORMAL BREATHING PATTERN. absent: Accessory Muscle Use, Wheezes, Respiratory Distress - Cardiovascular Exam Cardiovascular Exam: RRR. absent: JVD - GI/Abdominal Exam GI & Abdominal Exam: Soft. absent: Distended, Firm, Guarding, Rigid, Tenderness, Rebound - Extremities Exam Extremities Exam: Normal Inspection. absent: Calf Tenderness - Neurological Exam Neurological Exam: Alert, Awake, Oriented x3 - Psychiatric Exam Psychiatric exam: Normal Affect, Normal Mood - Skin Skin Exam: Dry, Intact, Normal Color, Warm Assessment and Plan - Assessment and Plan (Free Text) Assessment: 78yo M with ruptured Appendicitis, hypercapnic respiratory failure (resolved), and acute on chronic renal failure (resolving) Plan: - Continue Abx. Recommend PO abx upon discharge: 7 Days of Levaquin PO and Flagyl PO - Patient may follow up with Dr. Delacruz within 6-8 weeks in office to have a discussion regarding an interval appendectomy - Continue regular diet - No further plans from surgical standpoint. - Please call us with any other concerns Further recs as per Dr. Jayme Pinon PGY2 surgery
[2018-11-01 07:47] LABS: MEAN CELL VOLUME 92.5 fL (80.0-94.0); MEAN CORPUSCULAR HGB CONC 32.4 g/dL (33.0-37.0); MEAN PLATELET VOLUME 8.5 fL (7.2-11.7); MONO # 0.8 K/uL (0.0-0.8); MONO % 8.8 % (0.0-10.0); NEUT # 7.2 K/uL (1.8-7.0); NEUT % 84.9 % (50.0-75.0); RBC 3.84 Mil/uL (4.40-5.90)
[2018-11-01 07:56] LABS: PLATELET COUNT 115 K/uL (130-400)
[2018-11-01] MEDS: (Novolog) Insulin Aspart, Recombinant 100 u/ml 10 ml vial SC SCH ×4 (08:02→22:00)
[2018-11-01 08:10] LABS: ALBUMIN 2.8 g/dL (3.5-5.0); CALCIUM 8.5 mg/dl (8.6-10.4)
[2018-11-01 09:10] LABS: ANISOCYTOSIS SLIGHT; EOSINOPHIL 1 % (0-4); LYMPHOCYTE 7 % (20-40); MONOCYTE 4 % (0-10); NEUTROPHIL 88 % (50-75); PLATELET ESTIMATE SLIGHTLY DECREASED (NORMAL); POIKILOCYTOSIS SLIGHT; TOTAL CELLS COUNTED 100
[2018-11-01 09:11] LABS: HYPOCHROMIC SLIGHT
[2018-11-01] MEDS: Pantoprazole 40 mg EC Tab PO SCH (09:16)
[2018-11-01] MEDS: Metoprolol Succinate 100 mg XL Tab PO SCH (09:16)
[2018-11-01] MEDS: Aritificial Tears (15ml) OU SCH ×2 (09:17→17:32)
--- NOTE | 2018-11-01 15:15 | CP.PCM.PN ---
Subjective - Date & Time of Evaluation Date of Evaluation: 11/01/18 Time of Evaluation: 15:14 - Subjective Subjective: Patient seen and examined Sitting comfortably in bed No events overnight Tolerating oral intake Minimal abdominal pain Objective - Vital Signs/Intake and Output Vital Signs (last 24 hours): Temp Pulse Resp BP Pulse Ox 98.0 F 92 H 18 168/72 H 95 11/01/18 07:25 11/01/18 12:30 11/01/18 07:25 11/01/18 09:18 11/01/18 07:25 Intake and Output: 11/01/18 11/01/18 06:59 18:59 Intake Total 550 Balance 550 - Medications Medications: Current Medications Amlodipine Besylate (Norvasc) 10 mg PO DAILY [facility] Last Admin: 11/01/18 09:15 Dose: 10 mg Artificial Tears (Artificial Tears) 0 ml OU BID [facility] Last Admin: 11/01/18 09:17 Dose: 2 drop Heparin Sodium (Porcine) (Heparin) 5,000 units SC Q8 [facility] Last Admin: 11/01/18 13:45 Dose: 5,000 units Hydralazine HCl (Apresoline) 50 mg PO BID [facility] Last Admin: 11/01/18 09:15 Dose: 50 mg Hydrochlorothiazide (Hydrodiuril) 25 mg PO DAILY [facility] Last Admin: 11/01/18 09:16 Dose: 25 mg Metronidazole (Flagyl) 500 mg in 100 mls @ 100 mls/hr IVPB Q8H [facility]KA; Protocol Last Admin: 11/01/18 10:22 Dose: 100 mls/hr Meropenem 500 mg/ Sodium (Chloride) 100 mls @ 100 mls/hr IVPB Q12H [facility]RIKA; Protocol Last Admin: 11/01/18 13:44 Dose: 100 mls/hr Insulin Aspart (Novolog) 0 unit SC ACHS ERIKA; Protocol Last Admin: 11/01/18 12:30 Dose: 3 unit Losartan Potassium (Cozaar) 25 mg PO DAILY [facility] Last Admin: 11/01/18 09:16 Dose: 25 mg Metoprolol Succinate (Toprol Xl) 100 mg PO DAILY [facility] Last Admin: 11/01/18 09:16 Dose: 100 mg Pantoprazole Sodium (Protonix Ec Tab) 40 mg PO DAILY [facility] Last Admin: 11/01/18 09:16 Dose: 40 mg - Labs Labs: 11/01/18 07:34 11/01/18 07:34 PT 15.2 SECONDS (9.7-12.2) H 10/27/18 03:32 INR 1.4 10/27/18 03:32 APTT 66 SECONDS (21-34) H 10/27/18 03:32 - Head Exam Head Exam: NORMAL INSPECTION - Eye Exam Eye Exam: Normal appearance - ENT Exam ENT Exam: Mucous Membranes Moist - Respiratory Exam Respiratory Exam: Clear to Ausculation Bilateral - Cardiovascular Exam Cardiovascular Exam: REGULAR RHYTHM, +S1, +S2 - GI/Abdominal Exam GI & Abdominal Exam: Soft, Tenderness, Normal Bowel Sounds - Extremities Exam Extremities Exam: Pedal Edema - Neurological Exam Neurological Exam: Alert, Oriented x3 Assessment and Plan (1) Abdominal pain Status: Acute (2) Acute appendicitis with rupture Status: Acute (3) CVA (cerebral vascular accident) Status: Acute (4) Diabetes mellitus Status: Chronic (5) RILEY (acute kidney injury) Status: Acute (6) Acute respiratory failure with hypercapnia Status: Acute - Assessment and Plan (Free Text) Plan: Continue antibiotics Surgery follow-up IV PPI Metoprolol 100 mg daily Norvasc 10 mg daily Hydrochlorothiazide 25 mg daily Accu-Chek Insulin coverage Follow creatinine Follow electrolytes DVT/GI prophylax
--- NOTE | 2018-11-01 18:14 | CP.PCM.PN ---
Subjective - Date & Time of Evaluation Date of Evaluation: 11/01/18 Time of Evaluation: 08:45 - Subjective Subjective: clinically same Objective - Vital Signs/Intake and Output Vital Signs (last 24 hours): Temp Pulse Resp BP Pulse Ox 98.7 F 89 20 164/81 H 95 11/01/18 15:00 11/01/18 15:00 11/01/18 15:00 11/01/18 15:00 11/01/18 15:00 Intake and Output: 11/01/18 11/01/18 06:59 18:59 Intake Total 550 Balance 550 - Medications Medications: Current Medications Amlodipine Besylate (Norvasc) 10 mg PO DAILY [facility] Last Admin: 11/01/18 09:15 Dose: 10 mg Artificial Tears (Artificial Tears) 0 ml OU BID [facility] Last Admin: 11/01/18 17:32 Dose: 2 drop Heparin Sodium (Porcine) (Heparin) 5,000 units SC Q8 [facility] Last Admin: 11/01/18 13:45 Dose: 5,000 units Hydralazine HCl (Apresoline) 50 mg PO BID [facility] Last Admin: 11/01/18 17:31 Dose: 50 mg Hydrochlorothiazide (Hydrodiuril) 25 mg PO DAILY [facility] Last Admin: 11/01/18 09:16 Dose: 25 mg Metronidazole (Flagyl) 500 mg in 100 mls @ 100 mls/hr IVPB Q8H [facility]; Protocol Last Admin: 11/01/18 10:22 Dose: 100 mls/hr Meropenem 500 mg/ Sodium (Chloride) 100 mls @ 100 mls/hr IVPB Q12H [facility]; Protocol Last Admin: 11/01/18 13:44 Dose: 100 mls/hr Insulin Aspart (Novolog) 0 unit SC ACHS [facility]; Protocol Last Admin: 11/01/18 17:31 Dose: 3 unit Losartan Potassium (Cozaar) 25 mg PO DAILY [facility] Last Admin: 11/01/18 09:16 Dose: 25 mg Metoprolol Succinate (Toprol Xl) 100 mg PO DAILY [facility] Last Admin: 11/01/18 09:16 Dose: 100 mg Pantoprazole Sodium (Protonix Ec Tab) 40 mg PO DAILY [facility] Last Admin: 11/01/18 09:16 Dose: 40 mg - Labs Labs: 11/01/18 07:34 12/21/18 07:34 PT 15.2 SECONDS (9.7-12.2) H 10/27/18 03:32 INR 1.4 10/27/18 03:32 APTT 66 SECONDS (21-34) H 10/27/18 03:32
--- NOTE | 2018-11-01 18:16 | CP.PCM.PN ---
Subjective - Date & Time of Evaluation Date of Evaluation: 11/01/18 Time of Evaluation: 09:00 - Subjective Subjective: afeb awake alert Nad Objective - Vital Signs/Intake and Output Vital Signs (last 24 hours): Temp Pulse Resp BP Pulse Ox 98.7 F 89 20 164/81 H 95 11/01/18 15:00 11/01/18 15:00 11/01/18 15:00 11/01/18 15:00 11/01/18 15:00 Intake and Output: 11/01/18 11/01/18 06:59 18:59 Intake Total 550 Balance 550 - Medications Medications: Current Medications Amlodipine Besylate (Norvasc) 10 mg PO DAILY [facility] Last Admin: 11/01/18 09:15 Dose: 10 mg Artificial Tears (Artificial Tears) 0 ml OU BID [facility] Last Admin: 11/01/18 17:32 Dose: 2 drop Heparin Sodium (Porcine) (Heparin) 5,000 units SC Q8 [facility] Last Admin: 11/01/18 13:45 Dose: 5,000 units Hydralazine HCl (Apresoline) 50 mg PO BID [facility] Last Admin: 11/01/18 17:31 Dose: 50 mg Hydrochlorothiazide (Hydrodiuril) 25 mg PO DAILY [facility] Last Admin: 11/01/18 09:16 Dose: 25 mg Metronidazole (Flagyl) 500 mg in 100 mls @ 100 mls/hr IVPB Q8H [facility]; Protocol Last Admin: 11/01/18 10:22 Dose: 100 mls/hr Meropenem 500 mg/ Sodium (Chloride) 100 mls @ 100 mls/hr IVPB Q12H [facility]; Protocol Last Admin: 11/01/18 13:44 Dose: 100 mls/hr Insulin Aspart (Novolog) 0 unit SC ACHS [facility]; Protocol Last Admin: 11/01/18 17:31 Dose: 3 unit Losartan Potassium (Cozaar) 25 mg PO DAILY [facility] Last Admin: 11/01/18 09:16 Dose: 25 mg Metoprolol Succinate (Toprol Xl) 100 mg PO DAILY [facility] Last Admin: 11/01/18 09:16 Dose: 100 mg Pantoprazole Sodium (Protonix Ec Tab) 40 mg PO DAILY [facility] Last Admin: 11/01/18 09:16 Dose: 40 mg - Labs Labs: 11/01/18 07:34 11/01/18 07:34 PT 15.2 SECONDS (9.7-12.2) H 10/27/18 03:32 INR 1.4 10/27/18 03:32 APTT 66 SECONDS (21-34) H 10/27/18 03:32 - Constitutional Appears: Non-toxic, Chronically Ill - Head Exam Head Exam: NORMOCEPHALIC - Eye Exam Eye Exam: absent: Scleral icterus - ENT Exam ENT Exam: Mucous Membranes Dry - Neck Exam Neck Exam: absent: Lymphadenopathy - Respiratory Exam Respiratory Exam: Decreased Breath Sounds - Cardiovascular Exam Cardiovascular Exam: REGULAR RHYTHM - GI/Abdominal Exam GI & Abdominal Exam: Distended - Rectal Exam Rectal Exam: Deferred - Exam Exam: NORMAL INSPECTION - Extremities Exam Extremities Exam: absent: Pedal Edema - Back Exam Back Exam: absent: CVA tenderness (L), CVA tenderness (R) - Neurological Exam Neurological Exam: Alert, Awake, Oriented x3 Assessment and Plan (1) Abdominal pain Status: Acute (2) Acute appendicitis with rupture Status: Acute - Assessment and Plan (Free Text) Assessment: cont iv rx as ordered
[2018-11-02] MEDS: Meropenem 500 MG in Sodium Chloride 0.9% 100 ML IVPB SCH ×2 (01:00→15:18)
[2018-11-02] MEDS: metroNIDAZOLE IV 500 mg/100 ml 500 MG/100 ML BAG IVPB SCH ×3 (03:44→19:04)
[2018-11-02 08:10] LABS: BASO % 0.1 % (0.0-2.0); EOS # 0.1 K/uL (0.0-0.7); EOS % 1.4 % (0.0-4.0); HEMOGLOBIN 10.6 g/dL (12.0-18.0); LYMPH # 0.6 K/uL (1.0-4.3); LYMPH % 7.2 % (20.0-40.0); MEAN CORPUSCULAR HEMOGLOBIN 30.1 pg (27.0-31.0); MEAN CORPUSCULAR HGB CONC 32.4 g/dL (33.0-37.0); MONO # 0.8 K/uL (0.0-0.8); MONO % 10.2 % (0.0-10.0); NEUT # 6.5 K/uL (1.8-7.0); NEUT % 81.1 % (50.0-75.0); PLATELET COUNT 83 K/uL (130-400); RBC 3.51 Mil/uL (4.40-5.90); RED CELL DISTRIBUTION WIDTH 14.6 % (11.5-14.5)
[2018-11-02 08:25] LABS: ALB/GLOB RATIO 0.9 (1.0-2.1); ALBUMIN 2.6 g/dL (3.5-5.0); CALCIUM 8.2 mg/dl (8.6-10.4)
[2018-11-02] MEDS: (Novolog) Insulin Aspart, Recombinant 100 u/ml 10 ml vial SC SCH ×4 (08:55→21:43)
[2018-11-02] MEDS: Metoprolol Succinate 100 mg XL Tab PO SCH (10:40)
[2018-11-02] MEDS: Pantoprazole 40 mg EC Tab PO SCH (10:40)
[2018-11-02] MEDS: Aritificial Tears (15ml) OU SCH ×2 (10:41→17:28)
[2018-11-02 11:42] LABS: BANDS 1 % (0-2); EOSINOPHIL 2 % (0-4); LYMPHOCYTE 7 % (20-40); MONOCYTE 10 % (0-10); NEUTROPHIL 80 % (50-75); PLATELET ESTIMATE DECREASED (NORMAL); TOTAL CELLS COUNTED 100
[2018-11-02 11:45] LABS: ANISOCYTOSIS SLIGHT
[2018-11-02 11:46] LABS: LARGE PLATELETS PRESENT; POIKILOCYTOSIS SLIGHT; SCHISTOCYTES SLIGHT; TOXIC GRANULATION PRESENT
[2018-11-02 11:47] LABS: POLYCHROMIC SLIGHT
[2018-11-02 11:48] LABS: OVALOCYTES SLIGHT
--- NOTE | 2018-11-02 14:00 | CP.PCM.PN ---
Subjective - Date & Time of Evaluation Date of Evaluation: 11/02/18 Time of Evaluation: 13:58 - Subjective Subjective: Pt is seen and examined No events overnight Reports improved abdominal pain Objective - Vital Signs/Intake and Output Vital Signs (last 24 hours): Temp Pulse Resp BP Pulse Ox 98.7 F 77 20 150/70 97 11/02/18 07:00 11/02/18 07:00 11/02/18 07:00 11/02/18 07:00 11/02/18 07:00 Intake and Output: 11/02/18 11/02/18 06:59 18:59 Intake Total 300 Output Total 200 Balance 100 - Medications Medications: Current Medications Amlodipine Besylate (Norvasc) 10 mg PO DAILY [facility] Last Admin: 11/02/18 10:41 Dose: 10 mg Artificial Tears (Artificial Tears) 0 ml OU BID [facility] Last Admin: 11/02/18 10:41 Dose: 2 drop Heparin Sodium (Porcine) (Heparin) 5,000 units SC Q8 [facility] Last Admin: 11/02/18 13:22 Dose: 5,000 units Hydralazine HCl (Apresoline) 50 mg PO BID [facility] Last Admin: 11/02/18 10:40 Dose: 50 mg Hydrochlorothiazide (Hydrodiuril) 25 mg PO DAILY [facility] Last Admin: 11/02/18 10:41 Dose: 25 mg Metronidazole (Flagyl) 500 mg in 100 mls @ 100 mls/hr IVPB Q8H [facility]; Protocol Last Admin: 11/02/18 10:41 Dose: 100 mls/hr Meropenem 500 mg/ Sodium (Chloride) 100 mls @ 100 mls/hr IVPB Q12H [facility]; Protocol Last Admin: 11/02/18 01:00 Dose: 100 mls/hr Insulin Aspart (Novolog) 0 unit SC ACHS [facility]; Protocol Last Admin: 11/02/18 13:21 Dose: 3 unit Losartan Potassium (Cozaar) 25 mg PO DAILY [facility] Last Admin: 11/02/18 10:40 Dose: 25 mg Metoprolol Succinate (Toprol Xl) 100 mg PO DAILY [facility] Last Admin: 11/02/18 10:40 Dose: 100 mg Pantoprazole Sodium (Protonix Ec Tab) 40 mg PO DAILY [facility] Last Admin: 11/02/18 10:40 Dose: 40 mg - Labs Labs: 11/02/18 07:58 11/02/18 08:01 PT 15.2 SECONDS (9.7-12.2) H 10/27/18 03:32 INR 1.4 10/27/18 03:32 APTT 66 SECONDS (21-34) H 10/27/18 03:32 - Head Exam Head Exam: NORMAL INSPECTION - Eye Exam Eye Exam: Normal appearance - ENT Exam ENT Exam: Mucous Membranes Moist - Respiratory Exam Respiratory Exam: Decreased Breath Sounds - Cardiovascular Exam Cardiovascular Exam: REGULAR RHYTHM, +S1, +S2 - GI/Abdominal Exam GI & Abdominal Exam: Soft, Normal Bowel Sounds - Neurological Exam Neurological Exam: Alert, Oriented x3 Assessment and Plan (1) Abdominal pain Status: Acute (2) Acute appendicitis with rupture Status: Acute (3) CVA (cerebral vascular accident) Status: Acute (4) Diabetes mellitus Status: Chronic (5) RILEY (acute kidney injury) Status: Resolved (6) Acute respiratory failure with hypercapnia Status: Resolved - Assessment and Plan (Free Text) Plan: Continue ABx Accucheck Insulin coverage Supportive care d/c planning DVT/GI prophalaxis
--- NOTE | 2018-11-02 21:09 | CP.PCM.PN ---
Subjective - Date & Time of Evaluation Date of Evaluation: 11/02/18 Time of Evaluation: 08:30 - Subjective Subjective: clinically same Objective - Vital Signs/Intake and Output Vital Signs (last 24 hours): Temp Pulse Resp BP Pulse Ox 97.9 F 80 20 159/76 H 97 11/02/18 15:00 11/02/18 17:34 11/02/18 15:00 11/02/18 17:34 11/02/18 15:00 Intake and Output: 11/02/18 11/03/18 18:59 06:59 Intake Total 350 Output Total 500 Balance -150 - Medications Medications: Current Medications Amlodipine Besylate (Norvasc) 10 mg PO DAILY [facility] Last Admin: 11/02/18 10:41 Dose: 10 mg Artificial Tears (Artificial Tears) 0 ml OU BID [facility] Last Admin: 11/02/18 17:28 Dose: 1 drop Hydralazine HCl (Apresoline) 50 mg PO BID [facility] Last Admin: 11/02/18 17:29 Dose: 50 mg Hydrochlorothiazide (Hydrodiuril) 25 mg PO DAILY [facility] Last Admin: 11/02/18 10:41 Dose: 25 mg Metronidazole (Flagyl) 500 mg in 100 mls @ 100 mls/hr IVPB Q8H [facility]; Protocol Last Admin: 11/02/18 19:04 Dose: 100 mls/hr Meropenem 500 mg/ Sodium (Chloride) 100 mls @ 100 mls/hr IVPB Q12H [facility]; Protocol Last Admin: 11/02/18 15:18 Dose: 100 mls/hr Insulin Aspart (Novolog) 0 unit SC ACHS [facility]; Protocol Last Admin: 11/02/18 17:35 Dose: 2 unit Losartan Potassium (Cozaar) 25 mg PO DAILY [facility] Last Admin: 11/02/18 10:40 Dose: 25 mg Metoprolol Succinate (Toprol Xl) 100 mg PO DAILY [facility] Last Admin: 11/02/18 10:40 Dose: 100 mg Pantoprazole Sodium (Protonix Ec Tab) 40 mg PO DAILY [facility] Last Admin: 11/02/18 10:40 Dose: 40 mg - Labs Labs: 11/02/18 07:58 11/02/18 08:01 PT 15.2 SECONDS (9.7-12.2) H 10/27/18 03:32 INR 1.4 10/27/18 03:32 APTT 66 SECONDS (21-34) H 10/27/18 03:32
[2018-11-03] MEDS: Meropenem 500 MG in Sodium Chloride 0.9% 100 ML IVPB SCH ×2 (02:02→13:44)
[2018-11-03] MEDS: metroNIDAZOLE IV 500 mg/100 ml 500 MG/100 ML BAG IVPB SCH ×3 (02:03→18:56)
[2018-11-03 08:32] LABS: BASO % 0.2 % (0.0-2.0); EOS # 0.1 K/uL (0.0-0.7); EOS % 1.8 % (0.0-4.0); HEMOGLOBIN 10.7 g/dL (12.0-18.0); LYMPH # 0.6 K/uL (1.0-4.3); LYMPH % 7.6 % (20.0-40.0); MEAN CORPUSCULAR HEMOGLOBIN 30.5 pg (27.0-31.0); MEAN CORPUSCULAR HGB CONC 33.2 g/dL (33.0-37.0); MEAN PLATELET VOLUME 9.2 fL (7.2-11.7); MONO # 0.8 K/uL (0.0-0.8); MONO % 10.3 % (0.0-10.0); NEUT # 6.4 K/uL (1.8-7.0); NEUT % 80.1 % (50.0-75.0); NRBC % 0.1 % (0.0-2.0); PLATELET COUNT 76 K/uL (130-400); RBC 3.49 Mil/uL (4.40-5.90); RED CELL DISTRIBUTION WIDTH 14.4 % (11.5-14.5)
[2018-11-03] MEDS: (Novolog) Insulin Aspart, Recombinant 100 u/ml 10 ml vial SC SCH ×4 (08:40→22:41)
[2018-11-03 09:08] LABS: ALB/GLOB RATIO 0.9 (1.0-2.1); ALBUMIN 2.6 g/dL (3.5-5.0); CALCIUM 8.2 mg/dl (8.6-10.4)
[2018-11-03 10:24] LABS: ANISOCYTOSIS SLIGHT; BANDS 1 % (0-2); EOSINOPHIL 1 % (0-4); LYMPHOCYTE 9 % (20-40); METAMYELOCYTE 1 % (0-0); MONOCYTE 7 % (0-10); NEUTROPHIL 81 % (50-75); PLATELET CLUMPS PRESENT; PLATELET ESTIMATE DECREASED (NORMAL); TOTAL CELLS COUNTED 100
[2018-11-03] MEDS: Pantoprazole 40 mg EC Tab PO SCH (11:03)
[2018-11-03] MEDS: Metoprolol Succinate 100 mg XL Tab PO SCH (11:03)
[2018-11-03] MEDS: Aritificial Tears (15ml) OU SCH ×2 (11:04→18:51)
--- NOTE | 2018-11-03 14:47 | CP.PCM.PN ---
Subjective - Date & Time of Evaluation Date of Evaluation: 11/03/18 Time of Evaluation: 09:00 - Subjective Subjective: improving on IV antibiotics afeb Objective - Vital Signs/Intake and Output Vital Signs (last 24 hours): Temp Pulse Resp BP Pulse Ox 97.9 F 79 20 146/68 96 11/03/18 07:00 11/03/18 07:17 11/03/18 07:00 11/03/18 07:00 11/03/18 07:00 Intake and Output: 11/03/18 11/03/18 06:59 18:59 Intake Total 620 Output Total 800 Balance -180 - Medications Medications: Current Medications Amlodipine Besylate (Norvasc) 10 mg PO DAILY [facility] Last Admin: 11/03/18 11:03 Dose: 10 mg Artificial Tears (Artificial Tears) 0 ml OU BID [facility] Last Admin: 11/03/18 11:04 Dose: 2 drop Hydralazine HCl (Apresoline) 50 mg PO BID [facility] Last Admin: 11/03/18 11:03 Dose: 50 mg Hydrochlorothiazide (Hydrodiuril) 25 mg PO DAILY [facility] Last Admin: 11/03/18 11:03 Dose: 25 mg Metronidazole (Flagyl) 500 mg in 100 mls @ 100 mls/hr IVPB Q8H [facility]; Protocol Last Admin: 11/03/18 11:04 Dose: 100 mls/hr Meropenem 500 mg/ Sodium (Chloride) 100 mls @ 100 mls/hr IVPB Q12H [facility]; Protocol Last Admin: 11/03/18 13:44 Dose: 100 mls/hr Insulin Aspart (Novolog) 0 unit SC ACHS [facility]; Protocol Last Admin: 11/03/18 13:44 Dose: 4 unit Losartan Potassium (Cozaar) 25 mg PO DAILY [facility] Last Admin: 11/03/18 11:03 Dose: 25 mg Metoprolol Succinate (Toprol Xl) 100 mg PO DAILY [facility] Last Admin: 11/03/18 11:03 Dose: 100 mg Pantoprazole Sodium (Protonix Ec Tab) 40 mg PO DAILY [facility] 234 B[facility]S [facility] Last Admin: 11/03/18 11:03 Dose: 40 mg - Labs Labs: 11/03/18 08:14 11/03/18 08:14 PT 15.2 SECONDS (9.7-12.2) H 10/27/18 03:32 INR 1.4 10/27/18 03:32 APTT 66 SECONDS (21-34) H 10/27/18 03:32 - Constitutional Appears: Non-toxic, Chronically Ill - Head Exam Head Exam: NORMOCEPHALIC - Eye Exam Eye Exam: absent: Scleral icterus - ENT Exam ENT Exam: Mucous Membranes Dry - Neck Exam Neck Exam: absent: Lymphadenopathy - Respiratory Exam Respiratory Exam: Decreased Breath Sounds - Cardiovascular Exam Cardiovascular Exam: REGULAR RHYTHM - GI/Abdominal Exam GI & Abdominal Exam: Distended Assessment and Plan (1) Abdominal pain Status: Acute (2) Acute appendicitis with rupture Status: Acute - Assessment and Plan (Free Text) Assessment: cont rx
--- NOTE | 2018-11-03 15:30 | CP.PCM.PN ---
Subjective - Date & Time of Evaluation Date of Evaluation: 11/03/18 Time of Evaluation: 15:30 Objective - Vital Signs/Intake and Output Vital Signs (last 24 hours): Temp Pulse Resp BP Pulse Ox 97.9 F 79 20 146/68 96 11/03/18 07:00 11/03/18 07:17 11/03/18 07:00 11/03/18 07:00 11/03/18 07:00 Intake and Output: 11/03/18 11/03/18 06:59 18:59 Intake Total 620 Output Total 800 Balance -180 - Medications Medications: Current Medications Amlodipine Besylate (Norvasc) 10 mg PO DAILY [facility] Last Admin: 11/03/18 11:03 Dose: 10 mg Artificial Tears (Artificial Tears) 0 ml OU BID [facility] Last Admin: 11/03/18 11:04 Dose: 2 drop Hydralazine HCl (Apresoline) 50 mg PO BID [facility] Last Admin: 11/03/18 11:03 Dose: 50 mg Hydrochlorothiazide (Hydrodiuril) 25 mg PO DAILY [facility] Last Admin: 11/03/18 11:03 Dose: 25 mg Metronidazole (Flagyl) 500 mg in 100 mls @ 100 mls/hr IVPB Q8H [facility]; Protocol Last Admin: 11/03/18 11:04 Dose: 100 mls/hr Meropenem 500 mg/ Sodium (Chloride) 100 mls @ 100 mls/hr IVPB Q12H [facility]; Protocol Last Admin: 11/03/18 13:44 Dose: 100 mls/hr Insulin Aspart (Novolog) 0 unit SC ACHS [facility]; Protocol Last Admin: 11/03/18 13:44 Dose: 4 unit Losartan Potassium (Cozaar) 25 mg PO DAILY [facility] Last Admin: 11/03/18 11:03 Dose: 25 mg Metoprolol Succinate (Toprol Xl) 100 mg PO DAILY [facility] Last Admin: 11/03/18 11:03 Dose: 100 mg Pantoprazole Sodium (Protonix Ec Tab) 40 mg PO DAILY [facility] Last Admin: 11/03/18 11:03 Dose: 40 mg - Labs Labs: 11/03/18 08:14 11/03/18 08:14 PT 15.2 SECONDS (9.7-12.2) H 10/27/18 03:32 INR 1.4 10/27/18 03:32 APTT 66 SECONDS (21-34) H 10/27/18 03:32 Assessment and Plan (1) Abdominal pain Status: Acute (2) Acute appendicitis with rupture Status: Acute (3) CVA (cerebral vascular accident) Status: Acute (4) Diabetes mellitus Status: Chronic (5) RILEY (acute kidney injury) Status: Resolved (6) Acute respiratory failure with hypercapnia Status: Resolved
[2018-11-03 16:01] LABS: CK-MB 0.48 ng/mL (0.0-3.38)
--- NOTE | 2018-11-03 21:23 | CP.PCM.PN ---
Subjective - Date & Time of Evaluation Date of Evaluation: 11/03/18 Time of Evaluation: 09:00 - Subjective Subjective: clinically same Objective - Vital Signs/Intake and Output Vital Signs (last 24 hours): Temp Pulse Resp BP Pulse Ox 98.7 F 82 20 150/65 95 11/03/18 15:00 11/03/18 18:00 11/03/18 15:00 11/03/18 15:00 11/03/18 15:00 Intake and Output: 11/03/18 11/04/18 18:59 06:59 Intake Total 300 Balance 300 - Medications Medications: Current Medications Amlodipine Besylate (Norvasc) 10 mg PO DAILY [facility] Last Admin: 11/03/18 11:03 Dose: 10 mg Artificial Tears (Artificial Tears) 0 ml OU BID [facility] Last Admin: 11/03/18 18:51 Dose: 1 drop Heparin Sodium (Porcine) (Heparin) 5,000 units SC Q8 [facility] Last Admin: 11/03/18 21:07 Dose: 5,000 units Hydralazine HCl (Apresoline) 50 mg PO BID [facility] Last Admin: 11/03/18 17:53 Dose: 50 mg Hydrochlorothiazide (Hydrodiuril) 25 mg PO DAILY [facility] Last Admin: 11/03/18 11:03 Dose: 25 mg Metronidazole (Flagyl) 500 mg in 100 mls @ 100 mls/hr IVPB Q8H [facility]; Protocol Last Admin: 11/03/18 18:56 Dose: 100 mls/hr Meropenem 500 mg/ Sodium (Chloride) 100 mls @ 100 mls/hr IVPB Q12H [facility]; Protocol Last Admin: 11/03/18 13:44 Dose: 100 mls/hr Insulin Aspart (Novolog) 0 unit SC ACHS [facility]; Protocol Last Admin: 11/03/18 17:53 Dose: 4 unit Losartan Potassium (Cozaar) 25 mg PO DAILY [facility] Last Admin: 11/03/18 11:03 Dose: 25 mg Metoprolol Succinate (Toprol Xl) 100 mg PO DAILY [facility] Last Admin: 11/03/18 11:03 Dose: 100 mg Pantoprazole Sodium (Protonix Ec Tab) 40 mg PO DAILY [facility] Last Admin: 11/03/18 11:03 Dose: 40 mg - Labs Labs: 11/03/18 08:14 11/03/18 08:14 PT 15.2 SECONDS (9.7-12.2) H 10/27/18 03:32 INR 1.4 10/27/18 03:32 APTT 66 SECONDS (21-34) H 10/27/18 03:32
[2018-11-03 22:31] LABS: CK-MB 0.64 ng/mL (0.0-3.38)
[2018-11-04] MEDS: Meropenem 500 MG in Sodium Chloride 0.9% 100 ML IVPB SCH ×2 (01:35→13:28)
[2018-11-04] MEDS: metroNIDAZOLE IV 500 mg/100 ml 500 MG/100 ML BAG IVPB SCH ×3 (02:51→21:32)
[2018-11-04 03:31] LABS: CK-MB 0.48 ng/mL (0.0-3.38)
[2018-11-04 06:31] LABS: BASO % 0.2 % (0.0-2.0); EOS # 0.2 K/uL (0.0-0.7); EOS % 1.9 % (0.0-4.0); HEMOGLOBIN 10.7 g/dL (12.0-18.0); LYMPH # 0.7 K/uL (1.0-4.3); LYMPH % 8.6 % (20.0-40.0); MEAN CELL VOLUME 91.6 fL (80.0-94.0); MEAN CORPUSCULAR HEMOGLOBIN 29.6 pg (27.0-31.0); MEAN CORPUSCULAR HGB CONC 32.3 g/dL (33.0-37.0); MEAN PLATELET VOLUME 8.7 fL (7.2-11.7); MONO # 0.9 K/uL (0.0-0.8); MONO % 11.6 % (0.0-10.0); NEUT # 6.2 K/uL (1.8-7.0); NEUT % 77.7 % (50.0-75.0); NRBC % 0.1 % (0.0-2.0); PLATELET COUNT 86 K/uL (130-400); RBC 3.61 Mil/uL (4.40-5.90); RED CELL DISTRIBUTION WIDTH 14.3 % (11.5-14.5)
[2018-11-04 06:49] LABS: ALB/GLOB RATIO 0.9 (1.0-2.1); ALBUMIN 2.6 g/dL (3.5-5.0); ALT/SGPT 30 U/L (21-72); AST/SGOT 33 U/L (17-59); BLOOD UREA NITROGEN 23 mg/dL (9-20); CALCIUM 8.2 mg/dl (8.6-10.4); GFR NON-AFRICAN AMERICAN 54
[2018-11-04] MEDS: (Novolog) Insulin Aspart, Recombinant 100 u/ml 10 ml vial SC SCH ×4 (08:25→21:32)
[2018-11-04 08:59] LABS: EOSINOPHIL 3 % (0-4); LYMPHOCYTE 9 % (20-40); MONOCYTE 12 % (0-10); NEUTROPHIL 76 % (50-75); PLATELET CLUMPS PRESENT; PLATELET ESTIMATE DECREASED (NORMAL); TOTAL CELLS COUNTED 100
[2018-11-04 09:00] LABS: ANISOCYTOSIS SLIGHT; HYPOCHROMIC SLIGHT; POIKILOCYTOSIS SLIGHT
[2018-11-04 09:01] LABS: LARGE PLATELETS PRESENT
[2018-11-04] MEDS: Metoprolol Succinate 100 mg XL Tab PO SCH (10:03)
[2018-11-04] MEDS: Aritificial Tears (15ml) OU SCH ×2 (10:04→17:24)
[2018-11-04] MEDS: Pantoprazole 40 mg EC Tab PO SCH (10:04)
--- NOTE | 2018-11-04 13:45 | CP.PCM.PN ---
Subjective - Date & Time of Evaluation Date of Evaluation: 11/04/18 Time of Evaluation: 13:45 Objective - Vital Signs/Intake and Output Vital Signs (last 24 hours): Temp Pulse Resp BP Pulse Ox 97.8 F 75 18 154/77 H 97 11/04/18 07:07 11/04/18 07:07 11/04/18 07:07 11/04/18 07:07 11/04/18 07:07 Intake and Output: 11/04/18 11/04/18 06:59 18:59 Intake Total 480 Output Total 100 450 Balance -100 30 - Medications Medications: Current Medications Amlodipine Besylate (Norvasc) 10 mg PO DAILY [facility] Last Admin: 11/04/18 10:04 Dose: 10 mg Artificial Tears (Artificial Tears) 0 ml OU BID [facility] Last Admin: 11/04/18 10:04 Dose: 1 drop Heparin Sodium (Porcine) (Heparin) 5,000 units SC Q8 [facility] Last Admin: 11/04/18 13:33 Dose: 5,000 units Hydralazine HCl (Apresoline) 50 mg PO BID [facility] Last Admin: 11/04/18 10:04 Dose: 50 mg Hydrochlorothiazide (Hydrodiuril) 25 mg PO DAILY [facility] Last Admin: 11/04/18 10:03 Dose: 25 mg Metronidazole (Flagyl) 500 mg in 100 mls @ 100 mls/hr IVPB Q8H [facility]; Protocol Last Admin: 11/04/18 11:35 Dose: 100 mls/hr Meropenem 500 mg/ Sodium (Chloride) 100 mls @ 100 mls/hr IVPB Q12H [facility]; Prot ocol Last Admin: 11/04/18 13:28 Dose: 100 mls/hr Insulin Aspart (Novolog) 0 unit SC ACHS [facility]; Protocol Last Admin: 11/04/18 12:47 Dose: 2 unit Losartan Potassium (Cozaar) 25 mg PO DAILY [facility] Last Admin: 11/04/18 10:04 Dose: 25 mg Metoprolol Succinate (Toprol Xl) 100 mg PO DAILY [facility] Last Admin: 11/04/18 10:03 Dose: 100 mg Pantoprazole Sodium (Protonix Ec Tab) 40 mg PO DAILY [facility] Last Admin: 11/04/18 10:04 Dose: 40 mg - Labs Labs: 11/04/18 06:23 11/04/18 06:23 PT 15.2 SECONDS (9.7-12.2) H 10/27/18 03:32 INR 1.4 10/27/18 03:32 APTT 66 SECONDS (21-34) H 10/27/18 03:32 Assessment and Plan (1) Abdominal pain Status: Acute (2) Acute appendicitis with rupture Status: Acute (3) CVA (cerebral vascular accident) Status: Acute (4) Diabetes mellitus Status: Chronic (5) RILEY (acute kidney injury) Status: Resolved (6) Acute respiratory failure with hypercapnia Status: Resolved
--- NOTE | 2018-11-04 14:33 | CP.PCM.PN ---
Subjective - Date & Time of Evaluation Date of Evaluation: 11/04/18 Time of Evaluation: 14:32 - Subjective Subjective: Pt seen and examined at bedside this morning. No new complaints. Abd pain improved. Tolerating diet. Denies any N/V/D. No Fevers or chills. Denies chest pain and dyspnea Physical Examination - Constitutional Appears: Well, Non-toxic, No Acute Distress - Head Exam Head Exam: ATRAUMATIC, NORMAL INSPECTION, NORMOCEPHALIC - Eye Exam Eye Exam: EOMI, Normal appearance - ENT Exam ENT Exam: Mucous Membranes Moist - Respiratory Exam Respiratory Exam: NORMAL BREATHING PATTERN. absent: Accessory Muscle Use, Wheezes, Respiratory Distress - Cardiovascular Exam Cardiovascular Exam: RRR. absent: JVD - GI/Abdominal Exam GI & Abdominal Exam: Soft. absent: Distended, Firm, Guarding, Rigid, Tenderness, Rebound - Extremities Exam Extremities Exam: Normal Inspection. absent: Calf Tenderness - Neurological Exam Neurological Exam: Alert, Awake, Oriented x3 - Psychiatric Exam Psychiatric exam: Normal Affect, Normal Mood - Skin Skin Exam: Dry, Intact, Normal Color, Warm Assessment and Plan - Assessment and Plan (Free Text) Assessment: 78yo M with ruptured Appendicitis, hypercapnic respiratory failure (resolved), a nd acute on chronic renal failure (resolving) Plan: No plan for surgery Further cardiac management as out patient Thank you Objective - Vital Signs/Intake and Output Vital Signs (last 24 hours): Temp Pulse Resp BP Pulse Ox 97.8 F 75 18 154/77 H 97 11/04/18 07:07 11/04/18 07:07 11/04/18 07:07 11/04/18 07:07 11/04/18 07:07 Intake and Output: 11/04/18 11/04/18 06:59 18:59 Intake Total 480 Output Total 100 450 Balance -100 30 - Medications Medications: Current Medications Amlodipine Besylate (Norvasc) 10 mg PO DAILY [facility] Last Admin: 11/04/18 10:04 Dose: 10 mg Artificial Tears (Artificial Tears) 0 ml OU BID [facility] Last Admin: 11/04/18 10:04 Dose: 1 drop Heparin Sodium (Porcine) (Heparin) 5,000 units SC Q8 [facility] Last Admin: 11/04/18 13:33 Dose: 5,000 units Hydralazine HCl (Apresoline) 50 mg PO BID [facility] Last Admin: 11/04/18 10:04 Dose: 50 mg Hydrochlorothiazide (Hydrodiuril) 25 mg PO DAILY [facility] Last Admin: 11/04/18 10:03 Dose: 25 mg Metronidazole (Flagyl) 500 mg in 100 mls @ 100 mls/hr IVPB Q8H [facility]; Protocol Last Admin: 11/04/18 11:35 Dose: 100 mls/hr Meropenem 500 mg/ Sodium (Chloride) 100 mls @ 100 mls/hr IVPB Q12H [facility]; Protocol Last Admin: 11/04/18 13:28 Dose: 100 mls/hr Insulin Aspart (Novolog) 0 unit SC ACHS [facility]; Protocol Last Admin: 11/04/18 12:47 Dose: 2 unit Losartan Potassium (Cozaar) 25 mg PO DAILY [facility] Last Admin: 11/04/18 10:04 Dose: 25 mg Metoprolol Succinate (Toprol Xl) 100 mg PO DAILY [facility] Last Admin: 11/04/18 10:03 Dose: 100 mg Pantoprazole Sodium (Protonix Ec Tab) 40 mg PO DAILY [facility] Last Admin: 11/04/18 10:04 Dose: 40 mg - Labs Labs: 11/04/18 06:23 11/04/18 06:23 PT 15.2 SECONDS (9.7-12.2) H 10/27/18 03:32 INR 1.4 10/27/18 03:32 APTT 66 SECONDS (21-34) H 10/27/18 03:32
--- NOTE | 2018-11-04 14:40 | CP.PCM.PN ---
Subjective - Date & Time of Evaluation Date of Evaluation: 11/04/18 Time of Evaluation: 09:00 - Subjective Subjective: clinically same Objective - Vital Signs/Intake and Output Vital Signs (last 24 hours): Temp Pulse Resp BP Pulse Ox 97.8 F 75 18 154/77 H 97 11/04/18 07:07 11/04/18 07:07 11/04/18 07:07 11/04/18 07:07 11/04/18 07:07 Intake and Output: 11/04/18 11/04/18 06:59 18:59 Intake Total 480 Output Total 100 450 Balance -100 30 - Medications Medications: Current Medications Amlodipine Besylate (Norvasc) 10 mg PO DAILY [facility] Last Admin: 11/04/18 10:04 Dose: 10 mg Artificial Tears (Artificial Tears) 0 ml OU BID [facility] Last Admin: 11/04/18 10:04 Dose: 1 drop Heparin Sodium (Porcine) (Heparin) 5,000 units SC Q8 [facility] Last Admin: 11/04/18 13:33 Dose: 5,000 units Hydralazine HCl (Apresoline) 50 mg PO BID [facility] Last Admin: 11/04/18 10:04 Dose: 50 mg Hydrochlorothiazide (Hydrodiuril) 25 mg PO DAILY [facility] Last Admin: 11/04/18 10:03 Dose: 25 mg Metronidazole (Flagyl) 500 mg in 100 mls @ 100 mls/hr IVPB Q8H [facility]; Protocol Last Admin: 11/04/18 11:35 Dose: 100 mls/hr Meropenem 500 mg/ Sodium (Chloride) 100 mls @ 100 mls/hr IVPB Q12H [facility]; Protocol Last Admin: 11/04/18 13:28 Dose: 100 mls/hr Insulin Aspart (Novolog) 0 unit SC ACHS [facility]; Protocol Last Admin: 11/04/18 12:47 Dose: 2 unit Losartan Potassium (Cozaar) 25 mg PO DAILY [facility] Last Admin: 11/04/18 10:04 Dose: 25 mg Metoprolol Succinate (Toprol Xl) 100 mg PO DAILY [facility] Last Admin: 11/04/18 10:03 Dose: 100 mg Pantoprazole Sodium (Protonix Ec Tab) 40 mg PO DAILY [facility] Last Admin: 11/04/18 10:04 Dose: 40 mg - Labs Labs: 11/04/18 06:23 11/04/18 06:23 PT 15.2 SECONDS (9.7-12.2) H 10/27/18 03:32 INR 1.4 10/27/18 03:32 APTT 66 SECONDS (21-34) H 10/27/18 03:32 - Constitutional Appears: Well - Head Exam Head Exam: ATRAUMATIC, NORMAL INSPECTION, NORMOCEPHALIC
[2018-11-05] MEDS: Meropenem 500 MG in Sodium Chloride 0.9% 100 ML IVPB SCH ×2 (02:25→13:20)
[2018-11-05] MEDS: metroNIDAZOLE IV 500 mg/100 ml 500 MG/100 ML BAG IVPB SCH ×3 (03:57→19:18)
[2018-11-05 06:57] LABS: BASO % 0.3 % (0.0-2.0); EOS # 0.1 K/uL (0.0-0.7); EOS % 1.4 % (0.0-4.0); HEMOGLOBIN 10.9 g/dL (12.0-18.0); LYMPH # 0.7 K/uL (1.0-4.3); LYMPH % 8.1 % (20.0-40.0); MEAN CELL VOLUME 93.8 fL (80.0-94.0); MEAN CORPUSCULAR HEMOGLOBIN 30.2 pg (27.0-31.0); MEAN CORPUSCULAR HGB CONC 32.1 g/dL (33.0-37.0); MEAN PLATELET VOLUME 10.6 fL (7.2-11.7); MONO # 0.9 K/uL (0.0-0.8); MONO % 10.7 % (0.0-10.0); NEUT # 6.8 K/uL (1.8-7.0); NEUT % 79.5 % (50.0-75.0); NRBC % 0.1 % (0.0-2.0); PLATELET COUNT 75 K/uL (130-400); RBC 3.62 Mil/uL (4.40-5.90); RED CELL DISTRIBUTION WIDTH 14.2 % (11.5-14.5); WHITE BLOOD COUNT 8.6 K/uL (4.8-10.8)
[2018-11-05 07:40] LABS: ALB/GLOB RATIO 0.9 (1.0-2.1); ALBUMIN 2.8 g/dL (3.5-5.0); CALCIUM 8.2 mg/dl (8.6-10.4)
[2018-11-05] MEDS: (Novolog) Insulin Aspart, Recombinant 100 u/ml 10 ml vial SC SCH ×4 (08:15→21:20)
--- NOTE | 2018-11-05 08:32 | CARD ---
APPROVED REPORT Date of service: 11/03/2018 EKG Measurement Heart [id number] <Conclusion> Normal sinus rhythm Inferior infarct, age undetermined Abnormal ECG
--- NOTE | 2018-11-05 08:33 | CARD ---
APPROVED REPORT Date of service: 11/03/2018 EKG Measurement Heart [id number] <Conclusion> Normal sinus rhythm Low voltage QRS Inferior infarct, age undetermined Abnormal ECG
[2018-11-05 09:07] LABS: ANISOCYTOSIS SLIGHT; BANDS 2 % (0-2); LYMPHOCYTE 6 % (20-40); MONOCYTE 10 % (0-10); NEUTROPHIL 82 % (50-75); PLATELET CLUMPS PRESENT; PLATELET ESTIMATE DECREASED (NORMAL); TOTAL CELLS COUNTED 100
[2018-11-05 09:08] LABS: HYPOCHROMIC SLIGHT; LARGE PLATELETS PRESENT; POLYCHROMIC SLIGHT; TOXIC GRANULATION PRESENT
[2018-11-05] MEDS: Aritificial Tears (15ml) OU SCH ×2 (10:00→17:11)
[2018-11-05] MEDS: Metoprolol Succinate 100 mg XL Tab PO SCH (10:01)
[2018-11-05] MEDS: Pantoprazole 40 mg EC Tab PO SCH (10:01)
--- NOTE | 2018-11-05 20:07 | CP.PCM.PN ---
Subjective - Date & Time of Evaluation Date of Evaluation: 11/05/18 Time of Evaluation: 20:06 - Subjective Subjective: t seen and examined at bedside this morning. No new complaints. Abd pain improved. Tolerating diet. Denies any N/V/D. No Fevers or chills. Denies chest pain and dyspnea Physical Examination - Constitutional Appears: Well, Non-toxic, No Acute Distress - Head Exam Head Exam: ATRAUMATIC, NORMAL INSPECTION, NORMOCEPHALIC - Eye Exam Eye Exam: EOMI, Normal appearance - ENT Exam ENT Exam: Mucous Membranes Moist - Respiratory Exam Respiratory Exam: NORMAL BREATHING PATTERN. absent: Accessory Muscle Use, Wheezes, Respiratory Distress - Cardiovascular Exam Cardiovascular Exam: RRR. absent: JVD - GI/Abdominal Exam GI & Abdominal Exam: Soft. absent: Distended, Firm, Guarding, Rigid, Tenderness, Rebound - Extremities Exam Extremities Exam: Normal Inspection. absent: Calf Tenderness - Neurological Exam Neurological Exam: Alert, Awake, Oriented x3 - Psychiatric Exam Psychiatric exam: Normal Affect, Normal Mood - Skin Skin Exam: Dry, Intact, Normal Color, Warm Assessment and Plan - Assessment and Plan (Free Text) Assessment: 78yo M with ruptured Appendicitis, hypercapnic respiratory failure (resolved), and acute on chronic renal failure (resolving) Plan: No plan for surgery Further cardiac management as out patient Objective - Vital Signs/Intake and Output Vital Signs (last 24 hours): Temp Pulse Resp BP Pulse Ox 98.3 F 86 20 156/74 H 96 11/05/18 16:33 11/05/18 16:33 11/05/18 16:33 11/05/18 16:33 11/05/18 16:33 Intake and Output: 11/05/18 11/06/18 18:59 06:59 Intake Total 200 Output Total 500 Balance -300 - Medications Medications: Current Medications Amlodipine Besylate (Norvasc) 10 mg PO DAILY [facility] Last Admin: 11/05/18 10:01 Dose: 10 mg Artificial Tears (Artificial Tears) 0 ml OU BID [facility] Last Admin: 11/05/18 17:11 Dose: 1 drop Heparin Sodium (Porcine) (Heparin) 5,000 units SC Q8 [facility] Last Admin: 11/05/18 13:20 Dose: 5,000 units Hydralazine HCl (Apresoline) 50 mg PO BID [facility] Last Admin: 11/05/18 17:11 Dose: 50 mg Hydrochlorothiazide (Hydrodiuril) 25 mg PO DAILY [facility] Last Admin: 11/05/18 10:01 Dose: 25 mg Metronidazole (Flagyl) 500 mg in 100 mls @ 100 mls/hr IVPB Q8H [facility]; Protocol Last Admin: 11/05/18 19:18 Dose: 100 mls/hr Meropenem 500 mg/ Sodium (Chloride) 100 mls @ 100 mls/hr IVPB Q12H [facility]; Protocol Last Admin: 11/05/18 13:20 Dose: 100 mls/hr Insulin Aspart (Novolog) 0 unit SC ACHS [facility]; Protocol Last Admin: 11/05/18 17:12 Dose: Not Given Losartan Potassium (Cozaar) 25 mg PO DAILY [facility] Last Admin: 11/05/18 10:01 Dose: 25 mg Metoprolol Succinate (Toprol Xl) 100 mg PO DAILY [facility] Last Admin: 11/05/18 10:01 Dose: 100 mg Pantoprazole Sodium (Protonix Ec Tab) 40 mg PO DAILY [facility] Last Admin: 11/05/18 10:01 Dose: 40 mg - Labs Labs: 11/05/18 06:41 11/05/18 06:41 PT 15.2 SECONDS (9.7-12.2) H 10/27/18 03:32 INR 1.4 10/27/18 03:32 APTT 66 SECONDS (21-34) H 10/27/18 03:32
--- NOTE | 2018-11-05 20:24 | CP.PCM.PN ---
Subjective - Date & Time of Evaluation Date of Evaluation: 11/05/18 Time of Evaluation: 08:15 - Subjective Subjective: clinically same Objective - Vital Signs/Intake and Output Vital Signs (last 24 hours): Temp Pulse Resp BP Pulse Ox 98.3 F 86 20 156/74 H 96 11/05/18 16:33 11/05/18 16:33 11/05/18 16:33 11/05/18 16:33 11/05/18 16:33 Intake and Output: 11/05/18 11/06/18 18:59 06:59 Intake Total 200 Output Total 500 Balance -300 - Medications Medications: Current Medications Amlodipine Besylate (Norvasc) 10 mg PO DAILY [facility] Last Admin: 11/05/18 10:01 Dose: 10 mg Artificial Tears (Artificial Tears) 0 ml OU BID [facility] Last Admin: 11/05/18 17:11 Dose: 1 drop Heparin Sodium (Porcine) (Heparin) 5,000 units SC Q8 [facility] Last Admin: 11/05/18 13:20 Dose: 5,000 units Hydralazine HCl (Apresoline) 50 mg PO BID [facility] Last Admin: 11/05/18 17:11 Dose: 50 mg Hydrochlorothiazide (Hydrodiuril) 25 mg PO DAILY [facility] Last Admin: 11/05/18 10:01 Dose: 25 mg Metronidazole (Flagyl) 500 mg in 100 mls @ 100 mls/hr IVPB Q8H [facility]; Protocol Last Admin: 11/05/18 19:18 Dose: 100 mls/hr Meropenem 500 mg/ Sodium (Chloride) 100 mls @ 100 mls/hr IVPB Q12H [facility]; Protocol Last Admin: 11/05/18 13:20 Dose: 100 mls/hr Insulin Aspart (Novolog) 0 unit SC ACHS [facility]; Protocol Last Admin: 11/05/18 17:12 Dose: Not Given Losartan Potassium (Cozaar) 25 mg PO DAILY [facility] Last Admin: 11/05/18 10:01 Dose: 25 mg Metoprolol Succinate (Toprol Xl) 100 mg PO DAILY [facility] Last Admin: 11/05/18 10:01 Dose: 100 mg Pantoprazole Sodium (Protonix Ec Tab) 40 mg PO DAILY [facility] Last Admin: 11/05/18 10:01 Dose: 40 mg - Labs Labs: 11/05/18 06:41 11/05/18 06:41 PT 15.2 SECONDS (9.7-12.2) H 10/27/18 03:32 INR 1.4 10/27/18 03:32 APTT 66 SECONDS (21-34) H 10/27/18 03:32 - Constitutional Appears: Well - Head Exam Head Exam: ATRAUMATIC, NORMAL INSPECTION, NORMOCEPHALIC - Eye Exam Eye Exam: EOMI, Normal appearance, PERRL Pupil Exam: NORMAL ACCOMODATION, PERRL - ENT Exam ENT Exam: Mucous Membranes Moist, Normal Exam - Neck Exam Neck Exam: Full ROM, Normal Inspection. absent: Lymphadenopathy - Respiratory Exam Respiratory Exam: Decreased Breath Sounds - Cardiovascular Exam Cardiovascular Exam: REGULAR RHYTHM, +S1, +S2 - GI/Abdominal Exam GI & Abdominal Exam: Soft, Diminished Bowel Sounds - Rectal Exam Rectal Exam: Deferred
[2018-11-06] MEDS: Meropenem 500 MG in Sodium Chloride 0.9% 100 ML IVPB SCH ×2 (01:45→13:33)
[2018-11-06] MEDS: metroNIDAZOLE IV 500 mg/100 ml 500 MG/100 ML BAG IVPB SCH ×3 (03:29→18:06)
[2018-11-06 06:15] LABS: BASO % 0.2 % (0.0-2.0); EOS # 0.1 K/uL (0.0-0.7); HEMOGLOBIN 11.2 g/dL (12.0-18.0); LYMPH # 0.7 K/uL (1.0-4.3); LYMPH % 7.4 % (20.0-40.0); MEAN CELL VOLUME 91.8 fL (80.0-94.0); MEAN CORPUSCULAR HEMOGLOBIN 29.7 pg (27.0-31.0); MEAN CORPUSCULAR HGB CONC 32.3 g/dL (33.0-37.0); MEAN PLATELET VOLUME 9.3 fL (7.2-11.7); NEUT # 7.3 K/uL (1.8-7.0); NEUT % 80.4 % (50.0-75.0); PLATELET COUNT 87 K/uL (130-400); RBC 3.78 Mil/uL (4.40-5.90); RED CELL DISTRIBUTION WIDTH 14.1 % (11.5-14.5)
[2018-11-06 06:37] LABS: ALB/GLOB RATIO 1.2 (1.0-2.1); ALBUMIN 3.2 g/dL (3.5-5.0); ALT/SGPT 38 U/L (21-72); AST/SGOT 28 U/L (17-59); BLOOD UREA NITROGEN 20 mg/dL (9-20); GFR NON-AFRICAN AMERICAN 59
[2018-11-06 08:37] LABS: EOSINOPHIL 1 % (0-4); LYMPHOCYTE 7 % (20-40); MONOCYTE 10 % (0-10); NEUTROPHIL 82 % (50-75); PLATELET ESTIMATE DECREASED (NORMAL); TOTAL CELLS COUNTED 100
[2018-11-06 08:38] LABS: ANISOCYTOSIS SLIGHT; HYPOCHROMIC SLIGHT; POIKILOCYTOSIS SLIGHT
[2018-11-06] MEDS: Pantoprazole 40 mg EC Tab PO SCH (09:20)
[2018-11-06] MEDS: Aritificial Tears (15ml) OU SCH ×2 (09:20→18:05)
[2018-11-06] MEDS: Metoprolol Succinate 100 mg XL Tab PO SCH (09:20)
[2018-11-06] MEDS: (Novolog) Insulin Aspart, Recombinant 100 u/ml 10 ml vial SC SCH ×4 (09:20→21:37)
--- NOTE | 2018-11-06 11:01 | CP.PCM.PN ---
Subjective - Date & Time of Evaluation Date of Evaluation: 11/06/18 Time of Evaluation: 11:01 Objective - Vital Signs/Intake and Output Vital Signs (last 24 hours): Temp Pulse Resp BP Pulse Ox 98.7 F 85 18 148/72 98 11/06/18 07:00 11/06/18 07:00 11/06/18 07:00 11/06/18 07:00 11/06/18 07:00 Intake and Output: 11/06/18 11/06/18 06:59 18:59 Intake Total 100 Output Total 300 Balance -200 - Medications Medications: Current Medications Amlodipine Besylate (Norvasc) 10 mg PO DAILY [facility] Last Admin: 11/06/18 09:20 Dose: 10 mg Artificial Tears (Artificial Tears) 0 ml OU BID [facility] Last Admin: 11/06/18 09:20 Dose: 1 drop Heparin Sodium (Porcine) (Heparin) 5,000 units SC Q8 [facility] Last Admin: 11/06/18 05:22 Dose: 5,000 units Hydralazine HCl (Apresoline) 50 mg PO BID [facility] Last Admin: 11/06/18 09:20 Dose: 50 mg Hydrochlorothiazide (Hydrodiuril) 25 mg PO DAILY [facility] Last Admin: 11/06/18 09:20 Dose: 25 mg Metronidazole (Flagyl) 500 mg in 100 mls @ 100 mls/hr IVPB Q8H [facility]; Protocol Last Admin: 11/06/18 03:29 Dose: 100 mls/hr Meropenem 500 mg/ Sodium (Chloride) 100 mls @ 100 mls/hr IVPB Q12H [facility]; Protocol Last Admin: 11/06/18 01:45 Dose: 100 mls/hr Insulin Aspart (Novolog) 0 unit SC ACHS [facility]; Protocol Last Admin: 11/06/18 09:20 Dose: 3 unit Losartan Potassium (Cozaar) 25 mg PO DAILY [facility] Last Admin: 11/06/18 09:20 Dose: 25 mg Metoprolol Succinate (Toprol Xl) 100 mg PO DAILY [facility] Last Admin: 11/06/18 09:20 Dose: 100 mg Pantoprazole Sodium (Protonix Ec Tab) 40 mg PO DAILY [facility] Last Admin: 11/06/18 09:20 Dose: 40 mg - Labs Labs: 11/06/18 06:10 11/06/18 06:10 PT 15.2 SECONDS (9.7-12.2) H 10/27/18 03:32 INR 1.4 10/27/18 03:32 APTT 66 SECONDS (21-34) H 10/27/18 03:32 Assessment and Plan (1) Abdominal pain Status: Acute (2) Acute appendicitis with rupture Status: Acute (3) CVA (cerebral vascular accident) Status: Acute (4) Diabetes mellitus Status: Chronic (5) RILEY (acute kidney injury) Status: Resolved (6) Acute respiratory failure with hypercapnia Status: Resolved
--- NOTE | 2018-11-06 15:44 | CP.PCM.PN ---
Subjective - Date & Time of Evaluation Date of Evaluation: 11/06/18 Time of Evaluation: 09:15 - Subjective Subjective: clinically same Objective - Vital Signs/Intake and Output Vital Signs (last 24 hours): Temp Pulse Resp BP Pulse Ox 98.7 F 83 18 148/72 98 11/06/18 07:00 11/06/18 10:00 11/06/18 07:00 11/06/18 07:00 11/06/18 07:00 Intake and Output: 11/06/18 11/06/18 06:59 18:59 Intake Total 100 340 Output Total 300 Balance -200 340 - Medications Medications: Current Medications Amlodipine Besylate (Norvasc) 10 mg PO DAILY [facility] Last Admin: 11/06/18 09:20 Dose: 10 mg Artificial Tears (Artificial Tears) 0 ml OU BID [facility] Last Admin: 11/06/18 09:20 Dose: 1 drop Heparin Sodium (Porcine) (Heparin) 5,000 units SC Q8 [facility] Last Admin: 11/06/18 13:34 Dose: 5,000 units Hydralazine HCl (Apresoline) 50 mg PO BID [facility] Last Admin: 11/06/18 09:20 Dose: 50 mg Hydrochlorothiazide (Hydrodiuril) 25 mg PO DAILY [facility] Last Admin: 11/06/18 09:20 Dose: 25 mg Metronidazole (Flagyl) 500 mg in 100 mls @ 100 mls/hr IVPB Q8H [facility]; Protocol Last Admin: 11/06/18 12:08 Dose: 100 mls/hr Meropenem 500 mg/ Sodium (Chloride) 100 mls @ 100 mls/hr IVPB Q12H [facility]; Protocol Last Admin: 11/06/18 13:33 Dose: 100 mls/hr Insulin Aspart (Novolog) 0 unit SC ACHS [facility]; Protocol Last Admin: 11/06/18 12:08 Dose: 3 unit Losartan Potassium (Cozaar) 25 mg PO DAILY [facility] Last Admin: 11/06/18 09:20 Dose: 25 mg Metoprolol Succinate (Toprol Xl) 100 mg PO DAILY [facility] Last Admin: 11/06/18 09:20 Dose: 100 mg Pantoprazole Sodium (Protonix Ec Tab) 40 mg PO DAILY [facility] Last Admin: 11/06/18 09:20 Dose: 40 mg - Labs Labs: 11/06/18 06:10 11/06/18 06:10 PT 15.2 SECONDS (9.7-12.2) H 10/27/18 03:32 INR 1.4 10/27/18 03:32 APTT 66 SECONDS (21-34) H 10/27/18 03:32 - Constitutional Appears: Well - Head Exam Head Exam: ATRAUMATIC, NORMAL INSPECTION, NORMOCEPHALIC - Eye Exam Eye Exam: EOMI, Normal appearance, PERRL Pupil Exam: NORMAL ACCOMODATION, PERRL - ENT Exam ENT Exam: Mucous Membranes Moist, Normal Exam - Neck Exam Neck Exam: Full ROM, Normal Inspection. absent: Lymphadenopathy - Respiratory Exam Respiratory Exam: Decreased Breath Sounds - Cardiovascular Exam Cardiovascular Exam: REGULAR RHYTHM, +S1, +S2 - GI/Abdominal Exam GI & Abdominal Exam: Soft, Diminished Bowel Sounds - Rectal Exam Rectal Exam: Deferred
--- NOTE | 2018-11-06 15:54 | CP.PCM.PN ---
Subjective - Date & Time of Evaluation Date of Evaluation: 11/06/18 Time of Evaluation: 08:00 - Subjective Subjective: afeb awake alert on IV rx Objective - Vital Signs/Intake and Output Vital Signs (last 24 hours): Temp Pulse Resp BP Pulse Ox 98.7 F 83 18 148/72 98 11/06/18 07:00 11/06/18 10:00 11/06/18 07:00 11/06/18 07:00 11/06/18 07:00 Intake and Output: 11/06/18 11/06/18 06:59 18:59 Intake Total 100 340 Output Total 300 Balance -200 340 - Medications Medications: Current Medications Amlodipine Besylate (Norvasc) 10 mg PO DAILY [facility] Last Admin: 11/06/18 09:20 Dose: 10 mg Artificial Tears (Artificial Tears) 0 ml OU BID [facility] Last Admin: 11/06/18 09:20 Dose: 1 drop Heparin Sodium (Porcine) (Heparin) 5,000 units SC Q8 [facility] Last Admin: 11/06/18 13:34 Dose: 5,000 units Hydralazine HCl (Apresoline) 50 mg PO BID [facility] Last Admin: 11/06/18 09:20 Dose: 50 mg Hydrochlorothiazide (Hydrodiuril) 25 mg PO DAILY [facility] Last Admin: 11/06/18 09:20 Dose: 25 mg Metronidazole (Flagyl) 500 mg in 100 mls @ 100 mls/hr IVPB Q8H [facility]; Protocol Last Admin: 11/06/18 12:08 Dose: 100 mls/hr Meropenem 500 mg/ Sodium (Chloride) 100 mls @ 100 mls/hr IVPB Q12H [facility]; Protocol Last Admin: 11/06/18 13:33 Dose: 100 mls/hr Insulin Aspart (Novolog) 0 unit SC ACHS [facility]; Protocol Last Admin: 11/06/18 12:08 Dose: 3 unit Losartan Potassium (Cozaar) 25 mg PO DAILY [facility] Last Admin: 11/06/18 09:20 Dose: 25 mg Metoprolol Succinate (Toprol Xl) 100 mg PO DAILY [facility] Last Admin: 11/06/18 09:20 Dose: 100 mg Pantoprazole Sodium (Protonix Ec Tab) 40 mg PO DAILY [facility] Last Admin: 11/06/18 09:20 Dose: 40 mg - Labs Labs: 11/06/18 06:10 11/06/18 06:10 PT 15.2 SECONDS (9.7-12.2) H 10/27/18 03:32 INR 1.4 10/27/18 03:32 APTT 66 SECONDS (21-34) H 10/27/18 03:32 - Constitutional Appears: Non-toxic, Chronically Ill - Head Exam Head Exam: NORMOCEPHALIC - Eye Exam Eye Exam: absent: Scleral icterus - ENT Exam ENT Exam: Mucous Membranes Dry - Neck Exam Neck Exam: absent: Lymphadenopathy - Respiratory Exam Respiratory Exam: Decreased Breath Sounds - Cardiovascular Exam Cardiovascular Exam: REGULAR RHYTHM - GI/Abdominal Exam GI & Abdominal Exam: Distended, Soft, Tenderness - Rectal Exam Rectal Exam: Deferred - Exam Exam: NORMAL INSPECTION Assessment and Plan (1) Abdominal pain Status: Acute (2) Acute appendicitis with rupture Status: Acute - Assessment and Plan (Free Text) Assessment: consider repeat imaging GI follow up Renew IV antibiotics
--- NOTE | 2018-11-06 17:55 | CARD ---
APPROVED REPORT Date of service: 11/04/2018 EKG Measurement Heart [id number] <Conclusion> Normal sinus rhythm Possible Inferior infarct, age undetermined Cannot rule out Anterior infarct, age undetermined Abnormal ECG
--- NOTE | 2018-11-06 21:59 | CP.PCM.PN ---
Subjective - Date & Time of Evaluation Date of Evaluation: 11/06/18 Time of Evaluation: 16:10 - Subjective Subjective: Patient seen and evaluated No cardiac events noted denies chest pain and dyspnea Objective - Vital Signs/Intake and Output Vital Signs (last 24 hours): Temp Pulse Resp BP Pulse Ox 98.4 F 86 20 138/74 95 11/06/18 15:00 11/06/18 15:45 11/06/18 15:00 11/06/18 15:00 11/06/18 15:00 Intake and Output: 11/06/18 11/07/18 18:59 06:59 Intake Total 340 Balance 340 - Medications Medications: Current Medications Amlodipine Besylate (Norvasc) 10 mg PO DAILY [facility] Last Admin: 11/06/18 09:20 Dose: 10 mg Artificial Tears (Artificial Tears) 0 ml OU BID [facility] Last Admin: 11/06/18 18:05 Dose: 1 drop Heparin Sodium (Porcine) (Heparin) 5,000 units SC Q8 [facility] Last Admin: 11/06/18 21:42 Dose: 5,000 units Hydralazine HCl (Apresoline) 50 mg PO BID [facility] Last Admin: 11/06/18 18:05 Dose: 50 mg Hydrochlorothiazide (Hydrodiuril) 25 mg PO DAILY [facility] Last Admin: 11/06/18 09:20 Dose: 25 mg Metronidazole (Flagyl) 500 mg in 100 mls @ 100 mls/hr IVPB Q8H [facility]; Protocol Last Admin: 11/06/18 18:06 Dose: 100 mls/hr Meropenem 500 mg/ Sodium (Chloride) 100 mls @ 100 mls/hr IVPB Q12H [facility]; Protocol Last Admin: 11/06/18 13:33 Dose: 100 mls/hr Insulin Aspart (Novolog) 0 unit SC ACHS [facility]; Protocol Last Admin: 11/06/18 21:37 Dose: Not Given Losartan Potassium (Cozaar) 25 mg PO DAILY [facility] Last Admin: 11/06/18 09:20 Dose: 25 mg Metoprolol Succinate (Toprol Xl) 100 mg PO DAILY [facility] Last Admin: 11/06/18 09:20 Dose: 100 mg Pantoprazole Sodium (Protonix Ec Tab) 40 mg PO DAILY [facility] Last Admin: 11/06/18 09:20 Dose: 40 mg - Labs Labs: 11/06/18 06:10 11/06/18 06:10 PT 15.2 SECONDS (9.7-12.2) H 10/27/18 03:32 INR 1.4 10/27/18 03:32 APTT 66 SECONDS (21-34) H 10/27/18 03:32
[2018-11-07] MEDS: Meropenem 500 MG in Sodium Chloride 0.9% 100 ML IVPB SCH ×2 (01:55→13:50)
[2018-11-07] MEDS: metroNIDAZOLE IV 500 mg/100 ml 500 MG/100 ML BAG IVPB SCH ×3 (03:12→18:00)
[2018-11-07 05:48] LABS: CK-MB 0.25 ng/mL (0.0-3.38)
--- NOTE | 2018-11-07 06:08 | CP.PCM.PCO ---
Addendum Addendum: 11/07/18 06:06 House doc note Patient complained of chest pain at 3am this morning On exam, pain was reproducible to palpation. Admitted that he has had cough. STAT GINNA and EKG ordered. EKG unchanged from prior. Trop neg. Heidi Bejarano, PGY1 11/07/18 07:42
[2018-11-07 07:44] LABS: ALB/GLOB RATIO 1.1 (1.0-2.1); ALBUMIN 3.1 g/dL (3.5-5.0); ALT/SGPT 34 U/L (21-72); AST/SGOT 35 U/L (17-59); BLOOD UREA NITROGEN 21 mg/dL (9-20); CALCIUM 8.5 mg/dl (8.6-10.4); GFR NON-AFRICAN AMERICAN 49
[2018-11-07] MEDS: (Novolog) Insulin Aspart, Recombinant 100 u/ml 10 ml vial SC SCH ×4 (08:46→21:10)
[2018-11-07] MEDS: Pantoprazole 40 mg EC Tab PO SCH (09:20)
[2018-11-07] MEDS: Metoprolol Succinate 100 mg XL Tab PO SCH (09:20)
[2018-11-07] MEDS: Aritificial Tears (15ml) OU SCH ×2 (09:24→17:58)
[2018-11-07 11:05] LABS: BASO % 0.5 % (0.0-2.0); EOS # 0.1 K/uL (0.0-0.7); EOS % 0.6 % (0.0-4.0); LYMPH # 0.6 K/uL (1.0-4.3); LYMPH % 6.6 % (20.0-40.0); MEAN CELL VOLUME 91.7 fL (80.0-94.0); MEAN CORPUSCULAR HGB CONC 32.7 g/dL (33.0-37.0); MEAN PLATELET VOLUME 9.2 fL (7.2-11.7); MONO # 1.3 K/uL (0.0-0.8); MONO % 13.4 % (0.0-10.0); NEUT # 7.4 K/uL (1.8-7.0); NEUT % 78.9 % (50.0-75.0); NRBC % 0.1 % (0.0-2.0); PLATELET COUNT 80 K/uL (130-400); RBC 3.68 Mil/uL (4.40-5.90); RED CELL DISTRIBUTION WIDTH 14.3 % (11.5-14.5); WHITE BLOOD COUNT 9.4 K/uL (4.8-10.8)
[2018-11-07 11:25] LABS: EOSINOPHIL 1 % (0-4); LYMPHOCYTE 3 % (20-40); MONOCYTE 10 % (0-10); NEUTROPHIL 86 % (50-75); TOTAL CELLS COUNTED 100
[2018-11-07 11:30] LABS: ANISOCYTOSIS SLIGHT; HYPOCHROMIC SLIGHT; PLATELET ESTIMATE DECREASED (NORMAL); POIKILOCYTOSIS SLIGHT
[2018-11-07 11:31] LABS: TARGET CELLS SLIGHT
--- NOTE | 2018-11-07 14:08 | CP.PCM.PN ---
Subjective - Date & Time of Evaluation Date of Evaluation: 11/07/18 Time of Evaluation: 09:15 - Subjective Subjective: clinically same Objective - Vital Signs/Intake and Output Vital Signs (last 24 hours): Temp Pulse Resp BP Pulse Ox 98.1 F 82 20 154/72 H 97 11/07/18 07:00 11/07/18 07:00 11/07/18 07:00 11/07/18 07:00 11/07/18 07:00 - Medications Medications: Current Medications Amlodipine Besylate (Norvasc) 10 mg PO DAILY [facility] Last Admin: 11/07/18 09:20 Dose: 10 mg Artificial Tears (Artificial Tears) 0 ml OU BID [facility] Last Admin: 11/07/18 09:24 Dose: 1 drop Hydralazine HCl (Apresoline) 50 mg PO BID [facility] Last Admin: 11/07/18 09:20 Dose: 50 mg Hydrochlorothiazide (Hydrodiuril) 25 mg PO DAILY [facility] Last Admin: 11/07/18 09:24 Dose: 25 mg Metronidazole (Flagyl) 500 mg in 100 mls @ 100 mls/hr IVPB Q8H [facility]; Protocol Last Admin: 11/07/18 11:25 Dose: 100 mls/hr Meropenem 500 mg/ Sodium (Chloride) 100 mls @ 100 mls/hr IVPB Q12H [facility]; Protocol Last Admin: 11/07/18 13:50 Dose: 100 mls/hr Insulin Aspart (Novolog) 0 unit SC ACHS [facility]; Protocol Last Admin: 11/07/18 12:54 Dose: 3 unit Losartan Potassium (Cozaar) 25 mg PO DAILY [facility] Last Admin: 11/07/18 09:20 Dose: 25 mg Metoprolol Succinate (Toprol Xl) 100 mg PO DAILY [facility] Last Admin: 11/07/18 09:20 Dose: 100 mg Pantoprazole Sodium (Protonix Ec Tab) 40 mg PO DAILY [facility] Last Admin: 11/07/18 09:20 Dose: 40 mg - Labs Labs: 11/07/18 10:56 11/07/18 03:37 PT 15.2 SECONDS (9.7-12.2) H 10/27/18 03:32 INR 1.4 10/27/18 03:32 APTT 66 SECONDS (21-34) H 10/27/18 03:32 - Constitutional Appears: Well - Head Exam Head Exam: ATRAUMATIC, NORMAL INSPECTION, NORMOCEPHALIC - Eye Exam Eye Exam: EOMI, Normal appearance, PERRL Pupil Exam: NORMAL ACCOMODATION, PERRL - ENT Exam ENT Exam: Mucous Membranes Moist, Normal Exam - Neck Exam Neck Exam: Full ROM, Normal Inspection. absent: Lymphadenopathy - Respiratory Exam Respiratory Exam: Decreased Breath Sounds - Cardiovascular Exam Cardiovascular Exam: REGULAR RHYTHM, +S1, +S2 - GI/Abdominal Exam GI & Abdominal Exam: Soft, Diminished Bowel Sounds - Rectal Exam Rectal Exam: Deferred
--- NOTE | 2018-11-07 16:46 | CP.PCM.PN ---
Subjective - Date & Time of Evaluation Date of Evaluation: 11/07/18 Time of Evaluation: 08:00 - Subjective Subjective: afebrile s/p sepsis/ septic shock secondary to perf appendix with abscess no positive cultures as surgery deferred due to severity of ilness and comorbidities' RILEY and leukocytosis resolved OK to switch to PO rx and follo wup CT abd as out pt vs cont iv rx for 7 more days Objective - Vital Signs/Intake and Output Vital Signs (last 24 hours): Temp Pulse Resp BP Pulse Ox 98.1 F 82 20 154/72 H 97 11/07/18 07:00 11/07/18 07:00 11/07/18 07:00 11/07/18 07:00 11/07/18 07:00 - Medications Medications: Current Medications Amlodipine Besylate (Norvasc) 10 mg PO DAILY [facility] Last Admin: 11/07/18 09:20 Dose: 10 mg Artificial Tears (Artificial Tears) 0 ml OU BID [facility] Last Admin: 11/07/18 09:24 Dose: 1 drop Hydralazine HCl (Apresoline) 50 mg PO BID [facility] Last Admin: 11/07/18 09:20 Dose: 50 mg Hydrochlorothiazide (Hydrodiuril) 25 mg PO DAILY [facility] Last Admin: 11/07/18 09:24 Dose: 25 mg Metronidazole (Flagyl) 500 mg in 100 mls @ 100 mls/hr IVPB Q8H [facility]; Protocol Last Admin: 11/07/18 11:25 Dose: 100 mls/hr Meropenem 500 mg/ Sodium (Chloride) 100 mls @ 100 mls/hr IVPB Q12H [facility]; Protocol Last Admin: 11/07/18 13:50 Dose: 100 mls/hr Insulin Aspart (Novolog) 0 unit SC ACHS [facility]; Protocol Last Admin: 11/07/18 12:54 Dose: 3 unit Losartan Potassium (Cozaar) 25 mg PO DAILY [facility] Last Admin: 11/07/18 09:20 Dose: 25 mg Metoprolol Succinate (Toprol Xl) 100 mg PO DAILY [facility] Last Admin: 11/07/18 09:20 Dose: 100 mg Pantoprazole Sodium (Protonix Ec Tab) 40 mg PO DAILY [facility] Last Admin: 11/07/18 09:20 Dose: 40 mg - Labs Labs: 11/07/18 10:56 11/07/18 03:37 PT 15.2 SECONDS (9.7-12.2) H 10/27/18 03:32 INR 1.4 10/27/18 03:32 APTT 66 SECONDS (21-34) H 10/27/18 03:32 - Constitutional Appears: Non-toxic, Chronically Ill - Head Exam Head Exam: NORMOCEPHALIC - Eye Exam Eye Exam: absent: Scleral icterus - ENT Exam ENT Exam: Mucous Membranes Dry - Neck Exam Neck Exam: absent: Lymphadenopathy - Respiratory Exam Respiratory Exam: Decreased Breath Sounds - Cardiovascular Exam Cardiovascular Exam: REGULAR RHYTHM - GI/Abdominal Exam GI & Abdominal Exam: Distended, Soft - Rectal Exam Rectal Exam: Deferred - Exam Exam: NORMAL INSPECTION - Extremities Exam Extremities Exam: absent: Pedal Edema - Back Exam Back Exam: absent: CVA tenderness (L), CVA tenderness (R) Assessment and Plan (1) Abdominal pain Status: Acute (2) Acute appendicitis with rupture Status: Acute - Assessment and Plan (Free Text) Assessment: afebrile s/p sepsis/ septic shock secondary to perf appendix with abscess no positive cultures as surgery deferred due to severity of ilness and comorbidities' RILEY and leukocytosis resolved OK to switch to PO rx and follo wup CT abd as out pt vs cont iv rx for 7 more days
--- NOTE | 2018-11-07 23:04 | CP.PCM.PN ---
Subjective - Date & Time of Evaluation Date of Evaluation: 11/07/18 Time of Evaluation: 16:30 - Subjective Subjective: Patient seen and evaluated denies chest pain and dyspnea Objective - Vital Signs/Intake and Output Vital Signs (last 24 hours): Temp Pulse Resp BP Pulse Ox 99.4 F 88 20 150/77 85 L 11/07/18 15:00 11/07/18 16:00 11/07/18 15:00 11/07/18 15:00 11/07/18 15:00 - Medications Medications: Current Medications Amlodipine Besylate (Norvasc) 10 mg PO DAILY [facility] Last Admin: 11/07/18 09:20 Dose: 10 mg Artificial Tears (Artificial Tears) 0 ml OU BID [facility] Last Admin: 11/07/18 17:58 Dose: 1 drop Hydralazine HCl (Apresoline) 50 mg PO BID [facility] Last Admin: 11/07/18 17:58 Dose: 50 mg Hydrochlorothiazide (Hydrodiuril) 25 mg PO DAILY [facility] Last Admin: 11/07/18 09:24 Dose: 25 mg Metronidazole (Flagyl) 500 mg in 100 mls @ 100 mls/hr IVPB Q8H [facility]; Protocol Last Admin: 11/07/18 18:00 Dose: 100 mls/hr Meropenem 500 mg/ Sodium (Chloride) 100 mls @ 100 mls/hr IVPB Q12H [facility]; Protocol Last Admin: 11/07/18 13:50 Dose: 100 mls/hr Insulin Aspart (Novolog) 0 unit SC ACHS [facility]; Protocol Last Admin: 11/07/18 21:10 Dose: Not Given Losartan Potassium (Cozaar) 25 mg PO DAILY [facility] Last Admin: 11/07/18 09:20 Dose: 25 mg Metoprolol Succinate (Toprol Xl) 100 mg PO DAILY [facility] Last Admin: 11/07/18 09:20 Dose: 100 mg Pantoprazole Sodium (Protonix Ec Tab) 40 mg PO DAILY [facility] Last Admin: 11/07/18 09:20 Dose: 40 mg - Labs Labs: 11/07/18 10:56 11/07/18 03:37 PT 15.2 SECONDS (9.7-12.2) H 10/27/18 03:32 INR 1.4 10/27/18 03:32 APTT 66 SECONDS (21-34) H 10/27/18 03:32
[2018-11-08] MEDS: Meropenem 500 MG in Sodium Chloride 0.9% 100 ML IVPB SCH ×2 (01:42→14:17)
[2018-11-08] MEDS: metroNIDAZOLE IV 500 mg/100 ml 500 MG/100 ML BAG IVPB SCH ×3 (03:22→18:29)
[2018-11-08 07:48] LABS: BASO % 0.2 % (0.0-2.0); EOS % 0.4 % (0.0-4.0); HEMOGLOBIN 11.1 g/dL (12.0-18.0); LYMPH # 0.7 K/uL (1.0-4.3); LYMPH % 7.1 % (20.0-40.0); MEAN CELL VOLUME 91.2 fL (80.0-94.0); MEAN CORPUSCULAR HEMOGLOBIN 30.3 pg (27.0-31.0); MEAN CORPUSCULAR HGB CONC 33.2 g/dL (33.0-37.0); MEAN PLATELET VOLUME 8.9 fL (7.2-11.7); MONO # 1.1 K/uL (0.0-0.8); NEUT # 7.6 K/uL (1.8-7.0); NEUT % 80.3 % (50.0-75.0); PLATELET COUNT 73 K/uL (130-400); RBC 3.68 Mil/uL (4.40-5.90); RED CELL DISTRIBUTION WIDTH 14.4 % (11.5-14.5); WHITE BLOOD COUNT 9.5 K/uL (4.8-10.8)
[2018-11-08] MEDS: (Novolog) Insulin Aspart, Recombinant 100 u/ml 10 ml vial SC SCH ×4 (08:00→21:47)
[2018-11-08 08:21] LABS: ALB/GLOB RATIO 1.2 (1.0-2.1); ALBUMIN 3.3 g/dL (3.5-5.0); CALCIUM 8.5 mg/dl (8.6-10.4)
[2018-11-08 08:53] LABS: TOTAL CELLS COUNTED 100
[2018-11-08 08:55] LABS: LYMPHOCYTE 5 % (20-40); MONOCYTE 14 % (0-10); NEUTROPHIL 81 % (50-75); PLATELET ESTIMATE DECREASED (NORMAL)
[2018-11-08] MEDS: Aritificial Tears (15ml) OU SCH ×2 (10:20→17:07)
[2018-11-08] MEDS: Pantoprazole 40 mg EC Tab PO SCH (10:25)
[2018-11-08] MEDS: Metoprolol Succinate 100 mg XL Tab PO SCH (10:25)
--- NOTE | 2018-11-08 16:49 | CP.PCM.PN ---
Subjective - Date & Time of Evaluation Date of Evaluation: 11/08/18 Time of Evaluation: 07:00 - Subjective Subjective: afebrile s/p sepsis/ septic shock secondary to perf appendix with abscess Objective - Vital Signs/Intake and Output Vital Signs (last 24 hours): Temp Pulse Resp BP Pulse Ox 99.4 F 88 20 136/73 97 11/08/18 15:00 11/08/18 15:00 11/08/18 15:00 11/08/18 15:00 11/08/18 15:00 - Medications Medications: Current Medications Amlodipine Besylate (Norvasc) 10 mg PO DAILY [facility] Last Admin: 11/08/18 10:25 Dose: 10 mg Artificial Tears (Artificial Tears) 0 ml OU BID [facility] Last Admin: 11/08/18 10:20 Dose: 1 drop Hydralazine HCl (Apresoline) 50 mg PO BID [facility] Last Admin: 11/08/18 10:25 Dose: 50 mg Hydrochlorothiazide (Hydrodiuril) 25 mg PO DAILY [facility] Last Admin: 11/08/18 10:25 Dose: 25 mg Metronidazole (Flagyl) 500 mg in 100 mls @ 100 mls/hr IVPB Q8H [facility]; Protocol Last Admin: 11/08/18 13:20 Dose: 100 mls/hr Meropenem 500 mg/ Sodium (Chloride) 100 mls @ 100 mls/hr IVPB Q12H [facility]; Protocol Last Admin: 11/08/18 14:17 Dose: 100 mls/hr Insulin Aspart (Novolog) 0 unit SC ACHS [facility]; Protocol Last Admin: 11/08/18 13:45 Dose: 3 unit Losartan Potassium (Cozaar) 25 mg PO DAILY [facility] Last Admin: 11/08/18 10:25 Dose: 25 mg Metoprolol Succinate (Toprol Xl) 100 mg PO DAILY [facility] Last Admin: 11/08/18 10:25 Dose: 100 mg Pantoprazole Sodium (Protonix Ec Tab) 40 mg PO DAILY [facility] Last Admin: 11/08/18 10:25 Dose: 40 mg - Labs Labs: 11/08/18 07:35 11/08/18 07:35 PT 15.2 SECONDS (9.7-12.2) H 10/27/18 03:32 INR 1.4 10/27/18 03:32 APTT 66 SECONDS (21-34) H 10/27/18 03:32 - Constitutional Appears: Non-toxic, Chronically Ill - Head Exam Head Exam: NORMOCEPHALIC - Eye Exam Eye Exam: absent: Scleral icterus - ENT Exam ENT Exam: Mucous Membranes Dry - Neck Exam Neck Exam: absent: Lymphadenopathy - Respiratory Exam Respiratory Exam: Decreased Breath Sounds - Cardiovascular Exam Cardiovascular Exam: REGULAR RHYTHM - GI/Abdominal Exam GI & Abdominal Exam: Distended, Soft - Rectal Exam Rectal Exam: Deferred - Exam Exam: NORMAL INSPECTION - Extremities Exam Extremities Exam: Pedal Edema - Back Exam Back Exam: absent: CVA tenderness (L), CVA tenderness (R) - Neurological Exam Neurological Exam: Alert, Awake, Oriented x3 Assessment and Plan (1) Abdominal pain Status: Acute (2) Acute appendicitis with rupture Status: Acute - Assessment and Plan (Free Text) Assessment: afebrile s/p sepsis/ septic shock secondary to perf appendix with abscess no positive cultures as surgery deferred due to severity of ilness and comorbidities' RILEY and leukocytosis resolved OK to switch to PO rx and follo wup CT abd as out pt vs cont iv rx for 7 more days
--- NOTE | 2018-11-08 18:43 | CP.PCM.PN ---
Subjective - Date & Time of Evaluation Date of Evaluation: 11/08/18 Time of Evaluation: 09:20 - Subjective Subjective: Patient seen and examined at bedside this morning. No new complaints. Abd pain improved. Tolerating diet. Denies any N/V/D. No Fevers or chills. Denies chest pain and dyspnea Physical Examination - Constitutional Appears: Well, Non-toxic, No Acute Distress - Head Exam Head Exam: ATRAUMATIC, NORMAL INSPECTION, NORMOCEPHALIC - Eye Exam Eye Exam: EOMI, Normal appearance - ENT Exam ENT Exam: Mucous Membranes Moist - Respiratory Exam Respiratory Exam: NORMAL BREATHING PATTERN. absent: Accessory Muscle Use, Whee zes, Respiratory Distress - Cardiovascular Exam Cardiovascular Exam: RRR. absent: JVD - GI/Abdominal Exam GI & Abdominal Exam: Soft. absent: Distended, Firm, Guarding, Rigid, Tenderness, Rebound - Extremities Exam Extremities Exam: Normal Inspection. absent: Calf Tenderness - Neurological Exam Neurological Exam: Alert, Awake, Oriented x3 - Psychiatric Exam Psychiatric exam: Normal Affect, Normal Mood - Skin Skin Exam: Dry, Intact, Normal Color, Warm Assessment and Plan - Assessment and Plan (Free Text) Assessment: 78yo M with ruptured Appendicitis, hypercapnic respiratory failure (resolved), and acute on chronic renal failure (resolving) Hx of CAD Plan: No plan for surgery Medical management Objective - Vital Signs/Intake and Output Vital Signs (last 24 hours): Temp Pulse Resp BP Pulse Ox 99.4 F 88 20 136/73 97 11/08/18 15:00 11/08/18 15:00 11/08/18 15:00 11/08/18 15:00 11/08/18 15:00 - Medications Medications: Current Medications Amlodipine Besylate (Norvasc) 10 mg PO DAILY [facility] Last Admin: 11/08/18 10:25 Dose: 10 mg Artificial Tears (Artificial Tears) 0 ml OU BID [facility] Last Admin: 11/08/18 17:07 Dose: 1 drop Hydralazine HCl (Apresoline) 50 mg PO BID [facility] Last Admin: 11/08/18 17:07 Dose: 50 mg Hydrochlorothiazide (Hydrodiuril) 25 mg PO DAILY [facility] Last Admin: 11/08/18 10:25 Dose: 25 mg Metronidazole (Flagyl) 500 mg in 100 mls @ 100 mls/hr IVPB Q8H [facility]; Protocol Last Admin: 11/08/18 18:29 Dose: 100 mls/hr Meropenem 500 mg/ Sodium (Chloride) 100 mls @ 100 mls/hr IVPB Q12H [facility]; Protocol Last Admin: 11/08/18 14:17 Dose: 100 mls/hr Insulin Aspart (Novolog) 0 unit SC ACHS [facility]; Protocol Last Admin: 11/08/18 17:07 Dose: 4 unit Losartan Potassium (Cozaar) 25 mg PO DAILY [facility] Last Admin: 11/08/18 10:25 Dose: 25 mg Metoprolol Succinate (Toprol Xl) 100 mg PO DAILY [facility] Last Admin: 11/08/18 10:25 Dose: 100 mg Pantoprazole Sodium (Protonix Ec Tab) 40 mg PO DAILY [facility] Last Admin: 11/08/18 10:25 Dose: 40 mg - Labs Labs: 11/08/18 07:35 11/08/18 07:35 PT 15.2 SECONDS (9.7-12.2) H 10/27/18 03:32 INR 1.4 10/27/18 03:32 APTT 66 SECONDS (21-34) H 10/27/18 03:32
--- NOTE | 2018-11-08 19:23 | CARD ---
APPROVED REPORT Date of service: 11/07/2018 EKG Measurement Heart [id number] <Conclusion> Normal sinus rhythm Inferior infarct, age undetermined Abnormal ECG
--- NOTE | 2018-11-08 21:18 | CP.PCM.PN ---
Subjective - Date & Time of Evaluation Date of Evaluation: 11/08/18 Time of Evaluation: 08:30 - Subjective Subjective: clinically same Objective - Vital Signs/Intake and Output Vital Signs (last 24 hours): Temp Pulse Resp BP Pulse Ox 99.4 F 88 20 136/73 97 11/08/18 15:00 11/08/18 15:00 11/08/18 15:00 11/08/18 15:00 11/08/18 15:00 - Medications Medications: Current Medications Amlodipine Besylate (Norvasc) 10 mg PO DAILY [facility] Last Admin: 11/08/18 10:25 Dose: 10 mg Artificial Tears (Artificial Tears) 0 ml OU BID [facility] Last Admin: 11/08/18 17:07 Dose: 1 drop Hydralazine HCl (Apresoline) 50 mg PO BID [facility] Last Admin: 11/08/18 17:07 Dose: 50 mg Hydrochlorothiazide (Hydrodiuril) 25 mg PO DAILY [facility] Last Admin: 11/08/18 10:25 Dose: 25 mg Metronidazole (Flagyl) 500 mg in 100 mls @ 100 mls/hr IVPB Q8H [facility]; Protocol Last Admin: 11/08/18 18:29 Dose: 100 mls/hr Meropenem 500 mg/ Sodium (Chloride) 100 mls @ 100 mls/hr IVPB Q12H [facility]; Protocol Last Admin: 11/08/18 14:17 Dose: 100 mls/hr Insulin Aspart (Novolog) 0 unit SC ACHS [facility]; Protocol Last Admin: 11/08/18 17:07 Dose: 4 unit Losartan Potassium (Cozaar) 25 mg PO DAILY [facility] Last Admin: 11/08/18 10:25 Dose: 25 mg Metoprolol Succinate (Toprol Xl) 100 mg PO DAILY [facility] Last Admin: 11/08/18 10:25 Dose: 100 mg Pantoprazole Sodium (Protonix Ec Tab) 40 mg PO DAILY [facility] Last Admin: 11/08/18 10:25 Dose: 40 mg - Labs Labs: 11/08/18 07:35 11/08/18 07:35 PT 15.2 SECONDS (9.7-12.2) H 10/27/18 03:32 INR 1.4 10/27/18 03:32 APTT 66 SECONDS (21-34) H 10/27/18 03:32
[2018-11-09] MEDS: Meropenem 500 MG in Sodium Chloride 0.9% 100 ML IVPB SCH ×2 (01:26→13:12)
[2018-11-09] MEDS: metroNIDAZOLE IV 500 mg/100 ml 500 MG/100 ML BAG IVPB SCH ×3 (03:20→19:23)
[2018-11-09 06:38] LABS: BASO % 0.3 % (0.0-2.0); EOS # 0.1 K/uL (0.0-0.7); EOS % 0.7 % (0.0-4.0); HEMOGLOBIN 10.3 g/dL (12.0-18.0); LYMPH # 0.7 K/uL (1.0-4.3); LYMPH % 8.1 % (20.0-40.0); MEAN CELL VOLUME 91.9 fL (80.0-94.0); MEAN CORPUSCULAR HEMOGLOBIN 29.7 pg (27.0-31.0); MEAN CORPUSCULAR HGB CONC 32.4 g/dL (33.0-37.0); MEAN PLATELET VOLUME 8.9 fL (7.2-11.7); MONO # 1.3 K/uL (0.0-0.8); MONO % 15.9 % (0.0-10.0); NEUT # 6.1 K/uL (1.8-7.0); PLATELET COUNT 64 K/uL (130-400); RBC 3.48 Mil/uL (4.40-5.90); RED CELL DISTRIBUTION WIDTH 14.9 % (11.5-14.5); WHITE BLOOD COUNT 8.1 K/uL (4.8-10.8)
[2018-11-09 06:56] LABS: ALBUMIN 2.9 g/dL (3.5-5.0); CALCIUM 8.1 mg/dl (8.6-10.4)
[2018-11-09 06:57] LABS: SQUAMOUS EPITHIAL < 1 /hpf (0-5); URINE BILIRUBIN NEGATIVE (NEGATIVE); URINE BLOOD NEGATIVE (NEGATIVE); URINE CLARITY Clear (Clear); URINE COLOR Yellow (YELLOW); URINE GLUCOSE (UA) NORMAL (Normal); URINE HYALINE CAST 0-2 /lpf (0-2); URINE LEUKOCYTE ESTERASE TRACE Leu/uL (Negative); URINE PROTEIN 2+ mg/dL (NEGATIVE); URINE UROBILINOGEN NORMAL mg/dL (0.2-1.0)
[2018-11-09] MEDS: (Novolog) Insulin Aspart, Recombinant 100 u/ml 10 ml vial SC SCH ×4 (07:40→22:58)
[2018-11-09 08:58] LABS: LYMPHOCYTE 5 % (20-40); MONOCYTE 11 % (0-10); NEUTROPHIL 84 % (50-75); PLATELET ESTIMATE DECREASED (NORMAL); TOTAL CELLS COUNTED 100
[2018-11-09 08:59] LABS: ANISOCYTOSIS SLIGHT; LARGE PLATELETS PRESENT; PLATELET CLUMPS PRESENT; TOXIC GRANULATION PRESENT
[2018-11-09 09:00] LABS: POLYCHROMIC SLIGHT
[2018-11-09] MEDS: Aritificial Tears (15ml) OU SCH ×2 (10:13→17:25)
[2018-11-09] MEDS: Pantoprazole 40 mg EC Tab PO SCH (10:13)
[2018-11-09] MEDS: Metoprolol Succinate 100 mg XL Tab PO SCH (10:13)
--- NOTE | 2018-11-09 22:20 | CP.PCM.PN ---
Subjective - Date & Time of Evaluation Date of Evaluation: 11/09/18 Time of Evaluation: 08:15 - Subjective Subjective: clinically same Objective - Vital Signs/Intake and Output Vital Signs (last 24 hours): Temp Pulse Resp BP Pulse Ox 99.1 F 87 20 115/56 L 97 11/09/18 16:00 11/09/18 16:00 11/09/18 16:00 11/09/18 16:00 11/09/18 16:00 - Medications Medications: Current Medications Amlodipine Besylate (Norvasc) 10 mg PO DAILY [facility] Last Admin: 11/09/18 10:13 Dose: 10 mg Artificial Tears (Artificial Tears) 0 ml OU BID [facility] Last Admin: 11/09/18 17:25 Dose: 1 drop Hydralazine HCl (Apresoline) 50 mg PO BID [facility] Last Admin: 11/09/18 17:25 Dose: 50 mg Hydrochlorothiazide (Hydrodiuril) 25 mg PO DAILY [facility] Last Admin: 11/09/18 10:15 Dose: 25 mg Metronidazole (Flagyl) 500 mg in 100 mls @ 100 mls/hr IVPB Q8H [facility]; Protocol Last Admin: 11/09/18 19:23 Dose: 100 mls/hr Meropenem 500 mg/ Sodium (Chloride) 100 mls @ 100 mls/hr IVPB Q12H [facility]; Protocol Last Admin: 11/09/18 13:12 Dose: 100 mls/hr Insulin Aspart (Novolog) 0 unit SC ACHS [facility]; Protocol Last Admin: 11/09/18 17:25 Dose: 2 unit Losartan Potassium (Cozaar) 25 mg PO DAILY [facility] Last Admin: 11/09/18 10:13 Dose: 25 mg Metoprolol Succinate (Toprol Xl) 100 mg PO DAILY [facility] Last Admin: 11/09/18 10:13 Dose: 100 mg - Labs Labs: 11/09/18 06:31 11/09/18 06:31 PT 15.2 SECONDS (9.7-12.2) H 10/27/18 03:32 INR 1.4 10/27/18 03:32 APTT 66 SECONDS (21-34) H 10/27/18 03:32
--- NOTE | 2018-11-09 23:33 | CP.PCM.PN ---
Subjective - Date & Time of Evaluation Date of Evaluation: 11/09/18 Time of Evaluation: 09:05 - Subjective Subjective: Patient seen and examined at bedside. No cardiac events noted No new complaints Objective - Vital Signs/Intake and Output Vital Signs (last 24 hours): Temp Pulse Resp BP Pulse Ox 99.1 F 87 20 115/56 L 97 11/09/18 16:00 11/09/18 16:00 11/09/18 16:00 11/09/18 16:00 11/09/18 16:00 - Medications Medications: Current Medications Amlodipine Besylate (Norvasc) 10 mg PO DAILY [facility] Last Admin: 11/09/18 10:13 Dose: 10 mg Artificial Tears (Artificial Tears) 0 ml OU BID [facility] Last Admin: 11/09/18 17:25 Dose: 1 drop Hydralazine HCl (Apresoline) 50 mg PO BID [facility] Last Admin: 11/09/18 17:25 Dose: 50 mg Hydrochlorothiazide (Hydrodiuril) 25 mg PO DAILY [facility] Last Admin: 11/09/18 10:15 Dose: 25 mg Metronidazole (Flagyl) 500 mg in 100 mls @ 100 mls/hr IVPB Q8H [facility]; Protocol Last Admin: 11/09/18 19:23 Dose: 100 mls/hr Meropenem 500 mg/ Sodium (Chloride) 100 mls @ 100 mls/hr IVPB Q12H [facility]; Protocol Last Admin: 11/09/18 13:12 Dose: 100 mls/hr Insulin Aspart (Novolog) 0 unit SC ACHS [facility]; Protocol Last Admin: 11/09/18 22:58 Dose: Not Given Losartan Potassium (Cozaar) 25 mg PO DAILY [facility] Last Admin: 11/09/18 10:13 Dose: 25 mg Metoprolol Succinate (Toprol Xl) 100 mg PO DAILY [facility] Last Admin: 11/09/18 10:13 Dose: 100 mg - Labs Labs: 11/09/18 06:31 11/09/18 06:31 PT 15.2 SECONDS (9.7-12.2) H 10/27/18 03:32 INR 1.4 10/27/18 03:32 APTT 66 SECONDS (21-34) H 10/27/18 03:32
[2018-11-10] MEDS: Meropenem 500 MG in Sodium Chloride 0.9% 100 ML IVPB SCH ×2 (01:28→13:45)
[2018-11-10] MEDS: Pantoprazole 40 mg EC Tab PO SCH ×2 (02:10→10:31)
[2018-11-10] MEDS: Calcium Carbonate 500 mg Chewable Antacid Tab PO SCH ×3 (02:10→17:34)
[2018-11-10] MEDS: metroNIDAZOLE IV 500 mg/100 ml 500 MG/100 ML BAG IVPB SCH ×3 (02:40→19:43)
[2018-11-10 08:13] LABS: BASO % 0.3 % (0.0-2.0); EOS % 0.7 % (0.0-4.0); HEMOGLOBIN 10.2 g/dL (12.0-18.0); LYMPH # 0.7 K/uL (1.0-4.3); LYMPH % 10.2 % (20.0-40.0); MEAN CELL VOLUME 91.7 fL (80.0-94.0); MEAN CORPUSCULAR HEMOGLOBIN 30.3 pg (27.0-31.0); MONO # 1.3 K/uL (0.0-0.8); MONO % 17.9 % (0.0-10.0); NEUT % 70.9 % (50.0-75.0); RBC 3.38 Mil/uL (4.40-5.90); RED CELL DISTRIBUTION WIDTH 14.4 % (11.5-14.5); WHITE BLOOD COUNT 7.1 K/uL (4.8-10.8)
[2018-11-10 08:17] LABS: ALBUMIN 2.9 g/dL (3.5-5.0)
[2018-11-10] MEDS: (Novolog) Insulin Aspart, Recombinant 100 u/ml 10 ml vial SC SCH ×4 (08:30→21:46)
[2018-11-10] MEDS: Metoprolol Succinate 100 mg XL Tab PO SCH (10:32)
[2018-11-10] MEDS: Aritificial Tears (15ml) OU SCH ×2 (10:35→17:35)
[2018-11-10] MEDS: Lidocaine 5% Patch TD SCH (11:57)
--- NOTE | 2018-11-10 14:56 | CP.PCM.PN ---
Subjective - Date & Time of Evaluation Date of Evaluation: 11/10/18 Time of Evaluation: 08:00 - Subjective Subjective: afebrile s/p sepsis/ septic shock secondary to perf appendix with abscess Objective - Vital Signs/Intake and Output Vital Signs (last 24 hours): Temp Pulse Resp BP Pulse Ox 98.8 F 86 20 144/74 97 11/10/18 07:00 11/10/18 08:00 11/10/18 07:00 11/10/18 07:00 11/10/18 07:00 Intake and Output: 11/10/18 11/10/18 06:59 18:59 Intake Total 350 Output Total 350 Balance 0 - Medications Medications: Current Medications Amlodipine Besylate (Norvasc) 10 mg PO DAILY [facility] Last Admin: 11/10/18 10:32 Dose: 10 mg Artificial Tears (Artificial Tears) 0 ml OU BID [facility] Last Admin: 11/10/18 10:35 Dose: 1 drop Calcium Carbonate (Tums) 500 mg PO BID [facility] Last Admin: 11/10/18 10:35 Dose: 500 mg Hydralazine HCl (Apresoline) 50 mg PO BID [facility] Last Admin: 11/10/18 10:33 Dose: 50 mg Hydrochlorothiazide (Hydrodiuril) 25 mg PO DAILY [facility] Last Admin: 11/10/18 10:32 Dose: 25 mg Metronidazole (Flagyl) 500 mg in 100 mls @ 100 mls/hr IVPB Q8H [facility]; Protocol Last Admin: 11/10/18 10:43 Dose: 100 mls/hr Meropenem 500 mg/ Sodium (Chloride) 100 mls @ 100 mls/hr IVPB Q12H [facility]; Protocol Last Admin: 11/10/18 13:45 Dose: 100 mls/hr Insulin Aspart (Novolog) 0 unit SC ACHS [facility]; Protocol Last Admin: 11/10/18 11:37 Dose: 4 unit Lidocaine (Lidoderm) 2 ea TD DAILY [facility] Last Admin: 11/10/18 11:57 Dose: 2 ea Losartan Potassium (Cozaar) 25 mg PO DAILY [facility] Last Admin: 11/10/18 10:33 Dose: 25 mg Metoprolol Succinate (Toprol Xl) 100 mg PO DAILY [facility] Last Admin: 11/10/18 10:32 Dose: 100 mg Pantoprazole Sodium (Protonix Ec Tab) 40 mg PO DAILY [facility] Last Admin: 11/10/18 10:31 Dose: 40 mg - Labs Labs: 11/10/18 07:49 11/10/18 07:49 PT 15.2 SECONDS (9.7-12.2) H 10/27/18 03:32 INR 1.4 10/27/18 03:32 APTT 66 SECONDS (21-34) H 10/27/18 03:32 - Constitutional Appears: Well - Head Exam Head Exam: ATRAUMATIC, NORMAL INSPECTION, NORMOCEPHALIC - Eye Exam Eye Exam: EOMI, Normal appearance, PERRL Pupil Exam: NORMAL ACCOMODATION, PERRL - ENT Exam ENT Exam: Mucous Membranes Moist, Normal Exam - Neck Exam Neck Exam: Full ROM, Normal Inspection. absent: Lymphadenopathy - Respiratory Exam Respiratory Exam: Clear to Ausculation Bilateral, NORMAL BREATHING PATTERN - Cardiovascular Exam Cardiovascular Exam: REGULAR RHYTHM, +S1, +S2. absent: Murmur - GI/Abdominal Exam GI & Abdominal Exam: Soft, Normal Bowel Sounds. absent: Tenderness - Rectal Exam Rectal Exam: NORMAL INSPECTION - Extremities Exam Extremities Exam: Full ROM, Normal Capillary Refill, Normal Inspection. absent: Joint Swelling, Pedal Edema - Back Exam Back Exam: NORMAL INSPECTION - Neurological Exam Neurological Exam: Alert, Awake, CN II-XII Intact, Normal Gait, Oriented x3 - Psychiatric Exam Psychiatric exam: Normal Affect, Normal Mood - Skin Skin Exam: Dry, Intact, Normal Color, Warm Assessment and Plan (1) Abdominal pain Status: Acute (2) Acute appendicitis with rupture Status: Acute - Assessment and Plan (Free Text) Assessment: afebrile s/p sepsis/ septic shock secondary to perf appendix with abscess
--- NOTE | 2018-11-10 19:31 | CP.PCM.PN ---
Subjective - Date & Time of Evaluation Date of Evaluation: 11/10/18 Time of Evaluation: 09:15 - Subjective Subjective: clinically same Objective - Vital Signs/Intake and Output Vital Signs (last 24 hours): Temp Pulse Resp BP Pulse Ox 97.7 F 80 20 104/65 95 11/10/18 16:00 11/10/18 16:00 11/10/18 16:00 11/10/18 16:00 11/10/18 16:00 - Medications Medications: Current Medications Amlodipine Besylate (Norvasc) 10 mg PO DAILY [facility] Last Admin: 11/10/18 10:32 Dose: 10 mg Artificial Tears (Artificial Tears) 0 ml OU BID [facility] Last Admin: 11/10/18 17:35 Dose: 1 drop Calcium Carbonate (Tums) 500 mg PO BID [facility] Last Admin: 11/10/18 17:34 Dose: 500 mg Hydralazine HCl (Apresoline) 50 mg PO BID [facility] Last Admin: 11/10/18 17:34 Dose: 50 mg Hydrochlorothiazide (Hydrodiuril) 25 mg PO DAILY [facility] Last Admin: 11/10/18 10:32 Dose: 25 mg Metronidazole (Flagyl) 500 mg in 100 mls @ 100 mls/hr IVPB Q8H [facility]; Protocol Last Admin: 11/10/18 10:43 Dose: 100 mls/hr Meropenem 500 mg/ Sodium (Chloride) 100 mls @ 100 mls/hr IVPB Q12H [facility]; Protocol Last Admin: 11/10/18 13:45 Dose: 100 mls/hr Insulin Aspart (Novolog) 0 unit SC ACHS [facility]; Protocol Last Admin: 11/10/18 17:34 Dose: 3 unit Lidocaine (Lidoderm) 2 ea TD DAILY [facility] Last Admin: 11/10/18 11:57 Dose: 2 ea Losartan Potassium (Cozaar) 25 mg PO DAILY [facility] Last Admin: 11/10/18 10:33 Dose: 25 mg Metoprolol Succinate (Toprol Xl) 100 mg PO DAILY [facility] Last Admin: 11/10/18 10:32 Dose: 100 mg Pantoprazole Sodium (Protonix Ec Tab) 40 mg PO DAILY [facility] Last Admin: 11/10/18 10:31 Dose: 40 mg - Labs Labs: 11/10/18 07:49 11/10/18 07:49 PT 15.2 SECONDS (9.7-12.2) H 10/27/18 03:32 INR 1.4 10/27/18 03:32 APTT 66 SECONDS (21-34) H 10/27/18 03:32
--- NOTE | 2018-11-10 20:17 | CP.PCM.PN ---
Subjective - Date & Time of Evaluation Date of Evaluation: 11/10/18 Time of Evaluation: 18:30 - Subjective Subjective: Patient seen and examined at bedside this morning. No new complaints Denies chest pain and dyspnea Physical Examination - Constitutional Appears: Well, Non-toxic, No Acute Distress - Head Exam Head Exam: ATRAUMATIC, NORMAL INSPECTION, NORMOCEPHALIC - Eye Exam Eye Exam: EOMI, Normal appearance - ENT Exam ENT Exam: Mucous Membranes Moist - Respiratory Exam Respiratory Exam: NORMAL BREATHING PATTERN. absent: Accessory Muscle Use, Wheezes, Respiratory Distress - Cardiovascular Exam Cardiovascular Exam: RRR. absent: JVD - GI/Abdominal Exam GI & Abdominal Exam: Soft. absent: Distended, Firm, Guarding, Rigid, Tenderness, Rebound - Extremities Exam Extremities Exam: Normal Inspection. absent: Calf Tenderness - Neurological Exam Neurological Exam: Alert, Awake, Oriented x3 - Psychiatric Exam Psychiatric exam: Normal Affect, Normal Mood - Skin Skin Exam: Dry, Intact, Normal Color, Warm Assessment and Plan - Assessment and Plan (Free Text) Assessment: 78yo M with ruptured Appendicitis, hypercapnic respiratory failure (resolved), and acute on chronic renal failure (resolving) Hx of CAD Plan: No plan for surgery Medical management Objective - Vital Signs/Intake and Output Vital Signs (last 24 hours): Temp Pulse Resp BP Pulse Ox 97.7 F 80 20 104/65 95 11/10/18 16:00 11/10/18 16:00 11/10/18 16:00 11/10/18 16:00 11/10/18 16:00 - Medications Medications: Current Medications Amlodipine Besylate (Norvasc) 10 mg PO DAILY [facility] Last Admin: 11/10/18 10:32 Dose: 10 mg Artificial Tears (Artificial Tears) 0 ml OU BID [facility] Last Admin: 11/10/18 17:35 Dose: 1 drop Calcium Carbonate (Tums) 500 mg PO BID [facility] Last Admin: 11/10/18 17:34 Dose: 500 mg Hydralazine HCl (Apresoline) 50 mg PO BID [facility] Last Admin: 11/10/18 17:34 Dose: 50 mg Hydrochlorothiazide (Hydrodiuril) 25 mg PO DAILY [facility] Last Admin: 11/10/18 10:32 Dose: 25 mg Metronidazole (Flagyl) 500 mg in 100 mls @ 100 mls/hr IVPB Q8H [facility]; Protocol Last Admin: 11/10/18 19:43 Dose: 100 mls/hr Meropenem 500 mg/ Sodium (Chloride) 100 mls @ 100 mls/hr IVPB Q12H [facility]; Protocol Last Admin: 11/10/18 13:45 Dose: 100 mls/hr Insulin Aspart (Novolog) 0 unit SC ACHS [facility]; Protocol Last Admin: 11/10/18 17:34 Dose: 3 unit Lidocaine (Lidoderm) 2 ea TD DAILY [facility] Last Admin: 11/10/18 11:57 Dose: 2 ea Losartan Potassium (Cozaar) 25 mg PO DAILY [facility] Last Admin: 11/10/18 10:33 Dose: 25 mg Metoprolol Succinate (Toprol Xl) 100 mg PO DAILY [facility] Last Admin: 11/10/18 10:32 Dose: 100 mg Pantoprazole Sodium (Protonix Ec Tab) 40 mg PO DAILY [facility] Last Admin: 11/10/18 10:31 Dose: 40 mg - Labs Labs: 11/10/18 07:49 11/10/18 07:49 PT 15.2 SECONDS (9.7-12.2) H 10/27/18 03:32 INR 1.4 10/27/18 03:32 APTT 66 SECONDS (21-34) H 10/27/18 03:32
[2018-11-11] MEDS: Meropenem 500 MG in Sodium Chloride 0.9% 100 ML IVPB SCH ×2 (01:29→13:15)
[2018-11-11] MEDS: metroNIDAZOLE IV 500 mg/100 ml 500 MG/100 ML BAG IVPB SCH ×3 (02:48→19:00)
[2018-11-11 06:19] LABS: BASO % 0.5 % (0.0-2.0); EOS # 0.1 K/uL (0.0-0.7); EOS % 1.1 % (0.0-4.0); HEMOGLOBIN 10.9 g/dL (12.0-18.0); LYMPH # 0.6 K/uL (1.0-4.3); LYMPH % 8.9 % (20.0-40.0); MEAN CELL VOLUME 91.6 fL (80.0-94.0); MEAN CORPUSCULAR HEMOGLOBIN 29.7 pg (27.0-31.0); MEAN CORPUSCULAR HGB CONC 32.4 g/dL (33.0-37.0); MEAN PLATELET VOLUME 8.9 fL (7.2-11.7); MONO % 14.5 % (0.0-10.0); NEUT # 5.1 K/uL (1.8-7.0); NRBC % 0.1 % (0.0-2.0); PLATELET COUNT 73 K/uL (130-400); RBC 3.68 Mil/uL (4.40-5.90); RED CELL DISTRIBUTION WIDTH 14.7 % (11.5-14.5); WHITE BLOOD COUNT 6.8 K/uL (4.8-10.8)
[2018-11-11 06:25] LABS: ALB/GLOB RATIO 1.1 (1.0-2.1); ALBUMIN 3.2 g/dL (3.5-5.0)
[2018-11-11] MEDS: (Novolog) Insulin Aspart, Recombinant 100 u/ml 10 ml vial SC SCH ×4 (07:46→22:02)
[2018-11-11 08:00] LABS: BANDS 1 % (0-2); LYMPHOCYTE 9 % (20-40); MONOCYTE 13 % (0-10); NEUTROPHIL 76 % (50-75); PLATELET ESTIMATE DECREASED (NORMAL); REACTIVE LYMPHOCYTES 1 % (0-0); TOTAL CELLS COUNTED 100
[2018-11-11] MEDS: Lidocaine 5% Patch TD SCH (10:02)
[2018-11-11] MEDS: Metoprolol Succinate 100 mg XL Tab PO SCH (10:02)
[2018-11-11] MEDS: Pantoprazole 40 mg EC Tab PO SCH (10:02)
[2018-11-11] MEDS: Aritificial Tears (15ml) OU SCH ×2 (10:05→17:44)
[2018-11-11] MEDS: Calcium Carbonate 500 mg Chewable Antacid Tab PO SCH ×2 (10:10→17:44)
--- NOTE | 2018-11-11 12:19 | CP.PCM.PN ---
Subjective - Date & Time of Evaluation Date of Evaluation: 11/11/18 Time of Evaluation: 09:30 - Subjective Subjective: clinically same Objective - Vital Signs/Intake and Output Vital Signs (last 24 hours): Temp Pulse Resp BP Pulse Ox 98.2 F 85 18 137/70 94 L 11/11/18 07:00 11/11/18 07:30 11/11/18 07:00 11/11/18 07:00 11/11/18 07:00 Intake and Output: 11/11/18 11/11/18 06:59 18:59 Output Total 200 Balance -200 - Medications Medications: Current Medications Amlodipine Besylate (Norvasc) 10 mg PO DAILY [facility] Last Admin: 11/11/18 10:02 Dose: 10 mg Artificial Tears (Artificial Tears) 0 ml OU BID [facility] Last Admin: 11/11/18 10:05 Dose: 1 drop Calcium Carbonate (Tums) 500 mg PO BID [facility] Last Admin: 11/11/18 10:10 Dose: 500 mg Hydralazine HCl (Apresoline) 50 mg PO BID [facility] Last Admin: 11/11/18 10:02 Dose: 50 mg Hydrochlorothiazide (Hydrodiuril) 25 mg PO DAILY [facility] Last Admin: 11/11/18 10:02 Dose: 25 mg Metronidazole (Flagyl) 500 mg in 100 mls @ 100 mls/hr IVPB Q8H [facility]; Protocol Last Admin: 11/11/18 02:48 Dose: 100 mls/hr Meropenem 500 mg/ Sodium (Chloride) 100 mls @ 100 mls/hr IVPB Q12H [facility]; Protocol Last Admin: 11/11/18 01:29 Dose: 100 mls/hr Insulin Aspart (Novolog) 0 unit SC ACHS [facility]; Protocol Last Admin: 11/11/18 12:15 Dose: 3 unit Lidocaine (Lidoderm) 2 ea TD DAILY [facility] Last Admin: 11/11/18 10:02 Dose: 2 ea Losartan Potassium (Cozaar) 25 mg PO DAILY [facility] Last Admin: 11/11/18 10:02 Dose: 25 mg Metoprolol Succinate (Toprol Xl) 100 mg PO DAILY [facility] Last Admin: 11/11/18 10:02 Dose: 100 mg Pantoprazole Sodium (Protonix Ec Tab) 40 mg PO DAILY [facility] Last Admin: 11/11/18 10:02 Dose: 40 mg - Labs Labs: 11/11/18 06:05 11/11/18 06:05 PT 15.2 SECONDS (9.7-12.2) H 10/27/18 03:32 INR 1.4 10/27/18 03:32 APTT 66 SECONDS (21-34) H 10/27/18 03:32
--- NOTE | 2018-11-11 13:20 | CP.PCM.CON ---
History of Present Illness - History of Present Illness History of Present Illness: 78 year old male with a history of HTN, DM, HL, CAD s/p CABG admitted with ruptured appendicitis on antibiotics with anemia and thrombocytopenia. The patient notes to improvement inhis abdominal pain. He is unaware of blood problems in the past. He denies abnormal bleeding and bruising. He does drink alcohol daily. Past medical history: HTN, DM, HL, CAD s/p CABG Past surgical history: CABG Family history: Denies hematologic and oncologic problems Social history: Former tobacco, drinks beer daily. Allergies: NKA Review of systems: All remaining review of systems including HEENT, cardiovascular, respiratory, gastrointestinal, genitourinary, musculoskeletal, dermatologic, neurologic, and psychiatric are negative unless mentioned in the HPI. Past Patient History - Infectious Disease Hx of Infectious Diseases: None - Past Medical History & Family History Past Medical History?: Yes - Past Social History Smoking Status: Former Smoker - CARDIAC Hx Hypercholesterolemia: Yes Hx Hypertension: Yes - PULMONARY Hx Bronchitis: Yes - NEUROLOGICAL HX Cerebrovascular Accident: Yes - HEENT Hx HEENT Problems: No - RENAL Hx Chronic Kidney Disease: No - ENDOCRINE/METABOLIC Hx Diabetes Mellitus Type 2: Yes - HEMATOLOGICAL/ONCOLOGICAL Hx Blood Disorders: Yes Hx Blood Transfusions: Yes Hx Blood Transfusion Reaction: No - INTEGUMENTARY Hx Dermatological Problems: No - MUSCULOSKELETAL/RHEUMATOLOGICAL Hx Falls: No - GASTROINTESTINAL Hx Gastrointestinal Disorders: Yes - GENITOURINARY/GYNECOLOGICAL Hx Genitourinary Disorders: No - PSYCHIATRIC Hx Substance Use: No - SURGICAL HISTORY Hx Cholecystectomy: Yes Hx Coronary Artery Bypass Graft: Yes (2011) - ANESTHESIA Hx Anesthesia: Yes Hx Anesthesia Reactions: No Hx Malignant Hyperthermia: No Meds Allergies/Adverse Reactions: Allergies Allergy/AdvReac Type Severity Reaction Status Date / Time No Known Allergies Allergy Verified 10/23/18 19:42 - Medications Medications: Current Medications Amlodipine Besylate (Norvasc) 10 mg PO DAILY [facility] Last Admin: 11/11/18 10:02 Dose: 10 mg Artificial Tears (Artificial Tears) 0 ml OU BID [facility] Last Admin: 11/11/18 10:05 Dose: 1 drop Calcium Carbonate (Tums) 500 mg PO BID [facility] Last Admin: 11/11/18 10:10 Dose: 500 mg Hydralazine HCl (Apresoline) 50 mg PO BID [facility] Last Admin: 11/11/18 10:02 Dose: 50 mg Hydrochlorothiazide (Hydrodiuril) 25 mg PO DAILY [facility] Last Admin: 11/11/18 10:02 Dose: 25 mg Metronidazole (Flagyl) 500 mg in 100 mls @ 100 mls/hr IVPB Q8H [facility]; Protocol Last Admin: 11/11/18 11:30 Dose: 100 mls/hr Meropenem 500 mg/ Sodium (Chloride) 100 mls @ 100 mls/hr IVPB Q12H [facility]; Protocol Last Admin: 11/11/18 01:29 Dose: 100 mls/hr Insulin Aspart (Novolog) 0 unit SC ACHS [facility]; Protocol Last Admin: 11/11/18 12:15 Dose: 3 unit Lidocaine (Lidoderm) 2 ea TD DAILY [facility] Last Admin: 11/11/18 10:02 Dose: 2 ea Losartan Potassium (Cozaar) 25 mg PO DAILY [facility] Last Admin: 11/11/18 10:02 Dose: 25 mg Metoprolol Succinate (Toprol Xl) 100 mg PO DAILY [facility] Last Admin: 11/11/18 10:02 Dose: 100 mg Pantoprazole Sodium (Protonix Ec Tab) 40 mg PO DAILY [facility] Last Admin: 11/11/18 10:02 Dose: 40 mg Physical Exam - Head Exam Head Exam: ATRAUMATIC - Eye Exam Eye Exam: Normal appearance - ENT Exam ENT Exam: Mucous Membranes Dry - Respiratory Exam Respiratory Exam: NORMAL BREATHING PATTERN - Cardiovascular Exam Cardiovascular Exam: +S1, +S2 - GI/Abdominal Exam GI & Abdominal Exam: Normal Bowel Sounds - Extremities Exam Extremities exam: Positive for: pedal edema - Neurological Exam Neurological exam: Oriented x3 - Psychiatric Exam Psychiatric exam: Normal Affect, Normal Mood - Skin Skin Exam: Warm Results - Vital Signs Recent Vital Signs: Last Vital Signs Temp 98.2 F 11/11/18 07:00 Pulse 85 11/11/18 07:30 Resp 18 11/11/18 07:00 BP 137/70 11/11/18 07:00 Pulse Ox 94 L 11/11/18 07:00 - Labs Result Diagrams: 11/11/18 06:05 11/11/18 06:05 Labs: Laboratory Results - last 24 hr 11/10/18 11/10/18 11/11/18 16:26 21:39 02:05 WBC RBC Hgb Hct MCV MCH MCHC RDW Plt Count MPV Neut % (Auto) Lymph % (Auto) Hall % (Auto) Eos % (Auto) Baso % (Auto) Neut # (Auto) Lymph # (Auto) Hall # (Auto) Eos # (Auto) Baso # (Auto) Neutrophils % (Manual) Band Neutrophils % Lymphocytes % (Manual) Reactive Lymphs % Monocytes % (Manual) Platelet Estimate RBC Morphology Sodium Potassium Chloride Carbon Dioxide Anion Gap BUN Creatinine Est GFR ( Amer) Est GFR (Non-Af Amer) POC Glucose (mg/dL) 246 H 231 H 227 H Random Glucose Calcium Phosphorus Magnesium Total Bilirubin AST ALT Alkaline Phosphatase Total Protein Albumin Globulin Albumin/Globulin Ratio 11/11/18 11/11/18 11/11/18 06:05 06:05 06:09 WBC 6.8 RBC 3.68 L Hgb 10.9 L Hct 33.7 L MCV 91.6 MCH 29.7 MCHC 32.4 L RDW 14.7 H Plt Count 73 L MPV 8.9 Neut % (Auto) 75.0 Lymph % (Auto) 8.9 L Hall % (Auto) 14.5 H Eos % (Auto) 1.1 Baso % (Auto) 0.5 Neut # (Auto) 5.1 Lymph # (Auto) 0.6 L Hall # (Auto) 1.0 H Eos # (Auto) 0.1 Baso # (Auto) 0.0 Neutrophils % (Manual) 76 H Band Neutrophils % 1 Lymphocytes % (Manual) 9 L Reactive Lymphs % 1 H Monocytes % (Manual) 13 H Platelet Estimate Decreased L RBC Morphology Normal Sodium 129 L Potassium 5.0 Chloride 92 L Carbon Dioxide 31 H Anion Gap 11 BUN 31 H Creatinine 1.4 Est GFR ( Amer) 59 Est GFR (Non-Af Amer) 49 POC Glucose (mg/dL) 275 H Random Glucose 246 H Calcium 8.0 L Phosphorus 3.8 Magnesium 2.0 Total Bilirubin 0.5 AST 14 L ALT 17 L D Alkaline Phosphatase 55 Total Protein 6.0 L Albumin 3.2 L Globulin 2.8 Albumin/Globulin Ratio 1.1 11/11/18 11:20 WBC RBC Hgb Hct MCV MCH MCHC RDW Plt Count MPV Neut % (Auto) Lymph % (Auto) Hall % (Auto) Eos % (Auto) Baso % (Auto) Neut # (Auto) Lymph # (Auto) Hall # (Auto) Eos # (Auto) Baso # (Auto) Neutrophils % (Manual) Band Neutrophils % Lymphocytes % (Manual) Reactive Lymphs % Monocytes % (Manual) Platelet Estimate RBC Morphology Sodium Potassium Chloride Carbon Dioxide Anion Gap BUN Creatinine Est GFR ( Amer) Est GFR (Non-Af Amer) POC Glucose (mg/dL) 211 H Random Glucose Calcium Phosphorus Magnesium Total Bilirubin AST ALT Alkaline Phosphatase Total Protein Albumin Globulin Albumin/Globulin Ratio Assessment & Plan (1) Thrombocytopenia Assessment and Plan: likely infection related ? antibiotics will rule out HIT cont. to monitor Status: Acute (2) Anemia Assessment and Plan: retic count, b12, folate, ferritin Thank you for this interesting consult. Status: Acute
--- NOTE | 2018-11-11 15:17 | CP.PCM.PN ---
Subjective - Date & Time of Evaluation Date of Evaluation: 11/11/18 Time of Evaluation: 08:00 - Subjective Subjective: IV rx renewed Objective - Vital Signs/Intake and Output Vital Signs (last 24 hours): Temp Pulse Resp BP Pulse Ox 98.2 F 85 18 137/70 94 L 11/11/18 07:00 11/11/18 07:30 11/11/18 07:00 11/11/18 07:00 11/11/18 07:00 Intake and Output: 11/11/18 11/11/18 06:59 18:59 Output Total 200 Balance -200 - Medications Medications: Current Medications Amlodipine Besylate (Norvasc) 10 mg PO DAILY [facility] Last Admin: 11/11/18 10:02 Dose: 10 mg Artificial Tears (Artificial Tears) 0 ml OU BID [facility] Last Admin: 11/11/18 10:05 Dose: 1 drop Calcium Carbonate (Tums) 500 mg PO BID [facility] Last Admin: 11/11/18 10:10 Dose: 500 mg Hydralazine HCl (Apresoline) 50 mg PO BID [facility] Last Admin: 11/11/18 10:02 Dose: 50 mg Hydrochlorothiazide (Hydrodiuril) 25 mg PO DAILY [facility] Last Admin: 11/11/18 10:02 Dose: 25 mg Metronidazole (Flagyl) 500 mg in 100 mls @ 100 mls/hr IVPB Q8H [facility]; Protocol Last Admin: 11/11/18 11:30 Dose: 100 mls/hr Meropenem 500 mg/ Sodium (Chloride) 100 mls @ 100 mls/hr IVPB Q12H [facility]; Protocol Last Admin: 11/11/18 13:15 Dose: 100 mls/hr Insulin Aspart (Novolog) 0 unit SC ACHS [facility]; Protocol Last Admin: 11/11/18 12:15 Dose: 3 unit Lidocaine (Lidoderm) 2 ea TD DAILY [facility] Last Admin: 11/11/18 10:02 Dose: 2 ea Losartan Potassium (Cozaar) 25 mg PO DAILY [facility] Last Admin: 11/11/18 10:02 Dose: 25 mg Metoprolol Succinate (Toprol Xl) 100 mg PO DAILY [facility] Last Admin: 11/11/18 10:02 Dose: 100 mg Pantoprazole Sodium (Protonix Ec Tab) 40 mg PO DAILY [facility] Last Admin: 11/11/18 10:02 Dose: 40 mg - Labs Labs: 11/11/18 06:05 11/11/18 06:05 PT 15.2 SECONDS (9.7-12.2) H 10/27/18 03:32 INR 1.4 10/27/18 03:32 APTT 66 SECONDS (21-34) H 10/27/18 03:32 - Constitutional Appears: Non-toxic, Chronically Ill - Head Exam Head Exam: NORMOCEPHALIC - Eye Exam Eye Exam: absent: Scleral icterus - ENT Exam ENT Exam: Mucous Membranes Dry - Neck Exam Neck Exam: absent: Lymphadenopathy - Respiratory Exam Respiratory Exam: Decreased Breath Sounds - Cardiovascular Exam Cardiovascular Exam: REGULAR RHYTHM, +S1, +S2 - GI/Abdominal Exam GI & Abdominal Exam: Distended, Soft. absent: Tenderness - Rectal Exam Rectal Exam: Deferred - Exam Exam: NORMAL INSPECTION - Extremities Exam Extremities Exam: Pedal Edema - Back Exam Back Exam: absent: CVA tenderness (L), CVA tenderness (R) - Neurological Exam Neurological Exam: Alert, Awake, CN II-XII Intact, Oriented x3 - Psychiatric Exam Psychiatric exam: Depressed - Skin Skin Exam: Dry Assessment and Plan (1) Abdominal pain Status: Acute (2) Acute appendicitis with rupture Status: Acute - Assessment and Plan (Free Text) Assessment: cont iv rx as ordered
--- NOTE | 2018-11-11 18:25 | CP.PCM.PN ---
Objective - Vital Signs/Intake and Output Vital Signs (last 24 hours): Temp Pulse Resp BP Pulse Ox 97.9 F 86 20 128/69 96 11/11/18 15:00 11/11/18 18:00 11/11/18 15:00 11/11/18 15:00 11/11/18 15:00 Intake and Output: 11/11/18 11/11/18 06:59 18:59 Output Total 200 Balance -200 - Medications Medications: Current Medications Amlodipine Besylate (Norvasc) 10 mg PO DAILY [facility] Last Admin: 11/11/18 10:02 Dose: 10 mg Artificial Tears (Artificial Tears) 0 ml OU BID [facility] Last Admin: 11/11/18 17:44 Dose: 1 drop Calcium Carbonate (Tums) 500 mg PO BID [facility] Last Admin: 11/11/18 17:44 Dose: 500 mg Hydralazine HCl (Apresoline) 50 mg PO BID [facility] Last Admin: 11/11/18 17:44 Dose: 50 mg Hydrochlorothiazide (Hydrodiuril) 25 mg PO DAILY [facility] Last Admin: 11/11/18 10:02 Dose: 25 mg Metronidazole (Flagyl) 500 mg in 100 mls @ 100 mls/hr IVPB Q8H [facility]; Protocol Last Admin: 11/11/18 11:30 Dose: 100 mls/hr Meropenem 500 mg/ Sodium (Chloride) 100 mls @ 100 mls/hr IVPB Q12H [facility]; Protocol Last Admin: 11/11/18 13:15 Dose: 100 mls/hr Insulin Aspart (Novolog) 0 unit SC ACHS [facility]; Protocol Last Admin: 11/11/18 17:00 Dose: 3 unit Lidocaine (Lidoderm) 2 ea TD DAILY [facility] Last Admin: 11/11/18 10:02 Dose: 2 ea Losartan Potassium (Cozaar) 25 mg PO DAILY [facility] Last Admin: 11/11/18 10:02 Dose: 25 mg Metoprolol Succinate (Toprol Xl) 100 mg PO DAILY [facility] Last Admin: 11/11/18 10:02 Dose: 100 mg Pantoprazole Sodium (Protonix Ec Tab) 40 mg PO DAILY [facility] Last Admin: 11/11/18 10:02 Dose: 40 mg - Labs Labs: 11/11/18 06:05 11/11/18 06:05 PT 15.2 SECONDS (9.7-12.2) H 10/27/18 03:32 INR 1.4 10/27/18 03:32 APTT 66 SECONDS (21-34) H 10/27/18 03:32 Assessment and Plan (1) Abdominal pain Status: Acute (2) Acute appendicitis with rupture Status: Acute (3) CVA (cerebral vascular accident) Status: Acute (4) Diabetes mellitus Status: Chronic (5) RILEY (acute kidney injury) Status: Resolved (6) Acute respiratory failure with hypercapnia Status: Resolved
--- NOTE | 2018-11-11 20:44 | CP.PCM.PN ---
Subjective - Date & Time of Evaluation Date of Evaluation: 11/11/18 Time of Evaluation: 17:00 - Subjective Subjective: Patient seen and examined at bedside this morning. No Cardiac events noted Denies chest pain and dyspnea Physical Examination - Constitutional Appears: Well, Non-toxic, No Acute Distress - Head Exam Head Exam: ATRAUMATIC, NORMAL INSPECTION, NORMOCEPHALIC - Eye Exam Eye Exam: EOMI, Normal appearance - ENT Exam ENT Exam: Mucous Membranes Moist - Respiratory Exam Respiratory Exam: NORMAL BREATHING PATTERN. absent: Accessory Muscle Use, Wheezes, Respiratory Distress - Cardiovascular Exam Cardiovascular Exam: RRR. absent: JVD - GI/Abdominal Exam GI & Abdominal Exam: Soft. absent: Distended, Firm, Guarding, Rigid, Tenderness, Rebound - Extremities Exam Extremities Exam: Normal Inspection. absent: Calf Tenderness - Neurological Exam Neurological Exam: Alert, Awake, Oriented x3 - Psychiatric Exam Psychiatric exam: Normal Affect, Normal Mood - Skin Skin Exam: Dry, Intact, Normal Color, Warm Assessment and Plan - Assessment and Plan (Free Text) Assessment: 78yo M with ruptured Appendicitis, hypercapnic respiratory failure (resolved), and acute on chronic renal failure (resolving) Hx of CAD Medical management Objective - Vital Signs/Intake and Output Vital Signs (last 24 hours): Temp Pulse Resp BP Pulse Ox 97.9 F 86 20 128/69 96 11/11/18 15:00 11/11/18 18:00 11/11/18 15:00 11/11/18 15:00 11/11/18 15:00 - Medications Medications: Current Medications Amlodipine Besylate (Norvasc) 10 mg PO DAILY [facility] Last Admin: 11/11/18 10:02 Dose: 10 mg Artificial Tears (Artificial Tears) 0 ml OU BID [facility] Last Admin: 11/11/18 17:44 Dose: 1 drop Calcium Carbonate (Tums) 500 mg PO BID [facility] Last Admin: 11/11/18 17:44 Dose: 500 mg Hydralazine HCl (Apresoline) 50 mg PO BID [facility] Last Admin: 11/11/18 17:44 Dose: 50 mg Hydrochlorothiazide (Hydrodiuril) 25 mg PO DAILY [facility] Last Admin: 11/11/18 10:02 Dose: 25 mg Metronidazole (Flagyl) 500 mg in 100 mls @ 100 mls/hr IVPB Q8H [facility]; Protocol Last Admin: 11/11/18 11:30 Dose: 100 mls/hr Meropenem 500 mg/ Sodium (Chloride) 100 mls @ 100 mls/hr IVPB Q12H [facility]; Protocol Last Admin: 11/11/18 13:15 Dose: 100 mls/hr Insulin Aspart (Novolog) 0 unit SC ACHS [facility]; Protocol Last Admin: 11/11/18 17:00 Dose: 3 unit Lidocaine (Lidoderm) 2 ea TD DAILY [facility] Last Admin: 11/11/18 10:02 Dose: 2 ea Losartan Potassium (Cozaar) 25 mg PO DAILY [facility] Last Admin: 11/11/18 10:02 Dose: 25 mg Metoprolol Succinate (Toprol Xl) 100 mg PO DAILY [facility] Last Admin: 11/11/18 10:02 Dose: 100 mg Pantoprazole Sodium (Protonix Ec Tab) 40 mg PO DAILY [facility] Last Admin: 11/11/18 10:02 Dose: 40 mg - Labs Labs: 11/11/18 06:05 11/11/18 06:05 PT 15.2 SECONDS (9.7-12.2) H 10/27/18 03:32 INR 1.4 10/27/18 03:32 APTT 66 SECONDS (21-34) H 10/27/18 03:32
[2018-11-12] MEDS: Meropenem 500 MG in Sodium Chloride 0.9% 100 ML IVPB SCH ×2 (01:27→13:35)
[2018-11-12] MEDS: metroNIDAZOLE IV 500 mg/100 ml 500 MG/100 ML BAG IVPB SCH ×3 (03:16→18:11)
[2018-11-12 07:17] LABS: BASO % 0.4 % (0.0-2.0); EOS # 0.1 K/uL (0.0-0.7); EOS % 0.8 % (0.0-4.0); HEMOGLOBIN 11.2 g/dL (12.0-18.0); LYMPH # 0.6 K/uL (1.0-4.3); LYMPH % 7.5 % (20.0-40.0); MEAN CELL VOLUME 91.7 fL (80.0-94.0); MEAN CORPUSCULAR HEMOGLOBIN 30.1 pg (27.0-31.0); MEAN CORPUSCULAR HGB CONC 32.8 g/dL (33.0-37.0); MEAN PLATELET VOLUME 8.5 fL (7.2-11.7); MONO # 0.9 K/uL (0.0-0.8); MONO % 12.6 % (0.0-10.0); NEUT # 5.9 K/uL (1.8-7.0); NEUT % 78.7 % (50.0-75.0); PLATELET COUNT 77 K/uL (130-400); RBC 3.71 Mil/uL (4.40-5.90); RED CELL DISTRIBUTION WIDTH 14.2 % (11.5-14.5); WHITE BLOOD COUNT 7.5 K/uL (4.8-10.8)
[2018-11-12 07:28] LABS: ALB/GLOB RATIO 1.1 (1.0-2.1); ALBUMIN 3.3 g/dL (3.5-5.0); CALCIUM 8.7 mg/dl (8.6-10.4)
[2018-11-12] MEDS: (Novolog) Insulin Aspart, Recombinant 100 u/ml 10 ml vial SC SCH ×4 (07:47→21:40)
[2018-11-12 07:57] LABS: HEPATITIS B SURFACE AG Negative (NEGATIVE)
[2018-11-12 08:03] LABS: HEPATITIS A IGM NEGATIVE (NEGATIVE); HEPATITIS B CORE AB NEGATIVE (NEGATIVE)
[2018-11-12 08:15] LABS: HEPATITIS C ANTIBODY NEGATIVE (NEGATIVE)
[2018-11-12 08:30] LABS: FOLATE 6.4 ng/mL
[2018-11-12 09:04] LABS: ANISOCYTOSIS SLIGHT; BANDS 1 % (0-2); LYMPHOCYTE 7 % (20-40); MONOCYTE 12 % (0-10); NEUTROPHIL 80 % (50-75); PLATELET ESTIMATE DECREASED (NORMAL); TOTAL CELLS COUNTED 100
[2018-11-12 09:05] LABS: HYPOCHROMIC SLIGHT; PLATELET CLUMPS PRESENT; POLYCHROMIC SLIGHT
[2018-11-12] MEDS: Metoprolol Succinate 100 mg XL Tab PO SCH (09:57)
[2018-11-12] MEDS: Pantoprazole 40 mg EC Tab PO SCH (09:57)
[2018-11-12] MEDS: Calcium Carbonate 500 mg Chewable Antacid Tab PO SCH ×2 (09:57→17:44)
[2018-11-12] MEDS: Aritificial Tears (15ml) OU SCH ×2 (10:01→17:44)
[2018-11-12] MEDS: Lidocaine 5% Patch TD SCH (10:02)
--- NOTE | 2018-11-12 16:00 | CP.PCM.PN ---
Subjective - Date & Time of Evaluation Date of Evaluation: 11/12/18 Time of Evaluation: 08:45 - Subjective Subjective: clinically same Objective - Vital Signs/Intake and Output Vital Signs (last 24 hours): Temp Pulse Resp BP Pulse Ox 98.2 F 90 18 112/63 95 11/12/18 07:00 11/12/18 07:00 11/12/18 07:00 11/12/18 07:00 11/12/18 07:00 Intake and Output: 11/12/18 11/12/18 06:59 18:59 Output Total 350 Balance -350 - Medications Medications: Current Medications Amlodipine Besylate (Norvasc) 10 mg PO DAILY [facility] Last Admin: 11/12/18 09:57 Dose: 10 mg Artificial Tears (Artificial Tears) 0 ml OU BID [facility] Last Admin: 11/12/18 10:01 Dose: 1 drop Calcium Carbonate (Tums) 500 mg PO BID [facility] Last Admin: 11/12/18 09:57 Dose: 500 mg Hydralazine HCl (Apresoline) 50 mg PO BID [facility] Last Admin: 11/12/18 09:57 Dose: 50 mg Hydrochlorothiazide (Hydrodiuril) 25 mg PO DAILY [facility] Last Admin: 11/12/18 09:57 Dose: 25 mg Metronidazole (Flagyl) 500 mg in 100 mls @ 100 mls/hr IVPB Q8H [facility]; Protocol Last Admin: 11/12/18 11:00 Dose: 100 mls/hr Meropenem 500 mg/ Sodium (Chloride) 100 mls @ 100 mls/hr IVPB Q12H [facility]; Protocol Last Admin: 11/12/18 13:35 Dose: 100 mls/hr Insulin Aspart (Novolog) 0 unit SC ACHS [facility]; Protocol Last Admin: 11/12/18 11:50 Dose: 3 unit Lidocaine (Lidoderm) 2 ea TD DAILY [facility] Last Admin: 11/12/18 10:02 Dose: 2 ea Losartan Potassium (Cozaar) 25 mg PO DAILY [facility] Last Admin: 11/12/18 09:57 Dose: 25 mg Metoprolol Succinate (Toprol Xl) 100 mg PO DAILY [facility] Last Admin: 11/12/18 09:57 Dose: 100 mg Pantoprazole Sodium (Protonix Ec Tab) 40 mg PO DAILY [facility] Last Admin: 11/12/18 09:57 Dose: 40 mg - Labs Labs: 11/12/18 07:03 11/12/18 07:03 PT 15.2 SECONDS (9.7-12.2) H 10/27/18 03:32 INR 1.4 10/27/18 03:32 APTT 66 SECONDS (21-34) H 10/27/18 03:32
--- NOTE | 2018-11-12 22:00 | CP.PCM.PN ---
Subjective - Date & Time of Evaluation Date of Evaluation: 11/12/18 Time of Evaluation: 17:15 - Subjective Subjective: Patient seen and evaluated denies chest pain and dyspnea Physical Examination - Constitutional Appears: Well, Non-toxic, No Acute Distress - Head Exam Head Exam: ATRAUMATIC, NORMAL INSPECTION, NORMOCEPHALIC - Eye Exam Eye Exam: EOMI, Normal appearance - ENT Exam ENT Exam: Mucous Membranes Moist - Respiratory Exam Respiratory Exam: NORMAL BREATHING PATTERN. absent: Accessory Muscle Use, Wheezes, Respiratory Distress - Cardiovascular Exam Cardiovascular Exam: RRR. absent: JVD - GI/Abdominal Exam GI & Abdominal Exam: Soft. absent: Distended, Firm, Guarding, Rigid, Tenderness, Rebound - Extremities Exam Extremities Exam: Normal Inspection. absent: Calf Tenderness - Neurological Exam Neurological Exam: Alert, Awake, Oriented x3 - Psychiatric Exam Psychiatric exam: Normal Affect, Normal Mood - Skin Skin Exam: Dry, Intact, Normal Color, Warm Assessment and Plan - Assessment and Plan (Free Text) Assessment: 78yo M with ruptured Appendicitis, hypercapnic respiratory failure (resolved), and acute on chronic renal failure (resolving) Hx of CAD Medical management Objective - Vital Signs/Intake and Output Vital Signs (last 24 hours): Temp Pulse Resp BP Pulse Ox 98 F 87 20 149/73 99 11/12/18 15:00 11/12/18 16:00 11/12/18 15:00 11/12/18 15:00 11/12/18 15:00 - Medications Medications: Current Medications Amlodipine Besylate (Norvasc) 10 mg PO DAILY [facility] Last Admin: 11/12/18 09:57 Dose: 10 mg Artificial Tears (Artificial Tears) 0 ml OU BID [facility] Last Admin: 11/12/18 17:44 Dose: 1 drop Calcium Carbonate (Tums) 500 mg PO BID [facility] Last Admin: 11/12/18 17:44 Dose: 500 mg Hydralazine HCl (Apresoline) 50 mg PO BID [facility] Last Admin: 11/12/18 17:44 Dose: 50 mg Hydrochlorothiazide (Hydrodiuril) 25 mg PO DAILY [facility] Last Admin: 11/12/18 09:57 Dose: 25 mg Metronidazole (Flagyl) 500 mg in 100 mls @ 100 mls/hr IVPB Q8H [facility]; Protocol Last Admin: 11/12/18 18:11 Dose: 100 mls/hr Meropenem 500 mg/ Sodium (Chloride) 100 mls @ 100 mls/hr IVPB Q12H [facility]; Protocol Last Admin: 11/12/18 13:35 Dose: 100 mls/hr Insulin Aspart (Novolog) 0 unit SC ACHS [facility]; Protocol Last Admin: 11/12/18 21:40 Dose: Not Given Lidocaine (Lidoderm) 2 ea TD DAILY [facility] Last Admin: 11/12/18 10:02 Dose: 2 ea Losartan Potassium (Cozaar) 25 mg PO DAILY [facility] Last Admin: 11/12/18 09:57 Dose: 25 mg Metoprolol Succinate (Toprol Xl) 100 mg PO DAILY [facility] Last Admin: 11/12/18 09:57 Dose: 100 mg Pantoprazole Sodium (Protonix Ec Tab) 40 mg PO DAILY [facility] Last Admin: 11/12/18 09:57 Dose: 40 mg - Labs Labs: 11/12/18 07:03 11/12/18 07:03 PT 15.2 SECONDS (9.7-12.2) H 10/27/18 03:32 INR 1.4 10/27/18 03:32 APTT 66 SECONDS (21-34) H 10/27/18 03:32
[2018-11-13] MEDS: Meropenem 500 MG in Sodium Chloride 0.9% 100 ML IVPB SCH (02:31)
[2018-11-13] MEDS: metroNIDAZOLE IV 500 mg/100 ml 500 MG/100 ML BAG IVPB SCH ×2 (03:34→18:30)
[2018-11-13 06:42] LABS: BASO % 0.2 % (0.0-2.0); EOS # 0.1 K/uL (0.0-0.7); EOS % 1.1 % (0.0-4.0); HEMOGLOBIN 10.6 g/dL (12.0-18.0); LYMPH # 0.6 K/uL (1.0-4.3); LYMPH % 8.3 % (20.0-40.0); MEAN CELL VOLUME 91.8 fL (80.0-94.0); MEAN CORPUSCULAR HEMOGLOBIN 29.7 pg (27.0-31.0); MEAN CORPUSCULAR HGB CONC 32.4 g/dL (33.0-37.0); MEAN PLATELET VOLUME 7.9 fL (7.2-11.7); MONO # 0.9 K/uL (0.0-0.8); MONO % 12.2 % (0.0-10.0); NEUT # 5.6 K/uL (1.8-7.0); NEUT % 78.2 % (50.0-75.0); PLATELET COUNT 84 K/uL (130-400); RBC 3.55 Mil/uL (4.40-5.90); RED CELL DISTRIBUTION WIDTH 14.1 % (11.5-14.5); WHITE BLOOD COUNT 7.2 K/uL (4.8-10.8)
[2018-11-13 07:12] LABS: ALBUMIN 3.2 g/dL (3.5-5.0); ALT/SGPT 20 U/L (21-72); AST/SGOT 15 U/L (17-59); BLOOD UREA NITROGEN 27 mg/dL (9-20); CALCIUM 8.6 mg/dl (8.6-10.4); GFR NON-AFRICAN AMERICAN 54
[2018-11-13 09:04] LABS: LYMPHOCYTE 3 % (20-40); MONOCYTE 8 % (0-10); NEUTROPHIL 89 % (50-75); TOTAL CELLS COUNTED 100
[2018-11-13 09:05] LABS: PLATELET ESTIMATE DECREASED (NORMAL)
[2018-11-13 09:07] LABS: HYPOCHROMIC SLIGHT; POLYCHROMIC SLIGHT
[2018-11-13] MEDS: Aritificial Tears (15ml) OU SCH ×2 (10:22→18:29)
[2018-11-13] MEDS: (Novolog) Insulin Aspart, Recombinant 100 u/ml 10 ml vial SC SCH ×2 (10:27→18:30)
[2018-11-13 15:37] VITALS: RESP 20
--- NOTE | 2018-11-13 15:41 | CP.PCM.PN ---
Subjective - Date & Time of Evaluation Date of Evaluation: 11/13/18 Time of Evaluation: 10:00 - Subjective Subjective: afebrile alert nad Objective - Vital Signs/Intake and Output Vital Signs (last 24 hours): Temp Pulse Resp BP Pulse Ox 98.2 F 90 20 125/62 95 11/13/18 15:33 11/13/18 15:33 11/13/18 15:33 11/13/18 15:33 11/13/18 15:33 - Medications Medications: Current Medications Amlodipine Besylate (Norvasc) 10 mg PO DAILY [facility] Last Admin: 11/13/18 10:39 Dose: 10 mg Artificial Tears (Artificial Tears) 0 ml OU BID [facility] Last Admin: 11/13/18 10:22 Dose: 1 drop Calcium Carbonate (Tums) 500 mg PO BID [facility] Last Admin: 11/12/18 17:44 Dose: 500 mg Hydralazine HCl (Apresoline) 50 mg PO BID [facility] Last Admin: 11/12/18 17:44 Dose: 50 mg Hydrochlorothiazide (Hydrodiuril) 25 mg PO DAILY [facility] Last Admin: 11/12/18 09:57 Dose: 25 mg Metronidazole (Flagyl) 500 mg in 100 mls @ 100 mls/hr IVPB Q8H [facility]; Protocol Last Admin: 11/13/18 03:34 Dose: 100 mls/hr Meropenem 500 mg/ Sodium (Chloride) 100 mls @ 100 mls/hr IVPB Q12H [facility]; Protocol Last Admin: 11/13/18 02:31 Dose: 100 mls/hr Insulin Aspart (Novolog) 0 unit SC ACHS [facility]; Protocol Last Admin: 11/13/18 10:27 Dose: 2 unit Lidocaine (Lidoderm) 2 ea TD DAILY [facility] Last Admin: 11/12/18 10:02 Dose: 2 ea Losartan Potassium (Cozaar) 25 mg PO DAILY [facility] Last Admin: 11/12/18 09:57 Dose: 25 mg Metoprolol Succinate (Toprol Xl) 100 mg PO DAILY [facility] Last Admin: 11/12/18 09:57 Dose: 100 mg Pantoprazole Sodium (Protonix Ec Tab) 40 mg PO DAILY [facility] Last Admin: 11/12/18 09:57 Dose: 40 mg - Labs Labs: 11/13/18 06:28 11/13/18 06:28 PT 15.2 SECONDS (9.7-12.2) H 10/27/18 03:32 INR 1.4 10/27/18 03:32 APTT 66 SECONDS (21-34) H 10/27/18 03:32 - Constitutional Appears: Non-toxic, Chronically Ill - Head Exam Head Exam: NORMOCEPHALIC - Eye Exam Eye Exam: absent: Scleral icterus - ENT Exam ENT Exam: Mucous Membranes Dry - Neck Exam Neck Exam: absent: Lymphadenopathy - Respiratory Exam Respiratory Exam: Decreased Breath Sounds - Cardiovascular Exam Cardiovascular Exam: REGULAR RHYTHM - GI/Abdominal Exam GI & Abdominal Exam: Distended, Soft - Rectal Exam Rectal Exam: Deferred - Exam Exam: NORMAL INSPECTION - Extremities Exam Extremities Exam: absent: Pedal Edema - Back Exam Back Exam: absent: CVA tenderness (L), CVA tenderness (R) Assessment and Plan (1) Abdominal pain Status: Acute (2) Acute appendicitis with rupture Status: Acute - Assessment and Plan (Free Text) Assessment: cont iv antibiotics
--- NOTE | 2018-11-13 15:52 | CP.PCM.PN ---
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 No acute events overnight. Pt today complaining of left knee pain that began while in the hospital. Patient states he has difficulty ambulating to bathroom due to pain in knee. Denies injury, swelling or inability to bend knee. Denies fevers, chills, CP, SOB, abd pain, N/V/D/C. Objective - Vital Signs/Intake and Output Vital Signs (last 24 hours): Temp Pulse Resp BP Pulse Ox 98.2 F 90 20 125/62 95 11/13/18 15:33 11/13/18 15:33 11/13/18 15:33 11/13/18 15:33 11/13/18 15:33 - Medications Medications: Current Medications Amlodipine Besylate (Norvasc) 10 mg PO DAILY [facility] Last Admin: 11/13/18 10:39 Dose: 10 mg Artificial Tears (Artificial Tears) 0 ml OU BID [facility] Last Admin: 11/13/18 10:22 Dose: 1 drop Calcium Carbonate (Tums) 500 mg PO BID [facility] Last Admin: 11/12/18 17:44 Dose: 500 mg Hydralazine HCl (Apresoline) 50 mg PO BID [facility] Last Admin: 11/12/18 17:44 Dose: 50 mg Hydrochlorothiazide (Hydrodiuril) 25 mg PO DAILY [facility] Last Admin: 11/12/18 09:57 Dose: 25 mg Metronidazole (Flagyl) 500 mg in 100 mls @ 100 mls/hr IVPB Q8H [facility]; Protocol Last Admin: 11/13/18 03:34 Dose: 100 mls/hr Meropenem 500 mg/ Sodium (Chloride) 100 mls @ 100 mls/hr IVPB Q12H [facility]; Protocol Last Admin: 11/13/18 02:31 Dose: 100 mls/hr Insulin Aspart (Novolog) 0 unit SC ACHS [facility]; Protocol Last Admin: 11/13/18 10:27 Dose: 2 unit Lidocaine (Lidoderm) 2 ea TD DAILY [facility] Last Admin: 11/12/18 10:02 Dose: 2 ea Losartan Potassium (Cozaar) 25 mg PO DAILY [facility] Last Admin: 11/12/18 09:57 Dose: 25 mg Metoprolol Succinate (Toprol Xl) 100 mg PO DAILY [facility] Last Admin: 11/12/18 09:57 Dose: 100 mg Pantoprazole Sodium (Protonix Ec Tab) 40 mg PO DAILY [facility] Last Admin: 11/12/18 09:57 Dose: 40 mg - Labs Labs: 11/13/18 06:28 11/13/18 06:28 PT 15.2 SECONDS (9.7-12.2) H 10/27/18 03:32 INR 1.4 10/27/18 03:32 APTT 66 SECONDS (21-34) H 10/27/18 03:32 - Constitutional Appears: Non-toxic, No Acute Distress - Head Exam Head Exam: ATRAUMATIC, NORMOCEPHALIC - ENT Exam ENT Exam: Mucous Membranes Moist - Respiratory Exam Respiratory Exam: Clear to Ausculation Bilateral. absent: Accessory Muscle Use, Rales, Rhonchi, Wheezes, Respiratory Distress - Cardiovascular Exam Cardiovascular Exam: REGULAR RHYTHM, +S1, +S2. absent: Gallop, Rubs, Murmur - GI/Abdominal Exam GI & Abdominal Exam: Soft, Normal Bowel Sounds. absent: Distended, Firm, Guarding, Rigid, Tenderness, Organomegaly - Extremities Exam Extremities Exam: Tenderness (left knee) - Neurological Exam Neurological Exam: Alert, Awake, Oriented x3 - Psychiatric Exam Psychiatric exam: Normal Affect, Normal Mood - Skin Skin Exam: Dry, Intact, Normal Color, Warm Assessment and Plan - Assessment and Plan (Free Text) Assessment: 78yo M with ruptured Appendicitis, hypercapnic respiratory failure (resolved), and acute on chronic renal failure (resolving) and hx of CAD. Cardiology consulted for cardiac clearance for appendectomy. Ruptured appendix - Medical management - Resolving Case discussed with Dr. Yeung. <Darnell Yeung - Last Filed: 11/13/18 20:18> Objective - Vital Signs/Intake and Output Vital Signs (last 24 hours): Temp Pulse Resp BP Pulse Ox 98.2 F 89 20 125/62 95 11/13/18 15:33 11/13/18 16:09 11/13/18 15:33 11/13/18 15:33 11/13/18 15:33 - Medications Medications: Current Medications Amlodipine Besylate (Norvasc) 10 mg PO DAILY [facility] Last Admin: 11/13/18 10:39 Dose: 10 mg Artificial Tears (Artificial Tears) 0 ml OU BID [facility] Last Admin: 11/13/18 18:29 Dose: 1 drop Calcium Carbonate (Tums) 500 mg PO BID [facility] Last Admin: 11/13/18 18:30 Dose: 500 mg Hydralazine HCl (Apresoline) 50 mg PO BID [facility] Last Admin: 11/13/18 18:30 Dose: 50 mg Hydrochlorothiazide (Hydrodiuril) 25 mg PO DAILY [facility] Last Admin: 11/12/18 09:57 Dose: 25 mg Metronidazole (Flagyl) 500 mg in 100 mls @ 100 mls/hr IVPB Q8H [facility]; Protocol Last Admin: 11/13/18 18:30 Dose: 100 mls/hr Meropenem 500 mg/ Sodium (Chloride) 100 mls @ 100 mls/hr IVPB Q12H [facility]; Protocol Last Admin: 11/13/18 02:31 Dose: 100 mls/hr Insulin Aspart (Novolog) 0 unit SC ACHS [facility]; Protocol Last Admin: 11/13/18 18:30 Dose: 3 unit Lidocaine (Lidoderm) 2 ea TD DAILY [facility] Last Admin: 11/12/18 10:02 Dose: 2 ea Losartan Potassium (Cozaar) 25 mg PO DAILY [facility] Last Admin: 11/12/18 09:57 Dose: 25 mg Metoprolol Succinate (Toprol Xl) 100 mg PO DAILY [facility] Last Admin: 11/12/18 09:57 Dose: 100 mg Pantoprazole Sodium (Protonix Ec Tab) 40 mg PO DAILY [facility] Last Admin: 11/12/18 09:57 Dose: 40 mg - Labs Labs: 11/13/18 06:28 11/13/18 06:28 PT 15.2 SECONDS (9.7-12.2) H 10/27/18 03:32 INR 1.4 10/27/18 03:32 APTT 66 SECONDS (21-34) H 10/27/18 03:32 Assessment and Plan - Assessment and Plan (Free Text) Assessment: Patient seen and evaluated personally by me. Plan of care d/w the emergency medicine medical director and as documented
--- NOTE | 2018-11-13 16:55 | CP.PCM.PN ---
Subjective - Date & Time of Evaluation Date of Evaluation: 11/13/18 Time of Evaluation: 16:55 Objective - Vital Signs/Intake and Output Vital Signs (last 24 hours): Temp Pulse Resp BP Pulse Ox 98.2 F 90 20 125/62 95 11/13/18 15:33 11/13/18 15:33 11/13/18 15:33 11/13/18 15:33 11/13/18 15:33 - Medications Medications: Current Medications Amlodipine Besylate (Norvasc) 10 mg PO DAILY [facility] Last Admin: 11/13/18 10:39 Dose: 10 mg Artificial Tears (Artificial Tears) 0 ml OU BID [facility] Last Admin: 11/13/18 10:22 Dose: 1 drop Calcium Carbonate (Tums) 500 mg PO BID [facility] Last Admin: 11/12/18 17:44 Dose: 500 mg Hydralazine HCl (Apresoline) 50 mg PO BID [facility] Last Admin: 11/12/18 17:44 Dose: 50 mg Hydrochlorothiazide (Hydrodiuril) 25 mg PO DAILY [facility] Last Admin: 11/12/18 09:57 Dose: 25 mg Metronidazole (Flagyl) 500 mg in 100 mls @ 100 mls/hr IVPB Q8H [facility]; Protocol Last Admin: 11/13/18 03:34 Dose: 100 mls/hr Meropenem 500 mg/ Sodium (Chloride) 100 mls @ 100 mls/hr IVPB Q12H [facility]; Protocol Last Admin: 11/13/18 02:31 Dose: 100 mls/hr Insulin Aspart (Novolog) 0 unit SC ACHS [facility]; Protocol Last Admin: 11/13/18 10:27 Dose: 2 unit Lidocaine (Lidoderm) 2 ea TD DAILY [facility] Last Admin: 11/12/18 10:02 Dose: 2 ea Losartan Potassium (Cozaar) 25 mg PO DAILY [facility] Last Admin: 11/12/18 09:57 Dose: 25 mg Metoprolol Succinate (Toprol Xl) 100 mg PO DAILY [facility] Last Admin: 11/12/18 09:57 Dose: 100 mg Pantoprazole Sodium (Protonix Ec Tab) 40 mg PO DAILY [facility] Last Admin: 11/12/18 09:57 Dose: 40 mg - Labs Labs: 11/13/18 06:28 11/13/18 06:28 PT 15.2 SECONDS (9.7-12.2) H 10/27/18 03:32 INR 1.4 10/27/18 03:32 APTT 66 SECONDS (21-34) H 10/27/18 03:32 Assessment and Plan (1) Abdominal pain Status: Acute (2) Acute appendicitis with rupture Status: Acute (3) CVA (cerebral vascular accident) Status: Acute (4) Diabetes mellitus Status: Chronic (5) RILEY (acute kidney injury) Status: Resolved (6) Acute respiratory failure with hypercapnia Status: Resolved
[2018-11-13] MEDS: Calcium Carbonate 500 mg Chewable Antacid Tab PO SCH (18:30)
--- NOTE | 2018-11-13 21:16 | CP.PCM.PN ---
Subjective - Date & Time of Evaluation Date of Evaluation: 11/13/18 Time of Evaluation: 09:30 - Subjective Subjective: clinically same Objective - Vital Signs/Intake and Output Vital Signs (last 24 hours): Temp Pulse Resp BP Pulse Ox 98.2 F 89 20 125/62 95 11/13/18 15:33 11/13/18 16:09 11/13/18 15:33 11/13/18 15:33 11/13/18 15:33 - Medications Medications: Current Medications Amlodipine Besylate (Norvasc) 10 mg PO DAILY [facility] Last Admin: 11/13/18 10:39 Dose: 10 mg Artificial Tears (Artificial Tears) 0 ml OU BID [facility] Last Admin: 11/13/18 18:29 Dose: 1 drop Calcium Carbonate (Tums) 500 mg PO BID [facility] Last Admin: 11/13/18 18:30 Dose: 500 mg Hydralazine HCl (Apresoline) 50 mg PO BID [facility] Last Admin: 11/13/18 18:30 Dose: 50 mg Hydrochlorothiazide (Hydrodiuril) 25 mg PO DAILY [facility] Last Admin: 11/12/18 09:57 Dose: 25 mg Metronidazole (Flagyl) 500 mg in 100 mls @ 100 mls/hr IVPB Q8H [facility]; Protocol Last Admin: 11/13/18 18:30 Dose: 100 mls/hr Meropenem 500 mg/ Sodium (Chloride) 100 mls @ 100 mls/hr IVPB Q12H [facility]; Protocol Last Admin: 11/13/18 02:31 Dose: 100 mls/hr Insulin Aspart (Novolog) 0 unit SC ACHS [facility]; Protocol Last Admin: 11/13/18 18:30 Dose: 3 unit Lidocaine (Lidoderm) 2 ea TD DAILY [facility] Last Admin: 11/12/18 10:02 Dose: 2 ea Losartan Potassium (Cozaar) 25 mg PO DAILY [facility] Last Admin: 11/12/18 09:57 Dose: 25 mg Metoprolol Succinate (Toprol Xl) 100 mg PO DAILY [facility] Last Admin: 11/12/18 09:57 Dose: 100 mg Pantoprazole Sodium (Protonix Ec Tab) 40 mg PO DAILY [facility] Last Admin: 11/12/18 09:57 Dose: 40 mg - Labs Labs: 11/13/18 06:28 11/13/18 06:28 PT 15.2 SECONDS (9.7-12.2) H 10/27/18 03:32 INR 1.4 10/27/18 03:32 APTT 66 SECONDS (21-34) H 10/27/18 03:32
[2018-11-14] MEDS: Meropenem 500 MG in Sodium Chloride 0.9% 100 ML IVPB SCH ×2 (02:45→13:39)
[2018-11-14] MEDS: metroNIDAZOLE IV 500 mg/100 ml 500 MG/100 ML BAG IVPB SCH ×3 (02:46→18:03)
[2018-11-14 07:18] LABS: BASO % 0.2 % (0.0-2.0); EOS # 0.1 K/uL (0.0-0.7); EOS % 1.3 % (0.0-4.0); HEMOGLOBIN 10.3 g/dL (12.0-18.0); LYMPH # 0.6 K/uL (1.0-4.3); LYMPH % 9.2 % (20.0-40.0); MEAN CELL VOLUME 91.9 fL (80.0-94.0); MEAN CORPUSCULAR HEMOGLOBIN 30.2 pg (27.0-31.0); MEAN CORPUSCULAR HGB CONC 32.9 g/dL (33.0-37.0); MEAN PLATELET VOLUME 8.2 fL (7.2-11.7); NEUT # 5.1 K/uL (1.8-7.0); NEUT % 74.3 % (50.0-75.0); NRBC % 0.1 % (0.0-2.0); PLATELET COUNT 66 K/uL (130-400); RED CELL DISTRIBUTION WIDTH 14.3 % (11.5-14.5); WHITE BLOOD COUNT 6.9 K/uL (4.8-10.8)
[2018-11-14 07:42] LABS: ALT/SGPT 20 U/L (21-72); AST/SGOT 16 U/L (17-59); BLOOD UREA NITROGEN 26 mg/dL (9-20); CALCIUM 8.6 mg/dl (8.6-10.4); GFR NON-AFRICAN AMERICAN 59
[2018-11-14] MEDS: (Novolog) Insulin Aspart, Recombinant 100 u/ml 10 ml vial SC SCH ×4 (08:38→22:00)
--- NOTE | 2018-11-14 09:01 | RAD ---
Date of service: 11/13/2018 PROCEDURE: Left Knee Radiographs. HISTORY: Pain. COMPARISON: None. FINDINGS: BONES: No acute fracture or destructive bony lesion identified. JOINTS: Joint space narrowing and minimal osteophyte development are identified at the medial and patellofemoral articulations compatible with degenerative joint disease. No subluxation or dislocation. JOINT EFFUSION: None. OTHER FINDINGS: Vascular calcifications are identified in the posterior thigh, knee and leg soft tissues as imaged as well as a solitary surgical clip at the proximal leg soft tissues. IMPRESSION: Moderate bicompartmental osteoarthritis. No acute fracture, subluxation or dislocation left knee.
[2018-11-14 10:21] LABS: BANDS 2 % (0-2); EOSINOPHIL 1 % (0-4); LYMPHOCYTE 5 % (20-40); MONOCYTE 12 % (0-10); NEUTROPHIL 80 % (50-75); TOTAL CELLS COUNTED 100
[2018-11-14 10:22] LABS: PLATELET CLUMPS PRESENT; PLATELET ESTIMATE DECREASED (NORMAL)
[2018-11-14] MEDS: Pantoprazole 40 mg EC Tab PO SCH (10:38)
[2018-11-14] MEDS: Metoprolol Succinate 100 mg XL Tab PO SCH (10:41)
[2018-11-14] MEDS: Lidocaine 5% Patch TD SCH (10:42)
[2018-11-14] MEDS: Calcium Carbonate 500 mg Chewable Antacid Tab PO SCH ×2 (10:45→17:57)
--- NOTE | 2018-11-14 13:34 | VASCLAB ---
Date of service: 11/14/2018 PROCEDURE: Lower Extremity Venous Duplex Exam. HISTORY: LE pain and swelling PRIORS: None. TECHNIQUE: Bilateral common femoral, femoral, popliteal and posterior tibial, peroneal and great saphenous veins were evaluated. Flow was assessed with color Doppler, compressibility, assessment of phasic flow and augmentation response. Report prepared by Dale Cordon, ERNA, RVT FINDINGS: RIGHT: 1. Common Femoral Vein: 1.1. Compressibility - Fully compressible: Thrombus - None : Flow - Phasic: Augmentation -Normal: Reflux - None. 2. Femoral Vein: 2.1. Compressibility - Fully compressible: Thrombus - None : Flow - Phasic: Augmentation -Normal: Reflux - None. 3. Popliteal Vein: 3.1. Compressibility - Fully compressible: Thrombus - None : Flow - Phasic: Augmentation -Normal: Reflux - None. 4. Posterior Tibial Vein: 4.1. Compressibility - Partial: Thrombus - Acute: Flow - Absent : Augmentation - None: Reflux - None. 5. Peroneal Vein: 5.1. Compressibility - Partial: Thrombus - Acute: Flow - Absent : Augmentation - None: Reflux - None. 6. Great Saphenous Vein: 6.1. Compressibility - Fully compressible: Thrombus - None: Flow - Phasic: Augmentation - Normal: Reflux - None. LEFT: 1. Common Femoral Vein: 1.1. Compressibility - Fully compressible: Thrombus - None: Flow - Phasic: Augmentation -Normal: Reflux - None. 2. Femoral Vein: 2.1. Compressibility - Fully compressible: Thrombus - None: Flow - Phasic: Augmentation -Normal: Reflux - None. 3. Popliteal Vein: 3.1. Compressibility - Partial: Thrombus - Acute : Flow - Absent : Augmentation - None: Reflux - None. 4. Posterior Tibial Vein: 4.1. Compressibility - Partial: Thrombus - Acute: Flow - Absent : Augmentation - None: Reflux - None. 5. Peroneal Vein: 5.1. Compressibility - Partial: Thrombus - Acute: Flow - Absent : Augmentation - None: Reflux - None. 6. Great Saphenous Vein: 6.1. Compressibility - : Thrombus - : Flow - : Augmentation - : Reflux - . OTHER FINDINGS: GAY Page notified about the findings. IMPRESSION: Right: Acute thrombosis of the right posterior tibial and peroneal veins with severe reduction of the venous return. Left: Acute thrombosis of the left popliteal, posterior tibial and peroneal veins with severe reduction of the venous return. The left greater saphenous vein has been previously removed.
[2018-11-14] MEDS: Enoxaparin 120 mg Syringe SC SCH (13:39)
--- NOTE | 2018-11-14 13:48 | CP.PCM.PN ---
Subjective - Date & Time of Evaluation Date of Evaluation: 11/14/18 Time of Evaluation: 10:00 - Subjective Subjective: clinically same Objective - Vital Signs/Intake and Output Vital Signs (last 24 hours): Temp Pulse Resp BP Pulse Ox 98.1 F 91 H 20 150/67 96 11/14/18 07:00 11/14/18 07:00 11/14/18 07:00 11/14/18 07:00 11/14/18 07:00 Intake and Output: 11/14/18 11/14/18 06:59 18:59 Intake Total 1000 Output Total 304 500 Balance 696 -500 - Medications Medications: Current Medications Amlodipine Besylate (Norvasc) 10 mg PO DAILY [facility] Last Admin: 11/14/18 10:42 Dose: 10 mg Calcium Carbonate (Tums) 500 mg PO BID [facility] Last Admin: 11/14/18 10:45 Dose: Not Given Enoxaparin Sodium (Lovenox) 120 mg SC Q12H [facility] Last Admin: 11/14/18 13:39 Dose: 120 mg Hydralazine HCl (Apresoline) 50 mg PO BID [facility] Last Admin: 11/14/18 10:42 Dose: 50 mg Hydrochlorothiazide (Hydrodiuril) 25 mg PO DAILY [facility] Last Admin: 11/14/18 10:42 Dose: 25 mg Metronidazole (Flagyl) 500 mg in 100 mls @ 100 mls/hr IVPB Q8H [facility]; Protocol Last Admin: 11/14/18 12:23 Dose: 100 mls/hr Meropenem 500 mg/ Sodium (Chloride) 100 mls @ 100 mls/hr IVPB Q12H [facility]; Protocol Last Admin: 11/14/18 13:39 Dose: 100 mls/hr Insulin Aspart (Novolog) 0 unit SC ACHS [facility]; Protocol Last Admin: 11/14/18 12:57 Dose: 4 unit Lidocaine (Lidoderm) 2 ea TD DAILY [facility] Last Admin: 11/14/18 10:42 Dose: 2 ea Losartan Potassium (Cozaar) 25 mg PO DAILY [facility] Last Admin: 11/14/18 10:41 Dose: 25 mg Metoprolol Succinate (Toprol Xl) 100 mg PO DAILY [facility] Last Admin: 11/14/18 10:41 Dose: 100 mg Pantoprazole Sodium (Protonix Ec Tab) 40 mg PO DAILY [facility] Last Admin: 11/14/18 10:38 Dose: 40 mg - Labs Labs: 11/14/18 06:58 11/14/18 06:58 PT 15.2 SECONDS (9.7-12.2) H 10/27/18 03:32 INR 1.4 10/27/18 03:32 APTT 66 SECONDS (21-34) H 10/27/18 03:32
--- NOTE | 2018-11-14 17:23 | CP.PCM.PN ---
Subjective - Date & Time of Evaluation Date of Evaluation: 11/14/18 Time of Evaluation: 11:45 - Subjective Subjective: [employer] REPORTER NOTES DUPLEX SCAN OF B/L LE + FOR DVT D/W DR. ASHBY OK TO START THERAPEUTIC LOVENOX AND MONITOR PLATELETS ( PLT TODAY 67, DAILY CBC ORDER IN) D/W dR. [place] ABOVE PLAN AND AGREES WITH PLAN Objective - Vital Signs/Intake and Output Vital Signs (last 24 hours): Temp Pulse Resp BP Pulse Ox 98.1 F 81 20 114/65 97 11/14/18 15:44 11/14/18 15:44 11/14/18 15:44 11/14/18 15:44 11/14/18 15:44 Intake and Output: 11/14/18 11/14/18 06:59 18:59 Intake Total 1000 Output Total 304 500 Balance 696 -500 - Medications Medications: Current Medications Amlodipine Besylate (Norvasc) 10 mg PO DAILY [facility] Last Admin: 11/14/18 10:42 Dose: 10 mg Calcium Carbonate (Tums) 500 mg PO BID [facility] Last Admin: 11/14/18 10:45 Dose: Not Given Enoxaparin Sodium (Lovenox) 120 mg SC Q12H [facility] Last Admin: 11/14/18 13:39 Dose: 120 mg Hydralazine HCl (Apresoline) 50 mg PO BID [facility] Last Admin: 11/14/18 10:42 Dose: 50 mg Hydrochlorothiazide (Hydrodiuril) 25 mg PO DAILY [facility] Last Admin: 11/14/18 10:42 Dose: 25 mg Metronidazole (Flagyl) 500 mg in 100 mls @ 100 mls/hr IVPB Q8H [facility]; Protocol Last Admin: 11/14/18 12:23 Dose: 100 mls/hr Meropenem 500 mg/ Sodium (Chloride) 100 mls @ 100 mls/hr IVPB Q12H [facility]; Protocol Last Admin: 11/14/18 13:39 Dose: 100 mls/hr Insulin Aspart (Novolog) 0 unit SC ACHS [facility]; Protocol Last Admin: 11/14/18 12:57 Dose: 4 unit Lidocaine (Lidoderm) 2 ea TD DAILY [facility] Last Admin: 11/14/18 10:42 Dose: 2 ea Losartan Potassium (Cozaar) 25 mg PO DAILY [facility] Last Admin: 11/14/18 10:41 Dose: 25 mg Metoprolol Succinate (Toprol Xl) 100 mg PO DAILY [facility] Last Admin: 11/14/18 10:41 Dose: 100 mg Pantoprazole Sodium (Protonix Ec Tab) 40 mg PO DAILY [facility] Last Admin: 11/14/18 10:38 Dose: 40 mg - Labs Labs: 11/14/18 06:58 11/14/18 06:58 PT 15.2 SECONDS (9.7-12.2) H 10/27/18 03:32 INR 1.4 10/27/18 03:32 APTT 66 SECONDS (21-34) H 10/27/18 03:32
--- NOTE | 2018-11-14 17:57 | CP.PCM.PN ---
Subjective - Date & Time of Evaluation Date of Evaluation: 11/14/18 Time of Evaluation: 17:57 Objective - Vital Signs/Intake and Output Vital Signs (last 24 hours): Temp Pulse Resp BP Pulse Ox 98.1 F 81 20 114/65 97 11/14/18 15:44 11/14/18 15:44 11/14/18 15:44 11/14/18 15:44 11/14/18 15:44 Intake and Output: 11/14/18 11/14/18 06:59 18:59 Intake Total 1000 Output Total 304 500 Balance 696 -500 - Medications Medications: Current Medications Amlodipine Besylate (Norvasc) 10 mg PO DAILY [facility] Last Admin: 11/14/18 10:42 Dose: 10 mg Calcium Carbonate (Tums) 500 mg PO BID [facility] Last Admin: 11/14/18 10:45 Dose: Not Given Enoxaparin Sodium (Lovenox) 120 mg SC Q12H [facility] Last Admin: 11/14/18 13:39 Dose: 120 mg Hydralazine HCl (Apresoline) 50 mg PO BID [facility] Last Admin: 11/14/18 17:50 Dose: 50 mg Hydrochlorothiazide (Hydrodiuril) 25 mg PO DAILY [facility] Last Admin: 11/14/18 10:42 Dose: 25 mg Metronidazole (Flagyl) 500 mg in 100 mls @ 100 mls/hr IVPB Q8H [facility]; Protocol Last Admin: 11/14/18 12:23 Dose: 100 mls/hr Meropenem 500 mg/ Sodium (Chloride) 100 mls @ 100 mls/hr IVPB Q12H [facility]; Protocol Last Admin: 11/14/18 13:39 Dose: 100 mls/hr Insulin Aspart (Novolog) 0 unit SC ACHS [facility]; Protocol Last Admin: 11/14/18 17:51 Dose: 3 unit Lidocaine (Lidoderm) 2 ea TD DAILY [facility] Last Admin: 11/14/18 10:42 Dose: 2 ea Losartan Potassium (Cozaar) 25 mg PO DAILY [facility] Last Admin: 11/14/18 10:41 Dose: 25 mg Metoprolol Succinate (Toprol Xl) 100 mg PO DAILY [facility] Last Admin: 11/14/18 10:41 Dose: 100 mg Pantoprazole Sodium (Protonix Ec Tab) 40 mg PO DAILY [facility] Last Admin: 01/03/19 10:38 Dose: 40 mg - Labs Labs: 11/14/18 06:58 11/14/18 06:58 PT 15.2 SECONDS (9.7-12.2) H 10/27/18 03:32 INR 1.4 10/27/18 03:32 APTT 66 SECONDS (21-34) H 10/27/18 03:32 Assessment and Plan (1) Abdominal pain Status: Acute (2) Acute appendicitis with rupture Status: Acute (3) CVA (cerebral vascular accident) Status: Acute (4) Diabetes mellitus Status: Chronic (5) RILEY (acute kidney injury) Status: Resolved (6) Acute respiratory failure with hypercapnia Status: Resolved
--- NOTE | 2018-11-14 21:42 | CP.PCM.PN ---
Subjective - Date & Time of Evaluation Date of Evaluation: 11/14/18 Time of Evaluation: 19:30 - Subjective Subjective: Pt seen and examined at bedside. Doppler study reveals b/l DVT Patient started on Lovenox Physical Examination - Constitutional Appears: Non-toxic, No Acute Distress - Head Exam Head Exam: ATRAUMATIC, NORMOCEPHALIC - ENT Exam ENT Exam: Mucous Membranes Moist - Respiratory Exam Respiratory Exam: Clear to Ausculation Bilateral. absent: Accessory Muscle Use, Rales, Rhonchi, Wheezes, Respiratory Distress - Cardiovascular Exam Cardiovascular Exam: REGULAR RHYTHM, +S1, +S2. absent: Gallop, Rubs, Murmur - GI/Abdominal Exam GI & Abdominal Exam: Soft, Normal Bowel Sounds. absent: Distended, Firm, Guarding, Rigid, Tenderness, Organomegaly - Extremities Exam Extremities Exam: Tenderness (left knee) - Neurological Exam Neurological Exam: Alert, Awake, Oriented x3 - Psychiatric Exam Psychiatric exam: Normal Affect, Normal Mood - Skin Skin Exam: Dry, Intact, Normal Color, Warm Assessment and Plan - Assessment and Plan (Free Text) Assessment: 78yo M with ruptured Appendicitis, hypercapnic respiratory failure (resolved), and acute on chronic renal failure (resolving) and hx of CAD. Cardiology consulted for cardiac clearance for appendectomy. Ruptured appendix - Medical management - Resolving B/L DVT - Management as per PMD Objective - Vital Signs/Intake and Output Vital Signs (last 24 hours): Temp Pulse Resp BP Pulse Ox 98.1 F 81 20 114/65 97 11/14/18 15:44 11/14/18 15:44 11/14/18 15:44 11/14/18 15:44 11/14/18 15:44 Intake and Output: 11/14/18 11/15/18 18:59 06:59 Output Total 500 200 Balance -500 -200 - Medications Medications: Current Medications Amlodipine Besylate (Norvasc) 10 mg PO DAILY [facility] Last Admin: 11/14/18 10:42 Dose: 10 mg Calcium Carbonate (Tums) 500 mg PO BID [facility] Last Admin: 11/14/18 17:57 Dose: 500 mg Enoxaparin Sodium (Lovenox) 120 mg SC Q12H [facility] Last Admin: 11/14/18 13:39 Dose: 120 mg Hydralazine HCl (Apresoline) 50 mg PO BID [facility] Last Admin: 11/14/18 17:50 Dose: 50 mg Hydrochlorothiazide (Hydrodiuril) 25 mg PO DAILY [facility] Last Admin: 11/14/18 10:42 Dose: 25 mg Metronidazole (Flagyl) 500 mg in 100 mls @ 100 mls/hr IVPB Q8H [facility]; Protocol Last Admin: 11/14/18 18:03 Dose: 100 mls/hr Meropenem 500 mg/ Sodium (Chloride) 100 mls @ 100 mls/hr IVPB Q12H [facility]; Protocol Last Admin: 11/14/18 13:39 Dose: 100 mls/hr Insulin Aspart (Novolog) 0 unit SC ACHS [facility]; Protocol Last Admin: 11/14/18 17:51 Dose: 3 unit Lidocaine (Lidoderm) 2 ea TD DAILY [facility] Last Admin: 11/14/18 10:42 Dose: 2 ea Losartan Potassium (Cozaar) 25 mg PO DAILY [facility] Last Admin: 11/14/18 10:41 Dose: 25 mg Metoprolol Succinate (Toprol Xl) 100 mg PO DAILY [facility] Last Admin: 11/14/18 10:41 Dose: 100 mg Pantoprazole Sodium (Protonix Ec Tab) 40 mg PO DAILY [facility] Last Admin: 11/14/18 10:38 Dose: 40 mg - Labs Labs: 11/14/18 06:58 11/14/18 06:58 PT 15.2 SECONDS (9.7-12.2) H 10/27/18 03:32 INR 1.4 10/27/18 03:32 APTT 66 SECONDS (21-34) H 10/27/18 03:32
[2018-11-15] MEDS: Enoxaparin 120 mg Syringe SC SCH ×2 (00:29→12:25)
[2018-11-15] MEDS: Meropenem 500 MG in Sodium Chloride 0.9% 100 ML IVPB SCH ×2 (02:06→13:30)
[2018-11-15] MEDS: metroNIDAZOLE IV 500 mg/100 ml 500 MG/100 ML BAG IVPB SCH ×2 (02:07→10:14)
[2018-11-15 07:04] LABS: BASO % 0.5 % (0.0-2.0); EOS # 0.1 K/uL (0.0-0.7); EOS % 2.1 % (0.0-4.0); HEMOGLOBIN 9.9 g/dL (12.0-18.0); LYMPH # 0.6 K/uL (1.0-4.3); LYMPH % 13.2 % (20.0-40.0); MEAN CELL VOLUME 92.1 fL (80.0-94.0); MEAN CORPUSCULAR HEMOGLOBIN 30.1 pg (27.0-31.0); MEAN CORPUSCULAR HGB CONC 32.7 g/dL (33.0-37.0); MEAN PLATELET VOLUME 8.6 fL (7.2-11.7); MONO # 0.8 K/uL (0.0-0.8); MONO % 16.4 % (0.0-10.0); NEUT # 3.2 K/uL (1.8-7.0); NEUT % 67.8 % (50.0-75.0); RBC 3.3 Mil/uL (4.40-5.90); RED CELL DISTRIBUTION WIDTH 14.1 % (11.5-14.5); WHITE BLOOD COUNT 4.7 K/uL (4.8-10.8)
[2018-11-15 07:28] LABS: ALB/GLOB RATIO 1.1 (1.0-2.1); ALT/SGPT 20 U/L (21-72); AST/SGOT 14 U/L (17-59); BLOOD UREA NITROGEN 29 mg/dL (9-20); CALCIUM 8.8 mg/dl (8.6-10.4); GFR NON-AFRICAN AMERICAN 54
[2018-11-15] MEDS: (Novolog) Insulin Aspart, Recombinant 100 u/ml 10 ml vial SC SCH ×2 (08:12→12:25)
[2018-11-15] MEDS: Lidocaine 5% Patch TD SCH (10:07)
[2018-11-15] MEDS: Metoprolol Succinate 100 mg XL Tab PO SCH (10:08)
[2018-11-15] MEDS: Pantoprazole 40 mg EC Tab PO SCH (10:08)
[2018-11-15] MEDS: Calcium Carbonate 500 mg Chewable Antacid Tab PO SCH (12:10)
--- NOTE | 2018-11-15 14:29 | CP.PCM.PN ---
<Khalida Tomlinson - Last Filed: 11/15/18 14:25> Subjective - Date & Time of Evaluation Date of Evaluation: 11/15/18 Time of Evaluation: 14:26 - Subjective Subjective: Progress note for cardiology Pt seen and examined at bedside today. Continues to complain of B/L lower extremity pain. Patient states he is unable to ambulate due to the pain. Denies F/c, CP, SOB, abd pain, N/v/d/C. Objective - Vital Signs/Intake and Output Vital Signs (last 24 hours): Temp Pulse Resp BP Pulse Ox 98.4 F 87 20 116/59 L 95 11/14/18 23:15 11/15/18 13:36 11/14/18 23:15 11/14/18 23:15 11/14/18 23:15 Intake and Output: 11/15/18 11/15/18 06:59 18:59 Intake Total 310 Output Total 500 Balance -190 - Medications Medications: Current Medications Amlodipine Besylate (Norvasc) 10 mg PO DAILY [facility] Last Admin: 11/15/18 10:09 Dose: 10 mg Calcium Carbonate (Tums) 500 mg PO BID [facility] Last Admin: 11/15/18 12:10 Dose: 500 mg Enoxaparin Sodium (Lovenox) 120 mg SC Q12H [facility] Last Admin: 11/15/18 12:25 Dose: 120 mg Hydralazine HCl (Apresoline) 50 mg PO BID [facility] Last Admin: 11/15/18 10:08 Dose: 50 mg Hydrochlorothiazide (Hydrodiuril) 25 mg PO DAILY [facility] Last Admin: 11/15/18 10:08 Dose: 25 mg Metronidazole (Flagyl) 500 mg in 100 mls @ 100 mls/hr IVPB Q8H [facility]; Protocol Last Admin: 11/15/18 10:14 Dose: 100 mls/hr Meropenem 500 mg/ Sodium (Chloride) 100 mls @ 100 mls/hr IVPB Q12H [facility]; Protocol Last Admin: 11/15/18 13:30 Dose: 100 mls/hr Insulin Aspart (Novolog) 0 unit SC ACHS [facility]; Protocol Last Admin: 11/15/18 12:25 Dose: 3 unit Lidocaine (Lidoderm) 2 ea TD DAILY [facility] Last Admin: 11/15/18 10:07 Dose: 2 ea Losartan Potassium (Cozaar) 25 mg PO DAILY [facility] Last Admin: 11/15/18 10:09 Dose: 25 mg Metoprolol Succinate (Toprol Xl) 100 mg PO DAILY [facility] Last Admin: 11/15/18 10:08 Dose: 100 mg Pantoprazole Sodium (Protonix Ec Tab) 40 mg PO DAILY [facility] Last Admin: 11/15/18 10:08 Dose: 40 mg - Labs Labs: 11/15/18 06:49 11/15/18 06:49 PT 15.2 SECONDS (9.7-12.2) H 10/27/18 03:32 INR 1.4 10/27/18 03:32 APTT 66 SECONDS (21-34) H 10/27/18 03:32 - Constitutional Appears: Non-toxic, No Acute Distress - Head Exam Head Exam: ATRAUMATIC, NORMOCEPHALIC - ENT Exam ENT Exam: Mucous Membranes Moist - Respiratory Exam Respiratory Exam: Clear to Ausculation Bilateral. absent: Rales, Rhonchi, Wheezes - Cardiovascular Exam Cardiovascular Exam: REGULAR RHYTHM, +S1, +S2. absent: Gallop, Rubs, Murmur - GI/Abdominal Exam GI & Abdominal Exam: Soft, Normal Bowel Sounds. absent: Distended, Firm, Guarding, Rigid, Tenderness, Organomegaly - Extremities Exam Extremities Exam: Tenderness. absent: Pedal Edema - Neurological Exam Neurological Exam: Alert, Awake, Oriented x3 - Psychiatric Exam Psychiatric exam: Normal Affect, Normal Mood - Skin Skin Exam: Dry, Intact, Normal Color, Warm Assessment and Plan - Assessment and Plan (Free Text) Assessment: 78yo M with ruptured Appendicitis, hypercapnic respiratory failure (resolved), and acute on chronic renal failure (resolving) and hx of CAD. Cardiology consulted for cardiac clearance for appendectomy. 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 pending heme/onc recommendations about anticoagulation rec ommendations Case discussed with attending, Dr. Yeung <Darnell Yeung - Last Filed: 11/16/18 08:44> Objective - Vital Signs/Intake and Output Vital Signs (last 24 hours): Temp Pulse Resp BP Pulse Ox 98.8 F 88 20 129/66 95 11/15/18 15:00 11/15/18 15:00 11/15/18 15:00 11/15/18 15:00 11/15/18 15:00 - Labs Labs: 11/15/18 06:49 11/15/18 06:49 PT 15.2 SECONDS (9.7-12.2) H 10/27/18 03:32 INR 1.4 10/27/18 03:32 APTT 66 SECONDS (21-34) H 10/27/18 03:32 Assessment and Plan - Assessment and Plan (Free Text) Assessment: Patient seen and evaluated personally by me. Plan of care d/w the manager medical writing and as documented
--- NOTE | 2018-11-15 16:02 | CP.PCM.DIS ---
Provider - Provider Date of Admission: 10/23/18 22:50 Attending physician: Marshall Madison MD Consults: 10/23/18 23:51 General Surgery Consult Stat Comment: ruptured ac ap Consulting Provider: Spenser Delacruz Jr. Consulting Physician: Spenser Delacruz Jr. Reason for Consult: ruptured ac ap 10/24/18 00:00 General Surgery Consult Stat Comment: Consulting Provider: Spenser Delacruz Jr. Consulting Physician: Spenser Delacruz Jr. Reason for Consult: raptured appendicitis 10/24/18 00:01 Infectious Disease Consult Stat Comment: Consulting Provider: Dale Romo Consulting Physician: Dale Romo Reason for Consult: raptured Appedicitis 10/26/18 17:11 Critical Care Consult Routine Comment: Consulting Provider: Sammy Badillo Consulting Physician: Sammy Badillo Reason for Consult: AMS worsening 10/28/18 09:53 Nephrology Consult Routine Comment: Consulting Provider: Gold Seo Consulting Physician: Gold Seo Reason for Consult: RILEY 11/03/18 16:09 Cardiology Consult Routine Comment: Consulting Provider: Darnell Yeung Consulting Physician: Darnell Yeung Reason for Consult: Chest Pain 11/09/18 18:48 Physician Consult Routine Comment: Consulting Provider: Sanford Snell Consulting Physician: Sanford Snell Reason for Consult: low platelets Diagnosis - Discharge Diagnosis (1) Abdominal pain Status: Acute (2) Acute appendicitis with rupture Status: Acute (3) CVA (cerebral vascular accident) Status: Acute (4) Diabetes mellitus Status: Chronic (5) RILEY (acute kidney injury) Status: Resolved (6) Acute respiratory failure with hypercapnia Status: Resolved Hospital Course - Lab Results Lab Results: Micro Results 11/10/18 07:59 Urine,Clean Catch Urine Culture - Final No Growth (<1,000 CFU/ML) 11/09/18 06:32 Urine Urine Culture - Final No Growth (<1,000 CFU/ML) 10/31/18 13:11 Naris MRSA Culture - Final MRSA NOT DETECTED 10/23/18 20:00 Blood Blood Culture - Final NO GROWTH AFTER 5 DAYS 10/23/18 20:00 Blood Gram Stain - Final TEST NOT PERFORMED 10/23/18 20:50 Blood Blood Culture - Final NO GROWTH AFTER 5 DAYS 10/23/18 20:50 Blood Gram Stain - Final TEST NOT PERFORMED 10/27/18 07:51 Naris MRSA Culture (Admit) - Final MRSA NOT DETECTED 10/27/18 10:50 Urine,Catheterized Urine Culture - Final No Growth (<1,000 CFU/ML) 10/23/18 21:55 Urine Urine Culture - Final <10,000 CFU/ML. MULTIPLE SPECIES. PROBABLE CONTAMINATION. Most Recent Lab Values WBC 4.7 K/uL (4.8-10.8) L 11/15/18 06:49 RBC 3.30 Mil/uL (4.40-5.90) L 11/15/18 06:49 Hgb 9.9 g/dL (12.0-18.0) L 11/15/18 06:49 Hct 30.4 % (35.0-51.0) L 11/15/18 06:49 MCV 92.1 fL (80.0-94.0) 11/15/18 06:49 MCH 30.1 pg (27.0-31.0) 11/15/18 06:49 MCHC 32.7 g/dL (33.0-37.0) L 11/15/18 06:49 RDW 14.1 % (11.5-14.5) 11/15/18 06:49 Plt Count 58 K/uL (130-400) L 11/15/18 06:49 MPV 8.6 fL (7.2-11.7) 11/15/18 06:49 Neut % (Auto) 67.8 % (50.0-75.0) 11/15/18 06:49 Lymph % (Auto) 13.2 % (20.0-40.0) L 11/15/18 06:49 [place] % (Auto) 16.4 % (0.0-10.0) H 11/15/18 06:49 Eos % (Auto) 2.1 % (0.0-4.0) 11/15/18 06:49 Baso % (Auto) 0.5 % (0.0-2.0) 11/15/18 06:49 Neut # (Auto) 3.2 K/uL (1.8-7.0) 11/15/18 06:49 Lymph # (Auto) 0.6 K/uL (1.0-4.3) L 11/15/18 06:49 [place] # (Auto) 0.8 K/uL (0.0-0.8) 11/15/18 06:49 Eos # (Auto) 0.1 K/uL (0.0-0.7) 11/15/18 06:49 Baso # (Auto) 0.0 K/uL (0.0-0.2) 11/15/18 06:49 Neutrophils % (Manual) 80 % (50-75) H 11/14/18 06:58 Band Neutrophils % 2 % (0-2) 11/14/18 06:58 Lymphocytes % (Manual) 5 % (20-40) L 11/14/18 06:58 Reactive Lymphs % 1 % (0-0) H 11/11/18 06:05 Monocytes % (Manual) 12 % (0-10) H 11/14/18 06:58 Eosinophils % (Manual) 1 % (0-4) 11/14/18 06:58 Metamyelocytes % 1 % (0-0) H 11/03/18 08:14 Myelocytes % 1 % (0-0) H 10/31/18 06:11 Nucleated RBC % 1 % (0-0) H 10/31/18 06:11 Differential Comment 11/04/18 06:23 Toxic Granulation Present 11/09/18 06:31 Platelet Estimate Decreased (NORMAL) L 11/14/18 06:58 Plt Clumps, EDTA Present 11/14/18 06:58 Large Platelets Present 11/09/18 06:31 RBC Morphology Normal 11/14/18 06:58 Polychromasia Slight 11/13/18 06:28 Hypochromasia (manual) Slight 11/13/18 06:28 Poikilocytosis (manual Slight 11/07/18 10:56 Basophilic Stippling Slight 10/26/18 11:34 Anisocytosis (manual) Slight 11/12/18 07:03 Macrocytosis (manual) Slight 11/05/18 06:41 Target Cells Slight 11/07/18 10:56 Ovalocytes Slight 11/02/18 07:58 Schistocytes Slight 11/02/18 07:58 Retic Count 1.8 % (0.5-1.5) H 11/12/18 07:03 PT 15.2 SECONDS (9.7-12.2) H 10/27/18 03:32 INR 1.4 10/27/18 03:32 APTT 66 SECONDS (21-34) H 10/27/18 03:32 Puncture Site Rba 10/30/18 10:11 pCO2 54 mm/Hg (35-45) H 10/30/18 10:11 pO2 108 mm/Hg (80-100) H 10/30/18 10:11 HCO3 24.4 mmol/L (21-28) 10/30/18 10:11 ABG pH 7.30 (7.35-7.45) L 10/30/18 10:11 ABG Total CO2 28.3 mmol/L (22-28) H 10/30/18 10:11 ABG O2 Saturation 97.3 % (95-98) 10/30/18 10:11 ABG Base Excess -0.7 mmol/L (-2.0-3.0) 10/30/18 10:11 ABG Hemoglobin 11.4 g/dL (11.7-17.4) L 10/30/18 05:15 ABG Carboxyhemoglobin 0.8 % (0.5-1.5) 10/30/18 05:15 POC ABG HHb (Measured) 3.4 % (0.0-5.0) 10/30/18 05:15 ABG Methemoglobin 0.8 % (0.0-3.0) 10/30/18 05:15 Andres Test Na 10/30/18 10:11 ABG Potassium 4.5 mmol/L (3.6-5.2) 10/30/18 10:11 VBG pH 7.33 (7.32-7.43) 10/23/18 20:40 VBG pCO2 52 mmHg (40-60) 10/23/18 20:40 VBG HCO3 25.0 mmol/L 10/23/18 20:40 VBG Total CO2 29.0 mmol/L (22-28) H 10/23/18 20:40 VBG O2 Sat (Calc) 87.5 % (40-65) H 10/23/18 20:40 VBG Base Excess 0.6 mmol/L (0.0-2.0) 10/23/18 20:40 VBG Potassium 4.5 mmol/L (3.6-5.2) 10/23/18 20:40 A-a O2 Difference 181.0 mm/Hg 10/30/18 10:11 Respiratory Index 1.7 10/30/18 10:11 Hgb O2 Saturation 94.9 % (95.0-98.0) L 10/30/18 05:15 Sodium 155.0 mmol/l (132-148) H 10/30/18 10:11 Chloride 124.0 mmol/L (98-107) H 10/30/18 10:11 Glucose 176 mg/dl (75-110) H 10/30/18 10:11 Lactate 0.7 mmol/L (0.7-2.1) 10/30/18 10:11 Liter Flow 5.0 10/26/18 17:40 Vent Mode Bipap 10/30/18 10:11 Mechanical Rate 20 10/29/18 10:18 FiO2 50.0 % 10/30/18 10:11 Tidal Volume 550 10/29/18 10:18 PEEP 5 10/29/18 10:18 Inspiratory BiPAP 20 10/30/18 10:11 Expiratory BiPAP 10 10/30/18 10:11 Crit Value Called To Dr. cross 10/30/18 00:57 Crit Value Called By Chris magnet placer 10/30/18 00:57 Crit Value Read Back Y 10/30/18 00:57 Blood Gas Notified Time 104 10/30/18 00:57 Sodium 133 mmol/L (132-148) 11/15/18 06:49 Potassium 5.1 mmol/L (3.6-5.2) 11/15/18 06:49 Chloride 95 mmol/L (98-107) L 11/15/18 06:49 Carbon Dioxide 35 mmol/L (22-30) H 11/15/18 06:49 Anion Gap 8 (10-20) L 11/15/18 06:49 BUN 29 mg/dL (9-20) H 11/15/18 06:49 Creatinine 1.3 mg/dL (0.8-1.5) 11/15/18 06:49 Est GFR ( Amer) > 60 11/15/18 06:49 Est GFR (Non-Af Amer) 54 11/15/18 06:49 POC Glucose (mg/dL) 248 mg/dL (65-110) H 11/15/18 12:17 Random Glucose 181 mg/dL (75-110) H 11/15/18 06:49 Lactic Acid 0.9 mmol/L (0.7-2.1) 10/24/18 02:54 Calcium 8.8 mg/dl (8.6-10.4) 11/15/18 06:49 Phosphorus 3.7 mg/dL (2.5-4.5) 11/15/18 06:49 Magnesium 1.8 mg/dL (1.6-2.3) 11/15/18 06:49 Ferritin 416.0 ng/mL 11/12/18 07:03 Total Bilirubin 0.5 mg/dL (0.2-1.3) 11/15/18 06:49 AST 14 U/L (17-59) L 11/15/18 06:49 ALT 20 U/L (21-72) L 11/15/18 06:49 Alkaline Phosphatase 53 U/L (38-126) 11/15/18 06:49 Total Creatine Kinase 26 U/L (55-170) L 11/07/18 03:37 CK-MB (Mass) 0.25 ng/mL (0.0-3.38) 11/07/18 03:37 Troponin I < 0.0120 ng/mL (0.00-0.120) 11/07/18 03:37 NT-Pro-B Natriuret Pep 2530 pg/mL (0-900) H 10/27/18 03:32 Total Protein 5.7 g/dL (6.3-8.3) L 11/15/18 06:49 Albumin 3.0 g/dL (3.5-5.0) L 11/15/18 06:49 Globulin 2.8 gm/dL (2.2-3.9) 11/15/18 06:49 Albumin/Globulin Ratio 1.1 (1.0-2.1) 11/15/18 06:49 Lipase 38 U/L (23-300) 10/23/18 20:50 UF Heparin Interp Negative (Negative) 11/12/18 07:03 Vitamin B12 493 pg/mL (239-931) 11/12/18 07:03 Folate 6.4 ng/mL 11/12/18 07:03 Procalcitonin 0.19 NG/ML (0.19-0.49) 11/07/18 10:56 Arterial Blood Potassium 4.5 mmol/L (3.6-5.2) 10/30/18 10:11 Venous Blood Potassium 4.5 mmol/L (3.6-5.2) 10/23/18 20:40 Urine Color Yellow (YELLOW) 11/09/18 06:32 Urine Clarity Clear (Clear) 11/09/18 06:32 Urine pH 5.0 (5.0-8.0) 11/09/18 06:32 Ur Specific [place] 1.011 (1.003-1.030) 11/09/18 06:32 Urine Protein 2+ mg/dL (NEGATIVE) H 11/09/18 06:32 Urine Glucose (UA) Normal mg/dL (Normal) 11/09/18 06:32 Urine Ketones Negative mg/dL (NEGATIVE) 11/09/18 06:32 Urine Blood Negative (NEGATIVE) 11/09/18 06:32 Urine Nitrate Negative (NEGATIVE) 11/09/18 06:32 Urine Bilirubin Negative (NEGATIVE) 11/09/18 06:32 Urine Urobilinogen Normal mg/dL (0.2-1.0) 11/09/18 06:32 Ur Leukocyte Esterase Trace Isabel/uL (Negative) 11/09/18 06:32 Urine WBC (Auto) 1 /hpf (0-5) 11/09/18 06:32 Urine RBC (Auto) 1 /hpf (0-3) 11/09/18 06:32 Ur Squamous Epith Cells < 1 /hpf (0-5) 11/09/18 06:32 Amorphous Sediment Rare /ul (<OCC) H 10/23/18 21:55 Urine Bacteria Rare (<OCC) 10/27/18 10:50 Hyaline Casts 0-2 /lpf (0-2) 11/09/18 06:32 Ur Random Sodium 36 mmol/L 10/29/18 06:58 Heparin-induced Plt Ab Negative (Negative) 11/12/18 07:03 [facility] Low Dose 0.1 0 % Release 11/12/18 07:03 [facility] Low Dose 0.5 0 % Release 11/12/18 07:03 [facility] High Dose 100 0 % Release 11/12/18 07:03 Hepatitis A IgM Ab Negative (NEGATIVE) 11/12/18 07:03 Hep Bs Antigen Negative (NEGATIVE) 11/12/18 07:03 Hep B Core IgM Ab Negative (NEGATIVE) 11/12/18 07:03 Hepatitis C Antibody Negative (NEGATIVE) 11/12/18 07:03 HIV 1&2 Antibody Screen Negative (NEGATIVE) 11/12/18 07:03 Blood Type O POSITIVE 10/27/18 03:32 Antibody Screen Negative 10/27/18 03:32 Discharge Exam - Head Exam Head Exam: ATRAUMATIC, NORMOCEPHALIC Discharge Plan - Follow Up Plan Condition: GUARDED Disposition: HOME/ ROUTINE Instructions: Appendicitis, Adult (DC) Referrals: Marshall Madison MD [Staff Provider] - Dale Romo MD [Staff Provider] - Spenser Delacruz Jr., MD [Staff Provider] -
--- NOTE | 2018-11-15 16:55 | CP.PCM.PN ---
Subjective - Date & Time of Evaluation Date of Evaluation: 11/15/18 Time of Evaluation: 16:55 - Subjective Subjective: PATIENT SEEN AND EXAMINED AT THE BEDSIDE Objective - Vital Signs/Intake and Output Vital Signs (last 24 hours): Temp Pulse Resp BP Pulse Ox 97.9 F 87 20 130/68 97 11/15/18 07:30 11/15/18 13:36 11/15/18 07:30 11/15/18 07:30 11/15/18 07:30 Intake and Output: 11/15/18 11/15/18 06:59 18:59 Intake Total 310 Output Total 500 Balance -190 - Medications Medications: Current Medications Amlodipine Besylate (Norvasc) 10 mg PO DAILY [facility] Last Admin: 11/15/18 10:09 Dose: 10 mg Calcium Carbonate (Tums) 500 mg PO BID [facility] Last Admin: 11/15/18 12:10 Dose: 500 mg Enoxaparin Sodium (Lovenox) 120 mg SC Q12H [facility] Last Admin: 11/15/18 12:25 Dose: 120 mg Hydralazine HCl (Apresoline) 50 mg PO BID [facility] Last Admin: 11/15/18 10:08 Dose: 50 mg Hydrochlorothiazide (Hydrodiuril) 25 mg PO DAILY [facility] Last Admin: 11/15/18 10:08 Dose: 25 mg Metronidazole (Flagyl) 500 mg in 100 mls @ 100 mls/hr IVPB Q8H [facility]; Protocol Last Admin: 11/15/18 10:14 Dose: 100 mls/hr Meropenem 500 mg/ Sodium (Chloride) 100 mls @ 100 mls/hr IVPB Q12H [facility]; Protocol Last Admin: 11/15/18 13:30 Dose: 100 mls/hr Insulin Aspart (Novolog) 0 unit SC ACHS [facility]; Protocol Last Admin: 11/15/18 12:25 Dose: 3 unit Lidocaine (Lidoderm) 2 ea TD DAILY [facility] Last Admin: 11/15/18 10:07 Dose: 2 ea Losartan Potassium (Cozaar) 25 mg PO DAILY [facility] Last Admin: 11/15/18 10:09 Dose: 25 mg Metoprolol Succinate (Toprol Xl) 100 mg PO DAILY [facility] Last Admin: 11/15/18 10:08 Dose: 100 mg Pantoprazole Sodium (Protonix Ec Tab) 40 mg PO DAILY [facility] Last Admin: 11/15/18 10:08 Dose: 40 mg - Labs Labs: 11/15/18 06:49 11/15/18 06:49 PT 15.2 SECONDS (9.7-12.2) H 10/27/18 03:32 INR 1.4 10/27/18 03:32 APTT 66 SECONDS (21-34) H 10/27/18 03:32 Assessment and Plan - Assessment and Plan (Free Text) Assessment: FOLLOW UP WITH DR SULLIVAN IN 1-2 WEEKS ----CALL FOR APPOINTMENT FOLLOW UP WITH DR RECIO IN HIS OFFICE IN 2 WEEKS -----CALL FOR APPOINTMENT ADDRESS YOUR RUPTURED APPENDIX AT YOUR VISIT FOLLOW UP WITH DR DR HUIZAR ----CALL FOR APPOINTMENT CONTINUE HOME MEDICATION NEW PRESCRIPTION GIVEN AMLODIPINE 10 MG DAILY BY MOUTH ELIQUIS 5 MG BY MOUTH TWICE A DAY KEFLEX 500 MG BY MOUTH TWICE A DAY FOR 5 DAYS HYDRALAZINE 50 MG BY MOUTH TWICE A DAY [place]AN 25 MG BY MOUTH DAILY TROPOL XL 100 MG BY MOUTH DAILY TUMS 500 MG PO BID [facility] FOR MEDICAL MANAGEMENT OF MEDICATION AND HOME PT CALL DR SULLIVAN IF SYMPTOM RETURN OR WORSENING
--- NOTE | 2018-11-15 17:36 | CP.PCM.PN ---
Subjective - Date & Time of Evaluation Date of Evaluation: 11/15/18 Time of Evaluation: 08:00 - Subjective Subjective: HAS NEW DVT STARTED ON ANTICOAGULATION IV ANTIBIOTIC SWITCHED TO po ABD IS SOFT AFEBRILE AND WBC WNL WILL FOLLOW WITH DR RECIO- VASCULAR / GEN SURGERY INSTRUCTIONS GIVEN TO Objective - Vital Signs/Intake and Output Vital Signs (last 24 hours): Temp Pulse Resp BP Pulse Ox 97.9 F 87 20 130/68 97 11/15/18 07:30 11/15/18 13:36 11/15/18 07:30 11/15/18 07:30 11/15/18 07:30 Intake and Output: 11/15/18 11/15/18 06:59 18:59 Intake Total 310 Output Total 500 Balance -190 - Medications Medications: Current Medications Amlodipine Besylate (Norvasc) 10 mg PO DAILY [facility] Last Admin: 11/15/18 10:09 Dose: 10 mg Calcium Carbonate (Tums) 500 mg PO BID [facility] Last Admin: 11/15/18 12:10 Dose: 500 mg Enoxaparin Sodium (Lovenox) 120 mg SC Q12H [facility] Last Admin: 11/15/18 12:25 Dose: 120 mg Hydralazine HCl (Apresoline) 50 mg PO BID [facility] Last Admin: 11/15/18 10:08 Dose: 50 mg Hydrochlorothiazide (Hydrodiuril) 25 mg PO DAILY [facility] Last Admin: 11/15/18 10:08 Dose: 25 mg Metronidazole (Flagyl) 500 mg in 100 mls @ 100 mls/hr IVPB Q8H [facility]; Protocol Last Admin: 11/15/18 10:14 Dose: 100 mls/hr Meropenem 500 mg/ Sodium (Chloride) 100 mls @ 100 mls/hr IVPB Q12H [facility]; Protocol Last Admin: 11/15/18 13:30 Dose: 100 mls/hr Insulin Aspart (Novolog) 0 unit SC ACHS [facility]; Protocol Last Admin: 11/15/18 12:25 Dose: 3 unit Lidocaine (Lidoderm) 2 ea TD DAILY [facility] Last Admin: 11/15/18 10:07 Dose: 2 ea Losartan Potassium (Cozaar) 25 mg PO DAILY [facility] Last Admin: 11/15/18 10:09 Dose: 25 mg Metoprolol Succinate (Toprol Xl) 100 mg PO DAILY [facility] Last Admin: 11/15/18 10:08 Dose: 100 mg Pantoprazole Sodium (Protonix Ec Tab) 40 mg PO DAILY [facility] Last Admin: 11/15/18 10:08 Dose: 40 mg - Labs Labs: 11/15/18 06:49 11/15/18 06:49 PT 15.2 SECONDS (9.7-12.2) H 10/27/18 03:32 INR 1.4 10/27/18 03:32 APTT 66 SECONDS (21-34) H 10/27/18 03:32 Assessment and Plan (1) Abdominal pain Status: Acute (2) Acute appendicitis with rupture Status: Acute
[2018-11-15 17:54] VITALS: BP 129/66; PULSE 88; TEMP 98.8; O2SAT 95
[2018-11-15 23:14] LABS: SQUAMOUS EPITHIAL < 1 /hpf (0-5); URINE BACTERIA RARE (<OCC); URINE BILIRUBIN NEGATIVE (NEGATIVE); URINE BLOOD NEGATIVE (NEGATIVE); URINE CLARITY Clear (Clear); URINE COLOR Yellow (YELLOW); URINE GLUCOSE (UA) NORMAL (Normal); URINE LEUKOCYTE ESTERASE TRACE Leu/uL (Negative); URINE PROTEIN 1+ mg/dL (NEGATIVE); URINE UROBILINOGEN NORMAL mg/dL (0.2-1.0)
== END 2018-11-15 18:29 | disposition home or self-care (01) | DRG 371 ==
LOC: C.ER 19:34 → C.9E 22:50 → OBSVTOIN 22:50 → INTOOBSV 22:50 → C.5S 10-24 01:31 → C.6T 10-25 19:25 → C.9I 10-26 22:03 → C.6T 10-26 22:03 → OBSVTOIN 10-27 06:32 → INTOOBSV 10-27 06:32 → C.9I 10-28 13:41 → C.6T 10-31 13:00
PROVIDERS: ADMIT Internal Medicine Critical Care Medicine; ATTEND Internal Medicine Critical Care Medicine
PROC: 5A09357 Assistance with Respiratory Ventilation, Less than 24 Consecutive Hours, Continuous Positive Airway Pressure (ICD-10-PCS; 2018-10-26)
PROC: 5A1945Z Respiratory Ventilation, 24-96 Consecutive Hours (ICD-10-PCS; principal; 2018-10-27)
PROC: 0BH17EZ Insertion of Endotracheal Airway into Trachea, Via Natural or Artificial Opening (ICD-10-PCS; 2018-10-27)
PROC: 5A09457 Assistance with Respiratory Ventilation, 24-96 Consecutive Hours, Continuous Positive Airway Pressure (ICD-10-PCS; 2018-10-30)
DX: K35.32 Acute appendicitis with perforation, localized peritonitis, and gangrene, without abscess (principal); J96.02 Acute respiratory failure with hypercapnia; N17.9 Acute kidney failure, unspecified; R65.21 Severe sepsis with septic shock; E87.2 Acidosis; E87.0 Hyperosmolality and hypernatremia; I13.0 Hypertensive heart and chronic kidney disease with heart failure and stage 1 through stage 4 chronic kidney disease, or unspecified chronic kidney disease; I82.432 Acute embolism and thrombosis of left popliteal vein; E11.22 Type 2 diabetes mellitus with diabetic chronic kidney disease; I12.9 Hypertensive chronic kidney disease with stage 1 through stage 4 chronic kidney disease, or unspecified chronic kidney disease; J44.9 Chronic obstructive pulmonary disease, unspecified; N18.9 Chronic kidney disease, unspecified; D64.9 Anemia, unspecified; D69.6 Thrombocytopenia, unspecified; K21.9 Gastro-esophageal reflux disease without esophagitis; I25.10 Atherosclerotic heart disease of native coronary artery without angina pectoris; I50.9 Heart failure, unspecified; G47.33 Obstructive sleep apnea (adult) (pediatric); E78.5 Hyperlipidemia, unspecified; E78.00 Pure hypercholesterolemia, unspecified; E66.9 Obesity, unspecified; Z95.1 Presence of aortocoronary bypass graft; Z86.73 Personal history of transient ischemic attack (TIA), and cerebral infarction without residual deficits; Z87.891 Personal history of nicotine dependence; Z90.49 Acquired absence of other specified parts of digestive tract

== ENCOUNTER 2019-01-01 15:12 | Inpatient (IN) | payer MEDICARE ==
[2019-01-01 15:25] VITALS: BMI 37.5
--- NOTE | 2019-01-01 15:35 | C.PDOC ---
History Of Present Illness 78 y/o male with a PMHx of HTN, DM, B/L DVT, CAD, and s/p CABG presents to the ED for evaluation of SOB for 2 days, worse when lying flat. Patient notes he has to prop himself up on 2 pillows in order to sleep. Also states that his notices he stops breathing at night, and he is concerned for sleep apnea. He does report intermittent dry cough. Of note patient was recently discharged on 11/15/18 after 3 week hospitalization for ruptured appendicitis and renal insufficiency. Of note, patient found to have bilateral DVT during that admission and was started on Eliquis. States that he took the medication for a month and then stopped because "the doctor did not refill it". Currently takes ASA daily. Patient denies fevers, chills, chest pain, palpitations, back pain, or leg edema. Time Seen by Provider: 01/01/19 15:28 Chief Complaint (Nursing): Shortness Of Breath History Per: Patient History/Exam Limitations: no limitations Onset/Duration Of Symptoms: Days (2) Current Symptoms Are (Timing): Still Present Exacerbating Factor(s): Laying Flat Pain Scale Rating Of: 0 Associated Symptoms: denies: Fever, Sweating, Chest Pain, Productive Cough Past Medical History Reviewed: Historical Data, Nursing Documentation, Vital Signs Vital Signs: Last Vital Signs Temp 98.6 F 01/01/19 15:24 Pulse 75 01/01/19 15:24 Resp 18 01/01/19 15:24 BP 172/79 H 01/01/19 15:24 Pulse Ox 95 01/01/19 15:24 - Medical History PMH: Arthritis, Bronchitis, CAD, CVA, Diabetes, Deep Vein Thrombosis (Bilateral DVT, on Eliquis), HTN, Hypercholesterolemia Denies: Chronic Kidney Disease Surgical History: CABG (2011), Cholecystectomy - [facility] Procedures ASSISTANCE WITH RESPIRATORY VENTILATION, 24-96 HRS, CPAP (10/23/18) ASSISTANCE WITH RESPIRATORY VENTILATION, <24 HRS, CPAP (10/23/18) DRAINAGE OF GALLBLADDER WITH DRAINAGE DEVICE, PERC APPROACH (05/10/17) ENDO EXCISION/DEST OF LESION OR TISSUE OF STOMACH (12/31/14) INSERTION OF ENDOTRACHEAL AIRWAY INTO TRACHEA, VIA OPENING (10/23/18) RESPIRATORY VENTILATION, 24-96 CONSECUTIVE HOURS (12/12/18) ULTRASONOGRAPHY OF RIGHT AND LEFT HEART, TRANSESOPHAGEAL (05/10/17) Family History: States: Unknown Family Hx - Social History Hx Tobacco Use: No Hx Alcohol Use: No Hx Substance Use: No - Immunization History Hx Tetanus Toxoid Vaccination: No Hx Influenza Vaccination: Yes Hx Pneumococcal Vaccination: Yes Review Of Systems Except As Marked, All Systems Reviewed And Found Negative. Constitutional: Positive for: Other (Sleep apnea). Negative for: Fever, Chills, Sweats Eyes: Negative for: Vision Change Cardiovascular: Negative for: Chest Pain, Palpitations Respiratory: Positive for: Cough, Shortness of Breath. Negative for: Hemoptysis, Sputum Gastrointestinal: Negative for: Nausea, Vomiting Genitourinary: Negative for: Dysuria, Hematuria Musculoskeletal: Negative for: Back Pain, Other (Leg edema) Neurological: Negative for: Weakness, Numbness, Headache, Dizziness Physical Exam - Physical Exam Appears: Non-toxic, No Acute Distress Skin: Warm, Dry, No Diaphoretic Head: Atraumatic, Normacephalic Eye(s): bilateral: Normal Inspection, PERRL, EOMI Oral Mucosa: Moist Neck: Normal ROM Chest: Symmetrical, No Tenderness, No Ecchymosis Cardiovascular: Rhythm Regular, No Murmur Respiratory: No Rales, No Rhonchi, No Wheezing, Other (Lungs clear bilaterally, good air entry, patient speaking in full sentences) Gastrointestinal/Abdominal: Soft, No Tenderness, No Distention Back: No CVA Tenderness, No Vertebral Tenderness Extremity: Normal ROM (x 4), No Pedal Edema, No Calf Tenderness Pulses: Left Dorsalis Pedis: Normal, Right Dorsalis Pedis: Normal Neurological/Psych: Oriented x3, Normal Speech, Normal Cognition, Normal Cranial Nerves Gait: Steady ED Course And Treatment - Laboratory Results Result Diagrams: 01/01/19 16:04 01/01/19 16:04 Lab Results: 01/01/19 16:04 01/01/19 16:04 ECG: Viewed By Me ECG Rhythm: Sinus Rhythm Interpretation Of ECG: Rate 76; NSR; Normal Intervals; No STEMI, nn specific ST/T wave changes Rate From EC O2 Sat by Pulse Oximetry: 95 (NC) Pulse Ox Interpretation: Normal - Other Rad CXR X-Ray: Read By Radiologist Interpretation: Accession No. : [id number]. Patient Name / ID : MIHAELA YE / [id number]. Exam Date : 01/01/2019 16:13:00 ( Approved ). Study Co mment : Sex / Age : M / 78Y. Creator : Radha Stein MD. Dictator : Radha Stein MD. Fire Alarm Dispatcher : Vascular Surgery Physician : Radha Stein MD. Approver2 : Report Date : 01/01/2019 16:18:03. My Comment : . Date of service: 01/01/2019. HISTORY: Shortness of breath. COMPARISON: 10/23/2018. TECHNIQUE: Chest PA and lateral. FINDINGS: LINES AND TUBES: None. LUNG AND PLEURA: The lungs are well inflated and clear. No pleural effusion or pneumothorax. HEART AND MEDIASTINUM: There is persistent mild cardiomegaly. Status post CABG. There are aortic atherosclerotic calcifications present. The hilar and mediastinal contours are within normal limits. SKELETAL STRUCTURES: The bony structures are within normal limits for the patient's age. VISUALIZED UPPER ABDOMEN: Normal. OTHER FINDINGS: None. IMPRESSION: No active pulmonary disease. - CT Scan/US CTA Chest Other Rad Studies (CT/US): Read By Radiologist, Radiology Report Reviewed CT/US Interpretation: Accession No. : [id number]. Patient Name / ID : MIHAELA YE / [id number]. Exam Date : 01/01/2019 17:22:34 ( Approved ). Study Comment : Sex / Age : M / 78Y. Creator : Viridiana Claudio. Dictator : Scarlet Cherry MD. Fire Alarm Dispatcher : Vascular Surgery Physician : Scarlet Cherry MD. Approver2 : Report Date : 01/01/2019 17:53:34. My Comment : . Date of service: 01/01/2019. CTA chest PE protocol. Indication: SOB, h/o DVT. Technique: Contiguous axial images were obtained through the chest with intravenous contrast enhancement. Sagittal and coronal reconstructions were generated and reviewed. This CT exam was performed using 1 or more of the following dose reduction techniques: Automated exposure control, adjustment of the MAA and/or kV according to patient size, and/or use of iterative reconstruction technique. IV contrast: 100 cc Visipaque 320 IV. . Radiation dose (DLP): 590.31 MGy-cm. Comparison: Chest x-ray performed 01/01/19, CT abdomen and pelvis performed 08/30/15 and 05/17/17. Findings: Visualized portions of the inferior thyroid gland demonstrates heterogeneous exophytic nodules including 17 x 18 mm heterogeneous nodule with calcification and 12 x 13 mm partially calcified nodule also arising from the left lower pole. The mediastinal and hilar vascular structures appear within normal limits. Median sternotomy wires. Cardiomegaly. Coronary artery calcifications. No large central or segmental pulmonary embolus evident. Minimal lingular a telectasis/scarring. No focal consolidation. No pleural effusion. No pneumothorax. Thick-walled esophagus. Partially imaged 4.9 x 3.4 cm left upper quadrant retroperitoneal cystic appearing mass (approximately 6 HU), indeterminate etiology. Cholecystectomy clips. Degenerative changes of the spine. Impression: Thick-walled irregular esophagus. Correlate clinically and correlate clinically for possibility of esophagitis. Recommend further evaluation with endoscopy if indicated. Heterogeneous appearance of the included inferior thyroid gland including 17 x 18 mm heterogeneous nodule with calcification and 12 x 13 mm partially calcified nodules which appear exophytic arising from the left lower pole. Outpatient thyroid ultrasound may be considered for further evaluation if indicated. No large central or segmental pulmonary embolus identified. Minimal lingular atelectasis/scarring. Ca rdiomegaly. Coronary artery calcifications. Partially imaged left upper quadrant retroperitoneal cystic appearing mass, indeterminate etiology. Recommend further evaluation with outpatient ultrasound. If unable to adequately characterize by ultrasound, CT of the abdomen may be considered. This finding has been demonstrated on studies as far back as 12/31/14. Medical Decision Making Medical Decision Making: Records reviewed: Patient was here with complicated hospital stay 10/23/18- 11/15/18, initially admitted for ruptured appendicitis and renal insufficiency. While in the hospital, patient was found to have bilateral DVT on doppler study 11/14/18, and started on Eliquis. Patient and confirm that patient took the Eliquis for 30 days, but then stopped. It is unclear whether patient was instructed to stop. Impression: SOB, Hx of DVT Initial Plan: - Blood work - Urinalysis - Flu swab - EKG - Chest x-ray - CTA Chest Labs reviewed, unremarkable Troponin 0.014 BNP 402 Flu negative EKG shows no acute changes, compared to 11/08/18 CXR negative for active disease CTA is negative for PE. 19:[address] Madison, will admit patient for telemetry observation secondary to patient's cardiac history. Requests 20mg IV Lasix. Disposition - Disposition Disposition: HOSPITALIZED Disposition Time: 19:03 Condition: STABLE - Clinical Impression Clinical Impression: Shortness of breath - PA / [employer] / Resident Statement MD/DO has reviewed & agrees with the documentation as recorded. - Scribe Statement The provider has reviewed the documentation as recorded by the Scribe Krysten Chavarria All medical record entries made by the Scribe were at my direction and personally dictated by me. I have reviewed the chart and agree that the record accurately reflects my personal performance of the history, physical exam, medical decision making, and the department course for this patient. I have also personally directed, reviewed, and agree with the discharge instructions and disposition. Decision To Admit - Pt Status Changed To: Hospital Disposition Of: Observation - . Bed Request Type: Telemetry Patient Diagnosis: Shortness of breath
[2019-01-01 16:12] LABS: BASO % 0.3 % (0.0-2.0); EOS # 0.3 K/uL (0.0-0.7); EOS % 3.8 % (0.0-4.0); LYMPH # 1.1 K/uL (1.0-4.3); LYMPH % 14.9 % (20.0-40.0); MEAN CELL VOLUME 93.1 fL (80.0-94.0); MEAN CORPUSCULAR HEMOGLOBIN 30.9 pg (27.0-31.0); MEAN CORPUSCULAR HGB CONC 33.2 g/dL (33.0-37.0); MEAN PLATELET VOLUME 7.3 fL (7.2-11.7); MONO # 0.8 K/uL (0.0-0.8); MONO % 11.4 % (0.0-10.0); NEUT # 4.9 K/uL (1.8-7.0); NEUT % 69.6 % (50.0-75.0); RBC 4.02 Mil/uL (4.40-5.90)
[2019-01-01 16:16] LABS: HEMOGLOBIN 12.4 g/dL (12.0-18.0); INR 1.1; PROTHROMBIN TIME 12.2 SECONDS (9.7-12.2); WHITE BLOOD COUNT 7.1 K/uL (4.8-10.8)
--- NOTE | 2019-01-01 16:21 | RAD ---
Date of service: 01/01/2019 HISTORY: Shortness of breath COMPARISON: 10/23/2018. TECHNIQUE: Chest PA and lateral FINDINGS: LINES AND TUBES: None. LUNG AND PLEURA: The lungs are well inflated and clear. No pleural effusion or pneumothorax. HEART AND MEDIASTINUM: There is persistent mild cardiomegaly. Status post CABG. There are aortic atherosclerotic calcifications present. The hilar and mediastinal contours are within normal limits. SKELETAL STRUCTURES: The bony structures are within normal limits for the patient's age. VISUALIZED UPPER ABDOMEN: Normal. OTHER FINDINGS: None. IMPRESSION: No active pulmonary disease.
[2019-01-01 16:25] LABS: ALB/GLOB RATIO 1.7 (1.0-2.1); ALBUMIN 4.3 g/dL (3.5-5.0); ALT/SGPT 22 U/L (21-72); AST/SGOT 21 U/L (17-59); BLOOD UREA NITROGEN 33 mg/dL (9-20); CALCIUM 9.1 mg/dl (8.6-10.4); GFR NON-AFRICAN AMERICAN 54
[2019-01-01 16:37] LABS: B-TYPE NATRIURETIC PEPTIDE 402 pg/mL (0-900)
[2019-01-01] MEDS ORDERED: Iodixanol 320 MG/ML 100 ML BOTTLE IV ONE (17:02)
[2019-01-01] MEDS: Sodium Chloride 0.9% 1,000 ML IV SCH (17:30)
[2019-01-01 17:41] LABS: SQUAMOUS EPITHIAL < 1 /hpf (0-5); URINE BILIRUBIN NEGATIVE (NEGATIVE); URINE BLOOD NEGATIVE (NEGATIVE); URINE CLARITY Hazy (Clear); URINE COLOR Yellow (YELLOW); URINE GLUCOSE (UA) NORMAL (Normal); URINE LEUKOCYTE ESTERASE NEG Leu/uL (Negative); URINE PROTEIN 2+ mg/dL (NEGATIVE); URINE UROBILINOGEN NORMAL mg/dL (0.2-1.0)
--- NOTE | 2019-01-01 19:00 | CT ---
Date of service: 01/01/2019 CTA chest PE protocol Indication: SOB, h/o DVT Technique: Contiguous axial images were obtained through the chest with intravenous contrast enhancement. Sagittal and coronal reconstructions were generated and reviewed. This CT exam was performed using 1 or more of the following dose reduction techniques: Automated exposure control, adjustment of the MAA and/or kV according to patient size, and/or use of iterative reconstruction technique. IV contrast: 100 cc Visipaque 320 IV Radiation dose (DLP): 590.31 MGy-cm. Comparison: Chest x-ray performed 01/01/19, CT abdomen and pelvis performed 08/30/15 and 05/17/17 Findings: Visualized portions of the inferior thyroid gland demonstrates heterogeneous exophytic nodules including 17 x 18 mm heterogeneous nodule with calcification and 12 x 13 mm partially calcified nodule also arising from the left lower pole. The mediastinal and hilar vascular structures appear within normal limits. Median sternotomy wires. Cardiomegaly. Coronary artery calcifications. No large central or segmental pulmonary embolus evident. Minimal lingular atelectasis/scarring. No focal consolidation. No pleural effusion. No pneumothorax. Thick-walled esophagus. Partially imaged 4.9 x 3.4 cm left upper quadrant retroperitoneal cystic appearing mass (approximately 6 HU), indeterminate etiology. Cholecystectomy clips. Degenerative changes of the spine. Impression: Thick-walled irregular esophagus. Correlate clinically and correlate clinically for possibility of esophagitis. Recommend further evaluation with endoscopy if indicated. Heterogeneous appearance of the included inferior thyroid gland including 17 x 18 mm heterogeneous nodule with calcification and 12 x 13 mm partially calcified nodules which appear exophytic arising from the left lower pole. Outpatient thyroid ultrasound may be considered for further evaluation if indicated. No large central or segmental pulmonary embolus identified. Minimal lingular atelectasis/scarring. Cardiomegaly. Coronary artery calcifications. Partially imaged left upper quadrant retroperitoneal cystic appearing mass, indeterminate etiology. Recommend further evaluation with outpatient ultrasound. If unable to adequately characterize by ultrasound, CT of the abdomen may be considered. This finding has been demonstrated on studies as far back as 12/31/14.
[2019-01-01] MEDS ORDERED: Glucagon Recombinant 1 mg Inj IM PRN (23:33)
[2019-01-01] MEDS ORDERED: Dextrose 50% SYRINGE Inj (50 ml) IV PRN (23:33)
[2019-01-02] MEDS: Sodium Chloride 0.9% 1,000 ML IV SCH ×2 (04:00→13:59)
[2019-01-02] MEDS: (Novolog) Insulin Aspart, Recombinant 100 u/ml 10 ml vial SC SCH ×4 (08:02→21:45)
[2019-01-02] MEDS: Metoprolol Succinate 100 mg XL Tab PO SCH (09:50)
[2019-01-02] MEDS ORDERED: ASPIRIN PO SCH (10:00)
[2019-01-02] MEDS ORDERED: DIPYRIDAMOLE PO SCH (10:00)
--- NOTE | 2019-01-02 15:20 | CP.PCM.CON ---
History of Present Illness - History of Present Illness History of Present Illness: 78 y/o male with a PMHx of HTN, DM, B/L DVT, CAD, and s/p CABG presents to the ED for evaluation of SOB for 2 days, worse when lying flat. Patient notes he has to prop himself up on 2 pillows in order to sleep. Also states that his notices he stops breathing at night, and he is concerned for sleep apnea. He does report intermittent dry cough. Of note patient was recently discharged on 11/15/18 after 3 week hospitalization for ruptured appendicitis and renal insufficiency. Of note, patient found to have bilateral DVT during that admission and was started on Eliquis. States that he took the medication for a month and then stopped because "the doctor did not refill it". Currently takes ASA daily. Patient denies fevers, chills, chest pain, palpitations, back pain, or leg edema. At the time of examination sitting in bed. Still have some chest pain off and on. Past Patient History - Infectious Disease Hx of Infectious Diseases: None - Past Medical History & Family History Past Medical History?: Yes - Past Social History Smoking Status: Never Smoked - CARDIAC Hx Hypercholesterolemia: Yes Hx Hypertension: Yes - PULMONARY Hx Bronchitis: Yes - NEUROLOGICAL Hx Neurological Disorder: Yes HX Cerebrovascular Accident: Yes - HEENT Hx HEENT Problems: No - RENAL Hx Chronic Kidney Disease: No - ENDOCRINE/METABOLIC Hx Endocrine Disorders: Yes Hx Diabetes Mellitus Type 2: Yes - HEMATOLOGICAL/ONCOLOGICAL Hx Blood Disorders: Yes Hx Blood Transfusions: Yes Hx Blood Transfusion Reaction: No - INTEGUMENTARY Hx Dermatological Problems: No - MUSCULOSKELETAL/RHEUMATOLOGICAL Hx Arthritis: Yes Hx Falls: No - GASTROINTESTINAL Hx Gastrointestinal Disorders: Yes - GENITOURINARY/GYNECOLOGICAL Hx Genitourinary Disorders: No - PSYCHIATRIC Hx Substance Use: No - SURGICAL HISTORY Hx Appendectomy: Yes (2017) Hx Cholecystectomy: Yes Hx Coronary Artery Bypass Graft: Yes (2011) - ANESTHESIA Hx Anesthesia: Yes Hx Anesthesia Reactions: No Hx Malignant Hyperthermia: No Meds Allergies/Adverse Reactions: Allergies Allergy/AdvReac Type Severity Reaction Status Date / Time No Known Allergies Allergy Verified 01/01/19 15:24 - Medications Medications: Current Medications Amlodipine Besylate (Norvasc) 10 mg PO DAILY [facility] Last Admin: 01/02/19 09:50 Dose: 10 mg Apixaban (Eliquis) 5 mg PO BID [facility] Last Admin: 01/02/19 09:51 Dose: 5 mg Dextrose (Dextrose 50% Inj) 0 ml IV STAT PRN; Protocol PRN Reason: Hypoglycemia Protocol Dextrose (Glutose 15) 0 gm PO ONCE PRN; Protocol PRN Reason: Hypoglycemia Protocol Glimepiride (Amaryl) 4 mg PO DAILY [facility] Last Admin: 01/02/19 09:50 Dose: 4 mg Glucagon (Glucagen Diagnostic Kit) 0 mg IM STAT PRN; Protocol PRN Reason: Hypoglycemia Protocol Home Med (Aspirin/Dipyridamole [Aggrenox 25-200 Mg]) 1 ea PO BID [facility] Hydralazine HCl (Apresoline) 50 mg PO BID [facility] Last Admin: 01/02/19 09:50 Dose: Not Given Hydrochlorothiazide (Hydrodiuril) 25 mg PO DAILY [facility] Last Admin: 01/02/19 09:51 Dose: 25 mg Sodium Chloride (Sodium Chloride 0.9%) 1,000 mls @ 100 mls/hr IV .Q10H [facility] Last Admin: 01/02/19 13:59 Dose: 100 mls/hr Dextrose (Dextrose 5% In Water 1000 Ml) 1,000 mls @ 0 mls/hr IV .Q0M PRN; Protocol PRN Reason: Hypoglycemia Protocol Insulin Aspart (Novolog) 0 unit SC [facility]; Protocol Last Admin: 01/02/19 11:45 Dose: 4 units Losartan Potassium (Cozaar) 25 mg PO DAILY [facility] Last Admin: 01/02/19 09:51 Dose: 25 mg Metoprolol Succinate (Toprol Xl) 100 mg PO DAILY [facility] Last Admin: 01/02/19 09:50 Dose: 100 mg Rosuvastatin Calcium (Crestor) 10 mg PO [facility] Physical Exam - Head Exam Head Exam: NORMOCEPHALIC - Neck Exam Neck exam: Positive for: Normal Inspection - Respiratory Exam Respiratory Exam: NORMAL BREATHING PATTERN - Cardiovascular Exam Cardiovascular Exam: REGULAR RHYTHM, Systolic Murmur - Extremities Exam Extremities exam: Positive for: normal inspection, pedal edema - Neurological Exam Neurological exam: Alert, Oriented x3 Results - Vital Signs Recent Vital Signs: Last Vital Signs Temp 97.4 F L 01/02/19 12:00 Pulse 67 01/02/19 12:00 Resp 15 01/02/19 12:00 BP 138/58 L 01/02/19 12:00 Pulse Ox 97 01/02/19 12:00 - Labs Result Diagrams: 01/01/19 16:04 01/01/19 16:04 Labs: Laboratory Results - last 24 hr 01/01/19 01/01/19 01/01/19 16:04 16:04 16:04 WBC 7.1 D RBC 4.02 L Hgb 12.4 D Hct 37.4 MCV 93.1 MCH 30.9 MCHC 33.2 RDW 15.0 H Plt Count 195 D MPV 7.3 Neut % (Auto) 69.6 Lymph % (Auto) 14.9 L [place] % (Auto) 11.4 H Eos % (Auto) 3.8 Baso % (Auto) 0.3 Neut # (Auto) 4.9 Lymph # (Auto) 1.1 [place] # (Auto) 0.8 Eos # (Auto) 0.3 Baso # (Auto) 0.0 PT 12.2 INR 1.1 APTT 70 H Sodium 138 Potassium 5.1 Chloride 103 Carbon Dioxide 28 Anion Gap 12 BUN 33 H Creatinine 1.3 Est GFR ( Amer) > 60 Est GFR (Non-Af Amer) 54 POC Glucose (mg/dL) Random Glucose 216 H Calcium 9.1 Total Bilirubin 0.4 AST 21 ALT 22 Alkaline Phosphatase 59 Troponin I 0.0140 NT-Pro-B Natriuret Pep 402 Total Protein 6.9 Albumin 4.3 Globulin 2.6 Albumin/Globulin Ratio 1.7 Urine Color Urine Clarity Urine pH Ur Specific [place] Urine Protein Urine Glucose (UA) Urine Ketones Urine Blood Urine Nitrate Urine Bilirubin Urine Urobilinogen Ur Leukocyte Esterase Urine WBC (Auto) Urine RBC (Auto) Ur Squamous Epith Cells Influenza Typ A,B (EIA) 01/01/19 01/01/19 01/02/19 16:04 17:18 00:58 WBC RBC Hgb Hct MCV MCH MCHC RDW Plt Count MPV Neut % (Auto) Lymph % (Auto) [place] % (Auto) Eos % (Auto) Baso % (Auto) Neut # (Auto) Lymph # (Auto) [place] # (Auto) Eos # (Auto) Baso # (Auto) PT INR APTT Sodium Potassium Chloride Carbon Dioxide Anion Gap BUN Creatinine Est GFR ( Amer) Est GFR (Non-Af Amer) POC Glucose (mg/dL) Random Glucose Calcium Total Bilirubin AST ALT Alkaline Phosphatase Troponin I < 0.0120 NT-Pro-B Natriuret Pep Total Protein Albumin Globulin Albumin/Globulin Ratio Urine Color Yellow Urine Clarity Hazy Urine pH 5.0 Ur Specific [place] 1.023 Urine Protein 2+ H Urine Glucose (UA) Normal Urine Ketones Negative Urine Blood Negative Urine Nitrate Negative Urine Bilirubin Negative Urine Urobilinogen Normal Ur Leukocyte Esterase Neg Urine WBC (Auto) 1 Urine RBC (Auto) 1 Ur Squamous Epith Cells < 1 Influenza Typ A,B (EIA) Negative for flu a/b 01/02/19 01/02/19 02:37 07:21 WBC RBC Hgb Hct MCV MCH MCHC RDW Plt Count MPV Neut % (Auto) Lymph % (Auto) [place] % (Auto) Eos % (Auto) Baso % (Auto) Neut # (Auto) Lymph # (Auto) [place] # (Auto) Eos # (Auto) Baso # (Auto) PT INR APTT Sodium Potassium Chloride Carbon Dioxide Anion Gap BUN Creatinine Est GFR ( Amer) Est GFR (Non-Af Amer) POC Glucose (mg/dL) 156 H 145 H Random Glucose Calcium Total Bilirubin AST ALT Alkaline Phosphatase Troponin I NT-Pro-B Natriuret Pep Total Protein Albumin Globulin Albumin/Globulin Ratio Urine Color Urine Clarity Urine pH Ur Specific [place] Urine Protein Urine Glucose (UA) Urine Ketones Urine Blood Urine Nitrate Urine Bilirubin Urine Urobilinogen Ur Leukocyte Esterase Urine WBC (Auto) Urine RBC (Auto) Ur Squamous Epith Cells Influenza Typ A,B (EIA) Assessment & Plan (1) Chest pain Assessment and Plan: Patient with history of CAD and CABG. Now with chest pain. There are multiple factors for the progression of disease. Treat as ACS. Obtain old record. Echocardiogram to assess LV systolic function. Status: Acute (2) CAD (coronary artery disease) of artery bypass graft Assessment and Plan: Obtain old record. Lipid lowering agents with beta blockers and Nitrates as needed. Status: Chronic
--- NOTE | 2019-01-02 17:56 | CARD ---
APPROVED REPORT Date of service: 01/01/2019 EKG Measurement Heart [id number] DC [id number] [id number] <Conclusion> Normal sinus rhythm Baseline artifact Otherwise normal
--- NOTE | 2019-01-02 18:32 | CP.PCM.PN ---
Subjective - Date & Time of Evaluation Date of Evaluation: 01/02/19 Time of Evaluation: 18:32 Objective - Vital Signs/Intake and Output Vital Signs (last 24 hours): Temp Pulse Resp BP Pulse Ox 97.4 F L 67 15 138/58 L 97 01/02/19 12:00 01/02/19 12:00 01/02/19 12:00 01/02/19 12:00 01/02/19 12:00 Intake and Output: 01/02/19 01/02/19 06:59 18:59 Intake Total 120 540 Output Total 700 Balance -580 540 - Medications Medications: Current Medications Amlodipine Besylate (Norvasc) 10 mg PO DAILY [facility] Last Admin: 01/02/19 09:50 Dose: 10 mg Apixaban (Eliquis) 5 mg PO BID [facility] Last Admin: 01/02/19 17:36 Dose: 5 mg Dextrose (Dextrose 50% Inj) 0 ml IV STAT PRN; Protocol PRN Reason: Hypoglycemia Protocol Dextrose (Glutose 15) 0 gm PO ONCE PRN; Protocol PRN Reason: Hypoglycemia Protocol Glimepiride (Amaryl) 4 mg PO DAILY [facility] Last Admin: 01/02/19 09:50 Dose: 4 mg Glucagon (Glucagen Diagnostic Kit) 0 mg IM STAT PRN; Protocol PRN Reason: Hypoglycemia Protocol Home Med (Aspirin/Dipyridamole [Aggrenox 25-200 Mg]) 1 ea PO BID [facility] Hydralazine HCl (Apresoline) 50 mg PO BID [facility] Last Admin: 01/02/19 17:36 Dose: 50 mg Hydrochlorothiazide (Hydrodiuril) 25 mg PO DAILY [facility] Last Admin: 01/02/19 09:51 Dose: 25 mg Sodium Chloride (Sodium Chloride 0.9%) 1,000 mls @ 100 mls/hr IV .Q10H [facility] Last Admin: 01/02/19 13:59 Dose: 100 mls/hr Dextrose (Dextrose 5% In Water 1000 Ml) 1,000 mls @ 0 mls/hr IV .Q0M PRN; Pr otocol PRN Reason: Hypoglycemia Protocol Insulin Aspart (Novolog) 0 unit SC ACHS [facility]; Protocol Last Admin: 01/02/19 17:36 Dose: 2 units Losartan Potassium (Cozaar) 25 mg PO DAILY [facility] Last Admin: 01/02/19 09:51 Dose: 25 mg Metoprolol Succinate (Toprol Xl) 100 mg PO DAILY [facility] Last Admin: 01/02/19 09:50 Dose: 100 mg Rosuvastatin Calcium (Crestor) 10 mg PO HS [facility] - Labs Labs: 01/01/19 16:04 01/01/19 16:04 PT 12.2 SECONDS (9.7-12.2) 01/01/19 16:04 INR 1.1 01/01/19 16:04 APTT 70 SECONDS (21-34) H 01/01/19 16:04
--- NOTE | 2019-01-02 18:33 | CP.PCM.HP ---
History of Present Illness - History of Present Illness History of Present Illness: 78 y/o male with a PMHx of HTN, DM, B/L DVT, CAD, and s/p CABG presents to the ED for evaluation of SOB for 2 days, worse when lying flat. Patient notes he has to prop himself up on 2 pillows in order to sleep. Also states that his notices he stops breathing at night, and he is concerned for sleep apnea. He does report intermittent dry cough. Of note patient was recently discharged on 11/15/18 after 3 week hospitalization for ruptured appendicitis and renal insufficiency. Of note, patient found to have bilateral DVT during that admission and was started on Eliquis. States that he took the medication for a month and then stopped because "the doctor did not refill it". Currently takes ASA daily. Patient denies fevers, chills, chest pain, palpitations, back pain, or leg edema. Present on Admission - Present on Admission Any Indicators Present on Admission: Yes History of DVT/PE: Yes History of Uncontrolled Diabetes: Yes Review of Systems - Review of Systems All systems: reviewed and no additional remarkable complaints except (As mentkatalina esteban in HPI) Past Patient History - Infectious Disease Hx of Infectious Diseases: None - Past Medical History & Family History Past Medical History?: Yes - Past Social History Smoking Status: Never Smoked - CARDIAC Hx Hypercholesterolemia: Yes Hx Hypertension: Yes - PULMONARY Hx Bronchitis: Yes - NEUROLOGICAL Hx Neurological Disorder: Yes HX Cerebrovascular Accident: Yes - HEENT Hx HEENT Problems: No - RENAL Hx Chronic Kidney Disease: No - ENDOCRINE/METABOLIC Hx Endocrine Disorders: Yes Hx Diabetes Mellitus Type 2: Yes - HEMATOLOGICAL/ONCOLOGICAL Hx Blood Disorders: Yes Hx Blood Transfusions: Yes Hx Blood Transfusion Reaction: No - INTEGUMENTARY Hx Dermatological Problems: No - MUSCULOSKELETAL/RHEUMATOLOGICAL Hx Arthritis: Yes Hx Falls: No - GASTROINTESTINAL Hx Gastrointestinal Disorders: Yes - GENITOURINARY/GYNECOLOGICAL Hx Genitourinary Disorders: No - PSYCHIATRIC Hx Substance Use: No - SURGICAL HISTORY Hx Appendectomy: Yes (2017) Hx Cholecystectomy: Yes Hx Coronary Artery Bypass Graft: Yes (2011) - ANESTHESIA Hx Anesthesia: Yes Hx Anesthesia Reactions: No Hx Malignant Hyperthermia: No Meds Allergies/Adverse Reactions: Allergies Allergy/AdvReac Type Severity Reaction Status Date / Time No Known Allergies Allergy Verified 01/01/19 15:24 Physical Exam - Head Exam Head Exam: NORMAL INSPECTION - Eye Exam Eye Exam: Normal appearance - ENT Exam ENT Exam: Mucous Membranes Moist - Respiratory Exam Respiratory Exam: Clear to Auscultation Bilateral - Cardiovascular Exam Cardiovascular Exam: REGULAR RHYTHM, +S1, +S2 - GI/Abdominal Exam GI & Abdominal Exam: Normal Bowel Sounds - Extremities Exam Extremities exam: Positive for: normal inspection - Neurological Exam Neurological exam: Alert, Oriented x3 - Psychiatric Exam Psychiatric exam: Normal Affect, Normal Mood Results - Vital Signs Recent Vital Signs: Last Vital Signs Temp 97.4 F L 01/02/19 12:00 Pulse 67 01/02/19 12:00 Resp 15 01/02/19 12:00 BP 138/58 L 01/02/19 12:00 Pulse Ox 97 01/02/19 12:00 - Labs Result Diagrams: 01/01/19 16:04 01/01/19 16:04 Labs: Laboratory Results - last 24 hr 01/02/19 01/02/19 01/02/19 00:58 02:37 07:21 POC Glucose (mg/dL) 156 H 145 H Troponin I < 0.0120 01/02/19 01/02/19 11:15 16:16 POC Glucose (mg/dL) 280 H 198 H Troponin I Assessment & Plan (1) Dizziness Status: Acute (2) Shortness of breath Status: Acute (3) CVA (cerebral vascular accident) Status: Acute (4) Diabetes mellitus Status: Chronic (5) Hypertension Status: Acute (6) CAD (coronary artery disease) of artery bypass graft Status: Chronic - Assessment and Plan (Free Text) Plan: Cardiology consult appreciated Cardiac enzymes negative Lasix Accu-Chek Insulin coverage Blood pressure control DVT/GI prophylaxis
[2019-01-03] MEDS: (Novolog) Insulin Aspart, Recombinant 100 u/ml 10 ml vial SC SCH ×4 (08:39→21:58)
[2019-01-03] MEDS: Metoprolol Succinate 100 mg XL Tab PO SCH (09:41)
--- NOTE | 2019-01-03 10:05 | VASCLAB ---
Date of service: 01/02/2019 PROCEDURE: Lower Extremity Venous Duplex Exam. HISTORY: Leg swelling PRIORS: None. TECHNIQUE: Bilateral common femoral, femoral, popliteal and posterior tibial, peroneal and great saphenous veins were evaluated. Flow was assessed with color Doppler, compressibility, assessment of phasic flow and augmentation response. Report prepared by VALERIA Santizo FINDINGS: RIGHT: 1. Common Femoral Vein: 1.1. Compressibility - Fully compressible: Thrombus - None : Flow - Phasic: Augmentation -Normal: Reflux - None. 2. Femoral Vein: 2.1. Compressibility - Fully compressible: Thrombus - None : Flow - Phasic: Augmentation -Normal: Reflux - None. 3. Popliteal Vein: 3.1. Compressibility - Fully compressible: Thrombus - None : Flow - Phasic: Augmentation -Normal: Reflux - None. 4. Posterior Tibial Vein: 4.1. Compressibility - Fully compressible: Thrombus - None: Flow - Phasic: Augmentation -Normal: Reflux - None. 5. Peroneal Vein: 5.1. Compressibility - Fully compressible: Thrombus - None: Flow - Phasic: Augmentation -Normal: Reflux - None. 6. Great Saphenous Vein: 6.1. Compressibility - Fully compressible: Thrombus - None: Flow - Phasic: Augmentation - Normal: Reflux - None. LEFT: 1. Common Femoral Vein: 1.1. Compressibility - Fully compressible: Thrombus - None: Flow - Phasic: Augmentation -Normal: Reflux - None. 2. Femoral Vein: 2.1. Compressibility - Fully compressible: Thrombus - None: Flow - Phasic: Augmentation -Normal: Reflux - None. 3. Popliteal Vein: 3.1. Compressibility - Fully compressible: Thrombus - None : Flow - Phasic: Augmentation -Normal: Reflux - None. 4. Posterior Tibial Vein: 4.1. Compressibility - Fully compressible: Thrombus - None: Flow - Phasic: Augmentation -Normal: Reflux - None. 5. Peroneal Vein: 5.1. Compressibility - Fully compressible: Thrombus - None: Flow - Phasic: Augmentation -Normal: Reflux - None. 6. Great Saphenous Vein: (lower) 6.1. Compressibility - Fully compressible: Thrombus - None: Flow - Phasic: Augmentation - Normal: Reflux - None. OTHER FINDINGS: Right: None significant. Left: The great saphenous vein was not visualized at thigh level. IMPRESSION: Right: No evidence of deep or superficial vein thrombosis of the right lower extremity. Normal valve function noted of the right side. Left: No evidence of deep or superficial vein thrombosis of the left lower extremity. Normal valve function noted of the left side.
--- NOTE | 2019-01-03 15:35 | CP.PCM.PN ---
Subjective - Date & Time of Evaluation Date of Evaluation: 01/03/19 Time of Evaluation: 15:35 - Subjective Subjective: Patient seen and examined Complains of dizziness Objective - Vital Signs/Intake and Output Vital Signs (last 24 hours): Temp Pulse Resp BP Pulse Ox 98.0 F 85 16 139/82 95 01/03/19 08:00 01/03/19 10:00 01/03/19 08:00 01/03/19 08:00 01/03/19 13:28 Intake and Output: 01/03/19 01/03/19 06:59 18:59 Intake Total 100 300 Output Total 650 125 Balance -550 175 - Medications Medications: Current Medications Amlodipine Besylate (Norvasc) 10 mg PO DAILY [facility] Last Admin: 01/03/19 09:41 Dose: 10 mg Apixaban (Eliquis) 5 mg PO BID [facility] Last Admin: 01/03/19 09:41 Dose: 5 mg Aspirin (Aspirin Chewable) 81 mg PO DAILY [facility] Last Admin: 01/03/19 09:41 Dose: 81 mg Dextrose (Dextrose 50% Inj) 0 ml IV STAT PRN; Protocol PRN Reason: Hypoglycemia Protocol Dextrose (Glutose 15) 0 gm PO ONCE PRN; Protocol PRN Reason: Hypoglycemia Protocol Glimepiride (Amaryl) 4 mg PO DAILY [facility] Last Admin: 01/03/19 09:40 Dose: 4 mg Glucagon (Glucagen Diagnostic Kit) 0 mg IM STAT PRN; Protocol PRN Reason: Hypoglycemia Protocol Home Med (Aspirin/Dipyridamole [Aggrenox 25-200 Mg]) 1 ea PO BID [facility] Hydralazine HCl (Apresoline) 50 mg PO BID [facility] Last Admin: 01/03/19 09:40 Dose: Not Given Hydrochlorothiazide (Hydrodiuril) 25 mg PO DAILY [facility] Last Admin: 01/03/19 09:41 Dose: 25 mg Dextrose (Dextrose 5% In Water 1000 Ml) 1,000 mls @ 0 mls/hr IV .Q0M PRN; Protocol PRN Reason: Hypoglycemia Protocol Insulin Aspart (Novolog) 0 unit SC [facility]; Protocol Last Admin: 01/03/19 12:31 Dose: 3 units Losartan Potassium (Cozaar) 25 mg PO DAILY [facility] Last Admin: 01/03/19 09:41 Dose: 25 mg Metoprolol Succinate (Toprol Xl) 100 mg PO DAILY [facility] Last Admin: 01/03/19 09:41 Dose: 100 mg Rosuvastatin Calcium (Crestor) 10 mg PO HS [facility] Last Admin: 01/02/19 21:41 Dose: 10 mg - Labs Labs: 01/01/19 16:04 01/01/19 16:04 PT 12.2 SECONDS (9.7-12.2) 01/01/19 16:04 INR 1.1 01/01/19 16:04 APTT 70 SECONDS (21-34) H 01/01/19 16:04 - Head Exam Head Exam: NORMAL INSPECTION - Eye Exam Eye Exam: Normal appearance - ENT Exam ENT Exam: Mucous Membranes Moist - Respiratory Exam Respiratory Exam: Clear to Ausculation Bilateral - Cardiovascular Exam Cardiovascular Exam: REGULAR RHYTHM, +S1, +S2 - GI/Abdominal Exam GI & Abdominal Exam: Soft, Normal Bowel Sounds - Extremities Exam Extremities Exam: Pedal Edema - Neurological Exam Neurological Exam: Alert, Oriented x3 Assessment and Plan (1) Dizziness Status: Acute (2) Hypertension Status: Acute (3) Shortness of breath Status: Acute (4) CVA (cerebral vascular accident) Status: Acute (5) CAD (coronary artery disease) of artery bypass graft Status: Chronic (6) Diabetes mellitus Status: Chronic - Assessment and Plan (Free Text) Plan: Patient continues to complain of dizziness Neurology consult as patient has significant history of CVA Cardiology follow-up Accu-Chek Insulin coverage Blood pressure control Medicine consult by Dr. Bruna Seo DVT/GI prophylaxis
[2019-01-03] MEDS ORDERED: Iodixanol 320 MG/ML 100 ML BOTTLE IV ONE (17:06)
[2019-01-03] MEDS ORDERED: Barium Sulfate Susp 2.1% w/v, 2.0% w/w 450 mL Bottle PO ONE (17:06)
[2019-01-03 17:19] LABS: ALB/GLOB RATIO 1.5 (1.0-2.1); ALBUMIN 4.4 g/dL (3.5-5.0); ALT/SGPT 24 U/L (21-72); AST/SGOT 20 U/L (17-59); BLOOD UREA NITROGEN 31 mg/dL (9-20); CALCIUM 9.5 mg/dl (8.6-10.4); GFR NON-AFRICAN AMERICAN 54
[2019-01-03 17:38] LABS: CK-MB 0.33 ng/mL (0.0-3.38)
--- NOTE | 2019-01-03 17:39 | CT ---
Date of service: 01/03/2019 PROCEDURE: CT HEAD WITHOUT CONTRAST. HISTORY: Code stroke COMPARISON: None available. TECHNIQUE: Axial computed tomography images were obtained through the head/brain without intravenous contrast. Radiation dose: Total exam DLP = 1221.61 mGy-cm. This CT exam was performed using one or more of the following dose reduction techniques: Automated exposure control, adjustment of the mA and/or kV according to patient size, and/or use of iterative reconstruction technique. FINDINGS: No acute parenchymal, subarachnoid nor extra-axial hemorrhage. HEMORRHAGE: BRAIN: There are chronic left frontal and left posterior temporoparietal lobes... There is extension of the frontal infarct into the of white matter tracts of the left basal ganglia particularly along the external capsule region. Additionally, mild diffuse/confluent chronic white matter ischemic changes are also present. Scattered chronic bilateral basal nuclei lacunar infarcts also seen. Note that the possibility of a small hyperacute infarct cannot be excluded on this study. Moderate to significant generalized volume loss. There is a small extra-axial calcification right frontal region that could represent a small calcified meningioma. Vascular calcifications both carotid siphons and vertebral arteries. VENTRICLES: No obstructive hydrocephalus CALVARIUM: Unremarkable. PARANASAL SINUSES: Frontal sinuses are hypoplastic. There is mild sclerosis and thickening of the posterolateral wall left maxillary antrum. MASTOID AIR CELLS: Unremarkable as visualized. No inflammatory changes. OTHER FINDINGS: None. IMPRESSION: No acute intracranial hemorrhage. chronic left frontal and left posterior temporoparietal lobes... There is extension of the frontal infarct into the of white matter tracts of the left basal ganglia particularly along the external capsule region. Additionally, mild diffuse/confluent chronic white matter ischemic changes are also present. Scattered chronic bilateral basal nuclei lacunar infarcts also seen. Note that the possibility of a small hyperacute infarct cannot be excluded on this study. Moderate to significant generalized volume loss. There is a small extra-axial calcification right frontal region that could represent a small calcified meningioma. ICU nurse Brittany informed these findings at approximately 5:30 p.m. with written down and read back verification. The
--- NOTE | 2019-01-03 17:42 | CP.PCM.CON ---
<Fred Shankar M - Last Filed: 01/03/19 20:45> History of Present Illness - History of Present Illness History of Present Illness: ICU consult note for Dr. Keyanna Seo. Consult for possible stroke 78 M w/ PMHx HTN, stroke, DM, B/L DVT, CAD, and s/p CABG presents to the ED for evaluation of SOB for 2 days. Patient recently discharged following bilateral ruptured appendicitis and b/l DVT. Patient was non complaint with medication. Patient has no DVT on this admission. Currently patient states he suddenly began to have periorbital numbness/ tingling and slurred speech. was at bedside and confirmed his speech was altered. Patient denies headaches, vision changes, ear, nose, throat pain, chest pain, palpitations, SOB, cough, congestion, abdominal pain, nausea, vomiting, diarrhea, constipation, hematuria, dysuria, abdominal mood swings. PMhx: HTN, stroke, DM, B/L DVT, CAD, and s/p CABG Meds; See EMR Allergies: NKDA PShx: unknown Review of Systems - Review of Systems All systems: reviewed and no additional remarkable complaints except - Constitutional Constitutional: As Per HPI Past Patient History - Infectious Disease Hx of Infectious Diseases: None - Past Medical History & Family History Past Medical History?: Yes - Past Social History Smoking Status: Never Smoked - CARDIAC Hx Hypercholesterolemia: Yes Hx Hypertension: Yes - PULMONARY Hx Bronchitis: Yes - NEUROLOGICAL Hx Neurological Disorder: Yes HX Cerebrovascular Accident: Yes - HEENT Hx HEENT Problems: No - RENAL Hx Chronic Kidney Disease: No - ENDOCRINE/METABOLIC Hx Endocrine Disorders: Yes Hx Diabetes Mellitus Type 2: Yes - HEMATOLOGICAL/ONCOLOGICAL Hx Blood Disorders: Yes Hx Blood Transfusions: Yes Hx Blood Transfusion Reaction: No - INTEGUMENTARY Hx Dermatological Problems: No - MUSCULOSKELETAL/RHEUMATOLOGICAL Hx Arthritis: Yes Hx Falls: No - GASTROINTESTINAL Hx Gastrointestinal Disorders: Yes - GENITOURINARY/GYNECOLOGICAL Hx Genitourinary Disorders: No - PSYCHIATRIC Hx Substance Use: No - SURGICAL HISTORY Hx Appendectomy: Yes (2017) Hx Cholecystectomy: Yes Hx Coronary Artery Bypass Graft: Yes (2011) - ANESTHESIA Hx Anesthesia: Yes Hx Anesthesia Reactions: No Hx Malignant Hyperthermia: No Meds Allergies/Adverse Reactions: Allergies Allergy/AdvReac Type Severity Reaction Status Date / Time No Known Allergies Allergy Verified 01/01/19 15:24 - Medications Medications: Current Medications Amlodipine Besylate (Norvasc) 10 mg PO DAILY [facility] Last Admin: 01/03/19 09:41 Dose: 10 mg Apixaban (Eliquis) 5 mg PO BID [facility] Last Admin: 01/03/19 09:41 Dose: 5 mg Aspirin (Aspirin Chewable) 81 mg PO DAILY [facility] Last Admin: 01/03/19 09:41 Dose: 81 mg Dextrose (Dextrose 50% Inj) 0 ml IV STAT PRN; Protocol PRN Reason: Hypoglycemia Protocol Dextrose (Glutose 15) 0 gm PO ONCE PRN; Protocol PRN Reason: Hypoglycemia Protocol Glimepiride (Amaryl) 4 mg PO DAILY [facility] Last Admin: 01/03/19 09:40 Dose: 4 mg Glucagon (Glucagen Diagnostic Kit) 0 mg IM STAT PRN; Protocol PRN Reason: Hypoglycemia Protocol Home Med (Aspirin/Dipyridamole [Aggrenox 25-200 Mg]) 1 ea PO BID [facility] Hydralazine HCl (Apresoline) 50 mg PO BID [facility] Last Admin: 01/03/19 09:40 Dose: Not Given Hydrochlorothiazide (Hydrodiuril) 25 mg PO DAILY [facility] Last Admin: 01/03/19 09:41 Dose: 25 mg Dextrose (Dextrose 5% In Water 1000 Ml) 1,000 mls @ 0 mls/hr IV .Q0M PRN; Protocol PRN Reason: Hypoglycemia Protocol Insulin Aspart (Novolog) 0 unit SC [facility]; Protocol Last Admin: 01/03/19 12:31 Dose: 3 units Losartan Potassium (Cozaar) 25 mg PO DAILY [facility] Last Admin: 01/03/19 09:41 Dose: 25 mg Metoprolol Succinate (Toprol Xl) 100 mg PO DAILY [facility] Last Admin: 01/03/19 09:41 Dose: 100 mg Rosuvastatin Calcium (Crestor) 10 mg PO HS [facility] Last Admin: 01/02/19 21:41 Dose: 10 mg Physical Exam - Constitutional Appears: Non-toxic, No Acute Distress - Head Exam Head Exam: ATRAUMATIC, NORMAL INSPECTION - Eye Exam Eye Exam: EOMI, Normal appearance - ENT Exam ENT Exam: Mucous Membranes Moist - Neck Exam Neck exam: Positive for: Normal Inspection - Respiratory Exam Respiratory Exam: Clear to Auscultation Bilateral, NORMAL BREATHING PATTERN. absent: Rhonchi, Wheezes - Cardiovascular Exam Cardiovascular Exam: +S1, +S2. absent: Systolic Murmur - GI/Abdominal Exam GI & Abdominal Exam: Normal Bowel Sounds, Soft - Extremities Exam Extremities exam: Positive for: normal inspection. Negative for: calf tenderne ss, full ROM, pedal edema - Neurological Exam Neurological exam: Alert, Oriented x3 (normal 2 word recal, no motor drift in extremites, 5/5 motor strength, no facial asymetry ) - Expanded Neurological Exam Expanded Patient oriented to: person, place, time - Psychiatric Exam Psychiatric exam: Normal Affect, Normal Mood - Skin Skin Exam: Normal Color, Warm Results - Vital Signs Recent Vital Signs: Last Vital Signs Temp 98.0 F 01/03/19 08:00 Pulse 85 01/03/19 10:00 Resp 16 01/03/19 08:00 BP 139/82 01/03/19 08:00 Pulse Ox 95 01/03/19 13:28 - Labs Result Diagrams: 01/01/19 16:04 01/03/19 17:05 Labs: Laboratory Results - last 24 hr 01/02/19 01/03/19 01/03/19 20:49 07:29 11:32 Sodium Potassium Chloride Carbon Dioxide Anion Gap BUN Creatinine Est GFR ( Amer) Est GFR (Non-Af Amer) POC Glucose (mg/dL) 158 H 143 H 225 H Random Glucose Calcium Phosphorus Magnesium Total Bilirubin AST ALT Alkaline Phosphatase CK-MB (Mass) Troponin I Total Protein Albumin Globulin Albumin/Globulin Ratio 01/03/19 01/03/19 01/03/19 16:09 17:00 17:05 Sodium 138 Potassium 4.7 Chloride 97 L Carbon Dioxide 29 Anion Gap 16 BUN 31 H Creatinine 1.3 Est GFR ( Amer) > 60 Est GFR (Non-Af Amer) 54 POC Glucose (mg/dL) 157 H 164 H Random Glucose 168 H D Calcium 9.5 Phosphorus 4.7 H Magnesium 1.7 Total Bilirubin 0.9 AST 20 ALT 24 Alkaline Phosphatase 65 CK-MB (Mass) Troponin I Total Protein 7.3 Albumin 4.4 Globulin 2.9 Albumin/Globulin Ratio 1.5 01/03/19 17:16 Sodium Potassium Chloride Carbon Dioxide Anion Gap BUN Creatinine Est GFR ( Amer) Est GFR (Non-Af Amer) POC Glucose (mg/dL) Random Glucose Calcium Phosphorus Magnesium Total Bilirubin AST ALT Alkaline Phosphatase CK-MB (Mass) 0.33 Troponin I < 0.0120 Total Protein Albumin Globulin Albumin/Globulin Ratio Assessment & Plan - Assessment and Plan (Free Text) Assessment: 78M admited for SOB, recent hx of DVT (non compliance), consulted for slurred speech, code stroke called at 4:57PM. NIHSS score of 1. Patient currently on eliquis, CT shows chronic infarcts. Spoke with neurologist Dr. Alcocer, patient currently not a tPA candidate due to current eliquis use. Patient stable for telemetry. 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 Alcocer - Not a tPA candidate 2/2 to eliquis use Cardio - Hx of cabg, c/w current meds: ASA, statin - Hx of HTN, c/w BP meds metoprolol 100 PO daily, HCTZ 25 mg Po daily, Losartan 25 PO daily, amlodipine 10 mg PO daily - Hydralizine 50 BID held for permissive HTN - Echo 10/29: EF 61%, normal LVF, no PFO noted - EKG: NSR @ 76 bpm Pulm - CT chest 01/01: No PE - Vitals WNL, O2 Saturation WNL GI: - slurred speech, improving - able to tolerate oral secretions - C/w heart healthy : - no catheter needed at current time Renal: - BUN/Cr: 31/1.3 - replenish lytes as necessary Endo: - hx of diabetes - C/w glimepiride 4mg PO daily PPx: - GI: per primary - DVT: currently on eliquis <Ludy Seo M - Last Filed: 01/04/19 10:24> Meds - Medications Medications: Current Medications Amlodipine Besylate (Norvasc) 10 mg PO DAILY [facility] Last Admin: 01/04/19 09:53 Dose: 10 mg Apixaban (Eliquis) 5 mg PO BID [facility] Last Admin: 01/04/19 09:54 Dose: 5 mg Aspirin (Aspirin Chewable) 81 mg PO DAILY [facility] Last Admin: 01/04/19 09:54 Dose: 81 mg Dextrose (Dextrose 50% Inj) 0 ml IV STAT PRN; Protocol PRN Reason: Hypoglycemia Protocol Dextrose (Glutose 15) 0 gm PO ONCE PRN; Protocol PRN Reason: Hypoglycemia Protocol Glimepiride (Amaryl) 4 mg PO DAILY [facility] Last Admin: 01/04/19 09:53 Dose: 4 mg Glucagon (Glucagen Diagnostic Kit) 0 mg IM STAT PRN; Protocol PRN Reason: Hypoglycemia Protocol Home Med (Aspirin/Dipyridamole [Aggrenox 25-200 Mg]) 1 ea PO BID [facility] Hydrochlorothiazide (Hydrodiuril) 25 mg PO DAILY [facility] Last Admin: 01/04/19 09:57 Dose: 25 mg Dextrose (Dextrose 5% In Water 1000 Ml) 1,000 mls @ 0 mls/hr IV .Q0M PRN; Protocol PRN Reason: Hypoglycemia Protocol Sodium Chloride (Sodium Chloride 0.9%) 1,000 mls @ 75 mls/hr IV .[id number] [facility] Last Admin: 01/04/19 08:14 Dose: 75 mls/hr Insulin Aspart (Novolog) 0 unit SC [facility]; Protocol Last Admin: 01/04/19 08:37 Dose: 2 units Losartan Potassium (Cozaar) 25 mg PO DAILY [facility] Last Admin: 01/04/19 09:55 Dose: 25 mg Metoprolol Succinate (Toprol Xl) 100 mg PO DAILY [facility] Last Admin: 01/04/19 10:06 Dose: 100 mg Rosuvastatin Calcium (Crestor) 10 mg PO HS [facility] Last Admin: 01/03/19 23:05 Dose: 10 mg Results - Vital Signs Recent Vital Signs: Last Vital Signs Temp 98 F 01/04/19 08:00 Pulse 81 01/04/19 10:00 Resp 20 01/04/19 08:00 BP 148/78 01/04/19 08:00 Pulse Ox 99 01/04/19 08:00 - Labs Result Diagrams: 01/01/19 16:04 01/03/19 17:05 Labs: Laboratory Results - last 24 hr 01/03/19 01/03/19 01/03/19 11:32 16:09 17:00 Sodium Potassium Chloride Carbon Dioxide Anion Gap BUN Creatinine Est GFR ( Amer) Est GFR (Non-Af Amer) POC Glucose (mg/dL) 225 H 157 H 164 H Random Glucose Calcium Phosphorus Magnesium Total Bilirubin AST ALT Alkaline Phosphatase Total Creatine Kinase CK-MB (Mass) Troponin I Total Protein Albumin Globulin Albumin/Globulin Ratio 01/03/19 01/03/19 01/03/19 17:05 17:16 21:50 Sodium 138 Potassium 4.7 Chloride 97 L Carbon Dioxide 29 Anion Gap 16 BUN 31 H Creatinine 1.3 Est GFR ( Amer) > 60 Est GFR (Non-Af Amer) 54 POC Glucose (mg/dL) 168 H Random Glucose 168 H D Calcium 9.5 Phosphorus 4.7 H Magnesium 1.7 Total Bilirubin 0.9 AST 20 ALT 24 Alkaline Phosphatase 65 Total Creatine Kinase 22 L CK-MB (Mass) 0.33 Troponin I < 0.0120 Total Protein 7.3 Albumin 4.4 Globulin 2.9 Albumin/Globulin Ratio 1.5 01/04/19 08:24 Sodium Potassium Chloride Carbon Dioxide Anion Gap BUN Creatinine Est GFR ( Amer) Est GFR (Non-Af Amer) POC Glucose (mg/dL) 158 H Random Glucose Calcium Phosphorus Magnesium Total Bilirubin AST ALT Alkaline Phosphatase Total Creatine Kinase CK-MB (Mass) Troponin I Total Protein Albumin Globulin Albumin/Globulin Ratio Assessment & Plan - Assessment and Plan (Free Text) Plan: ICU at bedside when patient developed slurred speach. -Patient already on oral eliquis and antiplatelet -obtain CT head/CTbrain angio -neurology consult -code stroke -Patient given 1000 ml of NS -Patient's Slurred speach improved after comming back from CT head -continue treatement as per neurology -currently not a candidate for tPA (risk of ICH more than benefit from neurological recovery -allow permissive hypertension -continue to monitor patient under telemetry -above management d/w neurology team -NIH Scale ranging from 3-2, over period of 2 hours, patient's clinical symptoms resolved and had baseline neurological status without any deficit after CT head - Date & Time Date: 01/03/19 Time: 22:00
[2019-01-03] MEDS ORDERED: Sodium Chloride 0.9% 1,000 ML IV ONE (17:49)
--- NOTE | 2019-01-03 18:08 | CT ---
Date of service: 01/03/2019 PROCEDURE: CT Angiography of the neck with contrast HISTORY: Slurred speech COMPARISON: And brain comparison made with concurrent noncontrast CT scan brain TECHNIQUE: Contiguous axial images of the neck were obtained from the level of the vertex of the skull to the superior mediastinum in the arteriographic phase of enhancement. Coronal and sagittal reformats or also generated. IV contrast dose: Radiation dose: Total exam DLP = 766.14 mGy-cm. This CT exam was performed using one or more of the following dose reduction techniques: Automated exposure control, adjustment of the mA and/or kV according to patient size, and/or use of iterative reconstruction technique. FINDINGS: There are mild to moderate partially calcified atherosclerotic plaque changes seen along the thoracic aorta however aorta is patent. Calcified plaque also seen at the origins of the brachiocephalic left common carotid and left subclavian arteries.. No evidence of occlusion or dissection common carotid arteries or internal carotid arteries. Partially calcified atherosclerotic plaque seen at the distal common carotid arteries, carotid bifurcations which extends into the proximal internal carotid arteries. There minor narrowing at the common carotid artery however slightly more significant narrowing along the proximal internal carotid artery estimated at approximately 65%. Similar partially calcified atherosclerotic plaque seen at the distal left common carotid artery extending into the carotid bifurcation and proximal left internal carotid artery. There narrowing of the left common carotid artery/internal carotid artery junction estimated at approximately 70%. The distal internal carotid arteries including the petrous cavernous and supraclinoid segments also patent however there does appear to be fairly significant calcified atherosclerotic plaque at the level of both carotid siphons associated with moderate to fairly significant narrowing right greater than left. Both vertebral arteries are patent throughout left-sided which is slightly more dominant than the right. There mild to moderate calcified plaque changes on distal internal carotid arteries (proximal intradural segments more so on the right side with moderate to fairly significant narrowing. The visualized major branches of the [id number] are patent. Distal branches of the anterior middle and posterior cerebral arteries are also patent. No evidence of large aneurysm nor vascular malformation. OTHER FINDINGS: Multilevel degenerative spondylosis of the cervical spine. IMPRESSION: There is stenosis of the right internal carotid artery estimated at approximately 65 % and stenosis of the left carotid bifurcation/ICA junction estimated at approximately 70%. There is also significant stenosis of moderate to significant stenosis of both carotid siphons and distal vertebral arteries (proximal intradural segments). No evidence of occlusion of the intra cerebral vasculature as above. No evidence of large aneurysm nor vascular malformation.
[2019-01-03] MEDS: Sodium Chloride 0.9% 1,000 ML IV SCH (18:17)
[2019-01-04] MEDS: Sodium Chloride 0.9% 1,000 ML IV SCH (08:14)
[2019-01-04] MEDS: (Novolog) Insulin Aspart, Recombinant 100 u/ml 10 ml vial SC SCH ×5 (08:14→21:28)
[2019-01-04] MEDS: Metoprolol Succinate 100 mg XL Tab PO SCH (10:06)
--- NOTE | 2019-01-04 12:14 | CP.PCM.CON ---
History of Present Illness - History of Present Illness History of Present Illness: neurology consult dictated. IN brief, patient is a 78 yr old male with htn, dm, dvt, on eloquiss, who yesterday at 457 had a discrete episode of slurred speech. Code stroke was called, ct head negative, and symptoms resolved. Therefore he was not considered to be a TPA candidate. He has not had any repeat spells since yesterday. Plan: 1. continue eloquiss 2. MRi Brain sunday OUr team will follow Thank you Dr. Alcocer Past Patient History - Infectious Disease Hx of Infectious Diseases: None - Past Medical History & Family History Past Medical History?: Yes - Past Social History Smoking Status: Never Smoked - CARDIAC Hx Hypercholesterolemia: Yes Hx Hypertension: Yes - PULMONARY Hx Bronchitis: Yes - NEUROLOGICAL Hx Neurological Disorder: Yes HX Cerebrovascular Accident: Yes - HEENT Hx HEENT Problems: No - RENAL Hx Chronic Kidney Disease: No - ENDOCRINE/METABOLIC Hx Endocrine Disorders: Yes Hx Diabetes Mellitus Type 2: Yes - HEMATOLOGICAL/ONCOLOGICAL Hx Blood Disorders: Yes Hx Blood Transfusions: Yes Hx Blood Transfusion Reaction: No - INTEGUMENTARY Hx Dermatological Problems: No - MUSCULOSKELETAL/RHEUMATOLOGICAL Hx Arthritis: Yes Hx Falls: No - GASTROINTESTINAL Hx Gastrointestinal Disorders: Yes - GENITOURINARY/GYNECOLOGICAL Hx Genitourinary Disorders: No - PSYCHIATRIC Hx Substance Use: No - SURGICAL HISTORY Hx Appendectomy: Yes (2017) Hx Cholecystectomy: Yes Hx Coronary Artery Bypass Graft: Yes (2011) - ANESTHESIA Hx Anesthesia: Yes Hx Anesthesia Reactions: No Hx Malignant Hyperthermia: No Meds Allergies/Adverse Reactions: Allergies Allergy/AdvReac Type Severity Reaction Status Date / Time No Known Allergies Allergy Verified 01/01/19 15:24 - Medications Medications: Current Medications Amlodipine Besylate (Norvasc) 10 mg PO DAILY [facility] Last Admin: 01/04/19 09:53 Dose: 10 mg Apixaban (Eliquis) 5 mg PO BID [facility] Last Admin: 01/04/19 09:54 Dose: 5 mg Aspirin (Aspirin Chewable) 81 mg PO DAILY [facility] Last Admin: 01/04/19 09:54 Dose: 81 mg Dextrose (Dextrose 50% Inj) 0 ml IV STAT PRN; Protocol PRN Reason: Hypoglycemia Protocol Dextrose (Glutose 15) 0 gm PO ONCE PRN; Protocol PRN Reason: Hypoglycemia Protocol Glimepiride (Amaryl) 4 mg PO DAILY [facility] Last Admin: 01/04/19 09:53 Dose: 4 mg Glucagon (Glucagen Diagnostic Kit) 0 mg IM STAT PRN; Protocol PRN Reason: Hypoglycemia Protocol Home Med (Aspirin/Dipyridamole [Aggrenox 25-200 Mg]) 1 ea PO BID [facility] Hydrochlorothiazide (Hydrodiuril) 25 mg PO DAILY [facility] Last Admin: 01/04/19 09:57 Dose: 25 mg Dextrose (Dextrose 5% In Water 1000 Ml) 1,000 mls @ 0 mls/hr IV .Q0M PRN; Protocol PRN Reason: Hypoglycemia Protocol Sodium Chloride (Sodium Chloride 0.9%) 1,000 mls @ 75 mls/hr IV .[id number] [facility] Last Admin: 01/04/19 08:14 Dose: 75 mls/hr Insulin Aspart (Novolog) 0 unit SC ACHS [facility]; Protocol Last Admin: 01/04/19 08:37 Dose: 2 units Losartan Potassium (Cozaar) 25 mg PO DAILY [facility] Last Admin: 01/04/19 09:55 Dose: 25 mg Metoprolol Succinate (Toprol Xl) 100 mg PO DAILY [facility] Last Admin: 01/04/19 10:06 Dose: 100 mg Rosuvastatin Calcium (Crestor) 10 mg PO HS [facility] Last Admin: 01/03/19 23:05 Dose: 10 mg Results - Vital Signs Recent Vital Signs: Last Vital Signs Temp 98 F 01/04/19 08:00 Pulse 81 01/04/19 10:00 Resp 20 01/04/19 08:00 BP 148/78 01/04/19 08:00 Pulse Ox 99 01/04/19 08:00 - Labs Result Diagrams: 01/01/19 16:04 01/03/19 17:05 Labs: Laboratory Results - last 24 hr 01/03/19 01/03/19 01/03/19 16:09 17:00 17:05 Sodium 138 Potassium 4.7 Chloride 97 L Carbon Dioxide 29 Anion Gap 16 BUN 31 H Creatinine 1.3 Est GFR ( Amer) > 60 Est GFR (Non-Af Amer) 54 POC Glucose (mg/dL) 157 H 164 H Random Glucose 168 H D Calcium 9.5 Phosphorus 4.7 H Magnesium 1.7 Total Bilirubin 0.9 AST 20 ALT 24 Alkaline Phosphatase 65 Total Creatine Kinase CK-MB (Mass) Troponin I Total Protein 7.3 Albumin 4.4 Globulin 2.9 Albumin/Globulin Ratio 1.5 01/03/19 01/03/19 01/04/19 17:16 21:50 08:24 Sodium Potassium Chloride Carbon Dioxide Anion Gap BUN Creatinine Est GFR ( Amer) Est GFR (Non-Af Amer) POC Glucose (mg/dL) 168 H 158 H Random Glucose Calcium Phosphorus Magnesium Total Bilirubin AST ALT Alkaline Phosphatase Total Creatine Kinase 22 L CK-MB (Mass) 0.33 Troponin I < 0.0120 Total Protein Albumin Globulin Albumin/Globulin Ratio 01/04/19 11:46 Sodium Potassium Chloride Carbon Dioxide Anion Gap BUN Creatinine Est GFR ( Amer) Est GFR (Non-Af Amer) POC Glucose (mg/dL) 181 H Random Glucose Calcium Phosphorus Magnesium Total Bilirubin AST ALT Alkaline Phosphatase Total Creatine Kinase CK-MB (Mass) Troponin I Total Protein Albumin Globulin Albumin/Globulin Ratio
--- NOTE | 2019-01-04 16:42 | CP.PCM.PN ---
Subjective - Date & Time of Evaluation Date of Evaluation: 01/04/19 Time of Evaluation: 16:42 - Subjective Subjective: Patient is seen and examined Overnight events noted Objective - Vital Signs/Intake and Output Vital Signs (last 24 hours): Temp Pulse Resp BP Pulse Ox 98 F 88 20 137/82 99 01/04/19 14:41 01/04/19 14:41 01/04/19 14:41 01/04/19 14:41 01/04/19 14:41 Intake and Output: 01/04/19 01/04/19 06:59 18:59 Intake Total 700 480 Output Total 950 250 Balance -250 230 - Medications Medications: Current Medications Amlodipine Besylate (Norvasc) 10 mg PO DAILY [facility] Last Admin: 01/04/19 09:53 Dose: 10 mg Apixaban (Eliquis) 5 mg PO BID [facility] Last Admin: 01/04/19 09:54 Dose: 5 mg Aspirin (Aspirin Chewable) 81 mg PO DAILY [facility] Last Admin: 01/04/19 09:54 Dose: 81 mg Clopidogrel Bisulfate (Plavix) 75 mg PO DAILY [facility] Dextrose (Dextrose 50% Inj) 0 ml IV STAT PRN; Protocol PRN Reason: Hypoglycemia Protocol Dextrose (Glutose 15) 0 gm PO ONCE PRN; Protocol PRN Reason: Hypoglycemia Protocol Glimepiride (Amaryl) 4 mg PO DAILY [facility] Last Admin: 01/04/19 09:53 Dose: 4 mg Glucagon (Glucagen Diagnostic Kit) 0 mg IM STAT PRN; Protocol PRN Reason: Hypoglycemia Protocol Home Med (Aspirin/Dipyridamole [Aggrenox 25-200 Mg]) 1 ea PO BID [facility] Hydrochlorothiazide (Hydrodiuril) 25 mg PO DAILY [facility] Last Admin: 01/04/19 09:57 Dose: 25 mg Dextrose (Dextrose 5% In Water 1000 Ml) 1,000 mls @ 0 mls/hr IV .Q0M PRN; Protocol PRN Reason: Hypoglycemia Protocol Insulin Aspart (Novolog) 0 unit SC ACHS [facility]; Protocol Last Admin: 01/04/19 16:38 Dose: 2 units Losartan Potassium (Cozaar) 25 mg PO DAILY [facility] Last Admin: 01/04/19 09:55 Dose: 25 mg Metoprolol Succinate (Toprol Xl) 100 mg PO DAILY [facility] Last Admin: 01/04/19 10:06 Dose: 100 mg Rosuvastatin Calcium (Crestor) 10 mg PO HS [facility] Last Admin: 01/03/19 23:05 Dose: 10 mg - Labs Labs: 01/01/19 16:04 01/03/19 17:05 PT 12.2 SECONDS (9.7-12.2) 01/01/19 16:04 INR 1.1 01/01/19 16:04 APTT 70 SECONDS (21-34) H 01/01/19 16:04 - Head Exam Head Exam: NORMAL INSPECTION - Eye Exam Eye Exam: Normal appearance - ENT Exam ENT Exam: Mucous Membranes Moist - Respiratory Exam Respiratory Exam: Clear to Ausculation Bilateral - Cardiovascular Exam Cardiovascular Exam: REGULAR RHYTHM, +S1, +S2 - GI/Abdominal Exam GI & Abdominal Exam: Soft, Normal Bowel Sounds - Extremities Exam Extremities Exam: Normal Inspection Assessment and Plan (1) Dizziness Status: Acute (2) Hypertension Status: Acute (3) Shortness of breath Status: Acute (4) CVA (cerebral vascular accident) Status: Acute (5) CAD (coronary artery disease) of artery bypass graft Status: Chronic (6) Diabetes mellitus Status: Chronic - Assessment and Plan (Free Text) Plan: CVA workup in progress Accu-Chek Insulin coverage Blood pressure control Neurochecks DVT/GI prophylaxis
[2019-01-05] MEDS: (Novolog) Insulin Aspart, Recombinant 100 u/ml 10 ml vial SC SCH ×4 (08:17→22:16)
[2019-01-05] MEDS: Metoprolol Succinate 100 mg XL Tab PO SCH (09:48)
--- NOTE | 2019-01-05 10:37 | CP.PCM.PN ---
Subjective - Date & Time of Evaluation Date of Evaluation: 01/05/19 Time of Evaluation: 10:35 - Subjective Subjective: Sitting in chair. No new episode of chest pain. Have some SOB. Objective - Vital Signs/Intake and Output Vital Signs (last 24 hours): Temp Pulse Resp BP Pulse Ox 98.6 F 82 18 157/85 H 100 01/05/19 08:00 01/05/19 08:23 01/05/19 08:00 01/05/19 04:00 01/05/19 08:00 Intake and Output: 01/05/19 01/05/19 06:59 18:59 Intake Total 450 0 Output Total 1000 Balance -550 0 - Medications Medications: Current Medications Amlodipine Besylate (Norvasc) 10 mg PO DAILY [facility] Last Admin: 01/05/19 09:48 Dose: 10 mg Apixaban (Eliquis) 5 mg PO BID [facility] Last Admin: 01/05/19 09:47 Dose: 5 mg Aspirin (Aspirin Chewable) 81 mg PO DAILY [facility] Last Admin: 01/05/19 09:47 Dose: 81 mg Clopidogrel Bisulfate (Plavix) 75 mg PO DAILY [facility] Last Admin: 01/05/19 09:47 Dose: 75 mg Dextrose (Dextrose 50% Inj) 0 ml IV STAT PRN; Protocol PRN Reason: Hypoglycemia Protocol Dextrose (Glutose 15) 0 gm PO ONCE PRN; Protocol PRN Reason: Hypoglycemia Protocol Glimepiride (Amaryl) 4 mg PO DAILY [facility] Last Admin: 01/05/19 09:47 Dose: 4 mg Glucagon (Glucagen Diagnostic Kit) 0 mg IM STAT PRN; Protocol PRN Reason: Hypoglycemia Protocol Home Med (Aspirin/Dipyridamole [Aggrenox 25-200 Mg]) 1 ea PO BID [facility] Hydrochlorothiazide (Hydrodiuril) 25 mg PO DAILY [facility] Last Admin: 01/05/19 09:47 Dose: 25 mg Insulin Aspart (Novolog) 0 unit SC [facility]; Protocol Last Admin: 01/05/19 08:17 Dose: Not Given Losartan Potassium (Cozaar) 25 mg PO DAILY [facility] Last Admin: 01/05/19 09:48 Dose: 25 mg Metoprolol Succinate (Toprol Xl) 100 mg PO DAILY [facility] Last Admin: 01/05/19 09:48 Dose: 100 mg Rosuvastatin Calcium (Crestor) 10 mg PO HS [facility] Last Admin: 02/23/19 22:14 Dose: 10 mg - Labs Labs: 01/01/19 16:04 01/03/19 17:05 PT 12.2 SECONDS (9.7-12.2) 01/01/19 16:04 INR 1.1 01/01/19 16:04 APTT 70 SECONDS (21-34) H 01/01/19 16:04 - Head Exam Head Exam: NORMOCEPHALIC - Neck Exam Neck Exam: Normal Inspection - Respiratory Exam Respiratory Exam: NORMAL BREATHING PATTERN - Cardiovascular Exam Cardiovascular Exam: REGULAR RHYTHM - Extremities Exam Extremities Exam: Normal Inspection - Neurological Exam Neurological Exam: Alert, Oriented x3 Assessment and Plan (1) Chest pain Assessment & Plan: Resolved, Plans for cardiac cath in AM. Discussed with patient. He agrees with plans. NPO after mid night except meds. Status: Acute (2) CAD (coronary artery disease) of artery bypass graft Assessment & Plan: CABG, review old films. Continue current care. Status: Chronic
--- NOTE | 2019-01-05 19:53 | CP.PCM.PN ---
Subjective - Date & Time of Evaluation Date of Evaluation: 01/05/19 Time of Evaluation: 19:52 - Subjective Subjective: Patient seen and examined No events overnight Objective - Vital Signs/Intake and Output Vital Signs (last 24 hours): Temp Pulse Resp BP Pulse Ox 98.0 F 69 19 139/71 98 01/05/19 16:00 01/05/19 16:45 01/05/19 16:00 01/05/19 16:00 01/05/19 16:00 Intake and Output: 01/05/19 01/06/19 18:59 06:59 Intake Total 0 Balance 0 - Medications Medications: Current Medications Amlodipine Besylate (Norvasc) 10 mg PO DAILY [facility] Last Admin: 01/05/19 09:48 Dose: 10 mg Apixaban (Eliquis) 5 mg PO BID [facility] Last Admin: 01/05/19 17:06 Dose: 5 mg Aspirin (Aspirin Chewable) 81 mg PO DAILY [facility] Last Admin: 01/05/19 09:47 Dose: 81 mg Clopidogrel Bisulfate (Plavix) 75 mg PO DAILY [facility] Last Admin: 01/05/19 09:47 Dose: 75 mg Dextrose (Dextrose 50% Inj) 0 ml IV STAT PRN; Protocol PRN Reason: Hypoglycemia Protocol Dextrose (Glutose 15) 0 gm PO ONCE PRN; Protocol PRN Reason: Hypoglycemia Protocol Glimepiride (Amaryl) 4 mg PO DAILY [facility] Last Admin: 01/05/19 09:47 Dose: 4 mg Glucagon (Glucagen Diagnostic Kit) 0 mg IM STAT PRN; Protocol PRN Reason: Hypoglycemia Protocol Home Med (Aspirin/Dipyridamole [Aggrenox 25-200 Mg]) 1 ea PO BID [facility] Hydrochlorothiazide (Hydrodiuril) 25 mg PO DAILY [facility] Last Admin: 01/05/19 09:47 Dose: 25 mg Insulin Aspart (Novolog) 0 unit SC ACHS [facility]; Protocol Last Admin: 01/05/19 17:06 Dose: 2 units Losartan Potassium (Cozaar) 25 mg PO DAILY [facility] Last Admin: 01/05/19 09:48 Dose: 25 mg Metoprolol Succinate (Toprol Xl) 100 mg PO DAILY [facility] Last Admin: 01/05/19 09:48 Dose: 100 mg Rosuvastatin Calcium (Crestor) 10 mg PO [facility] Last Admin: 01/04/19 22:14 Dose: 10 mg - Labs Labs: 01/01/19 16:04 01/03/19 17:05 PT 12.2 SECONDS (9.7-12.2) 01/01/19 16:04 INR 1.1 01/01/19 16:04 APTT 70 SECONDS (21-34) H 01/01/19 16:04 - Head Exam Head Exam: NORMAL INSPECTION - Eye Exam Eye Exam: Normal appearance - ENT Exam ENT Exam: Mucous Membranes Moist - Respiratory Exam Respiratory Exam: Clear to Ausculation Bilateral - Cardiovascular Exam Cardiovascular Exam: REGULAR RHYTHM, +S1, +S2 - GI/Abdominal Exam GI & Abdominal Exam: Soft, Normal Bowel Sounds - Extremities Exam Extremities Exam: Normal Inspection Assessment and Plan (1) Dizziness Status: Acute (2) Hypertension Status: Acute (3) Shortness of breath Status: Acute (4) CVA (cerebral vascular accident) Status: Acute (5) CAD (coronary artery disease) of artery bypass graft Status: Chronic (6) Diabetes mellitus Status: Chronic - Assessment and Plan (Free Text) Plan: Neurology follow-up Neurochecks Accu-Chek Insulin coverage Blood pressure control DVT/GI prophylaxis
[2019-01-06 06:50] LABS: INR 1.4; PROTHROMBIN TIME 15.2 SECONDS (9.7-12.2)
[2019-01-06] MEDS: (Novolog) Insulin Aspart, Recombinant 100 u/ml 10 ml vial SC SCH ×4 (07:49→22:06)
--- NOTE | 2019-01-06 09:43 | CON ---
DATE: 01/04/2019 Neurology consult called by Dr. Madison. HISTORY OF PRESENT ILLNESS: Mr. Hernández is a 78-year-old male who was a code stroke yesterday at approximately 04:57 and was deemed not to be a tPA candidate because his symptoms resolved. Mr. Hernández is a 78-year-old male with past medical history of hypertension, diabetes, DVT, CAD, and status post CABG. He was admitted on 01/02/2019 because he was short of breath for 2 days, worsening with lying flat. The patient noticed that he had some symptoms of paroxysmal nocturnal dyspnea and had to prop himself upon two pillows. His noticed that he had witnessed apneas as well. Of note, he is obese with dry cough. In the last one month, he was admitted for ruptured appendicitis, renal insufficiency and at that time, he was noted to have bilateral DVTs for which he was started on Eliquis. Yesterday at 04:57 p.m., the patient was visiting with his when she noticed that he had sudden onset of dysarthria and confusion that lasted for several minutes. He was taken to CAT scan immediately, code stroke was called, and CAT scan was found to be negative. When he returned to the ICU, the patient did not have any further symptoms. No weakness. No dysarthria. No aphasia. No facial droop. This morning, he also has an NIH stroke scale of 0. On my exam, he was able to speak to me, follow commands and tell me history. He did not have any recurrence of his symptoms overnight. REVIEW OF SYSTEMS: No headache. No nausea. No vomiting. No diarrhea. PAST MEDICAL HISTORY: As above. PAST SURGICAL HISTORY: As above. SOCIAL HISTORY: , has several children. No tobacco. No alcohol. ALLERGIES: NO KNOWN DRUG ALLERGIES. PHYSICAL EXAMINATION: NEUROLOGIC: The patient is alert, awake, and oriented x3. Pupils are equal, round, and reactive to light. Cranial nerves II through XII are normal. Speech is fluent, he can name and repeat. Motor tone is normal. Strength is 5/5 upper and lower limb bilaterally. Sensory is intact to fine touch, pain, position sense. Gait was not tested, the patient refused. Reflexes are +2 upper and lower limb bilaterally. Toes are downgoing. There is no clonus. There are also no abnormal cerebellar signs. MEDICATIONS AT HOME: Norvasc, Eliquis, hydralazine, insulin, and metoprolol. LABORATORY DATA: Labs are as follows, white count 10.1, hemoglobin 12.4, hematocrit 37.4, and platelets 195. Sodium 138, potassium 5.1, bicarb 103, chloride 28, BUN 33, and creatinine 1.3. Glucose 216. IMPRESSION AND PLAN: This is a 78-year-old male with most likely transient ischemic attack. CT of the head and neck was done, it was normal as well. We will monitor the patient. Continue with Eliquis, not aspirin, maintain his blood pressure and follow him closely. I would recommend an echocardiogram as well as soon as possible. Thank you for this interesting consult, our team will follow. Lei Alcocer MD MTDD
[2019-01-06] MEDS: Metoprolol Succinate 100 mg XL Tab PO SCH (10:24)
--- NOTE | 2019-01-06 10:31 | CP.PCM.PN ---
Subjective - Date & Time of Evaluation Date of Evaluation: 01/06/19 Time of Evaluation: 10:31 - Subjective Subjective: No new complaints. Awaiting for cardiac cath. Objective - Vital Signs/Intake and Output Vital Signs (last 24 hours): Temp Pulse Resp BP Pulse Ox 97.9 F 77 19 130/74 98 01/06/19 07:25 01/06/19 07:34 01/06/19 07:25 01/06/19 07:25 01/06/19 07:25 Intake and Output: 01/06/19 01/06/19 06:59 18:59 Intake Total 350 0 Output Total 600 Balance -250 0 - Medications Medications: Current Medications Amlodipine Besylate (Norvasc) 10 mg PO DAILY [facility] Last Admin: 01/06/19 10:24 Dose: Not Given Apixaban (Eliquis) 5 mg PO BID [facility] Last Admin: 01/06/19 10:24 Dose: Not Given Aspirin (Aspirin Chewable) 81 mg PO DAILY [facility] Last Admin: 01/06/19 10:23 Dose: Not Given Clopidogrel Bisulfate (Plavix) 75 mg PO DAILY [facility] Last Admin: 01/06/19 10:24 Dose: Not Given Dextrose (Dextrose 50% Inj) 0 ml IV STAT PRN; Protocol PRN Reason: Hypoglycemia Protocol Dextrose (Glutose 15) 0 gm PO ONCE PRN; Protocol PRN Reason: Hypoglycemia Protocol Glimepiride (Amaryl) 4 mg PO DAILY [facility] Last Admin: 01/06/19 10:23 Dose: Not Given Glucagon (Glucagen Diagnostic Kit) 0 mg IM STAT PRN; Protocol PRN Reason: Hypoglycemia Protocol Home Med (Aspirin/Dipyridamole [Aggrenox 25-200 Mg]) 1 ea PO BID [facility] Hydrochlorothiazide (Hydrodiuril) 25 mg PO DAILY [facility] Last Admin: 01/06/19 10:24 Dose: Not Given Insulin Aspart (Novolog) 0 unit SC [facility]; Protocol Last Admin: 01/06/19 07:49 Dose: Not Given Losartan Potassium (Cozaar) 25 mg PO DAILY [facility] Last Admin: 01/06/19 10:23 Dose: Not Given Metoprolol Succinate (Toprol Xl) 100 mg PO DAILY [facility] Last Admin: 01/06/19 10:24 Dose: Not Given Rosuvastatin Calcium (Crestor) 10 mg PO HS [facility] Last Admin: 01/05/19 21:05 Dose: 10 mg - Labs Labs: 01/01/19 16:04 01/03/19 17:05 PT 15.2 SECONDS (9.7-12.2) H 01/06/19 06:39 INR 1.4 01/06/19 06:39 APTT 95 SECONDS (21-34) H 01/06/19 06:39 - Head Exam Head Exam: NORMOCEPHALIC - Neck Exam Neck Exam: Normal Inspection - Respiratory Exam Respiratory Exam: NORMAL BREATHING PATTERN - Cardiovascular Exam Cardiovascular Exam: REGULAR RHYTHM - Extremities Exam Extremities Exam: Normal Inspection - Neurological Exam Neurological Exam: Alert, Oriented x3 Assessment and Plan (1) Chest pain Assessment & Plan: Plans for cardiac cath. Further management accordingly. Status: Acute (2) CAD (coronary artery disease) of artery bypass graft Status: Chronic
[2019-01-06] MEDS ORDERED: Iodixanol 320 MG/ML 200 ML BOTTLE IV ONE (11:09)
[2019-01-06] MEDS ORDERED: Midazolam 2 MG/2 ML VIAL ONE (11:12)
--- NOTE | 2019-01-06 14:09 | CP.PCM.PN ---
Subjective - Date & Time of Evaluation Date of Evaluation: 01/06/19 Time of Evaluation: 14:09 - Subjective Subjective: Patient is seen and examined No events overnight Status post cardiac cath Objective - Vital Signs/Intake and Output Vital Signs (last 24 hours): Temp Pulse Resp BP Pulse Ox 98.0 F 77 20 137/74 97 01/06/19 12:00 01/06/19 12:00 01/06/19 12:00 01/06/19 12:00 01/06/19 12:00 Intake and Output: 01/06/19 01/06/19 06:59 18:59 Intake Total 350 0 Output Total 600 Balance -250 0 - Medications Medications: Current Medications Amlodipine Besylate (Norvasc) 10 mg PO DAILY [facility] Last Admin: 01/06/19 10:24 Dose: Not Given Apixaban (Eliquis) 5 mg PO BID [facility] Last Admin: 01/06/19 10:24 Dose: Not Given Aspirin (Aspirin Chewable) 81 mg PO DAILY [facility] Last Admin: 01/06/19 10:23 Dose: Not Given Clopidogrel Bisulfate (Plavix) 75 mg PO DAILY [facility] Last Admin: 01/06/19 10:24 Dose: Not Given Dextrose (Dextrose 50% Inj) 0 ml IV STAT PRN; Protocol PRN Reason: Hypoglycemia Protocol Dextrose (Glutose 15) 0 gm PO ONCE PRN; Protocol PRN Reason: Hypoglycemia Protocol Glimepiride (Amaryl) 4 mg PO DAILY [facility] Last Admin: 01/06/19 10:23 Dose: Not Given Glucagon (Glucagen Diagnostic Kit) 0 mg IM STAT PRN; Protocol PRN Reason: Hypoglycemia Protocol Hydrochlorothiazide (Hydrodiuril) 25 mg PO DAILY [facility] Last Admin: 01/06/19 10:24 Dose: Not Given Insulin Aspart (Novolog) 0 unit [facility]; Protocol Last Admin: 01/06/19 12:12 Dose: Not Given Losartan Potassium (Cozaar) 25 mg PO DAILY [facility] Last Admin: 01/06/19 10:23 Dose: Not Given Metoprolol Succinate (Toprol Xl) 100 mg PO DAILY [facility] Last Admin: 01/06/19 10:24 Dose: Not Given Rosuvastatin Calcium (Crestor) 10 mg PO HS [facility] Last Admin: 01/05/19 21:05 Dose: 10 mg - Labs Labs: 01/01/19 16:04 01/03/19 17:05 PT 15.2 SECONDS (9.7-12.2) H 01/06/19 06:39 INR 1.4 01/06/19 06:39 APTT 95 SECONDS (21-34) H 01/06/19 06:39 - Head Exam Head Exam: NORMAL INSPECTION - Eye Exam Eye Exam: Normal appearance - ENT Exam ENT Exam: Mucous Membranes Moist - Respiratory Exam Respiratory Exam: Clear to Ausculation Bilateral - Cardiovascular Exam Cardiovascular Exam: REGULAR RHYTHM, +S1, +S2 - GI/Abdominal Exam GI & Abdominal Exam: Soft, Normal Bowel Sounds - Extremities Exam Extremities Exam: Normal Inspection Assessment and Plan (1) Dizziness Status: Acute (2) Hypertension Status: Acute (3) Shortness of breath Status: Acute (4) CVA (cerebral vascular accident) Status: Acute (5) CAD (coronary artery disease) of artery bypass graft Status: Chronic (6) Diabetes mellitus Status: Chronic - Assessment and Plan (Free Text) Plan: S/P cardiac cath with normal coronaries Neurology follow-up Awaiting MRI Accu-Chek Insulin coverage Blood pressure control DVT/GI prophylaxis
--- NOTE | 2019-01-06 17:14 | CP.PCM.PN ---
Subjective - Date & Time of Evaluation Date of Evaluation: 01/06/19 Time of Evaluation: 17:11 - Subjective Subjective: Neuro Follow-Up Note: Mr. Hernández was evaluated this afternoon. Significant other at bedside. Pt underwent a cardiac cath today and tolerated well. He offers no complaints. Denies any further or repeat neuro symptoms since Sunday. Denies h/a, dizziness, visual changes, chest pain, palpitations, sob, cough, abd pain, n/v/d. Objective - Vital Signs/Intake and Output Vital Signs (last 24 hours): Temp Pulse Resp BP Pulse Ox 98 F 83 22 146/72 97 01/06/19 16:00 01/06/19 16:00 01/06/19 16:00 01/06/19 16:00 01/06/19 16:00 Intake and Output: 01/06/19 01/06/19 06:59 18:59 Intake Total 350 0 Output Total 600 Balance -250 0 - Medications Medications: Current Medications Amlodipine Besylate (Norvasc) 10 mg PO DAILY [facility] Last Admin: 01/06/19 10:24 Dose: Not Given Apixaban (Eliquis) 5 mg PO BID [facility] Last Admin: 01/06/19 10:24 Dose: Not Given Aspirin (Aspirin Chewable) 81 mg PO DAILY [facility] Last Admin: 01/06/19 10:23 Dose: Not Given Clopidogrel Bisulfate (Plavix) 75 mg PO DAILY [facility] Last Admin: 01/06/19 10:24 Dose: Not Given Dextrose (Dextrose 50% Inj) 0 ml IV STAT PRN; Protocol PRN Reason: Hypoglycemia Protocol Dextrose (Glutose 15) 0 gm PO ONCE PRN; Protocol PRN Reason: Hypoglycemia Protocol Glimepiride (Amaryl) 4 mg PO DAILY [facility] Last Admin: 01/06/19 10:23 Dose: Not Given Glucagon (Glucagen Diagnostic Kit) 0 mg IM STAT PRN; Protocol PRN Reason: Hypoglycemia Protocol Hydrochlorothiazide (Hydrodiuril) 25 mg PO DAILY [facility] Last Admin: 01/06/19 10:24 Dose: Not Given Insulin Aspart (Novolog) 0 unit SC [facility]; Protocol Last Admin: 01/06/19 12:12 Dose: Not Given Losartan Potassium (Cozaar) 25 mg PO DAILY [facility] Last Admin: 01/06/19 10:23 Dose: Not Given Metoprolol Succinate (Toprol Xl) 100 mg PO DAILY [facility] Last Admin: 01/06/19 10:24 Dose: Not Given Rosuvastatin Calcium (Crestor) 10 mg PO HS [facility] Last Admin: 01/05/19 21:05 Dose: 10 mg - Labs Labs: 01/01/19 16:04 01/03/19 17:05 PT 15.2 SECONDS (9.7-12.2) H 01/06/19 06:39 INR 1.4 01/06/19 06:39 APTT 95 SECONDS (21-34) H 01/06/19 06:39 - Constitutional Appears: Well, Non-toxic, No Acute Distress - Head Exam Head Exam: ATRAUMATIC, NORMAL INSPECTION, NORMOCEPHALIC - Eye Exam Eye Exam: EOMI, Normal appearance, PERRL Pupil Exam: NORMAL ACCOMODATION, PERRL - ENT Exam ENT Exam: Mucous Membranes Moist - Neck Exam Neck Exam: Full ROM, Normal Inspection - Respiratory Exam Respiratory Exam: NORMAL BREATHING PATTERN - Extremities Exam Extremities Exam: Full ROM - Neurological Exam Neurological Exam: Alert, Awake, CN II-XII Intact, Normal Gait Neuro motor strength exam: Left Upper Extremity: 5, Right Upper Extremity: 5, Left Lower Extremity: 5, Right Lower Extremity: 5 Additional comments: Speech clear, fluid Follows all commands No motor or sensory deficits noted. No dysmetria, no ataxia, gait steady. No tremors Unable to elicit patellar reflexes Toes down going b/l - Psychiatric Exam Psychiatric exam: Normal Affect, Normal Mood - Skin Skin Exam: Normal Color Assessment and Plan - Assessment and Plan (Free Text) Assessment: A/P: Mr. Hernández is a 78 y/o M who was admitted for CHF, DVT, and SOB. Two days into his admission, he developed left arm and leg weakness and numbness as well as left facial droop. These symptoms were observed by ICU staff and a code stroke was called. His symptoms have since resolved. Imaging shows chronic strokes, however, he has not been evaluated for an acute cva. Imaging reviewed: -CT Head (01/03/19): No acute intracranial hemorrhage. Chronic left frontal and left posterior temporoparietal lobes... There is extension of the frontal i nfarct into the of white matter tracts of the left basal ganglia particularly along the external capsule region. Additionally, mild diffuse/confluent chronic white matter ischemic changes are also present. Scattered chronic bilateral basal nuclei lacunar infarcts also seen. Note that the possibility of a small hyperacute infarct cannot be excluded on this study. Moderate to significant generalized volume loss. There is a small extra-axial calcification right frontal region that could represent a small calcified meningioma. -CTA Head and Neck (01/03/19): There is stenosis of the right internal carotid artery estimated at approximately 65 % and stenosis of the left carotid bifurcation/ICA junction estimated at approximately 70%. There is also significant stenosis of moderate to significant stenosis of both carotid siphons and distal vertebral arteries (proximal intradural segments). No evidence of occlusion of the intra cerebral vasculature as above. No evidence of large aneurysm nor vascular malformation. -MRI Brain without contrast to r/o acute stroke ordered for tomorrow morning. -NeuroIR consulted for CTA results--will f/u with recommendations. -Continue Eliquis 5 mg PO BID; continue statin. -Will discuss with Dr. Montero need to continue ASA and Plavix. -Continue PT. -Continue current treatment. -Notify neuro team of any acute changes in pt's condition. Karly Shirley, SANKET, CERTIFIED ANESTHESIOLOGIST ASSISTANT Discussed with Dr. Montero
--- NOTE | 2019-01-07 07:27 | CARDCATH ---
PROCEDURE DATE: 01/06/2019 BRIEF CLINICAL HISTORY: The patient is a 78-year-old with history of coronary artery disease, status post bypass in 2011; diabetes; hyperlipidemia; and hypertension. The patient was admitted with chest pain and borderline troponin and after discussing with the patient, the patient was prepped for the cardiac catheterization. PROCEDURE TECHNIQUE: After obtaining the consent, the patient was brought to the cardiac catheterization lab where he was prepared for the procedure. Right groin was used for access. After obtaining the access, a 6-Tajik sheath was introduced into the right femoral artery, and the access was completed without complication. JL4 catheter was used to visualize the left coronary artery system. The JR4 catheter was used to visualize the right coronary artery system and TEJADA to LAD and SV graft. FINDINGS: The patient has no significant ostial disease of the left main. The patient has 100% proximal LAD. The patient has circumflex and OM 90% in the proximal segment. The patient has 100% PDA. TEJADA to LAD is patent. PDA with some atresia. SVG Y-graft to OM and diagonal 1 is patent without any disease. SVG to PDA is patent without any significant disease. Mild LV systolic function. ASSESSMENT: Triple-vessel muscogee coronary artery disease, patent graft to obtuse marginal and diagonal 1, patent graft to posterior descending artery, patent left internal mammary artery graft to left anterior descending with mild left ventricular systolic function. PLAN: The patient will be given IV fluids. The patient will be transferred to the ICU where he will be continued IV hydration. Discussed with the patient about the risk factor modification. The patient will be followed by his primary glove parts inspector. Elaine Gayle MD
[2019-01-07] MEDS: (Novolog) Insulin Aspart, Recombinant 100 u/ml 10 ml vial SC SCH ×3 (08:10→16:21)
[2019-01-07] MEDS: Metoprolol Succinate 100 mg XL Tab PO SCH (09:25)
--- NOTE | 2019-01-07 10:24 | CP.PCM.PN ---
Subjective - Date & Time of Evaluation Date of Evaluation: 01/07/19 Time of Evaluation: 10:24 - Subjective Subjective: Neuro Follow-Up Note: Mr. Hernández was evaluated this morning. He offers no complaints. He is eager to go home; requesting to be d/c'd home today. Denies any further or repeat neuro symptoms since Sunday. Denies h/a, dizziness, visual changes, chest pain, palpitations, sob, cough, abd pain, n/v/d. Objective - Vital Signs/Intake and Output Vital Signs (last 24 hours): Temp Pulse Resp BP Pulse Ox 98.1 F 78 20 123/58 L 97 01/07/19 08:00 01/07/19 10:00 01/07/19 09:23 01/07/19 09:23 01/07/19 09:23 Intake and Output: 01/07/19 01/07/19 06:59 18:59 Intake Total 550 0 Output Total 500 100 Balance 50 -100 - Medications Medications: Current Medications Amlodipine Besylate (Norvasc) 10 mg PO DAILY [facility] Last Admin: 01/07/19 09:25 Dose: 10 mg Apixaban (Eliquis) 5 mg PO BID [facility] Last Admin: 01/07/19 09:24 Dose: 5 mg Aspirin (Aspirin Chewable) 81 mg PO DAILY [facility] Last Admin: 01/07/19 09:24 Dose: 81 mg Dextrose (Dextrose 50% Inj) 0 ml IV STAT PRN; Protocol PRN Reason: Hypoglycemia Protocol Dextrose (Glutose 15) 0 gm PO ONCE PRN; Protocol PRN Reason: Hypoglycemia Protocol Glimepiride (Amaryl) 4 mg PO DAILY [facility] Last Admin: 01/07/19 09:24 Dose: 4 mg Glucagon (Glucagen Diagnostic Kit) 0 mg IM STAT PRN; Protocol PRN Reason: Hypoglycemia Protocol Hydrochlorothiazide (Hydrodiuril) 25 mg PO DAILY [facility] Last Admin: 01/07/19 09:25 Dose: 25 mg Insulin Aspart (Novolog) 0 unit SC [facility]; Protocol Last Admin: 01/07/19 08:10 Dose: Not Given Losartan Potassium (Cozaar) 25 mg PO DAILY [facility] Last Admin: 01/07/19 09:24 Dose: 25 mg Metoprolol Succinate (Toprol Xl) 100 mg PO DAILY [facility] Last Admin: 01/07/19 09:25 Dose: 100 mg Rosuvastatin Calcium (Crestor) 10 mg PO HS [facility] Last Admin: 01/06/19 22:07 Dose: 10 mg - Labs Labs: 01/01/19 16:04 01/03/19 17:05 PT 15.2 SECONDS (9.7-12.2) H 01/06/19 06:39 INR 1.4 01/06/19 06:39 APTT 95 SECONDS (21-34) H 01/06/19 06:39 - Constitutional Appears: Well, Non-toxic, No Acute Distress - Head Exam Head Exam: ATRAUMATIC, NORMAL INSPECTION, NORMOCEPHALIC - Eye Exam Eye Exam: EOMI, Normal appearance, PERRL Pupil Exam: NORMAL ACCOMODATION, PERRL - ENT Exam ENT Exam: Mucous Membranes Moist - Neck Exam Neck Exam: Full ROM, Normal Inspection - Respiratory Exam Respiratory Exam: NORMAL BREATHING PATTERN - Extremities Exam Extremities Exam: Full ROM. absent: Calf Tenderness, Pedal Edema - Back Exam Back Exam: Full ROM - Neurological Exam Neurological Exam: Alert, Awake, CN II-XII Intact, Normal Gait, Oriented x3 Neuro motor strength exam: Left Upper Extremity: 5, Right Upper Extremity: 5, Left Lower Extremity: 5, Right Lower Extremity: 5 Additional comments: Speech clear, fluid Follows all commands No motor or sensory deficits noted. No dysmetria, no ataxia, gait steady. No tremors Unable to elicit patellar reflexes Toes down going b/l - Psychiatric Exam Psychiatric exam: Normal Affect, Normal Mood - Skin Skin Exam: Normal Color Assessment and Plan - Assessment and Plan (Free Text) Assessment: A/P: Mr. Hernández is a 78 y/o M who was admitted for CHF, DVT, and SOB. Two days into his admission, he developed left arm and leg weakness and numbness as well as left facial droop. These symptoms were observed by ICU staff and a code stroke was called. His symptoms have since resolved. Imaging shows chronic strokes, however, he has not been evaluated for an acute cva. He refused Brain MRI this morning, therefore, we can repeat a CT Head today to re-eval. Imaging reviewed: -CT Head (01/03/19): No acute intracranial hemorrhage. Chronic left frontal and left posterior temporoparietal lobes... There is extension of the frontal infarct into the of white matter tracts of the left basal ganglia particularly along the external capsule region. Additionally, mild diffuse/confluent chronic white matter ischemic changes are also present. Scattered chronic bilateral b yudelka nuclei lacunar infarcts also seen. Note that the possibility of a small hyperacute infarct cannot be excluded on this study. Moderate to significant generalized volume loss. There is a small extra-axial calcification right frontal region that could represent a small calcified meningioma. -CTA Head and Neck (01/03/19): There is stenosis of the right internal carotid artery estimated at approximately 65 % and stenosis of the left carotid bifurcation/ICA junction estimated at approximately 70%. There is also significant stenosis of moderate to significant stenosis of both carotid siphons and distal vertebral arteries (proximal intradural segments). No evidence of occlusion of the intra cerebral vasculature as above. No evidence of large aneurysm nor vascular malformation. -MRI Brain without contrast to r/o acute stroke ordered--pt refused. -Repeat CT Head without contrats ordered to r/o acute intracranial changes and hemorrhagic conversion--will f/u with results. -NeuroIR consulted for CTA results--will f/u with recommendations. -Continue Eliquis 5 mg PO BID; continue statin. -Discussed with Dr. Montero need to continue ASA and Plavix--we are recommending to hold Plavix for now and continue Eliquis and ASA. We may make changes to this after pt it evaluated by neuro IR. If cardiology also has other recommendations, please notify me or Dr. Montero. -Continue PT. -Continue current treatment. -Notify neuro team of any acute changes in pt's condition. Karly Shirley, SANKET, [employer] Discussed with Dr. Montero
--- NOTE | 2019-01-07 12:49 | CP.PCM.CON ---
History of Present Illness - History of Present Illness History of Present Illness: [facility] Dr.Farkas Dr.Arcot Dr.Turkell-Parella Dr.Liff Jonny Reiswiloni MSNA,AGNP-BC, NUTRITION DIRECTOR is a 78 year old male with a PmHx HTN, CAD s/p CABG, B/L DVT, DM, stroke>5 years ago presents to the ED with SOB. Pt was recently hospitalized for a ruptured appendix and b/l DVT. Pt was discharged on eliquis and ASA and was not compliant with the eliquis. Pt stated that he was resting in bed while in the hospital this admission and began to have numbness on the left side of his face,tongue, and weakness via le ft upper and lower extremity.Pt family member was present and verified that pt was having slurred speech.This occured on 01/03/19. Stroke code was called and pt was not candidate for TPA. CT head with chronic infarcts and CTA head and neck 70% stenosis of left ICA and 65% stenosis right ICA. All symptoms had resolved. Pt denies weakness,numbness,vision changes,or difficulty with speech. Review of Systems - Constitutional Constitutional: As Per HPI Past Patient History - Infectious Disease Hx of Infectious Diseases: None - Past Medical History & Family History Past Medical History?: Yes - Past Social History Smoking Status: Never Smoked Chewing Tobacco Use: No Cigar Use: No Alcohol: None - CARDIAC Hx Cardiac Disorders: Yes (CABG) Hx Congestive Heart Failure: Yes Hx Hypercholesterolemia: Yes Hx Hypertension: Yes - PULMONARY Hx Bronchitis: Yes - NEUROLOGICAL HX Cerebrovascular Accident: Yes - HEENT Hx HEENT Problems: No - RENAL Hx Chronic Kidney Disease: No - ENDOCRINE/METABOLIC Hx Diabetes Mellitus Type 2: Yes - HEMATOLOGICAL/ONCOLOGICAL Hx Blood Disorders: Yes Hx Blood Transfusions: Yes Hx Blood Transfusion Reaction: No - INTEGUMENTARY Hx Dermatological Problems: No - MUSCULOSKELETAL/RHEUMATOLOGICAL Hx Arthritis: Yes - GASTROINTESTINAL Hx Gastrointestinal Disorders: Yes - GENITOURINARY/GYNECOLOGICAL Hx Genitourinary Disorders: No - PSYCHIATRIC Hx Substance Use: No - SURGICAL HISTORY Hx Appendectomy: Yes (2017) Hx Cholecystectomy: Yes Hx Coronary Artery Bypass Graft: Yes (2011) - ANESTHESIA Hx Anesthesia: Yes Hx Anesthesia Reactions: No Hx Malignant Hyperthermia: No Meds Allergies/Adverse Reactions: Allergies Allergy/AdvReac Type Severity Reaction Status Date / Time No Known Allergies Allergy Verified 01/01/19 15:24 - Medications Medications: Current Medications Amlodipine Besylate (Norvasc) 10 mg PO DAILY [facility] Last Admin: 01/07/19 09:25 Dose: 10 mg Apixaban (Eliquis) 5 mg PO BID [facility] Last Admin: 01/07/19 09:24 Dose: 5 mg Aspirin (Aspirin Chewable) 81 mg PO DAILY [facility] Last Admin: 01/07/19 09:24 Dose: 81 mg Dextrose (Dextrose 50% Inj) 0 ml IV STAT PRN; Protocol PRN Reason: Hypoglycemia Protocol Dextrose (Glutose 15) 0 gm PO ONCE PRN; Protocol PRN Reason: Hypoglycemia Protocol Glimepiride (Amaryl) 4 mg PO DAILY [facility] Last Admin: 01/07/19 09:24 Dose: 4 mg Glucagon (Glucagen Diagnostic Kit) 0 mg IM STAT PRN; Protocol PRN Reason: Hypoglycemia Protocol Hydrochlorothiazide (Hydrodiuril) 25 mg PO DAILY [facility] Last Admin: 01/07/19 09:25 Dose: 25 mg Insulin Aspart (Novolog) 0 unit SC [facility]; Protocol Last Admin: 01/07/19 12:01 Dose: 3 units Losartan Potassium (Cozaar) 25 mg PO DAILY [facility] Last Admin: 01/07/19 09:24 Dose: 25 mg Metoprolol Succinate (Toprol Xl) 100 mg PO DAILY [facility] Last Admin: 01/07/19 09:25 Dose: 100 mg Rosuvastatin Calcium (Crestor) 10 mg PO HS [facility] Last Admin: 01/06/19 22:07 Dose: 10 mg Physical Exam - Head Exam Head Exam: ATRAUMATIC - Eye Exam Eye Exam: EOMI, Normal appearance Pupil Exam: NORMAL ACCOMODATION, PERRL - Rectal Exam Rectal Exam: Deferred - Extremities Exam Extremities exam: Positive for: full ROM - Neurological Exam Neurological exam: Alert, CN II-XII Intact, Normal Gait, Oriented x3, Reflexes Normal Results - Vital Signs Recent Vital Signs: Last Vital Signs Temp 98.1 F 01/07/19 08:00 Pulse 78 01/07/19 10:00 Resp 20 01/07/19 09:23 BP 123/58 L 01/07/19 09:23 Pulse Ox 97 01/07/19 09:23 - Labs Result Diagrams: 01/01/19 16:04 01/03/19 17:05 Labs: Laboratory Results - last 24 hr 01/06/19 01/06/19 01/06/19 12:09 16:00 21:04 POC Glucose (mg/dL) 141 H 178 H 205 H 01/07/19 01/07/19 07:32 11:38 POC Glucose (mg/dL) 137 H 249 H Assessment & Plan - Assessment and Plan (Free Text) Assessment: NEUROLOGY ASSESSMENT: General: awake, sitting on the side of bed Mental Status: alert and oriented to person, place, and time, follows vebal comm ands, regards on both sides Speech: no dysarthria, speech fluent, Cranial Nerves: PERRL, BTT bilaterally, EOMI, no facial asymmetry, tongue midline Motor: 5/5 left and right U/L extremities Sensory: Intact bilaterally Coordination: [id number] no dysmetria Gait: Normal is a 78 year old male admitted for SOB recent h/o b/l DVT non- compliant with eloquis.Pt developed slurred speech, numbness on left side of face and tongue with weakness via left upper and lower extemity. Stroke code called not a candidate for TPA. CTA head and neck with 70% stenosis on left ICA and 65% stenosis on the right ICA. We were called for consult. All symptoms have resolved, NIHSS 0. Will follow with pt as out pt. Plan: 1- Agree with discharge 2-Agree with ASA 81mg, Eliquis 5mg BID 3- Will follow as an out patient 4-If I can be of further assistance please contact [phone] ICU consult 45 min spent on assessment and plan
--- NOTE | 2019-01-07 14:16 | CT ---
Date of service: 01/07/2019 PROCEDURE: CT HEAD WITHOUT CONTRAST. HISTORY: Rule out hemorrhagic conversion COMPARISON: Comparison made with prior study 01/03/2019 TECHNIQUE: Axial computed tomography images were obtained through the head/brain without intravenous contrast. Radiation dose: Total exam DLP = 1105.22 mGy-cm. This CT exam was performed using one or more of the following dose reduction techniques: Automated exposure control, adjustment of the mA and/or kV according to patient size, and/or use of iterative reconstruction technique. FINDINGS: HEMORRHAGE: No intracranial hemorrhage. BRAIN: There is a large area of partially cystic encephalomalacia left inferior frontal lobe as well as left posterior temporoparietal watershed zone extending to the vertex. Findings most consistent with chronic infarcts. There is extension the left frontal infarct into the left basal ganglia and left lozada radiata. In addition, there is mild chronic periventricular white matter ischemic changes best appreciated in the right cerebral hemisphere due to the large infarct changes on the left side. Few more discrete chronic deep and subcortical white matter infarcts also noted in the right cerebral hemisphere. Note the possibility of a small hyperacute infarct not excluded. Moderate to fairly significant central atrophy, not withstanding aforementioned infarct changes. Questionable small calcified meningioma right frontal region unchanged. Vascular calcifications both carotid siphons and vertebral arteries again noted VENTRICLES: No obstructive hydrocephalus. CALVARIUM: Unremarkable. PARANASAL SINUSES: No significant significant inflammatory changes and unchanged in appearance. MASTOID AIR CELLS: Unremarkable as visualized. No inflammatory changes. OTHER FINDINGS: None. IMPRESSION: There is a large area of partially cystic encephalomalacia left inferior frontal lobe as well as left posterior temporoparietal watershed zone extending to the vertex. Findings most consistent with chronic infarcts. There is extension the left frontal infarct into the left basal ganglia and left lozada radiata. In addition, there is mild chronic periventricular white matter ischemic changes best appreciated in the right cerebral hemisphere due to the large infarct changes on the left side. Few more discrete chronic deep and subcortical white matter infarcts also noted in the right cerebral hemisphere. Note the possibility of a small hyperacute infarct not excluded. Moderate to fairly significant central atrophy, not withstanding aforementioned infarct changes. Questionable small calcified meningioma right frontal region unchanged.
--- NOTE | 2019-01-07 15:24 | CP.PCM.PN ---
Subjective - Date & Time of Evaluation Date of Evaluation: 01/07/19 Time of Evaluation: 15:24 - Subjective Subjective: Patient is seen and examined No events overnight Objective - Vital Signs/Intake and Output Vital Signs (last 24 hours): Temp Pulse Resp BP Pulse Ox 98.5 F 82 22 118/58 L 96 01/07/19 12:00 01/07/19 12:00 01/07/19 12:00 01/07/19 12:00 01/07/19 12:00 Intake and Output: 01/07/19 01/07/19 06:59 18:59 Intake Total 550 350 Output Total 500 100 Balance 50 250 - Medications Medications: Current Medications Amlodipine Besylate (Norvasc) 10 mg PO DAILY [facility] Last Admin: 01/07/19 09:25 Dose: 10 mg Apixaban (Eliquis) 5 mg PO BID [facility] Last Admin: 01/07/19 09:24 Dose: 5 mg Aspirin (Aspirin Chewable) 81 mg PO DAILY [facility] Last Admin: 01/07/19 09:24 Dose: 81 mg Dextrose (Dextrose 50% Inj) 0 ml IV STAT PRN; Protocol PRN Reason: Hypoglycemia Protocol Dextrose (Glutose 15) 0 gm PO ONCE PRN; Protocol PRN Reason: Hypoglycemia Protocol Glimepiride (Amaryl) 4 mg PO DAILY [facility] Last Admin: 01/07/19 09:24 Dose: 4 mg Glucagon (Glucagen Diagnostic Kit) 0 mg IM STAT PRN; Protocol PRN Reason: Hypoglycemia Protocol Hydrochlorothiazide (Hydrodiuril) 25 mg PO DAILY [facility] Last Admin: 01/07/19 09:25 Dose: 25 mg Insulin Aspart (Novolog) 0 unit SC [facility]; Protocol Last Admin: 01/07/19 12:01 Dose: 3 units Losartan Potassium (Cozaar) 25 mg PO DAILY [facility] Last Admin: 01/07/19 09:24 Dose: 25 mg Metoprolol Succinate (Toprol Xl) 100 mg PO DAILY [facility] Last Admin: 01/07/19 09:25 Dose: 100 mg Rosuvastatin Calcium (Crestor) 10 mg PO HS [facility] Last Admin: 01/06/19 22:07 Dose: 10 mg - Labs Labs: 01/01/19 16:04 01/03/19 17:05 PT 15.2 SECONDS (9.7-12.2) H 01/06/19 06:39 INR 1.4 02/25/19 06:39 APTT 95 SECONDS (21-34) H 01/06/19 06:39 - Head Exam Head Exam: NORMAL INSPECTION - Eye Exam Eye Exam: Normal appearance - ENT Exam ENT Exam: Mucous Membranes Moist - Respiratory Exam Respiratory Exam: Clear to Ausculation Bilateral - Cardiovascular Exam Cardiovascular Exam: REGULAR RHYTHM, +S1, +S2 - GI/Abdominal Exam GI & Abdominal Exam: Soft, Normal Bowel Sounds - Extremities Exam Extremities Exam: Normal Inspection Assessment and Plan (1) Dizziness Status: Acute (2) Hypertension Status: Acute (3) Shortness of breath Status: Acute (4) CVA (cerebral vascular accident) Status: Acute (5) CAD (coronary artery disease) of artery bypass graft Status: Chronic (6) Diabetes mellitus Status: Chronic - Assessment and Plan (Free Text) Assessment: Continue Accu-Cheks Insulin coverage Blood pressure control MRI brain negative Patient's symptoms have resolved Discharge patient home once cleared by neurology
[2019-01-07 16:11] VITALS: O2SAT 97
[2019-01-07] MEDS ORDERED: Iohexol 300 100 ML IJ ONE (17:56)
--- NOTE | 2019-01-07 18:16 | CP.PCM.PN ---
Subjective - Date & Time of Evaluation Date of Evaluation: 01/07/19 Time of Evaluation: 11:00 - Subjective Subjective: ALERT, ORIENTEDX3, NO SOB OR DISTRESS, NAD. Objective - Vital Signs/Intake and Output Vital Signs (last 24 hours): Temp Pulse Resp BP Pulse Ox 98.0 F 75 20 118/78 97 01/07/19 16:00 01/07/19 16:00 01/07/19 16:00 01/07/19 16:00 01/07/19 16:00 Intake and Output: 01/07/19 01/07/19 06:59 18:59 Intake Total 550 350 Output Total 500 100 Balance 50 250 - Medications Medications: Current Medications Amlodipine Besylate (Norvasc) 10 mg PO DAILY [facility] Last Admin: 01/07/19 09:25 Dose: 10 mg Apixaban (Eliquis) 5 mg PO BID [facility] Last Admin: 01/07/19 09:24 Dose: 5 mg Aspirin (Aspirin Chewable) 81 mg PO DAILY [facility] Last Admin: 01/07/19 09:24 Dose: 81 mg Dextrose (Dextrose 50% Inj) 0 ml IV STAT PRN; Protocol PRN Reason: Hypoglycemia Protocol Dextrose (Glutose 15) 0 gm PO ONCE PRN; Protocol PRN Reason: Hypoglycemia Protocol Glimepiride (Amaryl) 4 mg PO DAILY [facility] Last Admin: 01/07/19 09:24 Dose: 4 mg Glucagon (Glucagen Diagnostic Kit) 0 mg IM STAT PRN; Protocol PRN Reason: Hypoglycemia Protocol Hydrochlorothiazide (Hydrodiuril) 25 mg PO DAILY [facility] Last Admin: 01/07/19 09:25 Dose: 25 mg Insulin Aspart (Novolog) 0 unit SC [facility]; Protocol Last Admin: 01/07/19 16:21 Dose: Not Given Losartan Potassium (Cozaar) 25 mg PO DAILY [facility] Last Admin: 01/07/19 09:24 Dose: 25 mg Metoprolol Succinate (Toprol Xl) 100 mg PO DAILY [facility] Last Admin: 01/07/19 09:25 Dose: 100 mg Rosuvastatin Calcium (Crestor) 10 mg PO HS [facility] Last Admin: 01/06/19 22:07 Dose: 10 mg - Labs Labs: 01/01/19 16:04 01/03/19 17:05 PT 15.2 SECONDS (9.7-12.2) H 01/06/19 06:39 INR 1.4 01/06/19 06:39 APTT 95 SECONDS (21-34) H 01/06/19 06:39 Assessment and Plan - Assessment and Plan (Free Text) Assessment: 78 year old male admitted with sob dvt and generalized weakness, seen and examined. Alert and orientedx3, denies sob or chest pains, cleared by neuro and cardiology. Discussed with DR Madison, plan to discharge home on asa, eliquis and statin and other home medications. Able to walk with no difficulties as per PT.
--- NOTE | 2019-01-07 18:49 | CT ---
Date of service: 01/07/2019 PROCEDURE: CT HEAD WITHOUT CONTRAST. HISTORY: Left-sided numbness COMPARISON: Correlation made with concurrent CTA of the brain as well as prior noncontrast CT scan brain obtained 01/07/2019 at 12:49 p.m.. TECHNIQUE: Axial computed tomography images were obtained through the head/brain without intravenous contrast. Radiation dose: Total exam DLP = 1244.86 mGy-cm. This CT exam was performed using one or more of the following dose reduction techniques: Automated exposure control, adjustment of the mA and/or kV according to patient size, and/or use of iterative reconstruction technique. FINDINGS: HEMORRHAGE: No acute parenchymal, subarachnoid or extra-axial hemorrhage. BRAIN: Redemonstrated is a large area of partially cystic encephalomalacia left inferior frontal lobe as well as left posterior temporoparietal watershed zone extending to the vertex. Findings most consistent with chronic infarcts. There is extension the left frontal infarct into the left basal ganglia and left lozada radiata. In addition, there is mild chronic periventricular white matter ischemic changes best appreciated in the right cerebral hemisphere due to the large infarct changes on the left side. Few more discrete chronic deep and subcortical white matter infarcts also noted in the right cerebral hemisphere. Note the possibility of a small hyperacute infarct not excluded. Moderate to fairly significant atrophy.. Possible small right frontal meningioma. VENTRICLES: No obstructive hydrocephalus. CALVARIUM: Unremarkable. PARANASAL SINUSES: Unremarkable as visualized. No significant inflammatory changes. MASTOID AIR CELLS: Unremarkable as visualized. No inflammatory changes. OTHER FINDINGS: None. IMPRESSION: No acute intracranial hemorrhage. Redemonstrated is a large area of partially cystic encephalomalacia left inferior frontal lobe as well as left posterior temporoparietal watershed zone extending to the vertex. Findings most consistent with chronic infarcts. There is extension the left frontal infarct into the left basal ganglia and left lozada radiata. In addition, there is mild chronic periventricular white matter ischemic changes best appreciated in the right cerebral hemisphere due to the large infarct changes on the left side. Few more discrete chronic deep and subcortical white matter infarcts also noted in the right cerebral hemisphere. Note the possibility of a small hyperacute infarct not excluded. Moderate to fairly significant atrophy..
--- NOTE | 2019-01-07 19:00 | CT ---
Date of service: 01/07/2019 PROCEDURE: CT Angiography of the neck and brain with contrast HISTORY: Left-sided numbness COMPARISON: Comparison made with concurrent CT scan brain TECHNIQUE: Contiguous axial images of the neck were obtained from the level of the vertex of the skull to the superior mediastinum in the arteriographic phase of enhancement. Coronal and sagittal reformats or also generated. IV contrast dose: 100 cc Omnipaque 300 contrast material Radiation dose: Total exam DLP = 753.0 mGy-cm. This CT exam was performed using one or more of the following dose reduction techniques: Automated exposure control, adjustment of the mA and/or kV according to patient size, and/or use of iterative reconstruction technique. FINDINGS: The partially calcified atherosclerotic plaque seen along the transverse portion of the aortic arch as well as at the origins of the right brachiocephalic left common carotid artery and left subclavian arteries. The common carotid arteries are patent without evidence of dissection there is despite a few tiny scattered calcified plaques. More significant partially calcified atherosclerotic plaque changes are present at both carotid bifurcations which extend into the proximal margins of both internal carotid arteries. Changes on the left-side side result in approximately 60-70 percent diameter % and on the right-side approximately 70-75 % at the distal margins of the carotid bifurcations proximal internal carotid arteries. The distal internal carotid arteries including the petrous cavernous and supraclinoid segments are patent however significant atherosclerotic plaque present at both carotid siphons. The vertebral arteries are patent throughout left-sided which is larger in caliber/more dominant than the right. Small calcified plaque seen along the proximal/mid left vertebral artery. There also calcified plaque changes seen along the distal vertebral artery just at the level of the C2 vertebral body segment. There also calcified plaque changes along the most distal margins of the vertebral arteries (proximal intradural segments) just before the vertebral arteries join to become the basilar artery. The visualized major branches of the [id number] are also patent. The distal branches of the anterior middle and posterior cerebral arteries are patent.. There appears to be minor asymmetry of the distal of anterior branches of the left middle cerebral artery corresponding to large chronic infarct changes in this location.. Note that the possibility of a acute occlusion of the smaller distal branches cannot be excluded on this exam. No evidence of large aneurysm nor vascular malformation. OTHER FINDINGS: IMPRESSION: Partially calcified atherosclerotic plaque changes are present at both carotid bifurcations which extend into the proximal margins of both internal carotid arteries. Changes on the left-side side result in approximately 60-70 percent diameter % and on the right-side approximately 70-75 % at the distal margins of the carotid bifurcations proximal internal carotid arteries. Significant atherosclerotic plaque both carotid siphons. There are also calcified plaque changes seen along the distal vertebral arteries (proximal intradural segments). There is a slight paucity of distal anterior left MCA branches which presumably corresponds to a large chronic infarct change in this location. Note that the possibility of an acute occlusion of distal most branches of the left MCA cannot be completely excluded No evidence of large aneurysm nor vascular malformation.
[2019-01-07 20:59] VITALS: BP 138/70; PULSE 68; RESP 16; TEMP 97.6
--- NOTE | 2019-01-08 23:30 | CP.PCM.DIS ---
Provider - Provider Date of Admission: 01/01/19 19:04 Attending physician: Marshall Madison MD Consults: 01/01/19 23:36 Physician Consult Routine Comment: Consulting Provider: Darnell Yeung Consulting Physician: Darnell Yeung Reason for Consult: Chest pain 01/02/19 15:15 Cardiology Consult Routine Comment: Consulting Provider: Elaine Gayle Consulting Physician: Elaine Gayle Reason for Consult: Hx DVT, CABG 01/03/19 16:37 Physician Consult Routine Comment: Consulting Provider: Lei Alcocer Consulting Physician: Lei Alcocer Reason for Consult: Patient with history of TIA/CVA with persistent dizziness 01/03/19 16:38 Physician Consult Routine Comment: Consulting Provider: Pradeep Seo Consulting Physician: Pradeep Seo Reason for Consult: Medicine consult 01/06/19 17:14 Neurointerventional consult Routine Consulting Provider: Leonardo Yap Consulting Physician: Leonardo Yap Reason for Consult: Lt ICA stenosis 70%, Rt ICA stenosis 65%; Dr. Yap notified already Time Spent in preparation of Discharge (in minutes): 35 Diagnosis - Discharge Diagnosis (1) Dizziness Status: Acute (2) Hypertension Status: Acute (3) Shortness of breath Status: Acute (4) CVA (cerebral vascular accident) Status: Acute (5) CAD (coronary artery disease) of artery bypass graft Status: Chronic (6) Diabetes mellitus Status: Chronic Hospital Course - Lab Results Lab Results: Micro Results 01/01/19 06:12 Nose MRSA Culture (Admit) - Final MRSA NOT DETECTED Most Recent Lab Values WBC 7.1 K/uL (4.8-10.8) D 01/01/19 16:04 RBC 4.02 Mil/uL (4.40-5.90) L 01/01/19 16:04 Hgb 12.4 g/dL (12.0-18.0) D 01/01/19 16:04 Hct 37.4 % (35.0-51.0) 01/01/19 16:04 MCV 93.1 fL (80.0-94.0) 01/01/19 16:04 MCH 30.9 pg (27.0-31.0) 01/01/19 16:04 MCHC 33.2 g/dL (33.0-37.0) 01/01/19 16:04 RDW 15.0 % (11.5-14.5) H 01/01/19 16:04 Plt Count 195 K/uL (130-400) D 01/01/19 16:04 MPV 7.3 fL (7.2-11.7) 01/01/19 16:04 Neut % (Auto) 69.6 % (50.0-75.0) 01/01/19 16:04 Lymph % (Auto) 14.9 % (20.0-40.0) L 01/01/19 16:04 [place] % (Auto) 11.4 % (0.0-10.0) H 01/01/19 16:04 Eos % (Auto) 3.8 % (0.0-4.0) 01/01/19 16:04 Baso % (Auto) 0.3 % (0.0-2.0) 01/01/19 16:04 Neut # (Auto) 4.9 K/uL (1.8-7.0) 01/01/19 16:04 Lymph # (Auto) 1.1 K/uL (1.0-4.3) 01/01/19 16:04 [place]ole # (Auto) 0.8 K/uL (0.0-0.8) 01/01/19 16:04 Eos # (Auto) 0.3 K/uL (0.0-0.7) 01/01/19 16:04 Baso # (Auto) 0.0 K/uL (0.0-0.2) 01/01/19 16:04 PT 15.2 SECONDS (9.7-12.2) H 01/06/19 06:39 INR 1.4 01/06/19 06:39 APTT 95 SECONDS (21-34) H 01/06/19 06:39 Sodium 138 mmol/L (132-148) 01/03/19 17:05 Potassium 4.7 mmol/L (3.6-5.2) 01/03/19 17:05 Chloride 97 mmol/L (98-107) L 01/03/19 17:05 Carbon Dioxide 29 mmol/L (22-30) 01/03/19 17:05 Anion Gap 16 (10-20) 01/03/19 17:05 BUN 31 mg/dL (9-20) H 01/03/19 17:05 Creatinine 1.3 mg/dL (0.8-1.5) 01/03/19 17:05 Est GFR ( Amer) > 60 01/03/19 17:05 Est GFR (Non-Af Amer) 54 01/03/19 17:05 POC Glucose (mg/dL) 129 mg/dL (65-110) H 01/07/19 16:11 Random Glucose 168 mg/dL (75-110) H D 01/03/19 17:05 Calcium 9.5 mg/dl (8.6-10.4) 01/03/19 17:05 Phosphorus 4.7 mg/dL (2.5-4.5) H 01/03/19 17:05 Magnesium 1.7 mg/dL (1.6-2.3) 01/03/19 17:05 Total Bilirubin 0.9 mg/dL (0.2-1.3) 01/03/19 17:05 AST 20 U/L (17-59) 01/03/19 17:05 ALT 24 U/L (21-72) 01/03/19 17:05 Alkaline Phosphatase 65 U/L (38-126) 01/03/19 17:05 Total Creatine Kinase 22 U/L (55-170) L 01/03/19 17:16 CK-MB (Mass) 0.33 ng/mL (0.0-3.38) 01/03/19 17:16 Troponin I < 0.0120 ng/mL (0.00-0.120) 01/03/19 17:16 NT-Pro-B Natriuret Pep 402 pg/mL (0-900) 01/01/19 16:04 Total Protein 7.3 g/dL (6.3-8.3) 01/03/19 17:05 Albumin 4.4 g/dL (3.5-5.0) 01/03/19 17:05 Globulin 2.9 gm/dL (2.2-3.9) 01/03/19 17:05 Albumin/Globulin Ratio 1.5 (1.0-2.1) 01/03/19 17:05 Urine Color Yellow (YELLOW) 01/01/19 17:18 Urine Clarity Hazy (Clear) 01/01/19 17:18 Urine pH 5.0 (5.0-8.0) 01/01/19 17:18 Ur Specific [place] 1.023 (1.003-1.030) 01/01/19 17:18 Urine Protein 2+ mg/dL (NEGATIVE) H 01/01/19 17:18 Urine Glucose (UA) Normal mg/dL (Normal) 01/01/19 17:18 Urine Ketones Negative mg/dL (NEGATIVE) 01/01/19 17:18 Urine Blood Negative (NEGATIVE) 01/01/19 17:18 Urine Nitrate Negative (NEGATIVE) 01/01/19 17:18 Urine Bilirubin Negative (NEGATIVE) 01/01/19 17:18 Urine Urobilinogen Normal mg/dL (0.2-1.0) 01/01/19 17:18 Ur Leukocyte Esterase Neg Isabel/uL (Negative) 01/01/19 17:18 Urine WBC (Auto) 1 /hpf (0-5) 01/01/19 17:18 Urine RBC (Auto) 1 /hpf (0-3) 01/01/19 17:18 Ur Squamous Epith Cells < 1 /hpf (0-5) 01/01/19 17:18 Influenza Typ A,B (EIA) Negative for flu a/b (NEGATIVE) 01/01/19 16:04 - Hospital Course Hospital Course: 78-year-old gentleman with prior history of CVA, hypertension, diabetes, coronary disease presented with vague complaints of dizziness and chest dis comfort. During the hospital stay patient developed slurred speech and weakness. Stroke protocol was initiated. CT scan of brain and MRI brain were performed which were unremarkable. Patient symptoms resolved. Patient also underwent cardiac catheterization which showed nonobstructive coronary disease with patent grafts. Patient is discharged home in stable condition. Discharge Exam - Head Exam Head Exam: ATRAUMATIC, NORMAL INSPECTION - Eye Exam Eye Exam: Normal appearance - ENT Exam ENT Exam: Mucous Membranes Moist - Respiratory Exam Respiratory Exam: Clear to PA & Lateral - Cardiovascular Exam Cardiovascular Exam: REGULAR RHYTHM, +S1, +S2 - GI/Abdominal Exam GI & Abdominal Exam: Normal Bowel Sounds - Extremities Exam Extremities exam: normal inspection - Neurological Exam Neurological exam: Alert, Oriented x3 Discharge Plan - Follow Up Plan Condition: STABLE Disposition: HOME/ ROUTINE Instructions: Heart Failure, Adult (DC), High Blood Pressure (DC), Stroke (DC), Transient Ischemic Attack (DC), Shortness of Breath (Dyspnea) (DC), Controlling Your Blood Pressure Through Lifestyle, Lowering the Risk of Having Another Stro ke, Medicines After an Ischemic Stroke, Dizziness, Nonvertigo, (DC), Apixaban, Hypertension (DC), Hypertension (GEN) Additional Instructions: FOLLOW UP WITH PMD IN 1 WEEK FOLLOW UP WITH NEURO AND CARDIOLOGYST INSTRUCTED CONTINUE WITH PRESENT MEDS
== END 2019-01-07 22:00 | disposition home or self-care (01) | DRG 286 ==
LOC: C.ER 15:12 → OBSVTOIN 19:04 → C.9E 19:04 → C.9I 20:31
PROVIDERS: ADMIT Internal Medicine Critical Care Medicine; ATTEND Internal Medicine Critical Care Medicine
PROC: 4A023N7 Measurement of Cardiac Sampling and Pressure, Left Heart, Percutaneous Approach (ICD-10-PCS; principal; 2019-01-06)
PROC: B2111ZZ Fluoroscopy of Multiple Coronary Arteries using Low Osmolar Contrast (ICD-10-PCS; 2019-01-06)
PROC: B2181ZZ Fluoroscopy of Left Internal Mammary Bypass Graft using Low Osmolar Contrast (ICD-10-PCS; 2019-01-06)
PROC: B2151ZZ Fluoroscopy of Left Heart using Low Osmolar Contrast (ICD-10-PCS; 2019-01-06)
DX: I25.10 Atherosclerotic heart disease of native coronary artery without angina pectoris (principal); I63.9 Cerebral infarction, unspecified; R06.02 Shortness of breath; R42 Dizziness and giddiness; R47.81 Slurred speech; E11.9 Type 2 diabetes mellitus without complications; R53.1 Weakness; E78.00 Pure hypercholesterolemia, unspecified; I11.0 Hypertensive heart disease with heart failure; M19.90 Unspecified osteoarthritis, unspecified site; I50.9 Heart failure, unspecified; Z95.1 Presence of aortocoronary bypass graft; Z86.73 Personal history of transient ischemic attack (TIA), and cerebral infarction without residual deficits; Z90.49 Acquired absence of other specified parts of digestive tract; Z91.14 Patient's other noncompliance with medication regimen

== ENCOUNTER 2019-03-14 10:38 | Inpatient (IN) | payer MEDICARE ==
[2019-03-14 10:39] VITALS: BMI 37.5
[2019-03-14 12:00] LABS: BASO % 0.6 % (0.0-2.0); EOS % 0.2 % (0.0-4.0); HEMOGLOBIN 12.3 g/dL (12.0-18.0); LYMPH # 0.2 K/uL (1.0-4.3); LYMPH % 2.3 % (20.0-40.0); MEAN CELL VOLUME 92.5 fL (80.0-94.0); MEAN CORPUSCULAR HEMOGLOBIN 31.4 pg (27.0-31.0); MEAN PLATELET VOLUME 7.9 fL (7.2-11.7); MONO # 0.1 K/uL (0.0-0.8); NEUT # 7.4 K/uL (1.8-7.0); NEUT % 95.9 % (50.0-75.0); PLATELET COUNT 139 K/uL (130-400); RED CELL DISTRIBUTION WIDTH 13.4 % (11.5-14.5); WHITE BLOOD COUNT 7.7 K/uL (4.8-10.8)
[2019-03-14 12:06] LABS: INR 1.2; PROTHROMBIN TIME 13.2 SECONDS (9.7-12.2)
[2019-03-14 12:09] LABS: ALB/GLOB RATIO 1.5 (1.0-2.1); ALT/SGPT 33 U/L (21-72); AST/SGOT 34 U/L (17-59); BLOOD UREA NITROGEN 26 mg/dL (9-20); CALCIUM 9.3 mg/dl (8.6-10.4); GFR NON-AFRICAN AMERICAN 54
--- NOTE | 2019-03-14 12:09 | RAD ---
Date of service: 03/14/2019 PROCEDURE: CHEST RADIOGRAPH, 1 VIEW HISTORY: chest pain COMPARISON: 01/01/2019. FINDINGS: LUNGS: The lungs are well inflated and clear. PLEURA: No pneumothorax or pleural effusion. CARDIOVASCULAR: There is mild cardiomegaly. Status post CABG. No aortic atherosclerotic calcifications present. OSSEOUS STRUCTURES: Within normal limits for the patient's age. VISUALIZED UPPER ABDOMEN: Normal. OTHER FINDINGS: None. IMPRESSION: No active pulmonary disease.
[2019-03-14 12:22] LABS: B-TYPE NATRIURETIC PEPTIDE 565 pg/mL (0-900)
--- NOTE | 2019-03-14 12:28 | C.PDOC ---
History Of Present Illness 78 year old male with PMHx of diabetes, CHF, CAD, HTN, s/p CABG, presents to the ED complaining of left-sided chest pain since 8:00am this morning. Pain is described as constant and radiating into his left arm. Patient has also been coughing for the past few days. He reports chills, onset today. At present patient denies having any chest pain. He took 1x 81mg ASA prior to arrival. No recent travel. Patient denies any dizziness, SOB, syncope, leg pain, or edema. Time Seen by Provider: 03/14/19 11:19 Chief Complaint (Nursing): Chest Pain History Per: Patient History/Exam Limitations: no limitations Onset/Duration Of Symptoms: Hrs Current Symptoms Are (Timing): Gone Alleviating Factors: Other (Aspirin) Past Medical History Reviewed: Historical Data, Nursing Documentation, Vital Signs Vital Signs: Last Vital Signs Temp 100.4 F H 03/14/19 11:09 Pulse 95 H 03/14/19 11:21 Resp 26 H 03/14/19 11:21 BP 171/73 H 03/14/19 11:21 Pulse Ox 92 L 03/14/19 11:21 Primary Care Provider: Kojo Murrieta Medical History PMH: Arthritis, Bronchitis, CAD, CHF, CVA, Diabetes, Deep Vein Thrombosis (Bilateral DVT, on Eliquis), HTN, Hypercholesterolemia Denies: Chronic Kidney Disease Surgical History: Appendectomy (2018), CABG (2012), Cholecystectomy - [facility] Procedures ASSISTANCE WITH RESPIRATORY VENTILATION, 24-96 HRS, CPAP (10/23/18) ASSISTANCE WITH RESPIRATORY VENTILATION, <24 HRS, CPAP (10/23/18) DRAINAGE OF GALLBLADDER WITH DRAINAGE DEVICE, PERC APPROACH (05/10/17) ENDO EXCISION/DEST OF LESION OR TISSUE OF STOMACH (12/31/14) FLUOROSCOPY OF L INT MAMM GRAFT USING L OSM CONTRAST (01/01/19) FLUOROSCOPY OF LEFT HEART USING LOW OSMOLAR CONTRAST (01/01/19) FLUOROSCOPY OF MULT COR ART USING L OSM CONTRAST (01/01/19) INSERTION OF ENDOTRACHEAL AIRWAY INTO TRACHEA, VIA OPENING (10/23/18) MEASURE OF CARDIAC SAMPL & PRESSURE, L HEART, PERC APPROACH (01/01/19) RESPIRATORY VENTILATION, 24-96 CONSECUTIVE HOURS (10/23/18) ULTRASONOGRAPHY OF RIGHT AND LEFT HEART, TRANSESOPHAGEAL (05/10/17) Family History: States: Unknown Family Hx - Social History Hx Tobacco Use: No Hx Alcohol Use: No Hx Substance Use: No - Immunization History Hx Tetanus Toxoid Vaccination: No Hx Influenza Vaccination: Yes Hx Pneumococcal Vaccination: Yes Review Of Systems Constitutional: Positive for: Fever. Negative for: Chills, Sweats Eyes: Negative for: Vision Change Cardiovascular: Positive for: Chest Pain. Negative for: Palpitations, Edema Respiratory: Negative for: Shortness of Breath Gastrointestinal: Negative for: Nausea, Vomiting Musculoskeletal: Negative for: Back Pain, Leg Pain Neurological: Negative for: Weakness, Numbness, Headache, Dizziness Physical Exam - Physical Exam Appears: Non-toxic, No Acute Distress Skin: Normal Color, Warm, No Diaphoretic Head: Atraumatic, Normacephalic Eye(s): bilateral: Normal Inspection, PERRL, EOMI Oral Mucosa: Moist Neck: Normal ROM Chest: Symmetrical, No Tenderness Cardiovascular: Rhythm Regular, Other (Tachycardic, Normal S1,S2) Respiratory: Decreased Breath Sounds, Rales (at the right base), No Rhonchi, No Wheezing Gastrointestinal/Abdominal: Soft, No Tenderness, No Distention Extremity: Bilateral: Atraumatic, No Pedal Edema, Normal Color And Temperature Pulses: Left Dorsalis Pedis: Normal, Right Dorsalis Pedis: Normal Neurological/Psych: Oriented x3, Normal Speech Gait: Steady ED Course And Treatment - Laboratory Results Result Diagrams: 03/14/19 11:45 03/14/19 11:45 Lab Results: PT 13.2 SECONDS (9.7-12.2) H 03/14/19 11:45 INR 1.2 03/14/19 11:45 APTT 48.0 SECONDS (21-34) H 03/14/19 11:45 Troponin I 0.0570 ng/mL (0.00-0.120) 03/14/19 11:45 NT-Pro-B Natriuret Pep 565 pg/mL (0-900) 03/14/19 11:45 Total Bilirubin 0.9 mg/dL (0.2-1.3) 03/14/19 11:45 AST 34 U/L (17-59) 03/14/19 11:45 ALT 33 U/L (21-72) 03/14/19 11:45 Alkaline Phosphatase 71 U/L (38-126) 03/14/19 11:45 Total Protein 6.7 g/dL (6.3-8.3) 03/14/19 11:45 Albumin 4.0 g/dL (3.5-5.0) 03/14/19 11:45 Globulin 2.7 gm/dL (2.2-3.9) 03/14/19 11:45 Albumin/Globulin Ratio 1.5 (1.0-2.1) 03/14/19 11:45 ECG: Interpreted By [place] ECG Rhythm: Sinus Tachycardia Interpretation Of ECG: Normal axis, Normal intervals, No acute ST/T changes Rate From EC O2 Sat by Pulse Oximetry: 92 (on RA) Pulse Ox Interpretation: Abnormal - Other Rad CXR X-Ray: Read By Radiologist Interpretation: Accession No. : [id number]. Patient Name / ID : MIHAELA YE / [id number]. Exam Date : 03/14/2019 11:26:12 ( Approved ). Study Comment : Sex / Age : M / 78Y. Creator : Radha Puente MD. Dictator : Radha Puente MD. Deblocker : Database Design Analyst : Radha Puente MD. Approver2 : Report Date : 03/14/2019 12:05:14. My Comment : . Date of service: 03/14/2019. PROCEDURE: CHEST RADIOGRAPH, 1 VIEW. HISTORY: chest pain. COMPARISON: 01/01/2019. FINDINGS: LUNGS: The lungs are well inflated and clear. PLEURA: No pneumothorax or pleural effusion. CARDIOVASCULAR: There is mild cardiomegaly. Status post CABG. No aortic atherosclerotic calcifications present. OSSEOUS STRUCTURES: Within normal limits for the patient's age. VISUALIZED UPPER ABDOMEN: Normal. OTHER FINDINGS: None. IMPRESSION: No active pulmonary disease. - CT Scan/US CTA Chest Other Rad Studies (CT/US): Read By Radiologist, Radiology Report Reviewed CT/US Interpretation: Accession No. : [id number]. Patient Name / ID : MIHAELA YE / [id number]. Exam Date : 03/14/2019 14:25:54 ( Approved ). Tony ventura Comment : Sex / Age : M / 78Y. Creator : Marissa Perdue MD. Dictator : Marissa Perdue MD. Deblocker : Database Design Analyst : Marissa Perdue MD. Approver2 : Report Date : 03/14/2019 15:01:29. My Comment : . Date of service: 03/14/2019. PROCEDURE: CT Chest with contrast (Pulmonary Angiogram). HISTORY: SOB. COMPARISON: Comparison is made to the previous study dated 01/01/2019. TECHNIQUE: Axial computed tomography images were obtained of the chest in the pulmonary arterial phase of enhancement. Coronal and sagittal reformatted images were created and reviewed. Intravenous contrast dose: 100 mL of Visipaque 320 intravenously. Radiation dose: Total exam DLP = 622.94 mGy-cm. This CT exam was performed using one or more of the following dose reduction techniques: Automated exposure control, adjustment of the mA and/or kV according to patient size, and/or use of iterative reconstr uction technique. FINDINGS: The study is suboptimal. The peripheral subsegmental pulmonary arteries are not well opacified in this study. PULMONARY ARTERIES: No evidence of central pulmonary embolus. The assessment of the peripheral subsegmental and some of the segmental arteries is somewhat limited in this study. AORTA: No acute findings. No thoracic aortic aneurysm. Atherosclerotic disease and foci of mural thickening and calcification noted. LUNGS: Mild pulmonary vascular congestion noted.. Again noted is focal opacity at the peripheral aspect of the lingula likely represents scar tissue. No new nodule, mass or pulmonary consolidation. PLEURAL SPACES: Unremarkable. No effusion or pneumothorax. HEART: Mild cardiomegaly is again noted. Coronary artery calcification is again noted. No significant pericardial effusion. LYMPH NODES: No lymphadenopathy. BONES, CHEST WALL: Unremarkable. No fracture or destructive lesion. OTHER FINDINGS: There is a heterogeneous solid nodule extending from the lower pole of the left thyroid nodule to the thoracic inlet measures 2 centimeter in the transverse diameter. Again noted is low- attenuation lesion to the left of the upper abdominal aorta measures 5.3 by 3.5 centimeter of indeterminate etiology. IMPRESSION: Suboptimal study. No evidence of central pulmonary embolus. The assessment of the subsegmental pulmonary arteries is limited in this study. Mild cardiomegaly and mild pulmonary vascular congestion. Additional findings are stable compared to the prior study. Medical Decision Making Medical Decision Making: Impression: Chest Pain Initial Plan: - EKG - Chest x-ray - Labs w/ cardiac enzymes - 975 mg PO Tylenol - 162 mg PO ASA - Reassess 12:14 Negative work-up so far, including trop and BNP. Due to history of DVT, will obtain CTA Chest to rule out PE Also added on VBG. 15:05 CT Angio is negative for central PE. 15:[address] Madison, who accepts patient for observation of chest pain. Dr. Madison states patient was admitted at outside hospital 2 weeks ago for TIA. Plan abx given recent onset of cough, fever, cbc w/left shift and 7%ba ndemia. Disposition Counseled Patient/Family Regarding: Studies Performed, Diagnosis - Disposition Disposition: HOSPITALIZED Disposition Time: 15:11 Condition: STABLE - POA Present On Arrival: None - Clinical Impression Clinical Impression: Chest pain - Scribe Statement The provider has reviewed the documentation as recorded by the Max Chavarria Provider Attestation: All medical record entries made by the Max were at my direction and personally dictated by me. I have reviewed the chart and agree that the record accurately reflects my personal performance of the history, physical exam, medical decision making, and the department course for this patient. I have also personally directed, reviewed, and agree with the discharge instructions and disposition.
[2019-03-14 12:39] LABS: BANDS 7 % (0-2); LYMPHOCYTE 2 % (20-40); MONOCYTE 2 % (0-10); NEUTROPHIL 89 % (50-75); NUCLEATED RED BLOOD CELL 1 % (0-0); PLATELET ESTIMATE NORMAL (NORMAL); TOTAL CELLS COUNTED 100
[2019-03-14 13:43] LABS: VENOUS BLOOD GAS BASE EXCESS -0.4 mmol/L (0.0-2.0); VENOUS BLOOD GAS PCO2 48 mmHg (40-60); VENOUS BLOOD GAS PO2 50 mm/Hg (30-55); VENOUS BLOOD PH 7.34 (7.32-7.43)
[2019-03-14] MEDS ORDERED: Iodixanol 320 MG/ML 100 ML BOTTLE IV ONE (14:23)
[2019-03-14 14:33] LABS: URINE BILIRUBIN NEGATIVE (NEGATIVE); URINE BLOOD NEGATIVE (NEGATIVE); URINE CLARITY Clear (Clear); URINE COLOR Yellow (YELLOW); URINE GLUCOSE (UA) NORMAL (Normal); URINE LEUKOCYTE ESTERASE NEG Leu/uL (Negative); URINE PROTEIN 2+ mg/dL (NEGATIVE)
--- NOTE | 2019-03-14 15:05 | CT ---
Date of service: 03/14/2019 PROCEDURE: CT Chest with contrast (Pulmonary Angiogram) HISTORY: SOB COMPARISON: Comparison is made to the previous study dated 01/01/2019 TECHNIQUE: Axial computed tomography images were obtained of the chest in the pulmonary arterial phase of enhancement. Coronal and sagittal reformatted images were created and reviewed. Intravenous contrast dose: 100 mL of Visipaque 320 intravenously Radiation dose: Total exam DLP = 622.94 mGy-cm. This CT exam was performed using one or more of the following dose reduction techniques: Automated exposure control, adjustment of the mA and/or kV according to patient size, and/or use of iterative reconstruction technique. FINDINGS: The study is suboptimal. The peripheral subsegmental pulmonary arteries are not well opacified in this study. PULMONARY ARTERIES: No evidence of central pulmonary embolus. The assessment of the peripheral subsegmental and some of the segmental arteries is somewhat limited in this study. AORTA: No acute findings. No thoracic aortic aneurysm. Atherosclerotic disease and foci of mural thickening and calcification noted. LUNGS: Mild pulmonary vascular congestion noted.. Again noted is focal opacity at the peripheral aspect of the lingula likely represents scar tissue. No new nodule, mass or pulmonary consolidation. PLEURAL SPACES: Unremarkable. No effusion or pneumothorax. HEART: Mild cardiomegaly is again noted. Coronary artery calcification is again noted. No significant pericardial effusion. LYMPH NODES: No lymphadenopathy. BONES, CHEST WALL: Unremarkable. No fracture or destructive lesion OTHER FINDINGS: There is a heterogeneous solid nodule extending from the lower pole of the left thyroid nodule to the thoracic inlet measures 2 centimeter in the transverse diameter. Again noted is low-attenuation lesion to the left of the upper abdominal aorta measures 5.3 by 3.5 centimeter of indeterminate etiology. IMPRESSION: Suboptimal study. No evidence of central pulmonary embolus. The assessment of the subsegmental pulmonary arteries is limited in this study. Mild cardiomegaly and mild pulmonary vascular congestion. Additional findings are stable compared to the prior study.
[2019-03-14] MEDS ORDERED: Piperacill/Tazo 3.375gm in Dex 3.375 GM/50 ML BAG IV STA (15:30)
[2019-03-14] MEDS ORDERED: Piperacillin/Tazobact 3.375 gm 100 ML IVPB ONE (15:56)
--- NOTE | 2019-03-14 17:07 | CP.PCM.HP ---
Past Patient History - Infectious Disease Hx of Infectious Diseases: None - Past Medical History & Family History Past Medical History?: Yes - Past Social History Smoking Status: Never Smoked - CARDIAC Hx Congestive Heart Failure: Yes Hx Hypercholesterolemia: Yes Hx Hypertension: Yes - PULMONARY Hx Bronchitis: Yes - NEUROLOGICAL HX Cerebrovascular Accident: Yes - HEENT Hx HEENT Problems: No - RENAL Hx Chronic Kidney Disease: No - ENDOCRINE/METABOLIC Hx Diabetes Mellitus Type 2: Yes - HEMATOLOGICAL/ONCOLOGICAL Hx Blood Disorders: Yes Hx Blood Transfusions: Yes Hx Blood Transfusion Reaction: No - INTEGUMENTARY Hx Dermatological Problems: No - MUSCULOSKELETAL/RHEUMATOLOGICAL Hx Arthritis: Yes - GASTROINTESTINAL Hx Gastrointestinal Disorders: Yes - GENITOURINARY/GYNECOLOGICAL Hx Genitourinary Disorders: No - PSYCHIATRIC Hx Substance Use: No - SURGICAL HISTORY Hx Appendectomy: Yes (2017) Hx Cholecystectomy: Yes Hx Coronary Artery Bypass Graft: Yes (2011) - ANESTHESIA Hx Anesthesia: Yes Hx Anesthesia Reactions: No Hx Malignant Hyperthermia: No Meds Allergies/Adverse Reactions: Allergies Allergy/AdvReac Type Severity Reaction Status Date / Time No Known Allergies Allergy Verified 01/01/19 15:24 Results - Vital Signs Recent Vital Signs: Last Vital Signs Temp 99.9 F H 03/14/19 14:46 Pulse 101 H 03/14/19 14:46 Resp 27 H 03/14/19 14:46 BP 119/62 03/14/19 14:46 Pulse Ox 92 L 03/14/19 16:05 - Labs Result Diagrams: 03/14/19 11:45 03/14/19 11:45 Labs: Laboratory Results - last 24 hr 03/14/19 03/14/19 03/14/19 11:02 11:45 11:45 WBC 7.7 RBC 3.90 L Hgb 12.3 Hct 36.1 MCV 92.5 MCH 31.4 H MCHC 34.0 RDW 13.4 Plt Count 139 MPV 7.9 Neut % (Auto) 95.9 H Lymph % (Auto) 2.3 L [place] % (Auto) 1.0 Eos % (Auto) 0.2 Baso % (Auto) 0.6 Neut # (Auto) 7.4 H Lymph # (Auto) 0.2 L [place] # (Auto) 0.1 Eos # (Auto) 0.0 Baso # (Auto) 0.0 Neutrophils % (Manual) 89 H Band Neutrophils % 7 H Lymphocytes % (Manual) 2 L Monocytes % (Manual) 2 Nucleated RBC % 1 H Platelet Estimate Normal RBC Morphology Normal PT 13.2 H INR 1.2 APTT 48.0 H pO2 VBG pH VBG pCO2 VBG HCO3 VBG Total CO2 VBG O2 Sat (Calc) VBG Base Excess VBG Potassium Glucose Lactate Sodium Potassium Chloride Carbon Dioxide Anion Gap BUN Creatinine Est GFR ( Amer) Est GFR (Non-Af Amer) POC Glucose (mg/dL) 154 H Random Glucose Calcium Total Bilirubin AST ALT Alkaline Phosphatase Troponin I NT-Pro-B Natriuret Pep Total Protein Albumin Globulin Albumin/Globulin Ratio Venous Blood Potassium Urine Color Urine Clarity Urine pH Ur Specific [place] Urine Protein Urine Glucose (UA) Urine Ketones Urine Blood Urine Nitrate Urine Bilirubin Urine Urobilinogen Ur Leukocyte Esterase Urine WBC (Auto) Urine RBC (Auto) 03/14/19 03/14/19 03/14/19 11:45 13:25 14:26 WBC RBC Hgb Hct MCV MCH MCHC RDW Plt Count MPV Neut % (Auto) Lymph % (Auto) [place] % (Auto) Eos % (Auto) Baso % (Auto) Neut # (Auto) Lymph # (Auto) [place] # (Auto) Eos # (Auto) Baso # (Auto) Neutrophils % (Manual) Band Neutrophils % Lymphocytes % (Manual) Monocytes % (Manual) Nucleated RBC % Platelet Estimate RBC Morphology PT INR APTT pO2 50 VBG pH 7.34 VBG pCO2 48 VBG HCO3 24.2 VBG Total CO2 27.4 VBG O2 Sat (Calc) 85.8 H VBG Base Excess -0.4 L VBG Potassium 3.9 Glucose 138 H Lactate 1.9 Sodium 142 140.0 Potassium 4.3 Chloride 104 104.0 Carbon Dioxide 27 Anion Gap 15 BUN 26 H Creatinine 1.3 Est GFR ( Amer) > 60 Est GFR (Non-Af Amer) 54 POC Glucose (mg/dL) Random Glucose 158 H Calcium 9.3 Total Bilirubin 0.9 AST 34 ALT 33 Alkaline Phosphatase 71 Troponin I 0.0570 NT-Pro-B Natriuret Pep 565 Total Protein 6.7 Albumin 4.0 Globulin 2.7 Albumin/Globulin Ratio 1.5 Venous Blood Potassium 3.9 Urine Color Yellow Urine Clarity Clear Urine pH 5.0 Ur Specific [place] 1.016 Urine Protein 2+ H Urine Glucose (UA) Normal Urine Ketones Negative Urine Blood Negative Urine Nitrate Negative Urine Bilirubin Negative Urine Urobilinogen 2.0 Ur Leukocyte Esterase Neg Urine WBC (Auto) 2 Urine RBC (Auto) < 1
[2019-03-14] MEDS: Calcium Carbonate 500 mg Chewable Antacid Tab PO SCH (18:45)
[2019-03-14] MEDS: Piperacill/Tazo 3.375gm in Dex 3.375 GM/50 ML BAG IVPB SCH (21:48)
--- NOTE | 2019-03-15 00:28 | CP.PCM.CON ---
History of Present Illness - History of Present Illness History of Present Illness: CC: Chest Pain 78 year old male with PMHx of diabetes, CHF, CAD, HTN, s/p CABG, presents to the ED complaining of left-sided chest pain since 8:00am this morning. Pain is described as constant and radiating into his left arm. Patient has also been coughing for the past few days. He reports chills, onset today. At present patient denies having any chest pain. He took 1x 81mg ASA prior to arrival. No recent travel. Patient denies any dizziness, SOB, syncope, leg pain, or edema. Time Seen by Provider: 03/14/19 11:19 Chief Complaint (Nursing): Chest Pain History Per: Patient History/Exam Limitations: no limitations Onset/Duration Of Symptoms: Hrs Current Symptoms Are (Timing): Gone Alleviating Factors: Other (Aspirin) Past Medical History Reviewed: Historical Data, Nursing Documentation, Vital Signs Vital Signs: Last Vital Signs Temp 100.4 F H 03/14/19 11:09 Pulse 95 H 03/14/19 11:21 Resp 26 H 03/14/19 11:21 BP 171/73 H 03/14/19 11:21 Pulse Ox 92 L 03/14/19 11:21 Primary Care Provider: Kojo [place]ri[place] Medical History PMH: Arthritis, Bronchitis, CAD, CHF, CVA, Diabetes, Deep Vein Thrombosis (Bilateral DVT, on Eliquis), HTN, Hypercholesterolemia Denies: Chronic Kidney Disease Surgical History: Appendectomy (2018), CABG (2011), Cholecystectomy - [facility] Procedures ASSISTANCE WITH RESPIRATORY VENTILATION, 24-96 HRS, CPAP (10/23/18) ASSISTANCE WITH RESPIRATORY VENTILATION, <24 HRS, CPAP (10/23/18) DRAINAGE OF GALLBLADDER WITH DRAINAGE DEVICE, PERC APPROACH (05/10/17) ENDO EXCISION/DEST OF LESION OR TISSUE OF STOMACH (12/31/14) FLUOROSCOPY OF L INT MAMM GRAFT USING L OSM CONTRAST (01/01/19) FLUOROSCOPY OF LEFT HEART USING LOW OSMOLAR CONTRAST (01/01/19) FLUOROSCOPY OF MULT COR ART USING L OSM CONTRAST (01/01/19) INSERTION OF ENDOTRACHEAL AIRWAY INTO TRACHEA, VIA OPENING (10/23/18) MEASURE OF CARDIAC SAMPL & PRESSURE, L HEART, PERC APPROACH (01/01/19) RESPIRATORY VENTILATION, 24-96 CONSECUTIVE HOURS (10/23/18) ULTRASONOGRAPHY OF RIGHT AND LEFT HEART, TRANSESOPHAGEAL (05/10/17) Family History: States: Unknown Family Hx - Social History Hx Tobacco Use: No Hx Alcohol Use: No Hx Substance Use: No - Immunization History Hx Tetanus Toxoid Vaccination: No Hx Influenza Vaccination: Yes Hx Pneumococcal Vaccination: Yes Review Of Systems Constitutional: Positive for: Fever. Negative for: Chills, Sweats Eyes: Negative for: Vision Change Cardiovascular: Positive for: Chest Pain. Negative for: Palpitations, Edema Respiratory: Negative for: Shortness of Breath Gastrointestinal: Negative for: Nausea, Vomiting Musculoskeletal: Negative for: Back Pain, Leg Pain Neurological: Negative for: Weakness, Numbness, Headache, Dizziness Physical Exam - Physical Exam Appears: Non-toxic, No Acute Distress Skin: Normal Color, Warm, No Diaphoretic Head: Atraumatic, Normacephalic Eye(s): bilateral: Normal Inspection, PERRL, EOMI Oral Mucosa: Moist Neck: Normal ROM Chest: Symmetrical, No Tenderness Cardiovascular: Rhythm Regular, Other (Tachycardic, Normal S1,S2) Respiratory: Decreased Breath Sounds, Rales (at the right base), No Rhonchi, No Wheezing Gastrointestinal/Abdominal: Soft, No Tenderness, No Distention Extremity: Bilateral: Atraumatic, No Pedal Edema, Normal Color And Temperature Pulses: Left Dorsalis Pedis: Normal, Right Dorsalis Pedis: Normal Neurological/Psych: Oriented x3, Normal Speech Gait: Steady Past Patient History - Infectious Disease Hx of Infectious Diseases: None - Past Medical History & Family History Past Medical History?: Yes - Past Social History Smoking Status: Never Smoked - CARDIAC Hx Congestive Heart Failure: Yes Hx Hypercholesterolemia: Yes Hx Hypertension: Yes - PULMONARY Hx Bronchitis: Yes - NEUROLOGICAL HX Cerebrovascular Accident: Yes - HEENT Hx HEENT Problems: No - RENAL Hx Chronic Kidney Disease: No - ENDOCRINE/METABOLIC Hx Diabetes Mellitus Type 2: Yes - HEMATOLOGICAL/ONCOLOGICAL Hx Blood Disorders: Yes Hx Blood Transfusions: Yes Hx Blood Transfusion Reaction: No - INTEGUMENTARY Hx Dermatological Problems: No - MUSCULOSKELETAL/RHEUMATOLOGICAL Hx Arthritis: Yes - GASTROINTESTINAL Hx Gastrointestinal Disorders: Yes - GENITOURINARY/GYNECOLOGICAL Hx Genitourinary Disorders: No - PSYCHIATRIC Hx Substance Use: No - SURGICAL HISTORY Hx Appendectomy: Yes (2017) Hx Cholecystectomy: Yes Hx Coronary Artery Bypass Graft: Yes (2011) - ANESTHESIA Hx Anesthesia: Yes Hx Anesthesia Reactions: No Hx Malignant Hyperthermia: No Meds Allergies/Adverse Reactions: Allergies Allergy/AdvReac Type Severity Reaction Status Date / Time No Known Allergies Allergy Verified 01/01/19 15:24 - Medications Medications: Current Medications Amlodipine Besylate (Norvasc) 10 mg PO DAILY [facility] Apixaban (Eliquis) 5 mg PO BID [facility] Last Admin: 03/14/19 18:45 Dose: 5 mg Aspirin (Aspirin Chewable) 81 mg PO DAILY [facility] Calcium Carbonate (Tums) 500 mg PO BID [facility] Last Admin: 03/14/19 18:45 Dose: Not Given Glimepiride (Amaryl) 4 mg PO DAILY [facility] Hydrochlorothiazide (Hydrodiuril) 25 mg PO DAILY [facility] Piperacillin Sod/Tazobactam Sod (Zosyn 3.375 Gm Iv Premix) 3.375 gm in 50 mls @ 100 mls/hr IVPB Q6H [facility]; Protocol Last Admin: 03/14/19 21:48 Dose: 100 mls/hr Losartan Potassium (Cozaar) 25 mg PO DAILY [facility] Metoprolol Succinate (Toprol Xl) 100 mg PO DAILY [facility] Rosuvastatin Calcium (Crestor) 10 mg PO HS [facility] Last Admin: 03/14/19 21:47 Dose: 10 mg Results - Vital Signs Recent Vital Signs: Last Vital Signs Temp 98.6 F 03/14/19 18:00 Pulse 87 03/14/19 18:00 Resp 22 03/14/19 18:00 BP 136/72 03/14/19 18:00 Pulse Ox 98 03/14/19 19:00 - Labs Result Diagrams: 03/14/19 11:45 03/14/19 11:45 Labs: Laboratory Results - last 24 hr 03/14/19 03/14/19 03/14/19 11:02 11:45 11:45 WBC 7.7 RBC 3.90 L Hgb 12.3 Hct 36.1 MCV 92.5 MCH 31.4 H MCHC 34.0 RDW 13.4 Plt Count 139 MPV 7.9 Neut % (Auto) 95.9 H Lymph % (Auto) 2.3 L [place] % (Auto) 1.0 Eos % (Auto) 0.2 Baso % (Auto) 0.6 Neut # (Auto) 7.4 H Lymph # (Auto) 0.2 L [place] # (Auto) 0.1 Eos # (Auto) 0.0 Baso # (Auto) 0.0 Neutrophils % (Manual) 89 H Band Neutrophils % 7 H Lymphocytes % (Manual) 2 L Monocytes % (Manual) 2 Nucleated RBC % 1 H Platelet Estimate Normal RBC Morphology Normal PT 13.2 H INR 1.2 APTT 48.0 H pO2 VBG pH VBG pCO2 VBG HCO3 VBG Total CO2 VBG O2 Sat (Calc) VBG Base Excess VBG Potassium Glucose Lactate Sodium Potassium Chloride Carbon Dioxide Anion Gap BUN Creatinine Est GFR ( Amer) Est GFR (Non-Af Amer) POC Glucose (mg/dL) 154 H Random Glucose Calcium Total Bilirubin AST ALT Alkaline Phosphatase Troponin I NT-Pro-B Natriuret Pep Total Protein Albumin Globulin Albumin/Globulin Ratio Venous Blood Potassium Urine Color Urine Clarity Urine pH Ur Specific [place] Urine Protein Urine Glucose (UA) Urine Ketones Urine Blood Urine Nitrate Urine Bilirubin Urine Urobilinogen Ur Leukocyte Esterase Urine WBC (Auto) Urine RBC (Auto) Influenza Typ A,B (EIA) 03/14/19 03/14/19 03/14/19 11:45 13:25 14:26 WBC RBC Hgb Hct MCV MCH MCHC RDW Plt Count MPV Neut % (Auto) Lymph % (Auto) [place] % (Auto) Eos % (Auto) Baso % (Auto) Neut # (Auto) Lymph # (Auto) [place] # (Auto) Eos # (Auto) Baso # (Auto) Neutrophils % (Manual) Band Neutrophils % Lymphocytes % (Manual) Monocytes % (Manual) Nucleated RBC % Platelet Estimate RBC Morphology PT INR APTT pO2 50 VBG pH 7.34 VBG pCO2 48 VBG HCO3 24.2 VBG Total CO2 27.4 VBG O2 Sat (Calc) 85.8 H VBG Base Excess -0.4 L VBG Potassium 3.9 Glucose 138 H Lactate 1.9 Sodium 142 140.0 Potassium 4.3 Chloride 104 104.0 Carbon Dioxide 27 Anion Gap 15 BUN 26 H Creatinine 1.3 Est GFR ( Amer) > 60 Est GFR (Non-Af Amer) 54 POC Glucose (mg/dL) Random Glucose 158 H Calcium 9.3 Total Bilirubin 0.9 AST 34 ALT 33 Alkaline Phosphatase 71 Troponin I 0.0570 NT-Pro-B Natriuret Pep 565 Total Protein 6.7 Albumin 4.0 Globulin 2.7 Albumin/Globulin Ratio 1.5 Venous Blood Potassium 3.9 Urine Color Yellow Urine Clarity Clear Urine pH 5.0 Ur Specific [place] 1.016 Urine Protein 2+ H Urine Glucose (UA) Normal Urine Ketones Negative Urine Blood Negative Urine Nitrate Negative Urine Bilirubin Negative Urine Urobilinogen 2.0 Ur Leukocyte Esterase Neg Urine WBC (Auto) 2 Urine RBC (Auto) < 1 Influenza Typ A,B (EIA) 03/14/19 03/14/19 19:39 20:40 WBC RBC Hgb Hct MCV MCH MCHC RDW Plt Count MPV Neut % (Auto) Lymph % (Auto) [place] % (Auto) Eos % (Auto) Baso % (Auto) Neut # (Auto) Lymph # (Auto) [place] # (Auto) Eos # (Auto) Baso # (Auto) Neutrophils % (Manual) Band Neutrophils % Lymphocytes % (Manual) Monocytes % (Manual) Nucleated RBC % Platelet Estimate RBC Morphology PT INR APTT pO2 VBG pH VBG pCO2 VBG HCO3 VBG Total CO2 VBG O2 Sat (Calc) VBG Base Excess VBG Potassium Glucose Lactate Sodium Potassium Chloride Carbon Dioxide Anion Gap BUN Creatinine Est GFR ( Amer) Est GFR (Non-Af Amer) POC Glucose (mg/dL) Random Glucose Calcium Total Bilirubin AST ALT Alkaline Phosphatase Troponin I 0.1110 NT-Pro-B Natriuret Pep Total Protein Albumin Globulin Albumin/Globulin Ratio Venous Blood Potassium Urine Color Urine Clarity Urine pH Ur Specific [place] Urine Protein Urine Glucose (UA) Urine Ketones Urine Blood Urine Nitrate Urine Bilirubin Urine Urobilinogen Ur Leukocyte Esterase Urine WBC (Auto) Urine RBC (Auto) Influenza Typ A,B (EIA) Negative for flu a/b Assessment & Plan - Assessment and Plan (Free Text) Assessment: 78 M with hx of CABG, HTN, CKD on HD admitted for chest pain Trop x 2 negative Recent cath 12/2018: Patent grafts, Normal Ef Will follow
[2019-03-15 01:21] VITALS: RESP 20
[2019-03-15] MEDS: Piperacill/Tazo 3.375gm in Dex 3.375 GM/50 ML BAG IVPB SCH ×4 (04:30→22:06)
[2019-03-15] MEDS: Metoprolol Succinate 100 mg XL Tab PO SCH (10:06)
[2019-03-15] MEDS: Calcium Carbonate 500 mg Chewable Antacid Tab PO SCH ×2 (12:05→17:43)
--- NOTE | 2019-03-15 12:13 | CT ---
Date of service: 03/15/2019 PROCEDURE: CT Abdomen and Pelvis without intravenous contrast HISTORY: (+) Gram negative Blood B/C one bottle anaerobic. COMPARISON: Comparison is made to the previous study dated 10/26/2018 TECHNIQUE: Axial and reformatted coronal and sagittal CT images of the abdomen and pelvis were obtained without IV or oral contrast administration.. Contrast dose: 0. The patient had the CTA of the chest done on 03/14/2019 at 14:25 Radiation dose: Total exam DLP = 1355.96 mGy-cm. This CT exam was performed using one or more of the following dose reduction techniques: Automated exposure control, adjustment of the mA and/or kV according to patient size, and/or use of iterative reconstruction technique. FINDINGS: LOWER THORAX: No evidence of acute pathology. LIVER: Mild hepatomegaly without evidence of acute pathology or suspicious mass. GALLBLADDER AND BILE DUCTS: Status post cholecystectomy. PANCREAS: Unremarkable. No gross lesion or ductal dilatation. SPLEEN: Unremarkable. ADRENALS: Unremarkable. No mass. KIDNEYS AND URETERS: No evidence of obstructing renal calculi or hydronephrosis. Again noted is linear calcification at the right kidney. VASCULATURE: Unremarkable. No aortic aneurysm. Diffuse atherosclerotic calcification in the abdominal aorta and iliac arteries again noted. BOWEL: Unremarkable. No obstruction. No gross mural thickening. Scattered colonic diverticulosis are noted without evidence of diverticulitis. APPENDIX: There are inflammatory changes surrounding the enlarged appendix suspicious for acute appendicitis. Please correlate clinically. PERITONEUM: Unremarkable. No free fluid. No free air. LYMPH NODES: Unremarkable. No enlarged lymph nodes. BLADDER: The urinary bladder is displaced anteriorly by enlarged prostate. Circumferential urinary bladder wall thickening is noted. REPRODUCTIVE: The prostate is moderately to markedly enlarged. BONES: No acute fracture. OTHER FINDINGS: None. IMPRESSION: Inflammatory changes and fat stranding surrounding mildly enlarged appendix. Correlate clinically for acute appendicitis. No CT evidence of pancreatitis. No evidence of enteritis or colitis. Markedly enlarged prostate. Urinary bladder wall thickening. The above findings were reported to the nurse taking care of the patient at [address] [place]
--- NOTE | 2019-03-15 14:17 | CP.PCM.PN ---
Subjective - Date & Time of Evaluation Date of Evaluation: 03/15/19 Time of Evaluation: 14:16 Objective - Vital Signs/Intake and Output Vital Signs (last 24 hours): Temp Pulse Resp BP Pulse Ox 97.8 F 95 H 20 182/89 H 96 03/15/19 07:00 03/15/19 07:00 03/15/19 07:00 03/15/19 07:00 03/15/19 07:00 Intake and Output: 03/15/19 03/15/19 06:59 18:59 Output Total 150 Balance -150 - Medications Medications: Current Medications Amlodipine Besylate (Norvasc) 10 mg PO DAILY [facility] Last Admin: 03/15/19 10:06 Dose: 10 mg Apixaban (Eliquis) 5 mg PO BID [facility] Last Admin: 03/15/19 10:06 Dose: 5 mg Aspirin (Aspirin Chewable) 81 mg PO DAILY [facility] Last Admin: 03/15/19 10:06 Dose: 81 mg Calcium Carbonate (Tums) 500 mg PO BID [facility] Last Admin: 03/15/19 12:05 Dose: 500 mg Glimepiride (Amaryl) 4 mg PO DAILY [facility] Last Admin: 03/15/19 10:06 Dose: 4 mg Hydrochlorothiazide (Hydrodiuril) 25 mg PO DAILY [facility] Last Admin: 03/15/19 10:05 Dose: 25 mg Piperacillin Sod/Tazobactam Sod (Zosyn 3.375 Gm Iv Premix) 3.375 gm in 50 mls @ 100 mls/hr IVPB Q6H [facility]; Protocol Last Admin: 03/15/19 10:05 Dose: 100 mls/hr Losartan Potassium (Cozaar) 25 mg PO DAILY [facility] Last Admin: 03/15/19 10:06 Dose: 25 mg Metoprolol Succinate (Toprol Xl) 100 mg PO DAILY [facility] Last Admin: 03/15/19 10:06 Dose: 100 mg Rosuvastatin Calcium (Crestor) 10 mg PO HS [facility] Last Admin: 03/14/19 21:47 Dose: 10 mg - Labs Labs: 03/14/19 11:45 03/14/19 11:45 PT 13.2 SECONDS (9.7-12.2) H 03/14/19 11:45 INR 1.2 03/14/19 11:45 APTT 48.0 SECONDS (21-34) H 03/14/19 11:45
--- NOTE | 2019-03-15 14:25 | CARD ---
APPROVED REPORT Date of service: 03/14/2019 EKG Measurement Heart [id number] <Conclusion> Sinus tachycardia Otherwise normal ECG
[2019-03-15 17:29] LABS: BASO % 0.2 % (0.0-2.0); EOS % 0.5 % (0.0-4.0); HEMOGLOBIN 12.6 g/dL (12.0-18.0); LYMPH # 0.4 K/uL (1.0-4.3); LYMPH % 4.5 % (20.0-40.0); MEAN CELL VOLUME 92.4 fL (80.0-94.0); MEAN CORPUSCULAR HEMOGLOBIN 30.6 pg (27.0-31.0); MEAN CORPUSCULAR HGB CONC 33.1 g/dL (33.0-37.0); MEAN PLATELET VOLUME 7.5 fL (7.2-11.7); MONO # 0.8 K/uL (0.0-0.8); NEUT # 8.1 K/uL (1.8-7.0); NEUT % 85.8 % (50.0-75.0); PLATELET COUNT 108 K/uL (130-400); RBC 4.11 Mil/uL (4.40-5.90); RED CELL DISTRIBUTION WIDTH 13.6 % (11.5-14.5); WHITE BLOOD COUNT 9.4 K/uL (4.8-10.8)
--- NOTE | 2019-03-15 17:29 | CP.PCM.PN ---
Subjective - Date & Time of Evaluation Date of Evaluation: 03/15/19 Time of Evaluation: 17:23 - Subjective Subjective: General surgery consult note for Dr. Marisela Ortega, PGY-2 Pt seen/examined at bedside 78M w/PMH sig for DM, HTN, CAD, CHF, and recent TIA consulted for possible appendicitis. Pt currently sitting comfortably in chair. Pt originally admitted to hospital for chest pain x 1 day. Pt reports CP has resolved, was having RLQ abdominal pain- intermittent, mild, non radiating, worse with coughing. Reports daily BM of 2-3x daily, last BM was on day prior to evaluation. Denies F & C, N & V, dysuria, hematuria, hematemesis, diarrhea, urinary changes, other complaints. CT A/P with fat stranding, mild dilation of appendix, no appendicolith. No leukocytosis on labs from 03/14, febrile one day prior to evaluation 100.4. PMH: DM, HTN, CAD, CHF, recent TIA PSH: CABG, PCI (12/2018), cholecystectomy w/IOC (2016) All: NKDA SH: Remote hx of tobacco use, no current ETOH or illicit drug use FH: Non contributory Objective - Vital Signs/Intake and Output Vital Signs (last 24 hours): Temp Pulse Resp BP Pulse Ox 97.8 F 87 20 182/89 H 98 03/15/19 07:00 03/15/19 16:00 03/15/19 07:00 03/15/19 07:00 03/15/19 16:00 Intake and Output: 03/15/19 03/15/19 06:59 18:59 Intake Total 400 Output Total 150 Balance -150 400 - Medications Medications: Current Medications Amlodipine Besylate (Norvasc) 10 mg PO DAILY [facility] Last Admin: 03/15/19 10:06 Dose: 10 mg Apixaban (Eliquis) 5 mg PO BID [facility] Last Admin: 03/15/19 10:06 Dose: 5 mg Aspirin (Aspirin Chewable) 81 mg PO DAILY [facility] Last Admin: 03/15/19 10:06 Dose: 81 mg Calcium Carbonate (Tums) 500 mg PO BID [facility] Last Admin: 03/15/19 12:05 Dose: 500 mg Glimepiride (Amaryl) 4 mg PO DAILY [facility] Last Admin: 03/15/19 10:06 Dose: 4 mg Hydrochlorothiazide (Hydrodiuril) 25 mg PO DAILY [facility] Last Admin: 03/15/19 10:05 Dose: 25 mg Piperacillin Sod/Tazobactam Sod (Zosyn 3.375 Gm Iv Premix) 3.375 gm in 50 mls @ 100 mls/hr IVPB Q6H [facility]; Protocol Last Admin: 03/15/19 16:19 Dose: 100 mls/hr Losartan Potassium (Cozaar) 25 mg PO DAILY [facility] Last Admin: 03/15/19 10:06 Dose: 25 mg Metoprolol Succinate (Toprol Xl) 100 mg PO DAILY [facility] Last Admin: 03/15/19 10:06 Dose: 100 mg Rosuvastatin Calcium (Crestor) 10 mg PO HS [facility] Last Admin: 03/14/19 21:47 Dose: 10 mg - Labs Labs: 03/14/19 11:45 03/14/19 11:45 PT 13.2 SECONDS (9.7-12.2) H 03/14/19 11:45 INR 1.2 03/14/19 11:45 APTT 48.0 SECONDS (21-34) H 03/14/19 11:45 - Constitutional Appears: Non-toxic, No Acute Distress - Head Exam Head Exam: ATRAUMATIC, NORMAL INSPECTION, NORMOCEPHALIC - Eye Exam Eye Exam: EOMI, Normal appearance - ENT Exam ENT Exam: Mucous Membranes Moist, Normal Exam - Respiratory Exam Respiratory Exam: Clear to Ausculation Bilateral, NORMAL BREATHING PATTERN. absent: Rales, Rhonchi, Wheezes, Respiratory Distress - Cardiovascular Exam Cardiovascular Exam: REGULAR RHYTHM, +S1, +S2 - GI/Abdominal Exam GI & Abdominal Exam: Soft, Tenderness (mild, RLQ). absent: Distended (obese), Firm, Guarding, Rigid, Hernia Additional comments: well healed linear scars over RLQ and umbilicus - Extremities Exam Extremities Exam: Normal Inspection - Neurological Exam Neurological Exam: Alert, Awake, CN II-XII Intact, Oriented x3 - Psychiatric Exam Psychiatric exam: Normal Affect, Normal Mood - Skin Skin Exam: Dry, Intact, Normal Color, Warm Assessment and Plan - Assessment and Plan (Free Text) Assessment: 78M w/RLQ abdominal pain- mild, intermittent, non radiating Plan: Recommend bowel regimen FU labs from today Pt currently with benign abdominal exam Further surgical recs pending lab work results DW Dr. Jayme Ortega, PGY-2
[2019-03-15 18:03] LABS: ALB/GLOB RATIO 1.3 (1.0-2.1); CALCIUM 9.5 mg/dl (8.6-10.4)
[2019-03-15 18:04] LABS: BASOPHIL 1 % (0-2); LYMPHOCYTE 5 % (20-40); MONOCYTE 3 % (0-10); NEUTROPHIL 91 % (50-75); PLATELET ESTIMATE DECREASED (NORMAL); TOTAL CELLS COUNTED 100
--- NOTE | 2019-03-15 20:29 | CP.PCM.CON ---
History of Present Illness - History of Present Illness History of Present Illness: 78 year old male with PMHx of diabetes, CHF, CAD, HTN, s/p CABG, presents to the ED complaining of left-sided chest pain and associated chills Patient has also been coughing for the past few days. He reports chills, onset today. CT chest negative Has some abd tenderness - Medical History PMH: Arthritis, Bronchitis, CAD, CHF, CVA, Diabetes, Deep Vein Thrombosis (Bilateral DVT, on Eliquis), HTN, Hypercholesterolemia Denies: Chronic Kidney Disease Surgical History: Appendectomy (2018), CABG (2011), Cholecystectomy - [facility] Procedures ASSISTANCE WITH RESPIRATORY VENTILATION, 24-96 HRS, CPAP (10/23/18) ASSISTANCE WITH RESPIRATORY VENTILATION, <24 HRS, CPAP (10/23/18) DRAINAGE OF GALLBLADDER WITH DRAINAGE DEVICE, PERC APPROACH (05/10/17) ENDO EXCISION/DEST OF LESION OR TISSUE OF STOMACH (12/31/14) FLUOROSCOPY OF L INT MAMM GRAFT USING L OSM CONTRAST (01/01/19) FLUOROSCOPY OF LEFT HEART USING LOW OSMOLAR CONTRAST (01/01/19) FLUOROSCOPY OF MULT COR ART USING L OSM CONTRAST (01/01/19) INSERTION OF ENDOTRACHEAL AIRWAY INTO TRACHEA, VIA OPENING (10/23/18) MEASURE OF CARDIAC SAMPL & PRESSURE, L HEART, PERC APPROACH (01/01/19) RESPIRATORY VENTILATION, 24-96 CONSECUTIVE HOURS (10/23/18) ULTRASONOGRAPHY OF RIGHT AND LEFT HEART, TRANSESOPHAGEAL (05/10/17) Review of Systems - Constitutional Constitutional: As Per HPI - EENT Eyes: absent: As Per HPI, Blind Spots, Blurred Vision, Change in Vision, Decreased Night Vision, Diplopia, Discharge, Dry Eye, Exophthalmos, Floaters, Irritation, Itchy Eyes, Loss of Peripheral Vision, Pain, Photophobia, Requires Corrective Lenses, Sees Flashes, Spots in Vision, Tunnel Vision, Other Visual Disturbances, Loss of Vision, Other Ears: absent: As Per HPI, Decreased Hearing, Ear Discharge, Ear Pain, Tinnitus, Abnormal Hearing, Disequilibrium, Dizziness, Other Nose/Mouth/Throat: absent: As Per HPI, Epistaxis, Nasal Congestion, Nasal Discharge, Nasal Obstruction, Nasal Trauma, Nose Pain, Post Nasal Drip, Sinus Pain, Sinus Pressure, Bleeding Gums, Change in Voice, Dental Pain, Dry Mouth, Dysphagia, Halitosis, Hoarsness, Lip Swelling, Mouth Lesions, Mouth Pain, Odynophagia, Sore Throat, Throat Swelling, Tongue Swelling, Facial Pain, Neck Pain, Neck Mass, Other - Cardiovascular Cardiovascular: As Per HPI, Chest Pain - Respiratory Respiratory: absent: As Per HPI, Cough, Dyspnea, Hemoptysis, Dyspnea on Exertion, Wheezing, Snoring, Stridor, Pain on Inspiration, Chest Congestion, Excessive Mucous Production, Change in Mucous Color, Pain with Coughing, Other - Gastrointestinal Gastrointestinal: As Per HPI, Abdominal Pain - Genitourinary Genitourinary: absent: As Per HPI, Change in Urinary Stream, Difficulty Urinating, Dysuria, Flank Pain, Hematuria, Pyuria, Nocturia, Urinary Incontinence, Urinary Frequency, Urinary Hesitance, Urinary Urgency, Voiding Freq/Small Amts, Freq UTI, Hx Renal/Bladder Calculi, Hx /Renal Surgery, Bladder Distension, Other - Musculoskeletal Musculoskeletal: absent: As Per HPI, Abnormal Gait, Arthralgias, Atrophy, Back Pain, Deformity, Joint Swelling, Limited Range of Motion, Loss of Height, Muscle Cramps, Muscle Weakness, Myalgias, Neck Pain, Numbness, Radiating Pain into Limb, Stiffness, Tingling, Other - Integumentary Integumentary: absent: As Per HPI, Acne, Alopecia, Bleeding Lesions, Change in Hair, Change in Nails, Change in Pigmentation, Changing Lesions, Dry Skin, Erythema, Furuncle, Hirsutism, Lesions, New Lesions, Non-Healing Lesions, Phot osensitivity, Pruritus, Rash, Skin Pain, Skin Ulcer, Sores, Striae, Swelling, Unusual Bruising, Wounds, Jaundice, Other - Neurological Neurological: absent: As Per HPI, Abnormal Gait, Abnormal Hearing, Abnormal Movements, Abnormal Speech, Behavioral Changes, Burning Sensations, Confusion, Convulsions, Disequilibrium, Dizziness, Numbness, Focal Weakness, Frequent Falls, Headaches, Lack of Coordination, Loss of Vision, Memory Loss, Paresthesias, Radicular Pain, Restless Legs, Sensory Deficit, Syncope, Tingling, Tremor, Vertigo, Weakness, Other Visual Disturbances, Other - Psychiatric Psychiatric: absent: As Per HPI, Abnormal Sleep Pattern, Anhedonia, Anxiety, Auditory Hallucinations, Behavioral Changes, Change in Appetite, Change in Libido, Confusion, Depression, Difficulty Concentrating, Hallucinations, Homicidal Ideation, Hopelessness, Irritability, Memory Loss, Mood Swings, Panic Attacks, Paranoia, Suicidal Ideation, Visual Hallucinations, Tactile Hallucinations, Other - Endocrine Endocrine: absent: As Per HPI, Change in Body Appearance, Change in Libido, Cold Intolorance, Deepening of Voice, Excessive Sweating, Fatigue, Flushing, Heat Intolorance, Increase in Ring/Shoe/Hat Size, Palpitations, Polydipsia, Polyphagia, Polyuria, Other - Hematologic/Lymphatic Hematologic: absent: As Per HPI, Easy Bleeding, Easy Bruising, Lymphadenopathy, Other Past Patient History - Infectious Disease Hx of Infectious Diseases: None - Past Medical History & Family History Past Medical History?: Yes - Past Social History Smoking Status: Never Smoked - CARDIAC Hx Congestive Heart Failure: Yes Hx Hypercholesterolemia: Yes Hx Hypertension: Yes - PULMONARY Hx Bronchitis: Yes - NEUROLOGICAL HX Cerebrovascular Accident: Yes - HEENT Hx HEENT Problems: No - RENAL Hx Chronic Kidney Disease: No - ENDOCRINE/METABOLIC Hx Diabetes Mellitus Type 2: Yes - HEMATOLOGICAL/ONCOLOGICAL Hx Blood Disorders: Yes Hx Blood Transfusions: Yes Hx Blood Transfusion Reaction: No - INTEGUMENTARY Hx Dermatological Problems: No - MUSCULOSKELETAL/RHEUMATOLOGICAL Hx Arthritis: Yes - GASTROINTESTINAL Hx Gastrointestinal Disorders: Yes - GENITOURINARY/GYNECOLOGICAL Hx Genitourinary Disorders: No - PSYCHIATRIC Hx Substance Use: No - SURGICAL HISTORY Hx Appendectomy: Yes (2017) Hx Cholecystectomy: Yes Hx Coronary Artery Bypass Graft: Yes (2011) - ANESTHESIA Hx Anesthesia: Yes Hx Anesthesia Reactions: No Hx Malignant Hyperthermia: No Meds Allergies/Adverse Reactions: Allergies Allergy/AdvReac Type Severity Reaction Status Date / Time No Known Allergies Allergy Verified 01/01/19 15:24 - Medications Medications: Current Medications Amlodipine Besylate (Norvasc) 10 mg PO DAILY [facility] Apixaban (Eliquis) 5 mg PO BID [facility] Aspirin (Aspirin Chewable) 81 mg PO DAILY [facility] Calcium Carbonate (Tums) 500 mg PO BID [facility] Glimepiride (Amaryl) 4 mg PO DAILY [facility] Hydrochlorothiazide (Hydrodiuril) 25 mg PO DAILY [facility] Piperacillin Sod/Tazobactam Sod (Zosyn 3.375 Gm Iv Premix) 3.375 gm in 50 mls @ 100 mls/hr IVPB Q6H [facility]; Protocol Losartan Potassium (Cozaar) 25 mg PO DAILY [facility] Metoprolol Succinate (Toprol Xl) 100 mg PO DAILY [facility] Rosuvastatin Calcium (Crestor) 10 mg PO HS [facility] Physical Exam - Constitutional Appears: Non-toxic, No Acute Distress, Chronically Ill - Head Exam Head Exam: ATRAUMATIC, NORMAL INSPECTION, NORMOCEPHALIC - Eye Exam Eye Exam: EOMI, Normal appearance, PERRL Pupil Exam: NORMAL ACCOMODATION, PERRL - ENT Exam ENT Exam: Mucous Membranes Moist, Normal Exam - Neck Exam Neck exam: Positive for: Normal Inspection - Respiratory Exam Respiratory Exam: Clear to Auscultation Bilateral, NORMAL BREATHING PATTERN - Cardiovascular Exam Cardiovascular Exam: REGULAR RHYTHM, +S1, +S2 - GI/Abdominal Exam GI & Abdominal Exam: Distended, Hypoactive Bowel Sounds, Soft, Tenderness - Rectal Exam Rectal Exam: Deferred - Exam Exam: NORMAL INSPECTION - Extremities Exam Extremities exam: Positive for: normal inspection - Back Exam Back exam: NORMAL INSPECTION - Neurological Exam Neurological exam: Alert, CN II-XII Intact, Normal Gait, Oriented x3, Reflexes Normal - Psychiatric Exam Psychiatric exam: Normal Affect, Normal Mood - Skin Skin Exam: Dry, Intact, Normal Color, Warm Results - Vital Signs Recent Vital Signs: Last Vital Signs Temp 99.5 F 03/14/19 17:32 Pulse 86 03/14/19 17:32 Resp 22 03/14/19 17:32 BP 112/55 L 03/14/19 17:32 Pulse Ox 98 03/14/19 17:32 - Labs Result Diagrams: 03/15/19 17:26 03/15/19 17:26 Labs: Laboratory Results - last 24 hr 03/14/19 03/14/19 03/14/19 11:02 11:45 11:45 WBC 7.7 RBC 3.90 L Hgb 12.3 Hct 36.1 MCV 92.5 MCH 31.4 H MCHC 34.0 RDW 13.4 Plt Count 139 MPV 7.9 Neut % (Auto) 95.9 H Lymph % (Auto) 2.3 L [place] % (Auto) 1.0 Eos % (Auto) 0.2 Baso % (Auto) 0.6 Neut # (Auto) 7.4 H Lymph # (Auto) 0.2 L [place] # (Auto) 0.1 Eos # (Auto) 0.0 Baso # (Auto) 0.0 Neutrophils % (Manual) 89 H Band Neutrophils % 7 H Lymphocytes % (Manual) 2 L Monocytes % (Manual) 2 Nucleated RBC % 1 H Platelet Estimate Normal RBC Morphology Normal PT 13.2 H INR 1.2 APTT 48.0 H pO2 VBG pH VBG pCO2 VBG HCO3 VBG Total CO2 VBG O2 Sat (Calc) VBG Base Excess VBG Potassium Glucose Lactate Sodium Potassium Chloride Carbon Dioxide Anion Gap BUN Creatinine Est GFR ( Amer) Est GFR (Non-Af Amer) POC Glucose (mg/dL) 154 H Random Glucose Calcium Total Bilirubin AST ALT Alkaline Phosphatase Troponin I NT-Pro-B Natriuret Pep Total Protein Albumin Globulin Albumin/Globulin Ratio Venous Blood Potassium Urine Color Urine Clarity Urine pH Ur Specific [place] Urine Protein Urine Glucose (UA) Urine Ketones Urine Blood Urine Nitrate Urine Bilirubin Urine Urobilinogen Ur Leukocyte Esterase Urine WBC (Auto) Urine RBC (Auto) 03/14/19 03/14/19 03/14/19 11:45 13:25 14:26 WBC RBC Hgb Hct MCV MCH MCHC RDW Plt Count MPV Neut % (Auto) Lymph % (Auto) Heard % (Auto) Eos % (Auto) Baso % (Auto) Neut # (Auto) Lymph # (Auto) Heard # (Auto) Eos # (Auto) Baso # (Auto) Neutrophils % (Manual) Band Neutrophils % Lymphocytes % (Manual) Monocytes % (Manual) Nucleated RBC % Platelet Estimate RBC Morphology PT INR APTT pO2 50 VBG pH 7.34 VBG pCO2 48 VBG HCO3 24.2 VBG Total CO2 27.4 VBG O2 Sat (Calc) 85.8 H VBG Base Excess -0.4 L VBG Potassium 3.9 Glucose 138 H Lactate 1.9 Sodium 142 140.0 Potassium 4.3 Chloride 104 104.0 Carbon Dioxide 27 Anion Gap 15 BUN 26 H Creatinine 1.3 Est GFR ( Amer) > 60 Est GFR (Non-Af Amer) 54 POC Glucose (mg/dL) Random Glucose 158 H Calcium 9.3 Total Bilirubin 0.9 AST 34 ALT 33 Alkaline Phosphatase 71 Troponin I 0.0570 NT-Pro-B Natriuret Pep 565 Total Protein 6.7 Albumin 4.0 Globulin 2.7 Albumin/Globulin Ratio 1.5 Venous Blood Potassium 3.9 Urine Color Yellow Urine Clarity Clear Urine pH 5.0 Ur Specific [place] 1.016 Urine Protein 2+ H Urine Glucose (UA) Normal Urine Ketones Negative Urine Blood Negative Urine Nitrate Negative Urine Bilirubin Negative Urine Urobilinogen 2.0 Ur Leukocyte Esterase Neg Urine WBC (Auto) 2 Urine RBC (Auto) < 1 Assessment & Plan (1) Bacteremia Status: Acute (2) Abdominal pain Status: Acute - Assessment and Plan (Free Text) Assessment: r/o GI source as CXR and CT negative need CT abd Stat surgical consult cont IV antibiotics
--- NOTE | 2019-03-15 20:39 | CP.PCM.CON ---
History of Present Illness - History of Present Illness History of Present Illness: General surgery consult note for Dr. Marisela Ortega, PGY-2 Pt seen/examined at bedside 78M w/PMH sig for DM, HTN, CAD, CHF, and recent TIA consulted for possible appendicitis. Pt currently sitting comfortably in chair. Pt originally admitted to hospital for chest pain x 1 day. Pt reports CP has resolved, was having RLQ abdominal pain- intermittent, mild, non radiating, caused by coughing. Reports daily BM of 2-3x daily, last BM was on day prior to evaluation. Denies F & C, N & V, dysuria, hematuria, hematemesis, diarrhea, urinary changes, other complaints. CT A/P with fat stranding, mild dilation of appendix, no appendicolith. No leukocytosis on labs from 03/14, febrile one day prior to evaluation 100.4. PMH: DM, HTN, CAD, CHF, recent TIA PSH: CABG, PCI (12/2018), cholecystectomy w/IOC (2016) All: NKDA SH: Remote hx of tobacco use, no current ETOH or illicit drug use FH: Non contributory Review of Systems - Review of Systems All systems: reviewed and no additional remarkable complaints except - Constitutional Constitutional: absent: Chills, Fever - EENT Nose/Mouth/Throat: absent: Sore Throat - Cardiovascular Cardiovascular: absent: Chest Pain - Respiratory Respiratory: Cough (occasional) - Gastrointestinal Gastrointestinal: Abdominal Pain (with coughing), Constipation. absent: Nausea, Vomiting - Genitourinary Genitourinary: absent: Change in Urinary Stream - Integumentary Integumentary: absent: Rash - Neurological Neurological: absent: Weakness - Psychiatric Psychiatric: absent: Change in Appetite Past Patient History - Infectious Disease Hx of Infectious Diseases: None - Past Medical History & Family History Past Medical History?: Yes - Past Social History Smoking Status: Never Smoked - CARDIAC Hx Congestive Heart Failure: Yes Hx Hypercholesterolemia: Yes Hx Hypertension: Yes - PULMONARY Hx Bronchitis: Yes - NEUROLOGICAL HX Cerebrovascular Accident: Yes - HEENT Hx HEENT Problems: No - RENAL Hx Chronic Kidney Disease: No - ENDOCRINE/METABOLIC Hx Diabetes Mellitus Type 2: Yes - HEMATOLOGICAL/ONCOLOGICAL Hx Blood Disorders: Yes Hx Blood Transfusions: Yes Hx Blood Transfusion Reaction: No - INTEGUMENTARY Hx Dermatological Problems: No - MUSCULOSKELETAL/RHEUMATOLOGICAL Hx Arthritis: Yes - GASTROINTESTINAL Hx Gastrointestinal Disorders: Yes - GENITOURINARY/GYNECOLOGICAL Hx Genitourinary Disorders: No - PSYCHIATRIC Hx Substance Use: No - SURGICAL HISTORY Hx Appendectomy: Yes (2017) Hx Cholecystectomy: Yes Hx Coronary Artery Bypass Graft: Yes (2011) - ANESTHESIA Hx Anesthesia: Yes Hx Anesthesia Reactions: No Hx Malignant Hyperthermia: No Meds Allergies/Adverse Reactions: Allergies Allergy/AdvReac Type Severity Reaction Status Date / Time No Known Allergies Allergy Verified 01/01/19 15:24 - Medications Medications: Current Medications Amlodipine Besylate (Norvasc) 10 mg PO DAILY [facility] Last Admin: 03/15/19 10:06 Dose: 10 mg Apixaban (Eliquis) 5 mg PO BID [facility] Last Admin: 03/15/19 17:43 Dose: 5 mg Aspirin (Aspirin Chewable) 81 mg PO DAILY [facility] Last Admin: 03/15/19 10:06 Dose: 81 mg Calcium Carbonate (Tums) 500 mg PO BID [facility] Last Admin: 03/15/19 17:43 Dose: 500 mg Glimepiride (Amaryl) 4 mg PO DAILY [facility] Last Admin: 03/15/19 10:06 Dose: 4 mg Hydrochlorothiazide (Hydrodiuril) 25 mg PO DAILY [facility] Last Admin: 03/15/19 10:05 Dose: 25 mg Piperacillin Sod/Tazobactam Sod (Zosyn 3.375 Gm Iv Premix) 3.375 gm in 50 mls @ 100 mls/hr IVPB Q6H [facility]; Protocol Last Admin: 03/15/19 16:19 Dose: 100 mls/hr Losartan Potassium (Cozaar) 25 mg PO DAILY [facility] Last Admin: 03/15/19 10:06 Dose: 25 mg Metoprolol Succinate (Toprol Xl) 100 mg PO DAILY [facility] Last Admin: 03/15/19 10:06 Dose: 100 mg Rosuvastatin Calcium (Crestor) 10 mg PO HS [facility] Last Admin: 03/14/19 21:47 Dose: 10 mg Physical Exam - Constitutional Appears: Non-toxic, No Acute Distress - Head Exam Head Exam: ATRAUMATIC, NORMAL INSPECTION, NORMOCEPHALIC - Eye Exam Eye Exam: EOMI, Normal appearance - ENT Exam ENT Exam: Mucous Membranes Moist, Normal Exam - Respiratory Exam Respiratory Exam: Clear to Auscultation Bilateral, NORMAL BREATHING PATTERN. absent: Rhonchi, Wheezes, Respiratory Distress - Cardiovascular Exam Cardiovascular Exam: REGULAR RHYTHM, +S1, +S2 - GI/Abdominal Exam GI & Abdominal Exam: Soft, Tenderness (very mild, RLQ). absent: Distended (obese), Firm, Guarding, Hernia, Rigid Additional comments: well healed linear scars at umbilicus, RLQ - Extremities Exam Extremities exam: Positive for: normal inspection - Neurological Exam Neurological exam: Alert, CN II-XII Intact, Oriented x3 - Psychiatric Exam Psychiatric exam: Normal Affect, Normal Mood - Skin Skin Exam: Dry, Intact, Normal Color, Warm Results - Vital Signs Recent Vital Signs: Last Vital Signs Temp 97.8 F 03/15/19 07:00 Pulse 87 03/15/19 16:00 Resp 20 03/15/19 07:00 BP 182/89 H 03/15/19 07:00 Pulse Ox 98 03/15/19 16:00 - Labs Result Diagrams: 03/15/19 17:26 03/15/19 17:26 Labs: Laboratory Results - last 24 hr 03/14/19 03/15/19 03/15/19 20:40 06:17 17:26 WBC 9.4 RBC 4.11 L Hgb 12.6 Hct 38.0 MCV 92.4 MCH 30.6 MCHC 33.1 RDW 13.6 Plt Count 108 L D MPV 7.5 Neut % (Auto) 85.8 H Lymph % (Auto) 4.5 L [place] % (Auto) 9.0 Eos % (Auto) 0.5 Baso % (Auto) 0.2 Neut # (Auto) 8.1 H Lymph # (Auto) 0.4 L [place] # (Auto) 0.8 Eos # (Auto) 0.0 Baso # (Auto) 0.0 Neutrophils % (Manual) 91 H Lymphocytes % (Manual) 5 L Monocytes % (Manual) 3 Basophils % (Manual) 1 Platelet Estimate Decreased L Sodium Potassium Chloride Carbon Dioxide Anion Gap BUN Creatinine Est GFR ( Amer) Est GFR (Non-Af Amer) POC Glucose (mg/dL) 141 H Random Glucose Calcium Total Bilirubin AST ALT Alkaline Phosphatase Troponin I 0.1110 Total Protein Albumin Globulin Albumin/Globulin Ratio 03/15/19 17:26 WBC RBC Hgb Hct MCV MCH MCHC RDW Plt Count MPV Neut % (Auto) Lymph % (Auto) [place] % (Auto) Eos % (Auto) Baso % (Auto) Neut # (Auto) Lymph # (Auto) [place] # (Auto) Eos # (Auto) Baso # (Auto) Neutrophils % (Manual) Lymphocytes % (Manual) Monocytes % (Manual) Basophils % (Manual) Platelet Estimate Sodium 136 Potassium 4.6 Chloride 97 L Carbon Dioxide 27 Anion Gap 17 BUN 38 H Creatinine 1.8 H Est GFR ( Amer) 44 Est GFR (Non-Af Amer) 37 POC Glucose (mg/dL) Random Glucose 162 H Calcium 9.5 Total Bilirubin 1.2 AST 26 ALT 32 Alkaline Phosphatase 52 Troponin I Total Protein 7.1 Albumin 4.0 Globulin 3.1 Albumin/Globulin Ratio 1.3 Assessment & Plan - Assessment and Plan (Free Text) Assessment: 78M w/RLQ abdominal pain- mild, intermittent, non radiating Plan: Recommend bowel regimen FU labs from today Pt currently with benign abdominal exam Further surgical recs pending lab work results SAMY Ortega, PGY-2 - Date & Time Date: 03/15/19 Time: 17:23
[2019-03-16] MEDS: Piperacill/Tazo 3.375gm in Dex 3.375 GM/50 ML BAG IVPB SCH ×4 (04:17→21:27)
--- NOTE | 2019-03-16 07:48 | CP.PCM.PN ---
Subjective - Date & Time of Evaluation Date of Evaluation: 03/16/19 Time of Evaluation: 07:43 - Subjective Subjective: Surgery Progress Note- Dr. Delacruz continuing to complain of some chest pain. Denies abd pain, however during examination and palpation patient was tender in RLQ. Denies fevers, chills, nausea, vomiting, diarrhea. Objective - Vital Signs/Intake and Output Vital Signs (last 24 hours): Temp Pulse Resp BP Pulse Ox 99.6 F 86 20 152/70 H 97 03/15/19 23:25 03/15/19 23:25 03/15/19 23:25 03/15/19 23:25 03/15/19 23:25 - Medications Medications: Current Medications Amlodipine Besylate (Norvasc) 10 mg PO DAILY [facility] Last Admin: 03/15/19 10:06 Dose: 10 mg Apixaban (Eliquis) 5 mg PO BID [facility] Last Admin: 03/15/19 17:43 Dose: 5 mg Aspirin (Aspirin Chewable) 81 mg PO DAILY [facility] Last Admin: 03/15/19 10:06 Dose: 81 mg Calcium Carbonate (Tums) 500 mg PO BID [facility] Last Admin: 03/15/19 17:43 Dose: 500 mg Glimepiride (Amaryl) 4 mg PO DAILY [facility] Last Admin: 03/15/19 10:06 Dose: 4 mg Hydrochlorothiazide (Hydrodiuril) 25 mg PO DAILY [facility] Last Admin: 03/15/19 10:05 Dose: 25 mg Piperacillin Sod/Tazobactam Sod (Zosyn 3.375 Gm Iv Premix) 3.375 gm in 50 mls @ 100 mls/hr IVPB Q6H [facility]; Protocol Last Admin: 03/16/19 04:17 Dose: 100 mls/hr Losartan Potassium (Cozaar) 25 mg PO DAILY [facility] Last Admin: 03/15/19 10:06 Dose: 25 mg Metoprolol Succinate (Toprol Xl) 100 mg PO DAILY [facility] Last Admin: 03/15/19 10:06 Dose: 100 mg Rosuvastatin Calcium (Crestor) 10 mg PO HS [facility] Last Admin: 03/15/19 22:07 Dose: 10 mg - Labs Labs: 03/15/19 17:26 03/15/19 17:26 PT 13.2 SECONDS (9.7-12.2) H 03/14/19 11:45 INR 1.2 03/14/19 11:45 APTT 48.0 SECONDS (21-34) H 03/14/19 11:45 - Constitutional Appears: Non-toxic, No Acute Distress - Eye Exam Eye Exam: EOMI. absent: Scleral icterus - ENT Exam ENT Exam: Mucous Membranes Moist - Respiratory Exam Respiratory Exam: NORMAL BREATHING PATTERN. absent: Accessory Muscle Use, Respiratory Distress - Cardiovascular Exam Cardiovascular Exam: REGULAR RHYTHM. absent: Bradycardia, Tachycardia - GI/Abdominal Exam GI & Abdominal Exam: Soft, Tenderness, Rebound. absent: Distended, Firm, Guard ing, Rigid Additional comments: Negative Rovsins + TTP in RLQ, + Rebound tenderness - Extremities Exam Extremities Exam: absent: Calf Tenderness - Neurological Exam Neurological Exam: Alert, Awake, Oriented x3 - Skin Skin Exam: Intact, Warm Assessment and Plan - Assessment and Plan (Free Text) Assessment: 78M w/ Chest pain, now with mild abdominal pain, R/O Appendicitis Aguila Score: 4 Plan: - Hold eliquis - May get repeat CT scan for closer evaluation of appendix - c/w Abx - further management pending results of imaging - d/w Dr. Delacruz Surgical attending PGY2
[2019-03-16 08:49] LABS: BASO % 0.2 % (0.0-2.0); EOS # 0.1 K/uL (0.0-0.7); EOS % 1.1 % (0.0-4.0); LYMPH # 0.6 K/uL (1.0-4.3); LYMPH % 6.7 % (20.0-40.0); MEAN CELL VOLUME 92.1 fL (80.0-94.0); MEAN CORPUSCULAR HEMOGLOBIN 31.4 pg (27.0-31.0); MEAN CORPUSCULAR HGB CONC 34.1 g/dL (33.0-37.0); MEAN PLATELET VOLUME 8.5 fL (7.2-11.7); MONO # 1.1 K/uL (0.0-0.8); MONO % 13.3 % (0.0-10.0); NEUT # 6.6 K/uL (1.8-7.0); NEUT % 78.7 % (50.0-75.0); PLATELET COUNT 107 K/uL (130-400); RBC 3.83 Mil/uL (4.40-5.90); RED CELL DISTRIBUTION WIDTH 13.6 % (11.5-14.5); WHITE BLOOD COUNT 8.4 K/uL (4.8-10.8)
[2019-03-16 08:57] LABS: ALB/GLOB RATIO 1.4 (1.0-2.1); ALBUMIN 3.6 g/dL (3.5-5.0); CALCIUM 9.1 mg/dl (8.6-10.4)
[2019-03-16] MEDS: Sodium Chloride 0.9% 1,000 ML IV SCH ×2 (09:20→20:12)
[2019-03-16] MEDS: Calcium Carbonate 500 mg Chewable Antacid Tab PO SCH ×2 (09:23→17:52)
[2019-03-16] MEDS: Metoprolol Succinate 100 mg XL Tab PO SCH (09:23)
[2019-03-16 09:24] LABS: EOSINOPHIL 1 % (0-4); LYMPHOCYTE 4 % (20-40); MONOCYTE 9 % (0-10); NEUTROPHIL 86 % (50-75); PLATELET ESTIMATE SLIGHTLY DECREASED (NORMAL); TOTAL CELLS COUNTED 100
[2019-03-16 09:25] LABS: ANISOCYTOSIS SLIGHT; TOXIC GRANULATION PRESENT
--- NOTE | 2019-03-16 17:02 | CP.PCM.PN ---
Objective - Vital Signs/Intake and Output Vital Signs (last 24 hours): Temp Pulse Resp BP Pulse Ox 98.2 F 72 20 133/72 95 03/16/19 16:47 03/16/19 16:47 03/16/19 16:47 03/16/19 16:47 03/16/19 16:47 Intake and Output: 03/16/19 03/16/19 06:59 18:59 Intake Total 860 Balance 860 - Medications Medications: Current Medications Amlodipine Besylate (Norvasc) 10 mg PO DAILY [facility] Last Admin: 03/16/19 09:23 Dose: 10 mg Apixaban (Eliquis) 5 mg PO BID [facility] Last Admin: 03/15/19 17:43 Dose: 5 mg Aspirin (Aspirin Chewable) 81 mg PO DAILY [facility] Last Admin: 03/16/19 09:23 Dose: 81 mg Calcium Carbonate (Tums) 500 mg PO BID [facility] Last Admin: 03/16/19 09:23 Dose: 500 mg Glimepiride (Amaryl) 4 mg PO DAILY [facility] Last Admin: 03/16/19 09:23 Dose: 4 mg Hydrochlorothiazide (Hydrodiuril) 25 mg PO DAILY [facility] Last Admin: 03/16/19 09:41 Dose: 25 mg Piperacillin Sod/Tazobactam Sod (Zosyn 3.375 Gm Iv Premix) 3.375 gm in 50 mls @ 100 mls/hr IVPB Q6H [facility]; Protocol Last Admin: 03/16/19 16:53 Dose: 100 mls/hr Sodium Chloride (Sodium Chloride 0.9%) 1,000 mls @ 110 mls/hr IV .Q9H6M [facility] Last Admin: 03/16/19 09:20 Dose: 110 mls/hr Losartan Potassium (Cozaar) 25 mg PO DAILY [facility] Last Admin: 03/16/19 09:23 Dose: 25 mg Metoprolol Succinate (Toprol Xl) 100 mg PO DAILY [facility] Last Admin: 03/16/19 09:23 Dose: 100 mg Rosuvastatin Calcium (Crestor) 10 mg PO HS [facility] Last Admin: 03/15/19 22:07 Dose: 10 mg - Labs Labs: 03/16/19 08:20 03/16/19 08:20 PT 13.2 SECONDS (9.7-12.2) H 03/14/19 11:45 INR 1.2 03/14/19 11:45 APTT 48.0 SECONDS (21-34) H 03/14/19 11:45
--- NOTE | 2019-03-16 18:29 | CP.PCM.PN ---
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 - positive blood culture IV rx in progress needs GI eval and surgical follow up Objective - Vital Signs/Intake and Output Vital Signs (last 24 hours): Temp Pulse Resp BP Pulse Ox 98.2 F 72 20 133/72 95 03/16/19 16:47 03/16/19 16:47 03/16/19 16:47 03/16/19 16:47 03/16/19 16:47 Intake and Output: 03/16/19 03/16/19 06:59 18:59 Intake Total 860 Balance 860 - Medications Medications: Current Medications Amlodipine Besylate (Norvasc) 10 mg PO DAILY [facility] Last Admin: 03/16/19 09:23 Dose: 10 mg Apixaban (Eliquis) 5 mg PO BID [facility] Last Admin: 03/15/19 17:43 Dose: 5 mg Aspirin (Aspirin Chewable) 81 mg PO DAILY [facility] Last Admin: 03/16/19 09:23 Dose: 81 mg Calcium Carbonate (Tums) 500 mg PO BID [facility] Last Admin: 03/16/19 17:52 Dose: 500 mg Glimepiride (Amaryl) 4 mg PO DAILY [facility] Last Admin: 03/16/19 09:23 Dose: 4 mg Hydrochlorothiazide (Hydrodiuril) 25 mg PO DAILY [facility] Last Admin: 03/16/19 09:41 Dose: 25 mg Piperacillin Sod/Tazobactam Sod (Zosyn 3.375 Gm Iv Premix) 3.375 gm in 50 mls @ 100 mls/hr IVPB Q6H [facility]; Protocol Last Admin: 03/16/19 16:53 Dose: 100 mls/hr Sodium Chloride (Sodium Chloride 0.9%) 1,000 mls @ 110 mls/hr IV .Q9H6M [facility] Last Admin: 03/16/19 09:20 Dose: 110 mls/hr Losartan Potassium (Cozaar) 25 mg PO DAILY [facility] Last Admin: 03/16/19 09:23 Dose: 25 mg Metoprolol Succinate (Toprol Xl) 100 mg PO DAILY [facility] Last Admin: 03/16/19 09:23 Dose: 100 mg Rosuvastatin Calcium (Crestor) 10 mg PO HS [facility] Last Admin: 03/15/19 22:07 Dose: 10 mg - Labs Labs: 03/16/19 08:20 03/16/19 08:20 PT 13.2 SECONDS (9.7-12.2) H 03/14/19 11:45 INR 1.2 03/14/19 11:45 APTT 48.0 SECONDS (21-34) H 03/14/19 11:45 - Constitutional Appears: Non-toxic, Chronically Ill - Head Exam Head Exam: ATRAUMATIC, NORMAL INSPECTION, NORMOCEPHALIC - Eye Exam Eye Exam: EOMI, Normal appearance, PERRL Pupil Exam: NORMAL ACCOMODATION, PERRL - ENT Exam ENT Exam: Mucous Membranes Moist, Normal Exam - Neck Exam Neck Exam: Full ROM, Normal Inspection. absent: Lymphadenopathy - Respiratory Exam Respiratory Exam: Clear to Ausculation Bilateral, NORMAL BREATHING PATTERN - Cardiovascular Exam Cardiovascular Exam: REGULAR RHYTHM, +S1, +S2. absent: Murmur - GI/Abdominal Exam GI & Abdominal Exam: Soft, Normal Bowel Sounds. absent: Tenderness - Rectal Exam Rectal Exam: Deferred - Exam Exam: NORMAL INSPECTION - Extremities Exam Extremities Exam: Full ROM, Normal Capillary Refill, Normal Inspection. absent: Joint Swelling, Pedal Edema - Back Exam Back Exam: NORMAL INSPECTION - Neurological Exam Neurological Exam: Alert, Awake, CN II-XII Intact, Normal Gait, Oriented x3 - Psychiatric Exam Psychiatric exam: Normal Affect, Normal Mood - Skin Skin Exam: Dry, Intact, Normal Color, Warm Assessment and Plan (1) Bacteremia Status: Acute (2) Abdominal pain Status: Acute (3) Chest pain Status: Acute (4) Abdominal pain Status: Acute (5) Appendicitis with perforation Status: Acute - Assessment and Plan (Free Text) Assessment: hx or ruptured appendix 2018 treated conservatively For repeat CT Has bacteremia cont IV rx GI and surg eval
--- NOTE | 2019-03-16 19:19 | CP.PCM.PN ---
Subjective - Date & Time of Evaluation Date of Evaluation: 03/15/19 Time of Evaluation: 12:05 - Subjective Subjective: Patient seen and evaluated Denies chest pain and dyspnea Review Of Systems Constitutional: Positive for: Fever. Negative for: Chills, Sweats Eyes: Negative for: Vision Change Cardiovascular: Positive for: Chest Pain. Negative for: Palpitations, Edema Respiratory: Negative for: Shortness of Breath Gastrointestinal: Negative for: Nausea, Vomiting Musculoskeletal: Negative for: Back Pain, Leg Pain Neurological: Negative for: Weakness, Numbness, Headache, Dizziness Physical Exam - Physical Exam Appears: Non-toxic, No Acute Distress Skin: Normal Color, Warm, No Diaphoretic Head: Atraumatic, Normacephalic Eye(s): bilateral: Normal Inspection, PERRL, EOMI Oral Mucosa: Moist Neck: Normal ROM Chest: Symmetrical, No Tenderness Cardiovascular: Rhythm Regular, Other (Tachycardic, Normal S1,S2) Respiratory: Decreased Breath Sounds, Rales (at the right base), No Rhonchi, No Wheezing Gastrointestinal/Abdominal: Soft, No Tenderness, No Distention Extremity: Bilateral: Atraumatic, No Pedal Edema, Normal Color And Temperature Pulses: Left Dorsalis Pedis: Normal, Right Dorsalis Pedis: Normal Neurological/Psych: Oriented x3, Normal Speech Gait: Steady Objective - Vital Signs/Intake and Output Vital Signs (last 24 hours): Temp Pulse Resp BP Pulse Ox 98.2 F 72 20 133/72 95 03/16/19 16:47 03/16/19 16:47 03/16/19 16:47 03/16/19 16:47 03/16/19 16:47 Intake and Output: 03/16/19 03/17/19 18:59 06:59 Intake Total 860 Balance 860 - Medications Medications: Current Medications Amlodipine Besylate (Norvasc) 10 mg PO DAILY [facility] Last Admin: 03/16/19 09:23 Dose: 10 mg Apixaban (Eliquis) 5 mg PO BID [facility] Last Admin: 03/15/19 17:43 Dose: 5 mg Aspirin (Aspirin Chewable) 81 mg PO DAILY [facility] Last Admin: 03/16/19 09:23 Dose: 81 mg Calcium Carbonate (Tums) 500 mg PO BID [facility] Last Admin: 03/16/19 17:52 Dose: 500 mg Glimepiride (Amaryl) 4 mg PO DAILY [facility] Last Admin: 03/16/19 09:23 Dose: 4 mg Hydrochlorothiazide (Hydrodiuril) 25 mg PO DAILY [facility] Last Admin: 03/16/19 09:41 Dose: 25 mg Piperacillin Sod/Tazobactam Sod (Zosyn 3.375 Gm Iv Premix) 3.375 gm in 50 mls @ 100 mls/hr IVPB Q6H [facility]; Protocol Last Admin: 03/16/19 16:53 Dose: 100 mls/hr Sodium Chloride (Sodium Chloride 0.9%) 1,000 mls @ 110 mls/hr IV .Q9H6M [facility] Last Admin: 03/16/19 09:20 Dose: 110 mls/hr Losartan Potassium (Cozaar) 25 mg PO DAILY [facility] Last Admin: 03/16/19 09:23 Dose: 25 mg Metoprolol Succinate (Toprol Xl) 100 mg PO DAILY [facility] Last Admin: 03/16/19 09:23 Dose: 100 mg Rosuvastatin Calcium (Crestor) 10 mg PO HS [facility] Last Admin: 03/15/19 22:07 Dose: 10 mg - Labs Labs: 03/16/19 08:20 03/16/19 08:20 PT 13.2 SECONDS (9.7-12.2) H 03/14/19 11:45 INR 1.2 03/14/19 11:45 APTT 48.0 SECONDS (21-34) H 03/14/19 11:45 Assessment and Plan - Assessment and Plan (Free Text) Assessment: 78 M with hx of CABG, HTN, CKD on HD admitted for chest pain Trop x 2 negative Recent cath 12/2018: Patent grafts ECHO 10/29: Normal EF
--- NOTE | 2019-03-16 19:28 | CP.PCM.PN ---
Subjective - Date & Time of Evaluation Date of Evaluation: 03/16/19 Time of Evaluation: 16:10 - Subjective Subjective: Patient seen and evaluated Denies chest pain and dyspnea Patient for possible Appendectomy tomorrow Review Of Systems Constitutional: Positive for: Fever. Negative for: Chills, Sweats Eyes: Negative for: Vision Change Cardiovascular: Positive for: Chest Pain. Negative for: Palpitations, Edema Respiratory: Negative for: Shortness of Breath Gastrointestinal: Negative for: Nausea, Vomiting Musculoskeletal: Negative for: Back Pain, Leg Pain Neurological: Negative for: Weakness, Numbness, Headache, Dizziness Physical Exam - Physical Exam Appears: Non-toxic, No Acute Distress Skin: Normal Color, Warm, No Diaphoretic Head: Atraumatic, Normacephalic Eye(s): bilateral: Normal Inspection, PERRL, EOMI Oral Mucosa: Moist Neck: Normal ROM Chest: Symmetrical, No Tenderness Cardiovascular: Rhythm Regular, Other (Tachycardic, Normal S1,S2) Respiratory: Decreased Breath Sounds, Rales (at the right base), No Rhonchi, No Wheezing Gastrointestinal/Abdominal: Soft, No Tenderness, No Distention Extremity: Bilateral: Atraumatic, No Pedal Edema, Normal Color And Temperature Pulses: Left Dorsalis Pedis: Normal, Right Dorsalis Pedis: Normal Neurological/Psych: Oriented x3, Normal Speech Gait: Steady Objective - Vital Signs/Intake and Output Vital Signs (last 24 hours): Temp Pulse Resp BP Pulse Ox 98.2 F 72 20 133/72 95 03/16/19 16:47 03/16/19 16:47 03/16/19 16:47 03/16/19 16:47 03/16/19 16:47 Intake and Output: 03/16/19 03/17/19 18:59 06:59 Intake Total 860 Balance 860 - Medications Medications: Current Medications Amlodipine Besylate (Norvasc) 10 mg PO DAILY [facility] Last Admin: 03/16/19 09:23 Dose: 10 mg Apixaban (Eliquis) 5 mg PO BID [facility] Last Admin: 03/15/19 17:43 Dose: 5 mg Aspirin (Aspirin Chewable) 81 mg PO DAILY [facility] Last Admin: 03/16/19 09:23 Dose: 81 mg Calcium Carbonate (Tums) 500 mg PO BID [facility] Last Admin: 03/16/19 17:52 Dose: 500 mg Glimepiride (Amaryl) 4 mg PO DAILY [facility] Last Admin: 03/16/19 09:23 Dose: 4 mg Hydrochlorothiazide (Hydrodiuril) 25 mg PO DAILY [facility] Last Admin: 03/16/19 09:41 Dose: 25 mg Piperacillin Sod/Tazobactam Sod (Zosyn 3.375 Gm Iv Premix) 3.375 gm in 50 mls @ 100 mls/hr IVPB Q6H [facility]; Protocol Last Admin: 03/16/19 16:53 Dose: 100 mls/hr Sodium Chloride (Sodium Chloride 0.9%) 1,000 mls @ 110 mls/hr IV .Q9H6M [facility] Last Admin: 03/16/19 09:20 Dose: 110 mls/hr Losartan Potassium (Cozaar) 25 mg PO DAILY [facility] Last Admin: 03/16/19 09:23 Dose: 25 mg Metoprolol Succinate (Toprol Xl) 100 mg PO DAILY [facility] Last Admin: 03/16/19 09:23 Dose: 100 mg Rosuvastatin Calcium (Crestor) 10 mg PO HS [facility] Last Admin: 03/15/19 22:07 Dose: 10 mg - Labs Labs: 03/16/19 08:20 03/16/19 08:20 PT 13.2 SECONDS (9.7-12.2) H 03/14/19 11:45 INR 1.2 03/14/19 11:45 APTT 48.0 SECONDS (21-34) H 03/14/19 11:45 Assessment and Plan - Assessment and Plan (Free Text) Assessment: 78 M with hx of CABG, HTN, CKD on HD admitted for chest pain Trop x 2 negative Recent cath 12/2018: Patent grafts ECHO 10/29: Normal EF Assessed as moderate cardiac risk for Appendectomy under general anaesthesia If benefit outweighs the risk please proceed with the surgery Thank you Will follow
[2019-03-17] MEDS: Piperacill/Tazo 3.375gm in Dex 3.375 GM/50 ML BAG IVPB SCH ×4 (04:17→21:10)
[2019-03-17 08:04] LABS: BASO % 0.3 % (0.0-2.0); EOS # 0.2 K/uL (0.0-0.7); EOS % 2.8 % (0.0-4.0); HEMOGLOBIN 11.9 g/dL (12.0-18.0); LYMPH # 0.7 K/uL (1.0-4.3); LYMPH % 12.4 % (20.0-40.0); MEAN CELL VOLUME 92.1 fL (80.0-94.0); MEAN CORPUSCULAR HEMOGLOBIN 31.9 pg (27.0-31.0); MEAN CORPUSCULAR HGB CONC 34.6 g/dL (33.0-37.0); MONO % 16.9 % (0.0-10.0); NEUT # 3.9 K/uL (1.8-7.0); NEUT % 67.6 % (50.0-75.0); RBC 3.74 Mil/uL (4.40-5.90); RED CELL DISTRIBUTION WIDTH 13.4 % (11.5-14.5); WHITE BLOOD COUNT 5.8 K/uL (4.8-10.8)
[2019-03-17 08:11] LABS: INR 1.2; PROTHROMBIN TIME 13.6 SECONDS (9.7-12.2)
[2019-03-17 08:16] LABS: CALCIUM 9.1 mg/dl (8.6-10.4)
[2019-03-17] MEDS: Metoprolol Succinate 100 mg XL Tab PO SCH ×2 (10:00→17:39)
[2019-03-17] MEDS: Calcium Carbonate 500 mg Chewable Antacid Tab PO SCH ×2 (10:00→17:36)
--- NOTE | 2019-03-17 12:41 | CP.PCM.PN ---
Subjective - Date & Time of Evaluation Date of Evaluation: 03/17/19 Time of Evaluation: 12:40 - Subjective Subjective: clinically improved labs wnl hungry no pain plan to monitoe hold eliquis at present Objective - Vital Signs/Intake and Output Vital Signs (last 24 hours): Temp Pulse Resp BP Pulse Ox 98.5 F 72 20 158/80 H 97 03/17/19 07:00 03/17/19 07:02 03/17/19 07:00 03/17/19 07:00 03/17/19 11:00 - Medications Medications: Current Medications Amlodipine Besylate (Norvasc) 10 mg PO DAILY [facility] Last Admin: 03/16/19 09:23 Dose: 10 mg Apixaban (Eliquis) 5 mg PO BID [facility] Last Admin: 03/15/19 17:43 Dose: 5 mg Aspirin (Aspirin Chewable) 81 mg PO DAILY [facility] Last Admin: 03/16/19 09:23 Dose: 81 mg Calcium Carbonate (Tums) 500 mg PO BID [facility] Last Admin: 03/16/19 17:52 Dose: 500 mg Glimepiride (Amaryl) 4 mg PO DAILY [facility] Last Admin: 03/16/19 09:23 Dose: 4 mg Hydrochlorothiazide (Hydrodiuril) 25 mg PO DAILY [facility] Last Admin: 03/16/19 09:41 Dose: 25 mg Piperacillin Sod/Tazobactam Sod (Zosyn 3.375 Gm Iv Premix) 3.375 gm in 50 mls @ 100 mls/hr IVPB Q6H [facility]; Protocol Last Admin: 03/17/19 04:17 Dose: 100 mls/hr Sodium Chloride (Sodium Chloride 0.9%) 1,000 mls @ 110 mls/hr IV .Q9H6M [facility] Last Admin: 03/16/19 20:12 Dose: 110 mls/hr Losartan Potassium (Cozaar) 25 mg PO DAILY [facility] Last Admin: 03/16/19 09:23 Dose: 25 mg Metoprolol Succinate (Toprol Xl) 100 mg PO DAILY [facility] Last Admin: 03/16/19 09:23 Dose: 100 mg Rosuvastatin Calcium (Crestor) 10 mg PO HS [facility] Last Admin: 03/16/19 21:27 Dose: 10 mg - Labs Labs: 03/17/19 07:54 03/17/19 07:54 PT 13.6 SECONDS (9.7-12.2) H 03/17/19 07:54 INR 1.2 03/17/19 07:54 APTT 85.0 SECONDS (21-34) H D 03/17/19 07:54
[2019-03-17] MEDS: Sodium Chloride 0.9% 1,000 ML IV SCH ×2 (14:09→14:11)
--- NOTE | 2019-03-17 16:54 | CP.PCM.PN ---
Subjective - Date & Time of Evaluation Date of Evaluation: 03/17/19 Time of Evaluation: 16:54 Objective - Vital Signs/Intake and Output Vital Signs (last 24 hours): Temp Pulse Resp BP Pulse Ox 98 F 69 20 171/75 H 95 03/17/19 15:50 03/17/19 15:50 03/17/19 15:50 03/17/19 15:50 03/17/19 15:50 - Medications Medications: Current Medications Amlodipine Besylate (Norvasc) 10 mg PO DAILY [facility] Last Admin: 03/17/19 10:00 Dose: Not Given Apixaban (Eliquis) 5 mg PO BID [facility] Last Admin: 03/15/19 17:43 Dose: 5 mg Aspirin (Aspirin Chewable) 81 mg PO DAILY [facility] Last Admin: 03/17/19 10:00 Dose: Not Given Calcium Carbonate (Tums) 500 mg PO BID [facility] Last Admin: 03/17/19 10:00 Dose: Not Given Glimepiride (Amaryl) 4 mg PO DAILY [facility] Last Admin: 03/17/19 10:00 Dose: Not Given Hydrochlorothiazide (Hydrodiuril) 25 mg PO DAILY [facility] Last Admin: 03/17/19 10:00 Dose: Not Given Piperacillin Sod/Tazobactam Sod (Zosyn 3.375 Gm Iv Premix) 3.375 gm in 50 mls @ 100 mls/hr IVPB Q6H [facility]; Protocol Last Admin: 03/17/19 11:00 Dose: 100 mls/hr Sodium Chloride (Sodium Chloride 0.9%) 1,000 mls @ 110 mls/hr IV .Q9H6M [facility] Last Admin: 03/17/19 14:11 Dose: Not Given Losartan Potassium (Cozaar) 25 mg PO DAILY [facility] Last Admin: 03/17/19 10:00 Dose: Not Given Metoprolol Succinate (Toprol Xl) 100 mg PO DAILY [facility] Last Admin: 03/17/19 10:00 Dose: Not Given Rosuvastatin Calcium (Crestor) 10 mg PO HS [facility] Last Admin: 03/16/19 21:27 Dose: 10 mg - Labs Labs: 03/17/19 07:54 03/17/19 07:54 PT 13.6 SECONDS (9.7-12.2) H 03/17/19 07:54 INR 1.2 03/17/19 07:54 APTT 85.0 SECONDS (21-34) H D 03/17/19 07:54
--- NOTE | 2019-03-17 23:02 | CP.PCM.PN ---
Subjective - Date & Time of Evaluation Date of Evaluation: 03/17/19 Time of Evaluation: 08:00 - Subjective Subjective: abdominal pain less tenderness less Blood cultures positive Objective - Vital Signs/Intake and Output Vital Signs (last 24 hours): Temp Pulse Resp BP Pulse Ox 98 F 71 20 171/75 H 95 03/17/19 15:50 03/17/19 20:33 03/17/19 15:50 03/17/19 15:50 03/17/19 15:50 Intake and Output: 03/17/19 03/18/19 18:59 06:59 Intake Total 1300 1400 Output Total 675 Balance 1300 725 - Medications Medications: Current Medications Amlodipine Besylate (Norvasc) 10 mg PO DAILY [facility] Last Admin: 03/17/19 17:39 Dose: 10 mg Apixaban (Eliquis) 5 mg PO BID [facility] Last Admin: 03/15/19 17:43 Dose: 5 mg Aspirin (Aspirin Chewable) 81 mg PO DAILY [facility] Last Admin: 03/17/19 10:00 Dose: Not Given Calcium Carbonate (Tums) 500 mg PO BID [facility] Last Admin: 03/17/19 17:36 Dose: 500 mg Glimepiride (Amaryl) 4 mg PO DAILY [facility] Last Admin: 03/17/19 10:00 Dose: Not Given Hydrochlorothiazide (Hydrodiuril) 25 mg PO DAILY [facility] Last Admin: 03/17/19 10:00 Dose: Not Given Piperacillin Sod/Tazobactam Sod (Zosyn 3.375 Gm Iv Premix) 3.375 gm in 50 mls @ 100 mls/hr IVPB Q6H [facility]; Protocol Last Admin: 03/17/19 21:10 Dose: 100 mls/hr Sodium Chloride (Sodium Chloride 0.9%) 1,000 mls @ 110 mls/hr IV .Q9H6M [facility] Last Admin: 03/17/19 14:11 Dose: Not Given Losartan Potassium (Cozaar) 25 mg PO DAILY [facility] Last Admin: 03/17/19 17:39 Dose: 25 mg Metoprolol Succinate (Toprol Xl) 100 mg PO DAILY [facility] Last Admin: 03/17/19 17:39 Dose: 100 mg Rosuvastatin Calcium (Crestor) 10 mg PO HS [facility] Last Admin: 03/17/19 21:11 Dose: 10 mg - Labs Labs: 03/17/19 07:54 03/17/19 07:54 PT 13.6 SECONDS (9.7-12.2) H 03/17/19 07:54 INR 1.2 03/17/19 07:54 APTT 85.0 SECONDS (21-34) H D 03/17/19 07:54 - Constitutional Appears: Non-toxic, Chronically Ill - Head Exam Head Exam: ATRAUMATIC, NORMAL INSPECTION, NORMOCEPHALIC - Eye Exam Eye Exam: EOMI, Normal appearance, PERRL Pupil Exam: NORMAL ACCOMODATION, PERRL - ENT Exam ENT Exam: Mucous Membranes Moist, Normal Exam - Neck Exam Neck Exam: Full ROM, Normal Inspection. absent: Lymphadenopathy - Respiratory Exam Respiratory Exam: Clear to Ausculation Bilateral, NORMAL BREATHING PATTERN - Cardiovascular Exam Cardiovascular Exam: REGULAR RHYTHM, +S1, +S2. absent: Murmur - GI/Abdominal Exam GI & Abdominal Exam: Distended, Soft, Tenderness, Diminished Bowel Sounds - Rectal Exam Rectal Exam: Deferred - Extremities Exam Extremities Exam: Full ROM, Normal Capillary Refill, Normal Inspection. absent: Joint Swelling, Pedal Edema - Back Exam Back Exam: NORMAL INSPECTION - Neurological Exam Neurological Exam: Alert, Awake, CN II-XII Intact, Normal Gait, Oriented x3 - Psychiatric Exam Psychiatric exam: Normal Affect, Normal Mood - Skin Skin Exam: Dry, Intact, Normal Color, Warm Assessment and Plan (1) Bacteremia Status: Acute (2) Abdominal pain Status: Acute (3) Chest pain Status: Acute (4) Abdominal pain Status: Acute (5) Appendicitis with perforation Status: Acute - Assessment and Plan (Free Text) Assessment: E Coli bacteremia/ sepsis Hx ruptured appendix last year abdominal pain less on IV antibiotics surgery on board OR on hold for now for possible repeat CT and or MRI abdomnen cont IV antibiotics
[2019-03-18] MEDS: Piperacill/Tazo 3.375gm in Dex 3.375 GM/50 ML BAG IVPB SCH ×4 (03:15→20:59)
[2019-03-18] MEDS: Sodium Chloride 0.9% 1,000 ML IV SCH ×2 (07:10→17:00)
[2019-03-18] MEDS: Metoprolol Succinate 100 mg XL Tab PO SCH (09:22)
[2019-03-18] MEDS: Calcium Carbonate 500 mg Chewable Antacid Tab PO SCH ×2 (09:22→17:01)
--- NOTE | 2019-03-18 11:43 | CP.PCM.PN ---
Subjective - Date & Time of Evaluation Date of Evaluation: 03/18/19 Time of Evaluation: 06:50 - Subjective Subjective: General Surgery Note for Dr. Delacruz Patient seen and examined at bedside. No acute event overnight. Patient's pain has improved. Denies fever/chills or nausea/vomiting. Patient is tolerating regular diet. He has no other complaints. Objective - Vital Signs/Intake and Output Vital Signs (last 24 hours): Temp Pulse Resp BP Pulse Ox 98.1 F 63 20 164/78 H 95 03/18/19 07:05 03/18/19 07:34 03/18/19 07:05 03/18/19 07:05 03/18/19 07:05 Intake and Output: 03/18/19 03/18/19 06:59 18:59 Intake Total 1400 Output Total 675 Balance 725 - Medications Medications: Current Medications Amlodipine Besylate (Norvasc) 10 mg PO DAILY [facility] Last Admin: 03/18/19 09:22 Dose: 10 mg Apixaban (Eliquis) 5 mg PO BID [facility] Last Admin: 03/15/19 17:43 Dose: 5 mg Aspirin (Aspirin Chewable) 81 mg PO DAILY [facility] Last Admin: 03/18/19 09:22 Dose: 81 mg Calcium Carbonate (Tums) 500 mg PO BID [facility] Last Admin: 03/18/19 09:22 Dose: 500 mg Glimepiride (Amaryl) 4 mg PO DAILY [facility] Last Admin: 03/18/19 09:22 Dose: 4 mg Hydrochlorothiazide (Hydrodiuril) 25 mg PO DAILY [facility] Last Admin: 03/18/19 09:22 Dose: 25 mg Piperacillin Sod/Tazobactam Sod (Zosyn 3.375 Gm Iv Premix) 3.375 gm in 50 mls @ 100 mls/hr IVPB Q6H [facility]; Protocol Last Admin: 03/18/19 09:25 Dose: 100 mls/hr Sodium Chloride (Sodium Chloride 0.9%) 1,000 mls @ 110 mls/hr IV .Q9H6M [facility] Last Admin: 03/18/19 07:10 Dose: Not Given Losartan Potassium (Cozaar) 25 mg PO DAILY [facility] Last Admin: 03/18/19 09:22 Dose: 25 mg Metoprolol Succinate (Toprol Xl) 100 mg PO DAILY [facility] Last Admin: 03/18/19 09:22 Dose: 100 mg Rosuvastatin Calcium (Crestor) 10 mg PO HS [facility] Last Admin: 03/17/19 21:11 Dose: 10 mg - Labs Labs: 03/17/19 07:54 03/17/19 07:54 PT 13.6 SECONDS (9.7-12.2) H 03/17/19 07:54 INR 1.2 03/17/19 07:54 APTT 85.0 SECONDS (21-34) H D 03/17/19 07:54 - Constitutional Appears: Non-toxic, No Acute Distress - Head Exam Head Exam: ATRAUMATIC, NORMOCEPHALIC - Eye Exam Eye Exam: EOMI, Normal appearance Pupil Exam: PERRL - ENT Exam ENT Exam: Mucous Membranes Moist - Respiratory Exam Respiratory Exam: NORMAL BREATHING PATTERN - Cardiovascular Exam Cardiovascular Exam: REGULAR RHYTHM - GI/Abdominal Exam GI & Abdominal Exam: Soft, Tenderness (mild in RLQ, improved), Normal Bowel Sounds. absent: Distended, Firm, Guarding, Rigid, Rebound - Extremities Exam Extremities Exam: Normal Capillary Refill - Back Exam Back Exam: absent: CVA tenderness (L), CVA tenderness (R) - Neurological Exam Neurological Exam: Alert, Awake - Psychiatric Exam Psychiatric exam: Normal Affect, Normal Mood - Skin Skin Exam: Dry, Intact, Normal Color, Warm Assessment and Plan - Assessment and Plan (Free Text) Assessment: 78M with abd pain and suspected appendicitis Plan: -reg diet -Continue IV abx -Resume eliquis -Medical management as per primary team -Discussed with Dr. Jayme Rodriguez PGY2
[2019-03-18 12:00] LABS: BASO % 0.3 % (0.0-2.0); EOS # 0.2 K/uL (0.0-0.7); EOS % 4.1 % (0.0-4.0); HEMOGLOBIN 11.3 g/dL (12.0-18.0); LYMPH # 0.8 K/uL (1.0-4.3); LYMPH % 17.7 % (20.0-40.0); MEAN CELL VOLUME 90.8 fL (80.0-94.0); MEAN CORPUSCULAR HEMOGLOBIN 31.6 pg (27.0-31.0); MEAN CORPUSCULAR HGB CONC 34.8 g/dL (33.0-37.0); MEAN PLATELET VOLUME 8.1 fL (7.2-11.7); MONO # 0.7 K/uL (0.0-0.8); MONO % 16.6 % (0.0-10.0); NEUT # 2.6 K/uL (1.8-7.0); NEUT % 61.3 % (50.0-75.0); NRBC % 0.2 % (0.0-2.0); RBC 3.58 Mil/uL (4.40-5.90); RED CELL DISTRIBUTION WIDTH 13.5 % (11.5-14.5); WHITE BLOOD COUNT 4.3 K/uL (4.8-10.8)
[2019-03-18 12:15] LABS: ALB/GLOB RATIO 1.3 (1.0-2.1); ALBUMIN 3.5 g/dL (3.5-5.0); CALCIUM 9.1 mg/dl (8.6-10.4)
--- NOTE | 2019-03-18 14:56 | CP.PCM.PN ---
Subjective - Date & Time of Evaluation Date of Evaluation: 03/18/19 Time of Evaluation: 14:54 - Subjective Subjective: Patient is seen and examined No events overnight Objective - Vital Signs/Intake and Output Vital Signs (last 24 hours): Temp Pulse Resp BP Pulse Ox 98.1 F 63 20 164/78 H 95 03/18/19 07:05 03/18/19 07:34 03/18/19 07:05 03/18/19 07:05 03/18/19 07:05 Intake and Output: 03/18/19 03/18/19 06:59 18:59 Intake Total 1400 900 Output Total 675 Balance 725 900 - Medications Medications: Current Medications Amlodipine Besylate (Norvasc) 10 mg PO DAILY [facility] Last Admin: 03/18/19 09:22 Dose: 10 mg Apixaban (Eliquis) 5 mg PO BID [facility] Last Admin: 03/15/19 17:43 Dose: 5 mg Aspirin (Aspirin Chewable) 81 mg PO DAILY [facility] Last Admin: 03/18/19 09:22 Dose: 81 mg Calcium Carbonate (Tums) 500 mg PO BID [facility] Last Admin: 03/18/19 09:22 Dose: 500 mg Glimepiride (Amaryl) 4 mg PO DAILY [facility] Last Admin: 03/18/19 09:22 Dose: 4 mg Hydrochlorothiazide (Hydrodiuril) 25 mg PO DAILY [facility] Last Admin: 03/18/19 09:22 Dose: 25 mg Piperacillin Sod/Tazobactam Sod (Zosyn 3.375 Gm Iv Premix) 3.375 gm in 50 mls @ 100 mls/hr IVPB Q6H [facility]; Protocol Last Admin: 03/18/19 09:25 Dose: 100 mls/hr Sodium Chloride (Sodium Chloride 0.9%) 1,000 mls @ 110 mls/hr IV .Q9H6M [facility] Last Admin: 03/18/19 07:10 Dose: Not Given Losartan Potassium (Cozaar) 25 mg PO DAILY [facility] Last Admin: 03/18/19 09:22 Dose: 25 mg Metoprolol Succinate (Toprol Xl) 100 mg PO DAILY [facility] Last Admin: 03/18/19 09:22 Dose: 100 mg Rosuvastatin Calcium (Crestor) 10 mg PO HS [facility] Last Admin: 03/17/19 21:11 Dose: 10 mg - Labs Labs: 03/18/19 11:53 03/18/19 11:53 PT 13.6 SECONDS (9.7-12.2) H 03/17/19 07:54 INR 1.2 03/17/19 07:54 APTT 85.0 SECONDS (21-34) H D 03/17/19 07:54 - Head Exam Head Exam: NORMAL INSPECTION - Eye Exam Eye Exam: Normal appearance - ENT Exam ENT Exam: Mucous Membranes Moist - Respiratory Exam Respiratory Exam: Decreased Breath Sounds - Cardiovascular Exam Cardiovascular Exam: REGULAR RHYTHM, +S1, +S2 - GI/Abdominal Exam GI & Abdominal Exam: Soft, Normal Bowel Sounds - Extremities Exam Extremities Exam: Normal Inspection - Neurological Exam Neurological Exam: Alert, Oriented x3 - Psychiatric Exam Psychiatric exam: Normal Affect, Normal Mood Assessment and Plan (1) Bacteremia Status: Acute (2) Abdominal pain Status: Acute (3) Appendicitis with perforation Status: Acute (4) Hypertension Status: Acute (5) Diabetes mellitus Status: Chronic - Assessment and Plan (Free Text) Plan: Continue antibiotics Surgery on board Accu-Chek Insulin coverage Follow cultures DVT/GI prophylaxis
--- NOTE | 2019-03-18 20:41 | CP.PCM.PN ---
Subjective - Date & Time of Evaluation Date of Evaluation: 03/17/19 Time of Evaluation: 08:30 - Subjective Subjective: Patient seen and evaluated Denies chest pain and dyspnea Possible appendectomy soon Review Of Systems Constitutional: Positive for: Fever. Negative for: Chills, Sweats Eyes: Negative for: Vision Change Cardiovascular: Positive for: Chest Pain. Negative for: Palpitations, Edema Respiratory: Negative for: Shortness of Breath Gastrointestinal: Negative for: Nausea, Vomiting Musculoskeletal: Negative for: Back Pain, Leg Pain Neurological: Negative for: Weakness, Numbness, Headache, Dizziness Physical Exam - Physical Exam Appears: Non-toxic, No Acute Distress Skin: Normal Color, Warm, No Diaphoretic Head: Atraumatic, Normacephalic Eye(s): bilateral: Normal Inspection, PERRL, EOMI Oral Mucosa: Moist Neck: Normal ROM Chest: Symmetrical, No Tenderness Cardiovascular: Rhythm Regular, Other (Tachycardic, Normal S1,S2) Respiratory: Decreased Breath Sounds, Rales (at the right base), No Rhonchi, No Wheezing Gastrointestinal/Abdominal: Soft, No Tenderness, No Distention Extremity: Bilateral: Atraumatic, No Pedal Edema, Normal Color And Temperature Pulses: Left Dorsalis Pedis: Normal, Right Dorsalis Pedis: Normal Neurological/Psych: Oriented x3, Normal Speech Gait: Steady Assessment and Plan - Assessment and Plan (Free Text) Assessment: 78 M with hx of CABG, HTN, CKD on HD admitted for chest pain Recent cath 12/2018: Patent grafts ECHO 10/29: Normal EF Medical management Objective - Vital Signs/Intake and Output Vital Signs (last 24 hours): Temp Pulse Resp BP Pulse Ox 98.5 F 63 20 144/70 97 03/18/19 15:49 03/18/19 15:49 03/18/19 15:49 03/18/19 15:49 03/18/19 15:49 Intake and Output: 03/18/19 03/19/19 18:59 06:59 Intake Total 900 Balance 900 - Medications Medications: Current Medications Amlodipine Besylate (Norvasc) 10 mg PO DAILY [facility] Last Admin: 03/18/19 09:22 Dose: 10 mg Apixaban (Eliquis) 5 mg PO BID [facility] Last Admin: 03/18/19 16:59 Dose: 5 mg Aspirin (Aspirin Chewable) 81 mg PO DAILY [facility] Last Admin: 03/18/19 09:22 Dose: 81 mg Calcium Carbonate (Tums) 500 mg PO BID [facility] Last Admin: 03/18/19 17:01 Dose: 500 mg Glimepiride (Amaryl) 4 mg PO DAILY [facility] Last Admin: 03/18/19 09:22 Dose: 4 mg Hydrochlorothiazide (Hydrodiuril) 25 mg PO DAILY [facility] Last Admin: 03/18/19 09:22 Dose: 25 mg Piperacillin Sod/Tazobactam Sod (Zosyn 3.375 Gm Iv Premix) 3.375 gm in 50 mls @ 100 mls/hr IVPB Q6H [facility]; Protocol Last Admin: 03/18/19 16:30 Dose: 100 mls/hr Sodium Chloride (Sodium Chloride 0.9%) 1,000 mls @ 110 mls/hr IV .Q9H6M [facility] Last Admin: 03/18/19 17:00 Dose: Not Given Losartan Potassium (Cozaar) 25 mg PO DAILY [facility] Last Admin: 03/18/19 09:22 Dose: 25 mg Metoprolol Succinate (Toprol Xl) 100 mg PO DAILY [facility] Last Admin: 03/18/19 09:22 Dose: 100 mg Rosuvastatin Calcium (Crestor) 10 mg PO HS [facility] Last Admin: 03/17/19 21:11 Dose: 10 mg - Labs Labs: 03/18/19 11:53 03/18/19 11:53 PT 13.6 SECONDS (9.7-12.2) H 03/17/19 07:54 INR 1.2 03/17/19 07:54 APTT 85.0 SECONDS (21-34) H D 03/17/19 07:54
--- NOTE | 2019-03-18 20:42 | CP.PCM.PN ---
Subjective - Date & Time of Evaluation Date of Evaluation: 03/18/19 Time of Evaluation: 14:25 - Subjective Subjective: Patient seen and evaluated Denies chest pain and dyspnea appendectomy cancelled Review Of Systems Constitutional: Positive for: Fever. Negative for: Chills, Sweats Eyes: Negative for: Vision Change Cardiovascular: Positive for: Chest Pain. Negative for: Palpitations, Edema Respiratory: Negative for: Shortness of Breath Gastrointestinal: Negative for: Nausea, Vomiting Musculoskeletal: Negative for: Back Pain, Leg Pain Neurological: Negative for: Weakness, Numbness, Headache, Dizziness Physical Exam - Physical Exam Appears: Non-toxic, No Acute Distress Skin: Normal Color, Warm, No Diaphoretic Head: Atraumatic, Normacephalic Eye(s): bilateral: Normal Inspection, PERRL, EOMI Oral Mucosa: Moist Neck: Normal ROM Chest: Symmetrical, No Tenderness Cardiovascular: Rhythm Regular, Other (Tachycardic, Normal S1,S2) Respiratory: Decreased Breath Sounds, Rales (at the right base), No Rhonchi, No Wheezing Gastrointestinal/Abdominal: Soft, No Tenderness, No Distention Extremity: Bilateral: Atraumatic, No Pedal Edema, Normal Color And Temperature Pulses: Left Dorsalis Pedis: Normal, Right Dorsalis Pedis: Normal Neurological/Psych: Oriented x3, Normal Speech Gait: Steady Assessment and Plan - Assessment and Plan (Free Text) Assessment: 78 M with hx of CABG, HTN, CKD on HD admitted for chest pain Recent cath 12/2018: Patent grafts ECHO 10/29: Normal EF Medical management Objective - Vital Signs/Intake and Output Vital Signs (last 24 hours): Temp Pulse Resp BP Pulse Ox 98.5 F 63 20 144/70 97 03/18/19 15:49 03/18/19 15:49 03/18/19 15:49 03/18/19 15:49 03/18/19 15:49 Intake and Output: 03/18/19 03/19/19 18:59 06:59 Intake Total 900 Balance 900 - Medications Medications: Current Medications Amlodipine Besylate (Norvasc) 10 mg PO DAILY [facility] Last Admin: 03/18/19 09:22 Dose: 10 mg Apixaban (Eliquis) 5 mg PO BID [facility] Last Admin: 03/18/19 16:59 Dose: 5 mg Aspirin (Aspirin Chewable) 81 mg PO DAILY [facility] Last Admin: 03/18/19 09:22 Dose: 81 mg Calcium Carbonate (Tums) 500 mg PO BID [facility] Last Admin: 03/18/19 17:01 Dose: 500 mg Glimepiride (Amaryl) 4 mg PO DAILY [facility] Last Admin: 03/18/19 09:22 Dose: 4 mg Hydrochlorothiazide (Hydrodiuril) 25 mg PO DAILY [facility] Last Admin: 03/18/19 09:22 Dose: 25 mg Piperacillin Sod/Tazobactam Sod (Zosyn 3.375 Gm Iv Premix) 3.375 gm in 50 mls @ 100 mls/hr IVPB Q6H [facility]; Protocol Last Admin: 03/18/19 16:30 Dose: 100 mls/hr Sodium Chloride (Sodium Chloride 0.9%) 1,000 mls @ 110 mls/hr IV .Q9H6M [facility] Last Admin: 03/18/19 17:00 Dose: Not Given Losartan Potassium (Cozaar) 25 mg PO DAILY [facility] Last Admin: 03/18/19 09:22 Dose: 25 mg Metoprolol Succinate (Toprol Xl) 100 mg PO DAILY [facility] Last Admin: 03/18/19 09:22 Dose: 100 mg Rosuvastatin Calcium (Crestor) 10 mg PO HS [facility] Last Admin: 03/17/19 21:11 Dose: 10 mg - Labs Labs: 03/18/19 11:53 03/18/19 11:53 PT 13.6 SECONDS (9.7-12.2) H 03/17/19 07:54 INR 1.2 03/17/19 07:54 APTT 85.0 SECONDS (21-34) H D 03/17/19 07:54
--- NOTE | 2019-03-18 23:10 | CP.PCM.PN ---
Subjective - Date & Time of Evaluation Date of Evaluation: 03/18/19 Time of Evaluation: 07:00 - Subjective Subjective: patient with fever abdomninal pain and positive blood cultures for E Coli Objective - Vital Signs/Intake and Output Vital Signs (last 24 hours): Temp Pulse Resp BP Pulse Ox 98.5 F 63 20 144/70 97 03/18/19 15:49 03/18/19 15:49 03/18/19 15:49 03/18/19 15:49 03/18/19 15:49 Intake and Output: 03/18/19 03/19/19 18:59 06:59 Intake Total 900 500 Output Total 350 Balance 900 150 - Medications Medications: Current Medications Amlodipine Besylate (Norvasc) 10 mg PO DAILY [facility] Last Admin: 03/18/19 09:22 Dose: 10 mg Apixaban (Eliquis) 5 mg PO BID [facility] Last Admin: 03/18/19 16:59 Dose: 5 mg Aspirin (Aspirin Chewable) 81 mg PO DAILY [facility] Last Admin: 03/18/19 09:22 Dose: 81 mg Calcium Carbonate (Tums) 500 mg PO BID [facility] Last Admin: 03/18/19 17:01 Dose: 500 mg Glimepiride (Amaryl) 4 mg PO DAILY [facility] Last Admin: 03/18/19 09:22 Dose: 4 mg Hydrochlorothiazide (Hydrodiuril) 25 mg PO DAILY [facility] Last Admin: 03/18/19 09:22 Dose: 25 mg Piperacillin Sod/Tazobactam Sod (Zosyn 3.375 Gm Iv Premix) 3.375 gm in 50 mls @ 100 mls/hr IVPB Q6H [facility]; Protocol Last Admin: 03/18/19 20:59 Dose: 100 mls/hr Sodium Chloride (Sodium Chloride 0.9%) 1,000 mls @ 110 mls/hr IV .Q9H6M [facility] Last Admin: 03/18/19 17:00 Dose: Not Given Losartan Potassium (Cozaar) 25 mg PO DAILY [facility] Last Admin: 03/18/19 09:22 Dose: 25 mg Metoprolol Succinate (Toprol Xl) 100 mg PO DAILY [facility] Last Admin: 03/18/19 09:22 Dose: 100 mg Rosuvastatin Calcium (Crestor) 10 mg PO [facility] Last Admin: 03/18/19 20:59 Dose: 10 mg - Labs Labs: 03/18/19 11:53 03/18/19 11:53 PT 13.6 SECONDS (9.7-12.2) H 03/17/19 07:54 INR 1.2 03/17/19 07:54 APTT 85.0 SECONDS (21-34) H D 03/17/19 07:54 - Constitutional Appears: Well - Head Exam Head Exam: ATRAUMATIC, NORMAL INSPECTION, NORMOCEPHALIC - Eye Exam Eye Exam: EOMI, Normal appearance, PERRL Pupil Exam: NORMAL ACCOMODATION, PERRL - ENT Exam ENT Exam: Mucous Membranes Moist, Normal Exam - Neck Exam Neck Exam: Full ROM, Normal Inspection. absent: Lymphadenopathy - Respiratory Exam Respiratory Exam: Clear to Ausculation Bilateral, NORMAL BREATHING PATTERN - Cardiovascular Exam Cardiovascular Exam: REGULAR RHYTHM, +S1, +S2. absent: Murmur - GI/Abdominal Exam GI & Abdominal Exam: Soft, Normal Bowel Sounds. absent: Tenderness - Rectal Exam Rectal Exam: Deferred - Exam Exam: NORMAL INSPECTION - Extremities Exam Extremities Exam: Full ROM, Normal Capillary Refill, Normal Inspection. absent: Joint Swelling, Pedal Edema - Back Exam Back Exam: NORMAL INSPECTION - Neurological Exam Neurological Exam: Alert, Awake, CN II-XII Intact, Normal Gait, Oriented x3 - Psychiatric Exam Psychiatric exam: Normal Affect, Normal Mood - Skin Skin Exam: Dry, Intact, Normal Color, Warm Assessment and Plan (1) Bacteremia Status: Acute (2) Abdominal pain Status: Acute (3) Chest pain Status: Acute (4) Abdominal pain Status: Acute (5) Appendicitis with perforation Status: Acute - Assessment and Plan (Free Text) Assessment: e coli bacteremia / sepsis- abd source suspected Hx of appendicitis in 2018 no surgical intervention r/o occult malignancy , abscess may need short piece handler antibiotics, GI consult to r/o occult malignancy as well as follow up imaging
[2019-03-19] MEDS: Piperacill/Tazo 3.375gm in Dex 3.375 GM/50 ML BAG IVPB SCH ×4 (03:30→21:15)
[2019-03-19 07:10] LABS: BASO % 0.3 % (0.0-2.0); EOS # 0.3 K/uL (0.0-0.7); EOS % 4.6 % (0.0-4.0); HEMOGLOBIN 12.2 g/dL (12.0-18.0); MEAN CELL VOLUME 92.1 fL (80.0-94.0); MEAN CORPUSCULAR HEMOGLOBIN 31.3 pg (27.0-31.0); MEAN PLATELET VOLUME 8.1 fL (7.2-11.7); MONO # 0.9 K/uL (0.0-0.8); MONO % 15.2 % (0.0-10.0); NEUT # 3.7 K/uL (1.8-7.0); NEUT % 62.9 % (50.0-75.0); NRBC % 0.1 % (0.0-2.0); RBC 3.89 Mil/uL (4.40-5.90); RED CELL DISTRIBUTION WIDTH 13.4 % (11.5-14.5)
[2019-03-19 07:32] LABS: ALB/GLOB RATIO 1.3 (1.0-2.1); ALBUMIN 3.8 g/dL (3.5-5.0); CALCIUM 9.4 mg/dl (8.6-10.4)
[2019-03-19] MEDS: Calcium Carbonate 500 mg Chewable Antacid Tab PO SCH ×2 (09:54→17:31)
[2019-03-19] MEDS: Metoprolol Succinate 100 mg XL Tab PO SCH (09:55)
[2019-03-19] MEDS: Sodium Chloride 0.9% 1,000 ML IV SCH ×2 (10:10)
--- NOTE | 2019-03-19 16:50 | CP.PCM.PN ---
<Lon Hilton - Last Filed: 03/19/19 18:24> Subjective - Date & Time of Evaluation Date of Evaluation: 03/19/19 Time of Evaluation: 10:45 - Subjective Subjective: PGY2 Cardio Note for Dr. Yeung Patient seen and examined this morning at bedside. No acute events over night. Patient is feeling well and has no complaints. He denies any chest pain or shortness of breath. Patient is hopeful he can go home today. Objective - Vital Signs/Intake and Output Vital Signs (last 24 hours): Temp Pulse Resp BP Pulse Ox 98.2 F 67 20 144/69 95 03/19/19 07:00 03/19/19 07:00 03/19/19 07:00 03/19/19 07:00 03/19/19 07:00 Intake and Output: 03/19/19 03/19/19 06:59 18:59 Intake Total 500 580 Output Total 350 Balance 150 580 - Medications Medications: Current Medications Amlodipine Besylate (Norvasc) 10 mg PO DAILY [facility] Last Admin: 03/19/19 09:55 Dose: 10 mg Apixaban (Eliquis) 5 mg PO BID [facility] Last Admin: 03/19/19 09:54 Dose: 5 mg Aspirin (Aspirin Chewable) 81 mg PO DAILY [facility] Last Admin: 03/19/19 09:55 Dose: 81 mg Calcium Carbonate (Tums) 500 mg PO BID [facility] Last Admin: 03/19/19 09:54 Dose: 500 mg Glimepiride (Amaryl) 4 mg PO DAILY [facility] Last Admin: 03/19/19 09:55 Dose: 4 mg Hydrochlorothiazide (Hydrodiuril) 25 mg PO DAILY [facility] Last Admin: 03/19/19 09:55 Dose: 25 mg Piperacillin Sod/Tazobactam Sod (Zosyn 3.375 Gm Iv Premix) 3.375 gm in 50 mls @ 100 mls/hr IVPB Q6H [facility]; Protocol Last Admin: 03/19/19 16:07 Dose: 100 mls/hr Losartan Potassium (Cozaar) 25 mg PO DAILY [facility] Last Admin: 03/19/19 09:55 Dose: 25 mg Metoprolol Succinate (Toprol Xl) 100 mg PO DAILY [facility] Last Admin: 03/19/19 09:55 Dose: 100 mg Rosuvastatin Calcium (Crestor) 10 mg PO HS [facility] Last Admin: 03/18/19 20:59 Dose: 10 mg - Labs Labs: 03/19/19 06:54 03/19/19 06:54 PT 13.6 SECONDS (9.7-12.2) H 03/17/19 07:54 INR 1.2 03/17/19 07:54 APTT 85.0 SECONDS (21-34) H D 03/17/19 07:54 - Constitutional Appears: Non-toxic, No Acute Distress - Head Exam Head Exam: ATRAUMATIC, NORMOCEPHALIC - Eye Exam Eye Exam: Normal appearance - ENT Exam ENT Exam: Mucous Membranes Moist - Neck Exam Neck Exam: Normal Inspection. absent: Lymphadenopathy - Respiratory Exam Respiratory Exam: Decreased Breath Sounds (bases), NORMAL BREATHING PATTERN. absent: Accessory Muscle Use, Rales, Rhonchi, Wheezes, Respiratory Distress - Cardiovascular Exam Cardiovascular Exam: REGULAR RHYTHM, +S1, +S2 - GI/Abdominal Exam GI & Abdominal Exam: Soft. absent: Distended, Firm, Guarding, Rigid, Rebound - Extremities Exam Extremities Exam: absent: Calf Tenderness, Pedal Edema, Tenderness - Neurological Exam Neurological Exam: Alert, Awake, Oriented x3 - Psychiatric Exam Psychiatric exam: Normal Affect, Normal Mood - Skin Skin Exam: Dry, Warm Assessment and Plan - Assessment and Plan (Free Text) Plan: 78 M with hx of CABG, HTN, CKD on HD admitted for chest pain. Chest pain has resolved Recent cath 12/2018: Patent grafts Trops negative ECHO 10/29: Normal EF Medical management Case discussed with Dr. Gamal Hilton PYG2 <Darnell Yeung - Last Filed: 03/20/19 06:35> Objective - Vital Signs/Intake and Output Vital Signs (last 24 hours): Temp Pulse Resp BP Pulse Ox 98 F 64 20 166/75 H 96 03/19/19 23:00 03/19/19 23:00 03/19/19 23:00 03/19/19 23:00 03/19/19 23:00 Intake and Output: 03/19/19 03/20/19 18:59 06:59 Intake Total 780 200 Balance 780 200 - Medications Medications: Current Medications Amlodipine Besylate (Norvasc) 10 mg PO DAILY [facility] Last Admin: 03/19/19 09:55 Dose: 10 mg Apixaban (Eliquis) 5 mg PO BID [facility] Last Admin: 03/19/19 17:31 Dose: 5 mg Aspirin (Aspirin Chewable) 81 mg PO DAILY [facility] Last Admin: 03/19/19 09:55 Dose: 81 mg Calcium Carbonate (Tums) 500 mg PO BID [facility] Last Admin: 03/19/19 17:31 Dose: 500 mg Glimepiride (Amaryl) 4 mg PO DAILY [facility] Last Admin: 03/19/19 09:55 Dose: 4 mg Hydrochlorothiazide (Hydrodiuril) 25 mg PO DAILY [facility] Last Admin: 03/19/19 09:55 Dose: 25 mg Piperacillin Sod/Tazobactam Sod (Zosyn 2.25 Gm Iv Premix) 2.25 gm in 50 mls @ 100 mls/hr IVPB Q6H [facility]; Protocol Last Admin: 03/20/19 04:30 Dose: 100 mls/hr Losartan Potassium (Cozaar) 25 mg PO DAILY [facility] Last Admin: 03/19/19 09:55 Dose: 25 mg Metoprolol Succinate (Toprol Xl) 100 mg PO DAILY [facility] Last Admin: 03/19/19 09:55 Dose: 100 mg Rosuvastatin Calcium (Crestor) 10 mg PO HS [facility] Last Admin: 03/19/19 21:14 Dose: 10 mg - Labs Labs: 03/19/19 06:54 03/19/19 06:54 PT 13.6 SECONDS (9.7-12.2) H 03/17/19 07:54 INR 1.2 03/17/19 07:54 APTT 85.0 SECONDS (21-34) H D 03/17/19 07:54 Assessment and Plan - Assessment and Plan (Free Text) Plan: Patient seen and evaluated personally by me. Plan of care d/w the Resident and as documented
--- NOTE | 2019-03-19 19:19 | CP.PCM.PN ---
Subjective - Date & Time of Evaluation Date of Evaluation: 03/19/19 Time of Evaluation: 19:19 Objective - Vital Signs/Intake and Output Vital Signs (last 24 hours): Temp Pulse Resp BP Pulse Ox 97.7 F 63 20 147/81 95 03/19/19 15:30 03/19/19 15:30 03/19/19 15:30 03/19/19 15:30 03/19/19 15:30 Intake and Output: 03/19/19 03/20/19 18:59 06:59 Intake Total 780 Balance 780 - Medications Medications: Current Medications Amlodipine Besylate (Norvasc) 10 mg PO DAILY [facility] Last Admin: 03/19/19 09:55 Dose: 10 mg Apixaban (Eliquis) 5 mg PO BID [facility] Last Admin: 03/19/19 17:31 Dose: 5 mg Aspirin (Aspirin Chewable) 81 mg PO DAILY [facility] Last Admin: 03/19/19 09:55 Dose: 81 mg Calcium Carbonate (Tums) 500 mg PO BID [facility] Last Admin: 03/19/19 17:31 Dose: 500 mg Glimepiride (Amaryl) 4 mg PO DAILY [facility] Last Admin: 03/19/19 09:55 Dose: 4 mg Hydrochlorothiazide (Hydrodiuril) 25 mg PO DAILY [facility] Last Admin: 03/19/19 09:55 Dose: 25 mg Piperacillin Sod/Tazobactam Sod (Zosyn 3.375 Gm Iv Premix) 3.375 gm in 50 mls @ 100 mls/hr IVPB Q6H [facility]; Protocol Last Admin: 03/19/19 16:07 Dose: 100 mls/hr Losartan Potassium (Cozaar) 25 mg PO DAILY [facility] Last Admin: 03/19/19 09:55 Dose: 25 mg Metoprolol Succinate (Toprol Xl) 100 mg PO DAILY [facility] Last Admin: 03/19/19 09:55 Dose: 100 mg Rosuvastatin Calcium (Crestor) 10 mg PO HS [facility] Last Admin: 03/18/19 20:59 Dose: 10 mg - Labs Labs: 03/19/19 06:54 03/19/19 06:54 PT 13.6 SECONDS (9.7-12.2) H 03/17/19 07:54 INR 1.2 03/17/19 07:54 APTT 85.0 SECONDS (21-34) H D 03/17/19 07:54 Assessment and Plan (1) Bacteremia Status: Acute (2) Abdominal pain Status: Acute (3) Appendicitis with perforation Status: Acute (4) Hypertension Status: Acute (5) Diabetes mellitus Status: Chronic
[2019-03-19] MEDS: Piperacill/Tazo 2.25gm in Dex 2.25 GM/50 ML BAG IVPB SCH (21:16)
[2019-03-20] MEDS: Piperacill/Tazo 2.25gm in Dex 2.25 GM/50 ML BAG IVPB SCH ×4 (04:30→22:05)
[2019-03-20] MEDS: Calcium Carbonate 500 mg Chewable Antacid Tab PO SCH ×2 (09:19→17:29)
[2019-03-20] MEDS: Metoprolol Succinate 100 mg XL Tab PO SCH (09:19)
--- NOTE | 2019-03-20 17:15 | CP.PCM.PCO ---
Physician Communication Note - Physician Communication Note Physician Communication Note: total of 3 weeks of IV antibiotics as per
--- NOTE | 2019-03-20 18:43 | CP.PCM.PN ---
Subjective - Date & Time of Evaluation Date of Evaluation: 03/20/19 Time of Evaluation: 18:43 Objective - Vital Signs/Intake and Output Vital Signs (last 24 hours): Temp Pulse Resp BP Pulse Ox 97.8 F 76 20 137/70 97 03/20/19 15:56 03/20/19 15:56 03/20/19 15:56 03/20/19 15:56 03/20/19 15:56 Intake and Output: 03/20/19 03/20/19 06:59 18:59 Intake Total 200 450 Balance 200 450 - Medications Medications: Current Medications Amlodipine Besylate (Norvasc) 10 mg PO DAILY [facility] Last Admin: 03/20/19 09:19 Dose: 10 mg Apixaban (Eliquis) 5 mg PO BID [facility] Last Admin: 03/20/19 17:25 Dose: 5 mg Aspirin (Aspirin Chewable) 81 mg PO DAILY [facility] Last Admin: 03/20/19 09:19 Dose: 81 mg Calcium Carbonate (Tums) 500 mg PO BID [facility] Last Admin: 03/20/19 17:29 Dose: 500 mg Glimepiride (Amaryl) 4 mg PO DAILY [facility] Last Admin: 03/20/19 09:19 Dose: 4 mg Hydrochlorothiazide (Hydrodiuril) 25 mg PO DAILY [facility] Last Admin: 03/20/19 09:19 Dose: 25 mg Piperacillin Sod/Tazobactam Sod (Zosyn 2.25 Gm Iv Premix) 2.25 gm in 50 mls @ 1 00 mls/hr IVPB Q6H [facility]; Protocol Last Admin: 03/20/19 17:00 Dose: 100 mls/hr Losartan Potassium (Cozaar) 25 mg PO DAILY [facility] Last Admin: 03/20/19 09:19 Dose: 25 mg Metoprolol Succinate (Toprol Xl) 100 mg PO DAILY [facility] Last Admin: 03/20/19 09:19 Dose: 100 mg Rosuvastatin Calcium (Crestor) 10 mg PO HS [facility] Last Admin: 03/19/19 21:14 Dose: 10 mg - Labs Labs: 03/19/19 06:54 03/19/19 06:54 PT 13.6 SECONDS (9.7-12.2) H 03/17/19 07:54 INR 1.2 03/17/19 07:54 APTT 85.0 SECONDS (21-34) H D 03/17/19 07:54 Assessment and Plan (1) Bacteremia Status: Acute (2) Abdominal pain Status: Acute (3) Appendicitis with perforation Status: Acute (4) Hypertension Status: Acute (5) Diabetes mellitus Status: Chronic
--- NOTE | 2019-03-20 19:01 | CP.PCM.PN ---
Subjective - Date & Time of Evaluation Date of Evaluation: 03/20/19 Time of Evaluation: 08:00 - Subjective Subjective: blood + for E coli sensitive to levaquin Objective - Vital Signs/Intake and Output Vital Signs (last 24 hours): Temp Pulse Resp BP Pulse Ox 97.8 F 76 20 137/70 97 03/20/19 15:56 03/20/19 15:56 03/20/19 15:56 03/20/19 15:56 03/20/19 15:56 Intake and Output: 03/20/19 03/21/19 18:59 06:59 Intake Total 450 Balance 450 - Medications Medications: Current Medications Amlodipine Besylate (Norvasc) 10 mg PO DAILY [facility] Last Admin: 03/20/19 09:19 Dose: 10 mg Apixaban (Eliquis) 5 mg PO BID [facility] Last Admin: 03/20/19 17:25 Dose: 5 mg Aspirin (Aspirin Chewable) 81 mg PO DAILY [facility] Last Admin: 03/20/19 09:19 Dose: 81 mg Calcium Carbonate (Tums) 500 mg PO BID [facility] Last Admin: 03/20/19 17:29 Dose: 500 mg Glimepiride (Amaryl) 4 mg PO DAILY [facility] Last Admin: 03/20/19 09:19 Dose: 4 mg Hydrochlorothiazide (Hydrodiuril) 25 mg PO DAILY [facility] Last Admin: 03/20/19 09:19 Dose: 25 mg Piperacillin Sod/Tazobactam Sod (Zosyn 2.25 Gm Iv Premix) 2.25 gm in 50 mls @ 100 mls/hr IVPB Q6H [facility]; Protocol Last Admin: 03/20/19 17:00 Dose: 100 mls/hr Losartan Potassium (Cozaar) 25 mg PO DAILY [facility] Last Admin: 03/20/19 09:19 Dose: 25 mg Metoprolol Succinate (Toprol Xl) 100 mg PO DAILY [facility] Last Admin: 03/20/19 09:19 Dose: 100 mg Rosuvastatin Calcium (Crestor) 10 mg PO HS [facility] Last Admin: 03/19/19 21:14 Dose: 10 mg - Labs Labs: 03/19/19 06:54 03/19/19 06:54 PT 13.6 SECONDS (9.7-12.2) H 03/17/19 07:54 INR 1.2 03/17/19 07:54 APTT 85.0 SECONDS (21-34) H D 03/17/19 07:54 - Constitutional Appears: No Acute Distress, Chronically Ill - Head Exam Head Exam: ATRAUMATIC, NORMAL INSPECTION, NORMOCEPHALIC - Eye Exam Eye Exam: EOMI, Normal appearance, PERRL Pupil Exam: NORMAL ACCOMODATION, PERRL - ENT Exam ENT Exam: Mucous Membranes Moist, Normal Exam - Neck Exam Neck Exam: Full ROM, Normal Inspection. absent: Lymphadenopathy - Respiratory Exam Respiratory Exam: Clear to Ausculation Bilateral, NORMAL BREATHING PATTERN - Cardiovascular Exam Cardiovascular Exam: REGULAR RHYTHM, +S1, +S2. absent: Murmur - GI/Abdominal Exam GI & Abdominal Exam: Soft, Normal Bowel Sounds. absent: Tenderness - Rectal Exam Rectal Exam: Deferred - Extremities Exam Extremities Exam: Full ROM, Normal Capillary Refill, Normal Inspection. absent: Joint Swelling, Pedal Edema - Back Exam Back Exam: NORMAL INSPECTION - Neurological Exam Neurological Exam: Alert, Awake, CN II-XII Intact, Normal Gait, Oriented x3 - Psychiatric Exam Psychiatric exam: Normal Affect, Normal Mood - Skin Skin Exam: Dry, Intact, Normal Color, Warm Assessment and Plan (1) Bacteremia Status: Acute (2) Abdominal pain Status: Acute (3) Chest pain Status: Acute (4) Abdominal pain Status: Acute (5) Appendicitis with perforation Status: Acute - Assessment and Plan (Free Text) Assessment: ok to d/c on POI rx cont PO Levaquin for 3 more weeks with follow up
[2019-03-20] MEDS ORDERED: Ciprofloxacin 400mg/200ml D5W 400 MG/200 ML BAG IVPB SCH (23:30)
[2019-03-21 08:21] VITALS: BP 142/76; PULSE 66; TEMP 98.1; O2SAT 94
[2019-03-21] MEDS: Metoprolol Succinate 100 mg XL Tab PO SCH (09:22)
[2019-03-21] MEDS: Calcium Carbonate 500 mg Chewable Antacid Tab PO SCH (09:40)
--- NOTE | 2019-03-21 12:01 | CP.PCM.PN ---
Subjective - Date & Time of Evaluation Date of Evaluation: 03/21/19 Time of Evaluation: 12:01 - Subjective Subjective: alert, oriented, ambulatory no acute distress. Objective - Vital Signs/Intake and Output Vital Signs (last 24 hours): Temp Pulse Resp BP Pulse Ox 98.1 F 66 20 142/76 94 L 03/21/19 07:00 03/21/19 07:00 03/21/19 07:00 03/21/19 07:00 03/21/19 07:00 Intake and Output: 03/21/19 03/21/19 06:59 18:59 Intake Total 450 Balance 450 - Medications Medications: Current Medications Amlodipine Besylate (Norvasc) 10 mg PO DAILY [facility] Last Admin: 03/21/19 09:22 Dose: 10 mg Apixaban (Eliquis) 5 mg PO BID [facility] Last Admin: 03/21/19 09:22 Dose: 5 mg Aspirin (Aspirin Chewable) 81 mg PO DAILY [facility] Last Admin: 03/21/19 09:22 Dose: 81 mg Calcium Carbonate (Tums) 500 mg PO BID [facility] Last Admin: 03/21/19 09:40 Dose: 500 mg Glimepiride (Amaryl) 4 mg PO DAILY [facility] Last Admin: 03/21/19 09:22 Dose: 4 mg Hydrochlorothiazide (Hydrodiuril) 25 mg PO DAILY [facility] Last Admin: 03/21/19 09:23 Dose: 25 mg Ciprofloxacin (Cipro 400mg/200ml Dsw) 400 mg in 200 mls @ 133 mls/hr IVPB Q12H [facility]; Protocol Last Admin: 03/20/19 23:55 Dose: 133 mls/hr Losartan Potassium (Cozaar) 25 mg PO DAILY [facility] Last Admin: 03/21/19 09:22 Dose: 25 mg Metoprolol Succinate (Toprol Xl) 100 mg PO DAILY [facility] Last Admin: 03/21/19 09:22 Dose: 100 mg Rosuvastatin Calcium (Crestor) 10 mg PO HS [facility] Last Admin: 03/20/19 22:05 Dose: 10 mg - Labs Labs: 03/19/19 06:54 03/19/19 06:54 PT 13.6 SECONDS (9.7-12.2) H 03/17/19 07:54 INR 1.2 03/17/19 07:54 APTT 85.0 SECONDS (21-34) H D 03/17/19 07:54 Assessment and Plan - Assessment and Plan (Free Text) Assessment: 78 year old male admitted with abdominal pain, bacteremia, seen and examined. Alert and orientedx3, no abdominal pain or distress. Cleared by DR Romo, discussed with DR Madison, plan to discharge home on levaquin 500mg po daily x 3 weeks. No surgical intervention is planned. Advised to follow up with PMD in 1 week.
--- NOTE | 2019-03-21 16:58 | CP.PCM.DIS ---
Provider - Provider Date of Admission: 03/17/19 12:00 Attending physician: Marshall Madison MD Consults: 03/14/19 17:08 Physician Consult Routine Comment: Consulting Provider: Darnell Yeung Consulting Physician: Darnell Yeung Reason for Consult: Chest Pain 03/14/19 17:11 Physician Consult Routine Comment: Consulting Provider: Dale Romo Consulting Physician: Dale Romo Reason for Consult: fever 03/15/19 14:49 General Surgery Consult Routine Comment: Ct Abdomen shows suspicious acute appendicitis. Consulting Provider: Spenser Delacruz Jr. Consulting Physician: Spenser Delacruz Jr. Reason for Consult: susp. acute appendicitis Diagnosis - Discharge Diagnosis (1) Bacteremia Status: Acute (2) Abdominal pain Status: Acute (3) Appendicitis with perforation Status: Acute (4) Hypertension Status: Acute (5) Diabetes mellitus Status: Chronic Hospital Course - Lab Results Lab Results: Micro Results 03/19/19 20:12 Blood Blood Culture - Preliminary NO GROWTH AFTER 24 HOURS 03/19/19 20:12 Blood Blood Culture - Preliminary NO GROWTH AFTER 24 HOURS 03/14/19 11:45 Blood Blood Culture - Final NO GROWTH AFTER 5 DAYS 03/14/19 11:45 Blood Gram Stain - Final TEST NOT PERFORMED 03/14/19 12:30 Blood Blood Culture - Final Escherichia Coli 03/14/19 12:30 Blood Gram Stain - Final Most Recent Lab Values WBC 6.0 K/uL (4.8-10.8) 03/19/19 06:54 RBC 3.89 Mil/uL (4.40-5.90) L 03/19/19 06:54 Hgb 12.2 g/dL (12.0-18.0) 03/19/19 06:54 Hct 35.9 % (35.0-51.0) 03/19/19 06:54 MCV 92.1 fL (80.0-94.0) 03/19/19 06:54 MCH 31.3 pg (27.0-31.0) H 03/19/19 06:54 MCHC 34.0 g/dL (33.0-37.0) 03/19/19 06:54 RDW 13.4 % (11.5-14.5) 03/19/19 06:54 Plt Count 149 K/uL (130-400) 03/19/19 06:54 MPV 8.1 fL (7.2-11.7) 03/19/19 06:54 Neut % (Auto) 62.9 % (50.0-75.0) 03/19/19 06:54 Lymph % (Auto) 17.0 % (20.0-40.0) L 03/19/19 06:54 Stevens % (Auto) 15.2 % (0.0-10.0) H 03/19/19 06:54 Eos % (Auto) 4.6 % (0.0-4.0) H 03/19/19 06:54 Baso % (Auto) 0.3 % (0.0-2.0) 03/19/19 06:54 Neut # (Auto) 3.7 K/uL (1.8-7.0) 03/19/19 06:54 Lymph # (Auto) 1.0 K/uL (1.0-4.3) 03/19/19 06:54 Stevens # (Auto) 0.9 K/uL (0.0-0.8) H 03/19/19 06:54 Eos # (Auto) 0.3 K/uL (0.0-0.7) 03/19/19 06:54 Baso # (Auto) 0.0 K/uL (0.0-0.2) 03/19/19 06:54 Neutrophils % (Manual) 86 % (50-75) H 03/16/19 08:20 Band Neutrophils % 7 % (0-2) H 03/14/19 11:45 Lymphocytes % (Manual) 4 % (20-40) L 03/16/19 08:20 Monocytes % (Manual) 9 % (0-10) 03/16/19 08:20 Eosinophils % (Manual) 1 % (0-4) 03/16/19 08:20 Basophils % (Manual) 1 % (0-2) 03/15/19 17:26 Nucleated RBC % 1 % (0-0) H 03/14/19 11:45 Toxic Granulation Present 03/16/19 08:20 Platelet Estimate Slightly decreased (NORMAL) L 03/16/19 08:20 RBC Morphology Normal 03/14/19 11:45 Anisocytosis (manual) Slight 03/16/19 08:20 PT 13.6 SECONDS (9.7-12.2) H 03/17/19 07:54 INR 1.2 03/17/19 07:54 APTT 85.0 SECONDS (21-34) H D 03/17/19 07:54 pO2 50 mm/Hg (30-55) 03/14/19 13:25 VBG pH 7.34 (7.32-7.43) 03/14/19 13:25 VBG pCO2 48 mmHg (40-60) 03/14/19 13:25 VBG HCO3 24.2 mmol/L 03/14/19 13:25 VBG Total CO2 27.4 mmol/L (22-28) 03/14/19 13:25 VBG O2 Sat (Calc) 85.8 % (40-65) H 03/14/19 13:25 VBG Base Excess -0.4 mmol/L (0.0-2.0) L 03/14/19 13:25 VBG Potassium 3.9 mmol/L (3.6-5.2) 03/14/19 13:25 Sodium 140.0 mmol/l (132-148) 03/14/19 13:25 Chloride 104.0 mmol/L (98-107) 03/14/19 13:25 Glucose 138 mg/dl (75-110) H 03/14/19 13:25 Lactate 1.9 mmol/L (0.7-2.1) 03/14/19 13:25 Sodium 139 mmol/L (132-148) 03/19/19 06:54 Potassium 4.5 mmol/L (3.6-5.2) 03/19/19 06:54 Chloride 102 mmol/L (98-107) 03/19/19 06:54 Carbon Dioxide 26 mmol/L (22-30) 03/19/19 06:54 Anion Gap 16 (10-20) 03/19/19 06:54 BUN 30 mg/dL (9-20) H 03/19/19 06:54 Creatinine 1.8 mg/dL (0.8-1.5) H 03/19/19 06:54 Est GFR ( Amer) 44 03/19/19 06:54 Est GFR (Non-Af Amer) 37 03/19/19 06:54 POC Glucose (mg/dL) 201 mg/dL (65-110) H 03/21/19 12:03 Random Glucose 120 mg/dL (75-110) H D 03/19/19 06:54 Calcium 9.4 mg/dl (8.6-10.4) 03/19/19 06:54 Phosphorus 4.0 mg/dL (2.5-4.5) 03/19/19 06:54 Magnesium 1.9 mg/dL (1.6-2.3) 03/19/19 06:54 Total Bilirubin 0.6 mg/dL (0.2-1.3) 03/19/19 06:54 AST 16 U/L (17-59) L 03/19/19 06:54 ALT 25 U/L (21-72) 03/19/19 06:54 Alkaline Phosphatase 47 U/L (38-126) 03/19/19 06:54 Troponin I 0.1110 ng/mL (0.00-0.120) 03/14/19 20:40 NT-Pro-B Natriuret Pep 565 pg/mL (0-900) 03/14/19 11:45 Total Protein 6.7 g/dL (6.3-8.3) 03/19/19 06:54 Albumin 3.8 g/dL (3.5-5.0) 03/19/19 06:54 Globulin 2.9 gm/dL (2.2-3.9) 03/19/19 06:54 Albumin/Globulin Ratio 1.3 (1.0-2.1) 03/19/19 06:54 Venous Blood Potassium 3.9 mmol/L (3.6-5.2) 03/14/19 13:25 Urine Color Yellow (YELLOW) 03/14/19 14:26 Urine Clarity Clear (Clear) 03/14/19 14:26 Urine pH 5.0 (5.0-8.0) 03/14/19 14:26 Ur Specific [place] 1.016 (1.003-1.030) 03/14/19 14:26 Urine Protein 2+ mg/dL (NEGATIVE) H 03/14/19 14:26 Urine Glucose (UA) Normal mg/dL (Normal) 03/14/19 14:26 Urine Ketones Negative mg/dL (NEGATIVE) 03/14/19 14:26 Urine Blood Negative (NEGATIVE) 03/14/19 14:26 Urine Nitrate Negative (NEGATIVE) 03/14/19 14:26 Urine Bilirubin Negative (NEGATIVE) 03/14/19 14:26 Urine Urobilinogen 2.0 mg/dL (0.2-1.0) 03/14/19 14:26 Ur Leukocyte Esterase Neg Isabel/uL (Negative) 03/14/19 14:26 Urine WBC (Auto) 2 /hpf (0-5) 03/14/19 14:26 Urine RBC (Auto) < 1 /hpf (0-3) 03/14/19 14:26 Influenza Typ A,B (EIA) Negative for flu a/b (NEGATIVE) 03/14/19 19:39 Blood Type O POSITIVE 03/17/19 07:54 Antibody Screen Negative 03/17/19 07:54 Discharge Exam - Head Exam Head Exam: ATRAUMATIC, NORMAL INSPECTION, NORMOCEPHALIC Discharge Plan - Discharge Medications Prescriptions: Levofloxacin [Levaquin] 500 mg PO DAILY #21 tablet - Follow Up Plan Condition: STABLE Disposition: HOME/ ROUTINE Instructions: Heart Healthy Diet, Heart Failure, Adult (DC), Levofloxacin (Systemic), Diabetes Diet , Chest Pain (DC) Additional Instructions: follow up with PMD in 1 week levaquin 500mg po daily x3 weeks as per DR Romo advance diet slowly Referrals: Danrell Yeung MD [Staff Provider] - Marshall Madison MD [Staff Provider] - 1 Week Dale Romo MD [Staff Provider] - Spenser Delacruz Jr., MD [Staff Provider] -
== END 2019-03-21 14:40 | disposition home or self-care (01) | DRG 871 ==
LOC: C.ER 10:38 → C.9E 15:17 → C.6T 17:23 → OBSVTOIN 03-17 12:00
PROVIDERS: ADMIT Internal Medicine Critical Care Medicine; ATTEND Internal Medicine Critical Care Medicine
DX: R78.81 Bacteremia (principal); K35.32 Acute appendicitis with perforation, localized peritonitis, and gangrene, without abscess; I13.0 Hypertensive heart and chronic kidney disease with heart failure and stage 1 through stage 4 chronic kidney disease, or unspecified chronic kidney disease; R07.9 Chest pain, unspecified; E78.00 Pure hypercholesterolemia, unspecified; I25.10 Atherosclerotic heart disease of native coronary artery without angina pectoris; Z86.73 Personal history of transient ischemic attack (TIA), and cerebral infarction without residual deficits; Z87.891 Personal history of nicotine dependence; Z90.49 Acquired absence of other specified parts of digestive tract; Z95.1 Presence of aortocoronary bypass graft; M19.90 Unspecified osteoarthritis, unspecified site; E11.22 Type 2 diabetes mellitus with diabetic chronic kidney disease; N18.9 Chronic kidney disease, unspecified; I50.9 Heart failure, unspecified